=== PATIENT | female | born 1940 | race Caucasian/White ===

== ENCOUNTER 2016-02-27 15:37 | Inpatient (IN) | payer OTHER ==
[~2016-02-27] VITALS: Ht 154.9 cm; Wt 80.6 kg
[~2016-02-27 15:37] MED LIST: ADVIN25050 PO; APR50 PO; ASPEC81 PO; CARV25TA2 PO; CRSUNK PO; FERRTAB18 PO; FLNIN/ NAE; GLIP-197 PO; IPRA1AER2 INH; LEVO1TAB PO; NRV5 PO; OXGN; SERT1TAB88 PO; [UNRECOGNIZED DRUG - CODE] PO
--- NOTE | 2016-02-27 16:05 | EMERGENCY ROOM VISIT NOTE ---
History Report prepared by Lazaro: Matt Alonso Under the Supervision of: Dr. Robert Sanchez M.D. First contact with patient: 15:46 Chief Complaint: SHORTNESS OF BREATH Stated Complaint: DIFFICULTY BREATHING, PAIN IN LEFT SIDE/ABD History of Present Illness The patient is a 75 year old female who presents to the Emergency Room with complaints of worsening shortness of breath that started a week ago. The patient was just here 6 days ago for shortness of breath and was diagnosed with a pleural effusion. Her shortness of breath continued to worsen, especially with walking. She is on nasal cannula 2 liters, 24 hours per day. She is currently at 90% oxygen according to the nursing staff. The patient also complains of some left upper abdominal pain. The patient was just diagnosed with lung cancer today. She does not know what the exact game-plan is yet. She is going to see a cancer specialist at [facility] early next week. The patient denies any chest pain or swelling in her legs. Source of History: patient, nursing staff Onset: A week ago Position: other (global - shortness of breath) Timing: worsening Modifying Factors (Worsening): other (walking) Associated Symptoms: + abdominal pain, No chest pain Note: Associated symptoms: Denies any swelling in her legs. Review of Systems See HPI for pertinent positives & negatives. A total of 10 systems reviewed and were otherwise negative. Past Medical & Surgical Medical Problems: (1) Carotid stenosis (2) COPD (chronic obstructive pulmonary disease) (3) COPD exacerbation (4) DM2 (diabetes mellitus, type 2) (5) Hypertension (6) Hypertensive heart disease (7) Hypothyroid (8) Kidney disease (9) Nocturnal hypoxemia (10) Pulmonary hypertension (11) Respiratory failure, acute Surgical Problems: (1) H/O endarterectomy (2) History of total abdominal hysterectomy Family History Diabetes mellitus Heart disease Hypertension Social History Smoking Status: Former Smoker Alcohol Use: none Drug Use: none Marital Status: Housing Status: lives alone Occupation Status: unemployed Current/Historical Medications Scheduled Amlodipine Besylate (Amlodipine Besylate), 2.5 MG PO QAM Aspirin Enteric Coated (Ecotrin Or Generic), 81 MG PO DAILY Carvedilol (Coreg), 50 MG PO BID Cholecalciferol (Vitamin D3), 1 TAB PO DAILY Cyanocobalamin (Vitamin B-12), 1,000 MCG PO DAILY Fluticasone Prop/Salmeterol (Advair Diskus 250-50 Mcg/Dose), 1 PUFF PO DAILY Fluticasone Propionate (Fluticasone Propionate), 2 SPRAY LATRICE DAILY Glipizide (Glipizide Er), 5 MG PO DAILY Hydralazine HCl (Hydralazine HCl), 75 MG PO TID Ipratropium-Albuterol (Combivent Respimat), 1 PUFFS INH QID Iron-Vitamin C (Vitron-C), 1 TAB PO DAILY Levothyroxine Sodium (Levothyroxine Sodium), 137 MCG PO DAILY Loratadine (Ra Loratadine), 10 MG PO DAILY Oxygen (Oxygen), 2 LITERS NA HS Sertraline HCl (Sertraline HCl), 25 MG PO DAILY Miscellaneous Medications Rosuvastatin Calcium (Rosuvastatin Calcium), Unknown Dose Allergies Coded Allergies: No Known Allergies (Verified , 02/27/16) Physical Exam Vital Signs Date Time Temp Pulse Resp B/P Pulse Ox O2 Delivery O2 Flow Rate FiO2 02/27/16 19:15 69 20 145/80 94 Nasal Cannula 2.0 02/27/16 17:36 73 20 148/84 93 Nasal Cannula 2.0 02/27/16 16:12 68 02/27/16 15:55 Nasal Cannula 2.0 02/27/16 15:55 90 Nasal Cannula 2.0 02/27/16 15:43 36.9 72 18 100/56 86 Nasal Cannula 2.0 Physical Exam CONSTITUTIONAL: Mild distress. HEENT: No icterus, moist mucous membranes NECK: No meningismus, trachea is midline. CARDIOVASCULAR: Regular rate, normal perfusion RESPIRATORY: Unlabored breathing. Clear to auscultation. GASTROINTESTINAL: Non-tender GENITOURINARY: No flank tenderness MUSCULOSKELETAL: Full range of motion NEUROLOGIC: No acute gross focal deficits. PSYCHIATRIC: Normal affect SKIN: Normal for ethnicity. Medical Decision & Procedures ER Provider Diagnostic Interpretation: X-ray results as stated below per my interpretation and radiologist interpretation. Other radiology results as stated below per my review and radiologist interpretation. CT ANGIOGRAM OF THE CHEST CLINICAL HISTORY: Chest pain. Suspected pulmonary embolism. COMPARISON STUDY: 02/21/2016 TECHNIQUE: Following the IV administration of 95 mL of Optiray-320, CT angiogram of the thorax was performed from the thoracic inlet to the lung bases utilizing the pulmonary embolus protocol. Images are reviewed in the axial, sagittal, and coronal planes. IV contrast was administered without complication. MIP imaging was performed. CT DOSE: 488.84 mGy.cm FINDINGS: There is a mediastinal and right hilar mass which narrows the right renal artery. At the subcarinal level, the mass measures 38 mm. The right paratracheal region, the mass measures 5.5 cm. There was no evidence of thoracic aortic dilatation. There were no pulmonary artery filling defects to indicate acute pulmonary embolism. There is a moderate right pleural effusion. There is a small pericardial effusion. There is right middle and lower lobe atelectasis. There is a stable 19 mm right apical opacity. There is underlying pulmonary emphysema. Scattered tiny pulmonary nodules remain stable. IMPRESSION: 1. No CT evidence of acute pulmonary embolism 2. Moderate right pleural effusion with associated right middle lobe and lower lobe atelectasis 3. Persistent right hilar and mediastinal mass/adenopathy. There is secondary narrowing of the right upper lobe pulmonary artery. This mass/adenopathy is almost certainly neoplastic. Again pelvic consultation for biopsy is recommended. Electronically signed by: Jose Lawson M.D. 02/27/2016 6:23 PM Dictated Date/Time: 02/27/2016 6:17 PM CHEST ONE VIEW PORTABLE CLINICAL HISTORY: dyspnea COMPARISON STUDY: 02/23/2016 FINDINGS: The heart is enlarged. There is an increasing right pleural effusion with associated right basilar atelectasis/consolidation. Left lung appears clear. The right hilum remains enlarged.[ IMPRESSION: Increasing right pleural effusion with associated right basilar atelectasis/consolidation. Right hilar enlargement. Electronically signed by: Jose Lawson M.D. 02/27/2016 4:42 PM Dictated Date/Time: 02/27/2016 4:41 PM Laboratory Results 02/27/16 16:30 Red Blood Count 3.73, Mean Corpuscular Volume 99.5, Mean Corpuscular Hemoglobin 30.8, Mean Corpuscular Hemoglobin Concent 31.0, Mean Platelet Volume 9.1, Neutrophils (%) (Auto) 75.6, Lymphocytes (%) (Auto) 13.0, Monocytes (%) (Auto) 9.7, Eosinophils (%) (Auto) 1.0, Basophils (%) (Auto) 0.2, Neutrophils # (Auto) 6.33, Lymphocytes # (Auto) 1.09, Monocytes # (Auto) 0.81, Eosinophils # (Auto) 0.08, Basophils # (Auto) 0.02 02/27/16 16:30 Test 02/27/16 16:30 02/27/16 19:33 White Blood Count 8.37 K/uL (4.8-10.8) Red Blood Count 3.73 M/uL (4.2-5.4) Hemoglobin 11.5 g/dL (12.0-16.0) Hematocrit 37.1 % (37-47) Mean Corpuscular Volume 99.5 fL (80-100) Mean Corpuscular Hemoglobin 30.8 pg (25-34) Mean Corpuscular Hemoglobin Concent 31.0 g/dl (32-36) Platelet Count 167 K/uL (130-400) Mean Platelet Volume 9.1 fL (7.4-10.4) Neutrophils (%) (Auto) 75.6 % Lymphocytes (%) (Auto) 13.0 % Monocytes (%) (Auto) 9.7 % Eosinophils (%) (Auto) 1.0 % Basophils (%) (Auto) 0.2 % Neutrophils # (Auto) 6.33 K/uL (1.4-6.5) Lymphocytes # (Auto) 1.09 K/uL (1.2-3.4) Monocytes # (Auto) 0.81 K/uL (0.11-0.59) Eosinophils # (Auto) 0.08 K/uL (0-0.5) Basophils # (Auto) 0.02 K/uL (0-0.2) RDW Standard Deviation 50.0 fL (36.4-46.3) RDW Coefficient of Variation 13.8 % (11.5-14.5) Immature Granulocyte % (Auto) 0.5 % Immature Granulocyte # (Auto) 0.04 K/uL (0.00-0.02) Prothrombin Time 10.4 SECONDS (9.0-12.0) Prothromb Time International Ratio 1.0 (0.9-1.1) Activated Partial Thromboplast Time 20.2 SECONDS (21.0-31.0) Partial Thromboplastin Ratio 0.8 Anion Gap 10.0 mmol/L (3-11) Est Creatinine Clear Calc Drug Dose 42.1 ml/min Estimated GFR () 56.5 Estimated GFR (Non- 48.7 BUN/Creatinine Ratio 15.8 (10-20) Calcium Level 8.8 mg/dl (8.5-10.1) Magnesium Level 2.1 mg/dl (1.8-2.4) Troponin I < 0.015 ng/ml (0-0.045) Pro-B-Type Natriuretic Peptide 572 pg/ml (0-1800) Labs reviewed by ED physician. Medications Administered Medications (Trade) Dose Ordered Sig/Gilbert Route Start Time Stop Time Status Last Admin Dose Admin Albuterol/ Ipratropium (Duoneb) 3 ml UD STAT INH 02/27/16 19:35 02/27/16 20:04 DC 02/27/16 20:13 3 ML ECG Indication: SOB/dyspnea Rate (beats per minute): 64 Rhythm: normal sinus Findings: other (normal axis, RBBB, non-specific ST findings) Comparison ECG Date: no prior available ED Course 1551: Past medical records reviewed. The patient was evaluated in room C4. A complete history and physical examination was performed. 1858: I reevaluated the patient and she is resting comfortably. The patient verbally expressed agreement and understanding of the treatment plan. The patient will be evaluated for further treatment. 1899: I discussed the patient with Fatemeh Walsh - she will evaluate the patient for further treatment. Medical Decision Differential diagnoses include: Cancerous complications, pleural effusion, CHF, pneumonia. 75-year-old presents into the emergency department with her family for evaluation of worsening dyspnea especially with exertion. She states that she was seen by her doctor today and given a new diagnosis of presumed small cell lung cancer. She was recently discharged from hospital. X-rays remarkable for right-sided pleural effusion as well as hypoxia with exertion of roughly 86% despite using 2 L nasal cannula. Given increasing hypoxia and her diagnosis of cancer with pleural effusion decision made to admit. Consults Time Called: 1857 Consulting Physician: Fatemeh Walsh Returned Call: 1899 I discussed the patient with Fatemeh Walsh - she will evaluate the patient for further treatment. Impression Primary Impression: Pleural effusion Additional Impression: Hypoxia Scribe Attestation The scribe's documentation has been prepared under my direction and personally reviewed by me in its entirety. I confirm that the note above accurately reflects all work, treatment, procedures, and medical decision making performed by me. Departure Information Dispostion Being Evaluated By Hospitalist Referrals Callie Verdugo M.D. (PCP) Patient Instructions My [facility] Problem Qualifiers
[2016-02-27] MEDS ORDERED: OPTIRAY 320 IV PRN (16:15)
--- NOTE | 2016-02-27 16:45 | DIAGNOSTIC IMAGING REPORT ---
CHEST ONE VIEW PORTABLE CLINICAL HISTORY: dyspnea COMPARISON STUDY: 02/23/2016 FINDINGS: The heart is enlarged. There is an increasing right pleural effusion with associated right basilar atelectasis/consolidation. Left lung appears clear. The right hilum remains enlarged.[ IMPRESSION: Increasing right pleural effusion with associated right basilar atelectasis/consolidation. Right hilar enlargement. Electronically signed by: Jose Lawson M.D. 02/27/2016 4:42 PM Dictated Date/Time: 02/27/2016 4:41 PM
[2016-02-27 16:50] LABS: BASO % 0.2 %; BASO ABS # 0.02 K/uL (0-0.2); COMPLETE YES; HEMATOCRIT 37.1 % (37-47); IG% 0.5 %; LYMPH ABS # 1.09 K/uL (1.2-3.4); MEAN CELL VOLUME 99.5 fL (80-100); MEAN CORPUSCULAR HEMOGLOBIN 30.8 pg (25-34); MEAN PLATELET VOLUME 9.1 fL (7.4-10.4); MONO % 9.7 %; NEUT % 75.6 %; PLATELET COUNT 167 K/uL (130-400); RED BLOOD COUNT 3.73 M/uL (4.2-5.4); WHITE BLOOD COUNT 8.37 K/uL (4.8-10.8)
[2016-02-27 17:00] LABS: PARTIAL THROMBOPLASTIN RATIO 0.8; PROTHROMBIN TIME (PATIENT) 10.4 SECONDS (9.0-12.0)
[2016-02-27] MEDS ORDERED: SYN137 PO (17:15)
[2016-02-27] MEDS ORDERED: ROSU40TA18 (17:15)
[2016-02-27 17:20] LABS: BLOOD UREA NITROGEN 17 mg/dl (7-18); BUN/CREATININE RATIO 15.8 (10-20); CALCIUM 8.8 mg/dl (8.5-10.1); CARBON DIOXIDE 29 mmol/L (21-32); CHLORIDE 101 mmol/L (98-107); GLUCOSE 135 mg/dl (70-99); POTASSIUM 4.2 mmol/L (3.5-5.1); SODIUM 140 mmol/L (136-145)
--- NOTE | 2016-02-27 18:25 | DIAGNOSTIC IMAGING REPORT ---
ADDENDUM Addendum: There is a voice recognition error in impression #3 The last sentence in impression #3 should read as follows: Again pulmonary consultation for biopsy is recommended. Electronically signed by: Jose Lawson M.D. 02/27/2016 10:21 PM Dictated Date/Time: 02/27/2016 10:[address] ANGIOGRAM OF THE CHEST CLINICAL HISTORY: Chest pain. Suspected pulmonary embolism. COMPARISON STUDY: 02/21/2016 TECHNIQUE: Following the IV administration of 95 mL of Optiray-320, CT angiogram of the thorax was performed from the thoracic inlet to the lung bases utilizing the pulmonary embolus protocol. Images are reviewed in the axial, sagittal, and coronal planes. IV contrast was administered without complication. MIP imaging was performed. CT DOSE: 488.84 mGy.cm FINDINGS: There is a mediastinal and right hilar mass which narrows the right renal artery. At the subcarinal level, the mass measures 38 mm. The right paratracheal region, the mass measures 5.5 cm. There was no evidence of thoracic aortic dilatation. There were no pulmonary artery filling defects to indicate acute pulmonary embolism. There is a moderate right pleural effusion. There is a small pericardial effusion. There is right middle and lower lobe atelectasis. There is a stable 19 mm right apical opacity. There is underlying pulmonary emphysema. Scattered tiny pulmonary nodules remain stable. IMPRESSION: 1. No CT evidence of acute pulmonary embolism 2. Moderate right pleural effusion with associated right middle lobe and lower lobe atelectasis 3. Persistent right hilar and mediastinal mass/adenopathy. There is secondary narrowing of the right upper lobe pulmonary artery. This mass/adenopathy is almost certainly neoplastic. Again pelvic consultation for biopsy is recommended. Electronically signed by: Jose Lawson M.D. 02/27/2016 6:23 PM Dictated Date/Time: 02/27/2016 6:17 PM
[2016-02-27] MEDS ORDERED: ALBUT/IPRATROP 3MG/0.5MG NEB 3 ML VIAL INH STA (19:35)
[2016-02-27 20:56] LABS: ISTAT ARTERIAL BLOOD GAS HCO3 28 meq/L (19-24); ISTAT ARTERIAL BLOOD GAS PCO2 52 mmHg (35-46); ISTAT ARTERIAL BLOOD GAS PO2 63 mmHg (80-95); ISTAT ARTERIAL BLOOD GAS pH 7.34 (7.35-7.45); ISTAT CARBON DIOXIDE 30 mEq/l (24-31)
[2016-02-27 21:00] LABS: MAGNESIUM 2.1 mg/dl (1.8-2.4)
[2016-02-27 21:13] VITALS: BP 146/75; PULSE 66; TEMP 36.7; Ht 154.9 cm; Wt 80.6 kg
[2016-02-27 21:47] VITALS: O2SAT 94
[2016-02-27] MEDS: ENOXAPARIN 40 MG/0.4 ML SYR SC SCH (22:02)
[2016-02-27] MEDS: ACETAMINOPHEN 325 MG TAB PO PRN (22:07)
[2016-02-27 22:21] LABS: ALKALINE PHOSPHATASE 43 U/L (45-117); ALT/SGPT 29 U/L (12-78); AST/SGOT 26 U/L (15-37)
--- NOTE | 2016-02-27 22:41 | DIAGNOSTIC IMAGING REPORT ---
CT SCAN OF THE ABDOMEN AND PELVIS WITHOUT CONTRAST CLINICAL HISTORY: Left lower quadrant abdominal pain COMPARISON STUDY: No previous studies for comparison. TECHNIQUE: CT scan of the abdomen and pelvis was performed from the lung bases to the proximal femurs. Images are reviewed in the axial, sagittal, and coronal planes. IV contrast was not administered for this examination. CT DOSE: 549.59 mGy.cm FINDINGS: Lower chest: There is pathologic mediastinal adenopathy. There is a right pleural effusion. There is right middle lobe and right lower lobe atelectasis/consolidation. There is a small pericardial effusion. Liver: The unenhanced liver is normal in size, contour, and attenuation. There is no intrahepatic biliary ductal dilatation. Gallbladder: Unremarkable. Spleen: Normal in size and attenuation. Pancreas: Unremarkable. Adrenal glands: Unremarkable. Kidneys: There is contrast excretion secondary to the CT scan performed earlier in the day. There is a 9 mm right renal cyst. There is no hydronephrosis. Bowel: There are no transition zones indicate bowel obstruction. There is no evidence of acute diverticulitis. There is no evidence of acute appendicitis. Peritoneum: There is no intraperitoneal free air or abdominal ascites. Vasculature: The abdominal aorta is normal in course and caliber. Adenopathy: There is no abdominal or pelvic adenopathy Pelvic viscera: The uterus appears surgically absent Skeletal structures: No destructive osseous lesions are seen. IMPRESSION: 1. No evidence of bowel obstruction. No evidence of free air 2. No acute inflammatory changes within the abdomen or pelvis 3. Pathologic mediastinal and right hilar adenopathy 4. Moderate right pleural effusion with right middle lobe and right lower lobe atelectatic change 5. Small pericardial effusion. Coronary artery calcifications. Electronically signed by: Jose Lawson M.D. 02/27/2016 10:39 PM Dictated Date/Time: 02/27/2016 10:34 PM
[2016-02-27] MEDS ORDERED: GLUCOSE 40% GEL 15 GM TUBE PO PRN (23:45)
[2016-02-27] MEDS ORDERED: GLUCOSE 10 TABS/TUBE PO PRN (23:45)
[2016-02-27] MEDS ORDERED: ONDANSETRON INJ 2 MG/ML 2 ML VIAL IV PRN (23:45)
[2016-02-27] MEDS ORDERED: GLUCAGON FOR INJ 1 MG VIAL SQ PRN (23:45)
[2016-02-27] MEDS ORDERED: DEXTROSE 50% 50 ML SYR IV PRN (23:45)
[2016-02-28] VITALS (8 sets, daily range): BP systolic 114–150; BP diastolic 56–76; PULSE 56–64; TEMP 36.2–36.9; O2SAT 90–96
[2016-02-28] MEDS ORDERED: LORAZEPAM 0.5 MG TAB PO ONE (01:00)
[2016-02-28] MEDS: LEVOTHYROXINE 137 MCG TAB PO SCH (06:00)
[2016-02-28 07:19] LABS: BASO % 0.4 %; BASO ABS # 0.03 K/uL (0-0.2); COMPLETE YES; EOS % 1.9 %; HEMATOCRIT 35.7 % (37-47); IG% 0.3 %; LYMPH % 17.2 %; LYMPH ABS # 1.25 K/uL (1.2-3.4); MEAN CELL VOLUME 98.6 fL (80-100); MEAN CORPUSCULAR HEMOGLOBIN 30.7 pg (25-34); MEAN CORPUSCULAR HGB CONC 31.1 g/dl (32-36); MEAN PLATELET VOLUME 9.1 fL (7.4-10.4); MONO % 11.8 %; NEUT % 68.4 %; PLATELET COUNT 157 K/uL (130-400); RED BLOOD COUNT 3.62 M/uL (4.2-5.4); WHITE BLOOD COUNT 7.28 K/uL (4.8-10.8)
[2016-02-28] MEDS: INSULIN ASPART 100 UNITS/ML 3 ML PEN SC SCH ×4 (07:59→20:44)
[2016-02-28] MEDS: FLUTICASONE PROPIONATE NA SPR 16 GM BTL NAE SCH (08:03)
[2016-02-28] MEDS: FLUTICASONE/SALMETEROL 250/50 (ADVAIR) 14 PUFF/1 INHALER INH SCH ×2 (08:03→21:02)
[2016-02-28] MEDS: SERTRALINE HCL 50 MG TAB PO SCH (08:04)
[2016-02-28] MEDS: ROSUVASTATIN CALCIUM 20 MG TAB PO SCH (08:04)
[2016-02-28] MEDS: CARVEDILOL 25 MG TAB PO SCH ×2 (08:05→21:03)
[2016-02-28] MEDS: LORATADINE 10 MG TAB PO SCH (08:05)
[2016-02-28] MEDS: ASPIRIN 81 MG ECTAB PO SCH (08:05)
[2016-02-28] MEDS: AMLODIPINE BESYLATE 5 MG TAB PO SCH (08:05)
--- NOTE | 2016-02-28 08:12 | HISTORY & PHYSICAL EXAMINATION ---
DATE OF ADMISSION: 02/27/2016 PRIMARY CARE DOCTOR: Dr. Verdugo. Hx obtained from px and records. CHIEF COMPLAINT: Shortness of breath. HISTORY OF PRESENT ILLNESS: Medical history significant for chronic hypoxemic respiratory failure secondary to COPD on home O2, past tobacco abuse, hypertension, peripheral vascular disease, DM2 on oral meds, recent diagnosis of small cell lung cancer. Recent confinement last week for pleural effusion, likely malignant. Thoracenteses done. 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 Findings disclosed to the patient 2 days ago by PCP. Yesterday patient noted sudden shortness of breath, no chest pain, no cough symptoms. Patient complaining of some achy left-sided abdominal pain. Brought to the Emergency Room. O2 sats 86 on nasal cannula. Denies weight gain. MEDICAL HISTORY: As above. SURGERIES: Vascular procedures, total abdominal hysterectomy. HOME MEDICATIONS: Include Cholecalciferol, glipizide, ipratropium, oxygen, amlodipine, aspirin, carvedilol, fluticasone, hydralazine, levothyroxine, loratadine, Rosuvastatin, sertraline. FAMILY HISTORY: Heart disease. PERSONAL AND SOCIAL HISTORY: Past tobacco abuse. No chronic intake of alcoholic beverages. REVIEW OF SYSTEMS: As per HPI, all other ROS negative. PHYSICAL EXAMINATION: VITAL SIGNS: Blood pressure was noted to be 100/50, pulse rate 72, respiratory rate 18, temperature 36.9, sats 86 on 2 liters. GENERAL: Noted to be in minimal respiratory distress, looks younger for stated age. SKIN pallor HEENT: Pale palpebral conjunctivae. Dry buccal mucosa. nasal cannula in place NECK: No JVD. Supple. CHEST: Decreased breath sounds,R. HEART: Regular rate and rhythm. ABDOMEN: Minimal tenderness on the LUQ. EXTREMITIES: No edema, tenderness. NEUROLOGIC: No gross focality. LABS: Hemoglobin was noted to be 11.5, hematocrit 37.1, white cells 8.3, platelets 167. Sodium was noted to be 140, potassium 4.2, chloride 101, CO2 of 29, BUN 70, creatinine 1.1, glucose 135 Hemoglobin A1c on February 2016 was 6.3. CTA no pulmonary embolism, right pleural effusion with atelectasis, right hilar mediastinal adenopathy. CT abdomen and pelvis showed small pericardial effusion, no bowel obstruction. ABG pH 7.4, pCO2 of 52, pO2 of 63, 90% on 2L ASSESSMENT: 1. Acute on chronic hypoxemic respiratory failure secondary to malignant pleural effusion re-accumulation recent diagnosis of small cell lung cancer hx COPD, past tobacco abuse 2. pericardial effusion, incidental finding on CT. 3. HTN, stable 4. Hx PVD sp surgery 5. DM2 on oral meds, well controlled as of recent HgA1c. PLAN: PCU supplemental O2. Nebs p.r.n. Pulmonary consult. Recurrent pleural effusion. (Px known to Dr. Hay) Oncology consult RE SCLC, new dx TTE RE pericardial effusion ISS BG goal 140-180 DVT prophylaxis, Lovenox subQ. Full code. MTDD
[2016-02-28] MEDS ORDERED: NON-FORMULARY MEDICATION (Iron-Vitamin C (Vitron-C) 1 TAB) PO SCH (09:00)
[2016-02-28] MEDS ORDERED: NURSING VERBAL MED ORDER ONE (09:15)
[2016-02-28] MEDS ORDERED: LIDOCAINE HCL 1% 20 ML VIAL INFIL SCH (10:00)
--- NOTE | 2016-02-28 10:58 | PULMONARY CONSULTATION ---
DATE OF CONSULTATION: 02/28/2016 DATE OF CONSULTATION: 02/28/2016. HISTORY OF PRESENT ILLNESS: The patient is a 75-year-old female who was readmitted to the hospital with respiratory insufficiency with hypercapnia and Dr. Lujan has asked me to evaluate the patient from a pulmonary standpoint. She was seen in the Emergency Room and general is followed by Dr. Verdugo with worsening shortness of breath that started actually several days prior to admission. She denies any cough or chest pain, had significant shortness of breath when she was driving, stopped at a relative's house and then was brought to the hospital. In the Emergency Room, she was found to be stable with an oxygen saturation of 86% on 2 liters, increased to 94% on 2 liters. Hemodynamically stable with blood pressure 100/56, pulse 72 and regular. She denies any chest pain, fevers, night sweats, orthopnea or peripheral edema. She actually was fairly active at home following her recent hospitalization. CT angiogram showed no evidence of pulmonary embolism. It does reveal recurrence of the moderate sized right pleural effusion with mass-like abnormality of the right upper lobe with narrowing of the right upper lobe pulmonary artery and significant right hilar adenopathy. She was scheduled for an evaluation for consideration for bronchoscopy this week. She recently was hospitalized with a fairly large right-sided pleural effusion and had a thoracentesis done by [facility] Lion on the . He removed 830 mL of serosanguineous fluid and is consistent with small cell carcinoma with metastasis. She was discharged thereafter since she was quite stable and now has recurrent right pleural effusion with regional atelectasis at the right base. This most certainly is etiology for her admission and readmission. Dr. Butts was not here to perform any procedure such as bronchoscopy or VATS procedure which I believe the patient probably will need now. She is sitting in the chair now, states she is comfortable with oxygen and her treatment since last night but she has not been active. PAST MEDICAL HISTORY: Positive for carotid artery stenosis, moderate degree chronic obstructive lung disease, diabetes, hypertension, chronic kidney disease, hypothyroidism, mild pulmonary hypertension, right lower lobe and left lower lobe nodules. PAST SURGICAL HISTORY: Carotid endarterectomy, hysterectomy for dysfunctional uterine bleeding. FAMILY HISTORY: Significant for coronary artery disease, hypertension and diabetes. Her of lung cancer about 14 years ago. SOCIAL HISTORY: She has about a [id number] history of cigarette smoking, quit several years ago. She is not an alcohol user. From an occupational standpoint, she has not had any industrial exposures. ALLERGIES: None. MEDICATIONS: Noted. According to the records had a chest x-ray done in March 2007. CAT scan of the chest done at that time revealed small pericardial effusion with some infiltrative processes at the lung bases consistent with infection. She had a PET scan done on 10/16/2014 that was negative. There was some nodular densities in the right upper lobe in the periphery that did not show any metabolic activity, was hilar adenopathy that showed no activity either at that time. She also had a repeat CT of the chest done last August that showed progressive pulmonary nodularity in both hemithoraces. Neoplastic process was thought to be the most likely etiology. PHYSICAL EXAMINATION: GENERAL: Examination now shows the patient to be quite comfortable, pleasant and cooperative. VITAL SIGNS: Her blood pressure is 150/56, oxygen saturation 94% on 2 liters, pulse is 60 and regular, respiratory rate 20. She is afebrile. Weight 81.1 kilograms. She was 81.8 kilograms on the 22 of February at the time of discharge. HEAD, EYES, EARS, NOSE, AND THROAT: Unremarkable. I do not detect any adenopathy in the supraclavicular, axillary or submandibular area. HEART: Regular rate and rhythm. No murmurs are heard. LUNGS: Reveal decreased breath sounds over the entire right hemithorax with dullness from the scapula distally down to the base. Left lung is clear. ABDOMEN: The abdomen is soft and nontender. EXTREMITIES: She has no cyanosis, clubbing or edema. EKG shows normal sinus rhythm with a right bundle branch block with inferolateral ischemia. T-wave inversion is noted in the inferior leads when compared to the previous EKG of February 20. CAT scan of the chest is noted as above and shows significant recurrence of the right-sided pleural effusion. White count 7.28, hemoglobin 11.1, platelet count 157,000. Coagulation profile unremarkable. Chemistry profile unremarkable with normal liver function studies, lipase of 228. Blood gas revealed pH 7.43, pCO2 of 52, pO2 of 63 on what appears to be 2 liters of oxygen. IMPRESSION: 1. Respiratory insufficiency with hypercapnia. I believe this is related to recurrent right pleural effusions with atelectasis at the right base along with moderate degree of emphysema. 2. Right pleural effusion consistent with metastatic small cell carcinoma. 3. Myocardial ischemia with right bundle branch block noted on EKG. 4. Chronic obstructive pulmonary disease with exacerbation. RECOMMENDATIONS: 1. Cardiology evaluation because of the myocardial ischemia noted on EKG. This is different from the echocardiogram from the 20 of February, although at that time there was some ischemic changes noted, at least some T-wave inversion in the anterior lateral leads as well. Certainly silent angina along with a large right pleural effusion and COPD could be the etiology for her dyspnea and hypercapnia. 2. Evaluation with Dr. Butts for consideration for VATS procedure and bronchoscopy. 3. Oncology evaluation with Dr. Yanez or Dr. Ortega from the [facility] system. The patient's primary care provider is Dr. Verdugo. 4. Continue with her present medications including the Advair, Flonase, Lovenox for good DVT prophylaxis and she could use DuoNeb if needed. I believe the dyspnea most likely is secondary to recurrent right pleural effusion rather than COPD with exacerbation at this point. Thanks for asking me to evaluate Ms. Faustin and I would be glad to see her again in the future if you desire.
--- NOTE | 2016-02-28 12:34 | Medical Consult ---
Consultation Date of Consultation: Feb 28, 2016. Attending Physician: Yu Goel M.D. 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 Date of consultation: 02/28/[address] Juan Jose Parks. HPI: 75-year-old female, who has longstanding history of smoking which was discontinued sometime back, recently she was admitted at [facility] for symptomatic right pleural effusion, had thoracocentesis, pleural cytology positive for malignant cells, consistent with small cell lung cancer, now she is admitted for increasing shortness of breath, imaging study shows moderate right pleural effusion, I saw her at bedside, her son and daughter-in- law was also at bedside, I reviewed her medical records. She had several imaging studies in the last few years including PET-CT scan on 2 occasions since 2014, some mild metabolic active right lung nodules noted but no definitive diagnosis of cancer diagnosis was made, recently she had some increasing shortness of breath, she was admitted at [facility] , found to have new right pleural effusion which was not that in the PET-CT scan done in September,. Further imaging study and workup as follows Imaging studies: -PET-CT scan done on 10/16/2014 at [facility] showed no clear FDG avid lesions. Right lung nodule RT without any FDG uptake noted. Several small lymph nodes noted in the hilar mediastinal lesion which are also not metabolic active. -PET-CT scan done on 09/25/2015 showed multiple FDG avid right lung nodules, scattered patchy airspace disease which is not FDG avid, some uptake noted in the ascending colon at hepatic flexure region. -CT scan of the chest done on 02/21/2016 showed no evidence of pulmonary embolism , moderate right pleural effusion with compressive atelectatic changes noted in the right middle lobe and lower lobe. Progressive pathologically enlarged mediastinal and hilar lymphadenopathy. 4.1 x 1.1 cm right lower lobe opacity noted, scattered tiny lung nodules noted. -CT scan of the chest done on 02/27/2016 showed no evidence of pulmonary embolism , moderate right pleural effusion, persistent right hilar and mediastinal lymphadenopathy, 1.9 cm right apical opacity noted. -CT scan of the abdomen and pelvis done without intravenous contrast on 2016 showed no acute changes, no liver lesions, pathologic enlarged mediastinal right hilar lymphadenopathy noted, moderate right pleural effusion with right middle lobe and right lower lobe atelectatic changes, small pleural effusion. No ascites noted. Pathology: -Pleural fluid cytology--> positive for malignant cells consistent with small cell carcinoma. (02/23/2016). - splenic flexure polypectomy--> tubular adenoma (05/12/2007) -TNM staging--> T4 based on is little lung nodules noted in the previous imaging studies, N2, M1a based on malignant pleural effusion), stage IV disease. Presently she is receiving nasal cannula supplemental oxygen, sitting comfortably in the chair, no leg edema, no new cardiac or pulmonary symptoms, no hemoptysis, no significant weight loss, no headache. No focal neurological symptoms. No neuropathy symptoms. REVIEW OF SYSTEMS: GENERAL: No change in weight, current weight is around 181 lb, feeling slightly weak and tired but no fever or chills. SKIN: No skin rash, some bruising involving the left upper extremity when recently she was admitted Hospital, it is at the IV site . HEAD: No new headache, no dizziness. EYES: No recent change in the vision, no diplopia, EARS: No earache no tinnitus, NOSE: No epistaxis, No nasal discharge or stuffiness, MOUTH: No sores, no dysphagia, no hoarseness of voice, NECK: No lumps, No swelling in thyroid area. No stiffness. PULMONARY: Cough with scanty white expectant, no hemoptysis, shortness of breath on minimal exertion present, no chest pain, intermittent wheezing. CARDIOVASCULAR: No anginal chest pain, no PND, no orthopnea. No palpitation, no leg edema. No syncope. GASTROINTESTINAL: No abdominal pain, no nausea or vomiting. No diarrhea, No constipation. No blood in stool or black tarry stools. No abdominal distention. UROLOGIC: No burning urination. No hematuria. MUSCULOSKELETAL: She does complain of some nonspecific back pain, no other joint pain or swelling.. HEMATOLOGIC: No anemia, no bleeding disorder, No bruising. NEUROLOGIC: No seizures, no focal weakness, no speech difficulty, No memory disturbances. No tingling or numbness of the extremities. PSYCHIATRIC: No depression. No anxiety. No psychosis. Past medical and surgical history: - S/P right carotid endarterectomy in 2002, S/P left carotid enterectomy in November, -COPD, on oxygen therapy for the last 3-4 years. -hypertension, diabetes mellitus. -S/P hysterectomy in the past. Social history: She discontinue smoking habit several years back. Denies any ETOH abuse. Family history: Her diagnosis lung cancer about 16 years back and because of that. No other significant family history. Medications: please review her chart for detailed list of medications. Allergies:None On Exam: - Alert and oriented x3, well built woman, not in any distress. - HEENT: no icterus, no pallor, Throat:Normal. - Neck: No palpable cervical lymphadenopathy. - Chest: Decreased air entry in the right lung. - Abdomen: soft, nontender, no hepatomegaly, no splenomegaly. - No focal neuro deficit. - Extremities: no finger clubbing, no leg edema. Lab: -WBC 8300, H&H of 11.5/37, Platelet count of 167,000, BUN/Creat: 17/1.1, calcium 8.8, normal liver function test (02/27/2016) -BNP--> 572 which is in normal range. ASSESSMENT AND PLAN: 75-year-old female, a case of small cell carcinoma of the lung, she presented with the malignant right pleural effusion, pleural fluid cytology positive for malignant cells consistent with small cell carcinoma, imaging study showed some multiple lung nodules involving the right lung, significantly enlarged mediastinal and right hilar lymphadenopathy noted, no clear evidence of distant metastatic disease noted in the CT scan of the abdomen and pelvis, no focal neurological symptoms, discontinued smoking habit several years back, has few other comorbid conditions like hypertension, diabetes mellitus, COPD , she is on oxygen therapy for the last 3-4 years, she says that as of yesterday she was doing quite well, ambulating slowly by herself, she lives by herself. I reviewed with her and the her family members who had bedside regarding the diagnostic workup done in her case, she has stage IV disease, overall treatment goal which would be palliative and not curative, today she was seen by Dr. Butts, planning for PleurX catheter placement in early next week. For further staging workup, I would like to have following imaging studies: -MRI of the brain with and without intravenous contrast. -Bone scan. I would like to have uric acid and LDH. I also discussed with them regarding the role of systemic chemotherapy for metastatic small cell lung cancer that can be considered in her case, I would consider for combination of carboplatin and etoposide chemotherapy, reviewed with them regarding the chemotherapy treatment schedule, side effect profile. We can consider for starting chemotherapy as an outpatient. No role of radiation treatment at this time. If brain imaging study shows evidence of metastatic disease in the brain, she will need radiation treatment. If she has no evidence of brain metastatic disease and see response very well , may consider for whole-brain prophylactic radiation treatment. She has poor venous access, I would consider for port placement while she is in the hospital. Thanks for the consultation. Veto Ortega MD Hematology/Oncology (This note was completed using the dictation program Fluency Direct. As such, there may be misspellings, word substitutions, or other variations that should not change the essence of the clinical content of this encounter note. If there is need for further clarification, please direct questions to the provider listed above.) Past Medical/Surgical History Medical Problems: (1) Hypoxia Status: Acute (2) Hypoxia Status: Acute (3) Hypoxia Status: Acute (4) Pleural effusion Status: Acute (5) Pleural effusion Status: Acute (6) SOB (shortness of breath) Status: Acute Family History Diabetes mellitus Heart disease Hypertension Social History Smoking Status: Never Smoker Drug Use: none Marital Status: Housing Status: lives alone Occupation Status: unemployed Allergies Coded Allergies: No Known Allergies (Verified , 02/27/16) Current Inpatient Medications Current Inpatient Medications Medications (Trade) Dose Ordered Sig/Gilbert Route Start Time Stop Time Status Last Admin Dose Admin Ioversol (Optiray 320) 125 ml UD PRN IV 02/27/16 16:15 03/02/16 16:14 Albuterol/ Ipratropium (Duoneb) 3 ml Q2H PRN INH 02/27/16 19:45 03/28/16 19:44 Enoxaparin Sodium (Lovenox Inj) 40 mg Q24H SC 02/27/16 22:00 03/28/16 21:59 02/27/16 22:02 40 MG Acetaminophen (Tylenol Tab) 650 mg Q4H PRN PO 02/27/16 21:15 03/28/16 21:14 02/27/16 22:07 650 MG Amlodipine Besylate (Norvasc Tab) 2.5 mg QAM PO 02/28/16 09:00 2/20/17 08:59 02/28/16 08:05 2.5 MG Aspirin (Ecotrin Tab) 81 mg DAILY PO 02/28/16 09:00 03/29/16 08:59 02/28/16 08:05 81 MG Carvedilol (Coreg Tab) 50 mg BID PO 02/28/16 09:00 03/29/16 08:59 02/28/16 08:05 50 MG Salmeterol Xinafoate/ Fluticasone (Advair Diskus 250/50 Inh) 1 puff BID INH 02/28/16 09:00 03/29/16 08:59 02/28/16 08:03 1 PUFF Fluticasone Propionate (Flonase Nasal [place]) DAILY LATRICE 02/28/16 09:00 03/29/16 08:59 02/28/16 08:03 2 SPRAYS Hydralazine HCl (Apresoline Tab) 75 mg TID PO 02/28/16 09:00 03/29/16 08:59 02/28/16 08:06 75 MG Levothyroxine Sodium (Synthroid Tab) 137 mcg DAILYBB PO 02/28/16 06:30 03/29/16 06:29 02/28/16 06:00 137 MCG Loratadine (Claritin Tab) 10 mg DAILY PO 02/28/16 09:00 03/29/16 08:59 02/28/16 08:05 10 MG Sertraline HCl (Zoloft Tab) 25 mg DAILY PO 02/28/16 09:00 03/29/16 08:59 02/28/16 08:04 25 MG Rosuvastatin Calcium (Crestor Tab) 40 mg QAM PO 02/28/16 09:00 03/29/16 08:59 02/28/16 08:04 40 MG Insulin Aspart (novoLOG ASPART) SLIDING SCALE If C... ACHS SC 02/28/16 06:30 03/29/16 06:29 Glucose (Glucose 40% Gel) 15-30 GRAMS 15 GRAMS... UD PRN PO 02/27/16 23:45 03/28/16 23:44 Glucose (Glucose Chew Tab) 4-8 Tablets 4 Tabl... UD PRN PO 02/27/16 23:45 03/28/16 23:44 Dextrose (Dextrose 50% 50ML Syringe) 25-50ML OF 50% DW IV FOR... UD PRN IV 02/27/16 23:45 03/28/16 23:44 Glucagon (Glucagon Inj) 1 mg UD PRN SQ 02/27/16 23:45 03/28/16 23:44 Hydromorphone HCl (Dilaudid Inj) 0.5 mg Q3H PRN IV 02/27/16 23:45 03/12/16 23:44 Tramadol HCl (Ultram Tab) 25 mg Q6H PRN PO 02/27/16 23:45 03/28/16 23:44 Ondansetron HCl (Zofran Inj) 4 mg Q6H PRN IV 02/27/16 23:45 03/28/16 23:44 Lidocaine HCl (Xylocaine 1% Inj (Local)) 20 ml TODAY@1000 INFIL 02/28/16 10:00 02/28/16 23:59 Physical Exam Date Time Temp Pulse Resp B/P Pulse Ox O2 Delivery O2 Flow Rate FiO2 02/28/16 12:19 Nasal Cannula 2.0 02/28/16 11:47 36.4 59 20 138/69 90 02/28/16 08:00 36.6 64 20 150/56 90 02/28/16 07:48 Nasal Cannula 2.0 02/28/16 04:03 Nasal Cannula 2.0 02/28/16 03:57 36.2 62 20 137/70 94 2.0 02/28/16 00:09 36.7 57 20 123/67 91 2.0 02/28/16 00:05 Nasal Cannula 2.0 02/27/16 21:47 94 Nasal Cannula 2.0 02/27/16 21:15 Nasal Cannula 2.0 02/27/16 21:13 36.7 66 20 146/75 02/27/16 20:37 85 20 138/52 96 Room Air 02/27/16 19:15 69 20 145/80 94 Nasal Cannula 2.0 02/27/16 17:36 73 20 148/84 93 Nasal Cannula 2.0 02/27/16 16:12 68 02/27/16 15:55 Nasal Cannula 2.0 02/27/16 15:55 90 Nasal Cannula 2.0 1/20/17 15:43 36.9 72 18 100/56 86 Nasal Cannula 2.0 Laboratory Results Last 24 Hours Test 02/27/16 16:30 02/27/16 20:39 02/28/16 06:36 02/28/16 07:56 White Blood Count 8.37 K/uL 7.28 K/uL Red Blood Count 3.73 M/uL 3.62 M/uL Hemoglobin 11.5 g/dL 11.1 g/dL Hematocrit 37.1 % 35.7 % Mean Corpuscular Volume 99.5 fL 98.6 fL Mean Corpuscular Hemoglobin 30.8 pg 30.7 pg Mean Corpuscular Hemoglobin Concent 31.0 g/dl 31.1 g/dl Platelet Count 167 K/uL 157 K/uL Mean Platelet Volume 9.1 fL 9.1 fL Neutrophils (%) (Auto) 75.6 % 68.4 % Lymphocytes (%) (Auto) 13.0 % 17.2 % Monocytes (%) (Auto) 9.7 % 11.8 % Eosinophils (%) (Auto) 1.0 % 1.9 % Basophils (%) (Auto) 0.2 % 0.4 % Neutrophils # (Auto) 6.33 K/uL 4.98 K/uL Lymphocytes # (Auto) 1.09 K/uL 1.25 K/uL Monocytes # (Auto) 0.81 K/uL 0.86 K/uL Eosinophils # (Auto) 0.08 K/uL 0.14 K/uL Basophils # (Auto) 0.02 K/uL 0.03 K/uL RDW Standard Deviation 50.0 fL 50.3 fL RDW Coefficient of Variation 13.8 % 13.8 % Immature Granulocyte % (Auto) 0.5 % 0.3 % Immature Granulocyte # (Auto) 0.04 K/uL 0.02 K/uL Prothrombin Time 10.4 SECONDS Prothromb Time International Ratio 1.0 Activated Partial Thromboplast Time 20.2 SECONDS Partial Thromboplastin Ratio 0.8 Sodium Level 140 mmol/L Potassium Level 4.2 mmol/L Chloride Level 101 mmol/L Carbon Dioxide Level 29 mmol/L Anion Gap 10.0 mmol/L Blood Urea Nitrogen 17 mg/dl Creatinine 1.10 mg/dl Est Creatinine Clear Calc Drug Dose 42.1 ml/min Estimated GFR () 56.5 Estimated GFR (Non- 48.7 BUN/Creatinine Ratio 15.8 Random Glucose 135 mg/dl Calcium Level 8.8 mg/dl Magnesium Level 2.1 mg/dl Total Bilirubin 0.2 mg/dl Direct Bilirubin < 0.1 mg/dl Aspartate Amino Transf (AST/SGOT) 26 U/L Alanine Aminotransferase (ALT/SGPT) 29 U/L Alkaline Phosphatase 43 U/L Troponin I < 0.015 ng/ml Pro-B-Type Natriuretic Peptide 572 pg/ml Total Protein 6.5 gm/dl Albumin 3.3 gm/dl Lipase 228 U/L Bedside Blood Gas pH (LAB) 7.34 Bedside Blood Gas pCO2 (LAB) 52 mmHg Bedside Blood Gas pO2 (LAB) 63 mmHg Bedside Blood Gas HCO3 (LAB) 28 meq/L Bedside Blood Gas Total CO2 30 mEq/l Bedside Blood Gas Base Excess (LAB) 2.0 meq/L Bedside Blood Gas O2 Saturation 90.0 % Bedside Glucose 120 mg/dl Test 02/28/16 12:08 Bedside Glucose 114 mg/dl
--- NOTE | 2016-02-28 13:13 | SURGICAL CONSULTATION ---
DATE OF CONSULTATION: 02/28/2016 DATE OF CONSULTATION: 02/28/2016. REASON FOR CONSULTATION: Evaluate for possible thoracoscopic surgery. HISTORY OF PRESENT ILLNESS: Merlyn Faustin is a delightful 75-year-old who is originally from [place], [place]. She has a history of cigarette smoking but quit many years ago. She presented with increasing shortness of breath and was admitted through the Emergency Department 02/21/2016. On 02/23/2016 she underwent a right thoracentesis and 850 mL of fluid was drained, which was sent for cytology. This was consistent with metastatic small cell carcinoma. The patient felt better after the fluid has been drained off on the and presented back on the with increasing shortness of breath. A CT scan was performed which showed no evidence of pulmonary emboli but she did have a significant amount of fluid which appears to be fairly homogenous with total collapse of her right lower lobe along with her right middle lobe. She also has significant adenopathy in the hilum and mediastinum. She is fluid reaccumulated fairly quickly. I was asked to evaluate her to address this pleural fluid. The patient has been getting short of breath over the last several months, but this has worsened. She has not lost much in the way of weight. We discussed this in her findings in detail. PAST MEDICAL HISTORY: 1. Small cell lung carcinoma with malignant right pleural effusion. 2. History of cigarette smoking but quit 30 years ago. 3. Diabetes mellitus. 4. Hypertension. 5. Chronic renal insufficiency. 6. Chronic obstructive pulmonary disease. 7. Carotid artery disease in the past. 8. Hypothyroidism. 9. Mild pulmonary hypertension. PAST SURGICAL HISTORY: 1. 5, para 5, abortus 0. 2. Carotid endarterectomy. 3. Hysterectomy for dysfunctional uterine bleeding. MEDICATIONS (AT HOME): 1. Amlodipine. 2. Aspirin. 3. Coreg. 4. Advair Diskus. 5. Fluticasone. 6. Glipizide. 7. Hydralazine. 8. Combivent inhaler. 9. Synthroid. 10. Loratadine. 11. Oxygen 2 liters at night. 12. Rosuvastatin calcium. 13. Sertraline. ALLERGIES: No known drug allergies. SOCIAL HISTORY: The patient is originally from [place], [place]. Her is from [facility] and met her in the and she moved up to this area many years ago. She is . Her ironically enough from lung cancer 13 years ago. The patient no longer smokes, having quit many years ago but has about a [id number] history. She is independent of her activities of daily living and lives alone "although my children live nearby." She has several grandchildren and great-grandchildren, has apparently a good support system. FAMILY MEDICAL HISTORY: One of her children took their own life in their early 30s. She has another son who "drank himself to ." The other 3 children are relatively healthy. There is a history of diabetes, coronary artery disease and hypertension in her family. Her mother lived to be quite elderly actually. Her mother with coronary artery disease and her sister has diabetes. REVIEW OF SYSTEMS: The patient states she has lost "some weight". In looking back at her weight over the last 2 years ago she has indeed lost some weight. She weighed 96 kilograms in August 2014 and currently weighs 82 kilograms which is a loss of over 25 pounds. She states she does have shortness of breath and dyspnea on exertion but denies pain. She has had no GI or symptoms. She has had no skin breakdown. She has had no swelling of her legs. She denies any neurologic symptoms. No visual or auditory symptoms. PHYSICAL EXAMINATION: GENERAL: This is a very nice 5 foot 1 inch, 179 pound female who is awake, alert and oriented. HEAD, EYES, EARS, NOSE, AND THROAT: Her extraocular movements are intact. Pupils are equal, round and reactive. Her sclerae are anicteric. She has no nasolabial flattening. Tongue is midline. She has her own teeth in the mandible, but she has a denture plate in the top. She has no leukoplakia. NECK: Supple. I detect no supraclavicular or cervical lymphadenopathy, neck vein distention or thyromegaly. She has no axillary adenopathy. She has markedly decreased breath sounds on the right, but also has decreased breath sounds in the left base. She has no wheezing but some rhonchi. She has a regular rate and rhythm of her heart. ABDOMEN: Obese, soft, nontender. EXTREMITIES: She has no peripheral edema. She has good peripheral pulses. She has no joint effusions. NEUROLOGIC: She is awake, alert and oriented, has no focal deficits. ASSESSMENT AND PLAN: Malignant right pleural effusion. In closely reviewing the CT scan, I really do not see any narrowing of the airways. I believe a case could be made for either placing a PleurX catheter or doing a thoracoscopy. The patient does not wish to have a PleurX catheter. She does not want "anyone coming into my home." She is quite adamant about this. As we could perform either I will go ahead and take her to the operating room and do a thoracoscopy with a possible decortication, although it appears to me that her lung will expand. We will also do a talc pleurodesis.
--- NOTE | 2016-02-28 14:16 | ECHOCARDIOGRAM REPORT ---
*NOTICE TO RECEIVING CONSTITUTION PARTY AGENCY This information is strictly Confidential and protected under [place] law. [place] law prohibits you from making any further disclosure of this information unless further disclosure is expressly permitted by the written consent of the person to whom it pertains or is authorized by law. A general authorization for the release of medical or other information is not sufficient for this purpose. Hospital accepts no responsibility if the information is made available to any other person, INCLUDING THE PATIENT. Interpretation Summary * Name: VITA BARCLAY Study Date: 02/28/2016 10:59 AM BP: 150/56 mmHg * Patient Location: [facility]\S\[id number] HR: 64 * : 1940 (M/d/yyyy) Gender: Female Height: 61 in * Age: 75 yrs Ethnicity: CA Weight: 178 lb * Ordering Physician: Royal Lujan * Performed By: Maylin Loomis * * Reason For Study: PERICARDIAL DISEASE * BSA: 1.8 m2 * -- Conclusions -- * The left ventricle is normal in size. * There is mild concentric left ventricular hypertrophy. * The left ventricular wall motion is normal. * Left ventricular systolic function is normal. * Ejection Fraction = 55-60%. * The left atrium is moderately dilated. * Aortic valve sclerosis mild, without significant aortic valvular stenosis. * Mild aortic regurgitation. * There is mild mitral regurgitation. * There is mild to moderate tricuspid regurgitation. * Right ventricular systolic pressure is elevated at 40-50mmHg. * There is no pericardial effusion. Procedure Details * A complete two-dimensional transthoracic echocardiogram was performed (2D, M-mode, Doppler and color flow Doppler). Left Ventricle * The left ventricle is normal in size. * There is mild concentric left ventricular hypertrophy. * Ejection Fraction = 55-60%. * Left ventricular systolic function is normal. * The left ventricular wall motion is normal. Right Ventricle * The right ventricle is normal in size and function. Atria * The left atrium is moderately dilated. * Right atrial size is normal. * No ASD detected; PFO is not assessed. Mitral Valve * The mitral valve anatomy is normal. * There is no mitral valve stenosis. * There is mild mitral regurgitation. Tricuspid Valve * The tricuspid valve anatomy is normal. * There is no tricuspid stenosis. * There is mild to moderate tricuspid regurgitation. * Right ventricular systolic pressure is elevated at 40-50mmHg. Aortic Valve * The aortic valve is trileaflet. * Aortic valve sclerosis mild, without significant aortic valvular stenosis. * Mild aortic regurgitation. Pulmonic Valve * The pulmonic valve is not well visualized. Great Vessels * The aortic root is normal size. Pericardium/Pleural * There is no pericardial effusion. Great Vessels * Normal inferior vena cava diameter and respiratory variation suggests normal central venous pressure. Left Ventricular Diastolic Function * Grade I diastolic dysfunction, (abnormal relaxation pattern). MMode 2D Measurements and Calculations IVSd 1.1 cm IVSs 1.5 cm LVIDd 4.9 cm LVIDs 3.3 cm LVPWd 1.2 cm LVPWs 1.7 cm IVS/LVPW 0.92 FS 31.4 % EDV(Teich) 110.3 ml ESV(Teich) 45.1 ml EF(Teich) 59.1 % EDV(cubed) 114.3 ml ESV(cubed) 36.9 ml EF(cubed) 67.7 % % IVS thick 35.1 % % LVPW thick 46.3 % LV mass(C)d 208.4 grams LV mass(C)dI 115.9 grams/m\S\2 LV mass(C)s 204.0 grams LV mass(C)sI 113.5 grams/m\S\2 SV(Teich) 65.2 ml SI(Teich) 36.3 ml/m\S\2 SV(cubed) 77.4 ml SI(cubed) 43.1 ml/m\S\2 ACS 1.2 cm LA dimension 5.4 cm asc Aorta Diam 2.6 cm LVOT diam 1.8 cm LVOT area 2.6 cm\S\2 LVAd ap4 34.4 cm\S\2 LVLd ap4 8.4 cm EDV(MOD-sp4) 116.4 ml EDV(sp4-el) 120.4 ml LVAs ap4 18.9 cm\S\2 LVLs ap4 6.3 cm ESV(MOD-sp4) 45.8 ml ESV(sp4-el) 47.9 ml EF(MOD-sp4) 60.7 % EF(sp4-el) 60.2 % LVAd ap2 31.2 cm\S\2 LVLd ap2 7.4 cm EDV(MOD-sp2) 104.5 ml EDV(sp2-el) 112.0 ml LVAs ap2 18.1 cm\S\2 LVLs ap2 6.6 cm ESV(MOD-sp2) 41.3 ml ESV(sp2-el) 42.3 ml EF(MOD-sp2) 60.5 % EF(sp2-el) 62.3 % LVLd %diff -13.24 % EDV(MOD-bp) 115.1 ml LVLs %diff 4.3 % ESV(MOD-bp) 43.4 ml EF(MOD-bp) 62.3 % SV(MOD-sp4) 70.6 ml SI(MOD-sp4) 39.3 ml/m\S\2 SV(MOD-sp2) 63.2 ml SI(MOD-sp2) 35.1 ml/m\S\2 SV(MOD-bp) 71.6 ml SI(MOD-bp) 39.9 ml/m\S\2 SV(sp4-el) 72.5 ml SI(sp4-el) 40.3 ml/m\S\2 SV(sp2-el) 69.7 ml SI(sp2-el) 38.8 ml/m\S\2 Doppler Measurements and Calculations MV E max linda 77.4 cm/sec MV A max linda 102.7 cm/sec MV E/A 0.75 MV dec time 0.31 sec Ao V2 max 130.1 cm/sec Ao max PG 6.8 mmHg Ao max PG (full) 1.5 mmHg RINA(V,A) 2.3 cm\S\2 RINA(V,D) 2.3 cm\S\2 AI max linda 430.7 cm/sec AI max PG 74.2 mmHg AI dec slope 221.8 cm/sec\S\2 AI P1/2t 568.8 msec LV V1 max PG 5.2 mmHg LV V1 mean PG 2.3 mmHg LV V1 max 114.4 cm/sec LV V1 mean 67.1 cm/sec LV V1 VTI 28.0 cm MR max linda 496.7 cm/sec MR max PG 98.7 mmHg SV(LVOT) 72.6 ml SI(LVOT) 40.4 ml/m\S\2 PA V2 max 74.4 cm/sec PA max PG 2.2 mmHg PI end-d linda 188.3 cm/sec TR max linda 330.7 cm/sec
--- NOTE | 2016-02-28 17:51 | Progress Note ---
Medicine Progress Note Date & Time of Visit: Feb 28, 2016 at 17:17. Subjective Pt was seen and examined sitting in chair with no distress Pt said that she is still having SOB on exertion she denies any chest pain, fever, palpitation and SOB Objective Last 8 Hrs Date Time Temp Pulse Resp B/P Pulse Ox O2 Delivery O2 Flow Rate FiO2 02/28/16 15:34 Nasal Cannula 4.0 02/28/16 15:20 36.7 57 20 128/75 96 02/28/16 14:15 36.9 56 18 149/76 96 Nasal Cannula 4.0 02/28/16 12:19 Nasal Cannula 2.0 02/28/16 11:47 36.4 59 20 138/69 90 Physical Exam: General- No acute respiratory distress Head- atraumatic Eyes- PERRL, EOMI ENT- oropharynx clear Neck- supple, no JVD Lungs- Decrease BS at the right side Heart- regular rhythm, No murmur Abdomen- normal bowel sounds, soft Extremities- no calf tenderness Neuro- alert, oriented, PERRL, EOMI Skin- warm & dry Laboratory Results: Last 24 Hours Test 02/27/16 20:39 02/28/16 06:36 02/28/16 07:56 02/28/16 12:08 Bedside Blood Gas pH (LAB) 7.34 Bedside Blood Gas pCO2 (LAB) 52 mmHg Bedside Blood Gas pO2 (LAB) 63 mmHg Bedside Blood Gas HCO3 (LAB) 28 meq/L Bedside Blood Gas Total CO2 30 mEq/l Bedside Blood Gas Base Excess (LAB) 2.0 meq/L Bedside Blood Gas O2 Saturation 90.0 % White Blood Count 7.28 K/uL Red Blood Count 3.62 M/uL Hemoglobin 11.1 g/dL Hematocrit 35.7 % Mean Corpuscular Volume 98.6 fL Mean Corpuscular Hemoglobin 30.7 pg Mean Corpuscular Hemoglobin Concent 31.1 g/dl Platelet Count 157 K/uL Mean Platelet Volume 9.1 fL Neutrophils (%) (Auto) 68.4 % Lymphocytes (%) (Auto) 17.2 % Monocytes (%) (Auto) 11.8 % Eosinophils (%) (Auto) 1.9 % Basophils (%) (Auto) 0.4 % Neutrophils # (Auto) 4.98 K/uL Lymphocytes # (Auto) 1.25 K/uL Monocytes # (Auto) 0.86 K/uL Eosinophils # (Auto) 0.14 K/uL Basophils # (Auto) 0.03 K/uL RDW Standard Deviation 50.3 fL RDW Coefficient of Variation 13.8 % Immature Granulocyte % (Auto) 0.3 % Immature Granulocyte # (Auto) 0.02 K/uL Bedside Glucose 120 mg/dl 114 mg/dl Test 02/28/16 14:36 Uric Acid 5.4 mg/dl Lactate Dehydrogenase 182 U/L Assessment & Plan Acute on chronic hypoxemic respiratory failure Possible secondary to right pleural effusion CT chest showed moderate right pleural effusion with associated right middle lobe and lower lobe atelectasis Persistent right hilar and mediastinal mass/adenopathy Continue oxygen supplement Thoracic surgery consult, planning for thoracoscopy with a possible decortication Continue respiratory treatment Pulmonary Dr. Hay on board Small Cell Lung Cancer Stage IV Oncology Dr. Ortega consulted Recommended palliative treatment -MRI of the brain with and without intravenous contrast. -Bone scan. -Dr. Ortega will plan to start chemo as an outpatient -Chemo combination possible with carboplatin and etoposide -No Radiation unless MRI shows met to the brain Malignant Pleural Effusion secondary to small cell lung ca planning for thoracoscopy with a possible decortication with Dr. Butts Right Bundle Branch block on EKG with T wave abnormal Denies any chest pain Will consider cardio consult to r/o any ischemia continue statin, asa, and BB ECHO done showed: The left ventricle is normal in size. * There is mild concentric left ventricular hypertrophy. * The left ventricular wall motion is normal. * Left ventricular systolic function is normal. * Ejection Fraction = 55-60%. * The left atrium is moderately dilated. * Aortic valve sclerosis mild, without significant aortic valvular stenosis. * Mild aortic regurgitation. * There is mild mitral regurgitation. * There is mild to moderate tricuspid regurgitation. * Right ventricular systolic pressure is elevated at 40-50mmHg. * There is no pericardial effusion. COPD Continue advair, Duoneb and oxygen supplement Hypothyroidism Continue levothyroxine HTN On amlodipine, carvedilol Stable DVT px on Lovenox subq CODE STATUS FULL CODE Consultants: Thoracic surgery Oncology Pulmonary Current Inpatient Medications: Current Inpatient Medications Medications (Trade) Dose Ordered Sig/Gilbert Route Start Time Stop Time Status Last Admin Dose Admin Ioversol (Optiray 320) 125 ml UD PRN IV 02/27/16 16:15 03/02/16 16:14 Albuterol/ Ipratropium (Duoneb) 3 ml Q2H PRN INH 02/27/16 19:45 03/28/16 19:44 Enoxaparin Sodium (Lovenox Inj) 40 mg Q24H SC 02/27/16 22:00 03/28/16 21:59 02/27/16 22:02 40 MG Acetaminophen (Tylenol Tab) 650 mg Q4H PRN PO 02/27/16 21:15 03/28/16 21:14 02/27/16 22:07 650 MG Amlodipine Besylate (Norvasc Tab) 2.5 mg QAM PO 02/28/16 09:00 03/29/16 08:59 02/28/16 08:05 2.5 MG Aspirin (Ecotrin Tab) 81 mg DAILY PO 02/28/16 09:00 03/29/16 08:59 02/28/16 08:05 81 MG Carvedilol (Coreg Tab) 50 mg BID PO 02/28/16 09:00 03/29/16 08:59 02/28/16 08:05 50 MG Salmeterol Xinafoate/ Fluticasone (Advair Diskus 250/50 Inh) 1 puff BID INH 02/28/16 09:00 03/29/16 08:59 02/28/16 08:03 1 PUFF Fluticasone Propionate (Flonase Nasal [place]) DAILY LATRICE 02/28/16 09:00 03/29/16 08:59 02/28/16 08:03 2 SPRAYS Hydralazine HCl (Apresoline Tab) 75 mg TID PO 02/28/16 09:00 03/29/16 08:59 02/28/16 14:19 75 MG Levothyroxine Sodium (Synthroid Tab) 137 mcg DAILYBB PO 02/28/16 06:30 03/29/16 06:29 02/28/16 06:00 137 MCG Loratadine (Claritin Tab) 10 mg DAILY PO 02/28/16 09:00 03/29/16 08:59 02/28/16 08:05 10 MG Sertraline HCl (Zoloft Tab) 25 mg DAILY PO 02/28/16 09:00 03/29/16 08:59 02/28/16 08:04 25 MG Rosuvastatin Calcium (Crestor Tab) 40 mg QAM PO 02/28/16 09:00 03/29/16 08:59 02/28/16 08:04 40 MG Insulin Aspart (novoLOG ASPART) SLIDING SCALE If C... ACHS SC 02/28/16 06:30 03/29/16 06:29 Glucose (Glucose 40% Gel) 15-30 GRAMS 15 GRAMS... UD PRN PO 02/27/16 23:45 03/28/16 23:44 Glucose (Glucose Chew Tab) 4-8 Tablets 4 Tabl... UD PRN PO 02/27/16 23:45 03/28/16 23:44 Dextrose (Dextrose 50% 50ML Syringe) 25-50ML OF 50% DW IV FOR... UD PRN IV 02/27/16 23:45 03/28/16 23:44 Glucagon (Glucagon Inj) 1 mg UD PRN SQ 02/27/16 23:45 03/28/16 23:44 Hydromorphone HCl (Dilaudid Inj) 0.5 mg Q3H PRN IV 02/27/16 23:45 03/12/16 23:44 Tramadol HCl (Ultram Tab) 25 mg Q6H PRN PO 02/27/16 23:45 03/28/16 23:44 Ondansetron HCl (Zofran Inj) 4 mg Q6H PRN IV 02/27/16 23:45 03/28/16 23:44 Lidocaine HCl (Xylocaine 1% Inj (Local)) 20 ml TODAY@1000 INFIL 02/28/16 10:00 02/28/16 23:59
[2016-02-28] MEDS ORDERED: GADAVIST IV PRN (18:15)
--- NOTE | 2016-02-28 18:28 | DIAGNOSTIC IMAGING REPORT ---
MRI OF THE BRAIN WITHOUT AND WITH IV CONTRAST CLINICAL HISTORY: Small cell lung cancer. Evaluate for metastatic disease. COMPARISON STUDY: Head CT September 16, 2011. TECHNIQUE: Utilizing a 1.5 Elli magnet and dedicated coil, multiplanar, multiecho imaging of the brain was performed pre and postcontrast administration. IV administration of 8 mL of Gadavist contrast was uneventful. FINDINGS: This study is mildly compromised by motion artifact. No acute intracranial hemorrhage, midline shift or mass effect is present. Ventricular system is unremarkable. The basilar cisterns are patent. There are no extra-axial fluid collections. Note is made of an enhancing extra-axial left parafalcine mass medial to the left frontoparietal region shown on axial image 19 of 22. This lesion measures 1.5 x 0.4 x 1.4 cm and is suggestive of a small meningioma. No additional intracranial masses are present. There are are no calvarial lesions. Sinuses and orbits are unremarkable. There is a suspected small old infarct within the right parietal lobe. White matter T2 hypertense foci suggest small vessel disease. IMPRESSION: 1. No evidence of metastatic disease. 2. No acute intracranial findings. 3. 1.5 x 0.4 x 1.4 cm left parafalcine lesion suggestive of a small meningioma. Electronically signed by: Joon Koehler M.D. 02/28/2016 6:26 PM Dictated Date/Time: 02/28/2016 6:16 PM
[2016-02-28] MEDS: ENOXAPARIN 40 MG/0.4 ML SYR SC SCH (21:02)
[2016-02-29] VITALS (8 sets, daily range): BP systolic 92–154; BP diastolic 53–79; PULSE 58–90; TEMP 36.5–37.3; O2SAT 90–95
[2016-02-29] MEDS ORDERED: SIMETHICONE 80 MG CHEW PO ONE (00:15)
[2016-02-29] MEDS ORDERED: LORAZEPAM 0.5 MG TAB PO ONE (00:15)
[2016-02-29] MEDS: LEVOTHYROXINE 137 MCG TAB PO SCH (06:10)
[2016-02-29] MEDS: INSULIN ASPART 100 UNITS/ML 3 ML PEN SC SCH ×4 (06:30→20:51)
[2016-02-29 06:56] LABS: HEMATOCRIT 36.5 % (37-47); MEAN CELL VOLUME 98.6 fL (80-100); MEAN CORPUSCULAR HEMOGLOBIN 30.5 pg (25-34); MEAN PLATELET VOLUME 8.9 fL (7.4-10.4); PLATELET COUNT 170 K/uL (130-400); WHITE BLOOD COUNT 7.42 K/uL (4.8-10.8)
[2016-02-29 07:28] LABS: CALCIUM 8.8 mg/dl (8.5-10.1); CREATININE 1.2 mg/dl (0.60-1.20); POTASSIUM 4.2 mmol/L (3.5-5.1)
--- NOTE | 2016-02-29 07:41 | PULMONARY PROGRESS NOTE ---
DATE: 02/29/2016 HISTORY OF PRESENT ILLNESS: The patient is comfortable this morning sitting out of bed in a chair. She still has dyspnea with exertion. She states it may be a bit worse today. She states she slept fairly well last night. According to the nurses' notes at 8:00 p.m. last night, she had dyspnea with exertion and some mild shortness of breath at rest. This is related to an enlarging right pleural effusion related to small cell carcinoma. She denies cough, nausea, vomiting. PHYSICAL EXAMINATION: VITAL SIGNS: Stable. She is afebrile. Blood pressure 154/79, oxygen saturation 96% on 2 liters, 95% on 4 liters now. I\T\O 595 in and 1300 out. Weight 81.1 kilograms yesterday. Nurses' notes and medications were reviewed. HEENT: Unremarkable. No adenopathy is noted anywhere. HEART: Regular rate and rhythm, 1/6 systolic murmur heard at the apex. LUNGS: Reveal decreased breath sounds over the right hemithorax. ABDOMEN: Soft, nontender. She has no cyanosis, clubbing or edema. Chest x-ray revealed an increasing right pleural effusion. Brain MRI revealed no evidence of any metastatic disease. A small meningioma is suggested in the left frontoparietal region. A small infarct in the right parietal lobe is noted as well and changes consistent with small vessel disease are noted. CAT scan of the abdomen and pelvis revealed pathologic mediastinal adenopathy with a right pleural effusion, atelectasis or consolidation in the right middle lobe and right lower lobe with a small pericardial effusion. A 9 mm right renal cyst is noted with no significant abdominal adenopathy noted. The uterus is absent. Coronary artery calcifications are noted as well. CBC and chemistry profile are pending. Sugars in the 122-167 range. LDH was 182. Uric acid 5.4. IMPRESSION: 1. Metastatic small cell carcinoma of the right lung in the right pleural space. 2. Meningioma. 3. Small cerebral infarction, old. 4. Large right pleural effusion. PLAN: 1. Continue with her present medications. 2. Evaluation with Dr. Butts. He has seen the patient yesterday at my request and will consider a VATS procedure at the patient's request. The echocardiogram does show evidence of pulmonary hypertension, perhaps that will improve with removal of the right-sided pleural effusion. The left ventricular ejection fraction, otherwise looked good. She will be followed by Dr. Hancock starting tomorrow. MEREDITH
[2016-02-29] MEDS: FLUTICASONE/SALMETEROL 250/50 (ADVAIR) 14 PUFF/1 INHALER INH SCH ×2 (08:50→20:50)
[2016-02-29] MEDS: LORATADINE 10 MG TAB PO SCH (08:51)
[2016-02-29] MEDS: FLUTICASONE PROPIONATE NA SPR 16 GM BTL NAE SCH (08:51)
[2016-02-29] MEDS: CARVEDILOL 25 MG TAB PO SCH ×2 (08:52→20:51)
[2016-02-29] MEDS: ASPIRIN 81 MG ECTAB PO SCH (08:52)
[2016-02-29] MEDS: AMLODIPINE BESYLATE 5 MG TAB PO SCH (08:52)
[2016-02-29] MEDS: SERTRALINE HCL 50 MG TAB PO SCH (08:53)
[2016-02-29] MEDS: ROSUVASTATIN CALCIUM 20 MG TAB PO SCH (08:54)
--- NOTE | 2016-02-29 13:23 | SURGERY PROGRESS NOTE ---
DATE: 02/29/2016 HISTORY OF PRESENT ILLNESS: Ms. Faustin was seen today on 02/29/2016. I am going to keep her n.p.o. and hopefully we will be able to get her on the schedule for tomorrow, although this could be difficult. I have discussed this and told her it maybe Tuesday, Tuesday depending on the schedule. She understands. She does look better to me today. She is on 4 liters 95% saturation. We did discuss the PleurX catheter again and she does not want the PleurX catheter. She would like to have this drained and we will set this up and do this on this week.
--- NOTE | 2016-02-29 16:49 | Progress Note ---
Medicine Progress Note Date & Time of Visit: Feb 29, 2016 at 16:42. Subjective Pt was seen and examined Sitting comfortable with no distress Pt said that she feels fine she said that her breathing is much better today she denies any chest pain, palpitation, dizziness Objective Last 8 Hrs Date Time Temp Pulse Resp B/P Pulse Ox O2 Delivery O2 Flow Rate FiO2 02/29/16 15:10 36.7 59 16 124/67 91 Nasal Cannula 4.0 02/29/16 14:29 115/66 02/29/16 12:48 95 Nasal Cannula 4.0 02/29/16 12:00 Nasal Cannula 4.0 02/29/16 11:38 37.3 90 16 92/53 90 Nasal Cannula 4.0 Physical Exam: General- No acute respiratory distress Head- atraumatic Eyes- PERRL, EOMI ENT- oropharynx clear Neck- supple, no JVD Lungs- Decrease BS at the right side Heart- regular rhythm, No murmur Abdomen- normal bowel sounds, soft Extremities- no calf tenderness Neuro- alert, oriented, PERRL, EOMI Skin- warm & dry Laboratory Results: Last 24 Hours Test 02/28/16 17:39 02/28/16 20:05 02/29/16 06:36 02/29/16 07:07 Bedside Glucose 167 mg/dl 122 mg/dl 119 mg/dl White Blood Count 7.42 K/uL Red Blood Count 3.70 M/uL Hemoglobin 11.3 g/dL Hematocrit 36.5 % Mean Corpuscular Volume 98.6 fL Mean Corpuscular Hemoglobin 30.5 pg Mean Corpuscular Hemoglobin Concent 31.0 g/dl RDW Standard Deviation 49.1 fL RDW Coefficient of Variation 13.7 % Platelet Count 170 K/uL Mean Platelet Volume 8.9 fL Sodium Level 139 mmol/L Potassium Level 4.2 mmol/L Chloride Level 99 mmol/L Carbon Dioxide Level 30 mmol/L Anion Gap 10.0 mmol/L Blood Urea Nitrogen 13 mg/dl Creatinine 1.20 mg/dl Est Creatinine Clear Calc Drug Dose 38.5 ml/min Estimated GFR () 50.8 Estimated GFR (Non- 43.9 BUN/Creatinine Ratio 11.0 Random Glucose 119 mg/dl Calcium Level 8.8 mg/dl Test 02/29/16 11:21 1/22/17 16:23 Bedside Glucose 148 mg/dl 117 mg/dl Assessment & Plan Acute on chronic hypoxemic respiratory failure Possible secondary to right pleural effusion CT chest showed moderate right pleural effusion with associated right middle lobe and lower lobe atelectasis Persistent right hilar and mediastinal mass/adenopathy Continue oxygen supplement Thoracic surgery consult, planning for thoracoscopy with a possible decortication Continue respiratory treatment Pulmonary Dr. Hay on board NPO after midnight for thoracoscopy tomorrow Small Cell Lung Cancer Stage IV Oncology Dr. Ortega consulted Recommended palliative treatment t. -Bone scan. -Dr. Ortega will plan to start chemo as an outpatient -Chemo combination possible with carboplatin and etoposide -No Radiation unless MRI shows met to the brain -MRI showed No evidence of metastatic disease. 1.5 x 0.4 x 1.4 cm left parafalcine lesion suggestive of a small meningioma. Malignant Pleural Effusion secondary to small cell lung ca planning for thoracoscopy with a possible decortication with Dr. Butts tomorrow NPO after midnight Right Bundle Branch block on EKG with T wave abnormal Denies any chest pain Will consider cardio consult to r/o any ischemia continue statin, asa, and BB ECHO done showed: The left ventricle is normal in size. * There is mild concentric left ventricular hypertrophy. * The left ventricular wall motion is normal. * Left ventricular systolic function is normal. * Ejection Fraction = 55-60%. * The left atrium is moderately dilated. * Aortic valve sclerosis mild, without significant aortic valvular stenosis. * Mild aortic regurgitation. * There is mild mitral regurgitation. * There is mild to moderate tricuspid regurgitation. * Right ventricular systolic pressure is elevated at 40-50mmHg. * There is no pericardial effusion. COPD Continue advair, Duoneb and oxygen supplement Hypothyroidism Continue levothyroxine HTN On amlodipine, carvedilol Stable DVT px on Lovenox subq CODE STATUS FULL CODE Consultants: Thoracic surgery Oncology Pulmonary Current Inpatient Medications: Current Inpatient Medications Medications (Trade) Dose Ordered Sig/Gilbert Route Start Time Stop Time Status Last Admin Dose Admin Ioversol (Optiray 320) 125 ml UD PRN IV 02/27/16 16:15 03/02/16 16:14 Albuterol/ Ipratropium (Duoneb) 3 ml Q2H PRN INH 02/27/16 19:45 03/28/16 19:44 Enoxaparin Sodium (Lovenox Inj) 40 mg Q24H SC 02/27/16 22:00 03/28/16 21:59 02/28/16 21:02 40 MG Acetaminophen (Tylenol Tab) 650 mg Q4H PRN PO 02/27/16 21:15 03/28/16 21:14 02/27/16 22:07 650 MG Amlodipine Besylate (Norvasc Tab) 2.5 mg QAM PO 02/28/16 09:00 03/29/16 08:59 02/29/16 08:52 2.5 MG Aspirin (Ecotrin Tab) 81 mg DAILY PO 02/28/16 09:00 03/29/16 08:59 02/29/16 08:52 81 MG Carvedilol (Coreg Tab) 50 mg BID PO 02/28/16 09:00 03/29/16 08:59 02/29/16 08:52 50 MG Salmeterol Xinafoate/ Fluticasone (Advair Diskus 250/50 Inh) 1 puff BID INH 02/28/16 09:00 03/29/16 08:59 02/29/16 08:50 1 PUFF Fluticasone Propionate (Flonase Nasal [place]) DAILY LATRICE 02/28/16 09:00 03/29/16 08:59 02/29/16 08:51 1 SPRAYS Hydralazine HCl (Apresoline Tab) 75 mg TID PO 02/28/16 09:00 03/29/16 08:59 02/29/16 14:28 75 MG Levothyroxine Sodium (Synthroid Tab) 137 mcg DAILYBB PO 02/28/16 06:30 03/29/16 06:29 02/29/16 06:10 137 MCG Loratadine (Claritin Tab) 10 mg DAILY PO 02/28/16 09:00 03/29/16 08:59 02/29/16 08:51 10 MG Sertraline HCl (Zoloft Tab) 25 mg DAILY PO 02/28/16 09:00 03/29/16 08:59 02/29/16 08:53 25 MG Rosuvastatin Calcium (Crestor Tab) 40 mg QAM PO 02/28/16 09:00 03/29/16 08:59 02/29/16 08:54 40 MG Insulin Aspart (novoLOG ASPART) SLIDING SCALE If C... ACHS SC 02/28/16 06:30 03/29/16 06:29 Glucose (Glucose 40% Gel) 15-30 GRAMS 15 GRAMS... UD PRN PO 02/27/16 23:45 03/28/16 23:44 Glucose (Glucose Chew Tab) 4-8 Tablets 4 Tabl... UD PRN PO 02/27/16 23:45 03/28/16 23:44 Dextrose (Dextrose 50% 50ML Syringe) 25-50ML OF 50% DW IV FOR... UD PRN IV 02/27/16 23:45 03/28/16 23:44 Glucagon (Glucagon Inj) 1 mg UD PRN SQ 02/27/16 23:45 03/28/16 23:44 Hydromorphone HCl (Dilaudid Inj) 0.5 mg Q3H PRN IV 02/27/16 23:45 03/12/16 23:44 Tramadol HCl (Ultram Tab) 25 mg Q6H PRN PO 02/27/16 23:45 03/28/16 23:44 Ondansetron HCl (Zofran Inj) 4 mg Q6H PRN IV 02/27/16 23:45 03/28/16 23:44 Gadobutrol (Gadavist) 8 mmol UD PRN IV 02/28/16 18:15 03/03/16 18:14
[2016-02-29] MEDS: DOCUSATE SODIUM 100 MG CAP PO PRN (20:50)
[2016-02-29] MEDS: ENOXAPARIN 40 MG/0.4 ML SYR SC SCH (20:52)
[2016-03-01] VITALS (8 sets, daily range): BP systolic 112–134; BP diastolic 63–72; PULSE 59–68; TEMP 36.7–37; O2SAT 92–95
[2016-03-01] MEDS: LEVOTHYROXINE 137 MCG TAB PO SCH (05:56)
[2016-03-01 07:29] LABS: HEMATOCRIT 36.4 % (37-47); MEAN CELL VOLUME 98.9 fL (80-100); MEAN CORPUSCULAR HEMOGLOBIN 31.3 pg (25-34); MEAN CORPUSCULAR HGB CONC 31.6 g/dl (32-36); PLATELET COUNT 173 K/uL (130-400); RED BLOOD COUNT 3.68 M/uL (4.2-5.4); WHITE BLOOD COUNT 7.67 K/uL (4.8-10.8)
[2016-03-01 07:55] LABS: BUN/CREATININE RATIO 14.4 (10-20); CALCIUM 8.8 mg/dl (8.5-10.1); CREATININE 1.1 mg/dl (0.60-1.20); POTASSIUM 4.1 mmol/L (3.5-5.1)
[2016-03-01] MEDS: LORATADINE 10 MG TAB PO SCH (07:55)
[2016-03-01] MEDS: INSULIN ASPART 100 UNITS/ML 3 ML PEN SC SCH ×5 (07:55→21:00)
[2016-03-01] MEDS: AMLODIPINE BESYLATE 5 MG TAB PO SCH (07:56)
[2016-03-01] MEDS: ROSUVASTATIN CALCIUM 20 MG TAB PO SCH (07:56)
[2016-03-01] MEDS: ASPIRIN 81 MG ECTAB PO SCH (07:56)
[2016-03-01] MEDS: CARVEDILOL 25 MG TAB PO SCH ×2 (07:56→19:58)
[2016-03-01] MEDS: SERTRALINE HCL 50 MG TAB PO SCH (07:57)
[2016-03-01] MEDS: FLUTICASONE PROPIONATE NA SPR 16 GM BTL NAE SCH (07:59)
[2016-03-01] MEDS: FLUTICASONE/SALMETEROL 250/50 (ADVAIR) 14 PUFF/1 INHALER INH SCH ×2 (07:59→19:58)
[2016-03-01] MEDS ORDERED: POLYETHYLENE (MIRALAX) 17 GM PACK PO ONE (10:45)
--- NOTE | 2016-03-01 10:55 | Pulmonology Progress Note ---
Pulmonary Progress Note Date of Service Mar 01, 2016. Attending Cable Subjective Feeling well/improved today. Ambulates to the restroom with some dyspnea. Denies any chest pain or increased dyspnea or cough. Complains of constipation since admission with abdominal fullness but no pain. Appetite in-tact. Sleeping well. Objective 75-yo female admitted 02/27/16 with recurrent right sided malignant effusion. PMHx includes: recent admission 02/21/16-02/23/16 with right pleural effusion s/p evacuation with cytology + metastatic small cell carcinoma with progressive mediastinal and hilar adenopathy on CT, O2-dependant COPD, hypothyroid, HTN, DM , pulmonary HTN, carotic stenosis, PVC. Patient admitted to [facility] 02/27/16 through the ER with symptoms of progressive dyspnea. CTA notable for recurrence of malignant right sided pleural effusion which had been drained 1-week prior with RML and RLL atelectasis and persistent mediastinal and hilar adenopathy. Echocardiogram 02/28/16: EF 55-60%, grade I diastolic dysfunction, with mild MR/TR and RVS: 40-50mmHg. CT A/P and MRI brain not suggestive of malignancy. Pulmonary and surgery consulted in consideration of PleurX catheter placement vs VATS. Patient declined PleurX and is scheduled to proceed with VATS and talc pleurodesis 03/02/16. Today: - O2 94-55% on 3-4LPM via NC - Afebrile, HD stable - No BM - WBC: 7.67, Hgb/Hct: 11.5/36.4, Plts: 173 Physical Exam: Constitutional: Well developed elderly female sitting in chair at bedside. No acute distress Head: + facial symmetry Eyes: EOMi, PERRLA, no injection. Corrective lenses Mouth: Dentures in place. Moist mucous membranes. NO erythema or exudate Respiratory: Shallow non-labored respirations. No cough on exam. Absent BS right base and decreased right middle tup upper 2/3 lung vasquez. Left: no wheeze , rales or rhonchi CV: Regular rate and rhythm, II/ systolic murmur. Warm and perfused peripherally MSK/Extremities: Moving UE/LEs symmetrically. Non-pitting peripheral edema with varicosities. Neurologic: Alert, oriented to person and place. Cooperative and answering questions appropriately. Assessment & Plan 75-yo female with O2-dependent COPD and recurrent right sided pleural effusion: 1. COPD appears to be controlled on current Advair and Duo-nebs: continue at this time 2. Recurrent malignant [Small Cell]: VATS with talc pleurodesis scheduled for by Dr. Butts 3. Constipation: escalate regimen with laxative 1-dose today and will likely need post-op secondary to analgesia. Data Medications: Current Inpatient Medications Medications (Trade) Dose Ordered Sig/Gilbert Route Start Time Stop Time Status Last Admin Dose Admin Ioversol (Optiray 320) 125 ml UD PRN IV 02/27/16 16:15 03/02/16 16:14 Albuterol/ Ipratropium (Duoneb) 3 ml Q2H PRN INH 02/27/16 19:45 03/28/16 19:44 Enoxaparin Sodium (Lovenox Inj) 40 mg Q24H SC 02/27/16 22:00 03/28/16 21:59 02/29/16 20:52 40 MG Acetaminophen (Tylenol Tab) 650 mg Q4H PRN PO 02/27/16 21:15 03/28/16 21:14 02/27/16 22:07 650 MG Amlodipine Besylate (Norvasc Tab) 2.5 mg QAM PO 02/28/16 09:00 03/29/16 08:59 02/29/16 08:52 2.5 MG Aspirin (Ecotrin Tab) 81 mg DAILY PO 02/28/16 09:00 03/29/16 08:59 02/29/16 08:52 81 MG Carvedilol (Coreg Tab) 50 mg BID PO 02/28/16 09:00 03/29/16 08:59 02/29/16 20:51 50 MG Salmeterol Xinafoate/ Fluticasone (Advair Diskus 250/50 Inh) 1 puff BID INH 02/28/16 09:00 03/29/16 08:59 03/01/16 07:59 1 PUFF Fluticasone Propionate (Flonase Nasal [place]) DAILY LATRICE 02/28/16 09:00 03/29/16 08:59 03/01/16 07:59 1 SPRAYS Hydralazine HCl (Apresoline Tab) 75 mg TID PO 02/28/16 09:00 03/29/16 08:59 02/29/16 20:50 75 MG Levothyroxine Sodium (Synthroid Tab) 137 mcg DAILYBB PO 02/28/16 06:30 03/29/16 06:29 02/29/16 06:10 137 MCG Loratadine (Claritin Tab) 10 mg DAILY PO 02/28/16 09:00 03/29/16 08:59 02/29/16 08:51 10 MG Sertraline HCl (Zoloft Tab) 25 mg DAILY PO 02/28/16 09:00 03/29/16 08:59 02/29/16 08:53 25 MG Rosuvastatin Calcium (Crestor Tab) 40 mg QAM PO 02/28/16 09:00 03/29/16 08:59 02/29/16 08:54 40 MG Insulin Aspart (novoLOG ASPART) SLIDING SCALE If C... ACHS SC 02/28/16 06:30 03/29/16 06:29 Glucose (Glucose 40% Gel) 15-30 GRAMS 15 GRAMS... UD PRN PO 02/27/16 23:45 03/28/16 23:44 Glucose (Glucose Chew Tab) 4-8 Tablets 4 Tabl... UD PRN PO 02/27/16 23:45 03/28/16 23:44 Dextrose (Dextrose 50% 50ML Syringe) 25-50ML OF 50% DW IV FOR... UD PRN IV 02/27/16 23:45 03/28/16 23:44 Glucagon (Glucagon Inj) 1 mg UD PRN SQ 02/27/16 23:45 03/28/16 23:44 Hydromorphone HCl (Dilaudid Inj) 0.5 mg Q3H PRN IV 02/27/16 23:45 03/12/16 23:44 Tramadol HCl (Ultram Tab) 25 mg Q6H PRN PO 02/27/16 23:45 03/28/16 23:44 Ondansetron HCl (Zofran Inj) 4 mg Q6H PRN IV 02/27/16 23:45 03/28/16 23:44 Gadobutrol (Gadavist) 8 mmol UD PRN IV 02/28/16 18:15 03/03/16 18:14 Docusate Sodium (coLACE CAP) 100 mg BID PRN PO 02/29/16 19:00 03/30/16 18:59 02/29/16 20:50 100 MG Polyethylene (Miralax Powder Packet) 17 gm NOW ONCE PO 03/01/16 10:45 03/01/16 10:46 UNV I & O: 24-Hour Column 03/01/16 08:00 Intake Total 475 ml Output Total 1800 ml Balance -1325 ml Vital Signs: Date Time Temp Pulse Resp B/P Pulse Ox O2 Delivery O2 Flow Rate FiO2 03/01/16 08:30 Nasal Cannula 4.0 03/01/16 07:52 36.7 60 18 117/70 94 Nasal Cannula 3.0 03/01/16 04:16 Nasal Cannula 4.0 Humidified Oxygen 03/01/16 04:15 93 Nasal Cannula 4.0 Humidified Oxygen 03/01/16 03:17 37.0 68 18 130/63 93 Nasal Cannula 2.0 Humidified Oxygen 03/01/16 00:19 Nasal Cannula 4.0 02/29/16 23:57 36.5 61 18 127/67 95 Nasal Cannula 2.0 Humidified Oxygen 02/29/16 20:00 36.8 65 20 138/72 94 4.0 02/29/16 19:42 Nasal Cannula 4.0 02/29/16 16:00 Nasal Cannula 4.0 02/29/16 15:10 36.7 59 16 124/67 91 Nasal Cannula 4.0 02/29/16 14:29 115/66 02/29/16 12:48 95 Nasal Cannula 4.0 02/29/16 12:00 Nasal Cannula 4.0 02/29/16 11:38 37.3 90 16 92/53 90 Nasal Cannula 4.0 Laboratory Results: Last 24 Hours Test 02/29/16 11:21 02/29/16 16:23 02/29/16 20:15 03/01/16 06:48 Bedside Glucose 148 mg/dl 117 mg/dl 125 mg/dl White Blood Count 7.67 K/uL Red Blood Count 3.68 M/uL Hemoglobin 11.5 g/dL Hematocrit 36.4 % Mean Corpuscular Volume 98.9 fL Mean Corpuscular Hemoglobin 31.3 pg Mean Corpuscular Hemoglobin Concent 31.6 g/dl RDW Standard Deviation 49.3 fL RDW Coefficient of Variation 13.7 % Platelet Count 173 K/uL Mean Platelet Volume 9.0 fL Sodium Level 139 mmol/L Potassium Level 4.1 mmol/L Chloride Level 99 mmol/L Carbon Dioxide Level 30 mmol/L Anion Gap 10.0 mmol/L Blood Urea Nitrogen 16 mg/dl Creatinine 1.10 mg/dl Est Creatinine Clear Calc Drug Dose 41.9 ml/min Estimated GFR () 56.5 Estimated GFR (Non- 48.7 BUN/Creatinine Ratio 14.4 Random Glucose 123 mg/dl Calcium Level 8.8 mg/dl Test 03/01/16 07:38 Bedside Glucose 115 mg/dl
--- NOTE | 2016-03-01 12:36 | DIAGNOSTIC IMAGING REPORT ---
BONE SCAN WHOLE BODY CLINICAL HISTORY: Small cell lung cancer. Evaluate for skeletal metastases to COMPARISON STUDY: CT of the chest abdomen and pelvis February 27, 2016. TECHNIQUE: 27 mCi of technetium 99m MDP was injected IV at 8:24 AM on March 01, 2016. 3 hours following injection, whole body imaging was performed in the anterior posterior projections FINDINGS: Expected soft tissue and renal uptake is present. There is mild S-shaped curvature of the spine. No suspicious radiotracer uptake is identified. Mild uptake within the right aspect of the spine at the L5 level is likely degenerative. Mild uptake within the shoulders, sternoclavicular joints, right knee and feet is likely degenerative. IMPRESSION: No evidence of skeletal metastatic disease. Electronically signed by: Joon Koehler M.D. 03/01/2016 12:34 PM Dictated Date/Time: 03/01/2016 12:32 PM
--- NOTE | 2016-03-01 14:56 | Progress Note ---
Medicine Progress Note Date & Time of Visit: Mar 01, 2016 at 14:49. Subjective Pt was seen and examined Sitting in chair comfortable with no distress Pt said that she feels ok she denies any chest pain, palpitation, dizziness she said that she continue to have SOB on exertion Objective Last 8 Hrs Date Time Temp Pulse Resp B/P Pulse Ox O2 Delivery O2 Flow Rate FiO2 03/01/16 14:05 63 134/72 03/01/16 12:30 Nasal Cannula 4.0 03/01/16 12:12 36.9 67 16 119/64 92 Nasal Cannula 3.0 03/01/16 08:30 Nasal Cannula 4.0 03/01/16 07:52 36.7 60 18 117/70 94 Nasal Cannula 3.0 Physical Exam: General- No acute respiratory distress Head- atraumatic Eyes- PERRL, EOMI ENT- oropharynx clear Neck- supple, no JVD Lungs- Decrease BS at the right side Heart- regular rhythm, No murmur Abdomen- normal bowel sounds, soft Extremities- no calf tenderness Neuro- alert, oriented, PERRL, EOMI Skin- warm & dry Laboratory Results: Last 24 Hours Test 02/29/16 16:23 02/29/16 20:15 03/01/16 06:48 03/01/16 07:38 Bedside Glucose 117 mg/dl 125 mg/dl 115 mg/dl White Blood Count 7.67 K/uL Red Blood Count 3.68 M/uL Hemoglobin 11.5 g/dL Hematocrit 36.4 % Mean Corpuscular Volume 98.9 fL Mean Corpuscular Hemoglobin 31.3 pg Mean Corpuscular Hemoglobin Concent 31.6 g/dl RDW Standard Deviation 49.3 fL RDW Coefficient of Variation 13.7 % Platelet Count 173 K/uL Mean Platelet Volume 9.0 fL Sodium Level 139 mmol/L Potassium Level 4.1 mmol/L Chloride Level 99 mmol/L Carbon Dioxide Level 30 mmol/L Anion Gap 10.0 mmol/L Blood Urea Nitrogen 16 mg/dl Creatinine 1.10 mg/dl Est Creatinine Clear Calc Drug Dose 41.9 ml/min Estimated GFR () 56.5 Estimated GFR (Non- 48.7 BUN/Creatinine Ratio 14.4 Random Glucose 123 mg/dl Calcium Level 8.8 mg/dl Test 03/01/16 12:18 Bedside Glucose 153 mg/dl Assessment & Plan Acute on chronic hypoxemic respiratory failure Possible secondary to right pleural effusion CT chest showed moderate right pleural effusion with associated right middle lobe and lower lobe atelectasis Persistent right hilar and mediastinal mass/adenopathy Continue oxygen supplement Thoracic surgery consult, planning for thoracoscopy with a possible decortication Continue respiratory treatment Pulmonary Dr. Hay on board NPO after midnight for the VATS Small Cell Lung Cancer Stage IV Oncology Dr. Ortega consulted Recommended palliative treatment t. -Dr. Ortega will plan to start chemo as an outpatient -Chemo combination possible with carboplatin and etoposide -No Radiation unless MRI shows met to the brain -MRI showed No evidence of metastatic disease. 1.5 x 0.4 x 1.4 cm left parafalcine lesion suggestive of a small meningioma. - Bone scan done today showed No evidence of skeletal metastatic disease. 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 Butts Right Bundle Branch block on EKG with T wave abnormal Denies any chest pain Will consider cardio consult to r/o any ischemia continue statin, asa, and BB Stable ECHO done showed: The left ventricle is normal in size. * There is mild concentric left ventricular hypertrophy. * The left ventricular wall motion is normal. * Left ventricular systolic function is normal. * Ejection Fraction = 55-60%. * The left atrium is moderately dilated. * Aortic valve sclerosis mild, without significant aortic valvular stenosis. * Mild aortic regurgitation. * There is mild mitral regurgitation. * There is mild to moderate tricuspid regurgitation. * Right ventricular systolic pressure is elevated at 40-50mmHg. * There is no pericardial effusion. COPD Continue advair, Duoneb and oxygen supplement Stable Hypothyroidism Continue levothyroxine HTN On amlodipine, carvedilol Stable DVT px on Lovenox subq CODE STATUS FULL CODE Consultants: Thoracic surgery Oncology Pulmonary Current Inpatient Medications: Current Inpatient Medications Medications (Trade) Dose Ordered Sig/Gilbert Route Start Time Stop Time Status Last Admin Dose Admin Ioversol (Optiray 320) 125 ml UD PRN IV 02/27/16 16:15 03/02/16 16:14 Albuterol/ Ipratropium (Duoneb) 3 ml Q2H PRN INH 02/27/16 19:45 03/28/16 19:44 Enoxaparin Sodium (Lovenox Inj) 40 mg Q24H SC 02/27/16 22:00 03/28/16 21:59 Future Hold 02/29/16 20:52 40 MG Acetaminophen (Tylenol Tab) 650 mg Q4H PRN PO 02/27/16 21:15 03/28/16 21:14 02/27/16 22:07 650 MG Amlodipine Besylate (Norvasc Tab) 2.5 mg QAM PO 02/28/16 09:00 03/29/16 08:59 02/29/16 08:52 2.5 MG Aspirin (Ecotrin Tab) 81 mg DAILY PO 02/28/16 09:00 03/29/16 08:59 02/29/16 08:52 81 MG Carvedilol (Coreg Tab) 50 mg BID PO 02/28/16 09:00 03/29/16 08:59 02/29/16 20:51 50 MG Salmeterol Xinafoate/ Fluticasone (Advair Diskus 250/50 Inh) 1 puff BID INH 02/28/16 09:00 03/29/16 08:59 03/01/16 07:59 1 PUFF Fluticasone Propionate (Flonase Nasal [place]) DAILY LATRICE 02/28/16 09:00 03/29/16 08:59 03/01/16 07:59 1 SPRAYS Hydralazine HCl (Apresoline Tab) 75 mg TID PO 02/28/16 09:00 03/29/16 08:59 03/01/16 14:06 75 MG Levothyroxine Sodium (Synthroid Tab) 137 mcg DAILYBB PO 02/28/16 06:30 03/29/16 06:29 02/29/16 06:10 137 MCG Loratadine (Claritin Tab) 10 mg DAILY PO 02/28/16 09:00 03/29/16 08:59 02/29/16 08:51 10 MG Sertraline HCl (Zoloft Tab) 25 mg DAILY PO 02/28/16 09:00 03/29/16 08:59 02/29/16 08:53 25 MG Rosuvastatin Calcium (Crestor Tab) 40 mg QAM PO 02/28/16 09:00 03/29/16 08:59 02/29/16 08:54 40 MG Insulin Aspart (novoLOG ASPART) SLIDING SCALE If C... ACHS SC 02/28/16 06:30 03/29/16 06:29 Glucose (Glucose 40% Gel) 15-30 GRAMS 15 GRAMS... UD PRN PO 02/27/16 23:45 03/28/16 23:44 Glucose (Glucose Chew Tab) 4-8 Tablets 4 Tabl... UD PRN PO 02/27/16 23:45 03/28/16 23:44 Dextrose (Dextrose 50% 50ML Syringe) 25-50ML OF 50% DW IV FOR... UD PRN IV 02/27/16 23:45 03/28/16 23:44 Glucagon (Glucagon Inj) 1 mg UD PRN SQ 02/27/16 23:45 03/28/16 23:44 Hydromorphone HCl (Dilaudid Inj) 0.5 mg Q3H PRN IV 02/27/16 23:45 03/12/16 23:44 Tramadol HCl (Ultram Tab) 25 mg Q6H PRN PO 02/27/16 23:45 03/28/16 23:44 Ondansetron HCl (Zofran Inj) 4 mg Q6H PRN IV 02/27/16 23:45 03/28/16 23:44 Gadobutrol (Gadavist) 8 mmol UD PRN IV 02/28/16 18:15 03/03/16 18:14 Docusate Sodium (coLACE CAP) 100 mg BID PRN PO 02/29/16 19:00 03/30/16 18:59 02/29/16 20:50 100 MG
--- NOTE | 2016-03-01 15:38 | Anesthesiology Progress Note ---
Anesthesia Progress Note Date of Service Mar 01, 2016. Progress Notes The patient is a 75 y/o female with a h/o COPD on home 02, small cell lung CA , hx tob use ( quit 2007), HTN, DLD, CHF, Carotid artery disease s/p bilateral CEA, PVD, pulmonary HTN, GERD, DM, hypothyroidism and CKD scheduled for R VATS with Dr. Butts tomorrow. The patient was admitted with acute on chronic hypoxemic respiratory failure secondary to malignant pleural effusion re- accumulation. The patient is currently saturating 95% on 3L NC. She is only able to walk several feet before getting short of breath. She had a R sided thoracentesis 02/23/16 and had 830cc of fluid removed. Her Chest CT from admission shows moderate R pleural effusion with RML and RLL atelectasis as well as R hilar and mediastinal mass/adenopathy with narrowing of the RUL pulmonary artery. EKG shows RBBB with T wave inversion in inferior leads. An echo done on this admission showed EF 55-60% with normal LV function, mild LVH, mod-mod TR. On exam the patient was sitting comfortably in her chair. Her heart was RRR , lungs were clear but diminished. She does have slight bilateral carotid bruits, however she has a history of bilateral CEA. She has a Mallampati I airway with good TM distances. She has an upper plate. The patient was consented for GA with invasive monitoring. I informed her that there was a chance for prolonged intubation postoperatively. She was instructed to remain NPO except for a sip of water with medications after midnight. All questions were answered.
--- NOTE | 2016-03-01 16:13 | Hematology/Oncology Prog Note ---
Hematology/Onc Progress Note Date of Service Mar 01, 2016. Diagnoses 1. Small cell carcinoma of the lung with malignant right pleural effusion, mediastinal and right hilar adenopathy. No distant metastatic disease identified which CT of the abdomen/pelvis, a brain MRI and bone scan. She still considered stage IV disease with malignant pleural effusion. Thoracoscopy procedure with Dr. elizabeth work planned for tomorrow. Dr. Ortega as recommended carboplatin/ etoposide in the outpatient setting for systemic therapy. He has advised a port placement during his hospitalization as she has poor venous access. Patient will require a Medical Oncology outpatient follow- up upon discharge. Medications Medications Administered Medications (Trade) Dose Ordered Sig/Gilbert Route Start Time Stop Time Status Last Admin Dose Admin Albuterol/ Ipratropium (Duoneb) 3 ml UD STAT INH 02/27/16 19:35 02/27/16 20:04 DC 02/27/16 20:13 3 ML Enoxaparin Sodium (Lovenox Inj) 40 mg Q24H SC 02/27/16 22:00 03/28/16 21:59 Future Hold 02/29/16 20:52 40 MG Acetaminophen (Tylenol Tab) 650 mg Q4H PRN PO 02/27/16 21:15 03/28/16 21:14 02/27/16 22:07 650 MG Amlodipine Besylate (Norvasc Tab) 2.5 mg QAM PO 02/28/16 09:00 03/29/16 08:59 02/29/16 08:52 2.5 MG Aspirin (Ecotrin Tab) 81 mg DAILY PO 02/28/16 09:00 03/29/16 08:59 02/29/16 08:52 81 MG Carvedilol (Coreg Tab) 50 mg BID PO 02/28/16 09:00 03/29/16 08:59 02/29/16 20:51 50 MG Salmeterol Xinafoate/ Fluticasone (Advair Diskus 250/50 Inh) 1 puff BID INH 02/28/16 09:00 03/29/16 08:59 03/01/16 07:59 1 PUFF Fluticasone Propionate (Flonase Nasal [place]) DAILY LATRICE 02/28/16 09:00 03/29/16 08:59 03/01/16 07:59 1 SPRAYS Hydralazine HCl (Apresoline Tab) 75 mg TID PO 02/28/16 09:00 03/29/16 08:59 03/01/16 14:06 75 MG Levothyroxine Sodium (Synthroid Tab) 137 mcg DAILYBB PO 02/28/16 06:30 03/29/16 06:29 02/29/16 06:10 137 MCG Loratadine (Claritin Tab) 10 mg DAILY PO 02/28/16 09:00 03/29/16 08:59 02/29/16 08:51 10 MG Sertraline HCl (Zoloft Tab) 25 mg DAILY PO 02/28/16 09:00 03/29/16 08:59 02/29/16 08:53 25 MG Rosuvastatin Calcium (Crestor Tab) 40 mg QAM PO 02/28/16 09:00 03/29/16 08:59 02/29/16 08:54 40 MG Lorazepam (Ativan Tab) 0.25 mg ONE ONCE PO 02/28/16 01:00 02/28/16 01:05 DC 02/28/16 01:10 0.25 MG Lorazepam (Ativan Tab) 0.25 mg ONE ONCE PO 02/29/16 00:15 02/29/16 00:17 DC 02/29/16 00:35 0.25 MG Simethicone (Mylicon Chew Tab) 80 mg ONE ONCE PO 02/29/16 00:15 02/29/16 00:17 DC 02/29/16 00:35 80 MG Docusate Sodium (coLACE CAP) 100 mg BID PRN PO 02/29/16 19:00 03/30/16 18:59 02/29/16 20:50 100 MG Polyethylene (Miralax Powder Packet) 17 gm NOW ONCE PO 03/01/16 10:45 03/01/16 10:50 DC 03/01/16 11:22 17 GM Subjective Patient reports no major change in her baseline health status. She continues to require supplemental oxygen via nasal cannula. She has 2 neighbors visiting and appears in good spirits. She has not had dyspnea, cough, chest pain, headache, dizziness, abdominal issues,focal bone pain. Vital Signs Vital Signs Past 12 Hours Date Time Temp Pulse Resp B/P Pulse Ox O2 Delivery O2 Flow Rate FiO2 03/01/16 15:01 36.8 64 18 117/68 93 Nasal Cannula 3.0 03/01/16 14:05 63 134/72 03/01/16 12:30 Nasal Cannula 4.0 03/01/16 12:12 36.9 67 16 119/64 92 Nasal Cannula 3.0 03/01/16 08:30 Nasal Cannula 4.0 03/01/16 07:52 36.7 60 18 117/70 94 Nasal Cannula 3.0 03/01/16 04:16 Nasal Cannula 4.0 Humidified Oxygen 03/01/16 04:15 93 Nasal Cannula 4.0 Humidified Oxygen Physical Exam Constitutional: General Apperance: heathly-appearing, well-nourished, well-developed Level of Distress: NAD Lungs: Respiratory Effort: no dyspnea Auscuitation: no wheezing, no rales/crackles, no rhonchi, deminished air movement Cardiovascular: Heart Auscultation: RRR Abdomen: Inspection & Palpation: soft, non-distended, no masses Extremities: edema (ankles to micalf, no tenderness to palpation) Neurologic: Cranial Nerves: grossly intact Sensation: grossly intact Laboratory 02/27/16 16:30 Red Blood Count 3.73, Mean Corpuscular Volume 99.5, Mean Corpuscular Hemoglobin 30.8, Mean Corpuscular Hemoglobin Concent 31.0, Mean Platelet Volume 9.1, Neutrophils (%) (Auto) 75.6, Lymphocytes (%) (Auto) 13.0, Monocytes (%) (Auto) 9.7, Eosinophils (%) (Auto) 1.0, Basophils (%) (Auto) 0.2, Neutrophils # (Auto) 6.33, Lymphocytes # (Auto) 1.09, Monocytes # (Auto) 0.81, Eosinophils # (Auto) 0.08, Basophils # (Auto) 0.02 02/28/16 06:36 Red Blood Count 3.62, Mean Corpuscular Volume 98.6, Mean Corpuscular Hemoglobin 30.7, Mean Corpuscular Hemoglobin Concent 31.1, Mean Platelet Volume 9.1, Neutrophils (%) (Auto) 68.4, Lymphocytes (%) (Auto) 17.2, Monocytes (%) (Auto) 11.8, Eosinophils (%) (Auto) 1.9, Basophils (%) (Auto) 0.4, Neutrophils # (Auto ) 4.98, Lymphocytes # (Auto) 1.25, Monocytes # (Auto) 0.86, Eosinophils # (Auto ) 0.14, Basophils # (Auto) 0.03 02/29/16 06:36 03/01/16 06:48 02/27/16 16:30 02/29/16 06:36 03/01/16 06:48 Test 02/27/16 16:30 02/27/16 20:39 02/28/16 06:36 02/28/16 07:56 White Blood Count 8.37 K/uL (4.8-10.8) 7.28 K/uL (4.8-10.8) Red Blood Count 3.73 M/uL (4.2-5.4) 3.62 M/uL (4.2-5.4) Hemoglobin 11.5 g/dL (12.0-16.0) 11.1 g/dL (12.0-16.0) Hematocrit 37.1 % (37-47) 35.7 % (37-47) Mean Corpuscular Volume 99.5 fL (80-100) 98.6 fL (80-100) Mean Corpuscular Hemoglobin 30.8 pg (25-34) 30.7 pg (25-34) Mean Corpuscular Hemoglobin Concent 31.0 g/dl (32-36) 31.1 g/dl (32-36) Platelet Count 167 K/uL (130-400) 157 K/uL (130-400) Mean Platelet Volume 9.1 fL (7.4-10.4) 9.1 fL (7.4-10.4) Neutrophils (%) (Auto) 75.6 % 68.4 % Lymphocytes (%) (Auto) 13.0 % 17.2 % Monocytes (%) (Auto) 9.7 % 11.8 % Eosinophils (%) (Auto) 1.0 % 1.9 % Basophils (%) (Auto) 0.2 % 0.4 % Neutrophils # (Auto) 6.33 K/uL (1.4-6.5) 4.98 K/uL (1.4-6.5) Lymphocytes # (Auto) 1.09 K/uL (1.2-3.4) 1.25 K/uL (1.2-3.4) Monocytes # (Auto) 0.81 K/uL (0.11-0.59) 0.86 K/uL (0.11-0.59) Eosinophils # (Auto) 0.08 K/uL (0-0.5) 0.14 K/uL (0-0.5) Basophils # (Auto) 0.02 K/uL (0-0.2) 0.03 K/uL (0-0.2) RDW Standard Deviation 50.0 fL (36.4-46.3) 50.3 fL (36.4-46.3) RDW Coefficient of Variation 13.8 % (11.5-14.5) 13.8 % (11.5-14.5) Immature Granulocyte % (Auto) 0.5 % 0.3 % Immature Granulocyte # (Auto) 0.04 K/uL (0.00-0.02) 0.02 K/uL (0.00-0.02) Prothrombin Time 10.4 SECONDS (9.0-12.0) Prothromb Time International Ratio 1.0 (0.9-1.1) Activated Partial Thromboplast Time 20.2 SECONDS (21.0-31.0) Partial Thromboplastin Ratio 0.8 Anion Gap 10.0 mmol/L (3-11) Est Creatinine Clear Calc Drug Dose 42.1 ml/min Estimated GFR () 56.5 Estimated GFR (Non- 48.7 BUN/Creatinine Ratio 15.8 (10-20) Calcium Level 8.8 mg/dl (8.5-10.1) Magnesium Level 2.1 mg/dl (1.8-2.4) Total Bilirubin 0.2 mg/dl (0.2-1) Direct Bilirubin < 0.1 mg/dl (0-0.2) Aspartate Amino Transf (AST/SGOT) 26 U/L (15-37) Alanine Aminotransferase (ALT/SGPT) 29 U/L (12-78) Alkaline Phosphatase 43 U/L (45-117) Troponin I < 0.015 ng/ml (0-0.045) Pro-B-Type Natriuretic Peptide 572 pg/ml (0-1800) Total Protein 6.5 gm/dl (6.4-8.2) Albumin 3.3 gm/dl (3.4-5.0) Lipase 228 U/L (73-393) Bedside Blood Gas pH (LAB) 7.34 (7.35-7.45) Bedside Blood Gas pCO2 (LAB) 52 mmHg (35-46) Bedside Blood Gas pO2 (LAB) 63 mmHg (80-95) Bedside Blood Gas HCO3 (LAB) 28 meq/L (19-24) Bedside Blood Gas Total CO2 30 mEq/l (24-31) Bedside Blood Gas Base Excess (LAB) 2.0 meq/L (-9-1.8) Bedside Blood Gas O2 Saturation 90.0 % (90-95) Bedside Glucose 120 mg/dl (70-90) Test 02/28/16 12:08 02/28/16 14:36 02/28/16 17:39 02/28/16 20:05 Bedside Glucose 114 mg/dl (70-90) 167 mg/dl (70-90) 122 mg/dl (70-90) Uric Acid 5.4 mg/dl (2.6-7.2) Lactate Dehydrogenase 182 U/L (84-246) Test 02/29/16 06:36 02/29/16 07:07 02/29/16 11:21 02/29/16 16:23 Red Blood Count 3.70 M/uL (4.2-5.4) Mean Corpuscular Volume 98.6 fL (80-100) Mean Corpuscular Hemoglobin 30.5 pg (25-34) Mean Corpuscular Hemoglobin Concent 31.0 g/dl (32-36) RDW Standard Deviation 49.1 fL (36.4-46.3) RDW Coefficient of Variation 13.7 % (11.5-14.5) Mean Platelet Volume 8.9 fL (7.4-10.4) Anion Gap 10.0 mmol/L (3-11) Est Creatinine Clear Calc Drug Dose 38.5 ml/min Estimated GFR () 50.8 Estimated GFR (Non- 43.9 BUN/Creatinine Ratio 11.0 (10-20) Calcium Level 8.8 mg/dl (8.5-10.1) Bedside Glucose 119 mg/dl (70-90) 148 mg/dl (70-90) 117 mg/dl (70-90) Test 02/29/16 20:15 03/01/16 06:48 03/01/16 07:38 03/01/16 12:18 Bedside Glucose 125 mg/dl (70-90) 115 mg/dl (70-90) 153 mg/dl (70-90) Red Blood Count 3.68 M/uL (4.2-5.4) Mean Corpuscular Volume 98.9 fL (80-100) Mean Corpuscular Hemoglobin 31.3 pg (25-34) Mean Corpuscular Hemoglobin Concent 31.6 g/dl (32-36) RDW Standard Deviation 49.3 fL (36.4-46.3) RDW Coefficient of Variation 13.7 % (11.5-14.5) Mean Platelet Volume 9.0 fL (7.4-10.4) Anion Gap 10.0 mmol/L (3-11) Est Creatinine Clear Calc Drug Dose 41.9 ml/min Estimated GFR () 56.5 Estimated GFR (Non- 48.7 BUN/Creatinine Ratio 14.4 (10-20) Calcium Level 8.8 mg/dl (8.5-10.1) Radiology Brain MRI from 02/28/2016: No acute intracranial hemorrhage, midline shift or mass effect present. No extra-axial fluid collections. Enhancing extra-axial left parafalcine mass medial to the left frontoparietal region measuring 1.5 x 0.4 x 1.4 cm, suggestive of small meningioma. No additional intracranial masses present. No calvarial lesions. 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 Bone scan from 03/01/2016: No suspicious radiotracer uptake identified. Mild uptake within the right aspect of the spine at the L5 level likely degenerative. Mild uptake within the shoulders, sternoclavicular joints, right knee and feet likely degenerative. Assessment & Plan (1) Small cell carcinoma of right lung Assessment & Plan: See diagnosis section at top for A/P. (2) Pleural effusion Status: Acute Assessment & Plan: See diagnosis section at top for A/P.
[2016-03-01] MEDS: DOCUSATE SODIUM 100 MG CAP PO PRN ×2 (16:57→21:11)
--- NOTE | 2016-03-01 20:03 | SURGERY PROGRESS NOTE ---
DATE: 03/01/2016 Ms. Faustin was seen today on 03/01/2016. I could not get her on the OR schedule today. We again discussed surgery. I am going to do a thoracoscopy tomorrow with drainage of this pleural effusion and talc pleurodesis. She and I had a long discussion about this. She is quite ready to have this done.
[2016-03-02] VITALS (9 sets, daily range): BP systolic 102–143; BP diastolic 61–79; PULSE 61–88; TEMP 36.4–37; O2SAT 90–95
[2016-03-02] MEDS: LEVOTHYROXINE 137 MCG TAB PO SCH (06:20)
[2016-03-02 06:44] LABS: BASO % 0.2 %; BASO ABS # 0.02 K/uL (0-0.2); COMPLETE YES; EOS % 1.4 %; HEMATOCRIT 38.4 % (37-47); IG% 0.4 %; LYMPH % 16.5 %; LYMPH ABS # 1.32 K/uL (1.2-3.4); MEAN CORPUSCULAR HEMOGLOBIN 30.7 pg (25-34); MONO % 10.4 %; NEUT % 71.1 %; PLATELET COUNT 177 K/uL (130-400); RED BLOOD COUNT 3.88 M/uL (4.2-5.4); WHITE BLOOD COUNT 8.01 K/uL (4.8-10.8)
[2016-03-02] MEDS: INSULIN ASPART 100 UNITS/ML 3 ML PEN SC SCH ×4 (07:38→21:00)
[2016-03-02] MEDS: FLUTICASONE/SALMETEROL 250/50 (ADVAIR) 14 PUFF/1 INHALER INH SCH ×2 (07:50→20:26)
[2016-03-02] MEDS: FLUTICASONE PROPIONATE NA SPR 16 GM BTL NAE SCH (07:50)
[2016-03-02] MEDS: ROSUVASTATIN CALCIUM 20 MG TAB PO SCH (07:51)
[2016-03-02] MEDS: AMLODIPINE BESYLATE 5 MG TAB PO SCH (07:51)
[2016-03-02] MEDS: LORATADINE 10 MG TAB PO SCH (07:51)
[2016-03-02] MEDS: SERTRALINE HCL 50 MG TAB PO SCH (07:51)
[2016-03-02] MEDS: CARVEDILOL 25 MG TAB PO SCH ×2 (07:52→20:27)
[2016-03-02] MEDS: ASPIRIN 81 MG ECTAB PO SCH (07:52)
[2016-03-02] MEDS: ALBUT/IPRATROP 3MG/0.5MG NEB 3 ML VIAL INH PRN (08:30)
--- NOTE | 2016-03-02 11:39 | Pulmonology Progress Note ---
Pulmonary Progress Note Date of Service Mar 02, 2016. Attending Dr. Hancock Subjective Reports constipation with increased abdominal pressure - no BM x 1 week despite Colase and Mirilax yesterday. Woke with dyspnea overnight last night, resolved with nebulized bronchodilators. No chest pain or cough. NPO this AM. Objective 75-yo female admitted 02/27/16 with recurrent right sided malignant effusion. PMHx includes: recent admission - with right pleural effusion s/p evacuation with cytology + metastatic small cell carcinoma with progressive mediastinal and hilar adenopathy on CT, O2-dependant COPD, hypothyroid, HTN, DM , pulmonary HTN, carotic stenosis, PVC. Patient admitted to [facility] 02/27/16 through the ER with symptoms of progressive dyspnea. CTA: recurrence of right sided pleural effusion (drained 1-week prior) with associated atelectasis and persistent mediastinal and hilar adenopathy. Echocardiogram 02/28/16: EF 55-60%, grade I diastolic dysfunction, with mild MR/ TR and RVS: 40-50mmHg. CT A/P and MRI brain: no mets. Pulmonary and surgery consulted in consideration of PleurX catheter placement vs VATS. Patient declined PleurX and is scheduled to proceed with VATS and talc pleurodesis early this afternoon. Today: - 90-95%: 3-4LPM - Afebrile, HD stable - WBC: 8.08, Hgb/Hct: 11.9/38.4, Plts: 177 Physical Exam: Constitutional: Well developed elderly female sitting in chair at bedside. No acute distress Head: + facial symmetry Eyes: EOMi, PERRLA, no injection. Corrective lenses Mouth: Dentures in place. Moist mucous membranes. No erythema or exudate Respiratory: Shallow non-labored respirations. No cough on exam. Absent BS right base and decreased right middle tup upper 2/3 lung vasquez. Left: diminished at bases. no wheeze, rales or rhonchi CV: Regular rate and rhythm, II/ systolic murmur. Warm and perfused peripherally MSK/Extremities: Moving UE/LEs symmetrically. Trace, non-pitting peripheral edema with varicosities. Neurologic: Alert, oriented to person and place. Cooperative and answering questions appropriately. Assessment & Plan 75-yo female with O2-dependent COPD and recurrent right sided pleural effusion: 1. COPD controlled on Advair and Duo-nebs: continue at this time 2. Recurrent malignant [Small Cell]: VATS with talc pleurodesis this afternoon. 3. Constipation: escalate regimen with enema to relieve abdominal pressure Data Medications: Current Inpatient Medications Medications (Trade) Dose Ordered Sig/Gilbert Route Start Time Stop Time Status Last Admin Dose Admin Ioversol (Optiray 320) 125 ml UD PRN IV 02/27/16 16:15 03/02/16 16:14 Albuterol/ Ipratropium (Duoneb) 3 ml Q2H PRN INH 02/27/16 19:45 03/28/16 19:44 03/02/16 08:30 3 ML Enoxaparin Sodium (Lovenox Inj) 40 mg Q24H SC 02/27/16 22:00 03/28/16 21:59 Future Hold 02/29/16 20:52 40 MG Acetaminophen (Tylenol Tab) 650 mg Q4H PRN PO 02/27/16 21:15 03/28/16 21:14 02/27/16 22:07 650 MG Amlodipine Besylate (Norvasc Tab) 2.5 mg QAM PO 02/28/16 09:00 03/29/16 08:59 03/02/16 07:51 2.5 MG Aspirin (Ecotrin Tab) 81 mg DAILY PO 02/28/16 09:00 03/29/16 08:59 03/02/16 07:52 81 MG Carvedilol (Coreg Tab) 50 mg BID PO 02/28/16 09:00 03/29/16 08:59 03/02/16 07:52 50 MG Salmeterol Xinafoate/ Fluticasone (Advair Diskus 250/50 Inh) 1 puff BID INH 02/28/16 09:00 03/29/16 08:59 03/02/16 07:50 1 PUFF Fluticasone Propionate (Flonase Nasal [place]) DAILY LATRICE 02/28/16 09:00 03/29/16 08:59 03/02/16 07:50 1 SPRAYS Hydralazine HCl (Apresoline Tab) 75 mg TID PO 02/28/16 09:00 03/29/16 08:59 03/02/16 07:50 75 MG Levothyroxine Sodium (Synthroid Tab) 137 mcg DAILYBB PO 02/28/16 06:30 03/29/16 06:29 03/02/16 06:20 137 MCG Loratadine (Claritin Tab) 10 mg DAILY PO 02/28/16 09:00 03/29/16 08:59 03/02/16 07:51 10 MG Sertraline HCl (Zoloft Tab) 25 mg DAILY PO 02/28/16 09:00 03/29/16 08:59 03/02/16 07:51 25 MG Rosuvastatin Calcium (Crestor Tab) 40 mg QAM PO 02/28/16 09:00 03/29/16 08:59 03/02/16 07:51 40 MG Insulin Aspart (novoLOG ASPART) SLIDING SCALE If C... ACHS SC 02/28/16 06:30 03/29/16 06:29 Glucose (Glucose 40% Gel) 15-30 GRAMS 15 GRAMS... UD PRN PO 02/27/16 23:45 03/28/16 23:44 Glucose (Glucose Chew Tab) 4-8 Tablets 4 Tabl... UD PRN PO 02/27/16 23:45 03/28/16 23:44 Dextrose (Dextrose 50% 50ML Syringe) 25-50ML OF 50% DW IV FOR... UD PRN IV 02/27/16 23:45 03/28/16 23:44 Glucagon (Glucagon Inj) 1 mg UD PRN SQ 02/27/16 23:45 03/28/16 23:44 Hydromorphone HCl (Dilaudid Inj) 0.5 mg Q3H PRN IV 02/27/16 23:45 03/12/16 23:44 Tramadol HCl (Ultram Tab) 25 mg Q6H PRN PO 02/27/16 23:45 03/28/16 23:44 Ondansetron HCl (Zofran Inj) 4 mg Q6H PRN IV 02/27/16 23:45 03/28/16 23:44 Gadobutrol (Gadavist) 8 mmol UD PRN IV 02/28/16 18:15 03/03/16 18:14 Docusate Sodium (coLACE CAP) 100 mg BID PRN PO 02/29/16 19:00 03/30/16 18:59 03/01/16 21:11 100 MG I & O: 24-Hour Column 03/02/16 08:00 Intake Total 700 ml Output Total 1700 ml Balance -1000 ml Vital Signs: Date Time Temp Pulse Resp B/P Pulse Ox O2 Delivery O2 Flow Rate FiO2 03/02/16 08:30 88 18 95 Nasal Cannula 3.0 03/02/16 08:00 94 Nasal Cannula 4.0 03/02/16 08:00 Nasal Cannula 4.0 03/02/16 07:39 36.4 70 18 143/79 94 4.0 03/02/16 04:25 37.0 71 20 136/69 90 Nasal Cannula 3.0 03/02/16 04:00 Nasal Cannula 3.0 03/02/16 00:00 Nasal Cannula 3.0 03/01/16 23:14 36.7 59 18 112/69 95 Nasal Cannula 3.0 03/01/16 20:00 Nasal Cannula 3.0 03/01/16 19:58 36.9 62 20 124/69 93 Nasal Cannula 3.0 03/01/16 16:00 Nasal Cannula 4.0 03/01/16 15:01 36.8 64 18 117/68 93 Nasal Cannula 3.0 03/01/16 14:05 63 134/72 03/01/16 12:30 Nasal Cannula 4.0 03/01/16 12:12 36.9 67 16 119/64 92 Nasal Cannula 3.0 Laboratory Results: Last 24 Hours Test 03/01/16 12:18 03/01/16 16:21 03/01/16 20:44 03/02/16 06:15 Bedside Glucose 153 mg/dl 165 mg/dl 156 mg/dl White Blood Count 8.01 K/uL Red Blood Count 3.88 M/uL Hemoglobin 11.9 g/dL Hematocrit 38.4 % Mean Corpuscular Volume 99.0 fL Mean Corpuscular Hemoglobin 30.7 pg Mean Corpuscular Hemoglobin Concent 31.0 g/dl Platelet Count 177 K/uL Mean Platelet Volume 9.0 fL Neutrophils (%) (Auto) 71.1 % Lymphocytes (%) (Auto) 16.5 % Monocytes (%) (Auto) 10.4 % Eosinophils (%) (Auto) 1.4 % Basophils (%) (Auto) 0.2 % Neutrophils # (Auto) 5.70 K/uL Lymphocytes # (Auto) 1.32 K/uL Monocytes # (Auto) 0.83 K/uL Eosinophils # (Auto) 0.11 K/uL Basophils # (Auto) 0.02 K/uL RDW Standard Deviation 49.4 fL RDW Coefficient of Variation 13.8 % Immature Granulocyte % (Auto) 0.4 % Immature Granulocyte # (Auto) 0.03 K/uL Test 03/02/16 07:24 Bedside Glucose 134 mg/dl
[2016-03-02] MEDS ORDERED: PROPOFOL IV EMULSION 10 MG/ML 20 ML VIAL IV ONE (12:13)
[2016-03-02] MEDS ORDERED: DEXAMETHASONE SOD INJ 4 MG/ML VIAL ONE (12:13)
[2016-03-02] MEDS ORDERED: LIDOCAINE HCL 2% 2 ML VIAL (20MG/ML) ONE (12:13)
[2016-03-02] MEDS ORDERED: NEOSTIGMINE METHYLSULFATE 5 MG/5 ML SYR ONE (12:13)
[2016-03-02] MEDS ORDERED: GLYCOPYRROLATE INJ 0.2 MG/ML VIAL ONE (12:13)
[2016-03-02] MEDS ORDERED: FENTANYL CITRATE INJ 50 MCG/1 ML 2 ML VIAL ONE (12:13)
[2016-03-02] MEDS ORDERED: ROCURONIUM BROMIDE 10 MG/ML 5 ML VIAL ONE (12:13)
[2016-03-02] MEDS ORDERED: ONDANSETRON INJ 2 MG/ML 2 ML VIAL ONE (12:13)
[2016-03-02] MEDS ORDERED: BUPIVACAINE LIPOSOME 1/3% 266 MG/20 ML VIAL INFIL ONE (12:45)
--- NOTE | 2016-03-02 13:07 | History & Physical Bridge Note ---
H&P Re-Evaluation Bridge Note: I have examined the patient, reviewed the History & Physical and in the interval since the performance of the History & Physical I have noted the following changes of clinical significance: No changes noted
[2016-03-02] MEDS ORDERED: TALC TOP ONE (15:18)
[2016-03-02] MEDS ORDERED: MIX: 266 MG EXPAREL + 40 ML INJ SALINE INJ ONE (15:27)
[2016-03-02] MEDS ORDERED: FENTANYL CITRATE INJ 50 MCG/1 ML 2 ML VIAL IV PRN (15:30)
[2016-03-02] MEDS ORDERED: EpHEDrine SULFATE INJ 50 MG/ML AMP IV PRN (15:30)
[2016-03-02] MEDS ORDERED: ONDANSETRON INJ 2 MG/ML 2 ML VIAL IV PRN ×2 (15:30→15:45)
[2016-03-02] MEDS ORDERED: ATROPINE SULFATE 0.1 MG/ML 5ML SYR IV PRN (15:30)
--- NOTE | 2016-03-02 16:05 | DIAGNOSTIC IMAGING REPORT ---
CHEST ONE VIEW PORTABLE CLINICAL HISTORY: s/p talc pleurodesis COMPARISON STUDY: Chest radiograph and chest CT February 27, 2016. FINDINGS: Gas within the right chest wall is noted. There has been placement of 2 right sided chest tubes. The right pleural effusion has markedly decreased in size since prior exam. There is a suspected small right apical pneumothorax. A few nodular opacities within the right lung are present. Cardiomegaly is unchanged. There is no evidence of pulmonary edema. IMPRESSION: 1. Marked decrease in size of the right pleural effusion status post placement of 2 right-sided chest tubes. Improved right lung aeration. 2. Possible small right apical pneumothorax. 3. A few nodular opacities within the right lung. Electronically signed by: Joon Koehler M.D. 03/02/2016 4:04 PM Dictated Date/Time: 03/02/2016 4:01 PM
--- NOTE | 2016-03-02 16:32 | Anesthesiology Progress Note ---
Anesthesia Post Op Note Date & Time Mar 02, 2016 at 16:32 Vital Signs Pain Intensity: 0.0 Vital Signs Past 12 Hours Date Time Temp Pulse Resp B/P Pulse Ox O2 Delivery O2 Flow Rate FiO2 03/02/16 16:20 62 16 127/60 94 Nasal Cannula 4 03/02/16 16:10 62 16 145/61 94 Mask 10 03/02/16 16:00 66 16 144/74 98 Mask 10 03/02/16 15:51 36.2 67 16 137/60 96 Mask 10 03/02/16 12:10 Nasal Cannula 4.0 03/02/16 08:30 88 18 95 Nasal Cannula 3.0 03/02/16 08:00 94 Nasal Cannula 4.0 03/02/16 08:00 Nasal Cannula 4.0 03/02/16 07:39 36.4 70 18 143/79 94 4.0 Notes Mental Status: alert / awake / arousable, participated in evaluation Pt Amnestic to Procedure: Yes Nausea / Vomiting: adequately controlled Pain: adequately controlled Airway Patency, RR, SpO2: stable & adequate BP & HR: stable & adequate Hydration State: stable & adequate Anesthetic Complications: no major complications apparent
[2016-03-02] MEDS: CEFAZOLIN IV 2,000 MG in DEXTROSE 5% 50ML 50 ML IV SCH (17:53)
[2016-03-02] MEDS: ACETAMINOPHEN IV 1,000 MG in EMPTY BAG 0 ML IV SCH (17:53)
--- NOTE | 2016-03-02 18:13 | Progress Note ---
Medicine Progress Note Date & Time of Visit: Mar 02, 2016 at 18:03. Subjective Patient seen and examined. Seen after VATS and pleurodesis. Tolerated surgery well without complication. Currently denies pain. Objective Last 8 Hrs Date Time Temp Pulse Resp B/P Pulse Ox O2 Delivery O2 Flow Rate FiO2 03/02/16 16:59 36.4 64 18 102/65 94 Nasal Cannula 03/02/16 16:30 36.4 58 16 115/50 94 Nasal Cannula 4 03/02/16 16:20 62 16 127/60 94 Nasal Cannula 4 03/02/16 16:10 62 16 145/61 94 Mask 10 03/02/16 16:00 66 16 144/74 98 Mask 10 03/02/16 15:51 36.2 67 16 137/60 96 Mask 10 03/02/16 12:10 Nasal Cannula 4.0 Physical Exam: General-awake; alert; NAD Eyes-EOMI; no scleral icterus Neck-no stridor; trachea midline Lungs-CTA bilaterally anteriorly on the left; diminished breath sounds on right Heart-RRR; no m/r/g Abdomen-soft; NTND; nBS Chest-chest tubes in place; surgical bandage c/d/i Neuro-no gross focal deficits Laboratory Results: Last 24 Hours Test 03/01/16 20:44 03/02/16 06:15 03/02/16 07:24 03/02/16 11:40 Bedside Glucose 156 mg/dl 134 mg/dl 140 mg/dl White Blood Count 8.01 K/uL Red Blood Count 3.88 M/uL Hemoglobin 11.9 g/dL Hematocrit 38.4 % Mean Corpuscular Volume 99.0 fL Mean Corpuscular Hemoglobin 30.7 pg Mean Corpuscular Hemoglobin Concent 31.0 g/dl Platelet Count 177 K/uL Mean Platelet Volume 9.0 fL Neutrophils (%) (Auto) 71.1 % Lymphocytes (%) (Auto) 16.5 % Monocytes (%) (Auto) 10.4 % Eosinophils (%) (Auto) 1.4 % Basophils (%) (Auto) 0.2 % Neutrophils # (Auto) 5.70 K/uL Lymphocytes # (Auto) 1.32 K/uL Monocytes # (Auto) 0.83 K/uL Eosinophils # (Auto) 0.11 K/uL Basophils # (Auto) 0.02 K/uL RDW Standard Deviation 49.4 fL RDW Coefficient of Variation 13.8 % Immature Granulocyte % (Auto) 0.4 % Immature Granulocyte # (Auto) 0.03 K/uL Test 03/02/16 16:00 Bedside Glucose 142 mg/dl Assessment & Plan Acute on chronic hypoxemic respiratory failure Likely secondary to right pleural effusion Continue oxygen supplement Thoracic surgery consulted VATS and pleurodesis 03/02/16 Pulmonary consulted Small Cell Lung Cancer Stage IV Oncology consulted Recommended palliative treatment, to start as outpatient Right Bundle Branch block Asymptomatic Continue rosuvastatin, aspirin, and carvedilol TTE unremarkable COPD Continue Advair, duoneb and oxygen supplement Hypothyroidism Continue levothyroxine HTN Continue amlodipine, carvedilol, hydralazine DVT prophylaxis with SCD's. Consultants: Thoracic surgery Oncology Pulmonary Procedures: ECHO: The left ventricle is normal in size. * There is mild concentric left ventricular hypertrophy. * The left ventricular wall motion is normal. * Left ventricular systolic function is normal. * Ejection Fraction = 55-60%. * The left atrium is moderately dilated. * Aortic valve sclerosis mild, without significant aortic valvular stenosis. * Mild aortic regurgitation. * There is mild mitral regurgitation. * There is mild to moderate tricuspid regurgitation. * Right ventricular systolic pressure is elevated at 40-50mmHg. * There is no pericardial effusion. CT chest 1. No CT evidence of acute pulmonary embolism 2. Moderate right pleural effusion with associated right middle lobe and lower lobe atelectasis 3. Persistent right hilar and mediastinal mass/adenopathy. There is secondary narrowing of the right upper lobe pulmonary artery. This mass/adenopathy is almost certainly neoplastic. Again pulmonary consultation for biopsy is recommended. CT a/p 1. No evidence of bowel obstruction. No evidence of free air 2. No acute inflammatory changes within the abdomen or pelvis 3. Pathologic mediastinal and right hilar adenopathy 4. Moderate right pleural effusion with right middle lobe and right lower lobe atelectatic change 5. Small pericardial effusion. Coronary artery calcifications. MRI brain 1. No evidence of metastatic disease. 2. No acute intracranial findings. 3. 1.5 x 0.4 x 1.4 cm left parafalcine lesion suggestive of a small meningioma. Bone scan No evidence of skeletal metastatic disease. Current Inpatient Medications: Current Inpatient Medications Medications (Trade) Dose Ordered Sig/Gilbert Route Start Time Stop Time Status Last Admin Dose Admin Albuterol/ Ipratropium (Duoneb) 3 ml Q2H PRN INH 02/27/16 19:45 03/28/16 19:44 03/02/16 08:30 3 ML Enoxaparin Sodium (Lovenox Inj) 40 mg Q24H SC 02/27/16 22:00 03/28/16 21:59 Future Hold 02/29/16 20:52 40 MG Acetaminophen (Tylenol Tab) 650 mg Q4H PRN PO 02/27/16 21:15 03/28/16 21:14 02/27/16 22:07 650 MG Amlodipine Besylate (Norvasc Tab) 2.5 mg QAM PO 02/28/16 09:00 03/29/16 08:59 03/02/16 07:51 2.5 MG Aspirin (Ecotrin Tab) 81 mg DAILY PO 02/28/16 09:00 03/29/16 08:59 03/02/16 07:52 81 MG Carvedilol (Coreg Tab) 50 mg BID PO 02/28/16 09:00 03/29/16 08:59 03/02/16 07:52 50 MG Salmeterol Xinafoate/ Fluticasone (Advair Diskus 250/50 Inh) 1 puff BID INH 02/28/16 09:00 03/29/16 08:59 03/02/16 07:50 1 PUFF Fluticasone Propionate (Flonase Nasal [place]) DAILY LATRICE 02/28/16 09:00 03/29/16 08:59 03/02/16 07:50 1 SPRAYS Hydralazine HCl (Apresoline Tab) 75 mg TID PO 02/28/16 09:00 03/29/16 08:59 03/02/16 07:50 75 MG Levothyroxine Sodium (Synthroid Tab) 137 mcg DAILYBB PO 02/28/16 06:30 03/29/16 06:29 03/02/16 06:20 137 MCG Loratadine (Claritin Tab) 10 mg DAILY PO 02/28/16 09:00 03/29/16 08:59 03/02/16 07:51 10 MG Sertraline HCl (Zoloft Tab) 25 mg DAILY PO 02/28/16 09:00 03/29/16 08:59 03/02/16 07:51 25 MG Rosuvastatin Calcium (Crestor Tab) 40 mg QAM PO 02/28/16 09:00 03/29/16 08:59 03/02/16 07:51 40 MG Insulin Aspart (novoLOG ASPART) SLIDING SCALE If C... ACHS SC 02/28/16 06:30 03/29/16 06:29 Glucose (Glucose 40% Gel) 15-30 GRAMS 15 GRAMS... UD PRN PO 02/27/16 23:45 03/28/16 23:44 Glucose (Glucose Chew Tab) 4-8 Tablets 4 Tabl... UD PRN PO 02/27/16 23:45 03/28/16 23:44 Dextrose (Dextrose 50% 50ML Syringe) 25-50ML OF 50% DW IV FOR... UD PRN IV 02/27/16 23:45 03/28/16 23:44 Glucagon (Glucagon Inj) 1 mg UD PRN SQ 02/27/16 23:45 03/28/16 23:44 Hydromorphone HCl (Dilaudid Inj) 0.5 mg Q3H PRN IV 02/27/16 23:45 03/12/16 23:44 Tramadol HCl (Ultram Tab) 25 mg Q6H PRN PO 02/27/16 23:45 03/28/16 23:44 Gadobutrol (Gadavist) 8 mmol UD PRN IV 02/28/16 18:15 03/03/16 18:14 Docusate Sodium (coLACE CAP) 100 mg BID PRN PO 02/29/16 19:00 03/30/16 18:59 03/01/16 21:11 100 MG Senna (Senokot Tab) 17.2 mg QAM PO 03/03/16 09:00 04/02/16 08:59 Polyethylene (Miralax Powder Packet) 17 gm DAILY PRN PO 03/02/16 14:15 04/01/16 14:14 Fentanyl Citrate (Fentanyl Inj) 25 mcg Q5M PRN IV 03/02/16 15:30 03/02/16 21:00 Ondansetron HCl (Zofran Inj) 4 mg ONE PRN IV 03/02/16 15:30 03/02/16 21:00 Ephedrine Sulfate (EpHEDrine SULFATE INJ) 5 mg Q5M PRN IV 03/02/16 15:30 03/02/16 21:00 Atropine Sulfate (Atropine Sulfate 0.1MG/Ml Inj) 0.5 mg Q1M PRN IV 03/02/16 15:30 03/02/16 21:00 Ondansetron HCl (Zofran Inj) 4 mg Q4H PRN IV 03/02/16 15:45 04/01/16 15:44 Docusate Sodium 100 mg 100 mg BID PO 03/02/16 21:00 04/01/16 20:59 Cefazolin Sodium/ Dextrose (Ancef Iv/D5 50ml) 60 ml @ 100 mls/hr Q8H IV 03/02/16 16:30 03/03/16 01:05 03/02/16 17:53 100 MLS/HR Metoclopramide HCl 10 mg 10 mg Q8 IV. 03/02/16 22:00 03/03/16 21:59 Acetaminophen/ Empty Bag (Ofirmev Iv/ Empty Iv Bag 100ml) 100 ml @ 400 mls/hr Q8H IV 03/02/16 17:00 04/01/16 16:59 03/02/16 17:53 400 MLS/HR
[2016-03-02] MEDS: DOCUSATE SODIUM 100 MG CAP PO SCH (20:34)
--- NOTE | 2016-03-02 20:39 | OPERATIVE REPORT ---
DATE OF OPERATION: 03/02/2016 PREOPERATIVE DIAGNOSIS: Small cell lung carcinoma with loculated right pleural effusion. POSTOPERATIVE DIAGNOSIS: Same. PROCEDURE: 1. Right thoracoscopy with limited pleurectomy and drainage of pleural effusion. 2. Talc pleurodesis. SURGEON: Dr. Butts. ELECTRIC REFRIGERATOR PREPARER: Guicho Craft PA-C. ANESTHESIA: General anesthesia endotracheal intubation with a single lumen endotracheal tube. SPECIFICS OF PROCEDURE: Merlyn Faustin is a 75-year-old female who has been found to have a small cell lung carcinoma with a loculated right pleural effusion. She was tapped and felt better, but the fluid quickly recurred. I discussed this case with Dr. Hay and we felt that given the loculations it will be best to perform a thoracoscopy and breakup the loculations to drain this. I also felt that a decortication might be necessary. On 03/02/2016, I took the patient to the operating room and did a right thoracoscopy. There were thick loculations and I drained well over a liter of fluid and broke these loculations up. I also do a limited pleurectomy by removing parietal pleura over about 50% of the chest wall. I also sent off some pleural biopsies. She tolerated this very well. I left 2 chest tubes, a 24-Gu[place]ian straight chest tube and 28-Guamanian right angle chest tube to drain both superiorly and inferiorly. She tolerated it well. PROCEDURE: The patient brought to the operating room and laid in supine position. General anesthesia induced and endotracheal intubation with a single lumen tube. The patient was placed in left lateral decubitus position. No Syed catheter was placed. An arterial line was placed. We prepped and draped the right chest wall and I made a 5 mm incision at the tip of the scapula and put a 5 mm scope and upon entering, there was a large amount of fluid. I drained this out with a long sucker tip and drained about a liter of fluid and then insufflated and carbon dioxide was placed. Upon placing my 0 degree 5 mm scope, it could be seen that there were adhesions to the chest wall, which were rather marked. I placed a 10 mm port at about the seventh interspace anteriorly and then at about the eighth interspace. In the anterior axillary line, I made another 5 mm incision. Since I was able to break down adhesions and take that down sharply. After took down these adhesions between the middle lobe and the chest wall of the upper lobe and chest wall, we were able to move the lung around it appeared to be distensile to me. As I stated, we drained well over a liter of fluid. There were obvious implants and I biopsied several of these. I performed a pleurectomy by grabbing part of the parietal pleura, removing about 50% of it in the area of the chest wall and suctioned out the all remaining blood and fluid. I then placed a 24-Guamanian chest tube through the anterior thoracoscopy port. This was sutured in place with heavy silk suture. I then placed a small incision near that area and placed a second chest tube a 28-Guamanian right angle chest tube which we directed towards the diaphragmatic gutter. This was held in place with heavy silk suture. The camera was removed as was the 5 mm port and we then ended up using 3-0 Vicryl and closed the skin of both incisions in running subcuticular fashion. She tolerated it quite well and was extubated in the room. I attest to the content of the Intraoperative Record and any orders documented therein. Any exceptio ns are noted below.
[2016-03-02] MEDS: METOCLOPRAMIDE HCL INJ 5 MG/ML 2 ML VIAL IV. SCH (21:18)
[2016-03-03] VITALS (11 sets, daily range): BP systolic 92–117; BP diastolic 54–66; PULSE 67–77; TEMP 36.6–37; O2SAT 89–94
[2016-03-03] MEDS: CEFAZOLIN IV 2,000 MG in DEXTROSE 5% 50ML 50 ML IV SCH (01:18)
[2016-03-03] MEDS: TRAMADOL HCL 50 MG TAB PO PRN ×3 (02:15→17:20)
[2016-03-03] MEDS: ACETAMINOPHEN IV 1,000 MG in EMPTY BAG 0 ML IV SCH ×3 (02:15→17:14)
[2016-03-03] MEDS: METOCLOPRAMIDE HCL INJ 5 MG/ML 2 ML VIAL IV. SCH ×2 (06:38→14:19)
[2016-03-03] MEDS: LEVOTHYROXINE 137 MCG TAB PO SCH (06:38)
--- NOTE | 2016-03-03 07:32 | DIAGNOSTIC IMAGING REPORT ---
CHEST ONE VIEW PORTABLE HISTORY: s/p talc pleurodesis COMPARISON: Chest 03/02/2016. FINDINGS: Linear density at the left lung base persist and favor subsegmental atelectasis. Otherwise, the left lung is clear. The heart is mildly enlarged. This remains unchanged. Progressive interstitial thickening within the right lung. Patchy right lung airspace opacities persist. One of the right-sided chest tubes has been pulled back. The tip no longer resides within the right pleural cavity and appears to terminate in the right lateral chest wall soft tissues. Right chest wall subcutaneous emphysema is again noted. The second chest tube resides within the right lung base. Lucency at the base of the right hemithorax may be due to a small hydropneumothorax. IMPRESSION: 1. One of the right-sided chest tubes has been pulled back and now appears to reside within the right chest wall soft tissues and not the pleural space. 2. The second right-sided chest tube is located at the right lung base. 3. Small amount of lucency and a small amount of fluid within the right lung base favors a small hydropneumothorax. 3. Slight progression of the right lung interstitial thickening. Right lung patchy airspace opacities remain unchanged. Electronically signed by: Devang Herring M.D. 03/03/2016 7:30 AM Dictated Date/Time: 03/03/2016 7:27 AM
[2016-03-03 07:39] LABS: HEMATOCRIT 36.2 % (37-47); MEAN CELL VOLUME 98.6 fL (80-100); MEAN CORPUSCULAR HEMOGLOBIN 30.8 pg (25-34); MEAN CORPUSCULAR HGB CONC 31.2 g/dl (32-36); MEAN PLATELET VOLUME 9.2 fL (7.4-10.4); PLATELET COUNT 165 K/uL (130-400); RED BLOOD COUNT 3.67 M/uL (4.2-5.4); WHITE BLOOD COUNT 14.76 K/uL (4.8-10.8)
[2016-03-03 08:12] LABS: BUN/CREATININE RATIO 15.2 (10-20); CALCIUM 8.6 mg/dl (8.5-10.1); CREATININE 1.3 mg/dl (0.60-1.20); POTASSIUM 4.6 mmol/L (3.5-5.1)
[2016-03-03] MEDS: INSULIN ASPART 100 UNITS/ML 3 ML PEN SC SCH ×4 (08:44→21:35)
[2016-03-03] MEDS: SENNA 8.6 MG TAB PO SCH (08:45)
[2016-03-03] MEDS: LORATADINE 10 MG TAB PO SCH (08:46)
[2016-03-03] MEDS: ASPIRIN 81 MG ECTAB PO SCH (08:46)
[2016-03-03] MEDS: AMLODIPINE BESYLATE 5 MG TAB PO SCH (08:46)
[2016-03-03] MEDS: DOCUSATE SODIUM 100 MG CAP PO SCH ×2 (08:47→21:34)
[2016-03-03] MEDS: FLUTICASONE/SALMETEROL 250/50 (ADVAIR) 14 PUFF/1 INHALER INH SCH ×2 (08:47→21:33)
[2016-03-03] MEDS: ROSUVASTATIN CALCIUM 20 MG TAB PO SCH (08:47)
[2016-03-03] MEDS: SERTRALINE HCL 50 MG TAB PO SCH (08:47)
[2016-03-03] MEDS: CARVEDILOL 25 MG TAB PO SCH (08:47)
[2016-03-03] MEDS: FLUTICASONE PROPIONATE NA SPR 16 GM BTL NAE SCH (08:54)
--- NOTE | 2016-03-03 10:09 | Anesthesiology Progress Note ---
Anesthesia Post Op Note Date & Time Mar 03, 2016 at 10:09 Vital Signs Pain Intensity: 8.0 Vital Signs Past 12 Hours Date Time Temp Pulse Resp B/P Pulse Ox O2 Delivery O2 Flow Rate FiO2 03/03/16 08:00 92 Nasal Cannula 4.0 03/03/16 07:23 37.0 72 18 117/66 92 Nasal Cannula 5.0 03/03/16 04:56 37.0 69 20 104/56 94 Nasal Cannula 4.0 03/03/16 04:00 Nasal Cannula 5.0 03/03/16 02:00 36.7 77 16 110/65 94 Nasal Cannula 5.0 03/03/16 00:36 36.7 73 18 102/57 89 Nasal Cannula 2.0 03/03/16 00:00 Nasal Cannula 5.0 Notes Mental Status: alert / awake / arousable, participated in evaluation Pt Amnestic to Procedure: Yes Nausea / Vomiting: adequately controlled Pain: adequately controlled Airway Patency, RR, SpO2: stable & adequate BP & HR: stable & adequate Hydration State: stable & adequate Anesthetic Complications: no major complications apparent
[2016-03-03] MEDS: HYDROmorphone INJ 0.5 MG/0.5 ML SYR IV PRN (10:35)
[2016-03-03] MEDS: POLYETHYLENE (MIRALAX) 17 GM PACK PO PRN (16:42)
--- NOTE | 2016-03-03 17:50 | SURGERY PROGRESS NOTE ---
DATE: 03/03/2016 Ms. Faustin was seen today on 03/03/2016, one day after thoracoscopic drainage of her malignant right pleural effusion with a partial pleurectomy and breaking up of the loculations with a talc pleurodesis. I think her x-ray looks very good. She has 2 chest tubes in. A right angle chest tube and a straight tube. I removed the right angle chest tube as it had pulled back some and she really did not drain much in the way of fluid. I left the more superior chest tube in place. Her sites were clean. We placed an occlusive antibiotic dressing over this chest tube site. We will check a chest x-ray in the morning. I have encouraged the patient to get up and ambulate. I also do not see the need for further monitoring.
--- NOTE | 2016-03-03 18:38 | Progress Note ---
Medicine Progress Note Date & Time of Visit: Mar 03, 2016 at 18:32. Subjective Patient seen and examined. Denies pain. Breathing stable. Objective Last 8 Hrs Date Time Temp Pulse Resp B/P Pulse Ox O2 Delivery O2 Flow Rate FiO2 03/03/16 16:00 92 Nasal Cannula 3.0 03/03/16 14:52 36.8 67 16 115/64 92 Nasal Cannula 5.0 03/03/16 12:00 94 Nasal Cannula 3.0 03/03/16 11:23 37.0 68 18 92/54 92 Nasal Cannula 5.0 Physical Exam: General-awake; alert; NAD Eyes-EOMI; no scleral icterus Neck-no stridor; trachea midline Lungs-CTA on the left; diminished breath sounds on right Heart-RRR; no m/r/g Abdomen-soft; NTND; nBS Chest-chest tubes in place; surgical bandage c/d/i Neuro-no gross focal deficits Laboratory Results: Last 24 Hours Test 03/02/16 21:12 03/03/16 07:00 03/03/16 08:01 03/03/16 11:27 Bedside Glucose 122 mg/dl 134 mg/dl 183 mg/dl White Blood Count 14.76 K/uL Red Blood Count 3.67 M/uL Hemoglobin 11.3 g/dL Hematocrit 36.2 % Mean Corpuscular Volume 98.6 fL Mean Corpuscular Hemoglobin 30.8 pg Mean Corpuscular Hemoglobin Concent 31.2 g/dl RDW Standard Deviation 49.4 fL RDW Coefficient of Variation 13.8 % Platelet Count 165 K/uL Mean Platelet Volume 9.2 fL Sodium Level 138 mmol/L Potassium Level 4.6 mmol/L Chloride Level 99 mmol/L Carbon Dioxide Level 28 mmol/L Anion Gap 11.0 mmol/L Blood Urea Nitrogen 20 mg/dl Creatinine 1.30 mg/dl Est Creatinine Clear Calc Drug Dose 35.5 ml/min Estimated GFR () 46.2 Estimated GFR (Non- 39.8 BUN/Creatinine Ratio 15.2 Random Glucose 128 mg/dl Calcium Level 8.6 mg/dl Test 03/03/16 16:43 Bedside Glucose 143 mg/dl Assessment & Plan Acute on chronic hypoxemic respiratory failure Likely secondary to right pleural effusion Continue oxygen supplement Thoracic surgery consulted VATS and pleurodesis 1/24/17 Pulmonary consulted Small Cell Lung Cancer Stage IV Oncology consulted Recommended palliative treatment, to start as outpatient Right Bundle Branch block Asymptomatic Continue rosuvastatin, aspirin; hold carvedilol given low-normal blood pressures TTE unremarkable COPD Continue Advair, duoneb and oxygen supplement Hypothyroidism Continue levothyroxine HTN Hold amlodipine, carvedilol, hydralazine given low-normal blood pressures DVT prophylaxis with SCD's. Consultants: Thoracic surgery Oncology Pulmonary Procedures: ECHO: The left ventricle is normal in size. * There is mild concentric left ventricular hypertrophy. * The left ventricular wall motion is normal. * Left ventricular systolic function is normal. * Ejection Fraction = 55-60%. * The left atrium is moderately dilated. * Aortic valve sclerosis mild, without significant aortic valvular stenosis. * Mild aortic regurgitation. * There is mild mitral regurgitation. * There is mild to moderate tricuspid regurgitation. * Right ventricular systolic pressure is elevated at 40-50mmHg. * There is no pericardial effusion. CT chest 1. No CT evidence of acute pulmonary embolism 2. Moderate right pleural effusion with associated right middle lobe and lower lobe atelectasis 3. Persistent right hilar and mediastinal mass/adenopathy. There is secondary narrowing of the right upper lobe pulmonary artery. This mass/adenopathy is almost certainly neoplastic. Again pulmonary consultation for biopsy is recommended. CT a/p 1. No evidence of bowel obstruction. No evidence of free air 2. No acute inflammatory changes within the abdomen or pelvis 3. Pathologic mediastinal and right hilar adenopathy 4. Moderate right pleural effusion with right middle lobe and right lower lobe atelectatic change 5. Small pericardial effusion. Coronary artery calcifications. MRI brain 1. No evidence of metastatic disease. 2. No acute intracranial findings. 3. 1.5 x 0.4 x 1.4 cm left parafalcine lesion suggestive of a small meningioma. Bone scan No evidence of skeletal metastatic disease. Current Inpatient Medications: Current Inpatient Medications Medications (Trade) Dose Ordered Sig/Gilbert Route Start Time Stop Time Status Last Admin Dose Admin Albuterol/ Ipratropium (Duoneb) 3 ml Q2H PRN INH 02/27/16 19:45 03/28/16 19:44 03/02/16 08:30 3 ML Enoxaparin Sodium (Lovenox Inj) 40 mg Q24H SC 02/27/16 22:00 03/28/16 21:59 Future Hold 02/29/16 20:52 40 MG Acetaminophen (Tylenol Tab) 650 mg Q4H PRN PO 02/27/16 21:15 03/28/16 21:14 02/27/16 22:07 650 MG Amlodipine Besylate (Norvasc Tab) 2.5 mg QAM PO 02/28/16 09:00 03/29/16 08:59 Future Hold 03/03/16 08:46 2.5 MG Aspirin (Ecotrin Tab) 81 mg DAILY PO 02/28/16 09:00 03/29/16 08:59 03/03/16 08:46 81 MG Carvedilol (Coreg Tab) 50 mg BID PO 02/28/16 09:00 03/29/16 08:59 Future Hold 03/03/16 08:47 50 MG Salmeterol Xinafoate/ Fluticasone (Advair Diskus 250/50 Inh) 1 puff BID INH 02/28/16 09:00 03/29/16 08:59 03/03/16 08:47 1 PUFF Fluticasone Propionate (Flonase Nasal [place]) DAILY LATRICE 02/28/16 09:00 03/29/16 08:59 03/03/16 08:54 2 SPRAYS Hydralazine HCl (Apresoline Tab) 75 mg TID PO 02/28/16 09:00 03/29/16 08:59 Future Hold 03/03/16 08:46 75 MG Levothyroxine Sodium (Synthroid Tab) 137 mcg DAILYBB PO 02/28/16 06:30 03/29/16 06:29 03/03/16 06:38 137 MCG Loratadine (Claritin Tab) 10 mg DAILY PO 02/28/16 09:00 03/29/16 08:59 03/03/16 08:46 10 MG Sertraline HCl (Zoloft Tab) 25 mg DAILY PO 02/28/16 09:00 03/29/16 08:59 03/03/16 08:47 25 MG Rosuvastatin Calcium (Crestor Tab) 40 mg QAM PO 02/28/16 09:00 03/29/16 08:59 03/03/16 08:47 40 MG Insulin Aspart (novoLOG ASPART) SLIDING SCALE If C... ACHS SC 02/28/16 06:30 2/20/17 06:29 03/03/16 13:11 1 UNITS Glucose (Glucose 40% Gel) 15-30 GRAMS 15 GRAMS... UD PRN PO 02/27/16 23:45 03/28/16 23:44 Glucose (Glucose Chew Tab) 4-8 Tablets 4 Tabl... UD PRN PO 02/27/16 23:45 03/28/16 23:44 Dextrose (Dextrose 50% 50ML Syringe) 25-50ML OF 50% DW IV FOR... UD PRN IV 02/27/16 23:45 03/28/16 23:44 Glucagon (Glucagon Inj) 1 mg UD PRN SQ 02/27/16 23:45 03/28/16 23:44 Hydromorphone HCl (Dilaudid Inj) 0.5 mg Q3H PRN IV 02/27/16 23:45 03/12/16 23:44 03/03/16 10:35 0.5 MG Tramadol HCl (Ultram Tab) 25 mg Q6H PRN PO 02/27/16 23:45 03/28/16 23:44 03/03/16 17:20 25 MG Senna (Senokot Tab) 17.2 mg QAM PO 03/03/16 09:00 04/02/16 08:59 03/03/16 08:45 17.2 MG Polyethylene (Miralax Powder Packet) 17 gm DAILY PRN PO 03/02/16 14:15 04/01/16 14:14 03/03/16 16:42 17 GM Ondansetron HCl (Zofran Inj) 4 mg Q4H PRN IV 03/02/16 15:45 04/01/16 15:44 Docusate Sodium (coLACE CAP) 100 mg BID PO 03/02/16 21:00 04/01/16 20:59 03/03/16 08:47 100 MG Metoclopramide HCl 10 mg 10 mg Q8 IV. 03/02/16 22:00 03/03/16 21:59 03/03/16 14:19 10 MG Acetaminophen/ Empty Bag (Ofirmev Iv/ Empty Iv Bag 100ml) 100 ml @ 400 mls/hr Q8H IV 03/02/16 17:00 04/01/16 16:59 03/03/16 17:14 400 MLS/HR
[2016-03-04] VITALS (8 sets, daily range): BP systolic 103–120; BP diastolic 62–77; PULSE 61–79; TEMP 36.5–37.1; O2SAT 90–95
[2016-03-04] MEDS: ACETAMINOPHEN IV 1,000 MG in EMPTY BAG 0 ML IV SCH ×3 (01:01→17:18)
[2016-03-04] MEDS: INSULIN ASPART 100 UNITS/ML 3 ML PEN SC SCH ×4 (06:30→20:58)
[2016-03-04] MEDS: LEVOTHYROXINE 137 MCG TAB PO SCH (06:44)
--- NOTE | 2016-03-04 07:46 | DIAGNOSTIC IMAGING REPORT ---
CHEST ONE VIEW PORTABLE HISTORY: Follow-up pleural effusion COMPARISON: Chest 03/03/2016. FINDINGS: There is now a single right basilar chest tube which is unchanged in position. Small to moderate right pleural effusion and right lower lobe airspace opacities have progressed. The left lung remains essentially clear. The heart is stable in size. Right chest wall subcutaneous emphysema is again noted. No definite pneumothorax identified. IMPRESSION: Progression of the small to moderate right pleural effusion and right lower lobe airspace opacities. Electronically signed by: Devang Herring M.D. 03/04/2016 7:45 AM Dictated Date/Time: 03/04/2016 7:44 AM
[2016-03-04 08:17] LABS: HEMATOCRIT 32.3 % (37-47); MEAN CELL VOLUME 99.1 fL (80-100); MEAN CORPUSCULAR HGB CONC 31.3 g/dl (32-36); MEAN PLATELET VOLUME 9.2 fL (7.4-10.4); PLATELET COUNT 159 K/uL (130-400); RED BLOOD COUNT 3.26 M/uL (4.2-5.4); WHITE BLOOD COUNT 17.78 K/uL (4.8-10.8)
[2016-03-04] MEDS: POLYETHYLENE (MIRALAX) 17 GM PACK PO PRN (08:38)
[2016-03-04] MEDS: HYDROmorphone INJ 0.5 MG/0.5 ML SYR IV PRN (08:40)
[2016-03-04] MEDS: FLUTICASONE/SALMETEROL 250/50 (ADVAIR) 14 PUFF/1 INHALER INH SCH ×2 (08:40→20:50)
[2016-03-04 08:43] LABS: BUN/CREATININE RATIO 20.9 (10-20); CALCIUM 8.7 mg/dl (8.5-10.1); CREATININE 1.6 mg/dl (0.60-1.20); POTASSIUM 4.8 mmol/L (3.5-5.1)
[2016-03-04] MEDS: FLUTICASONE PROPIONATE NA SPR 16 GM BTL NAE SCH (08:43)
[2016-03-04] MEDS: DOCUSATE SODIUM 100 MG CAP PO SCH ×2 (08:44→20:50)
[2016-03-04] MEDS: SENNA 8.6 MG TAB PO SCH ×2 (08:44→21:00)
[2016-03-04] MEDS: LORATADINE 10 MG TAB PO SCH (08:44)
[2016-03-04] MEDS: ASPIRIN 81 MG ECTAB PO SCH (08:45)
[2016-03-04] MEDS: SERTRALINE HCL 50 MG TAB PO SCH (08:45)
[2016-03-04] MEDS: ROSUVASTATIN CALCIUM 20 MG TAB PO SCH (08:45)
--- NOTE | 2016-03-04 10:08 | SURGERY PROGRESS NOTE ---
DATE: 03/04/2016 HISTORY OF PRESENT ILLNESS: Ms. Faustin is now 2 days status post a thoracoscopic pleurectomy and drainage of her malignant pleural effusion. All of our implants that we had samples we sent off from her biopsies from 2 days ago showed metastatic nonsmall cell lung carcinoma. She actually looks pretty good today. I am a bit disappointed in her x-ray. We pulled her basilar chest tube out yesterday has drained very little and it shows that there is some increasing opacification of bed in the right base. I do not think she is making much fluid and was not draining very much from her upper chest tube. I would like for PT and OT to ambulate her and to work on her pulmonary toilet and we will repeat a film in the morning. We are draining very little from his chest tube. However, I am concerned that she may be collecting a small effusion in that base or is developing consolidation. NEEMAD
--- NOTE | 2016-03-04 10:57 | Pulmonology Progress Note ---
Pulmonary Progress Note Date of Service Mar 04, 2016. Attending Dr. Hancock Subjective Feeling improved today. No further episodes of acute dyspnea post thoracotomy. Has been ambulating about room tentatively without respiratory discomfort. Denies increased cough, dyspnea, or wheeze. Pain is controlled. Still no bowl movement since admission. Objective 75-yo female admitted 02/27/16 with recurrent right sided malignant effusion. PMHx: recent admission with right pleural effusion s/p evacuation with cytology + metastatic small cell carcinoma with progressive mediastinal and hilar adenopathy on CT, O2-dependant COPD, hypothyroid, HTN, DM, pulmonary HTN, carotic stenosis, PVC. Patient admitted to [facility] 02/27/16 via ER with progressive dyspnea. CTA: recurrence of right sided pleural effusion (drained 1-week prior) with associated atelectasis and persistent mediastinal and hilar adenopathy. Echocardiogram 02/28/16: EF 55-60%, grade I diastolic dysfunction, with mild MR/ TR and RVS: 40-50mmHg. CT A/P and MRI brain: no mets. Bone scan 03/01: negative. Pulmonary and surgery consulted and patient elected thoracotomy with talk pleurodesis 03/02/[address] Butts. She tolerated this procedure well. Pathology again consistent with metastatic small cell carcinoma. with upper chest tube removed 03/03/16 but noted bump in Cr - post procedure. Today: -91-95% - 3.5LPM - Afebrile, HD stable - PT/OT consulted - WBC: 17.78, Hgb/Hct: 10.1/32.3, plts: 159, Cr: 1.6 - CXR continues to report patchy airspace opacities on the right. Physical Exam: Constitutional: Well developed elderly female sitting in chair at bedside. No acute distress Head: + facial symmetry Eyes: EOMi, PERRLA, no injection. Corrective lenses Mouth: Dentures in place. Moist mucous membranes. No erythema or exudate Respiratory: Non-labored respirations. No cough on exam. Chest tube x [address] Decreased BS on the right with scant crackles. Left improved aeration without wheeze, rales or rhonchi. CV: Regular rate and rhythm, II/ systolic murmur. Warm and perfused peripherally MSK/Extremities: Moving UE/LEs symmetrically. Trace, non-pitting peripheral edema with varicosities. Neurologic: Alert, oriented to person and place. Cooperative and answering questions appropriately. Assessment & Plan 75-yo female with O2-dependent COPD and recurrent right sided pleural effusion: 1. COPD controlled on Advair and Duo-nebs: continue at this time 2. Recurrent malignant [Small Cell]: with clinical improvement post pleurodesis 03/02 - CT remaining 3. Constipation: escalate regimen with enema to relieve abdominal pressure 4. ALAINA: hannah oral hydration, consider small 250mL bolus. Avoid - nephrotoxins. Follow creatinine until normalized. 5. Elevated WBCs and radiographic opacities - likely reactive as patient is clinically stable at this time but observe closely for signs of decompensation Data Medications: Current Inpatient Medications Medications (Trade) Dose Ordered Sig/Gilbert Route Start Time Stop Time Status Last Admin Dose Admin Albuterol/ Ipratropium (Duoneb) 3 ml Q2H PRN INH 02/27/16 19:45 03/28/16 19:44 03/02/16 08:30 3 ML Enoxaparin Sodium (Lovenox Inj) 40 mg Q24H SC 02/27/16 22:00 03/28/16 21:59 Future Hold 02/29/16 20:52 40 MG Acetaminophen (Tylenol Tab) 650 mg Q4H PRN PO 02/27/16 21:15 03/28/16 21:14 02/27/16 22:07 650 MG Amlodipine Besylate (Norvasc Tab) 2.5 mg QAM PO 02/28/16 09:00 03/29/16 08:59 Future Hold 03/03/16 08:46 2.5 MG Aspirin (Ecotrin Tab) 81 mg DAILY PO 02/28/16 09:00 03/29/16 08:59 03/04/16 08:45 81 MG Carvedilol (Coreg Tab) 50 mg BID PO 02/28/16 09:00 03/29/16 08:59 Future Hold 03/03/16 08:47 50 MG Salmeterol Xinafoate/ Fluticasone (Advair Diskus 250/50 Inh) 1 puff BID INH 02/28/16 09:00 03/29/16 08:59 03/04/16 08:40 1 PUFF Fluticasone Propionate (Flonase Nasal [place]) DAILY LATRICE 02/28/16 09:00 03/29/16 08:59 03/04/16 08:43 1 SPRAYS Hydralazine HCl (Apresoline Tab) 75 mg TID PO 02/28/16 09:00 03/29/16 08:59 Future Hold 03/03/16 08:46 75 MG Levothyroxine Sodium (Synthroid Tab) 137 mcg DAILYBB PO 02/28/16 06:30 03/29/16 06:29 03/04/16 06:44 137 MCG Loratadine (Claritin Tab) 10 mg DAILY PO 02/28/16 09:00 03/29/16 08:59 03/04/16 08:44 10 MG Sertraline HCl (Zoloft Tab) 25 mg DAILY PO 02/28/16 09:00 03/29/16 08:59 03/04/16 08:45 25 MG Rosuvastatin Calcium (Crestor Tab) 40 mg QAM PO 02/28/16 09:00 03/29/16 08:59 03/04/16 08:45 40 MG Insulin Aspart (novoLOG ASPART) SLIDING SCALE If C... ACHS SC 02/28/16 06:30 03/29/16 06:29 03/03/16 13:11 1 UNITS Glucose (Glucose 40% Gel) 15-30 GRAMS 15 GRAMS... UD PRN PO 02/27/16 23:45 03/28/16 23:44 Glucose (Glucose Chew Tab) 4-8 Tablets 4 Tabl... UD PRN PO 02/27/16 23:45 03/28/16 23:44 Dextrose (Dextrose 50% 50ML Syringe) 25-50ML OF 50% DW IV FOR... UD PRN IV 02/27/16 23:45 03/28/16 23:44 Glucagon (Glucagon Inj) 1 mg UD PRN SQ 02/27/16 23:45 03/28/16 23:44 Hydromorphone HCl (Dilaudid Inj) 0.5 mg Q3H PRN IV 02/27/16 23:45 03/12/16 23:44 03/04/16 08:40 0.5 MG Tramadol HCl (Ultram Tab) 25 mg Q6H PRN PO 02/27/16 23:45 03/28/16 23:44 03/03/16 17:20 25 MG Senna (Senokot Tab) 17.2 mg QAM PO 03/03/16 09:00 04/02/16 08:59 03/04/16 08:44 17.2 MG Polyethylene (Miralax Powder Packet) 17 gm DAILY PRN PO 03/02/16 14:15 04/01/16 14:14 03/04/16 08:38 17 GM Ondansetron HCl (Zofran Inj) 4 mg Q4H PRN IV 03/02/16 15:45 04/01/16 15:44 Docusate Sodium 100 mg 100 mg BID PO 03/02/16 21:00 04/01/16 20:59 03/04/16 08:44 100 MG Acetaminophen/ Empty Bag (Ofirmev Iv/ Empty Iv Bag 100ml) 100 ml @ 400 mls/hr Q8H IV 03/02/16 17:00 04/01/16 16:59 03/04/16 08:42 400 MLS/HR I & O: 24-Hour Column 03/04/16 08:00 Intake Total 1030 ml Output Total 223 ml Balance 807 ml Vital Signs: Date Time Temp Pulse Resp B/P Pulse Ox O2 Delivery O2 Flow Rate FiO2 03/04/16 07:08 36.7 78 20 110/66 91 Nasal Cannula 3.5 03/04/16 03:59 36.5 68 20 103/65 95 Nasal Cannula 3.5 03/04/16 00:00 93 Nasal Cannula 3.5 03/03/16 23:18 36.6 69 20 102/64 93 Nasal Cannula 3.5 03/03/16 20:05 36.8 76 20 106/65 91 Nasal Cannula 3.5 03/03/16 16:00 92 Nasal Cannula 3.0 03/03/16 14:52 36.8 67 16 115/64 92 Nasal Cannula 5.0 03/03/16 12:00 94 Nasal Cannula 3.0 03/03/16 11:23 37.0 68 18 92/54 92 Nasal Cannula 5.0 Laboratory Results: Last 24 Hours Test 03/03/16 11:27 03/03/16 16:43 03/03/16 20:18 03/04/16 07:24 Bedside Glucose 183 mg/dl 143 mg/dl 148 mg/dl 137 mg/dl Test 03/04/16 07:48 White Blood Count 17.78 K/uL Red Blood Count 3.26 M/uL Hemoglobin 10.1 g/dL Hematocrit 32.3 % Mean Corpuscular Volume 99.1 fL Mean Corpuscular Hemoglobin 31.0 pg Mean Corpuscular Hemoglobin Concent 31.3 g/dl RDW Standard Deviation 49.3 fL RDW Coefficient of Variation 13.7 % Platelet Count 159 K/uL Mean Platelet Volume 9.2 fL Sodium Level 135 mmol/L Potassium Level 4.8 mmol/L Chloride Level 95 mmol/L Carbon Dioxide Level 31 mmol/L Anion Gap 9.0 mmol/L Blood Urea Nitrogen 34 mg/dl Creatinine 1.60 mg/dl Est Creatinine Clear Calc Drug Dose 29.0 ml/min Estimated GFR () 35.9 Estimated GFR (Non- 31.0 BUN/Creatinine Ratio 20.9 Random Glucose 129 mg/dl Calcium Level 8.7 mg/dl
--- NOTE | 2016-03-04 14:36 | DIAGNOSTIC IMAGING REPORT ---
CHEST ONE VIEW PORTABLE CLINICAL HISTORY: Hypoxia. COMPARISON STUDY: Chest radiograph March 04, 2016 at 5:17 AM. FINDINGS: A right basilar pleural catheter remains in place. Right basilar opacity has progressed. There are nodular opacities within the right midlung. These could reflect fissural fluid. Gas within the right chest wall is again noted. The small right pleural effusion is likely present. IMPRESSION: Persistent right mid and lower lung airspace opacity which could reflect atelectasis, consolidation or loculated pleural fluid. Right basilar pleural catheter in place. No significant change in the suspected small right hydropneumothorax. Electronically signed by: Joon Koehler M.D. 03/04/2016 2:35 PM Dictated Date/Time: 03/04/2016 2:30 PM
[2016-03-04] MEDS ORDERED: NURSING VERBAL MED ORDER ONE ×2 (17:15→18:30)
[2016-03-04] MEDS ORDERED: SOD PHOSPHATE/SOD BIPHOSPHATE ENEMA 132 ML BTL ONE (17:22)
[2016-03-04] MEDS ORDERED: SOD PHOSPHATE/SOD BIPHOSPHATE ENEMA 132 ML BTL PR PRN (17:45)
[2016-03-04] MEDS: SODIUM CHLORIDE 0.9% 1000ML 1,000 ML IV SCH (17:45)
[2016-03-04] MEDS ORDERED: SOAP SUDS ENEMA PR PRN (18:30)
[2016-03-04] MEDS ORDERED: LACTULOSE SYRUP 30 GM/45 ML UDP PO PRN (20:45)
[2016-03-04] MEDS: TRAMADOL HCL 50 MG TAB PO PRN (20:51)
--- NOTE | 2016-03-04 20:54 | Progress Note ---
Medicine Progress Note Date & Time of Visit: Mar 04, 2016 at 20:38. Subjective Patient seen and examined. Family present at bedside and updated. Still constipated. Objective Last 8 Hrs Date Time Temp Pulse Resp B/P Pulse Ox O2 Delivery O2 Flow Rate FiO2 03/04/16 16:00 93 Nasal Cannula 4.0 03/04/16 15:10 36.8 79 18 112/62 92 Nasal Cannula 4.0 Physical Exam: General-awake; alert; NAD Eyes-EOMI; no scleral icterus Neck-no stridor; trachea midline Lungs-CTA on the left; diminished breath sounds on right Heart-RRR; no m/r/g Abdomen-soft; NTND; nBS Chest-chest tubes in place; surgical bandage c/d/i Neuro-no gross focal deficits Laboratory Results: Last 24 Hours Test 03/04/16 07:24 03/04/16 07:48 03/04/16 11:39 03/04/16 16:17 Bedside Glucose 137 mg/dl 194 mg/dl 130 mg/dl White Blood Count 17.78 K/uL Red Blood Count 3.26 M/uL Hemoglobin 10.1 g/dL Hematocrit 32.3 % Mean Corpuscular Volume 99.1 fL Mean Corpuscular Hemoglobin 31.0 pg Mean Corpuscular Hemoglobin Concent 31.3 g/dl RDW Standard Deviation 49.3 fL RDW Coefficient of Variation 13.7 % Platelet Count 159 K/uL Mean Platelet Volume 9.2 fL Sodium Level 135 mmol/L Potassium Level 4.8 mmol/L Chloride Level 95 mmol/L Carbon Dioxide Level 31 mmol/L Anion Gap 9.0 mmol/L Blood Urea Nitrogen 34 mg/dl Creatinine 1.60 mg/dl Est Creatinine Clear Calc Drug Dose 29.0 ml/min Estimated GFR () 35.9 Estimated GFR (Non- 31.0 BUN/Creatinine Ratio 20.9 Random Glucose 129 mg/dl Calcium Level 8.7 mg/dl Date/Time Source Procedure Growth Status 03/04/16 18:10 Blood Blood Culture Pending Received 03/04/16 18:05 Blood Blood Culture Pending Received Assessment & Plan Acute on chronic hypoxemic respiratory failure Likely secondary to right pleural effusion Continue oxygen supplement Thoracic surgery consulted VATS and pleurodesis 03/02/16 Pulmonary consulted Leukocytosis Afebrile Nursing notes foul odor to urine Urinalysis and urine culture pending Blood cultures pending Constipation Continue docusate, senna, Miralax Enema PRN ALAINA Possibly due to previous low blood pressures, decreased PO intake Gentle IVF's Avoid nephrotoxins HTN Hold amlodipine, carvedilol, hydralazine given low-normal blood pressures Small Cell Lung Cancer Stage IV Oncology consulted Recommended palliative treatment, to start as outpatient Right Bundle Branch block Asymptomatic Continue rosuvastatin, aspirin; hold carvedilol given low-normal blood pressures TTE unremarkable COPD Continue Advair, duoneb and oxygen supplement Hypothyroidism Continue levothyroxine DVT prophylaxis with SCD's. Consultants: Thoracic surgery Oncology Pulmonary Procedures: ECHO: The left ventricle is normal in size. * There is mild concentric left ventricular hypertrophy. * The left ventricular wall motion is normal. * Left ventricular systolic function is normal. * Ejection Fraction = 55-60%. * The left atrium is moderately dilated. * Aortic valve sclerosis mild, without significant aortic valvular stenosis. * Mild aortic regurgitation. * There is mild mitral regurgitation. * There is mild to moderate tricuspid regurgitation. * Right ventricular systolic pressure is elevated at 40-50mmHg. * There is no pericardial effusion. CT chest 1. No CT evidence of acute pulmonary embolism 2. Moderate right pleural effusion with associated right middle lobe and lower lobe atelectasis 3. Persistent right hilar and mediastinal mass/adenopathy. There is secondary narrowing of the right upper lobe pulmonary artery. This mass/adenopathy is almost certainly neoplastic. Again pulmonary consultation for biopsy is recommended. CT a/p 1. No evidence of bowel obstruction. No evidence of free air 2. No acute inflammatory changes within the abdomen or pelvis 3. Pathologic mediastinal and right hilar adenopathy 4. Moderate right pleural effusion with right middle lobe and right lower lobe atelectatic change 5. Small pericardial effusion. Coronary artery calcifications. MRI brain 1. No evidence of metastatic disease. 2. No acute intracranial findings. 3. 1.5 x 0.4 x 1.4 cm left parafalcine lesion suggestive of a small meningioma. Bone scan No evidence of skeletal metastatic disease. Current Inpatient Medications: Current Inpatient Medications Medications (Trade) Dose Ordered Sig/Gilbert Route Start Time Stop Time Status Last Admin Dose Admin Albuterol/ Ipratropium (Duoneb) 3 ml Q2H PRN INH 02/27/16 19:45 03/28/16 19:44 03/02/16 08:30 3 ML Enoxaparin Sodium (Lovenox Inj) 40 mg Q24H SC 02/27/16 22:00 03/28/16 21:59 Future Hold 02/29/16 20:52 40 MG Acetaminophen (Tylenol Tab) 650 mg Q4H PRN PO 02/27/16 21:15 03/28/16 21:14 02/27/16 22:07 650 MG Amlodipine Besylate (Norvasc Tab) 2.5 mg QAM PO 02/28/16 09:00 03/29/16 08:59 Future Hold 03/03/16 08:46 2.5 MG Aspirin (Ecotrin Tab) 81 mg DAILY PO 02/28/16 09:00 03/29/16 08:59 03/04/16 08:45 81 MG Carvedilol (Coreg Tab) 50 mg BID PO 02/28/16 09:00 03/29/16 08:59 Future Hold 03/03/16 08:47 50 MG Salmeterol Xinafoate/ Fluticasone (Advair Diskus 250/50 Inh) 1 puff BID INH 02/28/16 09:00 03/29/16 08:59 03/04/16 08:40 1 PUFF Fluticasone Propionate (Flonase Nasal [place]) DAILY LATRICE 02/28/16 09:00 03/29/16 08:59 03/04/16 08:43 1 SPRAYS Hydralazine HCl (Apresoline Tab) 75 mg TID PO 02/28/16 09:00 03/29/16 08:59 Future Hold 03/03/16 08:46 75 MG Levothyroxine Sodium (Synthroid Tab) 137 mcg DAILYBB PO 02/28/16 06:30 03/29/16 06:29 03/04/16 06:44 137 MCG Loratadine (Claritin Tab) 10 mg DAILY PO 02/28/16 09:00 03/29/16 08:59 03/04/16 08:44 10 MG Sertraline HCl (Zoloft Tab) 25 mg DAILY PO 02/28/16 09:00 03/29/16 08:59 03/04/16 08:45 25 MG Rosuvastatin Calcium (Crestor Tab) 40 mg QAM PO 02/28/16 09:00 03/29/16 08:59 03/04/16 08:45 40 MG Insulin Aspart (novoLOG ASPART) SLIDING SCALE If C... ACHS SC 02/28/16 06:30 03/29/16 06:29 03/04/16 11:00 1 UNITS Glucose (Glucose 40% Gel) 15-30 GRAMS 15 GRAMS... UD PRN PO 02/27/16 23:45 03/28/16 23:44 Glucose (Glucose Chew Tab) 4-8 Tablets 4 Tabl... UD PRN PO 02/27/16 23:45 03/28/16 23:44 Dextrose (Dextrose 50% 50ML Syringe) 25-50ML OF 50% DW IV FOR... UD PRN IV 02/27/16 23:45 03/28/16 23:44 Glucagon (Glucagon Inj) 1 mg UD PRN SQ 02/27/16 23:45 03/28/16 23:44 Hydromorphone HCl (Dilaudid Inj) 0.5 mg Q3H PRN IV 02/27/16 23:45 03/12/16 23:44 03/04/16 08:40 0.5 MG Tramadol HCl (Ultram Tab) 25 mg Q6H PRN PO 02/27/16 23:45 03/28/16 23:44 03/03/16 17:20 25 MG Senna (Senokot Tab) 17.2 mg QAM PO 03/03/16 09:00 04/02/16 08:59 03/04/16 08:44 17.2 MG Polyethylene (Miralax Powder Packet) 17 gm DAILY PRN PO 03/02/16 14:15 04/01/16 14:14 03/04/16 08:38 17 GM Ondansetron HCl (Zofran Inj) 4 mg Q4H PRN IV 03/02/16 15:45 04/01/16 15:44 Docusate Sodium 100 mg 100 mg BID PO 03/02/16 21:00 04/01/16 20:59 03/04/16 08:44 100 MG Acetaminophen 1000 mg/Empty Bag 100 ml @ 400 mls/hr Q8H IV 03/02/16 17:00 04/01/16 16:59 03/04/16 17:18 400 MLS/HR Sodium Chloride (Nss 1000ml) 1,000 ml @ 75 mls/hr [id number] IV 03/04/16 17:45 04/03/16 17:44 03/04/16 17:45 75 MLS/HR Sodium Biphosphate/ Sodium Phosphate (Fleet Enema) 132 ml BID PRN AL 03/04/16 17:45 04/03/16 17:44 Miscellaneous (Soap Suds Enema) 1 ea 1830 PRN AL 03/04/16 18:30 03/06/16 18:29
[2016-03-04] MEDS ORDERED: MILK AND MOLASSES ENEMA PR PRN (21:00)
[2016-03-05] VITALS: O2SAT 95
[2016-03-05] MEDS: ACETAMINOPHEN IV 1,000 MG in EMPTY BAG 0 ML IV SCH ×3 (01:38→17:32)
[2016-03-05] MEDS: TRAMADOL HCL 50 MG TAB PO PRN (06:12)
[2016-03-05] MEDS: LEVOTHYROXINE 137 MCG TAB PO SCH (06:12)
[2016-03-05] MEDS: SODIUM CHLORIDE 0.9% 1000ML 1,000 ML IV SCH (06:52)
[2016-03-05 06:58] VITALS: BP 111/64; PULSE 72; TEMP 36.5; O2SAT 94
[2016-03-05 07:26] LABS: HEMATOCRIT 29.5 % (37-47); MEAN CELL VOLUME 98.7 fL (80-100); MEAN CORPUSCULAR HEMOGLOBIN 30.8 pg (25-34); MEAN CORPUSCULAR HGB CONC 31.2 g/dl (32-36); MEAN PLATELET VOLUME 9.2 fL (7.4-10.4); PLATELET COUNT 162 K/uL (130-400); RED BLOOD COUNT 2.99 M/uL (4.2-5.4); WHITE BLOOD COUNT 13.77 K/uL (4.8-10.8)
[2016-03-05] MEDS: INSULIN ASPART 100 UNITS/ML 3 ML PEN SC SCH ×4 (07:53→20:46)
[2016-03-05 07:57] LABS: BUN/CREATININE RATIO 28.8 (10-20); CALCIUM 8.7 mg/dl (8.5-10.1); CREATININE 1.3 mg/dl (0.60-1.20); POTASSIUM 4.3 mmol/L (3.5-5.1)
--- NOTE | 2016-03-05 08:07 | DIAGNOSTIC IMAGING REPORT ---
SINGLE VIEW CHEST CLINICAL HISTORY: Pleural effusion. FINDINGS: An AP, portable, upright chest radiograph is compared to study dated 03/04/2016 and correlated with chest CT dated 02/27/2016. The heart is enlarged and there is atherosclerotic calcification of the thoracic aorta. Pulmonary the pulmonary vasculature is noncongested. Right hilar fullness is unchanged and consistent with lymphadenopathy when correlated with recent chest CT scans chronic interstitial thickening is unchanged. A pleural catheter is again noted at the right lung base. There is unchanged right-sided hydropneumothorax with patchy airspace consolidation throughout the right lung as compared to yesterday. The left lung is grossly clear. There is no left-sided pneumothorax. The skeletal structures are osteopenic. Mild degenerative change is seen throughout the thoracic spine. IMPRESSION: 1. A pleural drain at the right lung base is again noted, and there is unchanged right hydropneumothorax as compared to yesterday. 2. Patchy consolidation throughout the right lung is also similar to previous. 3. Cardiomegaly without radiographic evidence of congestive failure. 4. The left lung appears clear. Electronically signed by: Dawson Lunsford M.D. 03/05/2016 8:06 AM Dictated Date/Time: 03/05/2016 8:03 AM
[2016-03-05] MEDS: FLUTICASONE/SALMETEROL 250/50 (ADVAIR) 14 PUFF/1 INHALER INH SCH ×2 (08:36→20:41)
[2016-03-05] MEDS: DOCUSATE SODIUM 100 MG CAP PO SCH ×2 (08:37→20:41)
[2016-03-05] MEDS: ROSUVASTATIN CALCIUM 20 MG TAB PO SCH (08:37)
[2016-03-05] MEDS: LORATADINE 10 MG TAB PO SCH (08:37)
[2016-03-05] MEDS: SERTRALINE HCL 50 MG TAB PO SCH (08:37)
[2016-03-05] MEDS: ASPIRIN 81 MG ECTAB PO SCH (08:37)
[2016-03-05] MEDS: FLUTICASONE PROPIONATE NA SPR 16 GM BTL NAE SCH (08:38)
--- NOTE | 2016-03-05 09:12 | DIAGNOSTIC IMAGING REPORT ---
CHEST ONE VIEW PORTABLE CLINICAL HISTORY: chest tube removal COMPARISON STUDY: 03/05/2016 FINDINGS: The right-sided chest tube has been removed. There is minimal subcutaneous gas in the right. The heart remains enlarged. There are diffuse right lung airspace opacities with more focal right basilar consolidative change. There is a rounded opacity in the right midlung zone which may represent loculated fluid within the fissure. There is right para mediastinal/hilar soft tissue prominence. A right pleural effusion is again suspected.[ IMPRESSION: 1. Interval removal of the right-sided pleural drain 2. Right lung airspace opacities and areas of pleural thickening/fluid which the preceding study. 3. Small 10 mm right apical pneumothorax 4. Soft tissue fullness of the right hilum/mediastinal region, unchanged. Electronically signed by: Jose Lawson M.D. 03/05/2016 9:11 AM Dictated Date/Time: 03/05/2016 9:09 AM
--- NOTE | 2016-03-05 09:17 | Surgery Progress Note ---
Subjective Date of Service: Mar 05, 2016. Pt. gets SOB with activity but is comfortable at rest. She notes an uneventful night. Objective Vitals Date Time Temp Pulse Resp B/P Pulse Ox O2 Delivery O2 Flow Rate FiO2 03/05/16 06:58 36.5 72 18 111/64 94 Nasal Cannula 4.0 03/05/16 00:00 95 Nasal Cannula 4.0 03/04/16 23:08 36.5 61 16 120/77 95 Nasal Cannula 4.0 03/04/16 16:00 93 Nasal Cannula 4.0 03/04/16 15:10 36.8 79 18 112/62 92 Nasal Cannula 4.0 03/04/16 11:34 37.1 78 18 109/65 90 Nasal Cannula 4.0 Physical Exam General: + well developed, + well nourished CV: + RRR Pulmonary: + pertinent finding (decreased at right base) Radiology CXR today--consolidative change noted in right lung field Drains / Tubes chest tube (right side--no air leak, minimal drainage ) Assessment & Plan 75 year old female with malignant pleural effusion -pt. underwent drainage of effusion, talc pleurodesis (03/02/16_ -final chest tube removed this am -encourage ambulation and use of IS -after d/c will see in office in 2 weeks with repeat CXR
[2016-03-05] MEDS: SENNA 8.6 MG TAB PO SCH ×2 (11:45→20:41)
[2016-03-05 11:56] LABS: URINE APPEARANCE CLEAR (CLEAR); URINE BILIRUBIN NEG (NEG); URINE COLOR YELLOW; URINE EPITHELIAL CELL AUTO >30 /lpf (0-5); URINE NITRITE NEG (NEG); URINE SPECIFIC GRAVITY 1.021 (1.000-1.030); UROBILINOGEN NEG (NEG)
[2016-03-05 12:07] LABS: MANUAL MICROSCOPIC REQUIRED? NO; REVIEW REQ? NO
--- NOTE | 2016-03-05 12:38 | Pre-Operative Consultation ---
History General Date of Service: Mar 05, 2016. HPI HPI: The patient is a 75 year old female being seen for pre-operative evaluation fo an Aport placement for metastatic small cell carcinoma of the lung. Work-up and imaging as below: Imaging studies: -PET-CT scan done on 10/16/2014 at [facility] showed no clear FDG avid lesions. Right lung nodule RT without any FDG uptake noted. Several small lymph nodes noted in the hilar mediastinal lesion which are also not metabolic active. -PET-CT scan done on 09/25/2015 showed multiple FDG avid right lung nodules, scattered patchy airspace disease which is not FDG avid, some uptake noted in the ascending colon at hepatic flexure region. -CT scan of the chest done on 02/21/2016 showed no evidence of pulmonary embolism , moderate right pleural effusion with compressive atelectatic changes noted in the right middle lobe and lower lobe. Progressive pathologically enlarged mediastinal and hilar lymphadenopathy. 4.1 x 1.1 cm right lower lobe opacity noted, scattered tiny lung nodules noted. -CT scan of the chest done on 02/27/2016 showed no evidence of pulmonary embolism , moderate right pleural effusion, persistent right hilar and mediastinal lymphadenopathy, 1.9 cm right apical opacity noted. -CT scan of the abdomen and pelvis done without intravenous contrast on 2016 showed no acute changes, no liver lesions, pathologic enlarged mediastinal right hilar lymphadenopathy noted, moderate right pleural effusion with right middle lobe and right lower lobe atelectatic changes, small pleural effusion. No ascites noted. Pathology: -Pleural fluid cytology--> positive for malignant cells consistent with small cell carcinoma. (02/23/2016). - splenic flexure polypectomy--> tubular adenoma (05/12/2007) -TNM staging--> T4 based on is little lung nodules noted in the previous imaging studies, N2, M1a based on malignant pleural effusion), stage IV disease. Historian: patient Procedure Urgency: Acute Risk Assessment Daily beta atif use?: Yes Problem List Medical Problems: (1) Hypoxia Status: Acute (2) Hypoxia Status: Acute (3) Hypoxia Status: Acute (4) Pleural effusion Status: Acute (5) Pleural effusion Status: Acute (6) SOB (shortness of breath) Status: Acute Medical & Surgical History Past Medical History: COPD, diabetes, high cholesterol, hypertension Past Surgical History: , hysterectomy Family History Family History: no pertinent family hx Social History Hx Tobacco Use In Past Year?: No Smoking Status: Never Smoker Alcohol: none Drug Use: none Marital status: Housing status: lives alone Occupation status: unemployed Immunizations Have You Had Influenza Vaccine: Yes Date Of Influenza Vaccine: Oct 01, 2011 Have You Had Tetanus Vaccine: Yes Date Of Tetanus Immunization: Sep 27, 2008 History of Pneumococcal: Yes Date of Pneumococcal Vaccine: Sep 30, 2011 History Hepatitis B Vaccine: No Allergies Allergies: Coded Allergies: No Known Allergies (Verified , 02/27/16) Medications Current Inpatient Medications Current Inpatient Medications Medications (Trade) Dose Ordered Sig/Gilbert Route Start Time Stop Time Status Last Admin Dose Admin Albuterol/ Ipratropium (Duoneb) 3 ml Q2H PRN INH 02/27/16 19:45 03/28/16 19:44 03/02/16 08:30 3 ML Enoxaparin Sodium (Lovenox Inj) 40 mg Q24H SC 02/27/16 22:00 03/28/16 21:59 Future Hold 02/29/16 20:52 40 MG Acetaminophen (Tylenol Tab) 650 mg Q4H PRN PO 02/27/16 21:15 03/28/16 21:14 02/27/16 22:07 650 MG Amlodipine Besylate (Norvasc Tab) 2.5 mg QAM PO 02/28/16 09:00 03/29/16 08:59 Future Hold 03/03/16 08:46 2.5 MG Aspirin (Ecotrin Tab) 81 mg DAILY PO 02/28/16 09:00 03/29/16 08:59 03/05/16 08:37 81 MG Carvedilol (Coreg Tab) 50 mg BID PO 02/28/16 09:00 03/29/16 08:59 Future Hold 03/03/16 08:47 50 MG Salmeterol Xinafoate/ Fluticasone (Advair Diskus 250/50 Inh) 1 puff BID INH 02/28/16 09:00 03/29/16 08:59 03/05/16 08:36 1 PUFF Fluticasone Propionate (Flonase Nasal Virgin) DAILY LATRICE 02/28/16 09:00 03/29/16 08:59 03/05/16 08:38 2 SPRAYS Hydralazine HCl (Apresoline Tab) 75 mg TID PO 02/28/16 09:00 03/29/16 08:59 Future Hold 03/03/16 08:46 75 MG Levothyroxine Sodium (Synthroid Tab) 137 mcg DAILYBB PO 02/28/16 06:30 03/29/16 06:29 03/05/16 06:12 137 MCG Loratadine (Claritin Tab) 10 mg DAILY PO 02/28/16 09:00 03/29/16 08:59 03/05/16 08:37 10 MG Sertraline HCl (Zoloft Tab) 25 mg DAILY PO 02/28/16 09:00 03/29/16 08:59 03/05/16 08:37 25 MG Rosuvastatin Calcium (Crestor Tab) 40 mg QAM PO 02/28/16 09:00 03/29/16 08:59 03/05/16 08:37 40 MG Insulin Aspart (novoLOG ASPART) SLIDING SCALE If C... ACHS SC 02/28/16 06:30 03/29/16 06:29 03/05/16 11:47 2 UNITS Glucose (Glucose 40% Gel) 15-30 GRAMS 15 GRAMS... UD PRN PO 02/27/16 23:45 03/28/16 23:44 Glucose (Glucose Chew Tab) 4-8 Tablets 4 Tabl... UD PRN PO 02/27/16 23:45 03/28/16 23:44 Dextrose (Dextrose 50% 50ML Syringe) 25-50ML OF 50% DW IV FOR... UD PRN IV 02/27/16 23:45 03/28/16 23:44 Glucagon (Glucagon Inj) 1 mg UD PRN SQ 02/27/16 23:45 03/28/16 23:44 Hydromorphone HCl (Dilaudid Inj) 0.5 mg Q3H PRN IV 02/27/16 23:45 03/12/16 23:44 03/04/16 08:40 0.5 MG Tramadol HCl (Ultram Tab) 25 mg Q6H PRN PO 02/27/16 23:45 03/28/16 23:44 03/05/16 06:12 25 MG Ondansetron HCl (Zofran Inj) 4 mg Q4H PRN IV 03/02/16 15:45 04/01/16 15:44 Docusate Sodium 100 mg 100 mg BID PO 03/02/16 21:00 04/01/16 20:59 03/05/16 08:37 100 MG Acetaminophen/ Empty Bag (Ofirmev Iv/ Empty Iv Bag 100ml) 100 ml @ 400 mls/hr Q8H IV 03/02/16 17:00 04/01/16 16:59 03/05/16 01:38 400 MLS/HR Miscellaneous (Soap Suds Enema) 1 ea 1830 PRN [place] 03/04/16 18:30 03/06/16 18:29 Lactulose (Chronulac Syrup) 30 gm Q8 PRN PO 03/04/16 20:45 04/03/16 20:44 Senna (Senokot Tab) 17.2 mg BID PO 03/04/16 21:00 04/03/16 20:59 03/05/16 11:45 17.2 MG Miscellaneous Medication (Milk And Molasses Enema) 1 ea DAILY PRN [place] 03/04/16 21:00 04/03/16 20:59 Polyethylene (Miralax Powder Packet) 17 gm TID PO 03/05/16 14:00 04/04/16 13:59 Review of Systems Review of Systems Constitutional: denies chills, denies diaphoresis, denies fever Eyes: reports: no symptoms ENT: reports: no symptoms reported Cardiovascular: reports: chest pain, denies: chest pressure, chest tightness, diaphoresis Respiratory: reports: cough, short of breath, denies: stridor, wheezing Gastrointestinal: denies abdominal pain, denies constipation, denies diarrhea, denies nausea, denies vomiting Genitourinary - Female: reports: no symptoms Musculoskeletal: denies back pain, denies joint pain, denies joint swelling, denies muscle stiffness, denies neck pain Integumentary: no symptoms reported Neurologic: reports: no symptoms Psychiatric: reports: no symptoms Endocrine: no symptoms Hematologic / Lymphatic: no symptoms Physical Exam Physical Exam General Appearance: + WD/WN, No distress Ears, Nose, Throat: + normal ENT inspection Neck: No abnormal inspection, No stiffness, No tenderness, No tracheal deviation Respiratory: + decreased breath sounds, + other (recent incisions), No rhonchi , No stridor, No wheezing Cardiovascular: No bradycardia, No diastolic murmur, No gallop/S3, No gallop/S4 , No systolic murmur, No tachycardia Abdomen: No abnormal bowel sounds, No distension, No guarding, No hernia, No organomegaly, No tenderness Extremities: No calf tenderness, No deformity, No inflammation, No swelling Neurologic/Psychiatric: No disorientation, No motor deficit/weakness, No sensory deficit Skin Characteristics: No abnormal color, No cyanosis, No diaphoresis, No pallor Diagnostics Labs Labs Results Past 24 Hours Test 03/04/16 16:17 03/04/16 20:43 03/05/16 06:52 03/05/16 07:26 Range/Units Bedside Glucose 130 213 143 70-90 mg/dl White Blood Count 13.77 4.8-10.8 K/uL Red Blood Count 2.99 4.2-5.4 M/uL Hemoglobin 9.2 12.0-16.0 g/dL Hematocrit 29.5 37-47 % Mean Corpuscular Volume 98.7 80-100 fL Mean Corpuscular Hemoglobin 30.8 25-34 pg Mean Corpuscular Hemoglobin Concent 31.2 32-36 g/dl RDW Standard Deviation 48.9 36.4-46.3 fL RDW Coefficient of Variation 13.6 11.5-14.5 % Platelet Count 162 130-400 K/uL Mean Platelet Volume 9.2 7.4-10.4 fL Sodium Level 136 136-145 mmol/L Potassium Level 4.3 3.5-5.1 mmol/L Chloride Level 98 98-107 mmol/L Carbon Dioxide Level 30 21-32 mmol/L Anion Gap 8.0 3-11 mmol/L Blood Urea Nitrogen 37 7-18 mg/dl Creatinine 1.30 0.60-1.20 mg/dl Est Creatinine Clear Calc Drug Dose 35.4 ml/min Estimated GFR () 46.2 Estimated GFR (Non- 39.8 BUN/Creatinine Ratio 28.8 10-20 Random Glucose 131 70-99 mg/dl Calcium Level 8.7 8.5-10.1 mg/dl Test 03/05/16 11:12 03/05/16 11:30 Range/Units Bedside Glucose 231 70-90 mg/dl Urine Color YELLOW Urine Appearance CLEAR CLEAR Urine pH 5.0 4.5-7.5 Urine Specific [place] 1.021 1.000-1.030 Urine Protein TRACE NEG Urine Glucose (UA) TRACE NEG Urine Ketones NEG NEG Urine Occult Blood NEG NEG Urine Nitrite NEG NEG Urine Bilirubin NEG NEG Urine Urobilinogen NEG NEG Urine Leukocyte Esterase NEG NEG Urine WBC (Auto) 1-5 0-5 /hpf Urine RBC (Auto) 0-4 0-4 /hpf Urine Hyaline Casts (Auto) 1-5 0-5 /lpf Urine Epithelial Cells (Auto) >30 0-5 /lpf Urine Bacteria (Auto) NEG NEG Microbiology Results 03/04/16 Blood Culture, Received Pending 03/04/16 Blood Culture, Received Pending 03/05/16 Urine Culture, Received Pending Diagnostic Radiology Diagnostic Radiology CT ANGIOGRAM OF THE CHEST CLINICAL HISTORY: Chest pain. Suspected pulmonary embolism. COMPARISON STUDY: 02/21/2016 TECHNIQUE: Following the IV administration of 95 mL of [id number], CT angiogram of the thorax was performed from the thoracic inlet to the lung bases utilizing the pulmonary embolus protocol. Images are reviewed in the axial, sagittal, and coronal planes. IV contrast was administered without complication. MIP imaging was performed. CT DOSE: 488.84 mGy.cm FINDINGS: There is a mediastinal and right hilar mass which narrows the right renal artery. At the subcarinal level, the mass measures 38 mm. The right paratracheal region, the mass measures 5.5 cm. There was no evidence of thoracic aortic dilatation. There were no pulmonary artery filling defects to indicate acute pulmonary embolism. There is a moderate right pleural effusion. There is a small pericardial effusion. There is right middle and lower lobe atelectasis. There is a stable 19 mm right apical opacity. There is underlying pulmonary emphysema. Scattered tiny pulmonary nodules remain stable. IMPRESSION: 1. No CT evidence of acute pulmonary embolism 2. Moderate right pleural effusion with associated right middle lobe and lower lobe atelectasis 3. Persistent right hilar and mediastinal mass/adenopathy. There is secondary narrowing of the right upper lobe pulmonary artery. This mass/adenopathy is almost certainly neoplastic. Again pelvic consultation for biopsy is recommended. Impression Assessment and Plan Assessment and Plan Small cell CA of the lung, metaststatic -recovering from recent VATs -will see as outpatient and place port once definitive plan for chemo in place
[2016-03-05] MEDS: POLYETHYLENE (MIRALAX) 17 GM PACK PO SCH ×2 (14:00→20:42)
[2016-03-05] MEDS ORDERED: POLYETHYLENE (MIRALAX) 17 GM PACK PO SCH (14:00)
--- NOTE | 2016-03-05 14:21 | Hematology/Oncology Prog Note ---
Hematology/Onc Progress Note Date of Service Mar 05, 2016. Diagnoses 1. 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 Butts performed 03/02/16. Over 1 L of fluid was removed, pleurectomy performed on 50% of right chest wall, along with pleurodesis. * Biopsy from pleura and diaphragm (6 specimens) all positive for metastatic small cell carcinoma * Dr. Ortega has recommended carboplatin/ etoposide in the outpatient setting for systemic therapy. * Advised a port placement during this hospitalization as she has poor venous access- Dr. Vazquez saw patient today and plans to place VAD in outpatient setting as patient currently healing from thoracoscopy * Patient will require a Medical Oncology outpatient follow-up upon discharge Medications Medications Administered Medications (Trade) Dose Ordered Sig/Gilbert Route Start Time Stop Time Status Last Admin Dose Admin Albuterol/ Ipratropium (Duoneb) 3 ml UD STAT INH 02/27/16 19:35 02/27/16 20:04 DC 02/27/16 20:13 3 ML Albuterol/ Ipratropium (Duoneb) 3 ml Q2H PRN INH 02/27/16 19:45 03/28/16 19:44 03/02/16 08:30 3 ML Enoxaparin Sodium (Lovenox Inj) 40 mg Q24H SC 02/27/16 22:00 03/28/16 21:59 Future Hold 02/29/16 20:52 40 MG Acetaminophen (Tylenol Tab) 650 mg Q4H PRN PO 02/27/16 21:15 03/28/16 21:14 02/27/16 22:07 650 MG Amlodipine Besylate (Norvasc Tab) 2.5 mg QAM PO 02/28/16 09:00 03/29/16 08:59 Future Hold 03/03/16 08:46 2.5 MG Aspirin (Ecotrin Tab) 81 mg DAILY PO 02/28/16 09:00 03/29/16 08:59 03/05/16 08:37 81 MG Carvedilol (Coreg Tab) 50 mg BID PO 02/28/16 09:00 03/29/16 08:59 Future Hold 03/03/16 08:47 50 MG Salmeterol Xinafoate/ Fluticasone (Advair Diskus 250/50 Inh) 1 puff BID INH 02/28/16 09:00 03/29/16 08:59 03/05/16 08:36 1 PUFF Fluticasone Propionate (Flonase Nasal [place]) DAILY LATRICE 02/28/16 09:00 03/29/16 08:59 03/05/16 08:38 2 SPRAYS Hydralazine HCl (Apresoline Tab) 75 mg TID PO 02/28/16 09:00 03/29/16 08:59 Future Hold 03/03/16 08:46 75 MG Levothyroxine Sodium (Synthroid Tab) 137 mcg DAILYBB PO 02/28/16 06:30 03/29/16 06:29 03/05/16 06:12 137 MCG Loratadine (Claritin Tab) 10 mg DAILY PO 02/28/16 09:00 03/29/16 08:59 03/05/16 08:37 10 MG Sertraline HCl (Zoloft Tab) 25 mg DAILY PO 02/28/16 09:00 03/29/16 08:59 03/05/16 08:37 25 MG Rosuvastatin Calcium (Crestor Tab) 40 mg QAM PO 02/28/16 09:00 03/29/16 08:59 03/05/16 08:37 40 MG Insulin Aspart (novoLOG ASPART) SLIDING SCALE If C... ACHS SC 02/28/16 06:30 03/29/16 06:29 03/05/16 11:47 2 UNITS Hydromorphone HCl (Dilaudid Inj) 0.5 mg Q3H PRN IV 02/27/16 23:45 03/12/16 23:44 03/04/16 08:40 0.5 MG Tramadol HCl (Ultram Tab) 25 mg Q6H PRN PO 02/27/16 23:45 03/28/16 23:44 03/05/16 06:12 25 MG Lorazepam (Ativan Tab) 0.25 mg ONE ONCE PO 02/28/16 01:00 02/28/16 01:05 DC 02/28/16 01:10 0.25 MG Lorazepam (Ativan Tab) 0.25 mg ONE ONCE PO 02/29/16 00:15 02/29/16 00:17 DC 02/29/16 00:35 0.25 MG Simethicone (Mylicon Chew Tab) 80 mg ONE ONCE PO 02/29/16 00:15 02/29/16 00:17 DC 02/29/16 00:35 80 MG Docusate Sodium (coLACE CAP) 100 mg BID PRN PO 02/29/16 19:00 03/03/16 14:13 DC 03/01/16 21:11 100 MG Polyethylene (Miralax Powder Packet) 17 gm NOW ONCE PO 03/01/16 10:45 03/01/16 10:50 DC 03/01/16 11:22 17 GM Senna (Senokot Tab) 17.2 mg QAM PO 03/03/16 09:00 03/04/16 20:47 DC 03/04/16 08:44 17.2 MG Polyethylene (Miralax Powder Packet) 17 gm DAILY PRN PO 03/02/16 14:15 03/05/16 09:00 DC 03/04/16 08:38 17 GM Miscellaneous (Sclerosol Intrapleural Aerosol 4gm) 2 ea ONE ONCE TOP 03/02/16 15:18 03/02/16 15:20 DC 03/02/16 15:18 2 EA Miscellaneous (266 Mg Exparel + 40 ml Inj Saline) 1 ea ONE ONCE INJ 03/02/16 15:27 03/02/16 15:28 DC 03/02/16 15:27 1 EA Docusate Sodium 100 mg 100 mg BID PO 03/02/16 21:00 04/01/16 20:59 03/05/16 08:37 100 MG Cefazolin Sodium/ Dextrose (Ancef Iv/D5 50ml) 60 ml @ 100 mls/hr Q8H IV 03/02/16 16:30 03/03/16 01:05 DC 03/03/16 01:18 100 MLS/HR Metoclopramide HCl 10 mg 10 mg Q8 IV. 03/02/16 22:00 03/03/16 21:59 DC 03/03/16 14:19 10 MG Acetaminophen/ Empty Bag (Ofirmev Iv/ Empty Iv Bag 100ml) 100 ml @ 400 mls/hr Q8H IV 03/02/16 17:00 04/01/16 16:59 03/05/16 01:38 400 MLS/HR Sodium Biphosphate/ Sodium Phosphate 132 ml 132 ml STK-MED ONCE .ROUTE 03/04/16 17:22 03/04/16 17:24 DC 03/04/16 17:28 132 ML Sodium Chloride (Nss 1000ml) 1,000 ml @ 75 mls/hr [id number] IV 03/04/16 17:45 03/05/16 08:04 DC 03/05/16 06:52 75 MLS/HR Senna (Senokot Tab) 17.2 mg BID PO 03/04/16 21:00 04/03/16 20:59 03/05/16 11:45 17.2 MG Subjective Patient reports no major change in her baseline health status. She reports no major complication from her VATS procedure on 03/02/2016. She notes that her dyspnea on exertion has lessened since the procedure. She does not have cough or fever. She has not had chest pain. She reports a good appetite and has eaten half of her lunch today. She does not have nausea, though she does have constipation. She has not had a bowel movement since she was admitted last weekend. She was started on MiraLax 3 times daily, senna twice daily. She has lactulose every 8 hours as needed. She also has a milk + molasses enema and a soapsuds enema p.r.n. 1 time daily for constipation. She states she was started on constipation medication yesterday and has yet to have a bowel movement. Review of Systems: Constitutional: No fever Respiratory: + dyspnea on exertion (improved), No cough, No sputum, No wheezing Cardiovascular: No chest pain Abdomen: + constipation, No nausea, No pain, No vomiting Vital Signs Vital Signs Past 12 Hours Date Time Temp Pulse Resp B/P Pulse Ox O2 Delivery O2 Flow Rate FiO2 03/05/16 08:40 Nasal Cannula 4.0 03/05/16 06:58 36.5 72 18 111/64 94 Nasal Cannula 4.0 Physical Exam Constitutional: General Apperance: heathly-appearing, well-nourished, well-developed Level of Distress: NAD Lungs: Respiratory Effort: no dyspnea Auscuitation: no wheezing, no rales/crackles, no rhonchi, deminished air movement (right posterior base) Cardiovascular: Heart Auscultation: RRR Abdomen: Bowel Sounds: normal Inspection & Palpation: soft, non-distended, no masses Extremities: edema (ankles to lower calf, no tenderness to palpation) Neurologic: Cranial Nerves: grossly intact Sensation: grossly intact Laboratory 03/03/16 07:00 03/04/16 07:48 03/05/16 06:52 03/03/16 07:00 03/04/16 07:48 03/05/16 06:52 Test 03/02/16 16:00 03/02/16 21:12 03/03/16 07:00 03/03/16 08:01 Bedside Glucose 142 mg/dl (70-90) 122 mg/dl (70-90) 134 mg/dl (70-90) Red Blood Count 3.67 M/uL (4.2-5.4) Mean Corpuscular Volume 98.6 fL (80-100) Mean Corpuscular Hemoglobin 30.8 pg (25-34) Mean Corpuscular Hemoglobin Concent 31.2 g/dl (32-36) RDW Standard Deviation 49.4 fL (36.4-46.3) RDW Coefficient of Variation 13.8 % (11.5-14.5) Mean Platelet Volume 9.2 fL (7.4-10.4) Anion Gap 11.0 mmol/L (3-11) Est Creatinine Clear Calc Drug Dose 35.5 ml/min Estimated GFR () 46.2 Estimated GFR (Non- 39.8 BUN/Creatinine Ratio 15.2 (10-20) Calcium Level 8.6 mg/dl (8.5-10.1) Test 03/03/16 11:27 03/03/16 16:43 03/03/16 20:18 03/04/16 07:24 Bedside Glucose 183 mg/dl (70-90) 143 mg/dl (70-90) 148 mg/dl (70-90) 137 mg/dl (70-90) Test 03/04/16 07:48 03/04/16 11:39 03/04/16 16:17 03/04/16 20:43 Red Blood Count 3.26 M/uL (4.2-5.4) Mean Corpuscular Volume 99.1 fL (80-100) Mean Corpuscular Hemoglobin 31.0 pg (25-34) Mean Corpuscular Hemoglobin Concent 31.3 g/dl (32-36) RDW Standard Deviation 49.3 fL (36.4-46.3) RDW Coefficient of Variation 13.7 % (11.5-14.5) Mean Platelet Volume 9.2 fL (7.4-10.4) Anion Gap 9.0 mmol/L (3-11) Est Creatinine Clear Calc Drug Dose 29.0 ml/min Estimated GFR () 35.9 Estimated GFR (Non- 31.0 BUN/Creatinine Ratio 20.9 (10-20) Calcium Level 8.7 mg/dl (8.5-10.1) Bedside Glucose 194 mg/dl (70-90) 130 mg/dl (70-90) 213 mg/dl (70-90) Test 03/05/16 06:52 03/05/16 07:26 03/05/16 11:12 03/05/16 11:30 Red Blood Count 2.99 M/uL (4.2-5.4) Mean Corpuscular Volume 98.7 fL (80-100) Mean Corpuscular Hemoglobin 30.8 pg (25-34) Mean Corpuscular Hemoglobin Concent 31.2 g/dl (32-36) RDW Standard Deviation 48.9 fL (36.4-46.3) RDW Coefficient of Variation 13.6 % (11.5-14.5) Mean Platelet Volume 9.2 fL (7.4-10.4) Anion Gap 8.0 mmol/L (3-11) Est Creatinine Clear Calc Drug Dose 35.4 ml/min Estimated GFR () 46.2 Estimated GFR (Non- 39.8 BUN/Creatinine Ratio 28.8 (10-20) Calcium Level 8.7 mg/dl (8.5-10.1) Bedside Glucose 143 mg/dl (70-90) 231 mg/dl (70-90) Urine Color YELLOW Urine Appearance CLEAR (CLEAR) Urine pH 5.0 (4.5-7.5) Urine Specific [place] 1.021 (1.000-1.030) Urine Protein TRACE (NEG) Urine Glucose (UA) TRACE (NEG) Urine Ketones NEG (NEG) Urine Occult Blood NEG (NEG) Urine Nitrite NEG (NEG) Urine Bilirubin NEG (NEG) Urine Urobilinogen NEG (NEG) Urine Leukocyte Esterase NEG (NEG) Urine WBC (Auto) 1-5 /hpf (0-5) Urine RBC (Auto) 0-4 /hpf (0-4) Urine Hyaline Casts (Auto) 1-5 /lpf (0-5) Urine Epithelial Cells (Auto) >30 /lpf (0-5) Urine Bacteria (Auto) NEG (NEG) Pathology Pleurectomy with multiple pleural implant removal and diaphragmatic implant biopsy from 03/02/2016: 5 pleural special means and 1 diaphragmatic special man all positive for metastatic small cell carcinoma Radiology Chest x-ray from 03/05/2016: Right-sided chest tube has been removed. Minimal subcutaneous gas on the right. Heart remains enlarged. Diffuse right lung airspace opacities with more focal right basilar consolidative change. Rounded opacity in the right mid lung zone which may represent loculated fluid within the fissure. Right paramediastinal/hilar soft tissue prominence. Right pleural effusion is again suspected. Small 10 mm right apical pneumothorax. Assessment & Plan (1) Small cell carcinoma of right lung Assessment & Plan: See diagnosis section at top for A/P. (2) Pleural effusion Status: Acute Assessment & Plan: See diagnosis section at top for A/P.
[2016-03-05 15:10] VITALS: BP 120/67; PULSE 77; TEMP 37; O2SAT 93
--- NOTE | 2016-03-05 18:24 | Progress Note ---
Medicine Progress Note Date & Time of Visit: Mar 05, 2016 at 18:20. Subjective Patient seen and examined. Remaining chest tube removed today. Denies pain. Breathing stable. Objective Last 8 Hrs Date Time Temp Pulse Resp B/P Pulse Ox O2 Delivery O2 Flow Rate FiO2 03/05/16 16:11 Nasal Cannula 4.0 03/05/16 15:10 37.0 77 18 120/67 93 2.0 Physical Exam: General-awake; alert; NAD Eyes-EOMI; no scleral icterus Neck-no stridor; trachea midline Lungs-CTA on the left; diminished breath sounds on right Heart-RRR; no m/r/g Abdomen-soft; NTND; nBS Neuro-no gross focal deficits Laboratory Results: Last 24 Hours Test 03/04/16 20:43 03/05/16 06:52 03/05/16 07:26 03/05/16 11:12 Bedside Glucose 213 mg/dl 143 mg/dl 231 mg/dl White Blood Count 13.77 K/uL Red Blood Count 2.99 M/uL Hemoglobin 9.2 g/dL Hematocrit 29.5 % Mean Corpuscular Volume 98.7 fL Mean Corpuscular Hemoglobin 30.8 pg Mean Corpuscular Hemoglobin Concent 31.2 g/dl RDW Standard Deviation 48.9 fL RDW Coefficient of Variation 13.6 % Platelet Count 162 K/uL Mean Platelet Volume 9.2 fL Sodium Level 136 mmol/L Potassium Level 4.3 mmol/L Chloride Level 98 mmol/L Carbon Dioxide Level 30 mmol/L Anion Gap 8.0 mmol/L Blood Urea Nitrogen 37 mg/dl Creatinine 1.30 mg/dl Est Creatinine Clear Calc Drug Dose 35.4 ml/min Estimated GFR () 46.2 Estimated GFR (Non- 39.8 BUN/Creatinine Ratio 28.8 Random Glucose 131 mg/dl Calcium Level 8.7 mg/dl Test 03/05/16 11:30 03/05/16 16:22 Urine Color YELLOW Urine Appearance CLEAR Urine pH 5.0 Urine Specific [place] 1.021 Urine Protein TRACE Urine Glucose (UA) TRACE Urine Ketones NEG Urine Occult Blood NEG Urine Nitrite NEG Urine Bilirubin NEG Urine Urobilinogen NEG Urine Leukocyte Esterase NEG Urine WBC (Auto) 1-5 /hpf Urine RBC (Auto) 0-4 /hpf Urine Hyaline Casts (Auto) 1-5 /lpf Urine Epithelial Cells (Auto) >30 /lpf Urine Bacteria (Auto) NEG Bedside Glucose 137 mg/dl Date/Time Source Procedure Growth Status 03/05/16 11:30 Urine , Clean Catch Urine Culture Pending Received Assessment & Plan Acute on chronic hypoxemic respiratory failure Likely secondary to right pleural effusion Continue oxygen supplement Thoracic surgery consulted VATS and pleurodesis 03/02/16 Pulmonary consulted Leukocytosis Urinalysis unremarkable and urine culture pending Blood cultures pending Downtrending Constipation Continue docusate, senna, Miralax Enema PRN ALAINA Possibly due to previous low blood pressures, decreased PO intake Received gentle IVF's with improvement Avoid nephrotoxins HTN Hold amlodipine, carvedilol, hydralazine given low-normal blood pressures Small Cell Lung Cancer Stage IV Oncology consulted Recommended palliative treatment, to start as outpatient General surgery consulted for port placement - will proceed as outpatient Right Bundle Branch block Asymptomatic Continue rosuvastatin, aspirin; hold carvedilol given low-normal blood pressures TTE unremarkable COPD Continue Advair, duoneb and oxygen supplement Hypothyroidism Continue levothyroxine DVT prophylaxis with SCD's. Consultants: Thoracic surgery Oncology Pulmonary Procedures: ECHO: The left ventricle is normal in size. * There is mild concentric left ventricular hypertrophy. * The left ventricular wall motion is normal. * Left ventricular systolic function is normal. * Ejection Fraction = 55-60%. * The left atrium is moderately dilated. * Aortic valve sclerosis mild, without significant aortic valvular stenosis. * Mild aortic regurgitation. * There is mild mitral regurgitation. * There is mild to moderate tricuspid regurgitation. * Right ventricular systolic pressure is elevated at 40-50mmHg. * There is no pericardial effusion. CT chest 1. No CT evidence of acute pulmonary embolism 2. Moderate right pleural effusion with associated right middle lobe and lower lobe atelectasis 3. Persistent right hilar and mediastinal mass/adenopathy. There is secondary narrowing of the right upper lobe pulmonary artery. This mass/adenopathy is almost certainly neoplastic. Again pulmonary consultation for biopsy is recommended. CT a/p 1. No evidence of bowel obstruction. No evidence of free air 2. No acute inflammatory changes within the abdomen or pelvis 3. Pathologic mediastinal and right hilar adenopathy 4. Moderate right pleural effusion with right middle lobe and right lower lobe atelectatic change 5. Small pericardial effusion. Coronary artery calcifications. MRI brain 1. No evidence of metastatic disease. 2. No acute intracranial findings. 3. 1.5 x 0.4 x 1.4 cm left parafalcine lesion suggestive of a small meningioma. Bone scan No evidence of skeletal metastatic disease. Current Inpatient Medications: Current Inpatient Medications Medications (Trade) Dose Ordered Sig/Gilbert Route Start Time Stop Time Status Last Admin Dose Admin Albuterol/ Ipratropium (Duoneb) 3 ml Q2H PRN INH 02/27/16 19:45 03/28/16 19:44 03/02/16 08:30 3 ML Enoxaparin Sodium (Lovenox Inj) 40 mg Q24H SC 02/27/16 22:00 03/28/16 21:59 Future Hold 02/29/16 20:52 40 MG Acetaminophen (Tylenol Tab) 650 mg Q4H PRN PO 02/27/16 21:15 03/28/16 21:14 02/27/16 22:07 650 MG Amlodipine Besylate (Norvasc Tab) 2.5 mg QAM PO 02/28/16 09:00 03/29/16 08:59 Future Hold 03/03/16 08:46 2.5 MG Aspirin (Ecotrin Tab) 81 mg DAILY PO 02/28/16 09:00 03/29/16 08:59 03/05/16 08:37 81 MG Carvedilol (Coreg Tab) 50 mg BID PO 02/28/16 09:00 03/29/16 08:59 Future Hold 03/03/16 08:47 50 MG Salmeterol Xinafoate/ Fluticasone (Advair Diskus 250/50 Inh) 1 puff BID INH 02/28/16 09:00 03/29/16 08:59 03/05/16 08:36 1 PUFF Fluticasone Propionate (Flonase Nasal [place]) DAILY LATRICE 02/28/16 09:00 03/29/16 08:59 03/05/16 08:38 2 SPRAYS Hydralazine HCl (Apresoline Tab) 75 mg TID PO 02/28/16 09:00 03/29/16 08:59 Future Hold 03/03/16 08:46 75 MG Levothyroxine Sodium (Synthroid Tab) 137 mcg DAILYBB PO 02/28/16 06:30 03/29/16 06:29 03/05/16 06:12 137 MCG Loratadine (Claritin Tab) 10 mg DAILY PO 02/28/16 09:00 03/29/16 08:59 03/05/16 08:37 10 MG Sertraline HCl (Zoloft Tab) 25 mg DAILY PO 02/28/16 09:00 03/29/16 08:59 03/05/16 08:37 25 MG Rosuvastatin Calcium (Crestor Tab) 40 mg QAM PO 02/28/16 09:00 03/29/16 08:59 03/05/16 08:37 40 MG Insulin Aspart (novoLOG ASPART) SLIDING SCALE If C... ACHS SC 02/28/16 06:30 03/29/16 06:29 03/05/16 11:47 2 UNITS Glucose (Glucose 40% Gel) 15-30 GRAMS 15 GRAMS... UD PRN PO 02/27/16 23:45 03/28/16 23:44 Glucose (Glucose Chew Tab) 4-8 Tablets 4 Tabl... UD PRN PO 02/27/16 23:45 03/28/16 23:44 Dextrose (Dextrose 50% 50ML Syringe) 25-50ML OF 50% DW IV FOR... UD PRN IV 02/27/16 23:45 03/28/16 23:44 Glucagon (Glucagon Inj) 1 mg UD PRN SQ 02/27/16 23:45 03/28/16 23:44 Hydromorphone HCl (Dilaudid Inj) 0.5 mg Q3H PRN IV 02/27/16 23:45 03/12/16 23:44 03/04/16 08:40 0.5 MG Tramadol HCl (Ultram Tab) 25 mg Q6H PRN PO 02/27/16 23:45 03/28/16 23:44 03/05/16 06:12 25 MG Ondansetron HCl (Zofran Inj) 4 mg Q4H PRN IV 03/02/16 15:45 04/01/16 15:44 Docusate Sodium 100 mg 100 mg BID PO 03/02/16 21:00 04/01/16 20:59 03/05/16 08:37 100 MG Acetaminophen/ Empty Bag (Ofirmev Iv/ Empty Iv Bag 100ml) 100 ml @ 400 mls/hr Q8H IV 03/02/16 17:00 04/01/16 16:59 03/05/16 01:38 400 MLS/HR Miscellaneous (Soap Suds Enema) 1 ea 1830 PRN [place] 03/04/16 18:30 03/06/16 18:29 Lactulose (Chronulac Syrup) 30 gm Q8 PRN PO 03/04/16 20:45 04/03/16 20:44 Senna (Senokot Tab) 17.2 mg BID PO 03/04/16 21:00 04/03/16 20:59 03/05/16 11:45 17.2 MG Miscellaneous Medication (Milk And Molasses Enema) 1 ea DAILY PRN [place] 03/04/16 21:00 04/03/16 20:59 Polyethylene (Miralax Powder Packet) 17 gm TID PO 03/05/16 14:00 04/04/16 13:59
[2016-03-05 19:43] VITALS: O2SAT 93
[2016-03-05 23:51] VITALS: BP 146/72; PULSE 82; TEMP 36.8; O2SAT 95
[2016-03-06] VITALS (9 sets, daily range): BP systolic 112–142; BP diastolic 62–76; PULSE 68–89; TEMP 36.7–37.1; O2SAT 90–97
[2016-03-06] MEDS: LEVOTHYROXINE 137 MCG TAB PO SCH (06:04)
--- NOTE | 2016-03-06 07:02 | Surgery Progress Note ---
Subjective Date of Service: Mar 06, 2016. Pt. denies CP. She is not SOB at rest but notes some slight SOB with ambulation. Objective Vitals Date Time Temp Pulse Resp B/P Pulse Ox O2 Delivery O2 Flow Rate FiO2 03/06/16 00:45 Nasal Cannula 4.0 03/05/16 23:51 36.8 82 16 146/72 95 Nasal Cannula 4.0 03/05/16 19:43 93 Nasal Cannula 4.0 03/05/16 16:11 Nasal Cannula 4.0 03/05/16 15:10 37.0 77 18 120/67 93 2.0 03/05/16 08:40 Nasal Cannula 4.0 Physical Exam General: + well developed, + well nourished CV: + RRR Pulmonary: + pertinent finding (decreased BS at right base), No accessory muscle use, No respiratory distress Extremities: No calf tenderness Neurologic: + alert & oriented x 3 Radiology CXR today agian shos some consolidative change in right lung field, similar to yesterday's CXR Assessment & Plan 75 year old female with malignant pleural effusion -pt. underwent drainage of effusion, talc pleurodesis (03/02/16) -final chest tube removed (03/05/16) -continue to encourage ambulation and use of IS -after d/c will see in office in 2 weeks with repeat CXR
--- NOTE | 2016-03-06 07:06 | DIAGNOSTIC IMAGING REPORT ---
CHEST ONE VIEW PORTABLE CLINICAL HISTORY: pneumothorax COMPARISON STUDY: 03/05/2016 FINDINGS: The heart remains enlarged. There is a persistent tiny right apical pneumothorax. There is a right pleural effusion. Interstitial right lung opacities remain stable. There is soft tissue prominence the right para mediastinal and hilar region.[ IMPRESSION: Stable findings. Electronically signed by: Jose Lawson M.D. 03/06/2016 7:05 AM Dictated Date/Time: 03/06/2016 7:03 AM
[2016-03-06 08:14] LABS: HEMATOCRIT 30.5 % (37-47); MEAN CELL VOLUME 100.3 fL (80-100); MEAN CORPUSCULAR HEMOGLOBIN 30.6 pg (25-34); MEAN CORPUSCULAR HGB CONC 30.5 g/dl (32-36); MEAN PLATELET VOLUME 9.3 fL (7.4-10.4); PLATELET COUNT 222 K/uL (130-400); RED BLOOD COUNT 3.04 M/uL (4.2-5.4)
[2016-03-06] MEDS: INSULIN ASPART 100 UNITS/ML 3 ML PEN SC SCH ×4 (08:29→20:24)
[2016-03-06] MEDS: DOCUSATE SODIUM 100 MG CAP PO SCH ×2 (08:35→20:20)
[2016-03-06] MEDS: ROSUVASTATIN CALCIUM 20 MG TAB PO SCH (08:35)
[2016-03-06] MEDS: ASPIRIN 81 MG ECTAB PO SCH (08:35)
[2016-03-06] MEDS: LORATADINE 10 MG TAB PO SCH (08:35)
[2016-03-06] MEDS: SERTRALINE HCL 50 MG TAB PO SCH (08:35)
[2016-03-06] MEDS: POLYETHYLENE (MIRALAX) 17 GM PACK PO SCH ×3 (08:36→20:20)
[2016-03-06] MEDS: FLUTICASONE PROPIONATE NA SPR 16 GM BTL NAE SCH (08:36)
[2016-03-06] MEDS: FLUTICASONE/SALMETEROL 250/50 (ADVAIR) 14 PUFF/1 INHALER INH SCH ×2 (08:36→20:20)
[2016-03-06] MEDS: SENNA 8.6 MG TAB PO SCH ×2 (08:36→20:21)
[2016-03-06 08:44] LABS: BUN/CREATININE RATIO 29.1 (10-20); CREATININE 1.1 mg/dl (0.60-1.20); POTASSIUM 4.5 mmol/L (3.5-5.1)
[2016-03-06] MEDS ORDERED: NURSING VERBAL MED ORDER ONE (09:00)
[2016-03-06] MEDS ORDERED: BISACODYL 5 MG TABEC PO ONE (09:15)
[2016-03-06] MEDS: TRAMADOL HCL 50 MG TAB PO PRN ×2 (09:32→21:41)
--- NOTE | 2016-03-06 16:10 | Progress Note ---
Medicine Progress Note Date & Time of Visit: Mar 06, 2016 at 16:08. Subjective Patient seen and examined. Still no BM. Some abdominal discomfort. Passing flatus. No nausea/vomiting. Tolerating diet. Objective Last 8 Hrs Date Time Temp Pulse Resp B/P Pulse Ox O2 Delivery O2 Flow Rate FiO2 03/06/16 15:45 36.9 68 21 112/62 97 Nasal Cannula 4.0 Humidified Oxygen 03/06/16 10:09 95 Nasal Cannula 4.0 03/06/16 08:45 Nasal Cannula 4.0 03/06/16 08:17 37.0 70 21 128/72 95 Nasal Cannula 4.0 Physical Exam: General-awake; alert; NAD Eyes-EOMI; no scleral icterus Neck-no stridor; trachea midline Lungs-CTA on the left; diminished breath sounds on right Heart-RRR; no m/r/g Abdomen-soft; NTND; nBS Neuro-no gross focal deficits Laboratory Results: Last 24 Hours Test 03/05/16 16:22 03/05/16 20:00 03/06/16 07:00 03/06/16 07:21 Bedside Glucose 137 mg/dl 220 mg/dl 164 mg/dl White Blood Count 11.70 K/uL Red Blood Count 3.04 M/uL Hemoglobin 9.3 g/dL Hematocrit 30.5 % Mean Corpuscular Volume 100.3 fL Mean Corpuscular Hemoglobin 30.6 pg Mean Corpuscular Hemoglobin Concent 30.5 g/dl RDW Standard Deviation 50.7 fL RDW Coefficient of Variation 13.8 % Platelet Count 222 K/uL Mean Platelet Volume 9.3 fL Sodium Level 139 mmol/L Potassium Level 4.5 mmol/L Chloride Level 99 mmol/L Carbon Dioxide Level 30 mmol/L Anion Gap 10.0 mmol/L Blood Urea Nitrogen 32 mg/dl Creatinine 1.10 mg/dl Est Creatinine Clear Calc Drug Dose 41.8 ml/min Estimated GFR () 56.5 Estimated GFR (Non- 48.7 BUN/Creatinine Ratio 29.1 Random Glucose 157 mg/dl Calcium Level 9.0 mg/dl Test 03/06/16 11:54 Bedside Glucose 163 mg/dl Assessment & Plan Acute on chronic hypoxemic respiratory failure Likely secondary to right pleural effusion Continue oxygen supplement Thoracic surgery consulted VATS and pleurodesis 1/24/17 Pulmonary consulted Leukocytosis Urinalysis unremarkable and urine culture no growth Blood cultures ngtd Downtrending Constipation Continue docusate, senna, Miralax Enema PRN Lactulose PRN ALAINA Possibly due to previous low blood pressures, decreased PO intake Received gentle IVF's with improvement Avoid nephrotoxins Resolved HTN Hold amlodipine, carvedilol, hydralazine given low-normal blood pressures Small Cell Lung Cancer Stage IV Oncology consulted Recommended palliative treatment, to start as outpatient General surgery consulted for port placement - will proceed as outpatient Right Bundle Branch block Asymptomatic Continue rosuvastatin, aspirin; hold carvedilol given low-normal blood pressures TTE unremarkable COPD Continue Advair, duoneb and oxygen supplement Hypothyroidism Continue levothyroxine DVT prophylaxis with SCD's. Dispo: rehab Consultants: Thoracic surgery Oncology Pulmonary General surgery Procedures: ECHO: The left ventricle is normal in size. * There is mild concentric left ventricular hypertrophy. * The left ventricular wall motion is normal. * Left ventricular systolic function is normal. * Ejection Fraction = 55-60%. * The left atrium is moderately dilated. * Aortic valve sclerosis mild, without significant aortic valvular stenosis. * Mild aortic regurgitation. * There is mild mitral regurgitation. * There is mild to moderate tricuspid regurgitation. * Right ventricular systolic pressure is elevated at 40-50mmHg. * There is no pericardial effusion. CT chest 1. No CT evidence of acute pulmonary embolism 2. Moderate right pleural effusion with associated right middle lobe and lower lobe atelectasis 3. Persistent right hilar and mediastinal mass/adenopathy. There is secondary narrowing of the right upper lobe pulmonary artery. This mass/adenopathy is almost certainly neoplastic. Again pulmonary consultation for biopsy is recommended. CT a/p 1. No evidence of bowel obstruction. No evidence of free air 2. No acute inflammatory changes within the abdomen or pelvis 3. Pathologic mediastinal and right hilar adenopathy 4. Moderate right pleural effusion with right middle lobe and right lower lobe atelectatic change 5. Small pericardial effusion. Coronary artery calcifications. MRI brain 1. No evidence of metastatic disease. 2. No acute intracranial findings. 3. 1.5 x 0.4 x 1.4 cm left parafalcine lesion suggestive of a small meningioma. Bone scan No evidence of skeletal metastatic disease. Current Inpatient Medications: Current Inpatient Medications Medications (Trade) Dose Ordered Sig/Gilbert Route Start Time Stop Time Status Last Admin Dose Admin Albuterol/ Ipratropium (Duoneb) 3 ml Q2H PRN INH 02/27/16 19:45 03/28/16 19:44 03/02/16 08:30 3 ML Enoxaparin Sodium (Lovenox Inj) 40 mg Q24H SC 02/27/16 22:00 03/28/16 21:59 Future Hold 02/29/16 20:52 40 MG Acetaminophen (Tylenol Tab) 650 mg Q4H PRN PO 02/27/16 21:15 03/28/16 21:14 02/27/16 22:07 650 MG Amlodipine Besylate (Norvasc Tab) 2.5 mg QAM PO 02/28/16 09:00 03/29/16 08:59 Future Hold 03/03/16 08:46 2.5 MG Aspirin (Ecotrin Tab) 81 mg DAILY PO 02/28/16 09:00 03/29/16 08:59 03/06/16 08:35 81 MG Carvedilol (Coreg Tab) 50 mg BID PO 02/28/16 09:00 03/29/16 08:59 Future Hold 03/03/16 08:47 50 MG Salmeterol Xinafoate/ Fluticasone (Advair Diskus 250/50 Inh) 1 puff BID INH 02/28/16 09:00 03/29/16 08:59 03/06/16 08:36 1 PUFF Fluticasone Propionate (Flonase Nasal [place]) DAILY LATRICE 02/28/16 09:00 03/29/16 08:59 03/06/16 08:36 2 SPRAYS Hydralazine HCl (Apresoline Tab) 75 mg TID PO 02/28/16 09:00 03/29/16 08:59 Future Hold 03/03/16 08:46 75 MG Levothyroxine Sodium (Synthroid Tab) 137 mcg DAILYBB PO 02/28/16 06:30 03/29/16 06:29 03/06/16 06:04 137 MCG Loratadine (Claritin Tab) 10 mg DAILY PO 02/28/16 09:00 03/29/16 08:59 03/06/16 08:35 10 MG Sertraline HCl (Zoloft Tab) 25 mg DAILY PO 02/28/16 09:00 03/29/16 08:59 1/28/17 08:35 25 MG Rosuvastatin Calcium (Crestor Tab) 40 mg QAM PO 02/28/16 09:00 03/29/16 08:59 03/06/16 08:35 40 MG Insulin Aspart (novoLOG ASPART) SLIDING SCALE If C... ACHS SC 02/28/16 06:30 03/29/16 06:29 03/05/16 20:46 1 UNITS Glucose (Glucose 40% Gel) 15-30 GRAMS 15 GRAMS... UD PRN PO 02/27/16 23:45 03/28/16 23:44 Glucose (Glucose Chew Tab) 4-8 Tablets 4 Tabl... UD PRN PO 02/27/16 23:45 03/28/16 23:44 Dextrose (Dextrose 50% 50ML Syringe) 25-50ML OF 50% DW IV FOR... UD PRN IV 02/27/16 23:45 03/28/16 23:44 Glucagon (Glucagon Inj) 1 mg UD PRN SQ 02/27/16 23:45 03/28/16 23:44 Hydromorphone HCl (Dilaudid Inj) 0.5 mg Q3H PRN IV 02/27/16 23:45 03/12/16 23:44 03/04/16 08:40 0.5 MG Tramadol HCl (Ultram Tab) 25 mg Q6H PRN PO 02/27/16 23:45 03/28/16 23:44 03/06/16 09:32 25 MG Ondansetron HCl (Zofran Inj) 4 mg Q4H PRN IV 03/02/16 15:45 04/01/16 15:44 Docusate Sodium (coLACE CAP) 100 mg BID PO 03/02/16 21:00 04/01/16 20:59 03/06/16 08:35 100 MG Miscellaneous (Soap Suds Enema) 1 ea 1830 PRN [place] 03/04/16 18:30 03/06/16 18:29 Lactulose (Chronulac Syrup) 30 gm Q8 PRN PO 03/04/16 20:45 04/03/16 20:44 Senna (Senokot Tab) 17.2 mg BID PO 03/04/16 21:00 04/03/16 20:59 03/06/16 08:36 17.2 MG Miscellaneous Medication (Milk And Molasses Enema) 1 ea DAILY PRN [place] 03/04/16 21:00 04/03/16 20:59 Polyethylene (Miralax Powder Packet) 17 gm TID PO 03/05/16 14:00 04/04/16 13:59
[2016-03-06] MEDS: ALBUT/IPRATROP 3MG/0.5MG NEB 3 ML VIAL INH PRN (22:25)
[2016-03-07] MEDS: LEVOTHYROXINE 137 MCG TAB PO SCH (06:11)
--- NOTE | 2016-03-07 06:45 | Surgery Progress Note ---
Subjective Date of Service: Mar 07, 2016. Pt. notes she has been able to ambulate with some SOB, but is comfortable at rest. Objective Vitals Date Time Temp Pulse Resp B/P Pulse Ox O2 Delivery O2 Flow Rate FiO2 03/07/16 00:02 Nasal Cannula 4.0 03/06/16 23:54 94 Nasal Cannula 4.0 03/06/16 23:53 36.7 81 18 130/76 90 Nasal Cannula 2.0 03/06/16 22:25 89 18 93 Nasal Cannula 4.0 03/06/16 19:49 97 Nasal Cannula 4.0 Humidified Oxygen 03/06/16 16:00 97 Nasal Cannula 4.0 Humidified Oxygen 03/06/16 15:45 36.9 68 21 112/62 97 Nasal Cannula 4.0 Humidified Oxygen 03/06/16 10:09 95 Nasal Cannula 4.0 03/06/16 08:45 Nasal Cannula 4.0 03/06/16 08:17 37.0 70 21 128/72 95 Nasal Cannula 4.0 03/06/16 07:25 37.1 71 20 142/73 93 Nasal Cannula 2.0 Physical Exam General: + well developed, + well nourished CV: + RRR Pulmonary: + pertinent finding (decreased at right base), No accessory muscle use, No respiratory distress Extremities: No calf tenderness Neurologic: + alert & oriented x 3 Assessment & Plan 75 year old female with malignant pleural effusion -pt. underwent drainage of effusion, talc pleurodesis (03/02/16) -final chest tube removed (03/05/16) -ambulation and use of IS encouraged -after d/c will arrange for pt. to be seen in office in 2 weeks with repeat CXR
[2016-03-07 07:20] LABS: HEMATOCRIT 29.3 % (37-47); MEAN CORPUSCULAR HEMOGLOBIN 30.4 pg (25-34); MEAN CORPUSCULAR HGB CONC 30.7 g/dl (32-36); MEAN PLATELET VOLUME 8.9 fL (7.4-10.4); PLATELET COUNT 202 K/uL (130-400); RED BLOOD COUNT 2.96 M/uL (4.2-5.4); WHITE BLOOD COUNT 8.56 K/uL (4.8-10.8)
[2016-03-07 07:23] VITALS: BP 138/71; PULSE 69; TEMP 37; O2SAT 95
[2016-03-07 07:43] LABS: BUN/CREATININE RATIO 34.2 (10-20); CALCIUM 9.1 mg/dl (8.5-10.1); CREATININE 0.9 mg/dl (0.60-1.20); POTASSIUM 4.6 mmol/L (3.5-5.1)
[2016-03-07] MEDS: LORATADINE 10 MG TAB PO SCH (08:18)
[2016-03-07] MEDS: DOCUSATE SODIUM 100 MG CAP PO SCH ×2 (08:18→20:32)
[2016-03-07] MEDS: INSULIN ASPART 100 UNITS/ML 3 ML PEN SC SCH ×4 (08:18→20:33)
[2016-03-07] MEDS: SENNA 8.6 MG TAB PO SCH (08:19)
[2016-03-07] MEDS: SERTRALINE HCL 50 MG TAB PO SCH (08:19)
[2016-03-07] MEDS: FLUTICASONE/SALMETEROL 250/50 (ADVAIR) 14 PUFF/1 INHALER INH SCH ×2 (08:19→20:31)
[2016-03-07] MEDS: ASPIRIN 81 MG ECTAB PO SCH (08:19)
[2016-03-07] MEDS: FLUTICASONE PROPIONATE NA SPR 16 GM BTL NAE SCH (08:19)
[2016-03-07] MEDS: ROSUVASTATIN CALCIUM 20 MG TAB PO SCH (08:19)
[2016-03-07] MEDS: TRAMADOL HCL 50 MG TAB PO PRN (08:26)
[2016-03-07] MEDS: POLYETHYLENE (MIRALAX) 17 GM PACK PO SCH (09:00)
[2016-03-07 15:29] VITALS: BP 127/74; PULSE 68; TEMP 37; O2SAT 97
--- NOTE | 2016-03-07 17:55 | Progress Note ---
Medicine Progress Note Date & Time of Visit: Mar 07, 2016 at 17:53. Subjective Patient seen and examined. Walked a lap around the hallway and felt tired. Had a BM yesterday!!! Objective Last 8 Hrs Date Time Temp Pulse Resp B/P Pulse Ox O2 Delivery O2 Flow Rate FiO2 03/07/16 16:15 Nasal Cannula 4.0 03/07/16 15:29 37.0 68 20 127/74 97 Nasal Cannula 2.0 Physical Exam: General-awake; alert; NAD Eyes-EOMI; no scleral icterus Neck-no stridor; trachea midline Lungs-CTA on the left; diminished breath sounds on right Heart-RRR; no m/r/g Abdomen-soft; NTND; nBS Neuro-no gross focal deficits Laboratory Results: Last 24 Hours Test 03/06/16 20:18 03/07/16 06:33 03/07/16 07:38 03/07/16 11:40 Bedside Glucose 200 mg/dl 152 mg/dl 144 mg/dl White Blood Count 8.56 K/uL Red Blood Count 2.96 M/uL Hemoglobin 9.0 g/dL Hematocrit 29.3 % Mean Corpuscular Volume 99.0 fL Mean Corpuscular Hemoglobin 30.4 pg Mean Corpuscular Hemoglobin Concent 30.7 g/dl RDW Standard Deviation 49.2 fL RDW Coefficient of Variation 13.6 % Platelet Count 202 K/uL Mean Platelet Volume 8.9 fL Sodium Level 140 mmol/L Potassium Level 4.6 mmol/L Chloride Level 100 mmol/L Carbon Dioxide Level 31 mmol/L Anion Gap 9.0 mmol/L Blood Urea Nitrogen 31 mg/dl Creatinine 0.90 mg/dl Est Creatinine Clear Calc Drug Dose 51.1 ml/min Estimated GFR () 72.0 Estimated GFR (Non- 62.1 BUN/Creatinine Ratio 34.2 Random Glucose 132 mg/dl Calcium Level 9.1 mg/dl Test 03/07/16 16:44 Bedside Glucose 137 mg/dl Assessment & Plan Acute on chronic hypoxemic respiratory failure Likely secondary to right pleural effusion Continue oxygen supplement Thoracic surgery consulted VATS and pleurodesis 03/02/16 Pulmonary consulted Leukocytosis Urinalysis unremarkable and urine culture no growth Blood cultures ngtd Resolved Constipation Continue docusate, senna, Miralax Enema PRN Lactulose PRN ALAINA Possibly due to previous low blood pressures, decreased PO intake Received gentle IVF's with improvement Avoid nephrotoxins Resolved HTN Hold amlodipine, carvedilol, hydralazine given low-normal blood pressures Small Cell Lung Cancer Stage IV Oncology consulted Recommended palliative treatment, to start as outpatient General surgery consulted for port placement - will proceed as outpatient Right Bundle Branch block Asymptomatic Continue rosuvastatin, aspirin; hold carvedilol given low-normal blood pressures TTE unremarkable COPD Continue Advair, duoneb and oxygen supplement Hypothyroidism Continue levothyroxine DVT prophylaxis with SCD's. Dispo: rehab Consultants: Thoracic surgery Oncology Pulmonary General surgery Procedures: ECHO: The left ventricle is normal in size. * There is mild concentric left ventricular hypertrophy. * The left ventricular wall motion is normal. * Left ventricular systolic function is normal. * Ejection Fraction = 55-60%. * The left atrium is moderately dilated. * Aortic valve sclerosis mild, without significant aortic valvular stenosis. * Mild aortic regurgitation. * There is mild mitral regurgitation. * There is mild to moderate tricuspid regurgitation. * Right ventricular systolic pressure is elevated at 40-50mmHg. * There is no pericardial effusion. CT chest 1. No CT evidence of acute pulmonary embolism 2. Moderate right pleural effusion with associated right middle lobe and lower lobe atelectasis 3. Persistent right hilar and mediastinal mass/adenopathy. There is secondary narrowing of the right upper lobe pulmonary artery. This mass/adenopathy is almost certainly neoplastic. Again pulmonary consultation for biopsy is recommended. CT a/p 1. No evidence of bowel obstruction. No evidence of free air 2. No acute inflammatory changes within the abdomen or pelvis 3. Pathologic mediastinal and right hilar adenopathy 4. Moderate right pleural effusion with right middle lobe and right lower lobe atelectatic change 5. Small pericardial effusion. Coronary artery calcifications. MRI brain 1. No evidence of metastatic disease. 2. No acute intracranial findings. 3. 1.5 x 0.4 x 1.4 cm left parafalcine lesion suggestive of a small meningioma. Bone scan No evidence of skeletal metastatic disease. Current Inpatient Medications: Current Inpatient Medications Medications (Trade) Dose Ordered Sig/Gilbert Route Start Time Stop Time Status Last Admin Dose Admin Albuterol/ Ipratropium (Duoneb) 3 ml Q2H PRN INH 02/27/16 19:45 03/28/16 19:44 03/06/16 22:25 3 ML Enoxaparin Sodium (Lovenox Inj) 40 mg Q24H SC 02/27/16 22:00 03/28/16 21:59 Future Hold 02/29/16 20:52 40 MG Acetaminophen (Tylenol Tab) 650 mg Q4H PRN PO 02/27/16 21:15 03/28/16 21:14 02/27/16 22:07 650 MG Amlodipine Besylate (Norvasc Tab) 2.5 mg QAM PO 02/28/16 09:00 03/29/16 08:59 Future Hold 03/03/16 08:46 2.5 MG Aspirin (Ecotrin Tab) 81 mg DAILY PO 02/28/16 09:00 03/29/16 08:59 03/07/16 08:19 81 MG Carvedilol (Coreg Tab) 50 mg BID PO 02/28/16 09:00 03/29/16 08:59 Future Hold 03/03/16 08:47 50 MG Salmeterol Xinafoate/ Fluticasone (Advair Diskus 250/50 Inh) 1 puff BID INH 02/28/16 09:00 03/29/16 08:59 03/07/16 08:19 1 PUFF Fluticasone Propionate (Flonase Nasal [place]) DAILY LATRICE 02/28/16 09:00 03/29/16 08:59 03/07/16 08:19 2 SPRAYS Hydralazine HCl (Apresoline Tab) 75 mg TID PO 02/28/16 09:00 03/29/16 08:59 Future Hold 03/03/16 08:46 75 MG Levothyroxine Sodium (Synthroid Tab) 137 mcg DAILYBB PO 02/28/16 06:30 03/29/16 06:29 03/07/16 06:11 137 MCG Loratadine (Claritin Tab) 10 mg DAILY PO 02/28/16 09:00 03/29/16 08:59 03/07/16 08:18 10 MG Sertraline HCl (Zoloft Tab) 25 mg DAILY PO 02/28/16 09:00 03/29/16 08:59 03/07/16 08:19 25 MG Rosuvastatin Calcium (Crestor Tab) 40 mg QAM PO 02/28/16 09:00 03/29/16 08:59 03/07/16 08:19 40 MG Insulin Aspart (novoLOG ASPART) SLIDING SCALE If C... ACHS SC 02/28/16 06:30 03/29/16 06:29 03/06/16 20:24 1 UNITS Glucose (Glucose 40% Gel) 15-30 GRAMS 15 GRAMS... UD PRN PO 02/27/16 23:45 03/28/16 23:44 Glucose (Glucose Chew Tab) 4-8 Tablets 4 Tabl... UD PRN PO 02/27/16 23:45 03/28/16 23:44 Dextrose (Dextrose 50% 50ML Syringe) 25-50ML OF 50% DW IV FOR... UD PRN IV 02/27/16 23:45 03/28/16 23:44 Glucagon (Glucagon Inj) 1 mg UD PRN SQ 02/27/16 23:45 03/28/16 23:44 Tramadol HCl (Ultram Tab) 25 mg Q6H PRN PO 02/27/16 23:45 03/28/16 23:44 03/07/16 08:26 25 MG Ondansetron HCl (Zofran Inj) 4 mg Q4H PRN IV 03/02/16 15:45 04/01/16 15:44 Docusate Sodium (coLACE CAP) 100 mg BID PO 03/02/16 21:00 04/01/16 20:59 03/07/16 08:18 100 MG Lactulose (Chronulac Syrup) 30 gm Q8 PRN PO 03/04/16 20:45 04/03/16 20:44 Miscellaneous Medication (Milk And Molasses Enema) 1 ea DAILY PRN [place] 03/04/16 21:00 04/03/16 20:59 Polyethylene (Miralax Powder Packet) 17 gm DAILY PO 03/08/16 09:00 04/07/16 08:59 Senna (Senokot Tab) 17.2 mg DAILY PO 03/08/16 09:00 04/07/16 08:59
[2016-03-07] MEDS ORDERED: LORAZEPAM 0.5 MG TAB PO ONE (22:11)
[2016-03-07] MEDS ORDERED: LORAZEPAM 0.5 MG TAB PO PRN (22:15)
[2016-03-07 23:42] VITALS: BP 121/64; PULSE 68; TEMP 36.7; O2SAT 97
[2016-03-08] VITALS: O2SAT 92
[2016-03-08] MEDS: TRAMADOL HCL 50 MG TAB PO PRN (00:02)
[2016-03-08] MEDS: LEVOTHYROXINE 137 MCG TAB PO SCH (06:32)
[2016-03-08 08:10] VITALS: BP 105/62; PULSE 66; TEMP 36.8; O2SAT 92
[2016-03-08] MEDS: ROSUVASTATIN CALCIUM 20 MG TAB PO SCH (09:24)
[2016-03-08] MEDS: LORATADINE 10 MG TAB PO SCH (09:25)
[2016-03-08] MEDS: SERTRALINE HCL 50 MG TAB PO SCH (09:25)
[2016-03-08] MEDS: FLUTICASONE/SALMETEROL 250/50 (ADVAIR) 14 PUFF/1 INHALER INH SCH ×2 (09:26→20:57)
[2016-03-08] MEDS: INSULIN ASPART 100 UNITS/ML 3 ML PEN SC SCH ×4 (09:26→20:58)
[2016-03-08] MEDS: DOCUSATE SODIUM 100 MG CAP PO SCH ×2 (09:26→20:58)
[2016-03-08] MEDS: FLUTICASONE PROPIONATE NA SPR 16 GM BTL NAE SCH (09:27)
[2016-03-08] MEDS: SENNA 8.6 MG TAB PO SCH (09:28)
[2016-03-08] MEDS: ASPIRIN 81 MG ECTAB PO SCH (09:29)
[2016-03-08] MEDS: POLYETHYLENE (MIRALAX) 17 GM PACK PO SCH (09:30)
--- NOTE | 2016-03-08 13:00 | Surgery Progress Note ---
Subjective Date of Service: Mar 08, 2016. Pt. notes some SOB with activity but is comfortable at rest. Objective Vitals Date Time Temp Pulse Resp B/P Pulse Ox O2 Delivery O2 Flow Rate FiO2 03/08/16 08:10 36.8 66 20 105/62 92 Nasal Cannula 4.0 03/08/16 07:37 Nasal Cannula 4.0 03/08/16 00:00 92 Humidified Oxygen 4.0 03/07/16 23:42 36.7 68 16 121/64 97 Humidified Oxygen 4.0 03/07/16 16:15 Nasal Cannula 4.0 03/07/16 15:29 37.0 68 20 127/74 97 Nasal Cannula 2.0 Physical Exam General: + well developed, + well nourished, No distress CV: + RRR Pulmonary: No accessory muscle use, No pertinent finding (decreased at right base), No respiratory distress Extremities: No calf tenderness Neurologic: + alert & oriented x 3 Assessment & Plan 75 year old female with malignant pleural effusion -pt. underwent drainage of effusion, talc pleurodesis (03/02/16) -final chest tube removed (03/05/16) -after d/c will arrange for pt. to be seen in office in 2 weeks with repeat CXR
[2016-03-08] MEDS: ACETAMINOPHEN 325 MG TAB PO PRN (15:02)
[2016-03-08 15:21] VITALS: BP 144/78; PULSE 75; TEMP 36.9; O2SAT 94
[2016-03-08] MEDS ORDERED: BOOST VANILLA PO SCH ×2 (19:00)
[2016-03-08 19:52] VITALS: BP 132/74; PULSE 65; TEMP 36.6; O2SAT 96
--- NOTE | 2016-03-08 20:50 | Progress Note ---
Medicine Progress Note Date & Time of Visit: Mar 08, 2016 at 20:48. Subjective Patient seen and examined. Slowly ambulating hallways. Objective Last 8 Hrs Date Time Temp Pulse Resp B/P Pulse Ox O2 Delivery O2 Flow Rate FiO2 03/08/16 19:52 36.6 65 22 132/74 96 Nasal Cannula 4.0 03/08/16 15:54 Nasal Cannula 4.0 03/08/16 15:21 36.9 75 18 144/78 94 Nasal Cannula 4.0 Physical Exam: General-awake; alert; NAD Eyes-EOMI; no scleral icterus Neck-no stridor; trachea midline Lungs-CTA on the left; diminished breath sounds on right Heart-RRR; no m/r/g Abdomen-soft; NTND; nBS Neuro-no gross focal deficits Laboratory Results: Last 24 Hours Test 03/08/16 07:36 03/08/16 11:34 03/08/16 16:14 Bedside Glucose 127 mg/dl 195 mg/dl 147 mg/dl Assessment & Plan Acute on chronic hypoxemic respiratory failure Likely secondary to right pleural effusion Continue oxygen supplement Thoracic surgery consulted; plan for follow up in 2 weeks post discharge VATS and pleurodesis 03/02/16 Pulmonary consulted Leukocytosis Urinalysis unremarkable and urine culture no growth Blood cultures ngtd Resolved Constipation Improved Continue docusate, senna, Miralax Enema PRN Lactulose PRN ALAINA Possibly due to previous low blood pressures, decreased PO intake Received gentle IVF's with improvement Avoid nephrotoxins Resolved HTN Hold amlodipine, carvedilol, hydralazine given low-normal blood pressures Small Cell Lung Cancer Stage IV Oncology consulted Recommended palliative treatment, to start as outpatient General surgery consulted for port placement - will proceed as outpatient Right Bundle Branch block Asymptomatic Continue rosuvastatin, aspirin; hold carvedilol given low-normal blood pressures TTE unremarkable COPD Continue Advair, duoneb and oxygen supplement Hypothyroidism Continue levothyroxine DVT prophylaxis with SCD's. Dispo: rehab Anticipate discharge tomorrow Consultants: Thoracic surgery Oncology Pulmonary General surgery Procedures: ECHO: The left ventricle is normal in size. * There is mild concentric left ventricular hypertrophy. * The left ventricular wall motion is normal. * Left ventricular systolic function is normal. * Ejection Fraction = 55-60%. * The left atrium is moderately dilated. * Aortic valve sclerosis mild, without significant aortic valvular stenosis. * Mild aortic regurgitation. * There is mild mitral regurgitation. * There is mild to moderate tricuspid regurgitation. * Right ventricular systolic pressure is elevated at 40-50mmHg. * There is no pericardial effusion. CT chest 1. No CT evidence of acute pulmonary embolism 2. Moderate right pleural effusion with associated right middle lobe and lower lobe atelectasis 3. Persistent right hilar and mediastinal mass/adenopathy. There is secondary narrowing of the right upper lobe pulmonary artery. This mass/adenopathy is almost certainly neoplastic. Again pulmonary consultation for biopsy is recommended. CT a/p 1. No evidence of bowel obstruction. No evidence of free air 2. No acute inflammatory changes within the abdomen or pelvis 3. Pathologic mediastinal and right hilar adenopathy 4. Moderate right pleural effusion with right middle lobe and right lower lobe atelectatic change 5. Small pericardial effusion. Coronary artery calcifications. MRI brain 1. No evidence of metastatic disease. 2. No acute intracranial findings. 3. 1.5 x 0.4 x 1.4 cm left parafalcine lesion suggestive of a small meningioma. Bone scan No evidence of skeletal metastatic disease. Current Inpatient Medications: Current Inpatient Medications Medications (Trade) Dose Ordered Sig/Gilbert Route Start Time Stop Time Status Last Admin Dose Admin Albuterol/ Ipratropium (Duoneb) 3 ml Q2H PRN INH 02/27/16 19:45 03/28/16 19:44 03/06/16 22:25 3 ML Enoxaparin Sodium (Lovenox Inj) 40 mg Q24H SC 02/27/16 22:00 03/28/16 21:59 Future Hold 02/29/16 20:52 40 MG Acetaminophen (Tylenol Tab) 650 mg Q4H PRN PO 02/27/16 21:15 03/28/16 21:14 03/08/16 15:02 650 MG Amlodipine Besylate (Norvasc Tab) 2.5 mg QAM PO 02/28/16 09:00 03/29/16 08:59 Future Hold 03/03/16 08:46 2.5 MG Aspirin (Ecotrin Tab) 81 mg DAILY PO 02/28/16 09:00 03/29/16 08:59 03/08/16 09:29 81 MG Carvedilol (Coreg Tab) 50 mg BID PO 02/28/16 09:00 03/29/16 08:59 Future Hold 03/03/16 08:47 50 MG Salmeterol Xinafoate/ Fluticasone (Advair Diskus 250/50 Inh) 1 puff BID INH 02/28/16 09:00 03/29/16 08:59 03/08/16 09:26 1 PUFF Fluticasone Propionate (Flonase Nasal [place]) DAILY LATRICE 02/28/16 09:00 03/29/16 08:59 03/08/16 09:27 2 SPRAYS Hydralazine HCl (Apresoline Tab) 75 mg TID PO 02/28/16 09:00 03/29/16 08:59 Future Hold 03/03/16 08:46 75 MG Levothyroxine Sodium (Synthroid Tab) 137 mcg DAILYBB PO 02/28/16 06:30 03/29/16 06:29 03/08/16 06:32 137 MCG Loratadine (Claritin Tab) 10 mg DAILY PO 02/28/16 09:00 03/29/16 08:59 03/08/16 09:25 10 MG Sertraline HCl (Zoloft Tab) 25 mg DAILY PO 02/28/16 09:00 03/29/16 08:59 03/08/16 09:25 25 MG Rosuvastatin Calcium (Crestor Tab) 40 mg QAM PO 02/28/16 09:00 03/29/16 08:59 03/08/16 09:24 40 MG Insulin Aspart (novoLOG ASPART) SLIDING SCALE If C... ACHS SC 02/28/16 06:30 03/29/16 06:29 03/08/16 12:55 1 UNITS Glucose (Glucose 40% Gel) 15-30 GRAMS 15 GRAMS... UD PRN PO 02/27/16 23:45 03/28/16 23:44 Glucose (Glucose Chew Tab) 4-8 Tablets 4 Tabl... UD PRN PO 02/27/16 23:45 03/28/16 23:44 Dextrose (Dextrose 50% 50ML Syringe) 25-50ML OF 50% DW IV FOR... UD PRN IV 02/27/16 23:45 03/28/16 23:44 Glucagon (Glucagon Inj) 1 mg UD PRN SQ 02/27/16 23:45 03/28/16 23:44 Tramadol HCl (Ultram Tab) 25 mg Q6H PRN PO 02/27/16 23:45 03/28/16 23:44 03/08/16 00:02 25 MG Ondansetron HCl (Zofran Inj) 4 mg Q4H PRN IV 03/02/16 15:45 04/01/16 15:44 Docusate Sodium (coLACE CAP) 100 mg BID PO 03/02/16 21:00 04/01/16 20:59 03/08/16 09:26 100 MG Lactulose (Chronulac Syrup) 30 gm Q8 PRN PO 03/04/16 20:45 04/03/16 20:44 Miscellaneous Medication (Milk And Molasses Enema) 1 ea DAILY PRN [place] 03/04/16 21:00 04/03/16 20:59 Polyethylene (Miralax Powder Packet) 17 gm DAILY PO 03/08/16 09:00 04/07/16 08:59 03/08/16 09:30 17 GM Senna (Senokot Tab) 17.2 mg DAILY PO 03/08/16 09:00 04/07/16 08:59 03/08/16 09:28 17.2 MG Lorazepam (Ativan Tab) 0.5 mg Q6H PRN PO 03/07/16 22:15 04/06/16 22:14 Enteral Nutritional Formula (Boost) 1 can DAILY@1900 PO 03/08/16 19:00 04/07/16 18:59
[2016-03-08 23:35] VITALS: BP 97/53; PULSE 79; TEMP 36.7; O2SAT 90
[2016-03-09] MEDS: ACETAMINOPHEN 325 MG TAB PO PRN (00:34)
[2016-03-09] MEDS: ALBUT/IPRATROP 3MG/0.5MG NEB 3 ML VIAL INH PRN (03:23)
[2016-03-09 03:24] VITALS: PULSE 72; O2SAT 93
[2016-03-09] MEDS: LEVOTHYROXINE 137 MCG TAB PO SCH (06:02)
[2016-03-09 07:49] VITALS: BP 102/69; PULSE 67; TEMP 37.2; O2SAT 91
[2016-03-09] MEDS: POLYETHYLENE (MIRALAX) 17 GM PACK PO SCH ×2 (08:00→08:42)
[2016-03-09] MEDS: TRAMADOL HCL 50 MG TAB PO PRN (08:16)
[2016-03-09] MEDS: INSULIN ASPART 100 UNITS/ML 3 ML PEN SC SCH (08:30)
[2016-03-09] MEDS: FLUTICASONE PROPIONATE NA SPR 16 GM BTL NAE SCH (08:40)
[2016-03-09] MEDS: LORATADINE 10 MG TAB PO SCH (08:41)
[2016-03-09] MEDS: DOCUSATE SODIUM 100 MG CAP PO SCH (08:41)
[2016-03-09] MEDS: ASPIRIN 81 MG ECTAB PO SCH (08:42)
[2016-03-09] MEDS: ROSUVASTATIN CALCIUM 20 MG TAB PO SCH (08:42)
[2016-03-09] MEDS: SERTRALINE HCL 50 MG TAB PO SCH (08:43)
[2016-03-09] MEDS: SENNA 8.6 MG TAB PO SCH (08:43)
[2016-03-09] MEDS ORDERED: Enteral Nutrition Formula PO (09:50)
[2016-03-09] MEDS ORDERED: IPRASOL4 INH (09:50)
[2016-03-09] MEDS ORDERED: ADVIN25050 PO (09:50)
[2016-03-09] MEDS ORDERED: MRLP17 PO (09:50)
[2016-03-09] MEDS ORDERED: CRS20 PO (09:50)
[2016-03-09] MEDS ORDERED: OXGN (09:50)
[2016-03-09] MEDS ORDERED: CLC100 PO (09:50)
[2016-03-09] MEDS ORDERED: NVLGIPEN SC (09:50)
[2016-03-09] MEDS ORDERED: ATV5 PO (09:50)
[2016-03-09] MEDS ORDERED: ULT50X PO (09:50)
[2016-03-09] MEDS ORDERED: TYL325X PO (09:50)
[2016-03-09] MEDS ORDERED: SNK PO (09:50)
--- NOTE | 2016-03-09 09:58 | Discharge Instructions ---
Discharge Instructions Admission Reason for Admission: Respiratory Failure,Acute Discharge Discharge Diagnosis / Problem: Metastatic Lung Cancer Discharge Goals Goal(s): Increase independence, Therapeutic intervention Activity Recommendations Activity Limitations: resume your previous activity . Instructions / Follow-Up Instructions / Follow-Up General Surgery Appointment Information with Dr. Urban Address: [address] [facility] , [place] [address] Date: 03/10/2016 Time: 11:45 Oncology Appointment Information with Dr. Veto Ortega Address: [address] [facility] , [place] [address] Date: 03/16/16 Time: 09:15 labs 09:45 Dr. Veto Ortega 10:15 C1 D1 Carbo/Etoposide (4hours) [address] Surgery Appointment Information with Dr. Butts Address: [address] [place] [address] Date: 03/23/2016 Time: 10:15 Current Hospital Diet Patient's current hospital diet: Regular Diet Discharge Diet Recommended Diet: Regular Diet Procedures Procedures Performed: Right Thoracoscopy, lysis of adhesions, limited pleurectomy, with TALC Pleurodesis Pending Studies Studies pending at discharge: no Laboratory Results Hemoglobin A1c Test 02/22/16 07:20 Range/Units Estimated Average Glucose 134 mg/dl Hemoglobin A1c 6.3 H 4.5-5.6 % Medical Emergencies . Who to Call and When: Medical Emergencies: If at any time you feel your situation is an emergency, please call 911 immediately. . Non-Emergent Contact Non-Emergency issues call your: Primary Care Provider, Oncologist . . "Provider Documentation" section prepared by Lexy Stewart. VTE Core Measure Inpt VTE Proph given/why not?: SCD's
--- NOTE | 2016-03-09 09:59 | Discharge Summary ---
Discharge Summary Admission Date: Feb 27, 2016 at 19:58 Discharge Date: Mar 09, 2016 Discharge Disposition: [facility] facility Principal Diagnosis: Metastatic Lunch Cancer Procedures: ECHO: The left ventricle is normal in size. * There is mild concentric left ventricular hypertrophy. * The left ventricular wall motion is normal. * Left ventricular systolic function is normal. * Ejection Fraction = 55-60%. * The left atrium is moderately dilated. * Aortic valve sclerosis mild, without significant aortic valvular stenosis. * Mild aortic regurgitation. * There is mild mitral regurgitation. * There is mild to moderate tricuspid regurgitation. * Right ventricular systolic pressure is elevated at 40-50mmHg. * There is no pericardial effusion. CT chest 1. No CT evidence of acute pulmonary embolism 2. Moderate right pleural effusion with associated right middle lobe and lower lobe atelectasis 3. Persistent right hilar and mediastinal mass/adenopathy. There is secondary narrowing of the right upper lobe pulmonary artery. This mass/adenopathy is almost certainly neoplastic. Again pulmonary consultation for biopsy is recommended. CT a/p 1. No evidence of bowel obstruction. No evidence of free air 2. No acute inflammatory changes within the abdomen or pelvis 3. Pathologic mediastinal and right hilar adenopathy 4. Moderate right pleural effusion with right middle lobe and right lower lobe atelectatic change 5. Small pericardial effusion. Coronary artery calcifications. MRI brain 1. No evidence of metastatic disease. 2. No acute intracranial findings. 3. 1.5 x 0.4 x 1.4 cm left parafalcine lesion suggestive of a small meningioma. Bone scan No evidence of skeletal metastatic disease. Right Thoracoscopy, lysis of adhesions, limited pleurectomy, with TALC Pleurodesis Consultations: Thoracic surgery Oncology Pulmonary General surgery Medication Reconciliation New Medications: Acetaminophen (Tylenol) 325 Mg Tab 650 MG PO Q4H PRN for Pain or Fever for 30 Days, TAB Docusate Sodium (Docusate Sodium) 100 Mg Cap 100 MG PO BID for 30 Days, CAP Insulin Aspart (Novolog Flexpen) 100 Units/Ml Inj 0 UNITS SC ACHS for 30 Days Goal range 140-180 Correction factor of 50 No CHO ratio Ipratropium-Albuterol (Duoneb) 3 Ml Nebu 3 ML INH Q4H PRN for sob for 30 Days Lorazepam (Lorazepam) 0.5 Mg Tab 0.5 MG PO Q6H PRN for Anxiety for 30 Days, #120 TAB Polyethylene (Miralax) 17 Gm Pow 17 GM PO DAILY for 30 Days Rosuvastatin Calcium (Crestor) 20 Mg Tab 40 MG PO QAM for 30 Days, TAB Senna (Senna Lax) 8.6 Mg Tab 17.2 MG PO DAILY for 30 Days, TAB Tramadol HCl (Tramadol HCl) 50 Mg Tab 25 MG PO Q6H PRN for Pain for 30 Days, #60 TAB [Enteral Nutrition Formula] () 1 CAN LIQD 1 CAN PO DAILY@1900 for 30 Days Changed Medications: Fluticasone Prop/Salmeterol (Advair Diskus 250-50 Mcg/Dose) 14 Puff/1 Inhaler Aerp 1 PUFF PO BID for 30 Days (Changed from: DAILY) Oxygen (Oxygen) Gas 4 LITERS NA CONTINOUS for 30 Days (Changed from: 2 LITERS; HS) Continued Medications: Aspirin Enteric Coated (Ecotrin Or Generic) 81 Mg Tab 81 MG PO DAILY, TAB Cholecalciferol (Vitamin D3) 1,000 Unit Tab 1 TAB PO DAILY Cyanocobalamin (Vitamin B-12) 1,000 Mcg Tab 1000 MCG PO DAILY, 0 Refills Fluticasone Propionate (Fluticasone Propionate) 120 Sprays/6000 Mcg Inha 2 SPRAY LATRICE DAILY, #16 Iron-Vitamin C (Vitron-C) 1 Tab Tab 1 TAB PO DAILY Levothyroxine Sodium (Levothyroxine Sodium) 137 Mcg Tab 137 MCG PO DAILY Loratadine (Ra Loratadine) 10 Mg Tab 10 MG PO DAILY, #30 Sertraline HCl (Sertraline HCl) 25 Mg Tab 25 MG PO DAILY, #15 Discontinued Medications: Amlodipine Besylate (Amlodipine Besylate) 5 Mg Tab 2.5 MG PO QAM for 30 Days, #15 TAB Carvedilol (Coreg) 25 Mg Tab 50 MG PO BID, TAB Glipizide (Glipizide Er) 5 Mg Tab 5 MG PO DAILY, #90 Hydralazine HCl (Hydralazine HCl) 50 Mg Tab 75 MG PO TID for 30 Days, TAB 2 Refills Ipratropium-Albuterol (Combivent Respimat) 1 Aer Aer 1 PUFFS INH QID for 30 Days, #1 INH Rosuvastatin Calcium (Rosuvastatin Calcium) Unknown Strength Tab Unknown Dose Admission Information HPI (per Admitting provider): Medical history significant for chronic hypoxemic respiratory failure secondary to COPD on home O2, past tobacco abuse, hypertension, peripheral vascular disease, DM2 on oral meds, recent diagnosis of small cell lung cancer. Recent confinement last week for pleural effusion, likely malignant. Thoracenteses done. 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 Findings disclosed to the patient 2 days ago by PCP. Yesterday patient noted sudden shortness of breath, no chest pain, no cough symptoms. Patient complaining of some achy left-sided abdominal pain. Brought to the Emergency Room. O2 sats 86 on nasal cannula. Denies weight gain. Physical Exam (per Admitting): VITAL SIGNS: Blood pressure was noted to be 100/50, pulse rate 72, respiratory rate 18, temperature 36.9, sats 86 on 2 liters. GENERAL: Noted to be in minimal respiratory distress, looks younger for stated age. SKIN pallor HEENT: Pale palpebral conjunctivae. Dry buccal mucosa. nasal cannula in place NECK: No JVD. Supple. CHEST: Decreased breath sounds,R. HEART: Regular rate and rhythm. ABDOMEN: Minimal tenderness on the LUQ. EXTREMITIES: No edema, tenderness. NEUROLOGIC: No gross focality. Hospital Course Patient has known metastatic lung cancer with recurrent malignant pleural effusion. Thoracic surgery was consulted and performed VATS and pleurodesis on . Pulmonary and Oncology were also consulted and patient had workup of metastatic lung cancer. General surgery was consulted. Patient will follow up with General surgery on 03/10 to plan for port placement on 03/12. Patient will then follow up with Oncology on 03/16 to start chemotherapy. Patient requires 4L NC continuously. Patient did have a leukocytosis during hospitalization. Blood cultures and urine culture were negative. Patient remained afebrile. Leukocytosis resolved. Patient also had constipation. Bowel regimen was titrated to Docusate, Senna and Miralax. Hospital course notable for ALAINA. This was likely due to episode of hypotension. All of patient's antihypertensives were held (amlodipine, carvedilol and hydralazine). Patient received gentle IVF's with resolution of ALAINA and improvement of blood pressure. Patient remained normotensive off antihypertensives and so they were discontinued upon discharge. Patient was continued on the remainder of her home medications with the exceptions noted above. Patient deemed stable for discharge to [facility] with follow up with General surgery, Oncology and CT surgery. PE on discharge: General- awake; alert; NAD Eyes- EOMI; no scleral icterus Neck- no stridor; trachea midline Lungs- diminished breath sounds right side; left CTA Heart- RRR Abdomen- soft; NTND; nBS Back- no gross abnormalities Extremities- no c/c/e; no deformity Neuro- no gross focal deficits Skin- +bruising to right lateral chest wall; chest tube incision sites c/d/i . Total time spent on discharge = This includes examination of the patient, discharge planning, medication reconciliation, and communication with other providers. Discharge Instructions Discharge Instructions Admission Reason for Admission: Respiratory Failure,Acute Discharge Discharge Diagnosis / Problem: Metastatic Lung Cancer Discharge Goals Goal(s): Increase independence, Therapeutic intervention Activity Recommendations Activity Limitations: resume your previous activity . Instructions / Follow-Up Instructions / Follow-Up General Surgery Appointment Information with Dr. Urban Address: [address] [place], [place] [address], [place] [address] Date: 03/10/2016 Time: 11:45 Oncology Appointment Information with Dr. Veto Ortega Address: [address] [facility], [place] [address] Date: 03/16/16 Time: 09:15 labs 09:45 Dr. Veto Ortega 10:15 C1 D1 Carbo/Etoposide (4hours) [address] Surgery Appointment Information with Dr. Butts Address: [address] [place] [address] Date: 03/23/2016 Time: 10:15 Current Hospital Diet Patient's current hospital diet: Regular Diet Discharge Diet Recommended Diet: Regular Diet Procedures Procedures Performed: Right Thoracoscopy, lysis of adhesions, limited pleurectomy, with TALC Pleurodesis Pending Studies Studies pending at discharge: no Laboratory Results Hemoglobin A1c Test 02/22/16 07:20 Range/Units Estimated Average Glucose 134 mg/dl Hemoglobin A1c 6.3 H 4.5-5.6 % Medical Emergencies . Who to Call and When: Medical Emergencies: If at any time you feel your situation is an emergency, please call 911 immediately. . Non-Emergent Contact Non-Emergency issues call your: Primary Care Provider, Oncologist . . "Provider Documentation" section prepared by Lexy Stewart. VTE Core Measure Inpt VTE Proph given/why not?: SCD's Additional Copies To Callie Verdugo M.D.
[2016-03-09 10:21] VITALS: BP 102/69; PULSE 67; TEMP 37.2; O2SAT 91
--- NOTE | 2016-03-09 18:46 | SURGERY PROGRESS NOTE ---
DATE: 03/09/2016 SUBJECTIVE: She is status post a right thoracoscopy with a pleurectomy and a drainage of her loculated pleural effusion. Initially I was quite happy with the patient. Her x-ray looked better and I thought she looked better; however, after removing her chest tube she has had reaccumulation of some of the fluid in her chest. She has small cell lung carcinoma and is going to require treatment. We had a long talk about this and she is being discharged today and will receive treatment. I suspect she is going to improve with this. She states subjectively she is better from her dyspnea standpoint. I will see her back in the office in about 2 weeks and we will of course be glad to address her should this fluid cause a problem. MEREDITH
[2016-03-11] MEDS ORDERED: SODIENE PR (09:46)
[2016-03-11] MEDS ORDERED: TRAM-10 PO (09:46)
[2016-03-11] MEDS ORDERED: ACET-1311 PO (09:46)
[2016-03-11] MEDS ORDERED: BISA10SU38 PR (09:46)
[2016-03-11] MEDS ORDERED: NVLG SQ (09:46)
[2016-03-11] MEDS ORDERED: POLY335019 PO (09:46)
[2016-03-11] MEDS ORDERED: SENN-61 PO (09:46)
[2016-03-11] MEDS ORDERED: LORA-741 PO (09:46)
[2016-03-11] MEDS ORDERED: MOMLX PO (09:46)
[2016-03-11] MEDS ORDERED: VNTHFA/IN INH (09:46)
[2016-03-11] MEDS ORDERED: IPRASOL4 INH (09:46)
[2016-03-11] MEDS ORDERED: ROSU20TA PO (09:46)
[2016-03-11] MEDS ORDERED: DOCU100C31 PO (09:46)
[2016-03-15] MEDS ORDERED: OXYC-57 PO (08:01)
[2016-04-28] MEDS ORDERED: POTA20TA16 PO (09:42)
[2016-04-28] MEDS ORDERED: PROC1TAB5 PO (09:42)
[2016-04-28] MEDS ORDERED: GUAI1TAB75 PO (09:42)
[2016-05-12] MEDS ORDERED: DXY100 PO (15:17)
[2016-05-12] MEDS ORDERED: TMFUDL30 PO (15:17)
[2016-05-12] MEDS ORDERED: CEFD300C2 PO (15:19)
[2016-08-10] MEDS ORDERED: CHOL1000 PO (09:36)
[2016-08-10] MEDS ORDERED: SPIR25TA PO (09:42)
[2016-08-10] MEDS ORDERED: FRS/40 PO ×2 (09:42→17:54)
[2016-08-10] MEDS ORDERED: ADVIN25/60 INH (09:46)
[2016-08-10] MEDS ORDERED: CYAN10005 PO (10:36)
[2016-08-10] MEDS ORDERED: ASPI81TA21 PO (17:15)
[2016-08-10] MEDS ORDERED: ROSU40TA PO (17:54)
[2016-08-10] MEDS ORDERED: GLIP10TA9 PO (17:57)
[2016-08-10] MEDS ORDERED: OMEP40CA41 PO (17:57)
[2016-08-10] MEDS ORDERED: CARV25TA PO (17:57)
[2016-08-10] MEDS ORDERED: SILD1TAB39 PO (17:57)
[2016-08-10] MEDS ORDERED: HYDR-4717 PO (17:57)
== END 2016-03-09 11:00 | DRG 163 ==
LOC: ENRESERVDT → ENRESERVTM → C.EDB 15:39 → C.MED 19:58 → C.MS4W 03-09 00:07
PROVIDERS: ADMIT Internal Medicine; ATTEND Internal Medicine
PROC: 3E0L3TZ Introduction of Destructive Agent into Pleural Cavity, Percutaneous Approach (ICD-10-PCS; 2016-03-02)
PROC: 0BBN4ZZ Excision of Right Pleura, Percutaneous Endoscopic Approach (ICD-10-PCS; principal; 2016-03-02 13:30)
DX: C34.90 Malignant neoplasm of unspecified part of unspecified bronchus or lung (principal); J96.21 Acute and chronic respiratory failure with hypoxia; J91.0 Malignant pleural effusion; J44.1 Chronic obstructive pulmonary disease with (acute) exacerbation; J98.11 Atelectasis; N17.9 Acute kidney failure, unspecified; I45.10 Unspecified right bundle-branch block; K59.00 Constipation, unspecified; Z99.81 Dependence on supplemental oxygen; E11.9 Type 2 diabetes mellitus without complications; I27.2 Other secondary pulmonary hypertension; I49.3 Ventricular premature depolarization; I12.9 Hypertensive chronic kidney disease with stage 1 through stage 4 chronic kidney disease, or unspecified chronic kidney disease; N18.9 Chronic kidney disease, unspecified; Z82.49 Family history of ischemic heart disease and other diseases of the circulatory system; Z83.3 Family history of diabetes mellitus; Z80.1 Family history of malignant neoplasm of trachea, bronchus and lung; Z87.891 Personal history of nicotine dependence; E03.9 Hypothyroidism, unspecified; J43.9 Emphysema, unspecified; I50.9 Heart failure, unspecified; K21.9 Gastro-esophageal reflux disease without esophagitis; Z86.73 Personal history of transient ischemic attack (TIA), and cerebral infarction without residual deficits; I08.3 Combined rheumatic disorders of mitral, aortic and tricuspid valves; E78.00 Pure hypercholesterolemia, unspecified; Z79.4 Long term (current) use of insulin; Z79.82 Long term (current) use of aspirin

== ENCOUNTER 2016-03-15 04:47 | Day surgery (SDC) | payer OTHER ==
[2016-03-11 09:46] VITALS: BMI 32.0
--- NOTE | 2016-03-11 10:15 | PAT Medication Instructions ---
Service Date Mar 11, 2016. Current Home Medication List Acetaminophen (Tylenol), 650 MG PO Q6H PRN for Pain or Fever Albuterol Hfa (Ventolin Hfa), 2-4 PUFFS INH Q6H PRN for Shortness of Breath Aspirin Enteric Coated (Ecotrin Or Generic), 81 MG PO QAM Bisacodyl (Dulcolax), 1 SUPP FL UD Cholecalciferol (Vitamin D3), 1 TAB PO QAM Cyanocobalamin (Vitamin B-12), 1,000 MCG PO QAM Docusate Sodium (Docusate Sodium), 1 CAP PO BID Fluticasone Prop/Salmeterol (Advair Diskus 250/50 60 Dose), 1 PUFF INH BID Fluticasone Propionate (Fluticasone Propionate), 2 SPRAY LATRICE QPM Insulin Aspart (Novolog), 1 DOSE SQ ACHS Ipratropium-Albuterol (Duoneb), 1 TREATMENT INH Q6H Iron-Vitamin C (Vitron-C), 1 TAB PO QAM Levothyroxine Sodium (Levothyroxine Sodium), 137 MCG PO QAM Loratadine (Ra Loratadine), 10 MG PO QAM Lorazepam (Ativan), 0.5 MG PO Q6H Magnesium Hydroxide (Milk of Magnesia), 1 DOSE PO DAILY PRN for CONSTIPATION Polyethylene Glycol 3350 (Miralax), 17 GM PO QAM Rosuvastatin Calcium (Crestor), 20 MG PO QAM Senna (Senokot), 1 TAB PO QAM Sertraline HCl (Sertraline HCl), 25 MG PO QAM Sodium Phosphate/Biphosphate (Fleet Enema), 1 EA FL DAILY PRN for CONSTIPATION Tramadol (Ultram), 50 MG PO Q8H PRN for Pain Medication Instructions For Your Scheduled Surgery - Check with surgeon for instructions (okay from anesthesia perspective to continue as directed) Aspirin Enteric Coated (Ecotrin Or Generic), 81 MG PO QAM - Hold the following medications the morning of surgery: Sodium Phosphate/Biphosphate (Fleet Enema), 1 EA FL DAILY PRN for CONSTIPATION Senna (Senokot), 1 TAB PO QAM Polyethylene Glycol 3350 (Miralax), 17 GM PO QAM Loratadine (Ra Loratadine), 10 MG PO QAM Iron-Vitamin C (Vitron-C), 1 TAB PO QAM Insulin Aspart (Novolog), 1 DOSE SQ ACHS Docusate Sodium (Docusate Sodium), 1 CAP PO BID Cholecalciferol (Vitamin D3), 1 TAB PO QAM Cyanocobalamin (Vitamin B-12), 1,000 MCG PO QAM Bisacodyl (Dulcolax), 1 SUPP FL UD - Take the following medications the morning of surgery with a sip of water: Tramadol (Ultram), 50 MG PO Q8H PRN for Pain (okay to take up to 4 hours prior to surgery if needed) Sertraline HCl (Sertraline HCl), 25 MG PO QAM Rosuvastatin Calcium (Crestor), 20 MG PO QAM Lorazepam (Ativan), 0.5 MG PO Q6H Levothyroxine Sodium (Levothyroxine Sodium), 137 MCG PO QAM Ipratropium-Albuterol (Duoneb), 1 TREATMENT INH Q6H Fluticasone Prop/Salmeterol (Advair Diskus 250/50 60 Dose), 1 PUFF INH BID Albuterol Hfa (Ventolin Hfa), 2-4 PUFFS INH Q6H PRN for Shortness of Breath Acetaminophen (Tylenol), 650 MG PO Q6H PRN for Pain or Fever - Take the following medications as scheduled the night before surgery: Sodium Phosphate/Biphosphate (Fleet Enema), 1 EA FL DAILY PRN for CONSTIPATION Tramadol (Ultram), 50 MG PO Q8H PRN for Pain Lorazepam (Ativan), 0.5 MG PO Q6H Ipratropium-Albuterol (Duoneb), 1 TREATMENT INH Q6H Insulin Aspart (Novolog), 1 DOSE SQ ACHS Fluticasone Propionate (Fluticasone Propionate), 2 SPRAY LATRICE QPM Fluticasone Prop/Salmeterol (Advair Diskus 250/50 60 Dose), 1 PUFF INH BID Docusate Sodium (Docusate Sodium), 1 CAP PO BID Albuterol Hfa (Ventolin Hfa), 2-4 PUFFS INH Q6H PRN for Shortness of Breath Acetaminophen (Tylenol), 650 MG PO Q6H PRN for Pain or Fever If you have any questions please call us at [phone] (Viv Escobar PA-C) or [phone] or [phone]
[~2016-03-15] VITALS: Ht 154.9 cm; Wt 78.2 kg
[~2016-03-15 04:47] MED LIST changes: +ACET-1311 PO; -ADVIN25050 PO; -APR50 PO; -ASPEC81 PO; +BISA10SU38 PR; -CARV25TA2 PO; -CRSUNK PO; +DOCU100C31 PO; -GLIP-197 PO; -IPRA1AER2 INH; +IPRASOL4 INH; -LEVO1TAB PO; +LORA-741 PO; +MOMLX PO; -NRV5 PO; +NVLG SQ; -OXGN; +POLY335019 PO; +ROSU20TA PO; +SENN-61 PO; +SODIENE PR; +SYN137 PO; +TRAM-10 PO; +VNTHFA/IN INH
[2016-03-15 05:44] VITALS: BP 165/80; PULSE 92; TEMP 37.3; O2SAT 92; Ht 154.9 cm; Wt 78.2 kg
[2016-03-15] MEDS ORDERED: LACTATED RINGER'S 1000ML 1,000 ML IV SCH ×2 (06:00)
[2016-03-15] MEDS ORDERED: CEFAZOLIN 2000 MG/60 ML D5W IV SCH (06:00)
[2016-03-15] MEDS ORDERED: FERRTAB18 PO (06:30)
[2016-03-15] MEDS ORDERED: OXGN (06:30)
[2016-03-15] MEDS ORDERED: humalog SQ (06:30)
[2016-03-15] MEDS ORDERED: LIDOCAINE/EPINEPHRINE 1% 20 ML VIAL ONE (06:43)
[2016-03-15] MEDS ORDERED: FENTANYL CITRATE INJ 50 MCG/1 ML 2 ML VIAL ONE (06:44)
[2016-03-15] MEDS ORDERED: MIDAZOLAM HCL 1 MG/ML 2ML VIAL ONE ×2 (06:44)
[2016-03-15] MEDS ORDERED: ONDANSETRON INJ 2 MG/ML 2 ML VIAL IV PRN (06:45)
[2016-03-15] MEDS ORDERED: MoRPHine SULFATE 2 MG/ML CARP IV PRN ×2 (06:45→07:15)
[2016-03-15] MEDS ORDERED: OXYCODONE/ACETAMINOPHEN 5-325 TAB PO PRN (06:45)
[2016-03-15] MEDS ORDERED: PROPOFOL IV EMULSION 10 MG/ML 20 ML VIAL IV ONE (07:17)
[2016-03-15] MEDS ORDERED: LIDOCAINE/EPINEPHRINE 1% 20 ML VIAL INJ ONE (07:47)
[2016-03-15] MEDS ORDERED: [UNRECOGNIZED DRUG - OTHER] INSTIL ONE (07:48)
--- NOTE | 2016-03-15 07:59 | [facility] Post Operative Brief Note ---
Immediate Operative Summary Operative Date Mar 15, 2016. Pre-Operative Diagnosis small cell lung cancer Post-Operative Diagnosis small cell lung cancer Procedure(s) Performed A-Port Insertion Internal Jugular Vein Surgeon Dr. 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
[2016-03-15] MEDS ORDERED: OXYC-57 PO (08:01)
--- NOTE | 2016-03-15 08:04 | Discharge Instructions ---
Discharge Instructions Admission Reason for Admission: Small Cell Lung Cancer Discharge Discharge Diagnosis / Problem: small cell lung CA Discharge Goals Goal(s): Therapeutic intervention Activity Recommendations Activity Limitations: per Instructions/Follow-up section Lifting Limitations: no more than 25 pounds (1 week), gradually increase as tolerated Exercise/Sports Limitations: gradually increase as tolerated May Resume Sexual Activity: when tolerated Shower/Bathe: tomorrow (afternoon) Driving or Machine Use: resume 1 day after discharge . Instructions / Follow-Up Instructions / Follow-Up Oncology per instructions Current Hospital Diet Patient's current hospital diet: Discharge Diet Recommended Diet: Regular Diet, Diabetes Type 2 Diet Procedures Procedures Performed: A-Port Insertion Internal Jugular Vein Pending Studies Studies pending at discharge: no Laboratory Results Hemoglobin A1c Test 02/22/16 07:20 Range/Units Estimated Average Glucose 134 mg/dl Hemoglobin A1c 6.3 H 4.5-5.6 % Work Instructions Return To Work: 1 week Medical Emergencies . Who to Call and When: Medical Emergencies: If at any time you feel your situation is an emergency, please call 911 immediately. . Non-Emergent Contact Non-Emergency issues call your: Primary Care Provider, Oncologist Call Non-Emergent contact if: temperature is above 101.5, your pain is worsening, your pain is concerning you, wound has increased pain, you have any medication questions . "Provider Documentation" section prepared by Gerber Vazquez. VTE Core Measure Inpt VTE Proph given/why not?: SCD's [place] Drug Monitoring Program Search Results: patient reviewed within database
[2016-03-15] MEDS ORDERED: EpHEDrine SULFATE INJ 50 MG/ML AMP IV PRN (08:15)
[2016-03-15] MEDS ORDERED: ATROPINE SULFATE 0.1 MG/ML 5ML SYR IV PRN (08:15)
--- NOTE | 2016-03-15 08:17 | Anesthesiology Progress Note ---
Anesthesia Post Op Note Date & Time Mar 15, 2016 at 08:17 Vital Signs Pain Intensity: 0 Vital Signs Past 12 Hours Date Time Temp Pulse Resp B/P Pulse Ox O2 Delivery O2 Flow Rate FiO2 03/15/16 08:10 86 19 154/60 95 Nasal Cannula 4 03/15/16 08:00 36.4 97 14 131/76 94 Nasal Cannula 4 03/15/16 05:44 37.3 92 20 165/80 92 Nasal Cannula 4 Notes Mental Status: alert / awake / arousable, participated in evaluation Pt Amnestic to Procedure: Yes Nausea / Vomiting: adequately controlled Pain: adequately controlled Airway Patency, RR, SpO2: stable & adequate BP & HR: stable & adequate Hydration State: stable & adequate Anesthetic Complications: no major complications apparent
--- NOTE | 2016-03-15 08:22 | DIAGNOSTIC IMAGING REPORT ---
SINGLE VIEW CHEST CLINICAL HISTORY: Infusion port placement. FINDINGS: An AP, portable, upright chest radiograph is compared to study dated 03/06/2016 and correlated with chest CT dated 02/27/2016. The examination is degraded by portable technique and patient rotation. A right internal jugular central venous infusion port has been placed. The tip of the catheter projects over the SVC. The heart is enlarged and there is atherosclerotic calcification of the thoracic aorta. The pulmonary vasculature is noncongested. Right hilar fullness is unchanged and consistent with lymphadenopathy when correlated with recent chest CT scans. Chronic interstitial thickening is unchanged. There is patchy airspace consolidation identified throughout the right lung. A round density projecting over the right midlung likely represents loculated pleural fluid within the major fissure. Pleural fluid is also seen at the right apex, as well as at both lung bases right greater than left. The left lung is otherwise grossly clear. There is no pneumothorax. The skeletal structures are osteopenic. Mild degenerative change is seen throughout the thoracic spine. IMPRESSION: 1. A right internal jugular central venous infusion port has been placed as above. No pneumothorax is seen post procedure. 2. Patchy consolidation throughout the right lung is identified and similar in appearance to previous. 3. Cardiomegaly without radiographic evidence of congestive failure. 4. There are bilateral pleural effusions, right larger than left. Loculated fluid is also seen at the right apex. A round density projecting over the right midlung likely represents loculated fluid within the major fissure. Electronically signed by: Dawson Lunsford M.D. 03/15/2016 8:21 AM Dictated Date/Time: 03/15/2016 8:17 AM
[2016-03-15 08:25] VITALS: BP 157/62; PULSE 88; TEMP 37; O2SAT 91
[2016-03-15 08:55] VITALS: BP 167/77; PULSE 91; TEMP 36.9; O2SAT 92
--- NOTE | 2016-03-15 09:18 | OPERATIVE REPORT ---
DATE OF OPERATION: 03/15/2016 PREOPERATIVE DIAGNOSIS: Small cell lung cancer. POSTOPERATIVE DIAGNOSIS: Same. PROCEDURE PERFORMED: 1. A-port insertion. 2. Intraoperative fluoroscopic guidance. 3. Venogram. SURGEON: Dr. Gerber Vazquez. MARINE PROPULSION TECHNICIAN: None. ANESTHESIA: Monitored anesthetic care with 1% Xylocaine with epinephrine local. ESTIMATED BLOOD LOSS: 15 mL DRAINS: None. COMPLICATIONS: None. 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 I placed some IV contrast and saw an opening laterally which helped me get the wire to the correct position. INDICATION FOR PROCEDURE: This is a 75-year-old female with small cell lung cancer, who underwent a biopsy last week, was discharged, and now will need a port for her care. She understands the risk of pneumothorax, arterial cardiac injury, inability to place the port, bleeding, and possible malfunction or infection of her port. DESCRIPTION OF PROCEDURE: The patient was placed in the supine position and placed Trendelenburg. Intraoperative ultrasound was used to identify her internal jugular vein. 1% Xylocaine was used to create a field block. Incision was made, and using ultrasound guidance, a seeker needle was inserted into her vein. There was good venous backflow bleeding. A wire was then advanced. There was inability to advance the wire. Fluoroscopy was then used to try and manipulate the wire into the superior vena cava. This was not successful initially. Some contrast was then placed, approximately 5 mL, and you could see an opening laterally in the vein. Once this was identified, the wire was directed toward the lateral part of the vein and the wire was able to be advanced into the superior vena cava and right atrial junction. The wire was then secured. Using 1% Xylocaine, a port site was created. A tunneler was then used to tunnel the catheter from the port site to the wire site. The catheter was then assembled to the port using the locking mechanism and then the catheter was then cut to size using fluoroscopic guidance. Once this was done, fluoroscopy was used to dilate her vein using the dilator and sheath. The dilator and wire were removed, leaving the sheath in place. The catheter was then inserted after it had been cut to size. This was then advanced to proper position and the sheath was removed. The catheter yash back blood and flushed easily. This was then secured with Prolene sutures. Deep tissues were closed with Vicryls and a running Vicryl was used to close the skin. Steri-Strips and benzoin were used to reinforce the incision. Sterile dressing was applied. The patient tolerated the procedure well without any complications, sent to postop recovery area for a period of observation. A chest x-ray will be ordered to check placement. I attest to the content of the Intraoperative Record and any orders documented therein. Any exceptio ns are noted below.
[2016-03-15 09:45] VITALS: BP 123/54; PULSE 91; TEMP 36.9; O2SAT 93
[2016-03-15 10:00] VITALS: BP 118/53; TEMP 36.9
[2016-04-28] MEDS ORDERED: PROC1TAB5 PO (09:42)
[2016-04-28] MEDS ORDERED: GUAI1TAB75 PO (09:42)
[2016-04-28] MEDS ORDERED: POTA20TA16 PO (09:42)
[2016-05-12] MEDS ORDERED: TMFUDL30 PO (15:17)
[2016-05-12] MEDS ORDERED: DXY100 PO (15:17)
[2016-05-12] MEDS ORDERED: CEFD300C2 PO (15:19)
[2016-08-10] MEDS ORDERED: CHOL1000 PO (09:36)
[2016-08-10] MEDS ORDERED: SPIR25TA PO (09:42)
[2016-08-10] MEDS ORDERED: FRS/40 PO ×2 (09:42→17:54)
[2016-08-10] MEDS ORDERED: ADVIN25/60 INH (09:46)
[2016-08-10] MEDS ORDERED: CYAN10005 PO (10:36)
[2016-08-10] MEDS ORDERED: ASPI81TA21 PO (17:15)
[2016-08-10] MEDS ORDERED: ROSU40TA PO (17:54)
[2016-08-10] MEDS ORDERED: OMEP40CA41 PO (17:57)
[2016-08-10] MEDS ORDERED: SILD1TAB39 PO (17:57)
[2016-08-10] MEDS ORDERED: GLIP10TA9 PO (17:57)
[2016-08-10] MEDS ORDERED: CARV25TA PO (17:57)
[2016-08-10] MEDS ORDERED: HYDR-4717 PO (17:57)
== END 2016-03-15 10:14 | disposition home or self-care (01) ==
LOC: C.ACU 04:47
PROVIDERS: ATTEND Surgery
DX: C34.90 Malignant neoplasm of unspecified part of unspecified bronchus or lung (principal); I87.1 Compression of vein; E03.9 Hypothyroidism, unspecified; E11.9 Type 2 diabetes mellitus without complications; E78.5 Hyperlipidemia, unspecified; J44.9 Chronic obstructive pulmonary disease, unspecified; Z90.710 Acquired absence of both cervix and uterus; Z98.890 Other specified postprocedural states

== ENCOUNTER → 2016-03-18 | Outpatient (CLI) | payer OTHER ==
[~2016-03-18] MED LIST changes: +ADVIN25/60 INH; +ASPI81TA21 PO; +CARV25TA PO; +CEFD300C2 PO; +CHOL1000 PO; +CLC100 PO; +CLR10 PO; +CYAN10005 PO; +DXY100 PO; +FLUT0.15 NAE; +FRS/40 PO; +GLIP10TA9 PO; +GUAI1TAB75 PO; +HYDR-4717 PO; +MAGNSUS73 PO; +MRLP17X PO; +OMEP40CA41 PO; +ONDA8TAB12 PO; +ONDA8TAB6 PO; +OXGN; +OXYC-57 PO; +POTA20TA16 PO; +POTA99TA PO; +PRED20TA PO; +PROC1TAB5 PO; +ROSU40TA PO; +SILD1TAB39 PO; +SPIR25TA PO; +TMFUDL30 PO; +humalog SQ
--- NOTE | 2016-03-18 11:19 | DIAGNOSTIC IMAGING REPORT ---
CHEST 2 VIEWS ROUTINE CLINICAL HISTORY: R91.8 Multiple pulmonary nodules COMPARISON STUDY: 03/15/2016 FINDINGS: Unchanging nodularity and infiltrative change right base. Left lung remains grossly clear. Heart shows moderate stable cardiomegaly. IMPRESSION: Stable evaluation compared to the prior study. No new or interval findings. Electronically signed by: Lenny Bowser M.D. 03/18/2016 11:18 AM Dictated Date/Time: 03/18/2016 11:15 AM
== END | disposition home or self-care (01) ==
LOC: C.RAD 10:48
PROVIDERS: ATTEND Surgery
DX: R91.8 Other nonspecific abnormal finding of lung field (principal)

== ENCOUNTER 2016-05-10 16:49 | Inpatient (IN) | payer OTHER ==
[~2016-05-10] VITALS: Ht 147.3 cm; Wt 78.8 kg
[~2016-05-10 16:49] MED LIST changes: -ADVIN25/60 INH; -ASPI81TA21 PO; -CARV25TA PO; -CEFD300C2 PO; -CHOL1000 PO; -CLC100 PO; -CLR10 PO; -CYAN10005 PO; -DXY100 PO; -FLUT0.15 NAE; -FRS/40 PO; -GLIP10TA9 PO; -HYDR-4717 PO; -MAGNSUS73 PO; -MRLP17X PO; -OMEP40CA41 PO; -ONDA8TAB12 PO; -ONDA8TAB6 PO; -OXYC-57 PO; -POTA99TA PO; -PRED20TA PO; -ROSU40TA PO; -SILD1TAB39 PO; -SPIR25TA PO; -TMFUDL30 PO; -humalog SQ
[2016-05-10] MEDS ORDERED: SODIUM CHLORIDE 0.9% 1000ML 1,000 ML IV STA ×2 (17:44→18:53)
[2016-05-10] MEDS ORDERED: POTA99TA PO (17:54)
--- NOTE | 2016-05-10 18:11 | DIAGNOSTIC IMAGING REPORT ---
CHEST ONE VIEW PORTABLE CLINICAL HISTORY: Sepsis. COMPARISON STUDY: Chest radiograph April 29, 2016. FINDINGS: A right internal jugular [id number] is in place. Cardiomegaly is unchanged. There is a small right pleural effusion. Right hilar fullness is again noted. There is pulmonary vascular congestion. Hazy right lung airspace opacities are present. IMPRESSION: 1. Small right pleural effusion. 2. Hazy nonspecific right lung airspace opacities. 3. Redemonstration of right hilar fullness which may be due to lymphadenopathy. Electronically signed by: Joon Koehler M.D. 05/10/2016 6:10 PM Dictated Date/Time: 05/10/2016 6:08 PM
[2016-05-10 18:12] LABS: PARTIAL THROMBOPLASTIN RATIO 1.2; PROTHROMBIN TIME (PATIENT) 10.8 SECONDS (9.0-12.0)
[2016-05-10] MEDS ORDERED: PIPERACILLIN/TAZOBACTAM 4.5 GM/100ML D5W IV STA (18:14)
[2016-05-10 18:19] LABS: BUN/CREATININE RATIO 21.8 (10-20); CALCIUM 8.9 mg/dl (8.5-10.1); CREATININE 1.5 mg/dl (0.60-1.20); POTASSIUM 4.6 mmol/L (3.5-5.1)
[2016-05-10 18:21] LABS: ALB/GLOB RATIO 0.7 (0.9-2)
[2016-05-10 18:22] LABS: HEMATOCRIT 25.8 % (37-47); MEAN CELL VOLUME 98.9 fL (80-100); MEAN CORPUSCULAR HEMOGLOBIN 31.4 pg (25-34); MEAN CORPUSCULAR HGB CONC 31.8 g/dl (32-36); MEAN PLATELET VOLUME 10.2 fL (7.4-10.4); PLATELET COUNT 22 K/uL (130-400); RED BLOOD COUNT 2.61 M/uL (4.2-5.4); WHITE BLOOD COUNT 1.89 K/uL (4.8-10.8)
[2016-05-10 18:44] LABS: ANISOCYTOSIS PRESENT; BASO % 0.5 %; BASO ABS # 0.01 K/uL (0-0.2); COMPLETE YES; DOHLE BODIES 1+; EOS % 0.5 %; IG% 0.5 %; LYMPH % 23.8 %; LYMPH ABS # 0.45 K/uL (1.2-3.4); NEUT % 55.7 %; PLT ESTIMATE SIGNIFIC DECREASED; POIKILOCYTOSIS PRESENT; TOXIC GRANULATION 2+; VACUOLIZATION 1+
[2016-05-10] MEDS ORDERED: ONDANSETRON INJ 2 MG/ML 2 ML VIAL IV PRN (19:45)
[2016-05-10] MEDS ORDERED: ACETAMINOPHEN 325 MG TAB PO PRN (19:45)
[2016-05-10] MEDS ORDERED: VANCOMYCIN CONSULT ACTIVE PRN (20:04)
[2016-05-10] MEDS ORDERED: PIPERACILL/TAZOBAC CONSULT ACTIVE PRN (20:05)
[2016-05-10] MEDS ORDERED: [UNRECOGNIZED DRUG - OTHER] PRN (20:06)
[2016-05-10] MEDS ORDERED: ONDA8TAB12 PO (20:20)
[2016-05-10] MEDS ORDERED: CLC100 PO (20:20)
[2016-05-10] MEDS ORDERED: MAGNSUS73 PO (20:20)
[2016-05-10] MEDS ORDERED: LORA-741 PO (20:20)
[2016-05-10] MEDS ORDERED: PROC1TAB5 PO (20:20)
--- NOTE | 2016-05-10 20:26 | EMERGENCY ROOM VISIT NOTE ---
History Report prepared by Lazaro: Arcelia Hoover Under the Supervision of: Dr. Seth Gibson M.D. First contact with patient: 17:38 Chief Complaint: FLU LIKE SX Stated Complaint: FLU-LIKE SYMPTOMS History of Present Illness The patient is a 75 year old female who presents to the Emergency Room with complaints of constant flu like symptoms beginning 3 days prior to arrival. The patient states that she has been experiencing a mild nonproductive cough along with chills, fatigue and weakness. She also notes that she notices blood whenever she blows her nose. The patient is on oxygen at home. Patient is unsure if she has a fever. She denies vomiting, diarrhea, melena, headaches, abdominal pain, chest pain or a sore throat. She also denies a history of heart failure. The patient is currently being treated for right sided lung cancer. She states that it has not spread. Her last chemotherapy treatment was about 2 weeks ago. 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 Review of Systems See HPI for pertinent positives & negatives. A total of 10 systems reviewed and were otherwise negative. Past Medical & Surgical Medical Problems: (1) Carotid stenosis (2) COPD (chronic obstructive pulmonary disease) (3) COPD exacerbation (4) DM2 (diabetes mellitus, type 2) (5) Hypertension (6) Hypertensive heart disease (7) Hypotension (8) Hypothyroid (9) Kidney disease (10) Lung cancer (11) Nocturnal hypoxemia (12) Pancytopenia (13) Pulmonary hypertension (14) Respiratory failure, acute (15) Small cell carcinoma of right lung Surgical Problems: (1) H/O endarterectomy (2) History of total abdominal hysterectomy (3) S/P thoracentesis Family History Diabetes mellitus Heart disease Hypertension Social History Smoking Status: Former Smoker Alcohol Use: none Drug Use: none Marital Status: Housing Status: lives alone Occupation Status: unemployed Current/Historical Medications Scheduled Aspirin Enteric Coated (Ecotrin Or Generic), 81 MG PO QAM Carvedilol (Coreg), 50 MG PO BID Cholecalciferol (Vitamin D3), 1 TAB PO QAM Cyanocobalamin (Vitamin B-12), 1,000 MCG PO QAM Docusate Sodium (Docusate Sodium), 100 MG PO BID Fluticasone Prop/Salmeterol (Advair Diskus 250/50 60 Dose), 1 PUFF INH BID Fluticasone Propionate (Nasal) (Flonase Allergy Relief), 2 SPRAY LATRICE DAILY Furosemide (Lasix), 40 MG PO QAM Furosemide (Lasix), 20 MG PO QPM Glipizide (Glucotrol), 10 MG PO QAM Hydralazine Hcl (Apresoline), 75 MG PO TID Iron-Vitamin C (Vitron-C), 65-125 MG PO QAM Levothyroxine Sodium (Levothyroxine Sodium), 137 MCG PO QAM Omeprazole (Prilosec), 40 MG PO QAM Oxygen (Oxygen), 2-3 LITERS NA CONTINOUS Potassium (Potassium), 99 MG PO BID @ NOON AND QPM Rosuvastatin Calcium (Crestor), 40 MG PO QAM Sildenafil Citrate (Pulmonary (Sildenafil), 20 MG PO TID Spironolactone (Aldactone), 25 MG PO QAM Scheduled PRN Albuterol Hfa (Ventolin Hfa), 1 PUFFS INH Q4 PRN for Shortness of Breath Lorazepam (Ativan), 0.5 MG PO Q6H PRN for Anxiety Magnesium Hydroxide (Milk of Magnesia 400 mg/5Ml), 5 ML PO DAILY PRN for Constipation Ondansetron Hcl (Zofran), 8 MG PO TID PRN for Nausea Polyethylene (Miralax), 17 GM PO DAILY PRN for Constipation Prochlorperazine Maleate (Compazine), 10 MG PO Q6H PRN for Nausea Allergies Coded Allergies: No Known Allergies (Verified , 05/10/16) Physical Exam Vital Signs Date Time Temp Pulse Resp B/P Pulse Ox O2 Delivery O2 Flow Rate FiO2 05/10/16 20:14 78 16 81/48 97 05/10/16 18:37 37.4 78 18 89/49 96 3.0 05/10/16 17:50 76 05/10/16 17:30 77 99/55 05/10/16 17:26 95 Nasal Cannula 2.0 05/10/16 17:26 78 22 84/47 93 Nasal Cannula 2.0 05/10/16 17:25 93 Nasal Cannula 2.0 05/10/16 17:11 37.9 80 20 80/40 92 Nasal Cannula 2.0 74/35 Physical Exam Constitutional: Vital signs reviewed. Hypotensive. Eyes: Pupils are equal round reactive to light. Conjunctiva are noninjected. ENT: Pharynx is clear without erythema or exudate. Mucous membranes are moist. Neck supple without meningeal signs. Respiratory: Clear to auscultation bilaterally. Breath sounds are equal bilaterally. Cardiovascular: Regular rate and rhythm. No rubs or gallops. GI: Soft, nondistended and nontender. Bowel sounds are present. Musculoskeletal: Right port accessed, no signs of infection. No peripheral edema. No lower extremity tenderness. Integumentary: No cyanosis. Neurological: The patient is awake and alert. No focal deficits. Psychiatric: Normal affect. Medical Decision & Procedures ER Provider Diagnostic Interpretation: X-ray results as stated below per interpretation by me and the radiologist: CHEST ONE VIEW PORTABLE CLINICAL HISTORY: Sepsis. COMPARISON STUDY: Chest radiograph April 29, 2016. FINDINGS: A right internal jugular [id number]-Agkj is in place. Cardiomegaly is unchanged. There is a small right pleural effusion. Right hilar fullness is again noted. There is pulmonary vascular congestion. Hazy right lung airspace opacities are present. IMPRESSION: 1. Small right pleural effusion. 2. Hazy nonspecific right lung airspace opacities. 3. Redemonstration of right hilar fullness which may be due to lymphadenopathy. Electronically signed by: Joon Koehler M.D. 05/10/2016 6:10 PM Dictated Date/Time: 05/10/2016 6:08 PM Laboratory Results 05/10/16 17:32 Red Blood Count 2.61, Mean Corpuscular Volume 98.9, Mean Corpuscular Hemoglobin 31.4, Mean Corpuscular Hemoglobin Concent 31.8, Mean Platelet Volume 10.2, Neutrophils (%) (Auto) 55.7, Lymphocytes (%) (Auto) 23.8, Monocytes (%) (Auto) 19.0, Eosinophils (%) (Auto) 0.5, Basophils (%) (Auto) 0.5, Neutrophils # (Auto ) 1.05, Lymphocytes # (Auto) 0.45, Monocytes # (Auto) 0.36, Eosinophils # (Auto ) 0.01, Basophils # (Auto) 0.01 05/10/16 17:32 Test 05/10/16 17:32 05/10/16 18:00 05/10/16 18:06 White Blood Count 1.89 K/uL (4.8-10.8) Red Blood Count 2.61 M/uL (4.2-5.4) Hemoglobin 8.2 g/dL (12.0-16.0) Hematocrit 25.8 % (37-47) Mean Corpuscular Volume 98.9 fL (80-100) Mean Corpuscular Hemoglobin 31.4 pg (25-34) Mean Corpuscular Hemoglobin Concent 31.8 g/dl (32-36) Platelet Count 22 K/uL (130-400) Mean Platelet Volume 10.2 fL (7.4-10.4) Neutrophils (%) (Auto) 55.7 % Lymphocytes (%) (Auto) 23.8 % Monocytes (%) (Auto) 19.0 % Eosinophils (%) (Auto) 0.5 % Basophils (%) (Auto) 0.5 % Neutrophils # (Auto) 1.05 K/uL (1.4-6.5) Lymphocytes # (Auto) 0.45 K/uL (1.2-3.4) Monocytes # (Auto) 0.36 K/uL (0.11-0.59) Eosinophils # (Auto) 0.01 K/uL (0-0.5) Basophils # (Auto) 0.01 K/uL (0-0.2) RDW Standard Deviation 64.3 fL (36.4-46.3) RDW Coefficient of Variation 18.1 % (11.5-14.5) Immature Granulocyte % (Auto) 0.5 % Immature Granulocyte # (Auto) 0.01 K/uL (0.00-0.02) Toxic Granulation 2+ Toxic Vacuolation 1+ Dohle Bodies 1+ Platelet Estimate SIGNIFIC DECREASED Poikilocytosis PRESENT Anisocytosis PRESENT Prothrombin Time 10.8 SECONDS (9.0-12.0) Prothromb Time International Ratio 1.0 (0.9-1.1) Activated Partial Thromboplast Time 31.9 SECONDS (21.0-31.0) Partial Thromboplastin Ratio 1.2 Anion Gap 8.0 mmol/L (3-11) Est Creatinine Clear Calc Drug Dose 26.8 ml/min Estimated GFR () 38.8 Estimated GFR (Non- 33.5 BUN/Creatinine Ratio 21.8 (10-20) Calcium Level 8.9 mg/dl (8.5-10.1) Total Bilirubin 0.3 mg/dl (0.2-1) Aspartate Amino Transf (AST/SGOT) 16 U/L (15-37) Alanine Aminotransferase (ALT/SGPT) 19 U/L (12-78) Alkaline Phosphatase 59 U/L (45-117) Total Protein 6.7 gm/dl (6.4-8.2) Albumin 2.8 gm/dl (3.4-5.0) Globulin 3.9 gm/dl (2.5-4.0) Albumin/Globulin Ratio 0.7 (0.9-2) Influenza Type A Antigen Neg for Influ A (NEG) Influenza Type B Antigen POS for Influ B (NEG) Bedside Lactic Acid Venous 0.99 mmol/L (0.90-1.70) Laboratory results as reviewed by me. Medications Administered Medications (Trade) Dose Ordered Sig/Gilbert Route Start Time Stop Time Status Last Admin Dose Admin Sodium Chloride (Nss 1000ml) 1,000 ml @ 999 mls/hr Q1H1M STAT IV 05/10/16 17:44 05/10/16 18:44 DC 05/10/16 17:40 999 MLS/HR Piperacillin Sod/ Tazobactam Sod 4.5 gm 4.5 gm NOW STAT IV 05/10/16 18:14 05/10/16 18:15 DC 05/10/16 18:43 4.5 GM Sodium Chloride (Nss 1000ml) 1,000 ml @ 999 mls/hr Q1H1M STAT IV 05/10/16 18:53 05/10/16 19:53 DC 05/10/16 19:03 999 MLS/HR ECG Indication: other (hypotensive) Rate (beats per minute): 80 Rhythm: normal sinus Findings: RBBB, no ectopy, other (baseline artifact limiting interpretation) Change: no significant change (from 2016. RBBB was still present) ED Course 1740: The patient was evaluated in room C12. A complete history and physical exam was performed. 1743: Sodium Chloride 1,000 ml @ 999 mls/hr IV. 1813: Zosyn IV 4.5 gm IV. 1853: I spoke with ELIJAH Hernandez of [facility]. We discussed the patient and her results. The patient will be further evaluated by Jillian Hernandez. 1852: Sodium Chloride 1,000 ml @ 999 mls/hr IV. 1854: The patient is still hypotensive. She will get more fluids. I spoke with the patient about her test results. Medical Decision This is a 75-year-old female who presents with flulike symptoms. Differential diagnosis includes sepsis, pneumonia, UTI, neutropenia, influenza. I did perform a limited focused review of portions of the patient's old chart on the electronic medical record. The patient was hospitalized in February for metastatic lung cancer. Her hemoglobin March 15 was 8.6. I did evaluate the patient as noted above. She is presenting with flulike symptoms for the past 3 days. She is well appearing on examination although she is hypotensive. She denies feeling lightheaded or near syncopal. IV access was established. The patient was placed on a continuous ceramic sprayer. I did treat her with normal saline 1 L bolus IV. I did order and personally review the patient's 12-lead EKG and chest x-ray as described above. She does appear to have scattered infiltrates on the right side. Blood cultures were ordered. I did treat her with Zosyn IV. I did order and review the patient's blood work as noted in the electronic medical record. She is pancytopenic although not neutropenic. Her platelet count is low as well. I did order a rapid flu test which was positive. I did reassess the patient. She was informed of her test results. She also has continued hypotension so I did treat her with another liter bolus of normal saline. I did discuss the case with the continuous pillowcase cutter and hospitalist. Consults Time Called: 1851 Consulting Physician: Emmy NAVA Returned Call: 1853 I spoke with ELIJAH Hernandez of [facility]. We discussed the patient and her results. The patient will be further evaluated by Jillian Hernandez. Impression Primary Impression: Influenza B Additional Impressions: Pneumonia Hypotension Pancytopenia Scribe Attestation The scribe's documentation has been prepared under my direct and personally reviewed by me in its entirety. I confirm that the note above accurately reflects all work, treatment, procedures, and medical decision making performed by me. Departure Information Dispostion Being Evaluated By Hospitalist Callie Esparza M.D. (PCP) Problem Qualifiers Additional Impressions: Pneumonia Pneumonia type: due to unspecified organism Laterality: right Lung location : unspecified part of lung Qualified Codes: J18.9 - Pneumonia, unspecified organism Hypotension Hypotension type: unspecified hypotension type Qualified Codes: I95.9 - Hypotension, unspecified
[2016-05-10] MEDS ORDERED: GLUCOSE 40% GEL 15 GM TUBE PO PRN (20:30)
[2016-05-10] MEDS ORDERED: GLUCOSE 10 TABS/TUBE PO PRN (20:30)
[2016-05-10] MEDS ORDERED: DEXTROSE 50% 50 ML SYR IV PRN (20:30)
[2016-05-10] MEDS ORDERED: ALBUTEROL HFA 8 GM INHALER INH PRN (20:30)
[2016-05-10] MEDS ORDERED: GLUCAGON FOR INJ 1 MG VIAL SQ PRN (20:30)
--- NOTE | 2016-05-10 20:39 | Pharmacy Progress Note ---
Pharmacy Antibiotic Consult Date of Service: May 10, 2016. Pharmacy Dosing Scope Pharmacy is consulted to initiate vanc/zosyn/tamiflu IV dosing therapy, order appropriate labs and adjust drug dose/frequency. Subjective The patient is a 75 year old female to be admitted on broad sprectrum antibiotic /antiviral coverage for: * PNX * febrile neutropenia * Influenza-B Pertinent PMH: DM2, COPD, lung CA-chemo ~2 weeks ago, renal impairment Objective Height (Feet): 4 Height (Inches): 10.00 Weight (Kilograms): 71.600 Lab Results (24hrs): Laboratory Tests Test 05/10/16 17:32 BUN/Creatinine Ratio 21.8 Blood Urea Nitrogen 33 mg/dl Creatinine 1.50 mg/dl White Blood Count 1.89 K/uL Red Blood Count 2.61 M/uL Hemoglobin 8.2 g/dL Hematocrit 25.8 % Mean Corpuscular Volume 98.9 fL Mean Corpuscular Hemoglobin 31.4 pg Mean Corpuscular Hemoglobin Concent 31.8 g/dl Platelet Count 22 K/uL Mean Platelet Volume 10.2 fL Neutrophils (%) (Auto) 55.7 % Lymphocytes (%) (Auto) 23.8 % Monocytes (%) (Auto) 19.0 % Eosinophils (%) (Auto) 0.5 % Basophils (%) (Auto) 0.5 % Neutrophils # (Auto) 1.05 K/uL Lymphocytes # (Auto) 0.45 K/uL Monocytes # (Auto) 0.36 K/uL Eosinophils # (Auto) 0.01 K/uL Basophils # (Auto) 0.01 K/uL Micro Results: Item Value Date Time Blood Culture Frederick Batch 05/10/16 1744 Blood Pending Blood Culture Received 05/10/16 1732 Blood Pending Recent Pertinent Medications * Zosyn 4.5 grams IV x 1 in ED * On admission, ordered Doxy 100mg po BID Assessment & Plan 1. VANC-IV: * Estimated p'kinetics: Vd~0.7L/kg, Ke~0.64222tt-0, T1/2~26 hours * Loading dose: VANC 1800 mg (~25mg/kg) IV X 1 dose then: * Reassess renal function 05/11 in am to see if improved after IV hydration to guide subsequent dosing. 2. ZOSYN-IV: 4.5 grams IV x 1 then CI every 8 hours for est CrCL > 20mL/min. 3. TAMIFLU: 30mg po daily x 5 daily for influenza-B treatment. Pharmacy will continue to follow and will adjust dose/frequency as necessary. Thank you
--- NOTE | 2016-05-10 20:44 | Progress Note ---
Progress Note Date of Service May 10, 2016. Progress Note ATTENDING ADDENDUM care coordinated with ELIJAH Burroughs please refer to her notes for full details, I agree with her notes patient seen and examined, records reviewed by myself as well on exam, patient seen sitting up in bed, alert, pleasant states she feels somewhat weak but otherwise fine overall denies dyspnea, has occasional cough no chest pain, abdominal pain,nausea, changes with urination or bowel movement no other symptoms VS noted and reviewed oriented x 3 , not in distress, speaks in sentences with no effort nor accessory muscle use normal rate, regular rhythm, no murmurs clear breath sounds bilaterally non distended, soft, nontender no bipedal edema, erythema, warmth no neuro deficits WBC 1.8 Plt 22 Crea 1.5 CXR: 1. Small right pleural effusion. 2. Hazy nonspecific right lung airspace opacities. 3. Re-demonstration of right hilar fullness which may be due to lymphadenopathy. ASSESSMENT/PLAN> 75 year old female with Small Cell Lung Ca, currently on Chemo, DM, Hypertension , presenting with flu like symptoms x 2-3 days. INFLUENZA B INFECTION, POSSIBLE RIGHT SIDED PNEUMONIA FEBRILE NEUTROPENIA SMALL CELL LUNG CA ON CHEMO - BP on the low side received 2 liters at the ER continue IVFs - lactic acid normal - ff up cultures - empiric Vanco, Zosyn, Doxy ID and Hem Onc consulted HYPERTENSION hold BP meds except Carvedilol (decrease dose for now) other diagnoses and plan of care as per ELIJAH Burroughs's notes Juanito Kinney MD
[2016-05-10 21:00] VITALS: BP 94/55; PULSE 87; TEMP 37.9; O2SAT 95; Ht 147.3 cm; Wt 78.8 kg
[2016-05-10] MEDS: INSULIN ASPART 100 UNITS/ML 3 ML PEN SC SCH (21:00)
[2016-05-10] MEDS ORDERED: ALBUT/IPRATROP 3MG/0.5MG NEB 3 ML VIAL INH PRN (21:00)
[2016-05-10] MEDS ORDERED: VANCOMYCIN INJ 1,800 MG in SODIUM CHLORIDE 0.9% 500ML 500 ML IV ONE (21:00)
[2016-05-10] MEDS ORDERED: CARVEDILOL 25 MG TAB PO SCH (21:00)
--- NOTE | 2016-05-10 21:04 | History and Physical ---
History & Physical Date & Time of Service: May 10, 2016 at 19:55 Chief Complaint: Flu-Like Symptoms Primary Care Physician: Callie Verdugo M.D. 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 Patient was recently hospitalized at [facility] from Feb 26-Mar 09 for malignant right pleural effusion and underwent pleurectomy and pleurodesis by Dr. Butts. She is followed by Dr. Veto Ortega for oncology. Last chemo treatment 04/30/16. CBC was unremarkable except for anemia (Hg 7.1) on 04/27/16 and was transfused 2 units as outpatient. Patient states yesterday she developed "a severe cold" with rhinorrhea, sore throat, cough productive of clear sputum, chills. Did not notice fever at home. Has poor PO intake for past 3 days. Patient reports a small amount of blood on tissue when she blows her nose but no continued bleeding. Has chronic pain in back and neck. She denies dizziness, REYNAGA, ear ache, aspiration, SOB, chest pain, abdominal pain, N/V/D, dysuria, frequency. Was in [facility] after recent admission but now living at home alone. In the ER patient is hypotensive which is improving with IVF's, febrile to 37.9, pancytopenic, lactate WNL, with possible pneumonia on CXR. Past Medical/Surgical History Medical Problems: (1) Carotid stenosis Status: Chronic (2) COPD (chronic obstructive pulmonary disease) Status: Chronic (3) DM2 (diabetes mellitus, type 2) Status: Chronic (4) Hypertension Status: Chronic (5) Hypertensive heart disease Status: Chronic (6) Hypothyroid Status: Chronic (7) Kidney disease Status: Chronic (8) Lung cancer Status: Chronic (9) Nocturnal hypoxemia Status: Chronic (10) Pulmonary hypertension Status: Chronic Surgical Problems: (1) H/O endarterectomy Permanent Comment: 05/09/02 right carotid endarterectomy with Bovine patch angioplasty () 12/05/07 Left carotid endarterectomy with bovine patch angioplasty 12/05/[address] Burnette at [facility] Status: Chronic (2) History of total abdominal hysterectomy Status: Chronic (3) S/p pleurectomy and pleurodesis Status: Chronic (4) S/P thoracentesis Status: Chronic Family History Diabetes mellitus Heart disease Hypertension Social History Smoking Status: Former Smoker Alcohol Use: none Drug Use: none Marital Status: Housing status: lives alone Occupational Status: unemployed Immunizations History of Influenza Vaccine: Yes Influenza Vaccine Date: Oct 01, 2011 History of Tetanus Vaccine?: Yes Tetanus Immunization Date: Sep 27, 2008 History of Pneumococcal: Yes Pneumococcal Date: Sep 30, 2011 History of Hepatitis B Vaccine: No Multi-Drug Resistant Organisms History of MDRO: No Allergies Coded Allergies: No Known Allergies (Verified , 05/10/16) Home Medications Scheduled Aspirin Enteric Coated (Ecotrin Or Generic), 81 MG PO QAM Carvedilol (Coreg), 50 MG PO BID Cholecalciferol (Vitamin D3), 1 TAB PO QAM Cyanocobalamin (Vitamin B-12), 1,000 MCG PO QAM Docusate Sodium (Docusate Sodium), 100 MG PO BID Fluticasone Prop/Salmeterol (Advair Diskus 250/50 60 Dose), 1 PUFF INH BID Fluticasone Propionate (Nasal) (Flonase Allergy Relief), 2 SPRAY LATRICE DAILY Furosemide (Lasix), 40 MG PO QAM Furosemide (Lasix), 20 MG PO QPM Glipizide (Glucotrol), 10 MG PO QAM Hydralazine Hcl (Apresoline), 75 MG PO TID Iron-Vitamin C (Vitron-C), 65-125 MG PO QAM Levothyroxine Sodium (Levothyroxine Sodium), 137 MCG PO QAM Omeprazole (Prilosec), 40 MG PO QAM Oxygen (Oxygen), 2-3 LITERS NA CONTINOUS Potassium (Potassium), 99 MG PO BID @ NOON AND QPM Rosuvastatin Calcium (Crestor), 40 MG PO QAM Sildenafil Citrate (Pulmonary (Sildenafil), 20 MG PO TID Spironolactone (Aldactone), 25 MG PO QAM Scheduled PRN Albuterol Hfa (Ventolin Hfa), 1 PUFFS INH Q4 PRN for Shortness of Breath Lorazepam (Ativan), 0.5 MG PO Q6H PRN for Anxiety Magnesium Hydroxide (Milk of Magnesia 400 mg/5Ml), 5 ML PO DAILY PRN for Constipation Ondansetron Hcl (Zofran), 8 MG PO TID PRN for Nausea Polyethylene (Miralax), 17 GM PO DAILY PRN for Constipation Prochlorperazine Maleate (Compazine), 10 MG PO Q6H PRN for Nausea Review of Systems Ten point ROS performed with pertinent positives and negatives noted in HPI. Physical Exam Vital Signs Date Time Temp Pulse Resp B/P Pulse Ox O2 Delivery O2 Flow Rate FiO2 05/10/16 18:37 37.4 78 18 89/49 96 3.0 05/10/16 17:50 76 05/10/16 17:30 77 99/55 05/10/16 17:26 95 Nasal Cannula 2.0 05/10/16 17:26 78 22 84/47 93 Nasal Cannula 2.0 05/10/16 17:25 93 Nasal Cannula 2.0 05/10/16 17:11 37.9 80 20 80/40 92 Nasal Cannula 2.0 74/35 General Appearance: WD/WN, + pertinent finding (acutely ill appearing 75 year old female) Head: normocephalic, atraumatic Eyes: normal inspection, PERRL, EOMI ENT: hearing grossly normal, pharynx normal, + pertinent finding (dry oral mucosa) Neck: supple Respiratory/Chest: lungs clear, normal breath sounds, no respiratory distress Cardiovascular: regular rate, rhythm, normal peripheral pulses Abdomen/GI: normal bowel sounds, non tender, soft Extremities/Musculoskelatal: no calf tenderness, normal capillary refill, no pedal edema Neurologic/Psych: alert, normal mood/affect, oriented x 3, + pertinent finding (grossly nonfocal ) Skin: normal color, warm/dry Diagnostics Laboratory Results Results Past 24 Hours Test 05/10/16 17:32 05/10/16 18:00 05/10/16 18:01 05/10/16 18:06 Range/Units White Blood Count 1.89 4.8-10.8 K/uL Red Blood Count 2.61 4.2-5.4 M/uL Hemoglobin 8.2 12.0-16.0 g/dL Hematocrit 25.8 37-47 % Mean Corpuscular Volume 98.9 80-100 fL Mean Corpuscular Hemoglobin 31.4 25-34 pg Mean Corpuscular Hemoglobin Concent 31.8 32-36 g/dl Platelet Count 22 130-400 K/uL Mean Platelet Volume 10.2 7.4-10.4 fL Neutrophils (%) (Auto) 55.7 % Lymphocytes (%) (Auto) 23.8 % Monocytes (%) (Auto) 19.0 % Eosinophils (%) (Auto) 0.5 % Basophils (%) (Auto) 0.5 % Neutrophils # (Auto) 1.05 1.4-6.5 K/uL Lymphocytes # (Auto) 0.45 1.2-3.4 K/uL Monocytes # (Auto) 0.36 0.11-0.59 K/uL Eosinophils # (Auto) 0.01 0-0.5 K/uL Basophils # (Auto) 0.01 0-0.2 K/uL RDW Standard Deviation 64.3 36.4-46.3 fL RDW Coefficient of Variation 18.1 11.5-14.5 % Immature Granulocyte % (Auto) 0.5 % Immature Granulocyte # (Auto) 0.01 0.00-0.02 K/uL Toxic Granulation 2+ Toxic Vacuolation 1+ Dohle Bodies 1+ Platelet Estimate SIGNIFIC DECREASED Poikilocytosis PRESENT Anisocytosis PRESENT Prothrombin Time 10.8 9.0-12.0 SECONDS Prothromb Time International Ratio 1.0 0.9-1.1 Activated Partial Thromboplast Time 31.9 21.0-31.0 SECONDS Partial Thromboplastin Ratio 1.2 Sodium Level 140 136-145 mmol/L Potassium Level 4.6 3.5-5.1 mmol/L Chloride Level 106 98-107 mmol/L Carbon Dioxide Level 26 21-32 mmol/L Anion Gap 8.0 3-11 mmol/L Blood Urea Nitrogen 33 7-18 mg/dl Creatinine 1.50 0.60-1.20 mg/dl Est Creatinine Clear Calc Drug Dose 26.8 ml/min Estimated GFR () 38.8 Estimated GFR (Non- 33.5 BUN/Creatinine Ratio 21.8 10-20 Random Glucose 101 70-99 mg/dl Calcium Level 8.9 8.5-10.1 mg/dl Total Bilirubin 0.3 0.2-1 mg/dl Aspartate Amino Transf (AST/SGOT) 16 15-37 U/L Alanine Aminotransferase (ALT/SGPT) 19 12-78 U/L Alkaline Phosphatase 59 45-117 U/L Total Protein 6.7 6.4-8.2 gm/dl Albumin 2.8 3.4-5.0 gm/dl Globulin 3.9 2.5-4.0 gm/dl Albumin/Globulin Ratio 0.7 0.9-2 Influenza Type A Antigen Neg for Influ A NEG Influenza Type B Antigen POS for Influ B NEG Bedside Lactic Acid Venous 0.95 0.99 0.90-1.70 mmol/L Microbiology Results 05/10/16 Blood Culture, Frederick Batch Pending 05/10/16 Blood Culture, Received Pending Diagnostic Radiology CHEST ONE VIEW PORTABLE CLINICAL HISTORY: Sepsis. COMPARISON STUDY: Chest radiograph April 29, 2016. FINDINGS: A right internal jugular [id number] is in place. Cardiomegaly is unchanged. There is a small right pleural effusion. Right hilar fullness is again noted. There is pulmonary vascular congestion. Hazy right lung airspace opacities are present. IMPRESSION: 1. Small right pleural effusion. 2. Hazy nonspecific right lung airspace opacities. 3. Redemonstration of right hilar fullness which may be due to lymphadenopathy. EKG NSR with sinus arrhythmia, RBBB- also present on prior EKG Impression Assessment and Plan FEBRILE NEUTROPENIA POSSIBLE PNEUMONIA Fever 37.9; WBC 1.89, Neutrophils 1.05, Hypotension- improving with IVF's; No tachycardia, Lactate WNL CXR- right side opacity, small right pleural effusion Check blood cultures, sputum culture, UA and urine culture Zosyn and IVF's given in ER Continue Zosyn, add Vancomycin and Doxycycline Continue IVF's at 125 mL/hour Speech therapy eval to r/o aspiration Consult ID Neutropenic precautions INFLUENZA B Start Tamiflu- pharmacy consulted for renal dosing Contact precautions HYPOTENSION Improving with IVF's Reduce carvedilol to 12.5 mg BID Hold other anti-hypertensives Continue IVF's at 125 mL/hour THROMBOCYTOPENIA Platelets normal on 04/27/16; plt count now 22 No active bleeding Consult hem/onc; discussed case with Dr. Sandoval, appreciate input No need for platelet transfusion at this time Patient will be seen by Dr. Ortega tomorrow am ANEMIA Hg 7.1 on 04/27/16 -> received 2 units as outpatient -> now 8.2 Monitor CBC SMALL CELL LUNG CANCER With malignant right pleural effusion s/p pleurectomy and pleurodesis No evidence of distant metastasis- recent bone scan and MRI brain negative On etoposide/ carboplatin chemo- last tx 04/30/[address] Ortega Hem/onc consulted WORSENING RENAL FUNCTION Creat was 0.9 in early Mar 2016 -> running 1.4-1.5 after that Diuretics on hold Monitor renal function CHRONIC RESPIRATORY FAILURE/ COPD Not in exacerbation Continue home inhalers PRN nebs Continue home supplemental O2 PULMONARY HYPERTENSION Hold sildenafil due to hypotension HYPOTHYROIDISM Continue levothyroxine Check TSH with am lab DM TYPE 2 Hold glipizide Insulin sliding scale coverage A1c was 6.3 on 02/22/16 DVT PROPHYLAXIS SCD's due to thrombocytopenia CODE STATUS FULL CODE per my discussion with the patient. Patient seen in collaboration with Dr. Kinney. Please see his addendum. VTE Prophylaxis VTE Risk Assessment Done? Y/N: Yes Risk Level: Moderate
[2016-05-10] MEDS: FLUTICASONE/SALMETEROL 250/50 (ADVAIR) 14 PUFF/1 INHALER INH SCH (21:45)
[2016-05-10] MEDS: DOXYCYCLINE HYCLATE 100 MG CAP PO SCH (21:48)
[2016-05-10] MEDS: OSELTAMIVIR PHOSPHATE SUSP 30 MG/5 ML UDP PO SCH (21:48)
[2016-05-10] MEDS: SODIUM CHLORIDE 0.9% 1000ML 1,000 ML IV SCH (21:55)
[2016-05-10 22:10] LABS: URINE APPEARANCE CLEAR (CLEAR); URINE BILIRUBIN NEG (NEG); URINE COLOR YELLOW; URINE EPITHELIAL CELL AUTO >30 /lpf (0-5); URINE NITRITE NEG (NEG); URINE SPECIFIC GRAVITY 1.019 (1.000-1.030); UROBILINOGEN NEG (NEG); ZZUR CULT IF INDIC CLEAN CATCH NO
[2016-05-10 22:11] LABS: MANUAL MICROSCOPIC REQUIRED? NO; REVIEW REQ? YES
[2016-05-10 23:35] VITALS: BP_SYST 106; BP_SYST 70; BP_DIAS 35; BP_DIAS 38; PULSE 72; TEMP 38.6; O2SAT 97
[2016-05-10] MEDS: PIPERACILL/TAZOBAC IV 4.5 GM in DEXTROSE 5% 100ML 100 ML IV SCH (23:46)
[2016-05-11] VITALS (15 sets, daily range): BP systolic 81–134; BP diastolic 30–74; PULSE 63–67; TEMP 36.4–37.4; O2SAT 96–100
[2016-05-11] MEDS ORDERED: NURSING VERBAL MED ORDER ONE (04:15)
[2016-05-11] MEDS ORDERED: SODIUM CHLORIDE 0.9% 500ML 500 ML IV STA (04:15)
[2016-05-11] MEDS: SODIUM CHLORIDE 0.9% 1000ML 1,000 ML IV SCH ×3 (04:16→20:42)
[2016-05-11] MEDS: LEVOTHYROXINE 137 MCG TAB PO SCH (05:41)
[2016-05-11] MEDS ORDERED: SODIUM CHLORIDE 0.9% 1000ML 1,000 ML IV STA (05:46)
[2016-05-11 06:10] LABS: BUN/CREATININE RATIO 20.1 (10-20); CREATININE 1.4 mg/dl (0.60-1.20); MAGNESIUM 1.6 mg/dl (1.8-2.4); POTASSIUM 4.1 mmol/L (3.5-5.1)
[2016-05-11 06:11] LABS: HEMATOCRIT 20.3 % (37-47); MEAN CORPUSCULAR HEMOGLOBIN 30.2 pg (25-34); MEAN CORPUSCULAR HGB CONC 30.5 g/dl (32-36); PLATELET COUNT 20 K/uL (130-400); RED BLOOD COUNT 2.05 M/uL (4.2-5.4); WHITE BLOOD COUNT 1.75 K/uL (4.8-10.8)
[2016-05-11 06:12] LABS: COMPLETE YES; LYMPH ABS # 0.46 K/uL (1.2-3.4); LYMPHOCYTE % 26.1 %; NEUTROPHILS % 66.1 %; TOXIC GRANULATION 1+
[2016-05-11 06:20] LABS: THYROID STIMULATING HORMONE 1.01 uIu/ml (0.300-4.500)
[2016-05-11 06:21] LABS: CALCIUM 7.5 mg/dl (8.5-10.1)
[2016-05-11] MEDS ORDERED: MAGNESIUM SULFATE 1GM / D5W 1 GM in PREMIXED IN D5W 100 ML IV ONE (06:30)
[2016-05-11] MEDS: INSULIN ASPART 100 UNITS/ML 3 ML PEN SC SCH ×4 (07:49→20:40)
[2016-05-11] MEDS: PIPERACILL/TAZOBAC IV 4.5 GM in DEXTROSE 5% 100ML 100 ML IV SCH ×2 (07:49→16:19)
[2016-05-11] MEDS: FLUTICASONE PROPIONATE NA SPR 16 GM BTL NAE SCH (07:50)
[2016-05-11] MEDS: DOXYCYCLINE HYCLATE 100 MG CAP PO SCH ×2 (07:50→20:41)
[2016-05-11] MEDS: FLUTICASONE/SALMETEROL 250/50 (ADVAIR) 14 PUFF/1 INHALER INH SCH ×2 (07:50→20:41)
--- NOTE | 2016-05-11 08:24 | Clinical Documentation Query ---
CHERY Hoskins : CLINICAL DOCUMENTATION QUERY H&P notes neutropenia, thrombocytopenia, and anemia in the setting of small cell lung cancer with chemotherapy as recent as 04/30/16. She has been placed on neutropenic precautions, sanchez cultured, placed on IV Zosyn, Vancomycin, and Doxycycline, IVF, ID and hematology/oncology consulted, and is being monitored with serial hematology. Ordered to be transfused 2 units of PRBC's this a.m. As appropriate, consider clarification as suggested below as this significantly impacts measures of severity of illness and associated risk of mortality. In your clinical opinion is this patient being managed for: ( ) Antineoplastic chemotherapy induced pancytopenia ( ) Other explanation of clinical findings (Please Explain) ( ) Unable to determine (Please Define) ( ) Need to Discuss ( ) Not Agree The medical record reflects the following clinical findings, treatment, and risk factors. Clinical Indicators: As above Treatment: She has been placed on neutropenic precautions, sanchez cultured, placed on IV Zosyn, Vancomycin, and Doxycycline, IVF, ID and hematology/oncology consulted, and is being monitored with serial hematology. Ordered to be transfused 2 units of PRBC's this a.m. Risk Factors: Chemotherapy administration as recently as 04/30/16. Please clarify and document your clinical opinion in the progress notes and discharge summary. Terms such as "probable", "suspected", "likely", "questionable", "possible", or "still to be ruled out" are acceptable. IF IN AGREEMENT, YOU MUST DOCUMENT ABOVE DIAGNOSTIC STATEMENT IN DAILY PROGRESS NOTES AND DISCHARGE SUMMARY. This document is not part of the patient's record. Thank You, Blake Henao, LUCRECIA [id number]
--- NOTE | 2016-05-11 09:23 | Medical Consult ---
Consultation Date of Consultation: May 11, 2016. Attending Physician: Yu Goel M.D. Reason for Consultation: Febrile neutropenia in the setting of palliative chemotherapy for Stage IV SCLC , last chemotherapy with carboplatin/etoposide 04/30/16, received supportive Neulasta History of Present Illness Ms. 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 In February 2016, she was admitted at [facility] for increasing shortness of breath, underwent pleurectomy and pleurodesis by Dr. Butts. She started on etoposide and carboplatin 03/16/2016, s/p 3 cycles as of 04/30/16. Her Hgb was noted to be 7.1 g/dL that day and so she was arranged to receive 2 units PRBC with 20 mg Lasix between each unit at [facility]. On 05/09/2016, she developed severe cold-like symptoms including rhinorrhea, sore throat and cough. She presented to the emergency room yesterday due to the severity of her illness. She was noted to be neutropenic with an ANC in the 1000 range and febrile upon presentation. She also has severe thrombocytopenia without active bleeding. She tested positive for influenza B. she has been started on Tamiflu. There is a question of a right sided pneumonia by chest x-ray. She is currently covered with broad-spectrum antibiotics with Zosyn, vancomycin and doxycycline. This morning her hemoglobin dropped from 8 range to 6.2 g/ dL. 2 units of PRBC have been ordered. She has urine culture and blood culture x2 pending. Additional history obtained from the patient at bedside. Patient is feeling improved since her admission. She is having and improvement in her cough and dyspnea; she has no sputum production. She states her appetite is decreased, but she did eat some of her fist. She has not had nausea, bowel irregularity, hematochezia or melena. She denies dysuria or hematuria. She denies any bleeding from any sites. Past Medical/Surgical History Medical Problems: (1) Hypoxia Status: Acute (2) Hypoxia Status: Acute (3) Hypoxia Status: Acute (4) Influenza B Status: Acute (5) Pleural effusion Status: Acute (6) Pleural effusion Status: Acute (7) Pneumonia Status: Acute (8) SOB (shortness of breath) Status: Acute Family History Diabetes mellitus Heart disease Hypertension Social History Smoking Status: Former Smoker Alcohol Use: none Drug Use: none Marital Status: Housing Status: lives alone Occupation Status: unemployed Allergies Coded Allergies: No Known Allergies (Verified , 05/13/16) Current Inpatient Medications Current Inpatient Medications Medications (Trade) Dose Ordered Sig/Gilbert Route Start Time Stop Time Status Last Admin Dose Admin Acetaminophen (Tylenol Tab) 650 mg Q4H PRN PO 05/10/16 19:45 06/09/16 19:44 05/10/16 22:31 650 MG Ondansetron HCl (Zofran Inj) 4 mg Q6H PRN IV 05/10/16 19:45 06/09/16 19:44 Vancomycin HCl (Consult) 1 ea UD PRN N/A 05/10/16 20:04 06/09/16 20:03 Piperacillin Sod/ Tazobactam Sod (Consult) 1 ea UD PRN N/A 05/10/16 20:05 06/09/16 20:04 Doxycycline Hyclate 100 mg 100 mg BID PO 05/10/16 21:00 05/17/16 20:59 05/11/16 07:50 100 MG Sodium Chloride (Nss 1000ml) 1,000 ml @ 125 mls/hr Q8H IV 05/10/16 19:45 06/09/16 19:44 05/11/16 04:16 125 MLS/HR Miscellaneous Information (Pharmacy Consult) 1 ea UD PRN N/A 05/10/16 20:06 06/09/16 20:05 Oseltamivir Phosphate 30 mg 30 mg DAILY@2100 PO 05/10/16 21:00 05/15/16 20:59 05/10/16 21:48 30 MG Piperacillin Sod/ Tazobactam Sod/ Dextrose (Zosyn Iv/D5 100ml) 120 ml @ 30 mls/hr Q8@0000,0800,1600 IV 05/11/16 00:00 05/18/16 00:00 05/11/16 07:49 30 MLS/HR Albuterol (Ventolin Hfa Inhaler) 1 puffs Q4 PRN INH 05/10/16 20:30 06/09/16 20:29 Salmeterol Xinafoate/ Fluticasone (Advair Diskus 250/50 Inh) 1 puff BID INH 05/10/16 21:00 06/09/16 20:59 05/11/16 07:50 1 PUFF Fluticasone Propionate (Flonase Nasal [place]) 2 sprays DAILY LATRICE 05/11/16 09:00 06/10/16 08:59 05/11/16 07:50 2 SPRAYS Insulin Aspart (novoLOG ASPART) SLIDING SCALE If C... ACHS SC 05/10/16 21:00 06/09/16 20:59 Glucose (Glucose 40% Gel) 15-30 GRAMS 15 GRAMS... UD PRN PO 05/10/16 20:30 06/09/16 20:29 Glucose (Glucose Chew Tab) 4-8 Tablets 4 Tabl... UD PRN PO 05/10/16 20:30 06/09/16 20:29 Dextrose (Dextrose 50% 50ML Syringe) 25-50ML OF 50% DW IV FOR... UD PRN IV 05/10/16 20:30 06/09/16 20:29 Glucagon (Glucagon Inj) 1 mg UD PRN SQ 05/10/16 20:30 06/09/16 20:29 Albuterol/ Ipratropium (Duoneb) 3 ml Q4H PRN INH 05/10/16 21:00 06/09/16 20:59 Levothyroxine Sodium (Synthroid Tab) 137 mcg DAILYBB PO 05/11/16 06:00 06/10/16 05:59 05/11/16 05:41 137 MCG Heparin Sodium (Porcine) (Heparin 100 Unit/ml 5ml Flush) 5 ml PRN PRN IV 05/11/16 00:45 06/10/16 00:44 Review of Systems Constitutional: + fatigue, + fever (on admission), No chills ENT: + sore throat Respiratory: + cough, + shortness of breath (improved since admission, on 3L of oxygen which is standard for patient), No sputum Abdomen: No GI bleeding, No constipation, No diarrhea, No nausea Genitourinary - Female: No dysuria, No hematuria Integumentary: No rash Physical Exam Date Time Temp Pulse Resp B/P Pulse Ox O2 Delivery O2 Flow Rate FiO2 05/11/16 07:51 36.7 63 22 97/36 99 Nasal Cannula 3.0 05/11/16 04:00 37.0 64 18 81/52 96 Nasal Cannula 3.0 05/11/16 04:00 Nasal Cannula 3.0 05/11/16 03:45 65 86/30 05/11/16 00:00 37.4 05/11/16 00:00 Nasal Cannula 2.0 05/10/16 23:35 38.6 72 24 106/35 97 Nasal Cannula 3.0 05/10/16 21:00 37.9 87 22 94/55 95 Nasal Cannula 2.0 05/10/16 20:14 78 16 81/48 97 05/10/16 18:37 37.4 78 18 89/49 96 3.0 05/10/16 17:50 76 05/10/16 17:30 77 99/55 05/10/16 17:26 95 Nasal Cannula 2.0 05/10/16 17:26 78 22 84/47 93 Nasal Cannula 2.0 05/10/16 17:25 93 Nasal Cannula 2.0 05/10/16 17:11 37.9 80 20 80/40 92 Nasal Cannula 2.0 74/35 General Appearance: WD/WN, no apparent distress, + obese ENT: hearing grossly normal Respiratory/Chest: lungs clear, no respiratory distress, no accessory muscle use Abdomen/GI: normal bowel sounds, non tender, soft Extremities/Musculoskelatal: no calf tenderness, + swelling (of calves, trace to 1+) Neurologic/Psych: alert, normal mood/affect, oriented x 3 Skin: warm/dry, no rash Laboratory Results 05/10/16 17:32 Red Blood Count 2.61, Mean Corpuscular Volume 98.9, Mean Corpuscular Hemoglobin 31.4, Mean Corpuscular Hemoglobin Concent 31.8, Mean Platelet Volume 10.2, Neutrophils (%) (Auto) 55.7, Lymphocytes (%) (Auto) 23.8, Monocytes (%) (Auto) 19.0, Eosinophils (%) (Auto) 0.5, Basophils (%) (Auto) 0.5, Neutrophils # (Auto ) 1.05, Lymphocytes # (Auto) 0.45, Monocytes # (Auto) 0.36, Eosinophils # (Auto ) 0.01, Basophils # (Auto) 0.01 05/11/16 05:18 Red Blood Count 2.05, Mean Corpuscular Volume 99.0, Mean Corpuscular Hemoglobin 30.2, Mean Corpuscular Hemoglobin Concent 30.5, Mean Platelet Volume 12.0 05/10/16 17:32 05/11/16 05:18 Test 05/10/16 17:32 05/10/16 18:00 05/10/16 18:01 05/10/16 18:06 White Blood Count 1.89 K/uL (4.8-10.8) Red Blood Count 2.61 M/uL (4.2-5.4) Hemoglobin 8.2 g/dL (12.0-16.0) Hematocrit 25.8 % (37-47) Mean Corpuscular Volume 98.9 fL (80-100) Mean Corpuscular Hemoglobin 31.4 pg (25-34) Mean Corpuscular Hemoglobin Concent 31.8 g/dl (32-36) Platelet Count 22 K/uL (130-400) Mean Platelet Volume 10.2 fL (7.4-10.4) Neutrophils (%) (Auto) 55.7 % Lymphocytes (%) (Auto) 23.8 % Monocytes (%) (Auto) 19.0 % Eosinophils (%) (Auto) 0.5 % Basophils (%) (Auto) 0.5 % Neutrophils # (Auto) 1.05 K/uL (1.4-6.5) Lymphocytes # (Auto) 0.45 K/uL (1.2-3.4) Monocytes # (Auto) 0.36 K/uL (0.11-0.59) Eosinophils # (Auto) 0.01 K/uL (0-0.5) Basophils # (Auto) 0.01 K/uL (0-0.2) RDW Standard Deviation 64.3 fL (36.4-46.3) RDW Coefficient of Variation 18.1 % (11.5-14.5) Immature Granulocyte % (Auto) 0.5 % Immature Granulocyte # (Auto) 0.01 K/uL (0.00-0.02) Toxic Granulation 2+ Toxic Vacuolation 1+ Dohle Bodies 1+ Platelet Estimate SIGNIFIC DECREASED Poikilocytosis PRESENT Anisocytosis PRESENT Prothrombin Time 10.8 SECONDS (9.0-12.0) Prothromb Time International Ratio 1.0 (0.9-1.1) Activated Partial Thromboplast Time 31.9 SECONDS (21.0-31.0) Partial Thromboplastin Ratio 1.2 Anion Gap 8.0 mmol/L (3-11) Est Creatinine Clear Calc Drug Dose 26.8 ml/min Estimated GFR () 38.8 Estimated GFR (Non- 33.5 BUN/Creatinine Ratio 21.8 (10-20) Calcium Level 8.9 mg/dl (8.5-10.1) Total Bilirubin 0.3 mg/dl (0.2-1) Aspartate Amino Transf (AST/SGOT) 16 U/L (15-37) Alanine Aminotransferase (ALT/SGPT) 19 U/L (12-78) Alkaline Phosphatase 59 U/L (45-117) Total Protein 6.7 gm/dl (6.4-8.2) Albumin 2.8 gm/dl (3.4-5.0) Globulin 3.9 gm/dl (2.5-4.0) Albumin/Globulin Ratio 0.7 (0.9-2) Influenza Type A Antigen Neg for Influ A (NEG) Influenza Type B Antigen POS for Influ B (NEG) Bedside Lactic Acid Venous 0.95 mmol/L (0.90-1.70) 0.99 mmol/L (0.90-1.70) Test 05/10/16 21:04 05/10/16 21:05 05/11/16 05:18 05/11/16 06:18 Bedside Glucose 115 mg/dl (70-90) Urine Color YELLOW Urine Appearance CLEAR (CLEAR) Urine pH 5.0 (4.5-7.5) Urine Specific [place] 1.019 (1.000-1.030) Urine Protein 1+ (NEG) Urine Glucose (UA) NEG (NEG) Urine Ketones TRACE (NEG) Urine Occult Blood NEG (NEG) Urine Nitrite NEG (NEG) Urine Bilirubin NEG (NEG) Urine Urobilinogen NEG (NEG) Urine Leukocyte Esterase TRACE (NEG) Urine WBC (Auto) 1-5 /hpf (0-5) Urine RBC (Auto) 0-4 /hpf (0-4) Urine Hyaline Casts (Auto) 1-5 /lpf (0-5) Urine Epithelial Cells (Auto) >30 /lpf (0-5) Urine Bacteria (Auto) NEG (NEG) White Blood Count 1.75 K/uL (4.8-10.8) Red Blood Count 2.05 M/uL (4.2-5.4) Hemoglobin 6.2 g/dL (12.0-16.0) Hematocrit 20.3 % (37-47) Mean Corpuscular Volume 99.0 fL (80-100) Mean Corpuscular Hemoglobin 30.2 pg (25-34) Mean Corpuscular Hemoglobin Concent 30.5 g/dl (32-36) Platelet Count 20 K/uL (130-400) Mean Platelet Volume 12.0 fL (7.4-10.4) RDW Standard Deviation 65.5 fL (36.4-46.3) RDW Coefficient of Variation 18.3 % (11.5-14.5) Neutrophils % (Manual) 66.1 % Lymphocytes % (Manual) 26.1 % Monocytes % (Manual) 7.8 % Neutrophils # (Manual) 1.16 K/uL (1.4-6.5) Total Absolute Neutrophils 1.16 K/uL (1.4-6.5) Lymphocytes # (Manual) 0.46 K/uL (1.2-3.4) Total Absolute Lymphocytes 0.46 K/uL (1.2-3.4) Monocytes # (Manual) 0.14 K/uL (0.11-0.59) Toxic Granulation 1+ Anion Gap 6.0 mmol/L (3-11) Est Creatinine Clear Calc Drug Dose 29.0 ml/min Estimated GFR () 42.2 Estimated GFR (Non- 36.4 BUN/Creatinine Ratio 20.1 (10-20) Calcium Level 7.5 mg/dl (8.5-10.1) Magnesium Level 1.6 mg/dl (1.8-2.4) Thyroid Stimulating Hormone (TSH) 1.010 uIu/ml (0.300-4.500) Lactic Acid Level 0.6 mmol/L (0.4-2.0) Test 05/11/16 06:32 Bedside Glucose 86 mg/dl (70-90) Chest x-ray from 05/10/2016: Cardiomegaly unchanged. Small right pleural effusion. Right hilar fullness again noted, may be due to lymphadenopathy. Pulmonary vascular congestion. Hazy right lung airspace opacities are present. Assessment & Plan 1. Febrile neutropenia in the setting of palliative chemotherapy for Stage IV SCLC * Influenza B positive on admission- on Tamiflu; ID consulted * Question of right lung PNA- patient on broad spectrum antibiotics with vancomycin, doxycycline, Zosyn- ID agreeable until cultures resulted * Blood culture x 2 and urine culture pending (UA not suspicious for infectious source) * ANC around 1000 yesterday and today- likely multifactorial from last chemotherapy administration on 04/30/16 and acute infection with influenza * No G-CSF advised at this time as patient received supportive Neulasta after her last chemotherapy treatment * Neutropenia precautions advised 2. Acute on chronic anemia of multiple mechanisms- likely from anemia of malignancy, chemotherapy related; acute decline from yesterday to today of 2 g/ dL * Appears patient received 3.5 L of NSS since admission and also 125 mL NSS/hr for fluid resuscitation, so component of hemodilution may be present * 2 units PRBC ordered for today * Check CBCD daily and transfuse PRBC if Hgb < 7 3. Thrombocytopenia- likely multiple mechanisms including bone marrow suppression from recent chemotherapy and acute infection with influenza * Check CBCD daily; advise PLT tranfusions of PLT < 10K and/or actively bleeding. * I performed a history and physical examination of the patient and discussed the management with Aster Johnson PA-C (05/12/2016). . I reviewed her note and agree with the documented findings and plan of care. In summary, she is a 75-year-old female, a case of small-cell carcinoma of the right lung with malignant right pleural effusion, no evidence of distant metastases noted in the imaging studies, presently she is receiving systemic chemotherapy with etoposide and carboplatin,, so far she received 3 cycles of chemotherapy, last cycle of chemotherapy was received on 04/30/2016, she did receive blood transfusion earlier, now she's admitted in the hospital for influenza B infection, pancytopenia noted, she did receive prophylactic Neulasta , I'm expecting her white blood cell count is likely to improve, no need for neupogen, platelet count is on the lower side but no bleeding competitions, no need for prophylactic platelet transfusion, we should consider for platelet transfusion if her platelet count is less than 10,000 or if she has bleeding complications. I'm expecting her to recover the next few days and will see back in the office. Dr. Veto Ortega Hem/Onc
--- NOTE | 2016-05-11 09:30 | Medical Consult ---
Consultation Date of Consultation: May 11, 2016. Attending Physician: Yu Goel M.D. Reason for Consultation: febrile neutropenia History of Present Illness 75-year-old female with longstanding COPD now diagnosed non-small cell carcinoma of the right lung was hospitalized in February with malignant pleural effusion requiring pleurectomy and pleurodesis. She has now been undergoing chemotherapy. She has been found to be significantly pancytopenic. She was now admitted with 2-3 day history of fever, chills, severe myalgias and arthralgias, nasal congestion, and cough. She continues to have significant pancytopenia with neutropenia. PCR for influenza B is positive. Chest x-ray, read by me, shows possible infiltrate in the right lung. She has been started empirically on IV vancomycin and Zosyn. Cultures are pending. She is feeling slightly better this morning. Anemia has worsened. Past Medical/Surgical History Medical Problems: (1) Hypoxia Status: Acute (2) Hypoxia Status: Acute (3) Hypoxia Status: Acute (4) Influenza B Status: Acute (5) Pleural effusion Status: Acute (6) Pleural effusion Status: Acute (7) Pneumonia Status: Acute (8) SOB (shortness of breath) Status: Acute Medical Problems: (1) Carotid stenosis (2) COPD (chronic obstructive pulmonary disease) (3) COPD exacerbation (4) DM2 (diabetes mellitus, type 2) (5) Hypertension (6) Hypertensive heart disease (7) Hypotension (8) Hypothyroid (9) Kidney disease (10) Lung cancer (11) Nocturnal hypoxemia (12) Pancytopenia (13) Pulmonary hypertension (14) Respiratory failure, acute (15) Small cell carcinoma of right lung Surgical Problems: (1) H/O endarterectomy (2) History of total abdominal hysterectomy (3) S/p pleurectomy and pleurodesis (4) S/P thoracentesis Family History Diabetes mellitus Heart disease Hypertension Social History Smoking Status: Former Smoker Alcohol Use: none Drug Use: none Marital Status: Housing Status: lives alone Occupation Status: unemployed Allergies Coded Allergies: No Known Allergies (Verified , 05/10/16) Current Inpatient Medications Current Inpatient Medications Medications (Trade) Dose Ordered Sig/Gilbert Route Start Time Stop Time Status Last Admin Dose Admin Acetaminophen (Tylenol Tab) 650 mg Q4H PRN PO 05/10/16 19:45 06/09/16 19:44 05/10/16 22:31 650 MG Ondansetron HCl (Zofran Inj) 4 mg Q6H PRN IV 05/10/16 19:45 06/09/16 19:44 Vancomycin HCl (Consult) 1 ea UD PRN N/A 05/10/16 20:04 06/09/16 20:03 Piperacillin Sod/ Tazobactam Sod (Consult) 1 ea UD PRN N/A 05/10/16 20:05 06/09/16 20:04 Doxycycline Hyclate 100 mg 100 mg BID PO 05/10/16 21:00 05/17/16 20:59 05/11/16 07:50 100 MG Sodium Chloride (Nss 1000ml) 1,000 ml @ 125 mls/hr Q8H IV 05/10/16 19:45 06/09/16 19:44 05/11/16 04:16 125 MLS/HR Miscellaneous Information (Pharmacy Consult) 1 ea UD PRN N/A 05/10/16 20:06 06/09/16 20:05 Oseltamivir Phosphate 30 mg 30 mg DAILY@2100 PO 05/10/16 21:00 05/15/16 20:59 05/10/16 21:48 30 MG Piperacillin Sod/ Tazobactam Sod/ Dextrose (Zosyn Iv/D5 100ml) 120 ml @ 30 mls/hr Q8@0000,0800,1600 IV 05/11/16 00:00 05/18/16 00:00 05/11/16 07:49 30 MLS/HR Albuterol (Ventolin Hfa Inhaler) 1 puffs Q4 PRN INH 05/10/16 20:30 06/09/16 20:29 Salmeterol Xinafoate/ Fluticasone (Advair Diskus 250/50 Inh) 1 puff BID INH 05/10/16 21:00 06/09/16 20:59 05/11/16 07:50 1 PUFF Fluticasone Propionate (Flonase Nasal [place]) 2 sprays DAILY LATRICE 05/11/16 09:00 06/10/16 08:59 05/11/16 07:50 2 SPRAYS Insulin Aspart (novoLOG ASPART) SLIDING SCALE If C... ACHS SC 05/10/16 21:00 06/09/16 20:59 Glucose (Glucose 40% Gel) 15-30 GRAMS 15 GRAMS... UD PRN PO 05/10/16 20:30 06/09/16 20:29 Glucose (Glucose Chew Tab) 4-8 Tablets 4 Tabl... UD PRN PO 05/10/16 20:30 06/09/16 20:29 Dextrose (Dextrose 50% 50ML Syringe) 25-50ML OF 50% DW IV FOR... UD PRN IV 05/10/16 20:30 06/09/16 20:29 Glucagon (Glucagon Inj) 1 mg UD PRN SQ 05/10/16 20:30 06/09/16 20:29 Albuterol/ Ipratropium (Duoneb) 3 ml Q4H PRN INH 05/10/16 21:00 06/09/16 20:59 Levothyroxine Sodium (Synthroid Tab) 137 mcg DAILYBB PO 05/11/16 06:00 06/10/16 05:59 05/11/16 05:41 137 MCG Heparin Sodium (Porcine) (Heparin 100 Unit/ml 5ml Flush) 5 ml PRN PRN IV 05/11/16 00:45 06/10/16 00:44 Review of Systems Constitutional: + chills, + fatigue, + fever, + weakness Eyes: No problem reported ENT: + nasal symptoms, + sore throat Respiratory: + cough, No hemoptysis Cardiovascular: No problem reported Abdomen: + nausea Musculoskeletal: + joint pain, + muscle pain Genitourinary - Female: No problem reported Neurologic: No problem reported Psychiatric: No problem reported Endocrine: No problem reported Hematologic / Lymphatic: No problem reported Integumentary: No problem reported Allergic / Immunologic: No problem reported Physical Exam Date Time Temp Pulse Resp B/P Pulse Ox O2 Delivery O2 Flow Rate FiO2 05/11/16 07:51 36.7 63 22 97/36 99 Nasal Cannula 3.0 05/11/16 04:00 37.0 64 18 81/52 96 Nasal Cannula 3.0 05/11/16 04:00 Nasal Cannula 3.0 05/11/16 03:45 65 86/30 05/11/16 00:00 37.4 05/11/16 00:00 Nasal Cannula 2.0 05/10/16 23:35 38.6 72 24 106/35 97 Nasal Cannula 3.0 05/10/16 21:00 37.9 87 22 94/55 95 Nasal Cannula 2.0 05/10/16 20:14 78 16 81/48 97 05/10/16 18:37 37.4 78 18 89/49 96 3.0 05/10/16 17:50 76 05/10/16 17:30 77 99/55 05/10/16 17:26 95 Nasal Cannula 2.0 05/10/16 17:26 78 22 84/47 93 Nasal Cannula 2.0 05/10/16 17:25 93 Nasal Cannula 2.0 05/10/16 17:11 37.9 80 20 80/40 92 Nasal Cannula 2.0 74/35 General Appearance: no apparent distress, + pertinent finding (chronically ill- appearing) Head: normocephalic, atraumatic Eyes: normal inspection, EOMI, sclerae normal ENT: normal ENT inspection, hearing grossly normal, pharynx normal Neck: supple, no adenopathy, thyroid normal, trachea midline Respiratory/Chest: chest non-tender, lungs clear, normal breath sounds, no respiratory distress Cardiovascular: regular rate, rhythm, no gallop, no murmur Abdomen/GI: normal bowel sounds, non tender, soft, no organomegaly Back: normal inspection, no CVA tenderness Extremities/Musculoskelatal: normal inspection, no calf tenderness, non-tender Neurologic/Psych: alert, oriented x 3 Skin: normal color, warm/dry, no rash Lymphatic: no adenopathy Laboratory Results Date/Time Source Procedure Growth Status 05/10/16 18:00 Blood Blood Culture Pending Received 05/10/16 17:32 Blood Blood Culture Pending Received 05/10/16 21:05 Urine , Clean Catch Urine Culture Pending Received Last 24 Hours Test 05/10/16 17:32 05/10/16 18:00 05/10/16 18:01 05/10/16 18:06 White Blood Count 1.89 K/uL Red Blood Count 2.61 M/uL Hemoglobin 8.2 g/dL Hematocrit 25.8 % Mean Corpuscular Volume 98.9 fL Mean Corpuscular Hemoglobin 31.4 pg Mean Corpuscular Hemoglobin Concent 31.8 g/dl Platelet Count 22 K/uL Mean Platelet Volume 10.2 fL Neutrophils (%) (Auto) 55.7 % Lymphocytes (%) (Auto) 23.8 % Monocytes (%) (Auto) 19.0 % Eosinophils (%) (Auto) 0.5 % Basophils (%) (Auto) 0.5 % Neutrophils # (Auto) 1.05 K/uL Lymphocytes # (Auto) 0.45 K/uL Monocytes # (Auto) 0.36 K/uL Eosinophils # (Auto) 0.01 K/uL Basophils # (Auto) 0.01 K/uL RDW Standard Deviation 64.3 fL RDW Coefficient of Variation 18.1 % Immature Granulocyte % (Auto) 0.5 % Immature Granulocyte # (Auto) 0.01 K/uL Toxic Granulation 2+ Toxic Vacuolation 1+ Dohle Bodies 1+ Platelet Estimate SIGNIFIC DECREASED Poikilocytosis PRESENT Anisocytosis PRESENT Prothrombin Time 10.8 SECONDS Prothromb Time International Ratio 1.0 Activated Partial Thromboplast Time 31.9 SECONDS Partial Thromboplastin Ratio 1.2 Sodium Level 140 mmol/L Potassium Level 4.6 mmol/L Chloride Level 106 mmol/L Carbon Dioxide Level 26 mmol/L Anion Gap 8.0 mmol/L Blood Urea Nitrogen 33 mg/dl Creatinine 1.50 mg/dl Est Creatinine Clear Calc Drug Dose 26.8 ml/min Estimated GFR () 38.8 Estimated GFR (Non- 33.5 BUN/Creatinine Ratio 21.8 Random Glucose 101 mg/dl Calcium Level 8.9 mg/dl Total Bilirubin 0.3 mg/dl Aspartate Amino Transf (AST/SGOT) 16 U/L Alanine Aminotransferase (ALT/SGPT) 19 U/L Alkaline Phosphatase 59 U/L Total Protein 6.7 gm/dl Albumin 2.8 gm/dl Globulin 3.9 gm/dl Albumin/Globulin Ratio 0.7 Influenza Type A Antigen Neg for Influ A Influenza Type B Antigen POS for Influ B Bedside Lactic Acid Venous 0.95 mmol/L 0.99 mmol/L Test 05/10/16 21:04 05/10/16 21:05 05/11/16 05:18 05/11/16 06:18 Bedside Glucose 115 mg/dl Urine Color YELLOW Urine Appearance CLEAR Urine pH 5.0 Urine Specific [place] 1.019 Urine Protein 1+ Urine Glucose (UA) NEG Urine Ketones TRACE Urine Occult Blood NEG Urine Nitrite NEG Urine Bilirubin NEG Urine Urobilinogen NEG Urine Leukocyte Esterase TRACE Urine WBC (Auto) 1-5 /hpf Urine RBC (Auto) 0-4 /hpf Urine Hyaline Casts (Auto) 1-5 /lpf Urine Epithelial Cells (Auto) >30 /lpf Urine Bacteria (Auto) NEG White Blood Count 1.75 K/uL Red Blood Count 2.05 M/uL Hemoglobin 6.2 g/dL Hematocrit 20.3 % Mean Corpuscular Volume 99.0 fL Mean Corpuscular Hemoglobin 30.2 pg Mean Corpuscular Hemoglobin Concent 30.5 g/dl Platelet Count 20 K/uL Mean Platelet Volume 12.0 fL RDW Standard Deviation 65.5 fL RDW Coefficient of Variation 18.3 % Neutrophils % (Manual) 66.1 % Lymphocytes % (Manual) 26.1 % Monocytes % (Manual) 7.8 % Neutrophils # (Manual) 1.16 K/uL Total Absolute Neutrophils 1.16 K/uL Lymphocytes # (Manual) 0.46 K/uL Total Absolute Lymphocytes 0.46 K/uL Monocytes # (Manual) 0.14 K/uL Toxic Granulation 1+ Sodium Level 141 mmol/L Potassium Level 4.1 mmol/L Chloride Level 110 mmol/L Carbon Dioxide Level 25 mmol/L Anion Gap 6.0 mmol/L Blood Urea Nitrogen 28 mg/dl Creatinine 1.40 mg/dl Est Creatinine Clear Calc Drug Dose 29.0 ml/min Estimated GFR () 42.2 Estimated GFR (Non- 36.4 BUN/Creatinine Ratio 20.1 Random Glucose 90 mg/dl Calcium Level 7.5 mg/dl Magnesium Level 1.6 mg/dl Thyroid Stimulating Hormone (TSH) 1.010 uIu/ml Lactic Acid Level 0.6 mmol/L Test 05/11/16 06:32 Bedside Glucose 86 mg/dl CHEST ONE VIEW PORTABLE CLINICAL HISTORY: Sepsis. COMPARISON STUDY: Chest radiograph April 29, 2016. FINDINGS: A right internal jugular [id number] is in place. Cardiomegaly is unchanged. There is a small right pleural effusion. Right hilar fullness is again noted. There is pulmonary vascular congestion. Hazy right lung airspace opacities are present. IMPRESSION: 1. Small right pleural effusion. 2. Hazy nonspecific right lung airspace opacities. 3. Redemonstration of right hilar fullness which may be due to lymphadenopathy. Electronically signed by: Joon Koehler M.D. 05/10/2016 6:10 PM Dictated Date/Time: 05/10/2016 6:08 PM Assessment & Plan 75 yo female with NSCC of lung on chemotherapy with pancytopenia now with acute influenza B with possible complicating pneumonia. Patient should receive 5 days of oseltamivir and would continue IV antibiotics pending further culture results and F/U CXR. Will follow.
--- NOTE | 2016-05-11 09:59 | Clinical Documentation Query ---
JAY Francis : CLINICAL DOCUMENTATION QUERIES QUERY 1 OF 2 Patient is a 75 year old female admitted for evaluation and treatment of influenza B and possible pneumonia. Noted to be febrile in the setting of neutropenia having undergone chemotherapy last on 04/30/16. She has been placed on Zosyn, Vancomycin, and Doxycycline. ID has been consulted. Neutropenic precautions ordered. As appropriate, please consider documentation as suggested below as this directly impacts DRG assignment. Thank you. In your clinical opinion is this patient being managed for: ( ) Pneumonia due to possible MRSA and/or gram-negative bacteria ( + ) Other explanation of clinical findings (Please Explain) ( ) Unable to determine (Please Define) ( ) Need to Discuss ( ) Not Agree No clear pneumonia, possible pneumonia The medical record reflects the following clinical findings, treatment, and risk factors. Clinical Indicators: As above Treatment:She has been placed on Zosyn, Vancomycin, and Doxycycline. ID has been consulted. Neutropenic precautions ordered Risk Factors: Small cell lung cancer with recent chemotherapy, neutropenia, frequent healthcare interaction, recent antibiotics QUERY 2 OF 2 H&P notes neutropenia, thrombocytopenia, and anemia in the setting of small cell lung cancer with chemotherapy as recent as 04/30/16. She has been placed on neutropenic precautions, sanchez cultured, placed on IV Zosyn, Vancomycin, and Doxycycline, IVF, ID and hematology/oncology consulted, and is being monitored with serial hematology. Ordered to be transfused 2 units of PRBC's this a.m. As appropriate, consider clarification as suggested below as this significantly impacts measures of severity of illness and associated risk of mortality. In your clinical opinion is this patient being managed for: ( ) Antineoplastic chemotherapy induced pancytopenia ( ) Other explanation of clinical findings (Please Explain) ( ) Unable to determine (Please Define) ( ) Need to Discuss ( ) Not Agree The medical record reflects the following clinical findings, treatment, and risk factors. Clinical Indicators: As above Treatment: She has been placed on neutropenic precautions, sanchez cultured, placed on IV Zosyn, Vancomycin, and Doxycycline, IVF, ID and hematology/oncology consulted, and is being monitored with serial hematology. Ordered to be transfused 2 units of PRBC's this a.m. Risk Factors: Chemotherapy administration as recently as 04/30/16. Please clarify and document your clinical opinion in the progress notes and discharge summary. Terms such as "probable", "suspected", "likely", "questionable", "possible", or "still to be ruled out" are acceptable. IF IN AGREEMENT, YOU MUST DOCUMENT ABOVE DIAGNOSTIC STATEMENT IN DAILY PROGRESS NOTES AND DISCHARGE SUMMARY. This document is not part of the patient's record. Thank You, Blake Henao, RN [phone]
--- NOTE | 2016-05-11 10:00 | Clinical Documentation Query ---
RUSLAN HERNANDEZ : CLINICAL DOCUMENTATION QUERY H&P notes neutropenia, thrombocytopenia, and anemia in the setting of small cell lung cancer with chemotherapy as recent as 04/30/16. She has been placed on neutropenic precautions, sanchez cultured, placed on IV Zosyn, Vancomycin, and Doxycycline, IVF, ID and hematology/oncology consulted, and is being monitored with serial hematology. Ordered to be transfused 2 units of PRBC's this a.m. As appropriate, consider clarification as suggested below as this significantly impacts measures of severity of illness and associated risk of mortality. In your clinical opinion is this patient being managed for: ( x ) Antineoplastic chemotherapy induced pancytopenia ( ) Other explanation of clinical findings (Please Explain) ( ) Unable to determine (Please Define) ( ) Need to Discuss ( ) Not Agree The medical record reflects the following clinical findings, treatment, and risk factors. Clinical Indicators: As above Treatment: She has been placed on neutropenic precautions, sanchez cultured, placed on IV Zosyn, Vancomycin, and Doxycycline, IVF, ID and hematology/oncology consulted, and is being monitored with serial hematology. Ordered to be transfused 2 units of PRBC's this a.m. Risk Factors: Chemotherapy administration as recently as 04/30/16. Please clarify and document your clinical opinion in the progress notes and discharge summary. Terms such as "probable", "suspected", "likely", "questionable", "possible", or "still to be ruled out" are acceptable. IF IN AGREEMENT, YOU MUST DOCUMENT ABOVE DIAGNOSTIC STATEMENT IN DAILY PROGRESS NOTES AND DISCHARGE SUMMARY. This document is not part of the patient's record. Thank You, Blake Henao, LUCRECIA [phone]
--- NOTE | 2016-05-11 11:25 | Progress Note ---
Internal Med Progress Note Date of Service: May 11, 2016. Provider Documentation: SUBJECTIVE: Patient is feeling better. c/o feeling tired, no abdominal pain, nausea, vomiting. cough +, no SOB, fever, chills On 2 L oxygen as at home OBJECTIVE: Vital Signs-as noted below Exam: General Appearance: WD/WN, + pertinent finding (acutely ill appearing 75 year old female) ENT: hearing grossly normal, pharynx normal, + pertinent finding (dry oral mucosa) Neck: supple Respiratory/Chest: Air entry bilaterally decreased, no wheezing, rhonchi, rales ; Port present- left side Cardiovascular: regular rate, rhythm, normal peripheral pulses Abdomen/GI: normal bowel sounds, non tender, soft Extremities/Musculoskelatal: No edema Neurologic/Psych: alert, normal mood/affect, oriented x 3, No focal deficits grossly Lab data as noted below. ASSESSMENT & PLAN: FEBRILE NEUTROPENIA LIKELY SECONDARY TO INFLUENZA B, POSSIBLE PNEUMONIA Fever 37.9; WBC 1.89, Neutrophils 1.05, Hypotension,No tachycardia, Lactate WNL on presentation -Afebrile now -IV Vancomycin, Doxycycline, IV Zosyn (Day 2) -IV fluids - decrease rate -Work up- Follow up cultures, Speech therapy evaluation requested -ID on board -Neutropenic precautions INFLUENZA B -Continue with Tamiflu (Day 2)- pharmacy consulted for renal dosing -Droplet precautions HYPOTENSION- Improving -Improving with IVF's -Reduced carvedilol to 12.5 mg BID with holding parameters -Hold other anti-hypertensives -Continue IVF's PANCYTOPENIA- Worsening -Multifactorial: S/P Chemotherapy, Influenza B -No active bleeding -Case was discussed with Dr Sandoval- No indication for platelet transfusion currently -Monitor counts ANEMIA -Hg 7.1 on 04/27/16 -> received 2 units as outpatient -> 8.2 on presentation--> 6.2 today -Likely secondary to chemotherapy, carcinoma -No signs of active bleeding, no melena/fresh red blood with stools -Will do FOBT -Transfuse 2 units PRBCs today -Monitor H & H WORSENING RENAL FUNCTION Creat was 0.9 in early Mar 2016 -> running 1.4-1.5 after that -Diuretics on hold; On IVF -Monitor renal function SMALL CELL LUNG CANCER -With malignant right pleural effusion s/p pleurectomy and pleurodesis recently -No evidence of distant metastasis- recent bone scan and MRI brain negative -On etoposide/ carboplatin chemo- last tx 04/30/16 -Follows with Dr. Ortega-Hem/onc consulted CHRONIC RESPIRATORY FAILURE/ COPD Not in exacerbation -Continue home inhalers -PRN nebs -Continue home supplemental O2 (2 L) PULMONARY HYPERTENSION -Hold sildenafil due to hypotension HYPOTHYROIDISM -Continue levothyroxine -TSH-normal DM TYPE 2 Hold glipizide -Insulin sliding scale coverage -A1c was 6.3 on 02/22/16 DVT PROPHYLAXIS -SCD's due to thrombocytopenia CODE STATUS FULL CODE per my discussion with the patient. DISPOSITION Continue to monitor on tele floor Vital Signs: Date Time Temp Pulse Resp B/P Pulse Ox O2 Delivery O2 Flow Rate FiO2 05/11/16 08:00 Nasal Cannula 3.0 05/11/16 07:51 36.7 63 22 97/36 99 Nasal Cannula 3.0 05/11/16 04:00 37.0 64 18 81/52 96 Nasal Cannula 3.0 05/11/16 04:00 Nasal Cannula 3.0 05/11/16 03:45 65 86/30 05/11/16 00:00 37.4 05/11/16 00:00 Nasal Cannula 2.0 05/10/16 23:35 38.6 72 24 106/35 97 Nasal Cannula 3.0 05/10/16 21:00 37.9 87 22 94/55 95 Nasal Cannula 2.0 05/10/16 20:14 78 16 81/48 97 05/10/16 18:37 37.4 78 18 89/49 96 3.0 05/10/16 17:50 76 05/10/16 17:30 77 99/55 05/10/16 17:26 95 Nasal Cannula 2.0 05/10/16 17:26 78 22 84/47 93 Nasal Cannula 2.0 05/10/16 17:25 93 Nasal Cannula 2.0 05/10/16 17:11 37.9 80 20 80/40 92 Nasal Cannula 2.0 74/35 Lab Results: Results Past 24 Hours Test 05/10/16 17:32 05/10/16 18:00 05/10/16 18:01 05/10/16 18:06 Range/Units White Blood Count 1.89 4.8-10.8 K/uL Red Blood Count 2.61 4.2-5.4 M/uL Hemoglobin 8.2 12.0-16.0 g/dL Hematocrit 25.8 37-47 % Mean Corpuscular Volume 98.9 80-100 fL Mean Corpuscular Hemoglobin 31.4 25-34 pg Mean Corpuscular Hemoglobin Concent 31.8 32-36 g/dl Platelet Count 22 130-400 K/uL Mean Platelet Volume 10.2 7.4-10.4 fL Neutrophils (%) (Auto) 55.7 % Lymphocytes (%) (Auto) 23.8 % Monocytes (%) (Auto) 19.0 % Eosinophils (%) (Auto) 0.5 % Basophils (%) (Auto) 0.5 % Neutrophils # (Auto) 1.05 1.4-6.5 K/uL Lymphocytes # (Auto) 0.45 1.2-3.4 K/uL Monocytes # (Auto) 0.36 0.11-0.59 K/uL Eosinophils # (Auto) 0.01 0-0.5 K/uL Basophils # (Auto) 0.01 0-0.2 K/uL RDW Standard Deviation 64.3 36.4-46.3 fL RDW Coefficient of Variation 18.1 11.5-14.5 % Immature Granulocyte % (Auto) 0.5 % Immature Granulocyte # (Auto) 0.01 0.00-0.02 K/uL Toxic Granulation 2+ Toxic Vacuolation 1+ Dohle Bodies 1+ Platelet Estimate SIGNIFIC DECREASED Poikilocytosis PRESENT Anisocytosis PRESENT Prothrombin Time 10.8 9.0-12.0 SECONDS Prothromb Time International Ratio 1.0 0.9-1.1 Activated Partial Thromboplast Time 31.9 21.0-31.0 SECONDS Partial Thromboplastin Ratio 1.2 Sodium Level 140 136-145 mmol/L Potassium Level 4.6 3.5-5.1 mmol/L Chloride Level 106 98-107 mmol/L Carbon Dioxide Level 26 21-32 mmol/L Anion Gap 8.0 3-11 mmol/L Blood Urea Nitrogen 33 7-18 mg/dl Creatinine 1.50 0.60-1.20 mg/dl Est Creatinine Clear Calc Drug Dose 26.8 ml/min Estimated GFR () 38.8 Estimated GFR (Non- 33.5 BUN/Creatinine Ratio 21.8 10-20 Random Glucose 101 70-99 mg/dl Calcium Level 8.9 8.5-10.1 mg/dl Total Bilirubin 0.3 0.2-1 mg/dl Aspartate Amino Transf (AST/SGOT) 16 15-37 U/L Alanine Aminotransferase (ALT/SGPT) 19 12-78 U/L Alkaline Phosphatase 59 45-117 U/L Total Protein 6.7 6.4-8.2 gm/dl Albumin 2.8 3.4-5.0 gm/dl Globulin 3.9 2.5-4.0 gm/dl Albumin/Globulin Ratio 0.7 0.9-2 Influenza Type A Antigen Neg for Influ A NEG Influenza Type B Antigen POS for Influ B NEG Bedside Lactic Acid Venous 0.95 0.99 0.90-1.70 mmol/L Test 05/10/16 21:04 05/10/16 21:05 05/11/16 05:18 05/11/16 06:18 Range/Units Bedside Glucose 115 70-90 mg/dl Urine Color YELLOW Urine Appearance CLEAR CLEAR Urine pH 5.0 4.5-7.5 Urine Specific [place] 1.019 1.000-1.030 Urine Protein 1+ NEG Urine Glucose (UA) NEG NEG Urine Ketones TRACE NEG Urine Occult Blood NEG NEG Urine Nitrite NEG NEG Urine Bilirubin NEG NEG Urine Urobilinogen NEG NEG Urine Leukocyte Esterase TRACE NEG Urine WBC (Auto) 1-5 0-5 /hpf Urine RBC (Auto) 0-4 0-4 /hpf Urine Hyaline Casts (Auto) 1-5 0-5 /lpf Urine Epithelial Cells (Auto) >30 0-5 /lpf Urine Bacteria (Auto) NEG NEG White Blood Count 1.75 4.8-10.8 K/uL Red Blood Count 2.05 4.2-5.4 M/uL Hemoglobin 6.2 12.0-16.0 g/dL Hematocrit 20.3 37-47 % Mean Corpuscular Volume 99.0 80-100 fL Mean Corpuscular Hemoglobin 30.2 25-34 pg Mean Corpuscular Hemoglobin Concent 30.5 32-36 g/dl Platelet Count 20 130-400 K/uL Mean Platelet Volume 12.0 7.4-10.4 fL RDW Standard Deviation 65.5 36.4-46.3 fL RDW Coefficient of Variation 18.3 11.5-14.5 % Neutrophils % (Manual) 66.1 % Lymphocytes % (Manual) 26.1 % Monocytes % (Manual) 7.8 % Neutrophils # (Manual) 1.16 1.4-6.5 K/uL Total Absolute Neutrophils 1.16 1.4-6.5 K/uL Lymphocytes # (Manual) 0.46 1.2-3.4 K/uL Total Absolute Lymphocytes 0.46 1.2-3.4 K/uL Monocytes # (Manual) 0.14 0.11-0.59 K/uL Toxic Granulation 1+ Sodium Level 141 136-145 mmol/L Potassium Level 4.1 3.5-5.1 mmol/L Chloride Level 110 98-107 mmol/L Carbon Dioxide Level 25 21-32 mmol/L Anion Gap 6.0 3-11 mmol/L Blood Urea Nitrogen 28 7-18 mg/dl Creatinine 1.40 0.60-1.20 mg/dl Est Creatinine Clear Calc Drug Dose 29.0 ml/min Estimated GFR () 42.2 Estimated GFR (Non- 36.4 BUN/Creatinine Ratio 20.1 10-20 Random Glucose 90 70-99 mg/dl Calcium Level 7.5 8.5-10.1 mg/dl Magnesium Level 1.6 1.8-2.4 mg/dl Thyroid Stimulating Hormone (TSH) 1.010 0.300-4.500 uIu/ml Lactic Acid Level 0.6 0.4-2.0 mmol/L Test 05/11/16 06:32 Range/Units Bedside Glucose 86 70-90 mg/dl Microbiology Results 05/10/16 Blood Culture, Received Pending 05/10/16 Blood Culture, Received Pending 05/10/16 Urine Culture, Received Pending
--- NOTE | 2016-05-11 14:59 | Pharmacy Progress Note ---
Pharmacy Antibiotic Prog Note Date of Service: May 11, 2016. Subjective: The patient has currently received a loading dose of Vancomycin 1800 mg (~25 mg/ kg) IV at approximately 2200 hours on 05/10/16 The patient is currently on day # 2 of Tamiflu PO and Vancomycin/Zosyn IV therapy. Objective: Height (Feet): 4 Height (Inches): 10.00 Weight (Kilograms): 76.600 Levels: Item Value Date Time Random Vancomycin Level 13.9 mcg/ml 05/11/16 1240 Lab Results (24hrs): Laboratory Tests Test 05/10/16 17:32 05/11/16 05:18 BUN/Creatinine Ratio 21.8 20.1 Blood Urea Nitrogen 33 mg/dl 28 mg/dl Creatinine 1.50 mg/dl 1.40 mg/dl White Blood Count 1.89 K/uL 1.75 K/uL Red Blood Count 2.61 M/uL 2.05 M/uL Hemoglobin 8.2 g/dL 6.2 g/dL Hematocrit 25.8 % 20.3 % Mean Corpuscular Volume 98.9 fL 99.0 fL Mean Corpuscular Hemoglobin 31.4 pg 30.2 pg Mean Corpuscular Hemoglobin Concent 31.8 g/dl 30.5 g/dl Platelet Count 22 K/uL 20 K/uL Mean Platelet Volume 10.2 fL 12.0 fL Neutrophils (%) (Auto) 55.7 % Lymphocytes (%) (Auto) 23.8 % Monocytes (%) (Auto) 19.0 % Eosinophils (%) (Auto) 0.5 % Basophils (%) (Auto) 0.5 % Neutrophils # (Auto) 1.05 K/uL Lymphocytes # (Auto) 0.45 K/uL Monocytes # (Auto) 0.36 K/uL Eosinophils # (Auto) 0.01 K/uL Basophils # (Auto) 0.01 K/uL Micro Results: The following cultures are pending: Item Value Date Time Urine Culture Received 05/10/16 2105 Urine , Clean Catch Pending Blood Culture Received 05/10/16 1800 Blood Pending Blood Culture Received 05/10/16 1732 Blood Pending Recent Pertinent Medications: Item Value Date Time Piperacillin Sod/ 120 ml @ 30 mls/hr 05/11/16 0000 Tazobactam Sod Q8@0000,0800,1600/IV 05/11/16 0749 4.5 gm/Dextrose Oseltamivir 30 mg 05/10/16 2100 Phosphate DAILY@2100/PO 05/10/16 2148 (Tamiflu Susp) Doxycycline 100 mg 05/10/16 2100 Hyclate BID/PO 05/11/16 0750 (Vibramycin Cap) Vancomycin HCl 536 ml @ 200 mls/hr 05/10/16 2100 1800 mg/Sodium NOW ONCE/IV 05/10/16 214 Chloride Piperacillin Sod/ 4.5 gm 05/10/16 1814 Tazobactam Sod NOW STAT/IV 05/10/16 1843 (Zosyn Iv) Assessment & Plan: The patient is a 75 year old female admitted on broad sprectrum antibiotic/ antiviral coverage for: * PNX * febrile neutropenia * Influenza-B Pertinent PMH: DM2, COPD, lung CA-chemo ~2 weeks ago, renal impairment A random Vancomycin level from 1240 hours today verified renal clearance of Vancomycin. Scr 1.4 today, thus projected Vancomycin half-life ~23 hours therefore will widen dosing interval to q 28 hours. Continue Vancomycin at 1000 mg IV every 28 hours. Goal peak level estimate: between 30 - 40 mcg/mL. Goal trough level estimate: between 15 - 20 mcg/mL. Vancomycin trough level (pre steady-state) has been ordered for: prior to the 2300 hours dose. Continue Zosyn at 4.5 grams q8 hrs (extended infusion) and Tamiflu at 30mg po daily per creatinine clearance less than 30 ml/minute Pharmacy will continue to follow and will adjust dose/frequency as necessary. Thank you
[2016-05-11] MEDS ORDERED: VANCOMYCIN INJ 1,000 MG in SODIUM CHLORIDE 0.9% 250ML 250 ML IV SCH (15:00)
[2016-05-11 18:25] LABS: HEMATOCRIT 27.9 % (37-47)
[2016-05-11] MEDS: OSELTAMIVIR PHOSPHATE SUSP 30 MG/5 ML UDP PO SCH (20:41)
[2016-05-11] MEDS ORDERED: COUGH DROP (SUGAR FREE) LOZ 24 LOZ/1 BOX ONE (21:19)
[2016-05-11] MEDS ORDERED: COUGH DROP (SUGAR FREE) LOZ 24 LOZ/1 BOX PO PRN (21:30)
[2016-05-11] MEDS ORDERED: NURSING DECISION MEDICATION ORDER SCH (21:30)
[2016-05-12] MEDS: PIPERACILL/TAZOBAC IV 4.5 GM in DEXTROSE 5% 100ML 100 ML IV SCH ×3 (00:19→16:00)
[2016-05-12 03:23] VITALS: BP 110/48; PULSE 65; TEMP 37; O2SAT 99
[2016-05-12] MEDS: LEVOTHYROXINE 137 MCG TAB PO SCH (06:08)
[2016-05-12] MEDS: SODIUM CHLORIDE 0.9% 1000ML 1,000 ML IV SCH (06:10)
[2016-05-12 06:25] LABS: MEAN CELL VOLUME 94.6 fL (80-100); MEAN CORPUSCULAR HEMOGLOBIN 30.7 pg (25-34); MEAN CORPUSCULAR HGB CONC 32.5 g/dl (32-36); PLATELET COUNT 27 K/uL (130-400); RED BLOOD COUNT 2.96 M/uL (4.2-5.4); WHITE BLOOD COUNT 3.25 K/uL (4.8-10.8)
[2016-05-12 06:36] LABS: BUN/CREATININE RATIO 16.6 (10-20); CALCIUM 8.4 mg/dl (8.5-10.1); CREATININE 1.2 mg/dl (0.60-1.20); POTASSIUM 3.9 mmol/L (3.5-5.1)
[2016-05-12] MEDS: INSULIN ASPART 100 UNITS/ML 3 ML PEN SC SCH ×3 (07:00→16:15)
[2016-05-12 08:10] VITALS: BP 140/59; PULSE 67; TEMP 36.4; O2SAT 99
[2016-05-12] MEDS ORDERED: PANTOprazole SOD 40 MG TAB PO SCH (09:00)
[2016-05-12] MEDS: DOXYCYCLINE HYCLATE 100 MG CAP PO SCH ×2 (09:16→19:39)
[2016-05-12] MEDS: FLUTICASONE PROPIONATE NA SPR 16 GM BTL NAE SCH (09:16)
[2016-05-12] MEDS: FLUTICASONE/SALMETEROL 250/50 (ADVAIR) 14 PUFF/1 INHALER INH SCH (09:17)
[2016-05-12 10:51] VITALS: BP 145/62; PULSE 71; TEMP 36.7; O2SAT 98
--- NOTE | 2016-05-12 12:17 | Progress Note ---
Internal Med Progress Note Date of Service: May 12, 2016. Provider Documentation: SUBJECTIVE: Patient is feeling better and adamant about going home today. Says she is ready and her son will come to pick her up and wants to leave no matter what. Refused CXR No abdominal pain, nausea, vomiting. Cough +- improved, no SOB, fever, chills. On 2 L oxygen as at home. Tolerating PO and ambulation well OBJECTIVE: Vital Signs-as noted below Exam: General Appearance: WD/WN, + pertinent finding (acutely ill appearing 75 year old female) ENT: hearing grossly normal, pharynx normal, + pertinent finding (dry oral mucosa) Neck: supple Respiratory/Chest: Air entry bilaterally decreased, no wheezing, rhonchi, rales ; Port present- left side Cardiovascular: regular rate, rhythm, normal peripheral pulses Abdomen/GI: normal bowel sounds, non tender, soft Extremities/Musculoskelatal: No edema Neurologic/Psych: alert, normal mood/affect, oriented x 3, No focal deficits grossly Lab data as noted below. ASSESSMENT & PLAN: FEBRILE NEUTROPENIA LIKELY SECONDARY TO INFLUENZA B, POSSIBLE PNEUMONIA Fever 37.9; WBC 1.89, Neutrophils 1.05, Hypotension,No tachycardia, Lactate WNL on presentation -Afebrile since low grade fever spike on admission -IV Vancomycin, Doxycycline, IV Zosyn (Day 3) -IVF - discontinue -Work up - Blood cx x 2 negative, Urine culture- No significant growth , Speech therapy evaluation requested -ID on board -Neutropenic precautions INFLUENZA B -Continue with Tamiflu (Day 3/5)- pharmacy consulted for renal dosing -Droplet precautions HYPOTENSION- Resolved -Improving with IVF's -Restart home medications- Carvedilol and antihypertensives PANCYTOPENIA- Improving -Multifactorial: S/P Chemotherapy, Influenza B -No active bleeding -Case was discussed with Dr Sandoval- No indication for platelet transfusion currently -Monitor counts ANEMIA -Hg 7.1 on 04/27/16 -> received 2 units as outpatient -> 8.2 on presentation--> 6.2 yesterday--> 9.5 today -Likely secondary to chemotherapy, carcinoma -No signs of active bleeding, no melena/fresh red blood with stools -Transfused 2 units PRBCs on 05/11/16 -Monitor H & H WORSENING RENAL FUNCTION Creat was 0.9 in early Mar 2016 -> running 1.4-1.5 after that-->1.20 today -Diuretics on hold; Discontinue IVF -Monitor renal function SMALL CELL LUNG CANCER -With malignant right pleural effusion s/p pleurectomy and pleurodesis recently -No evidence of distant metastasis- recent bone scan and MRI brain negative -On etoposide/ carboplatin chemo- last tx 04/30/16 -Follows with Dr. Ortega-Hem/onc consulted CHRONIC RESPIRATORY FAILURE/ COPD Not in exacerbation -Continue home inhalers -PRN nebs -Continue home supplemental O2 (2 L) PULMONARY HYPERTENSION -Hold sildenafil due to hypotension HYPOTHYROIDISM -Continue levothyroxine -TSH-normal DM TYPE 2 Hold glipizide -Insulin sliding scale coverage -A1c was 6.3 on 02/22/16 DVT PROPHYLAXIS -SCD's due to thrombocytopenia CODE STATUS FULL CODE per my discussion with the patient. DISPOSITION Adamant about being discharged today or will leave AMA Overall improving, clinically stable. Will try to discharge her in evening. Will talk to son prior to discharging her to update Ambulating well per RN. Vital Signs: Date Time Temp Pulse Resp B/P Pulse Ox O2 Delivery O2 Flow Rate FiO2 05/12/16 10:51 36.7 71 18 145/62 98 Nasal Cannula 3.0 05/12/16 09:36 Nasal Cannula 05/12/16 08:10 36.4 67 18 140/59 99 Nasal Cannula 3.0 05/12/16 04:00 Nasal Cannula 05/12/16 03:23 37.0 65 20 110/48 99 Nasal Cannula 3.0 05/11/16 23:59 Nasal Cannula 05/11/16 23:28 37.0 67 18 133/59 99 Nasal Cannula 3.0 05/11/16 19:39 Nasal Cannula 05/11/16 19:25 37.1 67 20 100/47 98 Nasal Cannula 3.0 05/11/16 16:10 37.1 66 22 109/46 100 Nasal Cannula 3.0 05/11/16 16:00 Nasal Cannula 3.0 05/11/16 15:30 37.2 66 22 115/46 100 3.0 05/11/16 14:30 65 24 112/46 100 3.0 05/11/16 14:30 65 24 112/46 100 3.0 05/11/16 14:15 37.1 66 22 117/52 100 3.0 05/11/16 14:00 36.9 66 23 111/44 100 3.0 05/11/16 13:30 36.7 65 19 112/47 100 3.0 05/11/16 12:30 36.4 66 21 99/37 100 05/11/16 12:08 36.8 65 18 96/74 96 Lab Results: Results Past 24 Hours Test 05/11/16 12:40 05/11/16 16:11 05/11/16 18:17 05/11/16 20:28 Range/Units Random Vancomycin Level 13.9 mcg/ml Bedside Glucose 93 96 70-90 mg/dl Hemoglobin 9.0 12.0-16.0 g/dL Hematocrit 27.9 37-47 % Test 05/12/16 05:35 05/12/16 06:06 05/12/16 11:45 Range/Units White Blood Count 3.25 4.8-10.8 K/uL Red Blood Count 2.96 4.2-5.4 M/uL Hemoglobin 9.1 12.0-16.0 g/dL Hematocrit 28.0 37-47 % Mean Corpuscular Volume 94.6 80-100 fL Mean Corpuscular Hemoglobin 30.7 25-34 pg Mean Corpuscular Hemoglobin Concent 32.5 32-36 g/dl RDW Standard Deviation 64.3 36.4-46.3 fL RDW Coefficient of Variation 18.7 11.5-14.5 % Platelet Count 27 130-400 K/uL Mean Platelet Volume 11.0 7.4-10.4 fL Sodium Level 141 136-145 mmol/L Potassium Level 3.9 3.5-5.1 mmol/L Chloride Level 112 98-107 mmol/L Carbon Dioxide Level 21 21-32 mmol/L Anion Gap 8.0 3-11 mmol/L Blood Urea Nitrogen 20 7-18 mg/dl Creatinine 1.20 0.60-1.20 mg/dl Est Creatinine Clear Calc Drug Dose 35.3 ml/min Estimated GFR () 50.8 Estimated GFR (Non- 43.9 BUN/Creatinine Ratio 16.6 10-20 Random Glucose 78 70-99 mg/dl Calcium Level 8.4 8.5-10.1 mg/dl Bedside Glucose 85 126 70-90 mg/dl
--- NOTE | 2016-05-12 14:41 | Infectious Disease Progress Nt ---
Progress Note Date of Service May 12, 2016. Subjective Pt evaluation today including: conversation w/ patient, physical exam, chart review, lab review, review of studies, conversation w/ health and wellness sales consultant, review of inpatient medication list feeling better today. Less cough, less short of breath. No fever. No obvious difficulty with antibiotics. blood cultures remain negative. White count improved. All Other Systems: Reviewed and Negative Medications Current Inpatient Medications Medications (Trade) Dose Ordered Sig/Gilbert Route Start Time Stop Time Status Last Admin Dose Admin Acetaminophen (Tylenol Tab) 650 mg Q4H PRN PO 05/10/16 19:45 06/09/16 19:44 05/10/16 22:31 650 MG Ondansetron HCl (Zofran Inj) 4 mg Q6H PRN IV 05/10/16 19:45 06/09/16 19:44 Vancomycin HCl (Consult) 1 ea UD PRN N/A 05/10/16 20:04 06/09/16 20:03 Piperacillin Sod/ Tazobactam Sod (Consult) 1 ea UD PRN N/A 05/10/16 20:05 06/09/16 20:04 Doxycycline Hyclate (Vibramycin Cap) 100 mg BID PO 05/10/16 21:00 05/17/16 20:59 05/12/16 09:16 100 MG Miscellaneous Information (Pharmacy Consult) 1 ea UD PRN N/A 05/10/16 20:06 06/09/16 20:05 Oseltamivir Phosphate 30 mg 30 mg DAILY@2100 PO 05/10/16 21:00 05/15/16 20:59 05/11/16 20:41 30 MG Piperacillin Sod/ Tazobactam Sod/ Dextrose (Zosyn Iv/D5 100ml) 120 ml @ 30 mls/hr Q8@0000,0800,1600 IV 05/11/16 00:00 05/18/16 00:00 05/12/16 07:56 30 MLS/HR Albuterol (Ventolin Hfa Inhaler) 1 puffs Q4 PRN INH 05/10/16 20:30 06/09/16 20:29 Salmeterol Xinafoate/ Fluticasone (Advair Diskus 250/50 Inh) 1 puff BID INH 05/10/16 21:00 06/09/16 20:59 05/12/16 09:17 1 PUFF Fluticasone Propionate (Flonase Nasal Zenda) 2 sprays DAILY LATRICE 05/11/16 09:00 06/10/16 08:59 05/12/16 09:16 2 SPRAYS Insulin Aspart (novoLOG ASPART) SLIDING SCALE If C... ACHS SC 05/10/16 21:00 06/09/16 20:59 Glucose (Glucose 40% Gel) 15-30 GRAMS 15 GRAMS... UD PRN PO 05/10/16 20:30 06/09/16 20:29 Glucose (Glucose Chew Tab) 4-8 Tablets 4 Tabl... UD PRN PO 05/10/16 20:30 06/09/16 20:29 Dextrose (Dextrose 50% 50ML Syringe) 25-50ML OF 50% DW IV FOR... UD PRN IV 05/10/16 20:30 06/09/16 20:29 Glucagon (Glucagon Inj) 1 mg UD PRN SQ 05/10/16 20:30 06/09/16 20:29 Albuterol/ Ipratropium (Duoneb) 3 ml Q4H PRN INH 05/10/16 21:00 06/09/16 20:59 Levothyroxine Sodium (Synthroid Tab) 137 mcg DAILYBB PO 05/11/16 06:00 06/10/16 05:59 05/12/16 06:08 137 MCG Heparin Sodium (Porcine) (Heparin 100 Unit/ml 5ml Flush) 5 ml PRN PRN IV 05/11/16 00:45 06/10/16 00:44 Pantoprazole Sodium (Protonix Tab) 40 mg QAM PO 05/12/16 09:00 06/11/16 08:59 05/12/16 09:16 40 MG Menthol 1 mukesh 1 mukesh PRN PRN PO 05/11/16 21:30 06/10/16 21:29 Vancomycin HCl/ Sodium Chloride (Vancomycin Inj/ Nss 250ml) 270 ml @ 125 mls/hr DAILY@1500 IV 05/12/16 15:00 05/17/16 21:45 Objective Vital Signs Date Time Temp Pulse Resp B/P Pulse Ox O2 Delivery O2 Flow Rate FiO2 05/12/16 12:00 Nasal Cannula 2.0 05/12/16 10:51 36.7 71 18 145/62 98 Nasal Cannula 3.0 05/12/16 09:36 Nasal Cannula 05/12/16 08:10 36.4 67 18 140/59 99 Nasal Cannula 3.0 05/12/16 04:00 Nasal Cannula 05/12/16 03:23 37.0 65 20 110/48 99 Nasal Cannula 3.0 05/11/16 23:59 Nasal Cannula 05/11/16 23:28 37.0 67 18 133/59 99 Nasal Cannula 3.0 05/11/16 19:39 Nasal Cannula 05/11/16 19:25 37.1 67 20 100/47 98 Nasal Cannula 3.0 05/11/16 16:10 37.1 66 22 109/46 100 Nasal Cannula 3.0 05/11/16 16:00 Nasal Cannula 3.0 05/11/16 15:30 37.2 66 22 115/46 100 3.0 Physical Exam General Appearance: WD/WN, no apparent distress Eyes: normal inspection, EOMI, sclerae normal ENT: normal ENT inspection, pharynx normal Neck: supple, no adenopathy, trachea midline Respiratory/Chest: chest non-tender, no respiratory distress, no accessory muscle use, + rales Cardiovascular: regular rate, rhythm, no gallop, no murmur Abdomen: normal bowel sounds, non tender, soft, no organomegaly Extremities: non-tender, no calf tenderness Neurologic/Psychiatric: alert, oriented x 3 Skin: normal color, warm/dry, no rash Lymphatic: no adenopathy Laboratory Results RUN DATE: 05/12/16 [facility] PAGE 1 RUN TIME: 1155 Specimen Inquiry PATIENT: VITA BARCLAY Andreea LOC: [place] # : [id number] AGE/SX: 75/F ROOM: [facility] REG : 05/10/[address]: Pooja. Ortega S : 1940 BED: 1 DIS : STATUS: ADM IN TLOC: SPEC #: [id number] VIK: 05/10/16 STATUS: COMP REQ #: [id number] RECD: 05/10/[address] [facility] [address]: Emmy Burroughs PA-C SOURCE: , ENTR: 05/10/16 [facility] DR: Nando Zaman [facility] Callie [facility]dugo M.[facility]. Compere, Wilkerson, M.D. Gray, Keriann N., MD Panlilio, Robin A., MD ORDERED: CULTURE KHOI COMMENTS: Has Specimen Been Obtained/Collected? Y Procedure Result Verified Site URINE CULTURE Final 05/12/16-1155 MORE THAN THREE TYPES OF ORGANISMS PRESENT, ALL LOW COUNTS MIXED PROBABLE SKIN MELODIE. NO FURTHER IDENTIFICATIONS OR SENSITIVITIES TO FOLLOW. Last 24 Hours Test 05/11/16 16:11 05/11/16 18:17 05/11/16 20:28 05/12/16 05:35 Bedside Glucose 93 mg/dl 96 mg/dl Hemoglobin 9.0 g/dL 9.1 g/dL Hematocrit 27.9 % 28.0 % White Blood Count 3.25 K/uL Red Blood Count 2.96 M/uL Mean Corpuscular Volume 94.6 fL Mean Corpuscular Hemoglobin 30.7 pg Mean Corpuscular Hemoglobin Concent 32.5 g/dl RDW Standard Deviation 64.3 fL RDW Coefficient of Variation 18.7 % Platelet Count 27 K/uL Mean Platelet Volume 11.0 fL Sodium Level 141 mmol/L Potassium Level 3.9 mmol/L Chloride Level 112 mmol/L Carbon Dioxide Level 21 mmol/L Anion Gap 8.0 mmol/L Blood Urea Nitrogen 20 mg/dl Creatinine 1.20 mg/dl Est Creatinine Clear Calc Drug Dose 35.3 ml/min Estimated GFR () 50.8 Estimated GFR (Non- 43.9 BUN/Creatinine Ratio 16.6 Random Glucose 78 mg/dl Calcium Level 8.4 mg/dl Test 05/12/16 06:06 05/12/16 11:45 Bedside Glucose 85 mg/dl 126 mg/dl Assessment and Plan 75 yo female with NSCC of lung on chemotherapy with pancytopenia now with acute influenza B with possible complicating pneumonia. Patient should receive 5 days of oseltamivir and would Consider transition to oral antibiotic therapy with combination of doxycycline and cefdinir. Discussed with hospitalist service.
[2016-05-12] MEDS ORDERED: VANCOMYCIN INJ 1,000 MG in SODIUM CHLORIDE 0.9% 250ML 250 ML IV SCH (15:00)
[2016-05-12] MEDS ORDERED: DXY100 PO (15:17)
[2016-05-12] MEDS ORDERED: TMFUDL30 PO (15:17)
[2016-05-12] MEDS ORDERED: CEFD300C2 PO (15:19)
--- NOTE | 2016-05-12 15:22 | Discharge Instructions ---
Discharge Instructions Date of Service May 12, 2016. Admission Reason for Admission: Hypotension, Pancytopenia Discharge Discharge Diagnosis / Problem: 1. Influenza B 2. Possible pneumonia 3. Febrile Neutropenia Discharge Goals Goal(s): Diagnostic testing, Therapeutic intervention Activity Recommendations Activity Limitations: resume your previous activity (as tolerated prior to admission) . Instructions / Follow-Up Instructions / Follow-Up MEDICATION CHANGES: 1 New medication: Cefdinir 300 mg PO BID x 5 more days to complete course of 7 days of antibiotics 2.New medication: Doxycycline 100 mg PO BID x 5 more days to complete course of 7 days of antibiotics 3.New medication: Tamiflu for 3 (today day 3) more days to complete course of 5 days FOLLOW UP 1. With Dr Callie Verdugo on 05/17/16 at 12:45 PM Current Hospital Diet Patient's current hospital diet: Diabetes Type 2 Diet, AHA Diet (Heart Healthy) Discharge Diet Recommended Diet: AHA Diet (Heart Healthy), Low Sodium Diet (2gm Na), Diabetes Type 2 Diet Pending Studies Studies pending at discharge: no Laboratory Results Hemoglobin A1c Test 02/22/16 07:20 Range/Units Estimated Average Glucose 134 mg/dl Hemoglobin A1c 6.3 H 4.5-5.6 % Medical Emergencies . Who to Call and When: Medical Emergencies: If at any time you feel your situation is an emergency, please call 911 immediately. . Non-Emergent Contact Non-Emergency issues call your: Primary Care Provider . . "Provider Documentation" section prepared by Renita Ortega. VTE Core Measure Inpt VTE Proph given/why not?: T.E.D. Stockings (re: anemia), SCD's, Contraindicated
--- NOTE | 2016-05-12 15:27 | Discharge Summary ---
Discharge Summary Date of Service May 12, 2016. Discharge Summary Admission Date: May 10, 2016 at 19:40 Discharge Date: May 12, 2016 Discharge Disposition: Home Principal Diagnosis: 1. Influenza B 2. Possible pneumonia, MRSA /Gram negative 3. Fever spike with neutropenia 4. Pancytopenia secondary to chemotherapy/Influenza B 5. Anemia requiring blood transfusion Secondary Diagnoses/Problems: 1. Small lung cell carcinoma 2. CKD-III 3. Hypothyroidism 4. DM-2 5. HTN 6. PHT Procedures: Tele monitoring CXR IV antibiotics Cultures Consultations: Hem-onc ID Pending Studies/Follow-Up: Instructions / Follow-Up Instructions / Follow-Up MEDICATION CHANGES: 1 New medication: Cefdinir 300 mg PO BID x 5 more days to complete course of 7 days of antibiotics 2.New medication: Doxycycline 100 mg PO BID x 5 more days to complete course of 7 days of antibiotics 3.New medication: Tamiflu for 3 (today day 3) more days to complete course of 5 days FOLLOW UP 1. With Dr Callie Verdugo on 05/17/16 at 12:45 PM Medication Reconciliation New Medications: Cefdinir (Omnicef) 300 Mg Cap 300 MG PO Q12H for 5 Days, #10 CAP Doxycycline Hyclate (Doxycycline Hyclate) 100 Mg Cap 100 MG PO BID for 5 Days, #10 CAP Oseltamivir Phosphate (Tamiflu) 6 Mg/Ml Glenda 30 MG PO DAILY@2100 for 3 Days, #3 TAB Continued Medications: Albuterol Hfa (Ventolin Hfa) 200 Puffs/92967 Mcg Aers 1 PUFFS INH Q4 PRN for Shortness of Breath, #1 INHALER Aspirin Enteric Coated (Ecotrin Or Generic) 81 Mg Tab 81 MG PO QAM, TAB Carvedilol (Coreg) 25 Mg Tab 50 MG PO BID, TAB Cholecalciferol (Vitamin D3) 1,000 Unit Tab 1 TAB PO QAM Cyanocobalamin (Vitamin B-12) 1,000 Mcg Tab 1000 MCG PO QAM, 0 Refills Docusate Sodium (Docusate Sodium) 100 Mg Cap 100 MG PO BID Fluticasone Prop/Salmeterol (Advair Diskus 250/50 60 Dose) 1 Ea Aerp 1 PUFF INH BID, INHALER Fluticasone Propionate (Nasal) (Flonase Allergy Relief) 50 Mcg/Act Spr 2 SPRAY LATRICE DAILY Furosemide (Lasix) 40 Mg Tab 40 MG PO QAM, TAB Furosemide (Lasix) 40 Mg Tab 20 MG PO QPM, TAB Glipizide (Glucotrol) 10 Mg Tab 10 MG PO QAM, TAB Hydralazine Hcl (Apresoline) 50 Mg Tab 75 MG PO TID, TAB Iron-Vitamin C (Vitron-C) 1 Tab Tab 65-125 MG PO QAM Levothyroxine Sodium (Levothyroxine Sodium) 137 Mcg Tab 137 MCG PO QAM Lorazepam (Ativan) 0.5 Mg Tab 0.5 MG PO Q6H PRN for Anxiety, TAB Magnesium Hydroxide (Milk of Magnesia 400 mg/5Ml) 1 Glenda Glenda 5 ML PO DAILY PRN for Constipation Omeprazole (Prilosec) 40 Mg Cap 40 MG PO QAM, CAP Ondansetron Hcl (Zofran) 8 Mg Tab 8 MG PO TID PRN for Nausea, TAB Oxygen (Oxygen) Gas 2-3 LITERS NA CONTINOUS Polyethylene (Miralax) 17 Gm Pow 17 GM PO DAILY PRN for Constipation Potassium (Potassium) 99 Mg Tab 99 MG PO BID @ NOON AND QPM Prochlorperazine Maleate (Compazine) 10 Mg Tab 10 MG PO Q6H PRN for Nausea, TAB Rosuvastatin Calcium (Crestor) 40 Mg Tab 40 MG PO QAM, TAB Sildenafil Citrate (Pulmonary (Sildenafil) 20 Mg Tab 20 MG PO TID Spironolactone (Aldactone) 25 Mg Tab 25 MG PO QAM, TAB Admission Information HPI (per Admitting provider): This is a 75 year old female with 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 Patient was recently hospitalized at [facility] from Feb 26-Mar 09 for malignant right pleural effusion and underwent pleurectomy and pleurodesis by Dr. Butts. She is followed by Dr. Veto Ortega for oncology. Last chemo treatment 04/30/16. CBC was unremarkable except for anemia (Hg 7.1) on 04/27/16 and was transfused 2 units as outpatient. Patient states yesterday she developed "a severe cold" with rhinorrhea, sore throat, cough productive of clear sputum, chills. Did not notice fever at home. Has poor PO intake for past 3 days. Patient reports a small amount of blood on tissue when she blows her nose but no continued bleeding. Has chronic pain in back and neck. She denies dizziness, REYNAGA, ear ache, aspiration, SOB, chest pain, abdominal pain, N/V/D, dysuria, frequency. Was in [facility] after recent admission but now living at home alone. In the ER patient is hypotensive which is improving with IVF's, febrile to 37.9, pancytopenic, lactate WNL, with possible pneumonia on CXR. Physical Exam (per Admitting): General Appearance: WD/WN, + pertinent finding (acutely ill appearing 75 year old female) Head: normocephalic, atraumatic Eyes: normal inspection, PERRL, EOMI ENT: hearing grossly normal, pharynx normal, + pertinent finding (dry oral mucosa) Neck: supple Respiratory/Chest: lungs clear, normal breath sounds, no respiratory distress Cardiovascular: regular rate, rhythm, normal peripheral pulses Abdomen/GI: normal bowel sounds, non tender, soft Extremities/Musculoskelatal: no calf tenderness, normal capillary refill, no pedal edema Neurologic/Psych: alert, normal mood/affect, oriented x 3, + pertinent finding (grossly nonfocal ) Skin: normal color, warm/dry Hospital Course FEBRILE NEUTROPENIA LIKELY SECONDARY TO INFLUENZA B, POSSIBLE PNEUMONIA Fever 37.9 x 1 spike only ; WBC 1.89, Neutrophils 1.05, Hypotension,No tachycardia, Lactate WNL on presentation -Afebrile since low grade fever spike on admission -IV Vancomycin, Doxycycline, IV Zosyn (Day 3)--> Changed to Omnicef 300 mg PO BID, Doxycycline 100 mg pO BID x 5 more days to complete 7 days course per ID recommendations -S/P IVF -Work up - Blood cx x 2 negative, Urine culture- No significant growth , Speech therapy evaluation requested -ID on board -Neutropenic precautions INFLUENZA B -Continue with Tamiflu (Day 3/5)- 30 mg daily to complete 5 days course -Droplet precautions- okay to discontinue as today day 3 HYPOTENSION- Resolved -Improved with IVF's and now elevated -Restarted home medications- Carvedilol and hydralazine PANCYTOPENIA- Improved -Multifactorial: S/P Chemotherapy, Influenza B -No active bleeding -Case was discussed with Dr Sandoval- No indication for platelet transfusion currently -Monitor counts outpatient ANEMIA -Hg 7.1 on 04/27/16 -> received 2 units as outpatient -> 8.2 on presentation--> 6.2 yesterday--> 9.5 today -Likely secondary to chemotherapy, carcinoma -No signs of active bleeding, no melena/fresh red blood with stools -Transfused 2 units PRBCs on 05/11/16 -Monitor H & H WORSENING RENAL FUNCTION Creat was 0.9 in early Mar 2016 -> running 1.4-1.5 after that-->1.20 today -Diuretics on hold- Ok to restart from tomorrow; Discontinued IVF -Monitor renal function SMALL CELL LUNG CANCER -With malignant right pleural effusion s/p pleurectomy and pleurodesis recently -No evidence of distant metastasis- recent bone scan and MRI brain negative -On etoposide/ carboplatin chemo- last tx 04/30/16 -Follows with Dr. Ortega-Hem/onc consulted CHRONIC RESPIRATORY FAILURE/ COPD Not in exacerbation -Continue home inhalers -PRN nebs -Continue home supplemental O2 (2 L) PULMONARY HYPERTENSION -Hold sildenafil due to hypotension HYPOTHYROIDISM -Continue levothyroxine -TSH-normal DM TYPE 2 Hold glipizide -Insulin sliding scale coverage -A1c was 6.3 on 02/22/16 DVT PROPHYLAXIS -SCD's due to thrombocytopenia CODE STATUS FULL CODE per my discussion with the patient. DISPOSITION Adamant about being discharged today or will leave AMA Overall improving, clinically stable. Ambulating well per RN- Refused PT/OT, repeat CXR or further testing. Will discharge with close follow up appt on 05/17/16 at 12:45 PM with PCP Attempted to call son to discuss about discharge plan, but went into voice message. Total time spent on discharge = 38 minutes This includes examination of the patient, discharge planning, medication reconciliation, and communication with other providers. Discharge Instructions Discharge Goals Goal(s): Diagnostic testing, Therapeutic intervention Activity Recommendations Activity Limitations: resume your previous activity (as tolerated prior to admission) . Instructions / Follow-Up Instructions / Follow-Up MEDICATION CHANGES: 1 New medication: Cefdinir 300 mg PO BID x 5 more days to complete course of 7 days of antibiotics 2.New medication: Doxycycline 100 mg PO BID x 5 more days to complete course of 7 days of antibiotics 3.New medication: Tamiflu for 3 (today day 3) more days to complete course of 5 days FOLLOW UP 1. With Dr Callie Verdugo on 05/17/16 at 12:45 PM Current Hospital Diet Patient's current hospital diet: Diabetes Type 2 Diet, AHA Diet (Heart Healthy) Discharge Diet Recommended Diet: AHA Diet (Heart Healthy), Low Sodium Diet (2gm Na), Diabetes Type 2 Diet Pending Studies Studies pending at discharge: no Laboratory Results Hemoglobin A1c Test 02/22/16 07:20 Range/Units Estimated Average Glucose 134 mg/dl Hemoglobin A1c 6.3 H 4.5-5.6 % Medical Emergencies . Who to Call and When: Medical Emergencies: If at any time you feel your situation is an emergency, please call 911 immediately. . Non-Emergent Contact Non-Emergency issues call your: Primary Care Provider . . "Provider Documentation" section prepared by Renita Ortega. VTE Core Measure Inpt VTE Proph given/why not?: T.E.D. Stockings (re: anemia), SCD's, Contraindicated
[2016-05-12 15:35] VITALS: BP 146/65; PULSE 83; TEMP 37; O2SAT 83
[2016-05-12 15:59] VITALS: O2SAT 91
[2016-05-12 17:40] VITALS: BP 146/65; PULSE 83; TEMP 37; O2SAT 91
--- NOTE | 2016-05-12 19:16 | Hematology/Oncology Prog Note ---
Hematology/Onc Progress Note Date of Service May 12, 2016. Diagnoses 1. Febrile neutropenia in the setting of palliative chemotherapy for Stage IV SCLC 2. Acute on chronic anemia of multiple mechanisms 3. Thrombocytopenia- likely from chemotherapy Subjective Ms. Faustin reports feeling improved today. She is up and sitting in her chair by bed. She continues to have nonproductive cough but denies dyspnea. She has not had chest pain. She reports a good appetite and ate her breakfast; she has not had nausea, bowel issues, melena, hematochezia. She has not had dysuria or hematuria. Review of Systems: Respiratory: + see HPI Abdomen: + see HPI Vital Signs Vital Signs Past 12 Hours Date Time Temp Pulse Resp B/P Pulse Ox O2 Delivery O2 Flow Rate FiO2 05/12/16 15:59 91 Nasal Cannula 3.0 05/12/16 15:35 37.0 83 20 146/65 83 Room Air 05/12/16 12:00 Nasal Cannula 2.0 05/12/16 10:51 36.7 71 18 145/62 98 Nasal Cannula 3.0 05/12/16 09:36 Nasal Cannula 05/12/16 08:10 36.4 67 18 140/59 99 Nasal Cannula 3.0 Physical Exam Constitutional: General Apperance: well-nourished, well-developed Level of Distress: NAD Lungs: Auscuitation: no wheezing, no rhonchi Cardiovascular: Heart Auscultation: RRR Abdomen: Inspection & Palpation: soft, no tenderness, guarding & rebound Extremities: edema (trace) Laboratory 05/12/16 05:35 05/12/16 05:35 Test 05/12/16 05:35 05/12/16 11:45 Red Blood Count 2.96 M/uL (4.2-5.4) Mean Corpuscular Volume 94.6 fL (80-100) Mean Corpuscular Hemoglobin 30.7 pg (25-34) Mean Corpuscular Hemoglobin Concent 32.5 g/dl (32-36) RDW Standard Deviation 64.3 fL (36.4-46.3) RDW Coefficient of Variation 18.7 % (11.5-14.5) Mean Platelet Volume 11.0 fL (7.4-10.4) Anion Gap 8.0 mmol/L (3-11) Est Creatinine Clear Calc Drug Dose 35.3 ml/min Estimated GFR () 50.8 Estimated GFR (Non- 43.9 BUN/Creatinine Ratio 16.6 (10-20) Calcium Level 8.4 mg/dl (8.5-10.1) Bedside Glucose 126 mg/dl (70-90) Assessment & Plan 1. Febrile neutropenia in the setting of palliative chemotherapy for Stage IV SCLC * Likely multifactorial from last chemotherapy administration on 04/30/16 and acute infection with influenza * Influenza B positive on admission- on Tamiflu; ID consulted * Question of right lung PNA- patient on broad spectrum antibiotics with vancomycin, doxycycline, Zosyn-transition now to oral cefdinir and doxycycline * Blood culture x 2 and urine culture negative * Total WBC significantly improved today, no diff today * No G-CSF advised at this time as patient received supportive Neulasta after her last chemotherapy treatment 2. Acute on chronic anemia of multiple mechanisms- likely from anemia of malignancy, chemotherapy related * Appears patient received 3.5 L of NSS since admission and also 125 mL NSS/hr for fluid resuscitation, so component of hemodilution may be present * 2 units PRBC ordered for 05/11/16- appropriate response to transfusion noted in H+H today * Check CBCD daily and transfuse PRBC if Hgb < 7 3. Thrombocytopenia- likely multiple mechanisms including bone marrow suppression from recent chemotherapy and acute infection with influenza * Check CBCD daily; advise PLT tranfusions of PLT < 10K and/or actively bleeding * Improved to high 20K today * I performed a history and physical examination of the patient and discussed the management with Aster Johnson PA-C (05/12/2016). . I reviewed her note and agree with the documented findings and plan of care. Dr. Veto Ortega Hem/Onc
[2016-05-12] MEDS: OSELTAMIVIR PHOSPHATE SUSP 30 MG/5 ML UDP PO SCH (19:39)
[2016-05-13] MEDS ORDERED: VANCOMYCIN TROUGH SCH ×2 (14:30→22:30)
[2016-08-10] MEDS ORDERED: CHOL1000 PO (09:36)
[2016-08-10] MEDS ORDERED: SPIR25TA PO (09:42)
[2016-08-10] MEDS ORDERED: FRS/40 PO ×2 (09:42→17:54)
[2016-08-10] MEDS ORDERED: ADVIN25/60 INH (09:46)
[2016-08-10] MEDS ORDERED: CYAN10005 PO (10:36)
[2016-08-10] MEDS ORDERED: ASPI81TA21 PO (17:15)
[2016-08-10] MEDS ORDERED: ROSU40TA PO (17:54)
[2016-08-10] MEDS ORDERED: OMEP40CA41 PO (17:57)
[2016-08-10] MEDS ORDERED: SILD1TAB39 PO (17:57)
[2016-08-10] MEDS ORDERED: HYDR-4717 PO (17:57)
[2016-08-10] MEDS ORDERED: GLIP10TA9 PO (17:57)
[2016-08-10] MEDS ORDERED: CARV25TA PO (17:57)
[2016-11-19] MEDS ORDERED: LCTX PO (10:35)
[2016-11-19] MEDS ORDERED: KFL250 PO (10:35)
[2016-11-19] MEDS ORDERED: TRAM-10 PO (10:36)
== END 2016-05-12 19:55 | disposition home health service (06) | DRG 177 ==
LOC: ENRESERVDT → ENRESERVTM → C.EDB 16:50 → C.2E 19:40
PROVIDERS: ADMIT Internal Medicine; ATTEND Internal Medicine
DX: J10.08 Influenza due to other identified influenza virus with other specified pneumonia (principal); J15.212 Pneumonia due to Methicillin resistant Staphylococcus aureus; D61.810 Antineoplastic chemotherapy induced pancytopenia; C34.91 Malignant neoplasm of unspecified part of right bronchus or lung; J96.11 Chronic respiratory failure with hypoxia; T45.1X5A Adverse effect of antineoplastic and immunosuppressive drugs, initial encounter; D70.1 Agranulocytosis secondary to cancer chemotherapy; R50.81 Fever presenting with conditions classified elsewhere; I95.9 Hypotension, unspecified; I13.10 Hypertensive heart and chronic kidney disease without heart failure, with stage 1 through stage 4 chronic kidney disease, or unspecified chronic kidney disease; E11.22 Type 2 diabetes mellitus with diabetic chronic kidney disease; N18.3 Chronic kidney disease, stage 3 (moderate); J44.9 Chronic obstructive pulmonary disease, unspecified; E03.9 Hypothyroidism, unspecified; I27.2 Other secondary pulmonary hypertension; Z87.891 Personal history of nicotine dependence; Z79.51 Long term (current) use of inhaled steroids; Z99.81 Dependence on supplemental oxygen; Z79.82 Long term (current) use of aspirin; Z79.84 Long term (current) use of oral hypoglycemic drugs; Z79.899 Other long term (current) drug therapy

== ENCOUNTER 2016-05-13 11:52 | Observation (INO) | payer OTHER ==
[~2016-05-13] VITALS: Ht 147.3 cm; Wt 73.4 kg
[~2016-05-13 11:52] MED LIST changes: -ACET-1311 PO; -BISA10SU38 PR; +CEFD300C2 PO; +CLC100 PO; -DOCU100C31 PO; +DXY100 PO; -FLNIN/ NAE; -GUAI1TAB75 PO; -IPRASOL4 INH; +MAGNSUS73 PO; -MOMLX PO; -NVLG SQ; +ONDA8TAB12 PO; -POLY335019 PO; -POTA20TA16 PO; +POTA99TA PO; -ROSU20TA PO; -SENN-61 PO; -SERT1TAB88 PO; -SODIENE PR; +TMFUDL30 PO; -TRAM-10 PO; -[UNRECOGNIZED DRUG - CODE] PO
--- NOTE | 2016-05-13 13:02 | DIAGNOSTIC IMAGING REPORT ---
CHEST ONE VIEW PORTABLE CLINICAL HISTORY: CHEST PAIN dyspnea COMPARISON STUDY: 05/10/2016 FINDINGS: Central catheter ends. Cava. Chronic fullness of the hilar regions. Chronic pleural reactive change right base. Mild pleural change right apex is unaltered from the prior exam. IMPRESSION: Chronic change. No acute process. Electronically signed by: Lenny Bowser M.D. 05/13/2016 1:00 PM Dictated Date/Time: 05/13/2016 12:59 PM
[2016-05-13 13:25] LABS: HEMATOCRIT 30.6 % (37-47); MEAN CELL VOLUME 96.2 fL (80-100); MEAN CORPUSCULAR HEMOGLOBIN 31.1 pg (25-34); MEAN CORPUSCULAR HGB CONC 32.4 g/dl (32-36); RED BLOOD COUNT 3.18 M/uL (4.2-5.4); WHITE BLOOD COUNT 4.56 K/uL (4.8-10.8)
[2016-05-13 13:26] LABS: MEAN PLATELET VOLUME 8.7 fL (7.4-10.4); PLATELET COUNT 33 K/uL (130-400)
[2016-05-13 13:43] LABS: BASO % 0.4 %; BASO ABS # 0.02 K/uL (0-0.2); COMPLETE YES; EOS % 0.2 %; IG% 0.9 %; LYMPH ABS # 1.05 K/uL (1.2-3.4); MONO % 9.2 %; NEUT % 66.3 %; TOXIC GRANULATION 1+
[2016-05-13 13:46] LABS: BLOOD UREA NITROGEN 17 mg/dl (7-18); BUN/CREATININE RATIO 13.8 (10-20); CARBON DIOXIDE 22 mmol/L (21-32); CHLORIDE 116 mmol/L (98-107); GLUCOSE 111 mg/dl (70-99); POTASSIUM 4.4 mmol/L (3.5-5.1); SODIUM 145 mmol/L (136-145)
--- NOTE | 2016-05-13 13:48 | DIAGNOSTIC IMAGING REPORT ---
CT OF THE HEAD WITHOUT CONTRAST CLINICAL HISTORY: Fall. Headache. Forehead bruising. COMPARISON STUDY: Head CT September 16, 2011 and MRI the brain February 28, 2016. CT DOSE: 1082.90 mGycm TECHNIQUE: Helical axial images of the head were obtained without IV contrast. Automated exposure control was utilized for the study. FINDINGS: No acute intracranial hemorrhage, midline shift or mass effect is present. Ventricular system is unremarkable. Basilar cisterns are patent. There are no extra axial collections. A 1.7 x 0.4 cm hyperdensity along the falx contains a calcification. This is unchanged and represents a meningioma. No calvarial fracture is identified. There is a moderate-sized air-fluid level within the left maxillary sinus. This is low attenuation. There is mucosal thickening of the ethmoid sinuses. No calvarial fracture is identified. There is trace fluid within the bilateral mastoid air cells. IMPRESSION: 1. No acute intracranial findings. 2. No calvarial fracture. 3. Left maxillary sinus air-fluid level which is likely infectious/inflammatory and favors acute sinusitis. Electronically signed by: Joon Koehler M.D. 05/13/2016 1:46 PM Dictated Date/Time: 05/13/2016 1:41 PM
[2016-05-13 13:49] LABS: ALKALINE PHOSPHATASE 57 U/L (45-117); ALT/SGPT 24 U/L (12-78); AST/SGOT 22 U/L (15-37)
[2016-05-13] MEDS ORDERED: ONDANSETRON INJ 2 MG/ML 2 ML VIAL IV PRN (14:30)
[2016-05-13] MEDS ORDERED: ACETAMINOPHEN 325 MG TAB PO PRN (14:30)
[2016-05-13] MEDS ORDERED: NITROGLYCERIN 0.4 MG SL PER TAB CHARGE SL PRN (14:30)
[2016-05-13] MEDS ORDERED: NON-FORMULARY MEDICATION (Potassium 99 MG) PO SCH (14:45)
[2016-05-13] MEDS ORDERED: PROMETHAZINE HCL INJ 12.5 MG in SODIUM CHLORIDE 0.9% 50ML 50 ML IV PRN (14:45)
[2016-05-13] MEDS ORDERED: POLYETHYLENE (MIRALAX) 17 GM PACK PO PRN (14:45)
[2016-05-13] MEDS ORDERED: LORAZEPAM 0.5 MG TAB PO PRN (14:45)
[2016-05-13] MEDS ORDERED: MAGNESIUM HYDROXIDE SUSP 30 ML UDC PO PRN (14:45)
[2016-05-13] MEDS ORDERED: PROCHLORPERAZINE MALEATE 10 MG TAB PO PRN (14:45)
[2016-05-13 17:06] VITALS: BP 120/72; PULSE 75; TEMP 36.4; O2SAT 97; BMI 32.9
--- NOTE | 2016-05-13 17:50 | Progress Note ---
Progress Note Date of Service May 13, 2016. Progress Note Patient was seen and evaluated with JIMBO Babcock. Patient re admitted for generalized weakness, SOB episodes which resolved spontaneously. Patient was adamant about leaving yesterday against my recommendations, but as clinically stable, was discharged. Currently denies any SOB, chest pain, cough has improved, no fever, chills, nausea, vomiting, abdominal pain. On exam, AAOX2, no distress, Neck- No accessory muscle use , no JVD, Heart- S1, S2 normal, Lungs- decreased air entry bilaterally, but no wheezing, Ext- No edema. ASSESSMENT / PLAN: GENERALIZED WEAKNESS: Likely physical deconditioning secondary to recent admission (discharged on ) for febrile neutropenia, Influenza B, Possible pneumonia. Patient was adamant about going home, refused repeat CXR, PT/OT and as was clinically stable was discharged home on Omnicef/Doxycycline per ID recommendations. -Comes back with generalized weakness, sob episodes- self resolved, elevated troponin 0.2, EKG- T wave inversion in III, AVF, V2-V4, V5-V6- flattening -PT/OT once stable ELEVATED TROPONIN WITH EKG CHANGES EKG- T wave inversion in III, AVF, V2-V4, V5-V6- flattening - new compared to EKG on 05/10 but had these changes in prior EKGs -No cardiac symptoms -Trend troponin, EKG in AM, Echo ordered -PT/OT once stable INFLUENZA B Recovering from last admission -On tamiflu 30 mg daily (Day 4) -Ok to discontinue droplet precautions RECENT POSSIBLE PNEUMONIA- Recovering, improving symptoms -Had a fever spike with neutropenia during last admission, CXR- ? 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 Ortega-Hem/onc consulted CHRONIC RESPIRATORY FAILURE/ COPD Not in exacerbation -Continue nebs -PRN nebs -Continue home supplemental O2 (2 L) PULMONARY HYPERTENSION -Hold sildenafil HYPOTHYROIDISM -Continue levothyroxine -TSH-normal DM TYPE 2 Hold glipizide -Insulin sliding scale coverage -A1c was 6.3 on 02/22/16 DVT PROPHYLAXIS -SCD's due to thrombocytopenia CODE STATUS FULL CODE per my discussion with the patient. DISPOSITION PT/OT Willing to go to rehab if indicated
--- NOTE | 2016-05-13 17:53 | History and Physical ---
History & Physical Date & Time of Service: May 13, 2016 ~ 1400 Chief Complaint: Shortness Of Breath Primary Care Physician: Dr. Verdugo History of Present Illness 75 year old female who presents to the ER with shortness of breath. Patient was recently admitted to [facility] 05/10 - 05/12 for febrile neutropenia due to influenza A and possible pneumonia. Patient received Zosyn and Vanco while hospitalized and was discharged on Omnicef, Doxycycline, and Tamiflu. Patient reports that almost immediately returning home, she developed shortness of breath which has been progressively getting worse. She reports a moist non productive cough. No fever or chills. She denies chest pain. No lightheadedness, dizziness, diaphoresis, or syncopal events. She has lower extremity edema which she reports has been improving over the past several weeks. She denies abdominal pain, nausea, vomiting, and diarrhea. No urinary symptoms. In the ER, patient is saturating well on her chronic 2L. CXR does not show any acute process. Trop is found to be 0.24 and EKG shows new T-wave inversions laterally and inferiorly. 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 Burnette at [facility] Status: Chronic (2) History of total abdominal hysterectomy Status: Chronic (3) S/p pleurectomy and pleurodesis Status: Chronic (4) S/P thoracentesis Status: Chronic Family History Diabetes mellitus SISTER Heart disease MOTHER Social History Smoking Status: Former Smoker Alcohol Use: none Housing status: lives alone Immunizations History of Influenza Vaccine: Yes Influenza Vaccine Date: Dec 29, 2015 History of Tetanus Vaccine?: Yes Tetanus Immunization Date: Jun 02, 2011 History of Pneumococcal: Yes Pneumococcal Date: June 21, 2014 Multi-Drug Resistant Organisms History of MDRO: No Allergies Coded Allergies: No Known Allergies (Verified , 05/13/16) Home Medications Scheduled Aspirin Enteric Coated (Ecotrin Or Generic), 81 MG PO QAM Carvedilol (Coreg), 50 MG PO BID Cefdinir (Omnicef), 300 MG PO Q12H Cholecalciferol (Vitamin D3), 1 TAB PO QAM Cyanocobalamin (Vitamin B-12), 1,000 MCG PO QAM Docusate Sodium (Docusate Sodium), 100 MG PO BID Doxycycline Hyclate (Doxycycline Hyclate), 100 MG PO BID Fluticasone Prop/Salmeterol (Advair Diskus 250/50 60 Dose), 1 PUFF INH BID Fluticasone Propionate (Nasal) (Flonase Allergy Relief), 2 SPRAY LATRICE DAILY Furosemide (Lasix), 40 MG PO QAM Furosemide (Lasix), 20 MG PO QPM Glipizide (Glucotrol), 10 MG PO QAM Hydralazine Hcl (Apresoline), 75 MG PO TID Iron-Vitamin C (Vitron-C), 65-125 MG PO QAM Levothyroxine Sodium (Levothyroxine Sodium), 137 MCG PO QAM Omeprazole (Prilosec), 40 MG PO QAM Oseltamivir Phosphate (Tamiflu), 30 MG PO DAILY@2100 Oxygen (Oxygen), 2-3 LITERS NA CONTINOUS Potassium (Potassium), 99 MG PO BID @ NOON AND QPM Rosuvastatin Calcium (Crestor), 40 MG PO QAM Sildenafil Citrate (Pulmonary (Sildenafil), 20 MG PO TID Spironolactone (Aldactone), 25 MG PO QAM Scheduled PRN Albuterol Hfa (Ventolin Hfa), 1 PUFFS INH Q4 PRN for Shortness of Breath Lorazepam (Ativan), 0.5 MG PO Q6H PRN for Anxiety Magnesium Hydroxide (Milk of Magnesia 400 mg/5Ml), 5 ML PO DAILY PRN for Constipation Ondansetron Hcl (Zofran), 8 MG PO TID PRN for Nausea Polyethylene (Miralax), 17 GM PO DAILY PRN for Constipation Prochlorperazine Maleate (Compazine), 10 MG PO Q6H PRN for Nausea Review of Systems 10 point review of systems was completed with the pertinent positives and negatives noted per the HPI Physical Exam Vital Signs Date Time Temp Pulse Resp B/P Pulse Ox O2 Delivery O2 Flow Rate FiO2 05/13/16 16:26 74 22 109/62 95 Room Air 05/13/16 13:00 69 28 117/61 100 Nasal Cannula 05/13/16 12:25 68 05/13/16 11:57 36.6 103 22 98/61 91 Nasal Cannula 3.0 General Appearance: no apparent distress Head: normocephalic, + evidence of trama (bruising in various stages of healing ) Eyes: normal inspection ENT: hearing grossly normal Neck: supple, no JVD Respiratory/Chest: no respiratory distress, + decreased breath sounds Cardiovascular: regular rate, rhythm, + pertinent finding (+1 pitting edema BLLE) Abdomen/GI: normal bowel sounds, non tender, soft Extremities/Musculoskelatal: normal inspection, no calf tenderness Neurologic/Psych: no motor/sensory deficits, alert, normal mood/affect, oriented x 3 Skin: normal color, warm/dry Diagnostics Laboratory Results Results Past 24 Hours Test 05/13/16 13:12 05/13/16 13:15 Range/Units White Blood Count 4.56 4.8-10.8 K/uL Red Blood Count 3.18 4.2-5.4 M/uL Hemoglobin 9.9 12.0-16.0 g/dL Hematocrit 30.6 37-47 % Mean Corpuscular Volume 96.2 80-100 fL Mean Corpuscular Hemoglobin 31.1 25-34 pg Mean Corpuscular Hemoglobin Concent 32.4 32-36 g/dl Platelet Count 33 130-400 K/uL Mean Platelet Volume 8.7 7.4-10.4 fL Neutrophils (%) (Auto) 66.3 % Lymphocytes (%) (Auto) 23.0 % Monocytes (%) (Auto) 9.2 % Eosinophils (%) (Auto) 0.2 % Basophils (%) (Auto) 0.4 % Neutrophils # (Auto) 3.02 1.4-6.5 K/uL Lymphocytes # (Auto) 1.05 1.2-3.4 K/uL Monocytes # (Auto) 0.42 0.11-0.59 K/uL Eosinophils # (Auto) 0.01 0-0.5 K/uL Basophils # (Auto) 0.02 0-0.2 K/uL RDW Standard Deviation 64.7 36.4-46.3 fL RDW Coefficient of Variation 18.5 11.5-14.5 % Immature Granulocyte % (Auto) 0.9 % Immature Granulocyte # (Auto) 0.04 0.00-0.02 K/uL Toxic Granulation 1+ Sodium Level 145 136-145 mmol/L Potassium Level 4.4 3.5-5.1 mmol/L Chloride Level 116 98-107 mmol/L Carbon Dioxide Level 22 21-32 mmol/L Anion Gap 7.0 3-11 mmol/L Blood Urea Nitrogen 17 7-18 mg/dl Creatinine 1.20 0.60-1.20 mg/dl Est Creatinine Clear Calc Drug Dose 33.3 ml/min Estimated GFR () 50.8 Estimated GFR (Non- 43.9 BUN/Creatinine Ratio 13.8 10-20 Random Glucose 111 70-99 mg/dl Calcium Level 9.0 8.5-10.1 mg/dl Total Bilirubin 0.3 0.2-1 mg/dl Direct Bilirubin < 0.1 0-0.2 mg/dl Aspartate Amino Transf (AST/SGOT) 22 15-37 U/L Alanine Aminotransferase (ALT/SGPT) 24 12-78 U/L Alkaline Phosphatase 57 45-117 U/L Total Protein 5.8 6.4-8.2 gm/dl Albumin 2.3 3.4-5.0 gm/dl Lipase 248 73-393 U/L Bedside Troponin I 0.240 0-0.045 ng/ml Diagnostic Radiology CT HEAD IMPRESSION: 1. No acute intracranial findings. 2. No calvarial fracture. 3. Left maxillary sinus air-fluid level which is likely infectious/inflammatory and favors acute sinusitis. CXR IMPRESSION: Chronic change. No acute process. Impression Assessment and Plan SHORTNESS OF BREATH, ELEVATED TROPONIN, POSSIBLE MILD COPD EXACERBATION CHRONIC RESPIRATORY FAILURE, PULMONARY HTN - admit to tele - patient discharged from [facility] yesterday for febrile neutropenia due to influenza A and possible pneumonia - discharged on Cefdinir, Doxy, and Tamiflu; will continue all 3 to complete courses - patient was very adamant to be discharged yesterday without home services - suspect shortness of breath is multifactorial due to underlying lung CA, COPD , pulmonary HTN, and recent pulmonary infection; currently saturating well on chronic 2L; for now, will complete antibiotics as above and start around the clock nebs - hold on steroids for now; holding sildenafil in the event patient needs nitro for chest pain - no reports of chest pain - however initial trop found to be 0.240 and EKG shows T-wave inversions laterally and inferiorly - will continue to trend cardiac enzymes and check resting echo - continue ASA, beta atif, and statin PROLONGED QTC - monitor EKG daily, avoid QTC prolonging agents SMALL CELL LUNG CANCER - follows with Dr. Ortega - on chemo PANCYTOPENIA - stable and improved from recent admission - due to chemo HYPOTHYROIDISM - continue levothyroxine DM - hold oral agents and utilize SSI while hospitalized HTN - BP controlled, continue carvedilol and hydralazine CHRONIC LOWER EXTREMITY EDEMA - continue diuretics DVT PROPHYLAXIS - SCDs due to anemia/thrombocytopenia CODE STATUS - Patient is a full code as per my discussion with her. DISPO - The patient will be placed as observation status for now until further work up is complete. VTE Prophylaxis VTE Risk Assessment Done? Y/N: Yes Risk Level: Moderate
[2016-05-13] MEDS: CEFDINIR 300 MG CAP PO SCH (18:10)
[2016-05-13 19:33] VITALS: PULSE 68; O2SAT 98
[2016-05-13] MEDS: ALBUT/IPRATROP 3MG/0.5MG NEB 3 ML VIAL INH SCH (19:33)
[2016-05-13] MEDS: CARVEDILOL 25 MG TAB PO SCH (19:37)
[2016-05-13] MEDS: FUROSEMIDE 20 MG TAB PO SCH (19:37)
[2016-05-13] MEDS: DOXYCYCLINE HYCLATE 100 MG CAP PO SCH (19:38)
[2016-05-13] MEDS: DOCUSATE SODIUM 100 MG CAP PO SCH (19:38)
[2016-05-13] MEDS: OSELTAMIVIR PHOSPHATE SUSP 30 MG/5 ML UDP PO SCH (19:38)
[2016-05-13 19:39] VITALS: BP 111/72; PULSE 70; TEMP 36.8; O2SAT 100
[2016-05-13] MEDS: FLUTICASONE/SALMETEROL 250/50 (ADVAIR) 14 PUFF/1 INHALER INH SCH (19:41)
[2016-05-13] MEDS ORDERED: SILDENAFIL CITRATE 20 MG TAB PO SCH (21:00)
[2016-05-13 23:46] VITALS: BP 96/60; PULSE 66; TEMP 36.8; O2SAT 99
[2016-05-14] VITALS (9 sets, daily range): BP systolic 87–112; BP diastolic 57–70; PULSE 62–78; TEMP 36.5–36.9; O2SAT 95–100; Ht 147.3 cm; Wt 73.4 kg
[2016-05-14] MEDS: ALBUT/IPRATROP 3MG/0.5MG NEB 3 ML VIAL INH SCH ×4 (02:26→19:24)
[2016-05-14] MEDS: LEVOTHYROXINE 137 MCG TAB PO SCH (06:07)
[2016-05-14] MEDS: CEFDINIR 300 MG CAP PO SCH ×2 (06:07→18:02)
[2016-05-14 06:41] LABS: HEMATOCRIT 29.1 % (37-47); MEAN CELL VOLUME 95.4 fL (80-100); MEAN CORPUSCULAR HEMOGLOBIN 31.1 pg (25-34); MEAN CORPUSCULAR HGB CONC 32.6 g/dl (32-36); RED BLOOD COUNT 3.05 M/uL (4.2-5.4); WHITE BLOOD COUNT 3.95 K/uL (4.8-10.8)
[2016-05-14 06:50] LABS: MEAN PLATELET VOLUME 9.6 fL (7.4-10.4); PLATELET COUNT 41 K/uL (130-400)
[2016-05-14 07:11] LABS: BUN/CREATININE RATIO 11.6 (10-20); CALCIUM 8.8 mg/dl (8.5-10.1); CREATININE 1.2 mg/dl (0.60-1.20); POTASSIUM 3.8 mmol/L (3.5-5.1)
[2016-05-14] MEDS: FLUTICASONE/SALMETEROL 250/50 (ADVAIR) 14 PUFF/1 INHALER INH SCH ×2 (07:54→20:55)
[2016-05-14] MEDS: SPIRONOLACTONE 25 MG TAB PO SCH (07:55)
[2016-05-14] MEDS: FLUTICASONE PROPIONATE NA SPR 16 GM BTL NAE SCH (07:55)
[2016-05-14] MEDS: CARVEDILOL 25 MG TAB PO SCH ×2 (07:55→20:56)
[2016-05-14] MEDS: FUROSEMIDE 40 MG TAB PO SCH (07:56)
[2016-05-14] MEDS: ASPIRIN 81 MG ECTAB PO SCH (07:56)
[2016-05-14] MEDS: CHOLECALCIFEROL 1000 INTER.UNIT TAB PO SCH (07:56)
[2016-05-14] MEDS: DOCUSATE SODIUM 100 MG CAP PO SCH ×2 (07:57→20:53)
[2016-05-14] MEDS: DOXYCYCLINE HYCLATE 100 MG CAP PO SCH ×2 (07:57→20:55)
[2016-05-14] MEDS: PANTOprazole SOD 40 MG TAB PO SCH (07:57)
[2016-05-14] MEDS: CYANOCOBALAMIN 500 MCG TAB (VIT B-12) PO SCH (07:58)
[2016-05-14] MEDS: ROSUVASTATIN CALCIUM 20 MG TAB PO SCH (07:58)
--- NOTE | 2016-05-14 11:04 | Progress Note ---
Internal Med Progress Note Date of Service: May 14, 2016. Provider Documentation: SUBJECTIVE: Patient is doing better Chronic SOB, cough has improved since last admission No chest pain, fever, chills, nausea, vomiting, abdominal pain OBJECTIVE: Vital Signs-as noted below Exam: General-AAOX3, no distress Neck-Supple, No JVD Lungs-AEBE decreased, no wheezing, crackles Heart-S1, S2 normal Abdomen-Soft, non tender, non distended, BS present Extremities-Edema bilaterally Neuro-Grossly, no focal deficit Lab data as noted below. ASSESSMENT & PLAN: GENERALIZED WEAKNESS: Likely physical deconditioning secondary to recent admission (discharged on ) for febrile neutropenia, Influenza B, Possible pneumonia. Patient was adamant about going home, refused repeat CXR, PT/OT and as was clinically stable was discharged home on Omnicef/Doxycycline per ID recommendations. -Comes back with generalized weakness, sob episodes- self resolved, elevated troponin 0.2, EKG- T wave inversion in III, AVF, V2-V4, V5-V6- flattening -PT/OT once stable ELEVATED TROPONIN WITH EKG CHANGES EKG- T wave inversion in III, AVF, V2-V4, V5-V6- flattening - new compared to EKG on 05/10 but had these changes in prior EKGs --> changed to non specific T wave abnormalities -No cardiac symptoms -Trend troponin- trending down, Echo ordered- Follow up -PT/OT INFLUENZA B Recovering from last admission -On tamiflu 30 mg daily (Day 5) -Ok to discontinue droplet precautions RECENT POSSIBLE PNEUMONIA- Recovering, improving symptoms -Had a fever spike with neutropenia during last admission, CXR- ? infiltrate, refused repeat CXR but today in ED- no acute changes, chronic changes only -On Omnicef/Doxycycline (Day 5/7) from prior admission -No worsening of symptoms PANCYTOPENIA- Improving -Multifactorial: S/P Chemotherapy, Influenza B -No active bleeding -Monitor counts ANEMIA -Hb stable -Likely secondary to chemotherapy, carcinoma -No signs of active bleeding, no melena/fresh red blood with stools -Transfused 2 units PRBCs on 05/11/16 (last admission) -Monitor H & H CKD-III Baseline range has gone up to 1.2-1.4 -Hold diuretics -Monitor SMALL CELL LUNG CANCER -With malignant right pleural effusion s/p pleurectomy and pleurodesis recently -No evidence of distant metastasis- recent bone scan and MRI brain negative -On etoposide/ carboplatin chemo- last tx 04/30/16 -Follows with Dr. Ortega-Hem/onc consulted CHRONIC RESPIRATORY FAILURE/ COPD Not in exacerbation -Continue nebs -PRN nebs -Continue home supplemental O2 (2 L) PULMONARY HYPERTENSION -Hold sildenafil HYPOTHYROIDISM -Continue levothyroxine -TSH-normal DM TYPE 2 Hold glipizide -Insulin sliding scale coverage -A1c was 6.3 on 02/22/16 DVT PROPHYLAXIS -SCD's due to thrombocytopenia CODE STATUS FULL CODE per my discussion with the patient. DISPOSITION PT/OT - follow up -Possible discharge in AM Vital Signs: Date Time Temp Pulse Resp B/P Pulse Ox O2 Delivery O2 Flow Rate FiO2 05/14/16 08:00 Nasal Cannula 2.0 05/14/16 07:19 36.8 64 16 101/68 100 Nasal Cannula 3.0 05/14/16 04:02 Nasal Cannula 2.0 05/14/16 03:45 36.5 62 18 111/69 96 Nasal Cannula 2.0 05/14/16 00:04 Nasal Cannula 2.0 05/13/16 23:46 36.8 66 18 96/60 99 Nasal Cannula 2.0 05/13/16 20:00 Nasal Cannula 3.0 05/13/16 19:39 36.8 70 18 111/72 100 Nasal Cannula 3.0 05/13/16 19:33 68 14 98 Nasal Cannula 3.0 05/13/16 17:06 36.4 75 14 120/72 97 Nasal Cannula 3.0 05/13/16 16:26 74 22 109/62 95 Room Air 05/13/16 13:00 69 28 117/61 100 Nasal Cannula 05/13/16 12:25 68 05/13/16 11:57 36.6 103 22 98/61 91 Nasal Cannula 3.0 Lab Results: Results Past 24 Hours Test 05/13/16 13:12 05/13/16 13:15 05/13/16 17:35 05/13/16 19:00 Range/Units White Blood Count 4.56 4.8-10.8 K/uL Red Blood Count 3.18 4.2-5.4 M/uL Hemoglobin 9.9 12.0-16.0 g/dL Hematocrit 30.6 37-47 % Mean Corpuscular Volume 96.2 80-100 fL Mean Corpuscular Hemoglobin 31.1 25-34 pg Mean Corpuscular Hemoglobin Concent 32.4 32-36 g/dl Platelet Count 33 130-400 K/uL Mean Platelet Volume 8.7 7.4-10.4 fL Neutrophils (%) (Auto) 66.3 % Lymphocytes (%) (Auto) 23.0 % Monocytes (%) (Auto) 9.2 % Eosinophils (%) (Auto) 0.2 % Basophils (%) (Auto) 0.4 % Neutrophils # (Auto) 3.02 1.4-6.5 K/uL Lymphocytes # (Auto) 1.05 1.2-3.4 K/uL Monocytes # (Auto) 0.42 0.11-0.59 K/uL Eosinophils # (Auto) 0.01 0-0.5 K/uL Basophils # (Auto) 0.02 0-0.2 K/uL RDW Standard Deviation 64.7 36.4-46.3 fL RDW Coefficient of Variation 18.5 11.5-14.5 % Immature Granulocyte % (Auto) 0.9 % Immature Granulocyte # (Auto) 0.04 0.00-0.02 K/uL Toxic Granulation 1+ Sodium Level 145 136-145 mmol/L Potassium Level 4.4 3.5-5.1 mmol/L Chloride Level 116 98-107 mmol/L Carbon Dioxide Level 22 21-32 mmol/L Anion Gap 7.0 3-11 mmol/L Blood Urea Nitrogen 17 7-18 mg/dl Creatinine 1.20 0.60-1.20 mg/dl Est Creatinine Clear Calc Drug Dose 33.3 ml/min Estimated GFR () 50.8 Estimated GFR (Non- 43.9 BUN/Creatinine Ratio 13.8 10-20 Random Glucose 111 70-99 mg/dl Calcium Level 9.0 8.5-10.1 mg/dl Total Bilirubin 0.3 0.2-1 mg/dl Direct Bilirubin < 0.1 0-0.2 mg/dl Aspartate Amino Transf (AST/SGOT) 22 15-37 U/L Alanine Aminotransferase (ALT/SGPT) 24 12-78 U/L Alkaline Phosphatase 57 45-117 U/L Total Protein 5.8 6.4-8.2 gm/dl Albumin 2.3 3.4-5.0 gm/dl Lipase 248 73-393 U/L Bedside Troponin I 0.240 0-0.045 ng/ml Bedside Glucose 85 70-90 mg/dl Creatine Kinase MB Ratio 0-3.0 Test 05/13/16 19:08 05/13/16 20:58 05/14/16 01:00 05/14/16 06:18 Range/Units Creatine Kinase MB 5.4 4.0 0.5-3.6 ng/ml Troponin I 0.177 0.122 0-0.045 ng/ml Bedside Glucose 142 70-90 mg/dl Creatine Kinase MB Ratio 0-3.0 White Blood Count 3.95 4.8-10.8 K/uL Red Blood Count 3.05 4.2-5.4 M/uL Hemoglobin 9.5 12.0-16.0 g/dL Hematocrit 29.1 37-47 % Mean Corpuscular Volume 95.4 80-100 fL Mean Corpuscular Hemoglobin 31.1 25-34 pg Mean Corpuscular Hemoglobin Concent 32.6 32-36 g/dl RDW Standard Deviation 63.5 36.4-46.3 fL RDW Coefficient of Variation 18.4 11.5-14.5 % Platelet Count 41 130-400 K/uL Mean Platelet Volume 9.6 7.4-10.4 fL Sodium Level 144 136-145 mmol/L Potassium Level 3.8 3.5-5.1 mmol/L Chloride Level 113 98-107 mmol/L Carbon Dioxide Level 24 21-32 mmol/L Anion Gap 7.0 3-11 mmol/L Blood Urea Nitrogen 14 7-18 mg/dl Creatinine 1.20 0.60-1.20 mg/dl Est Creatinine Clear Calc Drug Dose 33.6 ml/min Estimated GFR () 50.8 Estimated GFR (Non- 43.9 BUN/Creatinine Ratio 11.6 10-20 Random Glucose 66 70-99 mg/dl Calcium Level 8.8 8.5-10.1 mg/dl Test 05/14/16 06:38 Range/Units Bedside Glucose 70 70-90 mg/dl
--- NOTE | 2016-05-14 11:04 | EMERGENCY ROOM VISIT NOTE ---
History Report prepared by Lazaro: Kita Garcia Under the Supervision of: Dr. Blake Medina M.D. First contact with patient: 12:28 Chief Complaint: FLU LIKE SX Stated Complaint: FLU LIKE SX History of Present Illness The patient is a 75 year old female who presents to the Emergency Room with complaints of persistent SOB starting last night. The patient has lung cancer and was in the hospital for flu recently. She was discharged yesterday and felt well on the morning but last night her flu symptoms began to return. She reports a productive cough. She denies any headache, chest pain, nausea, or vomiting. She reports that she has been adequately hydrating. She fell and injured her head 2-3 weeks ago at which time a CT scan was not done. A fall since then. No bleeding acutely. She has a history of COPD and diabetes. She normally wears 2 L of oxygen at home, but recently she has been wearing 3 L. She is on oral antibiotics. Her last chemotherapy was 3 weeks ago and she is schedule to go back soon. No GI symptoms. Source of History: patient, family Onset: last night Position: other (global) Quality: other (SOB) Timing: other (persistent) Associated Symptoms: + cough (productive), No chest pain, No headache, No nausea, No vomiting Review of Systems See HPI for pertinent positives & negatives. A total of 10 systems reviewed and were otherwise negative. 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 Nurse's notes were reviewed and I agree with. Family History Diabetes mellitus Heart disease Hypertension Social History Smoking Status: Former Smoker Alcohol Use: none Drug Use: none Marital Status: Housing Status: lives alone Occupation Status: unemployed Current/Historical Medications Scheduled Aspirin Enteric Coated (Ecotrin Or Generic), 81 MG PO QAM Carvedilol (Coreg), 50 MG PO BID Cefdinir (Omnicef), 300 MG PO Q12H Cholecalciferol (Vitamin D3), 1 TAB PO QAM Cyanocobalamin (Vitamin B-12), 1,000 MCG PO QAM Docusate Sodium (Docusate Sodium), 100 MG PO BID Doxycycline Hyclate (Doxycycline Hyclate), 100 MG PO BID Fluticasone Prop/Salmeterol (Advair Diskus 250/50 60 Dose), 1 PUFF INH BID Fluticasone Propionate (Nasal) (Flonase Allergy Relief), 2 SPRAY LATRICE DAILY Furosemide (Lasix), 40 MG PO QAM Furosemide (Lasix), 20 MG PO QPM Glipizide (Glucotrol), 10 MG PO QAM Hydralazine Hcl (Apresoline), 75 MG PO TID Iron-Vitamin C (Vitron-C), 65-125 MG PO QAM Levothyroxine Sodium (Levothyroxine Sodium), 137 MCG PO QAM Omeprazole (Prilosec), 40 MG PO QAM Oseltamivir Phosphate (Tamiflu), 30 MG PO DAILY@2100 Oxygen (Oxygen), 2-3 LITERS NA CONTINOUS Potassium (Potassium), 99 MG PO BID @ NOON AND QPM Rosuvastatin Calcium (Crestor), 40 MG PO QAM Sildenafil Citrate (Pulmonary (Sildenafil), 20 MG PO TID Spironolactone (Aldactone), 25 MG PO QAM Scheduled PRN Albuterol Hfa (Ventolin Hfa), 1 PUFFS INH Q4 PRN for Shortness of Breath Lorazepam (Ativan), 0.5 MG PO Q6H PRN for Anxiety Magnesium Hydroxide (Milk of Magnesia 400 mg/5Ml), 5 ML PO DAILY PRN for Constipation Ondansetron Hcl (Zofran), 8 MG PO TID PRN for Nausea Polyethylene (Miralax), 17 GM PO DAILY PRN for Constipation Prochlorperazine Maleate (Compazine), 10 MG PO Q6H PRN for Nausea Allergies Coded Allergies: No Known Allergies (Verified , 05/13/16) Physical Exam Vital Signs Date Time Temp Pulse Resp B/P Pulse Ox O2 Delivery O2 Flow Rate FiO2 05/13/16 13:00 69 28 117/61 100 Nasal Cannula 05/13/16 12:25 68 05/13/16 11:57 36.6 103 22 98/61 91 Nasal Cannula 3.0 Physical Exam General: Chronically ill-appearing older female. Well developed well nourished in no acute distress, breathing comfortably on room air. Normal speech HEENT: Normal cephalic. Large old bruise involving most of scalp, yellowish in color, nontender. Sclerae anicteric. Pupils are equal round and reactive to light. Extraocular movements are intact. Oropharynx is pink with moist mucous membranes. No swelling of the mouth lips or tongue. Neck: Supple with a midline trachea. No meningeal signs or stiffness, no JVD or bruits. No Stridor. Chest: Crackles in bases bilaterally. No wheezes or rhonchi. No increased work of breathing. Wearing baseline supplemental nasal cannula. A port in right chest. Heart: regular rate and rhythm. Abdomen: Soft nontender, nondistended without rebound guarding or rigidity. Extremities: No cyanosis clubbing or edema. No calf tenderness or assymetry Spine/Back. Non tender to palpation. No CVA tenderness Skin: Good turgor without rashes. Neurologic exam: Cranial nerves two through 12 are intact. Motor and sensation are intact and symmetrical throughout. Medical Decision & Procedures ER Provider Diagnostic Interpretation: X-ray results as stated below per interpretation by me and the radiologist. Radiology results as stated below per my review and radiologist interpretation: CHEST ONE VIEW PORTABLE CLINICAL HISTORY: CHEST PAIN dyspnea COMPARISON STUDY: 05/10/2016 FINDINGS: Central catheter ends. Cava. Chronic fullness of the hilar regions. Chronic pleural reactive change right base. Mild pleural change right apex is unaltered from the prior exam. IMPRESSION: Chronic change. No acute process. Electronically signed by: Lenny Bowser M.D. 05/13/2016 1:00 PM Dictated Date/Time: 05/13/2016 12:[address] OF THE HEAD WITHOUT CONTRAST CLINICAL HISTORY: Fall. Headache. Forehead bruising. COMPARISON STUDY: Head CT September 16, 2011 and MRI the brain February 28, 2016. CT DOSE: 1082.90 mGycm TECHNIQUE: Helical axial images of the head were obtained without IV contrast. Automated exposure control was utilized for the study. FINDINGS: No acute intracranial hemorrhage, midline shift or mass effect is present. Ventricular system is unremarkable. Basilar cisterns are patent. There are no extra axial collections. A 1.7 x 0.4 cm hyperdensity along the falx contains a calcification. This is unchanged and represents a meningioma. No calvarial fracture is identified. There is a moderate-sized air-fluid level within the left maxillary sinus. This is low attenuation. There is mucosal thickening of the ethmoid sinuses. No calvarial fracture is identified. There is trace fluid within the bilateral mastoid air cells. IMPRESSION: 1. No acute intracranial findings. 2. No calvarial fracture. 3. Left maxillary sinus air-fluid level which is likely infectious/inflammatory and favors acute sinusitis. Electronically signed by: Joon Koehler M.D. 05/13/2016 1:46 PM Dictated Date/Time: 05/13/2016 1:41 PM Laboratory Results Test 05/13/16 13:12 05/13/16 13:15 Immature Granulocyte % (Auto) 0.9 % White Blood Count 4.56 K/uL (4.8-10.8) Red Blood Count 3.18 M/uL (4.2-5.4) Hemoglobin 9.9 g/dL (12.0-16.0) Hematocrit 30.6 % (37-47) Mean Corpuscular Volume 96.2 fL (80-100) Mean Corpuscular Hemoglobin 31.1 pg (25-34) Mean Corpuscular Hemoglobin Concent 32.4 g/dl (32-36) Platelet Count 33 K/uL (130-400) Mean Platelet Volume 8.7 fL (7.4-10.4) Neutrophils (%) (Auto) 66.3 % Lymphocytes (%) (Auto) 23.0 % Monocytes (%) (Auto) 9.2 % Eosinophils (%) (Auto) 0.2 % Basophils (%) (Auto) 0.4 % Neutrophils # (Auto) 3.02 K/uL (1.4-6.5) Lymphocytes # (Auto) 1.05 K/uL (1.2-3.4) Monocytes # (Auto) 0.42 K/uL (0.11-0.59) Eosinophils # (Auto) 0.01 K/uL (0-0.5) Basophils # (Auto) 0.02 K/uL (0-0.2) Immature Granulocyte # (Auto) 0.04 K/uL (0.00-0.02) Toxic Granulation 1+ Total Bilirubin 0.3 mg/dl (0.2-1) Direct Bilirubin < 0.1 mg/dl (0-0.2) Aspartate Amino Transf (AST/SGOT) 22 U/L (15-37) Alanine Aminotransferase (ALT/SGPT) 24 U/L (12-78) Alkaline Phosphatase 57 U/L (45-117) Total Protein 5.8 gm/dl (6.4-8.2) Albumin 2.3 gm/dl (3.4-5.0) Lipase 248 U/L (73-393) Bedside Troponin I 0.240 ng/ml (0-0.045) Laboratory studies as stated above per my review. ECG Indication: SOB/dyspnea Rate (beats per minute): 70 Rhythm: normal sinus Findings: nonspecific-ST abn, RBBB ED Course 1232: Past medical records reviewed. The patient was evaluated in room C12, and a complete history and physical examination were performed. 1351: Upon reevaluation, the patient is resting comfortably. I discussed the results and treatment plan with the patient. She verbalized agreement of the treatment plan. The patient will be evaluated for further management. 1358: I discussed the patient's case with ISATU Groves [facility] hospitalist group. The patient will be evaluated for further management. Medical Decision Differential diagnoses: influenza, sepsis, hematologic abnormality, intracranial hemorrhage, electrolyte or metabolic abnormality. This patient comes in as described above. She does have ibis complex medical history and was discharged from hospital yesterday. She was feeling okay then but got worse and now she feels basically the same way she did when she was admitted several days ago. She is treated being treated for lung cancer and has had problems with pancytopenia along the way. She also has confirmed influenza. They're also treating her for presumed pneumonia on a chest x-ray. She feels generalized weak and flulike with a cough. Denies chest pain. IV access was established by her a port. Chest x-ray, EKG,, and multiple blood tests was obtained. Chest x-ray today does not show any definite infiltrate. Her EKG does not show any acute ischemic changes however troponin is mildly elevated. Her symptoms do not suggest cardiac disease however she has nonspecific weakness and I cannot 100% rule that in particular with the troponin being in the garcía zone. She has no acute electrolyte or metabolic abnormalities. I did a CAT scan of her head and there is no acute intracranial process. Her CBC actually looks better than her baseline her platelets seem to be coming up. She feels too weak to go home. I do think she is to be admitted for further treatment and evaluation. [facility] her for these measures. Consults Time Called: [phone] Consulting Physician[facility] Returned Call: [phone] I discussed the patient's case with her. The patient will be evaluated for further management. Impression Primary Impression: SOB (shortness of breath) Additional Impressions: Weakness Elevated troponin Scribe Attestation The scribe's documentation has been prepared under my direction and personally reviewed by me in its entirety. I confirm that the note above accurately reflects all work, treatment, procedures, and medical decision making performed by me. Departure Information Dispostion Being Evaluated By Hospitalist Referrals No Doctor, Assigned (PCP) Patient Instructions My [facility] Problem Qualifiers
--- NOTE | 2016-05-14 17:56 | ECHOCARDIOGRAM REPORT ---
*NOTICE TO RECEIVING LIBERTARIAN AGENCY This information is strictly Confidential and protected under [place] law. [place] law prohibits you from making any further disclosure of this information unless further disclosure is expressly permitted by the written consent of the person to whom it pertains or is authorized by law. A general authorization for the release of medical or other information is not sufficient for this purpose. Hospital accepts no responsibility if the information is made available to any other person, INCLUDING THE PATIENT. Interpretation Summary * The study was technically adequate. * Compared to prior study, changes are noted. * -- Conclusions -- * Left ventricular systolic function is normal. * Ejection Fraction = 50-55%. * The mid inferior and posterior scott are hypokinetic. * Otherwise normal wall motion. * Mild aortic regurgitation. * There is moderate mitral regurgitation. * There is moderate tricuspid regurgitation. * The estimated systolic PAP is 46mmHg. * Grade I diastolic dysfunction, (abnormal relaxation pattern). Procedure Details * A complete two-dimensional transthoracic echocardiogram was performed (2D, M-mode, Doppler and color flow Doppler). Left Ventricle * The left ventricle is grossly normal size. * There is no thrombus. * There is normal left ventricular wall thickness. * Ejection Fraction = 50-55%. * Left ventricular systolic function is normal. * The mid inferior and posterior scott are hypokinetic. Otherwise normal wall motion. Right Ventricle * The right ventricular cavity size is normal (basal dimension <4.2 cm in right ventricular apical 4-chamber view). * The right ventricular systolic function is normal. Atria * The left atrium is moderately dilated. * Right atrial size is normal. * No ASD detected; PFO is not assessed. Mitral Valve * There is mild mitral annular calcification. * There is no mitral valve stenosis. * There is moderate mitral regurgitation. Tricuspid Valve * The tricuspid valve anatomy is normal. * There is no tricuspid stenosis. * There is moderate tricuspid regurgitation. * The estimated systolic PAP is 46mmHg. Aortic Valve * The aortic valve is trileaflet. * No hemodynamically significant valvular aortic stenosis. * Mild aortic regurgitation. Pulmonic Valve * The pulmonary valve is inadequately visualized, but the Doppler data is adequate for interpretation. * There is no pulmonic valvular stenosis. * Mild pulmonic valvular regurgitation. Great Vessels * The aortic root is normal size. Pericardium/Pleural * There is no pericardial effusion. Great Vessels * Normal inferior vena cava size and collapsability with sniff indicates a normal right atrial pressure of 3 mmHg Left Ventricular Diastolic Function * Grade I diastolic dysfunction, (abnormal relaxation pattern). MMode 2D Measurements and Calculations IVSd 1.1 cm IVSs 1.6 cm LVIDd 4.8 cm LVIDs 3.6 cm LVPWd 1.1 cm LVPWs 1.4 cm IVS/LVPW 1.0 FS 26.0 % EDV(Teich) 109.8 ml ESV(Teich) 53.8 ml EF(Teich) 51.0 % EDV(cubed) 113.7 ml ESV(cubed) 46.0 ml EF(cubed) 59.6 % % IVS thick 42.3 % % LVPW thick 31.4 % LV mass(C)d 195.1 grams LV mass(C)dI 119.1 grams/m\S\2 LV mass(C)s 198.9 grams LV mass(C)sI 121.4 grams/m\S\2 CO(Teich) 4.0 l/min CI(Teich) 2.4 l/min/m\S\2 SV(Teich) 56.0 ml SI(Teich) 34.2 ml/m\S\2 CO(cubed) 4.8 l/min CI(cubed) 2.9 l/min/m\S\2 SV(cubed) 67.7 ml SI(cubed) 41.3 ml/m\S\2 Ao root diam 3.3 cm Ao root area 8.4 cm\S\2 ACS 2.0 cm LA dimension 4.1 cm LA/Ao 1.3 LVAd ap4 32.5 cm\S\2 LVLd ap4 8.4 cm EDV(MOD-sp4) 103.0 ml LVAs ap4 19.6 cm\S\2 LVLs ap4 7.0 cm ESV(MOD-sp4) 45.0 ml EF(MOD-sp4) 56.3 % LVAd ap2 31.0 cm\S\2 LVLd ap2 8.2 cm EDV(MOD-sp2) 98.0 ml LVAs ap2 18.3 cm\S\2 LVLs ap2 6.7 cm ESV(MOD-sp2) 43.0 ml EF(MOD-sp2) 56.1 % CO(MOD-sp4) 4.1 l/min CI(MOD-sp4) 2.5 l/min/m\S\2 SV(MOD-sp4) 58.0 ml SI(MOD-sp4) 35.4 ml/m\S\2 CO(MOD-sp2) 3.9 l/min CI(MOD-sp2) 2.4 l/min/m\S\2 SV(MOD-sp2) 55.0 ml SI(MOD-sp2) 33.6 ml/m\S\2 Doppler Measurements and Calculations MV E max linda 76.6 cm/sec MV A max linda 103.1 cm/sec MV E/A 0.74 MV P1/2t max linda 79.8 cm/sec MV P1/2t 183.2 msec MVA(P1/2t) 1.2 cm\S\2 MV dec slope 127.6 cm/sec\S\2 MV dec time 0.40 sec Ao V2 max 151.8 cm/sec Ao max PG 9.2 mmHg Ao max PG (full) 4.9 mmHg AI max linda 455.0 cm/sec AI max PG 82.8 mmHg AI dec slope 242.6 cm/sec\S\2 AI P1/2t 549.3 msec LV V1 max PG 4.3 mmHg LV V1 max 103.5 cm/sec PA V2 max 131.5 cm/sec PA max PG 6.9 mmHg PI max linda 210.4 cm/sec PI max PG 17.7 mmHg PI dec slope 147.5 cm/sec\S\2 PI P1/2t 417.8 msec TR max linda 309.8 cm/sec
[2016-05-14] MEDS: FUROSEMIDE 20 MG TAB PO SCH (20:57)
[2016-05-14] MEDS: OSELTAMIVIR PHOSPHATE SUSP 30 MG/5 ML UDP PO SCH (20:57)
[2016-05-15] VITALS (9 sets, daily range): BP systolic 111–130; BP diastolic 61–77; PULSE 59–86; TEMP 36.4–36.7; O2SAT 96–100
[2016-05-15] MEDS: ALBUT/IPRATROP 3MG/0.5MG NEB 3 ML VIAL INH SCH ×2 (01:39→07:20)
[2016-05-15] MEDS: LEVOTHYROXINE 137 MCG TAB PO SCH (06:18)
[2016-05-15] MEDS: CEFDINIR 300 MG CAP PO SCH ×2 (06:18→16:49)
[2016-05-15] MEDS: FLUTICASONE PROPIONATE NA SPR 16 GM BTL NAE SCH (08:18)
[2016-05-15] MEDS: FLUTICASONE/SALMETEROL 250/50 (ADVAIR) 14 PUFF/1 INHALER INH SCH ×2 (08:18→21:34)
[2016-05-15] MEDS: ASPIRIN 81 MG ECTAB PO SCH (08:19)
[2016-05-15] MEDS: FUROSEMIDE 40 MG TAB PO SCH (08:20)
[2016-05-15] MEDS: PANTOprazole SOD 40 MG TAB PO SCH (08:20)
[2016-05-15] MEDS: DOCUSATE SODIUM 100 MG CAP PO SCH ×2 (08:20→21:35)
[2016-05-15] MEDS: CYANOCOBALAMIN 500 MCG TAB (VIT B-12) PO SCH (08:20)
[2016-05-15] MEDS: ROSUVASTATIN CALCIUM 20 MG TAB PO SCH (08:20)
[2016-05-15] MEDS: SPIRONOLACTONE 25 MG TAB PO SCH (08:21)
[2016-05-15] MEDS: DOXYCYCLINE HYCLATE 100 MG CAP PO SCH ×2 (08:21→21:34)
[2016-05-15] MEDS: CARVEDILOL 25 MG TAB PO SCH ×2 (08:21→21:35)
[2016-05-15] MEDS: CHOLECALCIFEROL 1000 INTER.UNIT TAB PO SCH (08:21)
[2016-05-15] MEDS: IPRATROPIUM BROMIDE/ALBUTEROL respimat INH INH SCH ×2 (12:55→16:50)
--- NOTE | 2016-05-15 17:48 | Progress Note ---
Internal Med Progress Note Date of Service: May 15, 2016. Provider Documentation: SUBJECTIVE: Patient is doing better and eager to be discharged. Chronic SOB, cough has improved since last admission. No chest pain, fever, chills, nausea, vomiting, abdominal pain OBJECTIVE: Vital Signs-as noted below Exam: General-AAOX3, no distress Neck-Supple, No JVD Lungs-AEBE decreased, no wheezing, crackles Heart-S1, S2 normal Abdomen-Soft, non tender, non distended, BS present Extremities-Edema bilaterally Neuro-Grossly, no focal deficit Lab data as noted below. ASSESSMENT & PLAN: GENERALIZED WEAKNESS: Likely physical deconditioning secondary to recent admission (discharged on ) for febrile neutropenia, Influenza B, Possible pneumonia. Patient was adamant about going home, refused repeat CXR, PT/OT and as was clinically stable was discharged home on Omnicef/Doxycycline. -Comes back with generalized weakness, sob episodes- self resolved, elevated troponin 0.2, new EKG changes -PT/OT once stable ELEVATED TROPONIN WITH EKG CHANGES : EKG- T wave inversion in III, AVF, V2-V4, V5-V6- flattening - new compared to EKG on 05/10 but had these changes in prior EKGs . Today EKG shows T wave inversion in II, III, AVF, V4-V6, ST depression in V3 Possibly related to demand ischemia with recent Influenza/Pneumonia ? -No cardiac symptoms. -Trend troponin- trending down (was normal in 02/23), Echo ordered- EF 50-55%, Mid inferior/Posterior scott are hypokinetic, otherwise normal wall motion, Mild AR, Moderate MR, TR, Gd I diastolic dysfunction, PAP Systolic estimated at 46 mm Hg. -Will continue to monitor given new EKG changes, mildly elevated troponin and Echo- hypokinesis mid inferior/posterior wall. Will consult cardiology in AM PROLONGED QTC -QTC 520 -Monitor . Avoid medications which would prolong QTC INFLUENZA B Diagnosed during last admission and recovered clinically. -On tamiflu 30 mg daily (Day 5)- Discontinue- Completed course of 05/14/16 -Ok to discontinue droplet precautions RECENT POSSIBLE PNEUMONIA- Recovering, improving symptoms -Had a fever spike with neutropenia during last admission, CXR- ? infiltrate, refused repeat CXR but today in ED- no acute changes, chronic changes only -On Omnicef/Doxycycline (Day 6/7) from prior admission -No worsening of symptoms PANCYTOPENIA- Improving -Multifactorial: S/P Chemotherapy, Influenza B -No active bleeding -Monitor counts ANEMIA -Hb stable -Likely secondary to chemotherapy, carcinoma -No signs of active bleeding, no melena/fresh red blood with stools -Transfused 2 units PRBCs on 05/11/16 (last admission) -Monitor H & H CKD-III Baseline range has gone up to 1.2-1.4 -Held diuretics--> Okay to restart it today -Monitor SMALL CELL LUNG CANCER -With malignant right pleural effusion s/p pleurectomy and pleurodesis recently -No evidence of distant metastasis- recent bone scan and MRI brain negative -On etoposide/ carboplatin chemo- last tx 04/30/16 -Follows with Dr. Ortega-Hem/onc consulted CHRONIC RESPIRATORY FAILURE/ COPD Not in exacerbation -Continue nebs -PRN nebs -Continue home supplemental O2 (2 L) PULMONARY HYPERTENSION -Hold sildenafil HYPOTHYROIDISM -Continue levothyroxine -TSH-normal DM TYPE 2 Hold glipizide -Insulin sliding scale coverage -A1c was 6.3 on 02/22/16 DVT PROPHYLAXIS -SCD's due to thrombocytopenia CODE STATUS FULL CODE per my discussion with the patient. DISPOSITION PT/OT -Cleared for discharge home Continue to monitor on telemetry for EKG changes/elevated troponin Vital Signs: Date Time Temp Pulse Resp B/P Pulse Ox O2 Delivery O2 Flow Rate FiO2 05/15/16 16:01 36.7 66 18 121/77 99 Nasal Cannula 3.0 05/15/16 16:00 99 Nasal Cannula 3.0 05/15/16 13:28 36.4 59 18 130/68 100 3.0 05/15/16 12:00 100 Nasal Cannula 3.0 05/15/16 08:00 100 Nasal Cannula 3.0 05/15/16 07:49 36.7 63 18 127/61 100 3.0 05/15/16 07:24 86 16 96 Nasal Cannula 3.0 05/15/16 04:03 Nasal Cannula 3.0 05/15/16 03:13 36.6 64 19 117/73 100 Nasal Cannula 3.0 05/15/16 00:02 Nasal Cannula 3.0 05/14/16 22:57 36.8 69 18 107/63 95 Nasal Cannula 3.0 05/14/16 20:00 Nasal Cannula 3.0 05/14/16 19:27 66 16 99 Nasal Cannula 3.0 05/14/16 19:03 36.8 72 18 110/70 98 Nasal Cannula 3.0 Lab Results: Results Past 24 Hours Test 05/15/16 06:39 05/15/16 11:17 05/15/16 16:20 05/15/16 16:46 Range/Units Bedside Glucose 101 99 96 70-90 mg/dl Troponin I 0.040 0-0.045 ng/ml
[2016-05-15] MEDS: FUROSEMIDE 20 MG TAB PO SCH (21:35)
[2016-05-16 00:13] VITALS: BP 104/59; PULSE 63; TEMP 36.8; O2SAT 98
[2016-05-16] MEDS: IPRATROPIUM BROMIDE/ALBUTEROL respimat INH INH SCH ×3 (00:18→12:37)
[2016-05-16 04:38] VITALS: BP 110/65; PULSE 57; TEMP 36.9; O2SAT 99
[2016-05-16] MEDS: LEVOTHYROXINE 137 MCG TAB PO SCH (06:37)
[2016-05-16] MEDS: CEFDINIR 300 MG CAP PO SCH (06:37)
[2016-05-16 07:42] VITALS: BP 114/65; PULSE 61; TEMP 36.8; O2SAT 99
[2016-05-16] MEDS: FLUTICASONE/SALMETEROL 250/50 (ADVAIR) 14 PUFF/1 INHALER INH SCH (08:05)
[2016-05-16] MEDS: CYANOCOBALAMIN 500 MCG TAB (VIT B-12) PO SCH (08:06)
[2016-05-16] MEDS: ASPIRIN 81 MG ECTAB PO SCH (08:06)
[2016-05-16] MEDS: FLUTICASONE PROPIONATE NA SPR 16 GM BTL NAE SCH (08:06)
[2016-05-16] MEDS: CARVEDILOL 25 MG TAB PO SCH (08:06)
[2016-05-16] MEDS: DOCUSATE SODIUM 100 MG CAP PO SCH (08:06)
[2016-05-16] MEDS: SPIRONOLACTONE 25 MG TAB PO SCH (08:07)
[2016-05-16] MEDS: PANTOprazole SOD 40 MG TAB PO SCH (08:07)
[2016-05-16] MEDS: ROSUVASTATIN CALCIUM 20 MG TAB PO SCH (08:07)
[2016-05-16] MEDS: DOXYCYCLINE HYCLATE 100 MG CAP PO SCH (08:07)
[2016-05-16] MEDS: CHOLECALCIFEROL 1000 INTER.UNIT TAB PO SCH (08:07)
[2016-05-16] MEDS: FUROSEMIDE 40 MG TAB PO SCH (08:08)
[2016-05-16 11:21] VITALS: BP 102/64; PULSE 67; TEMP 36.6; O2SAT 95
--- NOTE | 2016-05-16 12:43 | Discharge Instructions ---
Discharge Instructions Date of Service May 16, 2016. Admission Reason for Admission: Shortness Of Breath Discharge Discharge Diagnosis / Problem: 1. Generalized weakness secondary to physical deconditioning Discharge Goals Goal(s): Decrease discomfort Activity Recommendations Activity Limitations: per Instructions/Follow-up section (as tolerated prior to admission) . Instructions / Follow-Up Instructions / Follow-Up MEDICATION CHANGES: 1. Doxycycline and Cefdinir for 2 more days to complete course of 7 days of antibiotics FOLLOW UP 1. With Dr Verdugo on 05/20/16 at 11:05 AM 2. Follow up with Hem/Onc as per schedule Current Hospital Diet Patient's current hospital diet: AHA Diet (Heart Healthy), Diabetes Type 2 Diet Discharge Diet Recommended Diet: AHA Diet (Heart Healthy), Low Sodium Diet (2gm Na), Diabetes Type 2 Diet Pending Studies Studies pending at discharge: no Laboratory Results Hemoglobin A1c Test 02/22/16 07:20 Range/Units Estimated Average Glucose 134 mg/dl Hemoglobin A1c 6.3 H 4.5-5.6 % Medical Emergencies . Who to Call and When: Medical Emergencies: If at any time you feel your situation is an emergency, please call 911 immediately. . Non-Emergent Contact Non-Emergency issues call your: Primary Care Provider . . "Provider Documentation" section prepared by Renita Ortega. VTE Core Measure Inpt VTE Proph given/why not?: Contraindicated (due to thrombocytopenia)
--- NOTE | 2016-05-16 12:46 | Progress Note ---
Internal Med Progress Note Date of Service: May 16, 2016. Provider Documentation: SUBJECTIVE: Patient is doing better and eager to be discharged. Chronic SOB, cough has improved since last admission. No chest pain, fever, chills, nausea, vomiting, abdominal pain OBJECTIVE: Vital Signs-as noted below Exam: General-AAOX3, no distress Neck-Supple, No JVD Lungs-AEBE decreased, no wheezing, crackles Heart-S1, S2 normal Abdomen-Soft, non tender, non distended, BS present Extremities-Edema bilaterally Neuro-Grossly, no focal deficit Lab data as noted below. ASSESSMENT & PLAN: GENERALIZED WEAKNESS: Improved Likely physical deconditioning secondary to recent admission (discharged on ) for febrile neutropenia, Influenza B, Possible pneumonia. Patient was adamant about going home, refused repeat CXR, PT/OT and as was clinically stable was discharged home on Omnicef/Doxycycline. -Comes back with generalized weakness, sob episodes- self resolved, elevated troponin 0.2, new EKG changes -PT/OT - cleared for discharge to home ELEVATED TROPONIN WITH EKG CHANGES : EKG- T wave inversion in III, AVF, V2-V4, V5-V6- flattening in setting of chronic RBBB - new compared to EKG on 05/10 but had these changes in prior EKGs . EKG- continues to show T wave inversions in inferior/Anterior leads. Possibly related to demand ischemia with recent Influenza/Pneumonia ? -No cardiac symptoms. -Trend troponin- trending down (was normal in 02/23), Echo ordered- EF 50-55%, Mid inferior/Posterior scott are hypokinetic, otherwise normal wall motion, Mild AR, Moderate MR, TR, Gd I diastolic dysfunction, PAP Systolic estimated at 46 mm Hg. -Discussed case with Dr Sharma, given no cardiac symptoms, likely secondary to demand ischemia. Will arrange for stress test outpatient. PROLONGED QTC -QTC 520 --> 590 -Tele monitor- NSR with no arrhythmias -Reviewed medication list- no meds which could lengthen QTC. Discontinued zofran on discharge (not requiring it) -Monitor outpatient with repeat EKG. Avoid medications which would prolong QTC INFLUENZA B- Recovered Diagnosed during last admission and recovered clinically. -On tamiflu 30 mg daily (Day 5)- Discontinue- Completed course of 05/14/16 -Ok to discontinue droplet precautions RECENT POSSIBLE PNEUMONIA- Recovering, improving symptoms -Had a fever spike with neutropenia during last admission, CXR- ? infiltrate, refused repeat CXR but today in ED- no acute changes, chronic changes only -On Omnicef/Doxycycline (Day 6/7) from prior admission- finish course -No worsening of symptoms PANCYTOPENIA- Improved -Multifactorial: S/P Chemotherapy, Influenza B -No active bleeding -Monitor counts ANEMIA -Hb stable -Likely secondary to chemotherapy, carcinoma -No signs of active bleeding, no melena/fresh red blood with stools -Transfused 2 units PRBCs on 05/11/16 (last admission) -Monitor H & H CKD-III Baseline range has gone up to 1.2-1.4 -On lasix -Monitor SMALL CELL LUNG CANCER -With malignant right pleural effusion s/p pleurectomy and pleurodesis recently -No evidence of distant metastasis- recent bone scan and MRI brain negative -On etoposide/ carboplatin chemo- last tx 04/30/16 -Follows with Dr. Ortega-Hem/onc consulted CHRONIC RESPIRATORY FAILURE/ COPD Not in exacerbation -Continue nebs -PRN nebs -Continue home supplemental O2 (2 L) PULMONARY HYPERTENSION -Hold sildenafil HYPOTHYROIDISM -Continue levothyroxine -TSH-normal DM TYPE 2 Hold glipizide -Insulin sliding scale coverage -A1c was 6.3 on 02/22/16 DVT PROPHYLAXIS -SCD's due to thrombocytopenia CODE STATUS FULL CODE per my discussion with the patient. DISPOSITION PT/OT -Cleared for discharge home Eager to be discharged Okay to discharge home today. No needs per SS/PT/OT Vital Signs: Date Time Temp Pulse Resp B/P Pulse Ox O2 Delivery O2 Flow Rate FiO2 05/16/16 11:21 36.6 67 18 102/64 95 3.0 05/16/16 08:00 Nasal Cannula 3.0 05/16/16 07:42 36.8 61 18 114/65 99 3.0 05/16/16 04:38 36.9 57 18 110/65 99 Nasal Cannula 2.0 05/16/16 04:00 Nasal Cannula 3.0 05/16/16 00:13 36.8 63 18 104/59 98 Nasal Cannula 2.0 05/16/16 00:02 Nasal Cannula 3.0 05/15/16 20:00 Nasal Cannula 3.0 05/15/16 19:16 36.7 67 18 111/73 99 Nasal Cannula 3.0 05/15/16 16:01 36.7 66 18 121/77 99 Nasal Cannula 3.0 05/15/16 16:00 99 Nasal Cannula 3.0 05/15/16 13:28 36.4 59 18 130/68 100 3.0 Lab Results: Results Past 24 Hours Test 05/15/16 16:20 05/15/16 16:46 05/15/16 20:33 05/16/16 07:08 Range/Units Bedside Glucose 96 105 104 70-90 mg/dl Troponin I 0.040 0-0.045 ng/ml Test 05/16/16 11:08 Range/Units Bedside Glucose 115 70-90 mg/dl
--- NOTE | 2016-05-16 12:50 | Discharge Summary ---
Discharge Summary Date of Service May 16, 2016. Discharge Summary Admission Date: May 13, 2016 at 14:30 Discharge Date: May 16, 2016 Discharge Disposition: Home Principal Diagnosis: 1. Generalized weakness secondary to physical deconditioning/Recovering from acute illness 2. Hx of Influenza B/ Pneumonia 3. Abnormal EKG with mildly elevated troponin 4. Prolonged QTC Secondary Diagnoses/Problems: 1.Pancytopenia 2.Anemia 3.CKD-III 4.PHT 5.Chronic hypoxic respiratory failure 6.Small cell lung ca , stage IV with pleural effusion 7.DM-2 8.Hypothyroidism Procedures: Tele monitoring CT head CXR EKG- serial Troponin-serial Echocardiogram PT/OT Consultations: None Pending Studies/Follow-Up: Instructions / Follow-Up MEDICATION CHANGES: 1. Doxycycline and Cefdinir for 2 more days to complete course of 7 days of antibiotics FOLLOW UP 1. With Dr Verdugo on 05/20/16 at 11:05 AM 2. Follow up with Hem/Onc as per schedule MONITOR: 1. QTC on EKG and avoid medications which would prolong QTC 2. Outpatient stress echocardiogram will be arranged due to elevated troponin with EKG changes Medication Reconciliation Continued Medications: Albuterol Hfa (Ventolin Hfa) 200 Puffs/13269 Mcg Aers 1 PUFFS INH Q4 PRN for Shortness of Breath, #1 INHALER Aspirin Enteric Coated (Ecotrin Or Generic) 81 Mg Tab 81 MG PO QAM, TAB Carvedilol (Coreg) 25 Mg Tab 50 MG PO BID, TAB Cefdinir (Omnicef) 300 Mg Cap 300 MG PO Q12H for 5 Days, #10 CAP Cholecalciferol (Vitamin D3) 1,000 Unit Tab 1 TAB PO QAM Cyanocobalamin (Vitamin B-12) 1,000 Mcg Tab 1000 MCG PO QAM, 0 Refills Docusate Sodium (Docusate Sodium) 100 Mg Cap 100 MG PO BID Doxycycline Hyclate (Doxycycline Hyclate) 100 Mg Cap 100 MG PO BID for 5 Days, #10 CAP Fluticasone Prop/Salmeterol (Advair Diskus 250/50 60 Dose) 1 Ea Aerp 1 PUFF INH BID, INHALER Fluticasone Propionate (Nasal) (Flonase Allergy Relief) 50 Mcg/Act Spr 2 SPRAY LATRICE DAILY Furosemide (Lasix) 40 Mg Tab 40 MG PO QAM, TAB Furosemide (Lasix) 40 Mg Tab 20 MG PO QPM, TAB Glipizide (Glucotrol) 10 Mg Tab 10 MG PO QAM, TAB Hydralazine Hcl (Apresoline) 50 Mg Tab 75 MG PO TID, TAB Iron-Vitamin C (Vitron-C) 1 Tab Tab 65-125 MG PO QAM Levothyroxine Sodium (Levothyroxine Sodium) 137 Mcg Tab 137 MCG PO QAM Lorazepam (Ativan) 0.5 Mg Tab 0.5 MG PO Q6H PRN for Anxiety, TAB Magnesium Hydroxide (Milk of Magnesia 400 mg/5Ml) 1 Glenda Glenda 5 ML PO DAILY PRN for Constipation Omeprazole (Prilosec) 40 Mg Cap 40 MG PO QAM, CAP Oxygen (Oxygen) Gas 2-3 LITERS NA CONTINOUS Polyethylene (Miralax) 17 Gm Pow 17 GM PO DAILY PRN for Constipation Potassium (Potassium) 99 Mg Tab 99 MG PO BID @ NOON AND QPM Rosuvastatin Calcium (Crestor) 40 Mg Tab 40 MG PO QAM, TAB Sildenafil Citrate (Pulmonary (Sildenafil) 20 Mg Tab 20 MG PO TID Spironolactone (Aldactone) 25 Mg Tab 25 MG PO QAM, TAB Discontinued Medications: Ondansetron Hcl (Zofran) 8 Mg Tab 8 MG PO TID PRN for Nausea, TAB Oseltamivir Phosphate (Tamiflu) 6 Mg/Ml Glenda 30 MG PO DAILY@2100 for 3 Days, #3 TAB Prochlorperazine Maleate (Compazine) 10 Mg Tab 10 MG PO Q6H PRN for Nausea, TAB Admission Information HPI (per Admitting provider): 75 year old female who presents to the ER with shortness of breath. Patient was recently admitted to [facility] 05/10 - 05/12 for febrile neutropenia due to influenza A and possible pneumonia. Patient received Zosyn and Vanco while hospitalized and was discharged on Omnicef, Doxycycline, and Tamiflu. Patient reports that almost immediately returning home, she developed shortness of breath which has been progressively getting worse. She reports a moist non productive cough. No fever or chills. She denies chest pain. No lightheadedness, dizziness, diaphoresis, or syncopal events. She has lower extremity edema which she reports has been improving over the past several weeks. She denies abdominal pain, nausea, vomiting, and diarrhea. No urinary symptoms. In the ER, patient is saturating well on her chronic 2L. CXR does not show any acute process. Trop is found to be 0.24 and EKG shows new T-wave inversions laterally and inferiorly. Physical Exam (per Admitting): General Appearance: no apparent distress Head: normocephalic, + evidence of trama (bruising in various stages of healing ) Eyes: normal inspection ENT: hearing grossly normal Neck: supple, no JVD Respiratory/Chest: no respiratory distress, + decreased breath sounds Cardiovascular: regular rate, rhythm, + pertinent finding (+1 pitting edema BLLE) Abdomen/GI: normal bowel sounds, non tender, soft Extremities/Musculoskelatal: normal inspection, no calf tenderness Neurologic/Psych: no motor/sensory deficits, alert, normal mood/affect, oriented x 3 Skin: normal color, warm/dry Hospital Course GENERALIZED WEAKNESS: Improved Likely physical deconditioning secondary to recent admission (discharged on ) for febrile neutropenia, Influenza B, Possible pneumonia. Patient was adamant about going home, refused repeat CXR, PT/OT and as was clinically stable was discharged home on Omnicef/Doxycycline. -Comes back with generalized weakness, sob episodes- self resolved, elevated troponin 0.2, new EKG changes -PT/OT - cleared for discharge to home ELEVATED TROPONIN WITH EKG CHANGES : EKG- T wave inversion in III, AVF, V2-V4, V5-V6- flattening in setting of chronic RBBB - new compared to EKG on 05/10 but had these changes in prior EKGs . EKG- continues to show T wave inversions in inferior/Anterior leads. Possibly related to demand ischemia with recent Influenza/Pneumonia ? -No cardiac symptoms. -Trend troponin- trending down (was normal in 02/23), Echo ordered- EF 50-55%, Mid inferior/Posterior scott are hypokinetic, otherwise normal wall motion, Mild AR, Moderate MR, TR, Gd I diastolic dysfunction, PAP Systolic estimated at 46 mm Hg. -Discussed case with Dr Sharma, given no cardiac symptoms, likely secondary to demand ischemia. Will arrange for stress test outpatient. PROLONGED QTC -QTC 520 --> 590 -Tele monitor- NSR with no arrhythmias -Reviewed medication list- no meds which could lengthen QTC. Discontinued zofran on discharge (not requiring it) -Monitor outpatient with repeat EKG. Avoid medications which would prolong QTC INFLUENZA B- Recovered Diagnosed during last admission and recovered clinically. -On tamiflu 30 mg daily (Day 5)- Discontinue- Completed course of 05/14/16 -Ok to discontinue droplet precautions RECENT POSSIBLE PNEUMONIA- Recovering, improving symptoms -Had a fever spike with neutropenia during last admission, CXR- ? infiltrate, refused repeat CXR but today in ED- no acute changes, chronic changes only -On Omnicef/Doxycycline (Day 6/7) from prior admission- finish course -No worsening of symptoms PANCYTOPENIA- Improved -Multifactorial: S/P Chemotherapy, Influenza B -No active bleeding -Monitor counts ANEMIA -Hb stable -Likely secondary to chemotherapy, carcinoma -No signs of active bleeding, no melena/fresh red blood with stools -Transfused 2 units PRBCs on 05/11/16 (last admission) -Monitor H & H CKD-III Baseline range has gone up to 1.2-1.4 -On lasix -Monitor SMALL CELL LUNG CANCER -With malignant right pleural effusion s/p pleurectomy and pleurodesis recently -No evidence of distant metastasis- recent bone scan and MRI brain negative -On etoposide/ carboplatin chemo- last tx 04/30/16 -Follows with Dr. Ortega-Hem/onc consulted CHRONIC RESPIRATORY FAILURE/ COPD Not in exacerbation -Continue nebs -PRN nebs -Continue home supplemental O2 (2 L) PULMONARY HYPERTENSION -Hold sildenafil HYPOTHYROIDISM -Continue levothyroxine -TSH-normal DM TYPE 2 Hold glipizide -Insulin sliding scale coverage -A1c was 6.3 on 02/22/16 DVT PROPHYLAXIS -SCD's due to thrombocytopenia CODE STATUS FULL CODE per my discussion with the patient. DISPOSITION PT/OT -Cleared for discharge home Eager to be discharged Okay to discharge home today. No needs per SS/PT/OT Total time spent on discharge = 28 minutes This includes examination of the patient, discharge planning, medication reconciliation, and communication with other providers. Discharge Instructions Discharge Goals Goal(s): Decrease discomfort Activity Recommendations Activity Limitations: per Instructions/Follow-up section (as tolerated prior to admission) . Instructions / Follow-Up Instructions / Follow-Up MEDICATION CHANGES: 1. Doxycycline and Cefdinir for 2 more days to complete course of 7 days of antibiotics FOLLOW UP 1. With Dr Verdugo on 05/20/16 at 11:05 AM 2. Follow up with Hem/Onc as per schedule Current Hospital Diet Patient's current hospital diet: AHA Diet (Heart Healthy), Diabetes Type 2 Diet Discharge Diet Recommended Diet: AHA Diet (Heart Healthy), Low Sodium Diet (2gm Na), Diabetes Type 2 Diet Pending Studies Studies pending at discharge: no Laboratory Results Hemoglobin A1c Test 02/22/16 07:20 Range/Units Estimated Average Glucose 134 mg/dl Hemoglobin A1c 6.3 H 4.5-5.6 % Medical Emergencies . Who to Call and When: Medical Emergencies: If at any time you feel your situation is an emergency, please call 911 immediately. . Non-Emergent Contact Non-Emergency issues call your: Primary Care Provider . . "Provider Documentation" section prepared by Renita Ortega. VTE Core Measure Inpt VTE Proph given/why not?: Contraindicated (due to thrombocytopenia)
[2016-05-16 12:54] VITALS: BP 102/64; PULSE 67; TEMP 36.6; O2SAT 95
[2016-08-10] MEDS ORDERED: CHOL1000 PO (09:36)
[2016-08-10] MEDS ORDERED: SPIR25TA PO (09:42)
[2016-08-10] MEDS ORDERED: FRS/40 PO ×2 (09:42→17:54)
[2016-08-10] MEDS ORDERED: ADVIN25/60 INH (09:46)
[2016-08-10] MEDS ORDERED: CYAN10005 PO (10:36)
[2016-08-10] MEDS ORDERED: ASPI81TA21 PO (17:15)
[2016-08-10] MEDS ORDERED: ROSU40TA PO (17:54)
[2016-08-10] MEDS ORDERED: CARV25TA PO (17:57)
[2016-08-10] MEDS ORDERED: GLIP10TA9 PO (17:57)
[2016-08-10] MEDS ORDERED: HYDR-4717 PO (17:57)
[2016-08-10] MEDS ORDERED: OMEP40CA41 PO (17:57)
[2016-08-10] MEDS ORDERED: SILD1TAB39 PO (17:57)
[2016-11-19] MEDS ORDERED: KFL250 PO (10:35)
[2016-11-19] MEDS ORDERED: LCTX PO (10:35)
[2016-11-19] MEDS ORDERED: TRAM-10 PO (10:36)
== END 2016-05-16 14:03 | disposition home or self-care (01) ==
LOC: ENRESERVDT → ENRESERVTM → C.EDB 11:53 → C.2T 14:30
PROVIDERS: ADMIT Internal Medicine; ATTEND Internal Medicine
DX: R53.1 Weakness (principal); R06.02 Shortness of breath; C34.91 Malignant neoplasm of unspecified part of right bronchus or lung; R94.31 Abnormal electrocardiogram [ECG] [EKG]; D61.818 Other pancytopenia; J44.9 Chronic obstructive pulmonary disease, unspecified; I13.0 Hypertensive heart and chronic kidney disease with heart failure and stage 1 through stage 4 chronic kidney disease, or unspecified chronic kidney disease; N18.3 Chronic kidney disease, stage 3 (moderate); J96.11 Chronic respiratory failure with hypoxia; E11.9 Type 2 diabetes mellitus without complications; E03.9 Hypothyroidism, unspecified; Z99.81 Dependence on supplemental oxygen; R79.89 Other specified abnormal findings of blood chemistry; J11.1 Influenza due to unidentified influenza virus with other respiratory manifestations; D64.9 Anemia, unspecified; I27.2 Other secondary pulmonary hypertension; Z51.11 Encounter for antineoplastic chemotherapy; Z87.01 Personal history of pneumonia (recurrent); Z79.82 Long term (current) use of aspirin; Z87.891 Personal history of nicotine dependence; Z83.3 Family history of diabetes mellitus; Z82.49 Family history of ischemic heart disease and other diseases of the circulatory system

== ENCOUNTER 2016-08-10 18:27 | Emergency (ER) | payer OTHER ==
[~2016-08-10] VITALS: Ht 144.8 cm; Wt 71.2 kg
[~2016-08-10 18:27] MED LIST changes: +ADVIN25/60 INH; +ASPI81TA21 PO; +CARV25TA PO; -CEFD300C2 PO; +CHOL1000 PO; +CYAN10005 PO; +FRS/40 PO; +GLIP10TA9 PO; +HYDR-4717 PO; +OMEP40CA41 PO; -ONDA8TAB12 PO; -PROC1TAB5 PO; +ROSU40TA PO; +SILD1TAB39 PO; +SPIR25TA PO; -TMFUDL30 PO
[2016-08-10 18:29] VITALS: TEMP 37.1; Ht 144.8 cm; Wt 71.2 kg
[2016-08-10] MEDS ORDERED: SODIUM CHLORIDE 0.9% 1000ML 1,000 ML IV STA (18:59)
[2016-08-10 19:00] VITALS: O2SAT 97
[2016-08-10] MEDS ORDERED: ONDA8TAB6 PO (19:05)
[2016-08-10] MEDS ORDERED: POTA20TA16 PO (19:05)
[2016-08-10] MEDS ORDERED: PROC1TAB5 PO (19:23)
[2016-08-10] MEDS ORDERED: LORA-741 PO (19:23)
[2016-08-10] MEDS ORDERED: PRED20TA PO (19:23)
[2016-08-10] MEDS ORDERED: TRAM-10 PO (19:23)
[2016-08-10] MEDS ORDERED: CLR10 PO (19:23)
[2016-08-10 19:57] LABS: HEMATOCRIT 24.1 % (37-47); MEAN CELL VOLUME 107.6 fL (80-100); MEAN CORPUSCULAR HEMOGLOBIN 33.9 pg (25-34); MEAN CORPUSCULAR HGB CONC 31.5 g/dl (32-36); MEAN PLATELET VOLUME 8.1 fL (7.4-10.4); PLATELET COUNT 139 K/uL (130-400); RED BLOOD COUNT 2.24 M/uL (4.2-5.4)
--- NOTE | 2016-08-10 19:57 | DIAGNOSTIC IMAGING REPORT ---
CT SCAN OF THE ABDOMEN AND PELVIS WITHOUT IV CONTRAST CLINICAL HISTORY: Generalized abdominal pain. COMPARISON STUDY: Abdominal CT dated 02/27/2016. PET/CT dated 10/16/2014. TECHNIQUE: CT scan of the abdomen and pelvis is performed from the lung bases to the proximal femora. Images are reviewed in the axial, sagittal, and coronal planes. IV contrast was not administered for this examination as per the referring clinician. Note that the examination was performed in significantly suboptimal fashion without oral and IV contrast. Automated dose control exposure was utilized. CT DOSE: 299.26 mGy.cm FINDINGS: Lung bases: The heart is mildly enlarged and there is a small pericardial effusion. The coronary arteries are densely calcified. Hyperdense pleural-based material is present at the right lung base and is likely related to previous pleurodesis. No pleural effusion is identified and there is no airspace consolidation to suggest pneumonia a fat-containing Bochdalek hernia is noted at the right lung base. Punctate calcified granulomas are seen in the left lower lobe. Liver: The unenhanced liver is normal in size, contour, and attenuation. There is no intrahepatic biliary ductal dilatation. Gallbladder: Unremarkable. Spleen: Normal in size and attenuation. Pancreas: The unenhanced pancreas is atrophic and grossly unremarkable. Adrenal glands: Unremarkable. Kidneys: The unenhanced kidneys are atrophic and without hydronephrosis. There are no renal calculi identified. There is no evidence of contour deforming renal mass lesion. Abdominal vasculature: The abdominal aorta is normal in course and caliber noting advanced atherosclerotic calcification. Bowel: The small bowel and colon are normal in course and caliber. Submucosal fat deposition is noted throughout the colon. Question mild wall thickening versus underdistention throughout the colon. No pericolonic inflammation is seen. The appendix is not identified. Peritoneum: There is no intraperitoneal free air or abdominal ascites. Lymphadenopathy: None. Pelvic viscera: The bladder is decompressed and grossly unremarkable. The uterus is surgically absent. No adnexal lesion is seen. Skeletal structures: The skeletal structures are osteopenic. There is lumbosacral spondylosis and scoliosis. No lytic or blastic lesions are seen. There are healed bilateral anterior rib fractures. IMPRESSION: 1. Suboptimal examination without oral and IV contrast. 2. Question mild wall thickening versus underdistention throughout the colon. Underdistention is favored. Correlate clinically for evidence of a mild nonspecific colitis. 3. Mild cardiac enlargement and small pericardial effusion. 4. Findings suggest previous pleurodesis at the right lung base. No pleural effusion is seen. 5. Additional findings as above. Electronically signed by: Dawson Lunsford M.D. 08/10/2016 7:55 PM Dictated Date/Time: 08/10/2016 7:46 PM
[2016-08-10 20:00] LABS: URINE APPEARANCE CLEAR (CLEAR); URINE BILIRUBIN NEG (NEG); URINE COLOR YELLOW; URINE NITRITE NEG (NEG); URINE SPECIFIC GRAVITY 1.013 (1.000-1.030); UROBILINOGEN NEG (NEG); ZZUR CULT IF INDIC CLEAN CATCH NO
[2016-08-10 20:07] LABS: MANUAL MICROSCOPIC REQUIRED? NO; REVIEW REQ? NO
[2016-08-10 20:14] LABS: ALT/SGPT 12 U/L (12-78); BLOOD UREA NITROGEN 17 mg/dl (7-18); BUN/CREATININE RATIO 9.4 (10-20); CALCIUM 8.2 mg/dl (8.5-10.1); CARBON DIOXIDE 31 mmol/L (21-32); CHLORIDE 102 mmol/L (98-107); GLUCOSE 139 mg/dl (70-99); POTASSIUM 3.7 mmol/L (3.5-5.1); SODIUM 139 mmol/L (136-145)
[2016-08-10 20:17] LABS: ALKALINE PHOSPHATASE 52 U/L (45-117); AST/SGOT 14 U/L (15-37)
[2016-08-10] MEDS ORDERED: MRLP17X PO (20:20)
[2016-08-10] MEDS ORDERED: FLUT0.15 NAE (20:20)
[2016-08-10 20:24] LABS: ANISOCYTOSIS PRESENT; BASO % 0.1 %; BASO ABS # 0.02 K/uL (0-0.2); COMPLETE YES; EOS % 0.1 %; IG% 0.4 %; LYMPH % 8.1 %; LYMPH ABS # 1.31 K/uL (1.2-3.4); MONO % 5.5 %; NEUT % 85.8 %; TEAR DROP CELLS OCCASIONAL
[2016-08-10 21:30] VITALS: BP 132/63; PULSE 74; O2SAT 93
--- NOTE | 2016-08-11 02:27 | EMERGENCY ROOM VISIT NOTE ---
History Report prepared by Lazaro: Alesia Alamo Under the Supervision of: Dr. Ramin Boyd M.D. First contact with patient: 18:50 Chief Complaint: GI ASSESSMENT Stated Complaint: STOMACH ACHE History of Present Illness The patient is a 76 year old female who presents to the Emergency Room with complaints of persistent epigastric abdominal pain that began several days ago. She currently is describing her pain as a soreness, and denies the pain radiating to any other part of the body. The patient states that she is currently undergoing chemotherapy treatment for stage IV small cell carcinoma. She states that she is on supplemental oxygen at all times. The patient denies taking anything for her discomfort. She reports a surgical history of a hysterectomy, but denies any history of other abdominal surgeries. The patient' s son states that the patient alternates between being cold and hot often. Pt denies LOC, lightheadedness, headache, fevers, chills, diaphoresis, visual changes, neck pain, chest pain, breathing difficulties, nausea, vomiting, back pain, melena, hematochezia, urinary symptoms, numbness, weakness, lymphadenopathy, rash, or other complaints. Source of History: patient Onset: several days ago Position: abdomen (epigastric) Quality: other (soreness) Timing: other (persistent) Review of Systems See HPI for pertinent positives and negatives. A total of ten systems were reviewed and were otherwise negative. Past Medical & Surgical Medical Problems: (1) Carotid stenosis (2) COPD (chronic obstructive pulmonary disease) (3) DM2 (diabetes mellitus, type 2) (4) Hypertension (5) Hypertensive heart disease (6) Hypothyroid (7) Kidney disease (8) Lung cancer (9) Nocturnal hypoxemia (10) Pulmonary hypertension (11) Small cell carcinoma of right lung Surgical Problems: (1) H/O endarterectomy (2) History of total abdominal hysterectomy (3) S/p pleurectomy and pleurodesis (4) S/P thoracentesis Family History Diabetes mellitus SISTER Heart disease MOTHER Social History Smoking Status: Former Smoker Alcohol Use: none Drug Use: none Marital Status: Housing Status: lives alone Occupation Status: unemployed Current/Historical Medications Scheduled Aspirin Enteric Coated (Ecotrin Or Generic), 81 MG PO QAM Carvedilol (Coreg), 50 MG PO BID Cholecalciferol (Vitamin D3), 1 TAB PO QAM Cyanocobalamin (Vitamin B-12), 1,000 MCG PO QAM Fluticasone Prop/Salmeterol (Advair Diskus 250/50 60 Dose), 1 PUFF INH BID Fluticasone Propionate (Nasal) (Flonase Allergy Relief), 2 SPRAY LATRICE DAILY Furosemide (Lasix), 40 MG PO QAM Furosemide (Lasix), 20 MG PO QPM Glipizide (Glucotrol), 10 MG PO QAM Hydralazine Hcl (Apresoline), 50 MG PO TID Levothyroxine Sodium (Levothyroxine Sodium), 137 MCG PO QAM Loratadine (Claritin), 10 MG PO DAILY Omeprazole (Prilosec), 40 MG PO QAM Potassium Ext Rel (Klor-Con), 20 MEQ PO BID Prednisone (Prednisone), 20 MG PO DAILY Rosuvastatin Calcium (Crestor), 1 TAB PO QAM Sildenafil Citrate (Pulmonary (Sildenafil), 20 MG PO TID Spironolactone (Aldactone), 25 MG PO QAM Scheduled PRN Docusate Sodium (Docusate Sodium), 100 MG PO BID PRN for Constipation Lorazepam (Ativan), 0.5 MG PO Q6H PRN for Anxiety Ondansetron Hcl (Zofran), 8 MG PO TID PRN for Nausea Polyethylene (Miralax), 17 GM PO DAILY PRN for Constipation Prochlorperazine Maleate (Compazine), 10 MG PO Q6H PRN for Nausea Tramadol (Ultram), 25 MG PO Q6 PRN for Pain Allergies Coded Allergies: No Known Allergies (Verified , 08/10/16) Physical Exam Vital Signs Date Time Temp Pulse Resp B/P (MAP) Pulse Ox O2 Delivery O2 Flow Rate FiO2 08/10/16 21:30 74 20 132/63 93 08/10/16 19:05 80 08/10/16 19:00 97 Nasal Cannula 2.0 08/10/16 18:29 37.1 94 20 111/63 90 Nasal Cannula 2.0 Physical Exam GENERAL: Awake, alert, well-appearing, in no distress HENT: Normocephalic, atraumatic. Oropharynx unremarkable. EYES: Normal conjunctiva. Sclera non-icteric. NECK: Supple. No nuchal rigidity. FROM. No JVD. RESPIRATORY: Clear to auscultation. CARDIAC: Regular rate, normal rhythm. Extremities warm and well perfused. Pulses equal. ABDOMEN: Epigastric tenderness to palpation. Soft, non-distended. No rebound or guarding. No masses. RECTAL: Deferred. MUSCULOSKELETAL: Chest examination reveals no tenderness. The back is symmetrical on inspection without obvious abnormality. There is no CVA tenderness to palpation. No joint edema. LOWER EXTREMITIES: 1+ lower extremity edema. Calves are equal size bilaterally and non-tender. No discoloration. NEURO: Normal sensorium. No sensory or motor deficits noted. SKIN: No rash or jaundice noted. Medical Decision & Procedures ER Provider Diagnostic Interpretation: CT: Radiology results as stated below per my review and radiologist interpretation CT SCAN OF THE ABDOMEN AND PELVIS WITHOUT IV CONTRAST CLINICAL HISTORY: Generalized abdominal pain. COMPARISON STUDY: Abdominal CT dated 02/27/2016. PET/CT dated 10/16/2014. TECHNIQUE: CT scan of the abdomen and pelvis is performed from the lung bases to the proximal femora. Images are reviewed in the axial, sagittal, and coronal planes. IV contrast was not administered for this examination as per the referring clinician. Note that the examination was performed in significantly suboptimal fashion without oral and IV contrast. Automated dose control exposure was utilized. CT DOSE: 299.26 mGy.cm FINDINGS: Lung bases: The heart is mildly enlarged and there is a small pericardial effusion. The coronary arteries are densely calcified. Hyperdense pleural-based material is present at the right lung base and is likely related to previous pleurodesis. No pleural effusion is identified and there is no airspace consolidation to suggest pneumonia a fat-containing Bochdalek hernia is noted at the right lung base. Punctate calcified granulomas are seen in the left lower lobe. Liver: The unenhanced liver is normal in size, contour, and attenuation. There is no intrahepatic biliary ductal dilatation. Gallbladder: Unremarkable. Spleen: Normal in size and attenuation. Pancreas: The unenhanced pancreas is atrophic and grossly unremarkable. Adrenal glands: Unremarkable. Kidneys: The unenhanced kidneys are atrophic and without hydronephrosis. There are no renal calculi identified. There is no evidence of contour deforming renal mass lesion. Abdominal vasculature: The abdominal aorta is normal in course and caliber noting advanced atherosclerotic calcification. Bowel: The small bowel and colon are normal in course and caliber. Submucosal fat deposition is noted throughout the colon. Question mild wall thickening versus underdistention throughout the colon. No pericolonic inflammation is seen. The appendix is not identified. Peritoneum: There is no intraperitoneal free air or abdominal ascites. Lymphadenopathy: None. Pelvic viscera: The bladder is decompressed and grossly unremarkable. The uterus is surgically absent. No adnexal lesion is seen. Skeletal structures: The skeletal structures are osteopenic. There is lumbosacral spondylosis and scoliosis. No lytic or blastic lesions are seen. There are healed bilateral anterior rib fractures. IMPRESSION: 1. Suboptimal examination without oral and IV contrast. 2. Question mild wall thickening versus underdistention throughout the colon. Underdistention is favored. Correlate clinically for evidence of a mild nonspecific colitis. 3. Mild cardiac enlargement and small pericardial effusion. 4. Findings suggest previous pleurodesis at the right lung base. No pleural effusion is seen. 5. Additional findings as above. Electronically signed by: Dawson Lunsford M.D. 08/10/2016 7:55 PM Dictated Date/Time: 08/10/2016 7:46 PM Laboratory Results 08/10/16 19:20 Red Blood Count 2.24, Mean Corpuscular Volume 107.6, Mean Corpuscular Hemoglobin 33.9, Mean Corpuscular Hemoglobin Concent 31.5, Mean Platelet Volume 8.1, Neutrophils (%) (Auto) 85.8, Lymphocytes (%) (Auto) 8.1, Monocytes (%) ( Auto) 5.5, Eosinophils (%) (Auto) 0.1, Basophils (%) (Auto) 0.1, Neutrophils # ( Auto) 13.80, Lymphocytes # (Auto) 1.31, Monocytes # (Auto) 0.89, Eosinophils # ( Auto) 0.02, Basophils # (Auto) 0.02 08/10/16 19:20 Test 08/10/16 19:20 08/10/16 19:30 08/10/16 19:32 White Blood Count 16.10 K/uL (4.8-10.8) Red Blood Count 2.24 M/uL (4.2-5.4) Hemoglobin 7.6 g/dL (12.0-16.0) Hematocrit 24.1 % (37-47) Mean Corpuscular Volume 107.6 fL (80-100) Mean Corpuscular Hemoglobin 33.9 pg (25-34) Mean Corpuscular Hemoglobin Concent 31.5 g/dl (32-36) Platelet Count 139 K/uL (130-400) Mean Platelet Volume 8.1 fL (7.4-10.4) Neutrophils (%) (Auto) 85.8 % Lymphocytes (%) (Auto) 8.1 % Monocytes (%) (Auto) 5.5 % Eosinophils (%) (Auto) 0.1 % Basophils (%) (Auto) 0.1 % Neutrophils # (Auto) 13.80 K/uL (1.4-6.5) Lymphocytes # (Auto) 1.31 K/uL (1.2-3.4) Monocytes # (Auto) 0.89 K/uL (0.11-0.59) Eosinophils # (Auto) 0.02 K/uL (0-0.5) Basophils # (Auto) 0.02 K/uL (0-0.2) RDW Standard Deviation 68.9 fL (36.4-46.3) RDW Coefficient of Variation 17.8 % (11.5-14.5) Immature Granulocyte % (Auto) 0.4 % Immature Granulocyte # (Auto) 0.06 K/uL (0.00-0.02) Anisocytosis PRESENT Tear Drop Cells OCCASIONAL Anion Gap 6.0 mmol/L (3-11) Est Creatinine Clear Calc Drug Dose 21.3 ml/min Estimated GFR () 30.9 Estimated GFR (Non- 26.7 BUN/Creatinine Ratio 9.4 (10-20) Calcium Level 8.2 mg/dl (8.5-10.1) Total Bilirubin 0.1 mg/dl (0.2-1) Direct Bilirubin < 0.1 mg/dl (0-0.2) Aspartate Amino Transf (AST/SGOT) 14 U/L (15-37) Alanine Aminotransferase (ALT/SGPT) 12 U/L (12-78) Alkaline Phosphatase 52 U/L (45-117) Total Protein 5.9 gm/dl (6.4-8.2) Albumin 2.5 gm/dl (3.4-5.0) Lipase 144 U/L (73-393) Urine Color YELLOW Urine Appearance CLEAR (CLEAR) Urine pH 5.0 (4.5-7.5) Urine Specific Devers 1.013 (1.000-1.030) Urine Protein NEG (NEG) Urine Glucose (UA) NEG (NEG) Urine Ketones NEG (NEG) Urine Occult Blood NEG (NEG) Urine Nitrite NEG (NEG) Urine Bilirubin NEG (NEG) Urine Urobilinogen NEG (NEG) Urine Leukocyte Esterase NEG (NEG) Bedside Lactic Acid Venous 0.65 mmol/L (0.90-1.70) Laboratory results reviewed by me Medications Administered Medications (Trade) Dose Ordered Sig/Gilbert Route Start Time Stop Time Status Last Admin Dose Admin Sodium Chloride 1,000 ml @ 125 mls/hr Q8H STAT IV 08/10/16 18:59 08/10/16 21:52 DC 08/10/16 18:59 125 MLS/HR ECG Indication: abdominal pain Rate (beats per minute): 80 Rhythm: normal sinus Findings: RBBB, no acute ischemic change, no ectopy ED Course 1858: The patient was evaluated in room A3. A complete history and physical exam was performed. Ordered Sodium Chloride 1000 ml @ 125 mls/hr IV. 2041: I reevaluated the patient and she had minimal amount of abdominal pain. I updated her on her testings at this time. 2014: I discussed the patients case with Dr. Ortega, Oncology. He states that the patient just received Neulasta which explains her white blood cell count. He states that the patient can follow up in the office tomorrow. 2121: I reevaluated the patient and she is doing well. I discussed the exam findings with her and I discussed the treatment plan. She verbalized complete understanding and agreement. She is ready to go home. Medical Decision Medication Reconciliation: I attest that I have personally reviewed the patient' s current medication list Blood pressure screening: Patient was found to have normal blood pressure on screening and does not require follow-up. Triage Nursing notes reviewed. The patient's presentation and history were concerning for abdominal pain and cancer. Etiologies such as appendicitis, diverticulitis, obstruction, inflammatory bowel disease, renal colic, PUD, biliary pathology, pancreatitis, mesenteric ischemia, aortic pathology, infections, genitourinary, UTI, perforated viscus, as well as others were entertained. The patient was evaluated. She was doing relatively well on examination. She had some mild upper abdominal tenderness. This has been intermittent for her. She underwent blood work and imaging. The patient had a mild leukocytosis and anemia. She did receive chemotherapy recently but also received Neulasta per her oncologist Dr. Ortega. The patient had a negative lactate. The remainder of her chemistries were rather unremarkable. Her creatinine was minimally elevated. CT questioned colitis although the patient has had no diarrhea or bloody stools. On reexamination the patient's abdominal pain had resolved completely. She had no abdominal tenderness. The patient desired discharge. As she is doing very well at this time I discussed close follow-up in the office with oncology and the patient agreed. I did discuss this with Dr. Ortega. If the patient worsens in anyway she will come back to the emergency from for reevaluation. By the evaluation outlined above other emergent etiologies such as those listed in the differential, as well as others, were deemed relatively unlikely. The patient was educated about the findings as listed above. All questions were answered and the patient was pleased with the treatment. Return instructions were outlined and the patient was discharged in stable condition. The patient was referred to oncology for follow-up for a recheck of the current condition. Consults Time Called: 2101 Consulting Physician: Dr. Ortega, Oncology Returned Call: 2014 I discussed the patients case with Dr. Ortega, Oncology. He states that the patient just received Neulasta which explains her white blood cell count. He states that the patient can follow up in the office tomorrow. Impression Primary Impression: Epigastric abdominal pain Additional Impression: Anemia Scribe Attestation The scribe's documentation has been prepared under my direction and personally reviewed by me in its entirety. I confirm that the note above accurately reflects all work, treatment, procedures, and medical decision making performed by me. Departure Information Dispostion Discharge/Transfer to [facility] Referrals Callie Verdugo M.D. (PCP) Veto Ortega M.D. Forms HOME CARE DOCUMENTATION FORM, IMPORTANT VISIT INFORMATION Patient Instructions My [facility] Additional Instructions Follow with Dr. Ortega's office tomorrow. ABDOMINAL PAIN INSTRUCTIONS: Acetaminophen(Tylenol) may be used for fever or pain. Use 1000mg every six hours as needed. Avoid using more than 4000mg in a 24 hour period. Rest and drink plenty of fluids as tolerated. Slow sips of water or sports drinks are recommended instead of large amounts all at once. Continue current medications. Once your stomach is settled start with a clear liquid diet (jello, soup broth, etc.) and then advance as tolerated. You should avoid full, heavy meals for about 24 hrs from the time your symptoms resolved. Return to the ER immediately for worsening or persistent abdominal pain, vomiting, fevers, chest pains, difficulty breathing, black or bloody stools, worsening of your condition, or as needed. Problem Qualifiers
== END 2016-08-10 21:31 | disposition home or self-care (01) ==
LOC: C.EDB 18:28 → C.EDA 21:31
DX: R10.13 Epigastric pain (principal); D64.9 Anemia, unspecified; J44.9 Chronic obstructive pulmonary disease, unspecified; E11.9 Type 2 diabetes mellitus without complications; I10 Essential (primary) hypertension; E03.9 Hypothyroidism, unspecified; N18.9 Chronic kidney disease, unspecified; G47.36 Sleep related hypoventilation in conditions classified elsewhere; Z83.3 Family history of diabetes mellitus; Z82.49 Family history of ischemic heart disease and other diseases of the circulatory system; Z87.891 Personal history of nicotine dependence; Z79.82 Long term (current) use of aspirin

== ENCOUNTER 2016-08-28 04:06 | Emergency (ER) | payer OTHER ==
[~2016-08-28] VITALS: Ht 124.5 cm; Wt 71.4 kg
[~2016-08-28 04:06] MED LIST changes: +CLR10 PO; -DXY100 PO; -FERRTAB18 PO; +FLUT0.15 NAE; -MAGNSUS73 PO; +MRLP17X PO; +ONDA8TAB6 PO; -OXGN; +POTA20TA16 PO; -POTA99TA PO; +PRED20TA PO; +PROC1TAB5 PO; +TRAM-10 PO; -VNTHFA/IN INH
[2016-08-28 04:09] VITALS: TEMP 36.8; Ht 124.5 cm; Wt 71.4 kg
[2016-08-28] MEDS ORDERED: SODIUM CHLORIDE 0.9% 500ML 500 ML IV STA (04:23)
[2016-08-28] MEDS ORDERED: ONDANSETRON INJ 2 MG/ML 2 ML VIAL IV STA (04:23)
[2016-08-28] MEDS ORDERED: LORAZEPAM 2 MG/ML 1 ML VIAL IV STA (04:23)
--- NOTE | 2016-08-28 04:29 | EMERGENCY ROOM VISIT NOTE ---
History First contact with patient: 04:12 Chief Complaint: ABDOMINAL PAIN Stated Complaint: ABDOMINAL PAIN,NAUSEA,FEEL SICK History of Present Illness The patient is a 76 year old female who presents to the Emergency Room for evaluation of nausea. Patient currently being treated for SCLC with chemo last week and neulasta shot in last few days. Notes worsening nausea overnight with epigastric abdominal discomfort (denies significant pain), associated with fatigue and not feeling well. No syncope, cp, vomiting, headache, back pain, shob (baseline due to lung CA), diarrhea, urinary symptoms, leg swelling, bruising nor other symptoms. Nothing makes better nor worse. No medications taken for this. Admits similar to symptoms 3 weeks ago for which she was evaluated in ED with extensive testing. Review of Systems See HPI for pertinent positives & negatives. A total of 10 systems reviewed and were otherwise negative. Past Medical/Surgical History Medical Problems: (1) Carotid stenosis (2) COPD (chronic obstructive pulmonary disease) (3) DM2 (diabetes mellitus, type 2) (4) Hypertension (5) Hypertensive heart disease (6) Hypothyroid (7) Kidney disease (8) Lung cancer (9) Nocturnal hypoxemia (10) Pulmonary hypertension (11) Small cell carcinoma of right lung Surgical Problems: (1) H/O endarterectomy (2) History of total abdominal hysterectomy (3) S/p pleurectomy and pleurodesis (4) S/P thoracentesis Family History Diabetes mellitus SISTER Heart disease MOTHER Social History Smoking Status: Never Smoker Alcohol Use: none Drug Use: none Marital Status: Housing Status: lives alone Occupation Status: unemployed Current/Historical Medications Scheduled Aspirin Enteric Coated (Ecotrin Or Generic), 81 MG PO QAM Carvedilol (Coreg), 50 MG PO BID Cholecalciferol (Vitamin D3), 1,000 UNITS PO QAM Cyanocobalamin (Vitamin B-12), 1,000 MCG PO QAM Fluticasone Prop/Salmeterol (Advair Diskus 250/50 60 Dose), 1 PUFF INH BID Fluticasone Propionate (Nasal) (Flonase Allergy Relief), 2 SPRAY LATRICE DAILY Furosemide (Lasix), 40 MG PO QAM Furosemide (Lasix), 20 MG PO QPM Glipizide (Glucotrol), 10 MG PO QAM Hydralazine Hcl (Apresoline), 50 MG PO TID Levothyroxine Sodium (Levothyroxine Sodium), 137 MCG PO QAM Loratadine (Claritin), 10 MG PO DAILY Omeprazole (Prilosec), 40 MG PO QAM Potassium Ext Rel (Klor-Con), 20 MEQ PO BID Prednisone (Prednisone), 20 MG PO DAILY Rosuvastatin Calcium (Crestor), 1 TAB PO QAM Sildenafil Citrate (Pulmonary (Sildenafil), 20 MG PO TID Spironolactone (Aldactone), 25 MG PO QAM Scheduled PRN Docusate Sodium (Docusate Sodium), 100 MG PO BID PRN for Constipation Lorazepam (Ativan), 0.5 MG PO Q6H PRN for Anxiety Ondansetron Hcl (Zofran), 8 MG PO TID PRN for Nausea Polyethylene (Miralax), 17 GM PO DAILY PRN for Constipation Prochlorperazine Maleate (Compazine), 10 MG PO Q6H PRN for Nausea Tramadol (Ultram), 25 MG PO Q6 PRN for Pain Physical Exam Vital Signs Date Time Temp Pulse Resp B/P (MAP) Pulse Ox O2 Delivery O2 Flow Rate FiO2 08/28/16 05:58 84 20 98/54 100 Nasal Cannula 2.0 08/28/16 04:09 36.8 77 20 156/91 98 Nasal Cannula 2.0 Physical Exam GENERAL: Patient is anxious and chronically unwell appearing and in minimal distress. HEENT: No acute trauma, normocephalic atraumatic, mucous membranes moist, no nasal congestion, no scleral icterus. NECK: No stridor, no adenopathy, no meningismus, trachea is midline. LUNGS: Decreased breath sounds throughout. Minimal in RLL. No wheeze, no rhonchi. HEART: Regular rate and rhythm. No murmurs, rubs, gallops appreciated. ABDOMEN: Vague epigastric TTP without peritonitis otherwise soft, nontender, bowel sounds positive, no masses appreciated, no peritonitis. BACK: No midline tenderness, no CVA tenderness EXTREMITIES: Normal motion all extremities, no cyanosis, no edema. NEUROLOGIC: Alert and oriented, no acute motor or sensory deficits, no focal weakness, cranial nerves grossly intact. SKIN: No rash, no jaundice, no diaphoresis. Medical Decision & Procedures Laboratory Results 08/28/16 04:40 Red Blood Count 3.23, Mean Corpuscular Volume 105.0, Mean Corpuscular Hemoglobin 33.4, Mean Corpuscular Hemoglobin Concent 31.9, Mean Platelet Volume 11.8, Neutrophils (%) (Auto) 43.5, Lymphocytes (%) (Auto) 30.8, Monocytes (%) ( Auto) 24.2, Eosinophils (%) (Auto) 0.5, Basophils (%) (Auto) 0.5, Neutrophils # (Auto) 0.79, Lymphocytes # (Auto) 0.56, Monocytes # (Auto) 0.44, Eosinophils # ( Auto) 0.01, Basophils # (Auto) 0.01 08/28/16 04:40 Test 08/28/16 04:40 08/28/16 04:47 08/28/16 05:50 White Blood Count 1.82 K/uL (4.8-10.8) Red Blood Count 3.23 M/uL (4.2-5.4) Hemoglobin 10.8 g/dL (12.0-16.0) Hematocrit 33.9 % (37-47) Mean Corpuscular Volume 105.0 fL (80-100) Mean Corpuscular Hemoglobin 33.4 pg (25-34) Mean Corpuscular Hemoglobin Concent 31.9 g/dl (32-36) Platelet Count 56 K/uL (130-400) Mean Platelet Volume 11.8 fL (7.4-10.4) Neutrophils (%) (Auto) 43.5 % Lymphocytes (%) (Auto) 30.8 % Monocytes (%) (Auto) 24.2 % Eosinophils (%) (Auto) 0.5 % Basophils (%) (Auto) 0.5 % Neutrophils # (Auto) 0.79 K/uL (1.4-6.5) Lymphocytes # (Auto) 0.56 K/uL (1.2-3.4) Monocytes # (Auto) 0.44 K/uL (0.11-0.59) Eosinophils # (Auto) 0.01 K/uL (0-0.5) Basophils # (Auto) 0.01 K/uL (0-0.2) RDW Standard Deviation 61.8 fL (36.4-46.3) RDW Coefficient of Variation 16.1 % (11.5-14.5) Immature Granulocyte % (Auto) 0.5 % Immature Granulocyte # (Auto) 0.01 K/uL (0.00-0.02) Platelet Estimate DECREASED Large Platelets 1+ Tear Drop Cells 1+ Anion Gap 10.0 mmol/L (3-11) Est Creatinine Clear Calc Drug Dose 20.2 ml/min Estimated GFR () 38.5 Estimated GFR (Non- 33.3 BUN/Creatinine Ratio 11.3 (10-20) Calcium Level 7.7 mg/dl (8.5-10.1) Total Bilirubin 0.2 mg/dl (0.2-1) Direct Bilirubin < 0.1 mg/dl (0-0.2) Aspartate Amino Transf (AST/SGOT) 19 U/L (15-37) Alanine Aminotransferase (ALT/SGPT) 16 U/L (12-78) Alkaline Phosphatase 59 U/L (45-117) Troponin I < 0.015 ng/ml (0-0.045) Total Protein 6.1 gm/dl (6.4-8.2) Albumin 2.7 gm/dl (3.4-5.0) Lipase 153 U/L (73-393) Bedside Lactic Acid Venous 0.62 mmol/L (0.90-1.70) Urine Color YELLOW Urine Appearance CLEAR (CLEAR) Urine pH 5.0 (4.5-7.5) Urine Specific [place] 1.014 (1.000-1.030) Urine Protein NEG (NEG) Urine Glucose (UA) NEG (NEG) Urine Ketones NEG (NEG) Urine Occult Blood NEG (NEG) Urine Nitrite NEG (NEG) Urine Bilirubin NEG (NEG) Urine Urobilinogen NEG (NEG) Urine Leukocyte Esterase NEG (NEG) Urine WBC (Auto) 0 /hpf (0-5) Urine RBC (Auto) 0-4 /hpf (0-4) Urine Hyaline Casts (Auto) 1-5 /lpf (0-5) Urine Epithelial Cells (Auto) 0-5 /lpf (0-5) Urine Bacteria (Auto) NEG (NEG) Medications Administered Medications (Trade) Dose Ordered Sig/Gilbert Route Start Time Stop Time Status Last Admin Dose Admin Sodium Chloride 500 ml @ 999 mls/hr Q31M STAT IV 08/28/16 04:23 08/28/16 04:53 DC 08/28/16 04:41 999 MLS/HR Ondansetron HCl (Zofran Inj) 4 mg NOW STAT IV 08/28/16 04:23 08/28/16 04:24 DC 08/28/16 04:42 4 MG Lorazepam (Ativan Inj) 0.5 mg NOW STAT IV 08/28/16 04:23 08/28/16 04:24 DC 08/28/16 04:42 0.5 MG Medical Decision Differential: Cholecystitis, Gallbladder disfunction, Hepatic Disfunction, Gastritis/PUD, Pancreatitis, ACS, Aortic Pathology, amongst other pathologies entertained. 76 yr old female arrives with complaint of epigastric discomfort/nausea 1 week post chemotherapy for her small cell lung cancer. Similar symptoms to a few weeks ago when here. Labs reveal she is neutropenic consistent with her mehran from chemo. She is not febrile nor is there evidence of acute infection. No shob nor cough associated with this. UA is clear. She is stable and feeling better. Son makes clear she sits at home worrying a lot and we discussed using Ativan when necessary. No evidence this episode is related to ACS. Thrombocytopenia is not unnusual for her either. Other labs look good. She very much wishes to go home and i do not feel that bringing her in would be beneficial given her neutropenia. Stressed contacting PCP/Onc today to discuss labs. Hold on CT as no further symptoms, no evidence infection, benign abdomen and having just had CT this month for same symptoms without acute findings. Medication Reconcilliation Current Medication List: was personally reviewed by me Blood Pressure Screening Patient's blood pressure: Elevated blood pressure Blood pressure disposition: Elevated BP felt to be situational, Did not require urgent referral Impression Primary Impression: Epigastric abdominal pain Additional Impressions: Chemotherapy-induced nausea Neutropenia Thrombocytopenia Departure Information Dispostion Home / Self-Care Condition FAIR Referrals Callie Verdugo M.D. (PCP) Patient Instructions My [facility] Additional Instructions Your blood counts were low with you having a neutrophil count of 790. Please contact your oncologist to make them aware. Return immediately or contact your oncologist if you develop of a fever. Use your Zofran and Ativan as needed for nausea and anxiety at home. Return if worsening pain, fevers, vomiting, passing out or other concerns. We are always here to help. Avoid large crowds or people with illness as your body is unable to fight off infections with your low blood counts. Problem Qualifiers
[2016-08-28 05:12] LABS: ALT/SGPT 16 U/L (12-78); AST/SGOT 19 U/L (15-37); BLOOD UREA NITROGEN 17 mg/dl (7-18); BUN/CREATININE RATIO 11.3 (10-20); CALCIUM 7.7 mg/dl (8.5-10.1); CARBON DIOXIDE 23 mmol/L (21-32); CHLORIDE 104 mmol/L (98-107); GLUCOSE 101 mg/dl (70-99); POTASSIUM 3.5 mmol/L (3.5-5.1); SODIUM 137 mmol/L (136-145)
[2016-08-28 05:17] LABS: ALKALINE PHOSPHATASE 59 U/L (45-117)
[2016-08-28 05:51] LABS: HEMATOCRIT 33.9 % (37-47); MEAN CORPUSCULAR HEMOGLOBIN 33.4 pg (25-34); MEAN CORPUSCULAR HGB CONC 31.9 g/dl (32-36); MEAN PLATELET VOLUME 11.8 fL (7.4-10.4); PLATELET COUNT 56 K/uL (130-400); RED BLOOD COUNT 3.23 M/uL (4.2-5.4); WHITE BLOOD COUNT 1.82 K/uL (4.8-10.8)
[2016-08-28 05:55] LABS: BASO % 0.5 %; BASO ABS # 0.01 K/uL (0-0.2); COMPLETE YES; EOS % 0.5 %; IG% 0.5 %; LARGE PLATELETS 1+; LYMPH % 30.8 %; LYMPH ABS # 0.56 K/uL (1.2-3.4); MONO % 24.2 %; NEUT % 43.5 %; PLT ESTIMATE DECREASED; TEAR DROP CELLS 1+
[2016-08-28 06:25] LABS: URINE APPEARANCE CLEAR (CLEAR); URINE BILIRUBIN NEG (NEG); URINE COLOR YELLOW; URINE EPITHELIAL CELL AUTO 0-5 /lpf (0-5); URINE NITRITE NEG (NEG); URINE SPECIFIC GRAVITY 1.014 (1.000-1.030); UROBILINOGEN NEG (NEG); ZZUR CULT IF INDIC CLEAN CATCH NO
[2016-08-28 06:28] LABS: MANUAL MICROSCOPIC REQUIRED? NO; REVIEW REQ? NO
[2016-08-28 06:42] VITALS: BP 121/63; PULSE 78; O2SAT 99
[2016-11-19] MEDS ORDERED: KFL250 PO (10:35)
[2016-11-19] MEDS ORDERED: LCTX PO (10:35)
[2016-11-19] MEDS ORDERED: TRAM-10 PO (10:36)
== END 2016-08-28 06:52 | disposition home or self-care (01) ==
LOC: C.EDB 04:06
DX: R10.13 Epigastric pain (principal); R11.0 Nausea; T45.1X5A Adverse effect of antineoplastic and immunosuppressive drugs, initial encounter; D70.9 Neutropenia, unspecified; D69.6 Thrombocytopenia, unspecified; C34.91 Malignant neoplasm of unspecified part of right bronchus or lung; J44.9 Chronic obstructive pulmonary disease, unspecified; E11.9 Type 2 diabetes mellitus without complications; I10 Essential (primary) hypertension; E03.9 Hypothyroidism, unspecified; I27.2 Other secondary pulmonary hypertension; Z90.710 Acquired absence of both cervix and uterus; Z98.890 Other specified postprocedural states; Z83.3 Family history of diabetes mellitus; Z79.82 Long term (current) use of aspirin; Z79.84 Long term (current) use of oral hypoglycemic drugs; Z79.899 Other long term (current) drug therapy

== ENCOUNTER 2016-11-14 08:38 | Inpatient (IN) | payer OTHER ==
[~2016-11-14] VITALS: Ht 149.9 cm; Wt 75.8 kg
[2016-11-14] MEDS ORDERED: SODIUM CHLORIDE 0.9% 1000ML 1,000 ML IV STA (09:04)
[2016-11-14] MEDS ORDERED: SODIUM CHLORIDE 0.9% 1000ML 1,000 ML IV ONE (09:04)
[2016-11-14 09:32] LABS: URINE APPEARANCE CLEAR (CLEAR); URINE BILIRUBIN NEG (NEG); URINE COLOR YELLOW; URINE NITRITE NEG (NEG); URINE SPECIFIC GRAVITY 1.009 (1.000-1.030); UROBILINOGEN NEG (NEG)
[2016-11-14 09:33] LABS: BASO % 0.2 %; BASO ABS # 0.02 K/uL (0-0.2); EOS % 0.2 %; HEMATOCRIT 26.4 % (37-47); IG% 0.8 %; LYMPH % 10.8 %; MEAN CELL VOLUME 106.9 fL (80-100); MEAN CORPUSCULAR HEMOGLOBIN 32.8 pg (25-34); MEAN CORPUSCULAR HGB CONC 30.7 g/dl (32-36); MEAN PLATELET VOLUME 8.4 fL (7.4-10.4); MONO % 17.3 %; NEUT % 70.7 %; PLATELET COUNT 164 K/uL (130-400); RED BLOOD COUNT 2.47 M/uL (4.2-5.4); WHITE BLOOD COUNT 9.26 K/uL (4.8-10.8)
[2016-11-14 09:35] LABS: MANUAL MICROSCOPIC REQUIRED? NO; REVIEW REQ? NO
[2016-11-14] MEDS ORDERED: FERRTAB18 PO (09:40)
[2016-11-14] MEDS ORDERED: PROM25TA9 PO (09:40)
[2016-11-14] MEDS ORDERED: GLC5 PO (09:40)
[2016-11-14 09:53] LABS: ANISOCYTOSIS PRESENT; COMPLETE YES; POLYCHROMASIA 1+; TEAR DROP CELLS 1+
[2016-11-14 09:54] LABS: BUN/CREATININE RATIO 20.7 (10-20); CALCIUM 8.7 mg/dl (8.5-10.1); CREATININE 1.5 mg/dl (0.60-1.20)
--- NOTE | 2016-11-14 10:30 | DIAGNOSTIC IMAGING REPORT ---
CHEST ONE VIEW PORTABLE CLINICAL HISTORY: 76 years-old Female presenting with CHEST PAIN. TECHNIQUE: Portable upright AP view of the chest was obtained. COMPARISON: 05/13/2016. FINDINGS: Right internal jugular Mediport terminates in the lower SVC and has been accessed. Atherosclerosis of the aortic arch. Cardiac silhouette top normal in size. Persistent prominence of the ashlyn, unchanged. Lungs and pleural spaces clear. Degenerative changes of the thoracic spine. Upper abdomen normal. IMPRESSION: 1. No acute cardiopulmonary disease. 2. Chronic hilar fullness correlates to the known mediastinal mass/adenopathy better evaluated on CT from 02/27/2016. Electronically signed by: David Wood M.D. 11/14/2016 10:28 AM Dictated Date/Time: 11/14/2016 10:26 AM
--- NOTE | 2016-11-14 11:27 | DIAGNOSTIC IMAGING REPORT ---
R SHOULDER MIN 2 VIEWS ROUTINE CLINICAL HISTORY: 76 years-old Female presenting with eval for trauma, fall a few days ago, persistent right shoulder pain. TECHNIQUE: Internal rotation, external rotation, and Grashey views of the right shoulder were obtained. COMPARISON: Comparison made to chest x-ray from 05/13/2016. FINDINGS: Glenohumeral and acromioclavicular joints congruent. No acute fracture or malalignment. Osteopenia may be present. There is ill-defined permeative changes within the medial cortex of the proximal humeral metaphysis and potentially within the medullary cavity. A Mediport is noted. IMPRESSION: 1. No acute osseous injury. 2. Findings concerning for permeative osseous lesion in the proximal right humeral metaphysis. Given the patient's clinical history of small cell lung cancer, this is concerning for osseous metastatic disease. Recommend nuclear bone scan or PET/CT for further evaluation. The report will be called/faxed according to standard departmental protocol. Electronically signed by: David Wood M.D. 11/14/2016 11:25 AM Dictated Date/Time: 11/14/2016 11:22 AM
[2016-11-14] MEDS ORDERED: ACETAMINOPHEN 500 MG TAB PO STA (12:33)
--- NOTE | 2016-11-14 13:03 | DIAGNOSTIC IMAGING REPORT ---
HEAD WITHOUT CONTRAST (CT) CLINICAL HISTORY: 76 years-old Female presenting with confusion, lung CA. TECHNIQUE: Multidetector CT imaging of the head was performed without the use of intravenous contrast. IV contrast: None. A dose lowering technique was used consistent with the principles of ALARA (as low as reasonably achievable). COMPARISON: 05/13/2016. CT DOSE (mGy.cm): The estimated cumulative dose is 537.48 mGy.cm. FINDINGS: Personal Financial Representative topogram: Unremarkable. Ventricles and sulci normal in size. Brain parenchyma normal in appearance with preserved garcía-white differentiation. No mass effect or midline shift. No hemorrhage or acute territorial infarct. No extra-axial fluid collection. Paranasal sinuses and mastoid air cells clear. Calvarium intact. IMPRESSION: 1. No acute intracranial pathology. Electronically signed by: David Wood M.D. 11/14/2016 1:02 PM Dictated Date/Time: 11/14/2016 1:00 PM
[2016-11-14 14:41] LABS: PARTIAL THROMBOPLASTIN RATIO 1.2; PROTHROMBIN TIME (PATIENT) 10.8 SECONDS (9.0-12.0)
[2016-11-14 15:18] LABS: ACETAMINOPHEN 6 ug/ml (10-30)
[2016-11-14] MEDS ORDERED: ONDANSETRON INJ 2 MG/ML 2 ML VIAL IV PRN (16:00)
[2016-11-14] MEDS ORDERED: CEFTRIAXONE SOD INJ 1,000 MG in DEXTROSE 5% 50ML 50 ML IV SCH (16:09)
[2016-11-14] MEDS ORDERED: POLYETHYLENE (MIRALAX) 17 GM PACK PO PRN (16:15)
[2016-11-14] MEDS ORDERED: IV FLUIDS COMPLETED PRN (16:15)
[2016-11-14] MEDS ORDERED: FLUTICASONE PROPIONATE NA SPR 16 GM BTL NAE PRN (16:15)
[2016-11-14] MEDS ORDERED: DOCUSATE SODIUM 100 MG CAP PO PRN (16:15)
--- NOTE | 2016-11-14 16:29 | EMERGENCY ROOM VISIT NOTE ---
History Report prepared by Lazaro: Soniay Ocampo Under the Supervision of: Dr. Blake Medina M.D. First contact with patient: 08:52 Chief Complaint: ILLNESS Stated Complaint: NOT FEELING WELL History of Present Illness The patient is a 76 year old female who presents to the Emergency Room with complaints of a constant illness beginning last night. The patient states that she felt feverish last night and had some nausea. 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 She notes that her last treatment was 3 weeks ago. The patient's son states that the patient has been more confused lately. The patient complains of leg swelling that she has had before. She denies any cough, vomiting, changes in drinking, diarrhea, abdominal pain, headache, numbness, weakness, and urinary symptoms. Source of History: patient Onset: last night Position: other (global) Quality: other (illness) Timing: constant Associated Symptoms: + nausea, No headache, No cough, No vomiting, No abdominal pain, No diarrhea, No urinary symptoms, No weakness, No numbness Note: Pt notes leg swelling. Review of Systems See HPI for pertinent positives & negatives. A total of 10 systems reviewed and were otherwise negative. Past Medical & Surgical Medical Problems: (1) ALAINA (acute kidney injury) (2) Cancer of lung (3) Carcinoma, lung (4) Carotid stenosis (5) COPD (chronic obstructive pulmonary disease) (6) DM2 (diabetes mellitus, type 2) (7) Hypertension (8) Hypertensive heart disease (9) Hypothyroid (10) Kidney disease (11) Lung cancer (12) Nocturnal hypoxemia (13) Pulmonary hypertension (14) Small cell carcinoma of right lung (15) UTI (urinary tract infection) Surgical Problems: (1) H/O endarterectomy (2) History of total abdominal hysterectomy (3) S/p pleurectomy and pleurodesis (4) S/P thoracentesis Old medical records were reviewed. Nurse's notes were reviewed and I agree with. Family History Diabetes mellitus SISTER Heart disease MOTHER Social History Smoking Status: Never Smoker Alcohol Use: none Drug Use: none Marital Status: Housing Status: lives alone Occupation Status: unemployed Current/Historical Medications Scheduled Aspirin Enteric Coated (Ecotrin Or Generic), 81 MG PO QAM Carvedilol (Coreg), 25 MG PO BID Cholecalciferol (Vitamin D3), 1,000 UNITS PO QAM Cyanocobalamin (Vitamin B-12), 1,000 MCG PO QAM Furosemide (Lasix), 40 MG PO BID Glipizide (Glipizide), 5 MG PO QAM Hydralazine Hcl (Apresoline), 75 MG PO TID Iron-Vitamin C (Vitron-C), 1 TAB PO DAILY Levothyroxine Sodium (Levothyroxine Sodium), 137 MCG PO QAM Lorazepam (Ativan), 0.5 MG PO BID Omeprazole (Prilosec), 40 MG PO QAM Ondansetron Hcl (Zofran), 8 MG PO BID Potassium Ext Rel (Klor-Con), 20 MEQ PO BID Promethazine Hcl (Phenergan), 25 MG PO BID Rosuvastatin Calcium (Crestor), 40 MG PO QAM Sildenafil Citrate (Pulmonary (Sildenafil), 20 MG PO TID Spironolactone (Aldactone), 25 MG PO QAM Scheduled PRN Docusate Sodium (Docusate Sodium), 100 MG PO BID PRN for Constipation Fluticasone Prop/Salmeterol (Advair Diskus 250/50 60 Dose), 1 PUFF INH BID PRN for Fluticasone Propionate (Nasal) (Flonase Allergy Relief), 2 SPRAY LATRICE DAILY PRN for Loratadine (Claritin), 10 MG PO DAILY PRN for Polyethylene (Miralax), 17 GM PO DAILY PRN for Constipation Prochlorperazine Maleate (Compazine), 10 MG PO Q6H PRN for Nausea Tramadol (Ultram), 25 MG PO Q6 PRN for Pain Allergies Coded Allergies: No Known Allergies (Verified , 11/14/16) Physical Exam Vital Signs Date Time Temp Pulse Resp B/P (MAP) Pulse Ox O2 Delivery O2 Flow Rate FiO2 11/14/16 16:14 89 18 189/91 96 Nasal Cannula 2.0 11/14/16 15:12 91 20 164/84 97 Nasal Cannula 2.0 11/14/16 14:08 86 22 11/14/16 14:01 155/84 11/14/16 13:38 93 23 11/14/16 13:31 155/91 11/14/16 13:08 84 24 99 11/14/16 13:02 90 11/14/16 13:01 173/77 11/14/16 11:38 83 20 99 11/14/16 11:31 152/101 11/14/16 11:14 147/101 11/14/16 10:43 78 20 150/87 99 Room Air 2.0 11/14/16 10:31 150/87 11/14/16 10:24 150/69 11/14/16 10:08 85 100 11/14/16 09:38 81 25 99 11/14/16 09:31 152/79 11/14/16 09:30 84 20 152/79 99 Room Air 11/14/16 09:08 83 22 98 11/14/16 09:01 153/79 11/14/16 09:01 85 11/14/16 08:45 37.0 86 18 149/81 95 Nasal Cannula 2.0 Physical Exam General: Chronically-ill appearing older female in no acute distress. Answers most questions appropriately but does have some confusion which son says has been present. HEENT: Normal cephalic atraumatic. Pupils are equal round and reactive to light. Extraocular movements are intact. Oropharynx is pink with moist mucous membranes. No swelling of the mouth lips or tongue. Neck: Supple with a midline trachea. No meningeal signs or stiffness, no JVD or bruits. No Stridor. Chest: Clear to auscultation bilaterally. No wheezes or rhonchi. No increased work of breathing. Heart: regular rate and rhythm. Abdomen: Soft nontender, nondistended without rebound guarding or rigidity. Extremities: No cyanosis clubbing. No calf tenderness or assymetry. Some leg swelling that son says is normal. Spine/Back. Non tender to palpation. No CVA tenderness Skin: Good turgor without rashes. Neurologic exam: Cranial nerves two through 12 are intact. Motor and sensation are intact and symmetrical throughout. Medical Decision & Procedures ER Provider Diagnostic Interpretation: Radiology results as stated below per my review and radiologist interpretation: CHEST ONE VIEW PORTABLE FINDINGS: Right internal jugular Mediport terminates in the lower SVC and has been accessed. Atherosclerosis of the aortic arch. Cardiac silhouette top normal in size. Persistent prominence of the ashlyn, unchanged. Lungs and pleural spaces clear. Degenerative changes of the thoracic spine. Upper abdomen normal. IMPRESSION: 1. No acute cardiopulmonary disease. 2. Chronic hilar fullness correlates to the known mediastinal mass/adenopathy better evaluated on CT from 02/27/2016. Electronically signed by: David Wood M.D. 11/14/2016 10:28 AM Dictated Date/Time: 11/14/2016 10:26 AM R SHOULDER MIN 2 VIEWS ROUTINE FINDINGS: Glenohumeral and acromioclavicular joints congruent. No acute fracture or malalignment. Osteopenia may be present. There is ill-defined permeative changes within the medial cortex of the proximal humeral metaphysis and potentially within the medullary cavity. A Mediport is noted. IMPRESSION: 1. No acute osseous injury. 2. Findings concerning for permeative osseous lesion in the proximal right humeral metaphysis. Given the patient's clinical history of small cell lung cancer, this is concerning for osseous metastatic disease. Recommend nuclear bone scan or PET/CT for further evaluation. The report will be called/faxed according to standard departmental protocol. Electronically signed by: David Wood M.D. 11/14/2016 11:25 AM Dictated Date/Time: 11/14/2016 11:22 AM HEAD WITHOUT CONTRAST (CT) FINDINGS: Ele[employer] topogram: Unremarkable. Ventricles and sulci normal in size. Brain parenchyma normal in appearance with preserved garcía-white differentiation. No mass effect or midline shift. No hemorrhage or acute territorial infarct. No extra-axial fluid collection. Paranasal sinuses and mastoid air cells clear. Calvarium intact. IMPRESSION: 1. No acute intracranial pathology. Electronically signed by: David Wood M.D. 11/14/2016 1:02 PM Dictated Date/Time: 11/14/2016 1:00 PM Laboratory Results 11/14/16 09:10 Red Blood Count 2.47, Mean Corpuscular Volume 106.9, Mean Corpuscular Hemoglobin 32.8, Mean Corpuscular Hemoglobin Concent 30.7, Mean Platelet Volume 8.4, Neutrophils (%) (Auto) 70.7, Lymphocytes (%) (Auto) 10.8, Monocytes (%) ( Auto) 17.3, Eosinophils (%) (Auto) 0.2, Basophils (%) (Auto) 0.2, Neutrophils # (Auto) 6.55, Lymphocytes # (Auto) 1.00, Monocytes # (Auto) 1.60, Eosinophils # ( Auto) 0.02, Basophils # (Auto) 0.02 11/14/16 09:10 Test 11/14/16 09:10 11/14/16 09:15 11/14/16 09:19 11/14/16 09:36 White Blood Count 9.26 K/uL (4.8-10.8) Red Blood Count 2.47 M/uL (4.2-5.4) Hemoglobin 8.1 g/dL (12.0-16.0) Hematocrit 26.4 % (37-47) Mean Corpuscular Volume 106.9 fL (80-100) Mean Corpuscular Hemoglobin 32.8 pg (25-34) Mean Corpuscular Hemoglobin Concent 30.7 g/dl (32-36) Platelet Count 164 K/uL (130-400) Mean Platelet Volume 8.4 fL (7.4-10.4) Neutrophils (%) (Auto) 70.7 % Lymphocytes (%) (Auto) 10.8 % Monocytes (%) (Auto) 17.3 % Eosinophils (%) (Auto) 0.2 % Basophils (%) (Auto) 0.2 % Neutrophils # (Auto) 6.55 K/uL (1.4-6.5) Lymphocytes # (Auto) 1.00 K/uL (1.2-3.4) Monocytes # (Auto) 1.60 K/uL (0.11-0.59) Eosinophils # (Auto) 0.02 K/uL (0-0.5) Basophils # (Auto) 0.02 K/uL (0-0.2) RDW Standard Deviation 72.7 fL (36.4-46.3) RDW Coefficient of Variation 18.5 % (11.5-14.5) Immature Granulocyte % (Auto) 0.8 % Immature Granulocyte # (Auto) 0.07 K/uL (0.00-0.02) Nucleated RBC Absolute Count (auto) 0.04 K/uL (0-0) Nucleated Red Blood Cells % 0.4 % Polychromasia 1+ Anisocytosis PRESENT Tear Drop Cells 1+ Prothrombin Time 10.8 SECONDS (9.0-12.0) Prothromb Time International Ratio 1.0 (0.9-1.1) Activated Partial Thromboplast Time 30.1 SECONDS (21.0-31.0) Partial Thromboplastin Ratio 1.2 Anion Gap 7.0 mmol/L (3-11) Est Creatinine Clear Calc Drug Dose 26.8 ml/min Estimated GFR () 38.5 Estimated GFR (Non- 33.3 BUN/Creatinine Ratio 20.7 (10-20) Calcium Level 8.7 mg/dl (8.5-10.1) Total Bilirubin 0.2 mg/dl (0.2-1) Direct Bilirubin 0.1 mg/dl (0-0.2) Aspartate Amino Transf (AST/SGOT) 19 U/L (15-37) Alanine Aminotransferase (ALT/SGPT) 13 U/L (12-78) Alkaline Phosphatase 57 U/L (45-117) Total Protein 6.6 gm/dl (6.4-8.2) Albumin 2.6 gm/dl (3.4-5.0) Lipase 168 U/L (73-393) Urine Color YELLOW Urine Appearance CLEAR (CLEAR) Urine pH 7.0 (4.5-7.5) Urine Specific [place] 1.009 (1.000-1.030) Urine Protein NEG (NEG) Urine Glucose (UA) NEG (NEG) Urine Ketones NEG (NEG) Urine Occult Blood NEG (NEG) Urine Nitrite NEG (NEG) Urine Bilirubin NEG (NEG) Urine Urobilinogen NEG (NEG) Urine Leukocyte Esterase SMALL (NEG) Urine WBC (Auto) 10-30 /hpf (0-5) Urine RBC (Auto) 0-4 /hpf (0-4) Urine Hyaline Casts (Auto) 0 /lpf (0-5) Urine Epithelial Cells (Auto) 10-20 /lpf (0-5) Urine Bacteria (Auto) 1+ (NEG) Bedside Lactic Acid Venous 0.75 mmol/L (0.90-1.70) Bedside Troponin I < 0.030 ng/ml (0-0.045) Test 11/14/16 14:32 Ammonia 10.0 umol/L (11-32) Salicylates Level < 1.7 mg/dl (2.8-20) Acetaminophen Level 6 ug/ml (10-30) Laboratory studies as stated above per my review. Medications Administered Medications (Trade) Dose Ordered Sig/Gilbert Route Start Time Stop Time Status Last Admin Dose Admin Sodium Chloride 1,000 ml @ 999 mls/hr Q1H1M STAT IV 11/14/16 09:04 11/14/16 10:04 DC 11/14/16 09:35 999 MLS/HR Sodium Chloride 1,000 ml @ 150 mls/hr Q6H40M ONCE IV 11/14/16 09:04 11/14/16 15:43 DC 11/14/16 09:36 150 MLS/HR Acetaminophen (Tylenol Tab) 500 mg NOW STAT PO 11/14/16 12:33 11/14/16 12:34 DC 11/14/16 12:37 500 MG ECG Indication: weakness Rate (beats per minute): 84 Rhythm: normal sinus Findings: PVC, RBBB, no acute ischemic change Comparison ECG Date: 08/28/16 Change: no significant change ED Course 0852: Past medical records reviewed. The patient was evaluated in room B11, and a complete history and physical examination were performed. 0904: Sodium Chloride 1000 ml @ 150 mls/hr IV, Sodium Chloride 1000 ml @ 999 mls /hr IV. 1040: I reevaluated and updated the patient. She notes that she hurt her shoulder when she fell but did not have any head injury. 1233: Tylenol Tab 500mg PO. 1237: I reevaluated the patient. She asked for something for her shoulder pain. 1400: I spoke to the patients son. He notes that she has been taking too much Tylenol. He is concerned about her safety at home. 1501: Discussed the patient's case with Dr. Keenan of [facility]. The patient will be evaluated for further management. 1504: Upon reevaluation, the patient is doing well. I discussed the results and treatment plan with the patient. She verbalized agreement of the treatment plan. The patient will be evaluated for further management. Medical Decision Differentials include, but are not limited to; infection, cancer, electrolyte or metabolic abnormality, infection. This patient comes in as described above. She has small cell cancer and is receiving chemotherapy. She does also have a port in place. She is here with very nonspecific complaints of not feeling well. She has had some confusion which her son feels as been increasing lately. The son says that the patient has been in denial about her cancer as well. She lives by herself and he is concerned about her being able to take care of herself. Additionally, he tells me after she had been here for several hours that he is concerned that she is taking too much Tylenol and ibuprofen and she denies taking extra but she can't remember. In light of this, I did add blood work to look at that as well. She has no elevation fever or white count. She has some anemia which is about baseline. Chest x-ray is unremarkable. She's been complaining of right shoulder pain as well and there on x-ray there may be metastatic involvement potentially. CAT scan of her head was unremarkable. Urinalysis does not suggest a UTI. Her ammonia was not elevated. I do not think that she likely has any acetaminophen toxicity as she has normal LFTs as well as coags and a normal acetaminophen level. Her son is concerned about her being at home by herself. She's had a functional decline. I do think she needs to be admitted for further treatment and evaluation and safety. I have consulted Dr. miller to see her in the emergency department. Medication Reconcilliation Current Medication List: was personally reviewed by me Blood Pressure Screening Patient's blood pressure: Elevated blood pressure Blood pressure disposition: Elevated BP felt to be situational Consults Time Called: 1500 Consulting Physician: Dr. Shlomo Walsh Returned Call: 1501 Discussed the patient's case. The patient will be evaluated for further management. Impression Primary Impression: Altered mental status Additional Impression: Cancer of lung Scribe Attestation The scribe's documentation has been prepared under my direction and personally reviewed by me in its entirety. I confirm that the note above accurately reflects all work, treatment, procedures, and medical decision making performed by me. Departure Information Dispostion Being Evaluated By Hospitalist Referrals No Doctor, Assigned (PCP) Patient Instructions [facility] Problem Qualifiers
--- NOTE | 2016-11-14 16:54 | HISTORY & PHYSICAL EXAMINATION ---
DATE OF ADMISSION: 11/14/2016 PRIMARY CARE PROVIDER: Dr. Verdugo. CHIEF COMPLAINT: Not feeling well since last night. 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 She has not had sleep since last evening and she has been wondering about. She is having frequency but no dysuria. She feels feverish but did not take her temperature; nauseous, no vomiting, and no diarrhea. She was brought in by her son with these complaints. In the ER, she was hemodynamically stable. She is in denial for her lung cancer and also ongoing treatment. She did not have any acute distress and her blood counts remained fairly unremarkable. The UA did show possible infection; and creatinine was elevated to 1.50. From that point, she was admitted to medical floor for continuation of care. 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 PAST SURGICAL HISTORY: Significant for total hysterectomy, left carotid endarterectomy, Pleural biopsy during last admission. FAMILY HISTORY: Significant that sister has diabetes and mother did have heart disease. SOCIAL HISTORY: She is a . She lives alone. She quit smoking in 2007 with a [id number] history of smoking. She does not use any alcohol and she has been ambulant. REVIEW OF SYSTEMS: A total of 10-point review of system unremarkable except those mentioned in the history of present complaint. ALLERGIES: NKDA. MEDICATIONS: She has been on aspirin 21 mg daily, Coreg 25 mg b.i.d., vitamin D 1000 units daily, vitamin B12 1000 mcg daily, docusate sodium 100 mg b.i.d., Advair Diskus 250/50 one puff b.i.d., Flonase nasal spray 2 sprays daily, furosemide 40 mg daily, glipizide 5 mg daily, hydralazine 75 mg 3 times daily, levothyroxine 137 mcg daily, Claritin 10 mg daily, Ativan 0.5 mg b.i.d. as needed, Zofran 8 mg daily, MiraLax 17 grams daily, potassium 20 mEq b.i.d., Compazine 10 mg q. 6 hourly p.r.n., Phenergan 25 mg b.i.d., Crestor 40 mg daily, sildenafil citrate 20 mg tablet t.i.d., Aldactone 25 mg in the morning, Ultram 50 mg daily, omeprazole 40 mg daily, and also by Vitron-C 1 tablet daily. PHYSICAL EXAMINATION: GENERAL: On examination in the Emergency Room, she was not having any acute distress. VITAL SIGNS: Temperature 37.0, pulse was 90, blood pressure 164/84, saturation 97% on 2 liters nasal cannula. HEENT: Unremarkable. NECK: Supple. No JVD, no bruit. CHEST: Clear to auscultate bilaterally with decreased breath sounds both sides. HEART: S1, S2 regular. ABDOMEN: Soft, benign, nontender, no organomegaly. Bowel sounds present. EXTREMITIES: Trace to 1+ edema bilaterally. MUSCULOSKELETAL SYSTEM: Did not show any acute arthritis. CENTRAL NERVOUS SYSTEM: She was alert, awake, oriented x3. She did not have any focal neurological deficits on examination. She is generally weak. LABORATORY DATA: Noted today white count was 9.26, H&H 8.1/26.4, platelet was 164. Sodium 138, potassium 4.0, chloride 100, carbon dioxide 30, BUN 31, creatinine 1.50. Random glucose 99 and lactate and LFTs unremarkable. Albumin 2.6, lipase 1.168. PT, PTT normal. Toxicology - acetaminophen 6, salicylates 1.7. UA examination showed Leuk small, white count 10-30, bacteria 1+. IMAGING DATA: Chest x-ray reported as no acute cardiopulmonary disease, chronic hilar fullness known mediastinal mass and adenopathy, better evaluated on CAT scan from 02/27/2016. X-ray of the shoulder - finding concerning of osseous lesion in the proximal right humeral metaphysis. Concerning of osseous metastatic disease. CT of the head - no acute intracranial process. EKG was in sinus rhythm with occasional premature ventricular complexes, 84 per minute, right bundle branch block with associated ST-T wave changes. Troponin was less than 0.03. Ammonia was 10. IMPRESSION AND PLAN: 1. Urinary frequency with possible urinary tract infection. The patient will be admitted to medical floor. Urine culture will be sent and she was started with intravenous ceftriaxone. She was advised to drink more fluid. 2. Questionable change in mental status with history of lung cancer, undergoing chemo. She is in denial. 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 She does not have any acute symptoms at this time. 3. Chronic obstructive pulmonary disease, severe, no acute exacerbation. Continue with current inhalers. 4.Congestive heart failure with preserved LVF. She will be continued with her usual medications. Her Lasix will be on hold. She will be getting a small amount of IV fluid. 5.ALAINA secondary to Dehydration.Secondary to poor oral intake.Will give small amount of IV F and monitor renal function. 6. Hypertension. Blood pressure seems to be stable at this time. Continue current medication. 7. Hypothyroidism. Continue with supplement. 8. Hyperlipidemia. Continue with statin. 9. Gastrointestinal prophylaxis with omeprazole. 10. Deep venous thrombosis prophylaxis with subcutaneous heparin. 11. Code status. Discussed with the son. She will be a full code. In my clinical judgment, the beneficiary meets criteria as per CMS for 2-midnight stay in the hospital. NEEMAD
[2016-11-14 17:00] VITALS: BP 151/84; PULSE 93; TEMP 37; O2SAT 95; BMI 32.6
[2016-11-14] MEDS: TRAMADOL HCL 50 MG TAB PO PRN (17:40)
[2016-11-14] MEDS: HEPARIN SOD 5000 UNIT/0.5 ML CARP SQ SCH ×2 (18:19→23:28)
[2016-11-14] MEDS: CEFTRIAXONE SOD INJ 1,000 MG in DEXTROSE 5% 50ML 50 ML IV SCH (18:21)
[2016-11-14] MEDS ORDERED: GLUCAGON FOR INJ 1 MG VIAL SQ PRN (19:00)
[2016-11-14] MEDS ORDERED: GLUCOSE 10 TABS/TUBE PO PRN (19:00)
[2016-11-14] MEDS ORDERED: DEXTROSE 50% 50 ML SYR IV PRN (19:00)
[2016-11-14] MEDS ORDERED: GLUCOSE 40% GEL 15 GM TUBE PO PRN (19:00)
[2016-11-14 19:44] VITALS: BP 152/90; PULSE 91; TEMP 36.8; O2SAT 92
[2016-11-14] MEDS: ACETAMINOPHEN 325 MG TAB PO PRN (19:46)
[2016-11-14] MEDS ORDERED: NURSING VERBAL MED ORDER PRN (20:00)
[2016-11-14] MEDS ORDERED: INFLUENZA ADMINISTRATION CHARGE ONE (20:15)
[2016-11-14] MEDS ORDERED: INFLUENZA VACCINE HIGH DOSE 65+ 0.5 ML SYR IM. ONE (20:15)
[2016-11-14] MEDS: INSULIN ASPART 100 UNITS/ML 3 ML PEN SC SCH (21:00)
[2016-11-14] MEDS: FLUTICASONE/SALMETEROL 250/50 (ADVAIR) 14 PUFF/1 INHALER INH SCH (21:20)
[2016-11-14] MEDS: SILDENAFIL CITRATE 20 MG TAB PO SCH (21:21)
[2016-11-14] MEDS: LORAZEPAM 0.5 MG TAB PO SCH (21:21)
[2016-11-14 21:22] VITALS: BP 147/73; PULSE 86
[2016-11-14] MEDS: CARVEDILOL 25 MG TAB PO SCH (21:25)
[2016-11-14] MEDS: POTASSIUM CHLORIDE 20 MEQ TABCR PO SCH (21:27)
[2016-11-14] MEDS: PROMETHAZINE HCL 25 MG TAB PO SCH (21:27)
[2016-11-14] MEDS ORDERED: MoRPHine SULFATE 4 MG/ML 1 ML CARP\\VIAL IV PRN (22:45)
[2016-11-14 23:41] VITALS: BP 95/59; PULSE 77; TEMP 36.6; O2SAT 99
[2016-11-15 04:19] VITALS: BP 113/67; PULSE 76; TEMP 36.9; O2SAT 98
[2016-11-15] MEDS: LEVOTHYROXINE 137 MCG TAB PO SCH (05:43)
[2016-11-15 06:39] LABS: BUN/CREATININE RATIO 17.5 (10-20); CALCIUM 8.8 mg/dl (8.5-10.1); CREATININE 1.2 mg/dl (0.60-1.20); POTASSIUM 4.2 mmol/L (3.5-5.1)
[2016-11-15 06:44] VITALS: Ht 149.9 cm; Wt 75.8 kg
[2016-11-15] MEDS: TRAMADOL HCL 50 MG TAB PO PRN ×3 (07:21→23:44)
[2016-11-15 07:31] VITALS: BP 137/74; PULSE 81; TEMP 36.9; O2SAT 100
[2016-11-15] MEDS ORDERED: NON-FORMULARY MEDICATION (Iron-Vitamin C (Vitron-C) 1 TAB) PO SCH (08:00)
[2016-11-15] MEDS: CYANOCOBALAMIN 500 MCG TAB (VIT B-12) PO SCH (08:48)
[2016-11-15] MEDS: ASPIRIN 81 MG ECTAB PO SCH (08:49)
[2016-11-15] MEDS: ROSUVASTATIN CALCIUM 20 MG TAB PO SCH (08:50)
[2016-11-15] MEDS: PANTOprazole SOD 40 MG TAB PO SCH (08:50)
[2016-11-15] MEDS: POTASSIUM CHLORIDE 20 MEQ TABCR PO SCH ×2 (08:50→20:52)
[2016-11-15] MEDS: SPIRONOLACTONE 25 MG TAB PO SCH (08:51)
[2016-11-15] MEDS: CHOLECALCIFEROL 1000 INTER.UNIT TAB PO SCH (08:51)
[2016-11-15] MEDS: CARVEDILOL 25 MG TAB PO SCH ×2 (08:52→20:49)
[2016-11-15] MEDS: PROMETHAZINE HCL 25 MG TAB PO SCH ×2 (08:53→20:50)
[2016-11-15] MEDS: FLUTICASONE/SALMETEROL 250/50 (ADVAIR) 14 PUFF/1 INHALER INH SCH ×2 (08:53→20:49)
[2016-11-15] MEDS: SILDENAFIL CITRATE 20 MG TAB PO SCH ×3 (08:53→20:51)
[2016-11-15] MEDS: HEPARIN SOD 5000 UNIT/0.5 ML CARP SQ SCH ×3 (08:58→23:39)
[2016-11-15] MEDS: LORAZEPAM 0.5 MG TAB PO SCH ×2 (08:58→20:52)
[2016-11-15] MEDS: INSULIN ASPART 100 UNITS/ML 3 ML PEN SC SCH ×4 (09:02→20:53)
[2016-11-15] MEDS: ACETAMINOPHEN 325 MG TAB PO PRN ×2 (09:44→20:15)
--- NOTE | 2016-11-15 10:47 | Clinical Documentation Query ---
CLINICAL DOCUMENTATION QUERY Dr. BUSCH, In your clinical opinion is this patient being managed for: ( + ) Chronic kidney disease, stage 3 ( ) Not Agree ( ) Other explanation of clinical findings (Please Explain) ( ) Unable to determine (Please Define) ( ) Need to Discuss The medical record reflects the following clinical findings, treatment, and risk factors. Clinical Indicators: 76 yo female presenting with known Hx of CKD. GFR range of 33.3-48.7 over the past 2 years Treatment: monitor PRP's, treat comorbid conditions Risk Factors: age, lung cancer, DM, COPD, HTN, CHF Please clarify and document your clinical opinion in the progress notes and discharge summary. Terms such as "probable", "suspected", "likely", "questionable", "possible", or "still to be ruled out" are acceptable. IF IN AGREEMENT, YOU MUST DOCUMENT ABOVE DIAGNOSTIC STATEMENT IN DAILY PROGRESS NOTES AND DISCHARGE SUMMARY. This document is not part of the patient's record. Thank You, Anusha Richards RN [phone]
[2016-11-15 11:13] VITALS: BP 105/58; PULSE 79; TEMP 36.7; O2SAT 93
[2016-11-15 15:02] VITALS: BP 90/52; PULSE 73; TEMP 36.9; O2SAT 91
[2016-11-15 16:00] VITALS: O2SAT 93
--- NOTE | 2016-11-15 16:50 | Progress Note ---
Internal Med Progress Note Date of Service: Nov 15, 2016. Provider Documentation: SUBJECTIVE: The patient was sen and examined Feels a lot better today Still has the frequency OBJECTIVE: Vital Signs-as noted below Exam: General-no distress at rest Eyes-normal ENT-normal Neck-supple Lungs-Clear to ausucltate bilaterally Heart-Regular,no murmur Abdomen-Benign,no manisha,bowel sound present Extremities-No edema Neuro-AAOx3 Lab data as noted below. ASSESSMENT & PLAN: Urinary frequency with possible urinary tract infection. Urine Culture is positive for E Coli Sensitivity -pending Pt is already feeling better Questionable change in mental status with history of lung cancer, Undergoing chemo. She is in denial. 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 She does not have any acute symptoms at this time. Confusion resolved Chronic obstructive pulmonary disease, severe, no acute exacerbation. Continue with current inhalers. Congestive heart failure with preserved LVF. She will be continued with her usual medications. Her Lasix will be on hold. She will be getting a small amount of IV fluid. ALAINA on CKD Stage III ALAINA secondary to Dehydration. Secondary to poor oral intake.Will give small amount of IV F and monitor renal function. Resolved Hypertension. Blood pressure seems to be stable at this time. Continue current medication. Hypothyroidism. Continue with supplement. Hyperlipidemia. Continue with statin. Gastrointestinal prophylaxis with omeprazole. Deep venous thrombosis prophylaxis with subcutaneous heparin. Code status. Discussed with the son. She will be a full code. PT/OT evaluation Likely home tomorrow Vital Signs: Date Time Temp Pulse Resp B/P (MAP) Pulse Ox O2 Delivery O2 Flow Rate FiO2 11/15/16 15:02 36.9 73 18 90/52 (65) 91 Nasal Cannula 2.0 11/15/16 11:13 36.7 79 18 105/58 (74) 93 Nasal Cannula 2.0 11/15/16 09:00 Nasal Cannula 2.0 11/15/16 07:31 36.9 81 18 137/74 (95) 100 Nasal Cannula 2.0 11/15/16 04:19 36.9 76 20 113/67 (82) 98 Nasal Cannula 2.0 11/15/16 00:00 Nasal Cannula 2.0 11/14/16 23:41 36.6 77 20 95/59 (71) 99 Nasal Cannula 2.0 11/14/16 21:22 86 147/73 (97) 11/14/16 20:00 Nasal Cannula 2.0 11/14/16 19:44 36.8 91 18 152/90 (110) 92 Nasal Cannula 2.0 Lab Results: Results Past 24 Hours Test 11/14/16 20:42 11/15/16 05:36 11/15/16 07:41 11/15/16 11:39 Range/Units Bedside Glucose 100 93 90 70-90 mg/dl Sodium Level 139 136-145 mmol/L Potassium Level 4.2 3.5-5.1 mmol/L Chloride Level 103 98-107 mmol/L Carbon Dioxide Level 27 21-32 mmol/L Anion Gap 9.0 3-11 mmol/L Blood Urea Nitrogen 21 7-18 mg/dl Creatinine 1.20 0.60-1.20 mg/dl Est Creatinine Clear Calc Drug Dose 34.2 ml/min Estimated GFR () 50.5 Estimated GFR (Non- 43.6 BUN/Creatinine Ratio 17.5 10-20 Random Glucose 95 70-99 mg/dl Estimated Average Glucose 126 mg/dl Hemoglobin A1c 6.0 4.5-5.6 % Calcium Level 8.8 8.5-10.1 mg/dl Test 11/15/16 16:43 Range/Units Bedside Glucose 93 70-90 mg/dl
[2016-11-15] MEDS: CEFTRIAXONE SOD INJ 1,000 MG in DEXTROSE 5% 50ML 50 ML IV SCH (17:39)
[2016-11-15 19:33] VITALS: BP 137/69; PULSE 84; TEMP 37.2; O2SAT 97
[2016-11-16] VITALS (14 sets, daily range): BP systolic 100–157; BP diastolic 51–73; PULSE 70–85; TEMP 36.5–37.2; O2SAT 93–100
[2016-11-16] MEDS: ACETAMINOPHEN 325 MG TAB PO PRN ×3 (04:32→16:01)
[2016-11-16] MEDS: LEVOTHYROXINE 137 MCG TAB PO SCH (05:57)
[2016-11-16 06:03] LABS: HEMATOCRIT 26.3 % (37-47); MEAN CELL VOLUME 107.8 fL (80-100); MEAN CORPUSCULAR HEMOGLOBIN 31.6 pg (25-34); MEAN CORPUSCULAR HGB CONC 29.3 g/dl (32-36); MEAN PLATELET VOLUME 8.6 fL (7.4-10.4); PLATELET COUNT 129 K/uL (130-400); RED BLOOD COUNT 2.44 M/uL (4.2-5.4); WHITE BLOOD COUNT 7.09 K/uL (4.8-10.8)
[2016-11-16 06:43] LABS: BUN/CREATININE RATIO 15.3 (10-20); CALCIUM 8.5 mg/dl (8.5-10.1); CREATININE 1.4 mg/dl (0.60-1.20); MAGNESIUM 1.7 mg/dl (1.8-2.4); PHOSPHORUS 2.8 mg/dl (2.5-4.9); POTASSIUM 4.4 mmol/L (3.5-5.1)
[2016-11-16] MEDS: SPIRONOLACTONE 25 MG TAB PO SCH (07:21)
[2016-11-16] MEDS: FLUTICASONE/SALMETEROL 250/50 (ADVAIR) 14 PUFF/1 INHALER INH SCH ×2 (07:21→20:20)
[2016-11-16] MEDS: LORAZEPAM 0.5 MG TAB PO SCH ×2 (07:22→20:26)
[2016-11-16] MEDS: PROMETHAZINE HCL 25 MG TAB PO SCH ×2 (07:24→20:22)
[2016-11-16] MEDS: POTASSIUM CHLORIDE 20 MEQ TABCR PO SCH ×2 (07:24→20:23)
[2016-11-16] MEDS: ASPIRIN 81 MG ECTAB PO SCH (07:24)
[2016-11-16] MEDS: CHOLECALCIFEROL 1000 INTER.UNIT TAB PO SCH (07:24)
[2016-11-16] MEDS: CYANOCOBALAMIN 500 MCG TAB (VIT B-12) PO SCH (07:24)
[2016-11-16] MEDS: PANTOprazole SOD 40 MG TAB PO SCH (07:24)
[2016-11-16] MEDS: ROSUVASTATIN CALCIUM 20 MG TAB PO SCH (07:25)
[2016-11-16] MEDS: CARVEDILOL 25 MG TAB PO SCH ×2 (07:25→20:21)
[2016-11-16] MEDS: SILDENAFIL CITRATE 20 MG TAB PO SCH ×3 (07:25→20:24)
[2016-11-16] MEDS: TRAMADOL HCL 50 MG TAB PO PRN ×3 (08:19→20:20)
[2016-11-16] MEDS: INSULIN ASPART 100 UNITS/ML 3 ML PEN SC SCH ×4 (08:40→20:27)
[2016-11-16] MEDS: HEPARIN SOD 5000 UNIT/0.5 ML CARP SQ SCH ×3 (08:41→23:48)
[2016-11-16] MEDS ORDERED: MAGNESIUM OXIDE 400 MG TAB PO ONE (08:45)
--- NOTE | 2016-11-16 13:18 | Progress Note ---
Internal Med Progress Note Date of Service: Nov 16, 2016. Provider Documentation: SUBJECTIVE: The patient was sen and examined Feels a lot better today Still has the frequency Denies any complaints OBJECTIVE: Vital Signs-as noted below Exam: General-no distress at rest Eyes-normal ENT-normal Neck-supple Lungs-Clear to ausucltate bilaterally Heart-Regular,no murmur Abdomen-Benign,no manisha,bowel sound present Extremities-No edema Neuro-AAOx3 Lab data as noted below. ASSESSMENT & PLAN: Anemia Hb dropped to 7.7 Will give 1 unit of PRBC Urinary frequency with possible urinary tract infection. Urine Culture is positive for E Coli Sensitivity -Pansensitive Pt is already feeling better Continue with Physical therapy Will start Keflex Questionable change in mental status with history of lung cancer, Undergoing chemo. She is in denial. 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 She does not have any acute symptoms at this time. Confusion resolved Chronic obstructive pulmonary disease, severe, no acute exacerbation. Continue with current inhalers. Congestive heart failure with preserved LVF. She will be continued with her usual medications. Her Lasix will be on hold. She will be getting a small amount of IV fluid. ALAINA on CKD Stage III ALAINA secondary to Dehydration. Secondary to poor oral intake.Will give small amount of IV F and monitor renal function. Resolved Hypertension. Blood pressure seems to be stable at this time. Continue current medication. Hypothyroidism. Continue with supplement. Hyperlipidemia. Continue with statin. Gastrointestinal prophylaxis with omeprazole. Deep venous thrombosis prophylaxis with subcutaneous heparin. Code status. Discussed with the son. She will be a full code. PT/OT evaluation Likely home this afternoon Vital Signs: Date Time Temp Pulse Resp B/P (MAP) Pulse Ox O2 Delivery O2 Flow Rate FiO2 11/16/16 12:50 36.9 74 18 113/64 100 2.0 11/16/16 12:15 37.0 74 18 116/67 98 2.0 11/16/16 11:45 36.9 72 18 116/64 99 2.0 11/16/16 11:30 37.0 73 18 100/58 100 2.0 11/16/16 11:30 37.0 73 18 100/58 100 2.0 11/16/16 11:08 37.2 77 18 116/65 11/16/16 08:00 93 Nasal Cannula 2.0 11/16/16 07:41 36.5 80 18 134/67 (89) 93 Nasal Cannula 2.0 11/16/16 04:55 36.5 70 18 117/65 (82) 97 2.0 11/16/16 00:16 36.5 71 18 108/51 (70) 97 2.0 11/16/16 00:00 Nasal Cannula 2.0 11/15/16 19:33 37.2 84 18 137/69 (91) 97 2.0 11/15/16 16:00 93 Nasal Cannula 2.0 11/15/16 15:02 36.9 73 18 90/52 (65) 91 Nasal Cannula 2.0 Lab Results: Results Past 24 Hours Test 11/15/16 16:43 11/15/16 20:07 11/16/16 05:45 11/16/16 07:59 Range/Units Bedside Glucose 93 123 109 70-90 mg/dl White Blood Count 7.09 4.8-10.8 K/uL Red Blood Count 2.44 4.2-5.4 M/uL Hemoglobin 7.7 12.0-16.0 g/dL Hematocrit 26.3 37-47 % Mean Corpuscular Volume 107.8 80-100 fL Mean Corpuscular Hemoglobin 31.6 25-34 pg Mean Corpuscular Hemoglobin Concent 29.3 32-36 g/dl RDW Standard Deviation 73.1 36.4-46.3 fL RDW Coefficient of Variation 18.5 11.5-14.5 % Platelet Count 129 130-400 K/uL Mean Platelet Volume 8.6 7.4-10.4 fL Sodium Level 137 136-145 mmol/L Potassium Level 4.4 3.5-5.1 mmol/L Chloride Level 103 98-107 mmol/L Carbon Dioxide Level 28 21-32 mmol/L Anion Gap 6.0 3-11 mmol/L Blood Urea Nitrogen 21 7-18 mg/dl Creatinine 1.40 0.60-1.20 mg/dl Est Creatinine Clear Calc Drug Dose 29.4 ml/min Estimated GFR () 41.9 Estimated GFR (Non- 36.2 BUN/Creatinine Ratio 15.3 10-20 Random Glucose 101 70-99 mg/dl Calcium Level 8.5 8.5-10.1 mg/dl Phosphorus Level 2.8 2.5-4.9 mg/dl Magnesium Level 1.7 1.8-2.4 mg/dl Test 11/16/16 11:50 Range/Units Bedside Glucose 78 70-90 mg/dl
[2016-11-16] MEDS: CEPHALEXIN MONOHYDRATE 250 MG CAP PO SCH ×2 (14:13→20:25)
[2016-11-16] MEDS ORDERED: NURSING VERBAL MED ORDER ONE ×2 (15:45→21:30)
[2016-11-16] MEDS: DICLOFENAC SOD 1% GEL 100 GM TUBE EXT SCH ×2 (16:02→20:19)
[2016-11-16] MEDS: MoRPHine SULFATE 2 MG/ML CARP IV PRN (21:37)
[2016-11-17] VITALS (8 sets, daily range): BP systolic 114–148; BP diastolic 64–85; PULSE 79–92; TEMP 37–37.6; O2SAT 90–98
[2016-11-17] MEDS: LEVOTHYROXINE 137 MCG TAB PO SCH (05:57)
[2016-11-17 06:08] LABS: HEMATOCRIT 29.5 % (37-47); MEAN CELL VOLUME 104.2 fL (80-100); MEAN CORPUSCULAR HEMOGLOBIN 32.5 pg (25-34); MEAN CORPUSCULAR HGB CONC 31.2 g/dl (32-36); MEAN PLATELET VOLUME 8.8 fL (7.4-10.4); PLATELET COUNT 135 K/uL (130-400); RED BLOOD COUNT 2.83 M/uL (4.2-5.4); WHITE BLOOD COUNT 9.42 K/uL (4.8-10.8)
[2016-11-17] MEDS: SPIRONOLACTONE 25 MG TAB PO SCH (08:15)
[2016-11-17] MEDS: LORAZEPAM 0.5 MG TAB PO SCH ×2 (08:16→20:34)
[2016-11-17] MEDS: CARVEDILOL 25 MG TAB PO SCH ×2 (08:16→20:38)
[2016-11-17] MEDS: ROSUVASTATIN CALCIUM 20 MG TAB PO SCH (08:17)
[2016-11-17] MEDS: ASPIRIN 81 MG ECTAB PO SCH (08:17)
[2016-11-17] MEDS: POTASSIUM CHLORIDE 20 MEQ TABCR PO SCH ×2 (08:18→20:39)
[2016-11-17] MEDS: CEPHALEXIN MONOHYDRATE 250 MG CAP PO SCH ×3 (08:18→20:40)
[2016-11-17] MEDS: SILDENAFIL CITRATE 20 MG TAB PO SCH ×3 (08:19→20:39)
[2016-11-17] MEDS: PANTOprazole SOD 40 MG TAB PO SCH (08:19)
[2016-11-17] MEDS: PROMETHAZINE HCL 25 MG TAB PO SCH ×2 (08:19→20:41)
[2016-11-17] MEDS: TRAMADOL HCL 50 MG TAB PO PRN ×2 (08:20→14:11)
[2016-11-17] MEDS: CHOLECALCIFEROL 1000 INTER.UNIT TAB PO SCH (08:20)
[2016-11-17] MEDS: CYANOCOBALAMIN 500 MCG TAB (VIT B-12) PO SCH (08:20)
[2016-11-17] MEDS: FLUTICASONE/SALMETEROL 250/50 (ADVAIR) 14 PUFF/1 INHALER INH SCH ×2 (08:23→20:40)
[2016-11-17] MEDS: DICLOFENAC SOD 1% GEL 100 GM TUBE EXT SCH ×4 (08:23→20:36)
[2016-11-17] MEDS: HEPARIN SOD 5000 UNIT/0.5 ML CARP SQ SCH ×2 (08:26→15:41)
[2016-11-17] MEDS: INSULIN ASPART 100 UNITS/ML 3 ML PEN SC SCH ×4 (09:14→20:30)
[2016-11-17] MEDS: MoRPHine SULFATE 2 MG/ML CARP IV PRN (09:16)
--- NOTE | 2016-11-17 15:46 | Progress Note ---
Internal Med Progress Note Date of Service: Nov 17, 2016. Provider Documentation: SUBJECTIVE: The patient was sen and examined Feels a lot better today Still has the frequency Denies any complaints Ambulating without any difficulty OBJECTIVE: Vital Signs-as noted below Exam: General-no distress at rest Eyes-normal ENT-normal Neck-supple Lungs-Clear to ausucltate bilaterally Heart-Regular,no murmur Abdomen-Benign,no manisha,bowel sound present Extremities-No edema Neuro-AAOx3 Lab data as noted below. ASSESSMENT & PLAN: Anemia Hb dropped to 7.7 Will give 1 unit of PRBC Hb 9.2 today 11/17/16 Urinary frequency with possible urinary tract infection. Urine Culture is positive for E Coli Sensitivity -Pansensitive Pt is already feeling better Continue with Physical therapy Will start Keflex Denies any symptoms Questionable change in mental status with history of lung cancer, Undergoing chemo. She is in denial. 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 She does not have any acute symptoms at this time. Confusion resolved Chronic obstructive pulmonary disease, severe, no acute exacerbation. Continue with current inhalers. Congestive heart failure with preserved LVF. She will be continued with her usual medications. Her Lasix will be on hold. She will be getting a small amount of IV fluid. ALAINA on CKD Stage III ALAINA secondary to Dehydration. Secondary to poor oral intake.Will give small amount of IV F and monitor renal function. Resolved Hypertension. Blood pressure seems to be stable at this time. Continue current medication. Hypothyroidism. Continue with supplement. Hyperlipidemia. Continue with statin. Gastrointestinal prophylaxis with omeprazole. Deep venous thrombosis prophylaxis with subcutaneous heparin. Code status. Discussed with the son. She will be a full code. PT/OT evaluation Discussed with the Son on 11/16/16-wants his mom to be in a facility Vital Signs: Date Time Temp Pulse Resp B/P (MAP) Pulse Ox O2 Delivery O2 Flow Rate FiO2 11/17/16 14:07 82 133/75 (94) 11/17/16 12:01 37.2 80 20 114/69 (84) 90 Nasal Cannula 2.0 11/17/16 08:00 Nasal Cannula 2.0 11/17/16 07:53 37.2 87 22 136/74 (94) 91 Nasal Cannula 4.0 11/17/16 03:52 37.4 90 16 124/64 (84) 92 Nasal Cannula 2.0 11/17/16 00:09 37.0 79 16 119/71 (87) 98 Nasal Cannula 2.0 11/16/16 23:59 95 Nasal Cannula 2.0 11/16/16 19:32 36.7 82 16 157/73 (101) 95 Room Air 11/16/16 19:23 36.8 85 18 148/71 (96) 99 Room Air Lab Results: Results Past 24 Hours Test 11/16/16 17:01 11/16/16 19:57 11/17/16 05:45 11/17/16 07:40 Range/Units Bedside Glucose 106 135 113 70-90 mg/dl White Blood Count 9.42 4.8-10.8 K/uL Red Blood Count 2.83 4.2-5.4 M/uL Hemoglobin 9.2 12.0-16.0 g/dL Hematocrit 29.5 37-47 % Mean Corpuscular Volume 104.2 80-100 fL Mean Corpuscular Hemoglobin 32.5 25-34 pg Mean Corpuscular Hemoglobin Concent 31.2 32-36 g/dl RDW Standard Deviation 80.7 36.4-46.3 fL RDW Coefficient of Variation 21.3 11.5-14.5 % Platelet Count 135 130-400 K/uL Mean Platelet Volume 8.8 7.4-10.4 fL Test 11/17/16 11:49 Range/Units Bedside Glucose 74 70-90 mg/dl
[2016-11-17] MEDS: ACETAMINOPHEN 325 MG TAB PO PRN (21:44)
[2016-11-18 00:17] VITALS: BP 94/56; PULSE 77; TEMP 37.1; O2SAT 97
[2016-11-18] MEDS: HEPARIN SOD 5000 UNIT/0.5 ML CARP SQ SCH ×3 (00:47→15:22)
[2016-11-18] MEDS: LEVOTHYROXINE 137 MCG TAB PO SCH (05:25)
[2016-11-18] MEDS: SILDENAFIL CITRATE 20 MG TAB PO SCH ×3 (07:28→20:50)
[2016-11-18] MEDS: FLUTICASONE/SALMETEROL 250/50 (ADVAIR) 14 PUFF/1 INHALER INH SCH ×2 (07:28→20:45)
[2016-11-18] MEDS: SPIRONOLACTONE 25 MG TAB PO SCH (07:28)
[2016-11-18] MEDS: POTASSIUM CHLORIDE 20 MEQ TABCR PO SCH ×2 (07:29→20:49)
[2016-11-18] MEDS: ROSUVASTATIN CALCIUM 20 MG TAB PO SCH (07:29)
[2016-11-18] MEDS: CARVEDILOL 25 MG TAB PO SCH ×2 (07:29→20:49)
[2016-11-18] MEDS: LORAZEPAM 0.5 MG TAB PO SCH ×2 (07:29→20:47)
[2016-11-18] MEDS: LORATADINE 10 MG TAB PO PRN ×2 (07:30→20:48)
[2016-11-18] MEDS: PROMETHAZINE HCL 25 MG TAB PO SCH ×2 (07:30→20:49)
[2016-11-18] MEDS: PANTOprazole SOD 40 MG TAB PO SCH (07:30)
[2016-11-18] MEDS: CHOLECALCIFEROL 1000 INTER.UNIT TAB PO SCH (07:31)
[2016-11-18] MEDS: ASPIRIN 81 MG ECTAB PO SCH (07:31)
[2016-11-18] MEDS: CEPHALEXIN MONOHYDRATE 250 MG CAP PO SCH ×3 (07:31→20:51)
[2016-11-18] MEDS: CYANOCOBALAMIN 500 MCG TAB (VIT B-12) PO SCH (07:31)
[2016-11-18] MEDS: DICLOFENAC SOD 1% GEL 100 GM TUBE EXT SCH ×4 (07:32→20:48)
[2016-11-18 07:58] VITALS: BP 121/62; PULSE 80; TEMP 36.9; O2SAT 99
[2016-11-18] MEDS: TRAMADOL HCL 50 MG TAB PO PRN ×3 (08:25→22:02)
[2016-11-18] MEDS: INSULIN ASPART 100 UNITS/ML 3 ML PEN SC SCH ×4 (08:28→20:58)
[2016-11-18 12:02] VITALS: BP 103/64; PULSE 79; TEMP 37.2; O2SAT 96
[2016-11-18 14:58] VITALS: BP 132/74; PULSE 83; TEMP 37; O2SAT 92
[2016-11-18] MEDS: MoRPHine SULFATE 2 MG/ML CARP IV PRN (15:51)
[2016-11-18] MEDS: ACETAMINOPHEN 325 MG TAB PO PRN ×2 (17:00→20:48)
[2016-11-18 19:34] VITALS: BP 101/61; PULSE 80; TEMP 37; O2SAT 98
--- NOTE | 2016-11-18 22:39 | Progress Note ---
Internal Med Progress Note Date of Service: Nov 18, 2016. Provider Documentation: SUBJECTIVE: The patient was sen and examined Feels a lot better today Still has the frequency Complains of swelling and redness of the right forearm No Traume OBJECTIVE: Vital Signs-as noted below Exam: General-no distress at rest Eyes-normal ENT-normal Neck-supple Lungs-Clear to ausucltate bilaterally Heart-Regular,no murmur Abdomen-Benign,no manisha,bowel sound present Extremities-No edema Right Forearm is swelled at the upper part with redness ,warmth and minimally tender Neuro-AAOx3 Lab data as noted below. ASSESSMENT & PLAN: Swelling of the right Forearm Doubt any infective process Elevate the Arm over a pillow Warm compression Anemia Hb dropped to 7.7 Will give 1 unit of PRBC Hb 9.2 today 11/17/16 Urinary frequency with possible urinary tract infection. Urine Culture is positive for E Coli Sensitivity -Pansensitive Pt is already feeling better Continue with Physical therapy Will start Keflex Denies any symptoms Questionable change in mental status with history of lung cancer, Undergoing chemo. She is in denial. 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 She does not have any acute symptoms at this time. Confusion resolved No recurrence Chronic obstructive pulmonary disease, severe, no acute exacerbation. Continue with current inhalers. No wheezing Congestive heart failure with preserved LVF. She will be continued with her usual medications. Her Lasix will be on hold. She will be getting a small amount of IV fluid. ALAINA on CKD Stage III ALAINA secondary to Dehydration. Secondary to poor oral intake.Will give small amount of IV F and monitor renal function. Resolved Hypertension. Blood pressure seems to be stable at this time. Continue current medication. Hypothyroidism. Continue with supplement. Hyperlipidemia. Continue with statin. Gastrointestinal prophylaxis with omeprazole. Deep venous thrombosis prophylaxis with subcutaneous heparin. Code status. Discussed with the son. She will be a full code. PT/OT evaluation Discussed with the Son on 11/16/16-wants his mom to be in a facility Likely to be transferred to a facility tomorrow. Vital Signs: Date Time Temp Pulse Resp B/P (MAP) Pulse Ox O2 Delivery O2 Flow Rate FiO2 11/18/16 19:34 37.0 80 18 101/61 (74) 98 Nasal Cannula 2.0 11/18/16 16:00 Nasal Cannula 2.0 11/18/16 14:58 37.0 83 18 132/74 (93) 92 Nasal Cannula 2.0 11/18/16 12:02 37.2 79 18 103/64 (77) 96 Nasal Cannula 11/18/16 12:01 Nasal Cannula 11/18/16 08:00 Nasal Cannula 2.0 11/18/16 07:58 36.9 80 20 121/62 (81) 99 Nasal Cannula 11/18/16 00:17 37.1 77 20 94/56 (69) 97 Nasal Cannula 2.0 11/18/16 00:00 Nasal Cannula 2.0 Lab Results: Results Past 24 Hours Test 11/18/16 07:48 11/18/16 11:53 11/18/16 16:34 11/18/16 19:55 Range/Units Bedside Glucose 111 101 101 167 70-90 mg/dl
[2016-11-18 23:54] VITALS: BP 118/67; PULSE 76; TEMP 36.7; O2SAT 98
[2016-11-19] MEDS: ACETAMINOPHEN 325 MG TAB PO PRN ×3 (00:14→11:22)
[2016-11-19 04:07] VITALS: BP 111/61; PULSE 72; TEMP 36.8; O2SAT 99
[2016-11-19] MEDS: LEVOTHYROXINE 137 MCG TAB PO SCH (06:40)
[2016-11-19] MEDS: DICLOFENAC SOD 1% GEL 100 GM TUBE EXT SCH (07:10)
[2016-11-19 08:09] VITALS: BP 136/76; PULSE 76; TEMP 36.9; O2SAT 92
[2016-11-19] MEDS: FLUTICASONE/SALMETEROL 250/50 (ADVAIR) 14 PUFF/1 INHALER INH SCH (08:15)
[2016-11-19] MEDS: SPIRONOLACTONE 25 MG TAB PO SCH (08:15)
[2016-11-19] MEDS: CARVEDILOL 25 MG TAB PO SCH (08:16)
[2016-11-19] MEDS: CYANOCOBALAMIN 500 MCG TAB (VIT B-12) PO SCH (08:16)
[2016-11-19] MEDS: CHOLECALCIFEROL 1000 INTER.UNIT TAB PO SCH (08:16)
[2016-11-19] MEDS: ROSUVASTATIN CALCIUM 20 MG TAB PO SCH (08:16)
[2016-11-19] MEDS: LORAZEPAM 0.5 MG TAB PO SCH (08:16)
[2016-11-19] MEDS: POTASSIUM CHLORIDE 20 MEQ TABCR PO SCH (08:17)
[2016-11-19] MEDS: CEPHALEXIN MONOHYDRATE 250 MG CAP PO SCH (08:17)
[2016-11-19] MEDS: SILDENAFIL CITRATE 20 MG TAB PO SCH (08:17)
[2016-11-19] MEDS: PROMETHAZINE HCL 25 MG TAB PO SCH (08:17)
[2016-11-19] MEDS: ASPIRIN 81 MG ECTAB PO SCH (08:17)
[2016-11-19] MEDS: PANTOprazole SOD 40 MG TAB PO SCH (08:17)
[2016-11-19] MEDS: INSULIN ASPART 100 UNITS/ML 3 ML PEN SC SCH (08:23)
[2016-11-19] MEDS: HEPARIN SOD 5000 UNIT/0.5 ML CARP SQ SCH ×2 (08:23)
--- NOTE | 2016-11-19 08:55 | Progress Note ---
Internal Med Progress Note Date of Service: Nov 19, 2016. Provider Documentation: SUBJECTIVE: The patient was sen and examined Feels a lot better today Still has the frequency No more swelling and or redness of the right UE Denies any other symptoms Ready to be discharged OBJECTIVE: Vital Signs-as noted below Exam: General-no distress at rest Eyes-normal ENT-normal Neck-supple Lungs-Clear to ausucltate bilaterally Heart-Regular,no murmur Abdomen-Benign,no manisha,bowel sound present Extremities-No edema Right Forearm is swelled at the upper part with redness ,warmth and minimally tender No significant abnormality in right UE Neuro-AAOx3 No focal neuro deficit Lab data as noted below. ASSESSMENT & PLAN: Swelling of the right Forearm Doubt any infective process Elevate the Arm over a pillow Warm compression Resolved Anemia Hb dropped to 7.7 Will give 1 unit of PRBC Hb 9.2 today 11/17/16 No more symptoms Urinary frequency with possible urinary tract infection. Urine Culture is positive for E Coli Sensitivity -Pansensitive Pt is already feeling better Continue with Physical therapy Will start Keflex Denies any symptoms Will finish the course Questionable change in mental status with history of lung cancer, Undergoing chemo. She is in denial. 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 She does not have any acute symptoms at this time. Confusion resolved No recurrence Chronic obstructive pulmonary disease, severe, no acute exacerbation. Continue with current inhalers. No wheezing Continue Home Oxygen Congestive heart failure with preserved LVF. She will be continued with her usual medications. Her Lasix will be on hold. She will be getting a small amount of IV fluid. Resume Lasix ALAINA on CKD Stage III ALAINA secondary to Dehydration. Secondary to poor oral intake.Will give small amount of IV F and monitor renal function. Resolved Hypertension. Blood pressure seems to be stable at this time. Continue current medication. Hypothyroidism. Continue with supplement. Hyperlipidemia. Continue with statin. Gastrointestinal prophylaxis with omeprazole. Deep venous thrombosis prophylaxis with subcutaneous heparin. Code status. Discussed with the son. She will be a full code. PT/OT evaluation Discussed with the Son on 11/16/16-wants his mom to be in a facility Discharge today Vital Signs: Date Time Temp Pulse Resp B/P (MAP) Pulse Ox O2 Delivery O2 Flow Rate FiO2 11/19/16 08:09 36.9 76 18 136/76 (96) 92 Room Air 11/19/16 04:07 36.8 72 18 111/61 (78) 99 Nasal Cannula 2.0 11/19/16 00:35 Nasal Cannula 2.0 11/18/16 23:54 36.7 76 20 118/67 (84) 98 Nasal Cannula 2.0 11/18/16 19:34 37.0 80 18 101/61 (74) 98 Nasal Cannula 2.0 11/18/16 16:00 Nasal Cannula 2.0 11/18/16 14:58 37.0 83 18 132/74 (93) 92 Nasal Cannula 2.0 11/18/16 12:02 37.2 79 18 103/64 (77) 96 Nasal Cannula 11/18/16 12:01 Nasal Cannula Lab Results: Results Past 24 Hours Test 11/18/16 11:53 11/18/16 16:34 11/18/16 19:55 11/19/16 07:46 Range/Units Bedside Glucose 101 101 167 114 70-90 mg/dl
[2016-11-19] MEDS ORDERED: LCTX PO (10:35)
[2016-11-19] MEDS ORDERED: KFL250 PO (10:35)
[2016-11-19] MEDS ORDERED: TRAM-10 PO (10:36)
--- NOTE | 2016-11-19 10:39 | Discharge Instructions ---
Discharge Instructions Date of Service Nov 19, 2016. Admission Reason for Admission: Mike, Carcinoma Of Lung, Uti Discharge Discharge Diagnosis / Problem: UTI,Ca of the Lung with Ongoing Chemo,COPD,CHF Discharge Goals Goal(s): Prevent Disease Progression Activity Recommendations Activity Level: Up Ad Neena, Assistance Required Therapies: Physical Therapy, Occupational Therapy . Additional Information Patient informed of condition: Yes Advance Directives: No DNR: No Level of Care: Skilled Communicable Disease: No Prognosis: Stable Oxygen at (LPM): 2 Liters /min via NC Syed Catheter: No Instructions / Follow-Up Instructions / Follow-Up Please make an appointment with your PCP in 1 week following discharge from the Facility.Keep regular appointment with your Oncologist Current Hospital Diet Patient's current hospital diet: Diabetes Type 2 Diet Discharge Diet Recommended Diet: Diabetes Type 2 Diet Fluid Restriction: 1500 ml (6 cups) Pending Studies Studies pending at discharge: no Laboratory Results Hemoglobin A1c Test 11/15/16 05:36 Range/Units Estimated Average Glucose 126 mg/dl Hemoglobin A1c 6.0 H 4.5-5.6 % Medical Emergencies . Who to Call and When: Medical Emergencies: If at any time you feel your situation is an emergency, please call 911 immediately. . Non-Emergent Contact Non-Emergency issues call your: Primary Care Provider . Past History Medical & Surgical History: (1) Anemia (2) Epigastric abdominal pain (3) UTI (urinary tract infection) (4) MIKE (acute kidney injury) (5) Carcinoma, lung (6) Altered mental status (7) COPD (chronic obstructive pulmonary disease) (8) DM2 (diabetes mellitus, type 2) (9) Hypothyroid (10) Pulmonary hypertension (11) History of total abdominal hysterectomy (12) H/O endarterectomy (13) S/P thoracentesis (14) S/p pleurectomy and pleurodesis . "Provider Documentation" section prepared by Paresh Keenan. . Core Measure Problem Core Measures: None
[2016-11-19 10:48] VITALS: BP 136/76; PULSE 76; TEMP 36.9; O2SAT 92
--- NOTE | 2016-11-19 11:00 | Discharge Summary ---
Discharge Summary Date of Service Nov 19, 2016. Discharge Summary Admission Date: Nov 14, 2016 at 15:57 Discharge Date: Nov 19, 2016 Discharge Disposition: [facility] facility Principal Diagnosis: UTI,Ca of the Lung with Ongoing Chemo,COPD,CHF Secondary Diagnoses/Problems: Please see H&P and Hospital Progress note Medication Reconciliation New Medications: Lactobacillus Acidophilus (Lactinex) Tab 2 TAB PO BID, #30 TAB Cephalexin Monohydrate (Cephalexin) 250 Mg Cap 250 MG PO TID for 2 Days, #6 CAP Continued Medications: Aspirin Enteric Coated (Ecotrin Or Generic) 81 Mg Tab 81 MG PO QAM, TAB Carvedilol (Coreg) 25 Mg Tab 25 MG PO BID, TAB Cholecalciferol (Vitamin D3) 1,000 Unit Tab 1000 UNITS PO QAM Cyanocobalamin (Vitamin B-12) 1,000 Mcg Tab 1000 MCG PO QAM, 0 Refills Docusate Sodium (Docusate Sodium) 100 Mg Cap 100 MG PO BID PRN for Constipation Fluticasone Prop/Salmeterol (Advair Diskus 250/50 60 Dose) 1 Ea Aerp 1 PUFF INH BID PRN for , INHALER Fluticasone Propionate (Nasal) (Flonase Allergy Relief) 50 Mcg/Act Spr 2 SPRAY LATRICE DAILY PRN for Furosemide (Lasix) 40 Mg Tab 40 MG PO BID, TAB Glipizide (Glipizide) 5 Mg Tab 5 MG PO QAM Hydralazine Hcl (Apresoline) 50 Mg Tab 75 MG PO TID, TAB Iron-Vitamin C (Vitron-C) 1 Tab Tab 1 TAB PO DAILY Levothyroxine Sodium (Levothyroxine Sodium) 137 Mcg Tab 137 MCG PO QAM Loratadine (Claritin) 10 Mg Tab 10 MG PO DAILY PRN for , TAB Lorazepam (Ativan) 0.5 Mg Tab 0.5 MG PO BID, TAB Omeprazole (Prilosec) 40 Mg Cap 40 MG PO QAM, CAP Ondansetron Hcl (Zofran) 8 Mg Tab 8 MG PO BID, TAB Polyethylene (Miralax) 17 Gm Pow 17 GM PO DAILY PRN for Constipation Potassium Ext Rel (Klor-Con) 20 Meq Tabcr 20 MEQ PO BID, TAB Prochlorperazine Maleate (Compazine) 10 Mg Tab 10 MG PO Q6H PRN for Nausea, TAB Promethazine Hcl (Phenergan) 25 Mg Tab 25 MG PO BID, TAB Rosuvastatin Calcium (Crestor) 40 Mg Tab 40 MG PO QAM, TAB Sildenafil Citrate (Pulmonary (Sildenafil) 20 Mg Tab 20 MG PO TID Spironolactone (Aldactone) 25 Mg Tab 25 MG PO QAM, TAB Tramadol (Ultram) 50 Mg Tab 25 MG PO Q6 PRN for Pain for 10 Days, #20 TAB (This prescription has been renewed) Admission Information HPI (per Admitting provider): DATE OF ADMISSION: 11/14/2016 PRIMARY CARE PROVIDER: Dr. Verdugo. CHIEF COMPLAINT: Not feeling well since last night. 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 She has not had sleep since last evening and she has been wondering about. She is having frequency but no dysuria. She feels feverish but did not take her temperature; nauseous, no vomiting, and no diarrhea. She was brought in by her son with these complaints. In the ER, she was hemodynamically stable. She is in denial for her lung cancer and also ongoing treatment. She did not have any acute distress and her blood counts remained fairly unremarkable. The UA did show possible infection; and creatinine was elevated to 1.50. From that point, she was admitted to medical floor for continuation of care. 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 PAST SURGICAL HISTORY: Significant for total hysterectomy, left carotid endarterectomy, Pleural biopsy during last admission. FAMILY HISTORY: Significant that sister has diabetes and mother did have heart disease. SOCIAL HISTORY: She is a . She lives alone. She quit smoking in 2007 with a [id number] history of smoking. She does not use any alcohol and she has been ambulant. REVIEW OF SYSTEMS: A total of 10-point review of system unremarkable except those mentioned in the history of present complaint. ALLERGIES: NKDA. MEDICATIONS: She has been on aspirin 21 mg daily, Coreg 25 mg b.i.d., vitamin D 1000 units daily, vitamin B12 1000 mcg daily, docusate sodium 100 mg b.i.d., Advair Diskus 250/50 one puff b.i.d., Flonase nasal spray 2 sprays daily, furosemide 40 mg daily, glipizide 5 mg daily, hydralazine 75 mg 3 times daily, levothyroxine 137 mcg daily, Claritin 10 mg daily, Ativan 0.5 mg b.i.d. as needed, Zofran 8 mg daily, MiraLax 17 grams daily, potassium 20 mEq b.i.d., Compazine 10 mg q. 6 hourly p.r.n., Phenergan 25 mg b.i.d., Crestor 40 mg daily, sildenafil citrate 20 mg tablet t.i.d., Aldactone 25 mg in the morning, Ultram 50 mg daily, omeprazole 40 mg daily, and also by Vitron-C 1 tablet daily. PHYSICAL EXAMINATION: GENERAL: On examination in the Emergency Room, she was not having any acute distress. VITAL SIGNS: Temperature 37.0, pulse was 90, blood pressure 164/84, saturation 97% on 2 liters nasal cannula. HEENT: Unremarkable. NECK: Supple. No JVD, no bruit. CHEST: Clear to auscultate bilaterally with decreased breath sounds both sides. HEART: S1, S2 regular. ABDOMEN: Soft, benign, nontender, no organomegaly. Bowel sounds present. EXTREMITIES: Trace to 1+ edema bilaterally. MUSCULOSKELETAL SYSTEM: Did not show any acute arthritis. CENTRAL NERVOUS SYSTEM: She was alert, awake, oriented x3. She did not have any focal neurological deficits on examination. She is generally weak. LABORATORY DATA: Noted today white count was 9.26, H&H 8.1/26.4, platelet was 164. Sodium 138, potassium 4.0, chloride 100, carbon dioxide 30, BUN 31, creatinine 1.50. Random glucose 99 and lactate and LFTs unremarkable. Albumin 2.6, lipase 1.168. PT, PTT normal. Toxicology - acetaminophen 6, salicylates 1.7. UA examination showed Leuk small, white count 10-30, bacteria 1+. IMAGING DATA: Chest x-ray reported as no acute cardiopulmonary disease, chronic hilar fullness known mediastinal mass and adenopathy, better evaluated on CAT scan from 02/27/2016. X-ray of the shoulder - finding concerning of osseous lesion in the proximal right humeral metaphysis. Concerning of osseous metastatic disease. CT of the head - no acute intracranial process. EKG was in sinus rhythm with occasional premature ventricular complexes, 84 per minute, right bundle branch block with associated ST-T wave changes. Troponin was less than 0.03. Ammonia was 10. IMPRESSION AND PLAN: 1. Urinary frequency with possible urinary tract infection. The patient will be admitted to medical floor. Urine culture will be sent and she was started with intravenous ceftriaxone. She was advised to drink more fluid. 2. Questionable change in mental status with history of lung cancer, undergoing chemo. She is in denial. 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 She does not have any acute symptoms at this time. 3. Chronic obstructive pulmonary disease, severe, no acute exacerbation. Continue with current inhalers. 4.Congestive heart failure with preserved LVF. She will be continued with her usual medications. Her Lasix will be on hold. She will be getting a small amount of IV fluid. 5.ALAINA secondary to Dehydration.Secondary to poor oral intake.Will give small amount of IV F and monitor renal function. 6. Hypertension. Blood pressure seems to be stable at this time. Continue current medication. 7. Hypothyroidism. Continue with supplement. 8. Hyperlipidemia. Continue with statin. 9. Gastrointestinal prophylaxis with omeprazole. 10. Deep venous thrombosis prophylaxis with subcutaneous heparin. 11. Code status. Discussed with the son. She will be a full code. In my clinical judgment, the beneficiary meets criteria as per CMS for 2-midnight stay in the hospital. Hospital Course Swelling of the right Forearm Doubt any infective process Elevate the Arm over a pillow Warm compression Resolved Anemia Hb dropped to 7.7 Will give 1 unit of PRBC Hb 9.2 today 11/17/16 No more symptoms Urinary frequency with possible urinary tract infection. Urine Culture is positive for E Coli Sensitivity -Pansensitive Pt is already feeling better Continue with Physical therapy Will start Keflex Denies any symptoms Will finish the course Questionable change in mental status with history of lung cancer, Undergoing chemo. She is in denial. 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 She does not have any acute symptoms at this time. Confusion resolved No recurrence Chronic obstructive pulmonary disease, severe, no acute exacerbation. Continue with current inhalers. No wheezing Continue Home Oxygen Congestive heart failure with preserved LVF. She will be continued with her usual medications. Her Lasix will be on hold. She will be getting a small amount of IV fluid. Resume Lasix ALAINA on CKD Stage III ALAINA secondary to Dehydration. Secondary to poor oral intake.Will give small amount of IV F and monitor renal function. Resolved Hypertension. Blood pressure seems to be stable at this time. Continue current medication. Hypothyroidism. Continue with supplement. Hyperlipidemia. Continue with statin. Gastrointestinal prophylaxis with omeprazole. Deep venous thrombosis prophylaxis with subcutaneous heparin. Code status. Discussed with the son. She will be a full code. PT/OT evaluation Discussed with the Son on 11/16/16-wants his mom to be in a facility Discharge today Total time spent on discharge = 35 minutes This includes examination of the patient, discharge planning, medication reconciliation, and communication with other providers. Discharge Instructions Date of Service Nov 19, 2016. Admission Reason for Admission: Alaina, Carcinoma Of Lung, Uti Discharge Discharge Diagnosis / Problem: UTI,Ca of the Lung with Ongoing Chemo,COPD,CHF Discharge Goals Goal(s): Prevent Disease Progression Activity Recommendations Activity Level: Up Ad Neena, Assistance Required Therapies: Physical Therapy, Occupational Therapy . Additional Information Patient informed of condition: Yes Advance Directives: No DNR: No Level of Care: Skilled Communicable Disease: No Prognosis: Stable Oxygen at (LPM): 2 Liters /min via NC Syed Catheter: No Instructions / Follow-Up Instructions / Follow-Up Please make an appointment with your PCP in 1 week following discharge from the Facility.Keep regular appointment with your Oncologist Current Hospital Diet Patient's current hospital diet: Diabetes Type 2 Diet Discharge Diet Recommended Diet: Diabetes Type 2 Diet Fluid Restriction: 1500 ml (6 cups) Pending Studies Studies pending at discharge: no Laboratory Results Hemoglobin A1c Test 11/15/16 05:36 Range/Units Estimated Average Glucose 126 mg/dl Hemoglobin A1c 6.0 H 4.5-5.6 % Medical Emergencies . Who to Call and When: Medical Emergencies: If at any time you feel your situation is an emergency, please call 911 immediately. . Non-Emergent Contact Non-Emergency issues call your: Primary Care Provider . Past History Medical & Surgical History: (1) Anemia (2) Epigastric abdominal pain (3) UTI (urinary tract infection) (4) ALAINA (acute kidney injury) (5) Carcinoma, lung (6) Altered mental status (7) COPD (chronic obstructive pulmonary disease) (8) DM2 (diabetes mellitus, type 2) (9) Hypothyroid (10) Pulmonary hypertension (11) History of total abdominal hysterectomy (12) H/O endarterectomy (13) S/P thoracentesis (14) S/p pleurectomy and pleurodesis . "Provider Documentation" section prepared by Paresh Keenan. . Core Measure Problem Core Measures: None <Electronically signed by Paresh Keenan M.D.> Additional Copies To Callie Verdugo M.D.
== END 2016-11-19 11:30 | DRG 690 ==
LOC: C.EDB 08:39 → C.4E 15:57 → ENRESERV 16:29 → EDBEDREQ 16:53
PROVIDERS: ADMIT Internal Medicine; ATTEND Internal Medicine
DX: N39.0 Urinary tract infection, site not specified (principal); N17.9 Acute kidney failure, unspecified; C34.91 Malignant neoplasm of unspecified part of right bronchus or lung; I13.0 Hypertensive heart and chronic kidney disease with heart failure and stage 1 through stage 4 chronic kidney disease, or unspecified chronic kidney disease; B96.20 Unspecified Escherichia coli [E. coli] as the cause of diseases classified elsewhere; E86.0 Dehydration; R22.31 Localized swelling, mass and lump, right upper limb; R41.0 Disorientation, unspecified; I50.9 Heart failure, unspecified; E11.22 Type 2 diabetes mellitus with diabetic chronic kidney disease; N18.3 Chronic kidney disease, stage 3 (moderate); E03.9 Hypothyroidism, unspecified; J44.9 Chronic obstructive pulmonary disease, unspecified; E78.5 Hyperlipidemia, unspecified; D64.9 Anemia, unspecified; Z87.891 Personal history of nicotine dependence; Z79.82 Long term (current) use of aspirin; Z79.51 Long term (current) use of inhaled steroids; Z79.84 Long term (current) use of oral hypoglycemic drugs; Z79.891 Long term (current) use of opiate analgesic; Z79.899 Other long term (current) drug therapy

== ENCOUNTER 2016-12-14 12:56 | Inpatient (IN) | payer OTHER ==
[~2016-12-14] VITALS: Ht 152.4 cm; Wt 73.0 kg
[~2016-12-14 12:56] MED LIST changes: +FERRTAB18 PO; +GLC5 PO; -GLIP10TA9 PO; +KFL250 PO; +LCTX PO; -PRED20TA PO; +PROM25TA9 PO
--- NOTE | 2016-12-14 13:48 | EMERGENCY ROOM VISIT NOTE ---
History Report prepared by Lazaro: Caryn Norwood Under the Supervision of: Dr. Blake Medina M.D. First contact with patient: 13:30 Chief Complaint: OTHER COMPLAINT Stated Complaint: ALTERED MENTAL STATUS History of Present Illness The patient is a 76 year old female who presents to the Emergency Room with complaints of constant AMS for the past couple of days. [facility] She was sent to the [facility] today because she has been hallucinating for a couple of days. The clinic sent the patient to the ED for further evaluation via EMS. The patient reports a red, warm, painful right arm. She states that this has been going on for the past 1-2 weeks. Movement exacerbates her pain. She rates her current pain as a 5/10 in severity. The patient denies any fevers, chills, headache, chest pain, shortness of breath, urinary symptoms, and weakness. She is on 2L of O2 at all times. 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 Review of Systems As above. All other systems reviewed were negative unless otherwise stated in history. At least 10 were reviewed Past Medical & Surgical Medical Problems: (1) ALAINA (acute kidney injury) (2) Cancer of lung (3) Carcinoma, lung (4) Carotid stenosis (5) COPD (chronic obstructive pulmonary disease) (6) DM2 (diabetes mellitus, type 2) (7) Hypertension (8) Hypertensive heart disease (9) Hypothyroid (10) Kidney disease (11) Lung cancer (12) Nocturnal hypoxemia (13) Pulmonary hypertension (14) Small cell carcinoma of right lung (15) UTI (urinary tract infection) Surgical Problems: (1) H/O endarterectomy (2) History of total abdominal hysterectomy (3) S/p pleurectomy and pleurodesis (4) S/P thoracentesis Old medical records were reviewed. Nurse's notes were reviewed and I agree with. Family History Diabetes mellitus SISTER Heart disease MOTHER Social History Smoking Status: Former Smoker Alcohol Use: none Drug Use: none Marital Status: Housing Status: lives alone Occupation Status: unemployed Current/Historical Medications Scheduled Aspirin Enteric Coated (Ecotrin Or Generic), 81 MG PO QAM Carvedilol (Coreg), 25 MG PO BID Cephalexin Monohydrate (Keflex), 500 MG PO QID Cholecalciferol (Vitamin D3), 1,000 UNITS PO QAM Cyanocobalamin (Vitamin B-12), 1,000 MCG PO QAM Furosemide (Lasix), 20 MG PO BID Glipizide (Glipizide), 5 MG PO QAM Hydralazine Hcl (Apresoline), 50 MG PO TID Iron-Vitamin C (Vitron-C), 1 TAB PO DAILY Levothyroxine Sodium (Levothyroxine Sodium), 150 MCG PO DAILY Lorazepam (Ativan), 0.5 MG PO BID Omeprazole (Prilosec), 40 MG PO QAM Ondansetron Hcl (Zofran), 8 MG PO BID Potassium Ext Rel (Klor-Con), 20 MEQ PO BID Promethazine Hcl (Phenergan), 25 MG PO BID Rosuvastatin Calcium (Crestor), 40 MG PO QAM Saccharomyces Boulardii (Probiotic), 250 MG PO BID Sildenafil Citrate (Pulmonary (Sildenafil), 20 MG PO TID Scheduled PRN Acetaminophen (Tylenol), 650 MG PO Q6 PRN for Pain or Fever Acetaminophen (Tylenol), 1 SUPP MD Q6 PRN for Pain or Fever Bisacodyl (Dulcolax), 1 SUPP MD UD PRN for Constipation Diclofenac Sodium (Topical) (Voltaren 1% Top Gel), 1 GM TD Q6 PRN for Pain Docusate Sodium (Docusate Sodium), 100 MG PO DAILY PRN for Constipation Fluticasone Prop/Salmeterol (Advair Diskus 250/50 60 Dose), 1 PUFF INH BID PRN for Fluticasone Propionate (Nasal) (Flonase Allergy Relief), 2 SPRAY LATRICE DAILY PRN for Loratadine (Claritin), 10 MG PO DAILY PRN for Magnesium Hydroxide (Milk Of Magnesia), 30 ML PO UD PRN for Constipation Polyethylene (Miralax), 17 GM PO DAILY PRN for Constipation Prochlorperazine Maleate (Compazine), 10 MG PO Q6H PRN for Nausea Sodium Phosphates (Fleet Enema Six Pack), 1 APPLN MD UD PRN for Constipation Tramadol (Ultram), 25 MG PO Q6 PRN for Pain Allergies Coded Allergies: No Known Allergies (Verified , 12/14/16) Physical Exam Vital Signs Date Time Temp Pulse Resp B/P (MAP) Pulse Ox O2 Delivery O2 Flow Rate FiO2 12/14/16 17:09 74 12/14/16 15:03 68 20 127/60 97 Nasal Cannula 2.0 12/14/16 13:12 Nasal Cannula 3.0 12/14/16 13:09 72 12/14/16 13:06 37.2 91 20 117/61 98 Nasal Cannula 3.0 Physical Exam General: Chronically-ill appearing older female in no acute distress, alert to person and place but not date. HEENT: Normal cephalic atraumatic. Pupils are equal round and reactive to light. Extraocular movements are intact. Oropharynx is pink with moist mucous membranes. No swelling of the mouth lips or tongue. Neck: Supple with a midline trachea. No meningeal signs or stiffness, no JVD or bruits. No Stridor. Chest: Clear to auscultation bilaterally. No wheezes or rhonchi. No increased work of breathing. Heart: regular rate and rhythm. Abdomen: Soft nontender, nondistended without rebound guarding or rigidity. Extremities: Red swollen right arm near the elbow, very tender with palpation and movement, no fluctuance. 1+ lower extremity edema. Spine/Back. Non tender to palpation. No CVA tenderness Skin: Good turgor without rashes. Neurologic exam: Cranial nerves two through 12 are intact. Motor and sensation are intact and symmetrical throughout. Medical Decision & Procedures ER Provider Diagnostic Interpretation: Radiology results as stated below per my review and radiologist interpretation: R ELBOW MIN 3 VIEWS ROUTINE HISTORY: 76 years-old Female right elbow pain and swelling acute right elbow pain and swelling COMPARISON: None available TECHNIQUE: 3 views of the right elbow FINDINGS: The lateral film is limited secondary to oblique positioning. No acute fracture or dislocation identified. Mild degenerative changes are noted about the elbow. The bones are mildly demineralized. Mild soft tissue swelling is noted about the imaged right upper extremity. Nonspecific mild periosteal thickening is noted about the dorsal aspect of the mid to distal humeral diaphysis. IMPRESSION: 1. Mild degenerative changes without acute fracture or dislocation. 2. Mild nonspecific periosteal thickening of the dorsal mid to distal humeral diaphysis. The above report was generated using voice recognition software. It may contain grammatical, syntax or spelling errors. Electronically signed by: Nishant Skelton M.D. 12/14/2016 2:15 PM Dictated Date/Time: 12/14/2016 2:13 PM CHEST ONE VIEW PORTABLE CLINICAL HISTORY: 76 years-old Female presenting with CHEST PAIN. TECHNIQUE: Portable upright AP view of the chest was obtained. COMPARISON: 11/14/2016. FINDINGS: Right internal jugular Mediport terminates in the SVC. Cardiomediastinal silhouette unchanged with prominence of the ashlyn. Ovoid density projecting over the right apex corresponds to the focal right apical consolidation best seen on prior chest CT from 02/27/2016. Coarsened lung markings in the right lung unchanged from prior. No new focal infiltrate. No large effusion or pneumothorax. Suggestion of kyphosis of the thoracic spine. Upper abdomen normal. IMPRESSION: 1. Stable examination with right apical consolidation in chronic hilar fullness which correlates to known mediastinal mass/adenopathy better evaluated on prior CT. No new focal infiltrate. Electronically signed by: David Wood M.D. 12/14/2016 2:10 PM Dictated Date/Time: 12/14/2016 2:06 PM Laboratory Results 12/14/16 14:19 Red Blood Count 2.80, Mean Corpuscular Volume 104.6, Mean Corpuscular Hemoglobin 30.7, Mean Corpuscular Hemoglobin Concent 29.4, Mean Platelet Volume 9.2, Neutrophils (%) (Auto) 79.1, Lymphocytes (%) (Auto) 9.1, Monocytes (%) ( Auto) 8.9, Eosinophils (%) (Auto) 2.4, Basophils (%) (Auto) 0.2, Neutrophils # ( Auto) 8.90, Lymphocytes # (Auto) 1.02, Monocytes # (Auto) 1.00, Eosinophils # ( Auto) 0.27, Basophils # (Auto) 0.02 12/14/16 14:19 Test 12/14/16 14:19 12/14/16 14:25 12/14/16 14:26 12/14/16 14:49 White Blood Count 11.24 K/uL (4.8-10.8) Red Blood Count 2.80 M/uL (4.2-5.4) Hemoglobin 8.6 g/dL (12.0-16.0) Hematocrit 29.3 % (37-47) Mean Corpuscular Volume 104.6 fL (80-100) Mean Corpuscular Hemoglobin 30.7 pg (25-34) Mean Corpuscular Hemoglobin Concent 29.4 g/dl (32-36) Platelet Count 132 K/uL (130-400) Mean Platelet Volume 9.2 fL (7.4-10.4) Neutrophils (%) (Auto) 79.1 % Lymphocytes (%) (Auto) 9.1 % Monocytes (%) (Auto) 8.9 % Eosinophils (%) (Auto) 2.4 % Basophils (%) (Auto) 0.2 % Neutrophils # (Auto) 8.90 K/uL (1.4-6.5) Lymphocytes # (Auto) 1.02 K/uL (1.2-3.4) Monocytes # (Auto) 1.00 K/uL (0.11-0.59) Eosinophils # (Auto) 0.27 K/uL (0-0.5) Basophils # (Auto) 0.02 K/uL (0-0.2) RDW Standard Deviation 71.3 fL (36.4-46.3) RDW Coefficient of Variation 18.4 % (11.5-14.5) Immature Granulocyte % (Auto) 0.3 % Immature Granulocyte # (Auto) 0.03 K/uL (0.00-0.02) Hypogranular Neutrophils 1+ Anisocytosis PRESENT Stomatocytes 1+ Anion Gap 7.0 mmol/L (3-11) Estimated GFR () 35.4 Estimated GFR (Non- 30.5 BUN/Creatinine Ratio 14.8 (10-20) Calcium Level 10.4 mg/dl (8.5-10.1) Total Bilirubin 0.3 mg/dl (0.2-1) Direct Bilirubin 0.1 mg/dl (0-0.2) Aspartate Amino Transf (AST/SGOT) 46 U/L (15-37) Alanine Aminotransferase (ALT/SGPT) 47 U/L (12-78) Alkaline Phosphatase 64 U/L (45-117) Total Protein 6.8 gm/dl (6.4-8.2) Albumin 2.4 gm/dl (3.4-5.0) Lipase 212 U/L (73-393) Bedside Lactic Acid Venous 0.91 mmol/L (0.90-1.70) Bedside Troponin I 0.080 ng/ml (0-0.045) Urine Color YELLOW Urine Appearance CLEAR (CLEAR) Urine pH 7.0 (4.5-7.5) Urine Specific [place] 1.011 (1.000-1.030) Urine Protein NEG (NEG) Urine Glucose (UA) NEG (NEG) Urine Ketones NEG (NEG) Urine Occult Blood NEG (NEG) Urine Nitrite NEG (NEG) Urine Bilirubin NEG (NEG) Urine Urobilinogen NEG (NEG) Urine Leukocyte Esterase NEG (NEG) Laboratory studies as stated above per my review. Medications Administered Medications (Trade) Dose Ordered Sig/Gilbert Route Start Time Stop Time Status Last Admin Dose Admin Vancomycin HCl 1750 mg/Sodium Chloride 535 ml @ 200 mls/hr ONE ONCE IV 12/14/16 16:00 12/14/16 18:40 12/14/16 16:57 200 MLS/HR Cefepime HCl 2000 mg/Syringe 20 ml @ 5 mls/min ONE ONCE IV 12/14/16 16:00 12/14/16 16:03 DC 12/14/16 16:57 5 MLS/MIN ECG Indication: altered mental status Rate (beats per minute): 69 Rhythm: normal sinus Findings: RBBB, no acute ischemic change, no ectopy Comparison ECG Date: 11/14/16 Change: PVCs are now absent. ED Course 1330: Past medical records reviewed. The patient was evaluated in room C5, and a complete history and physical examination were performed. 1530: I reassessed the patient at this time. She is resting comfortably. I discussed the results and treatment plan with the patient. I answered all pertaining questions that she had. She expressed understanding and verbalized agreement. 1533: I spoke Fatemeh Babcock PA-C. We discussed the patient's case. The patient will be evaluated by the [facility] for further management. 1600: Cefepime HCl 2000 mg IV, Vancomycin HCl 1750 mg/Sodium Chloride IV Medical Decision Differentials include, but are not limited to; sepsis, cancer complication, cellulitis, bursitis, UTI, electrolyte or metabolic abnormality. This patient comes in as described above. She was placed in room C5. She has a complex medical history. She has been more confused according to the intermediate. She was admitted for similar complaint about a month ago and had a UTI. On exam, her right arm is red and swollen this could certainly be the source of her confusion. she could have an infection although she has no vital signs to suggest sepsis or severe sepsis at this point. She had a sepsis workup obtained. She appears in no distress besides the elbow. EKG, chest x-ray, x- ray of the elbow, as well as an ultrasound the right upper extremity were obtained. Multiple blood tests including cardiac enzymes and lactic acid. She was reassessed frequently. We did access her port. Her white count is mildly elevated the rest of her labs showed no acute abnormalities she is chronic renal insufficiency. She's nothing to suggest pneumonia. Her EKG does not show any definite acute ischemic changes however her troponin is mildly elevated. Ultrasound of right upper extremity shows no DVT. X-rays shows some nonspecific periosteal thickening. I do not think she likely has osteomyelitis although that is in the differential. She could also have more of a bursitis or even a septic elbow. Due to her body habitus, she is difficult to examine. She was given IV vancomycin and IV cefepime as recommended and dose by the pharmacist. I have consult the [facility] hospitalist to do think she needs to be admitted for further treatment and evaluation. Medication Reconcilliation Current Medication List: was personally reviewed by me Blood Pressure Screening Patient's blood pressure: Normal blood pressure Consults Time Called: 1529 Consulting Physician: Fatemeh Babcock PA-C Returned Call: 1533 I spoke Fatemeh Babcock PA-C. We discussed the patient's case. The patient will be evaluated by the [facility] for further management. Impression Primary Impression: Altered mental status Additional Impression: Right arm cellulitis Scribe Attestation The scribe's documentation has been prepared under my direction and personally reviewed by me in its entirety. I confirm that the note above accurately reflects all work, treatment, procedures, and medical decision making performed by me. Departure Information Dispostion Being Evaluated By Hospitalist Referrals Tha Gallegos (PCP) Patient Instructions My [facility] Health Problem Qualifiers
--- NOTE | 2016-12-14 14:11 | DIAGNOSTIC IMAGING REPORT ---
CHEST ONE VIEW PORTABLE CLINICAL HISTORY: 76 years-old Female presenting with CHEST PAIN. TECHNIQUE: Portable upright AP view of the chest was obtained. COMPARISON: 11/14/2016. FINDINGS: Right internal jugular Mediport terminates in the SVC. Cardiomediastinal silhouette unchanged with prominence of the ashlyn. Ovoid density projecting over the right apex corresponds to the focal right apical consolidation best seen on prior chest CT from 02/27/2016. Coarsened lung markings in the right lung unchanged from prior. No new focal infiltrate. No large effusion or pneumothorax. Suggestion of kyphosis of the thoracic spine. Upper abdomen normal. IMPRESSION: 1. Stable examination with right apical consolidation in chronic hilar fullness which correlates to known mediastinal mass/adenopathy better evaluated on prior CT. No new focal infiltrate. Electronically signed by: David Wood M.D. 12/14/2016 2:10 PM Dictated Date/Time: 12/14/2016 2:06 PM
--- NOTE | 2016-12-14 14:17 | DIAGNOSTIC IMAGING REPORT ---
R ELBOW MIN 3 VIEWS ROUTINE HISTORY: 76 years-old Female right elbow pain and swelling acute right elbow pain and swelling COMPARISON: None available TECHNIQUE: 3 views of the right elbow FINDINGS: The lateral film is limited secondary to oblique positioning. No acute fracture or dislocation identified. Mild degenerative changes are noted about the elbow. The bones are mildly demineralized. Mild soft tissue swelling is noted about the imaged right upper extremity. Nonspecific mild periosteal thickening is noted about the dorsal aspect of the mid to distal humeral diaphysis. IMPRESSION: 1. Mild degenerative changes without acute fracture or dislocation. 2. Mild nonspecific periosteal thickening of the dorsal mid to distal humeral diaphysis. The above report was generated using voice recognition software. It may contain grammatical, syntax or spelling errors. Electronically signed by: Nishant Skelton M.D. 12/14/2016 2:15 PM Dictated Date/Time: 12/14/2016 2:13 PM
[2016-12-14 14:49] LABS: HEMATOCRIT 29.3 % (37-47); MEAN CELL VOLUME 104.6 fL (80-100); MEAN CORPUSCULAR HEMOGLOBIN 30.7 pg (25-34); MEAN CORPUSCULAR HGB CONC 29.4 g/dl (32-36); MEAN PLATELET VOLUME 9.2 fL (7.4-10.4); PLATELET COUNT 132 K/uL (130-400); WHITE BLOOD COUNT 11.24 K/uL (4.8-10.8)
[2016-12-14] MEDS ORDERED: BISA10SU38 PR (14:50)
[2016-12-14] MEDS ORDERED: CEPH500C2 PO (14:50)
[2016-12-14] MEDS ORDERED: ACET650S10 PR (14:50)
[2016-12-14] MEDS ORDERED: FURO-85 PO (14:50)
[2016-12-14] MEDS ORDERED: ACET-1311 PO (14:50)
[2016-12-14] MEDS ORDERED: LEVO150T9 PO (14:50)
[2016-12-14] MEDS ORDERED: SACC250C11 PO (14:50)
[2016-12-14] MEDS ORDERED: MOML PO (14:50)
[2016-12-14] MEDS ORDERED: SODI1ENE PR (14:50)
[2016-12-14] MEDS ORDERED: DICL1GEL12 TD (14:50)
[2016-12-14 14:59] LABS: URINE APPEARANCE CLEAR (CLEAR); URINE BILIRUBIN NEG (NEG); URINE COLOR YELLOW; URINE NITRITE NEG (NEG); URINE SPECIFIC GRAVITY 1.011 (1.000-1.030); UROBILINOGEN NEG (NEG)
[2016-12-14 15:00] LABS: ALT/SGPT 47 U/L (12-78); BLOOD UREA NITROGEN 24 mg/dl (7-18); BUN/CREATININE RATIO 14.8 (10-20); CALCIUM 10.4 mg/dl (8.5-10.1); CARBON DIOXIDE 37 mmol/L (21-32); CHLORIDE 93 mmol/L (98-107); CREATININE 1.61 mg/dl (0.60-1.20); GLUCOSE 81 mg/dl (70-99); POTASSIUM 3.6 mmol/L (3.5-5.1); SODIUM 137 mmol/L (136-145)
[2016-12-14 15:03] LABS: ALKALINE PHOSPHATASE 64 U/L (45-117); ANISOCYTOSIS PRESENT; AST/SGOT 46 U/L (15-37); BASO % 0.2 %; BASO ABS # 0.02 K/uL (0-0.2); COMPLETE YES; EOS % 2.4 %; IG% 0.3 %; LYMPH % 9.1 %; LYMPH ABS # 1.02 K/uL (1.2-3.4); MONO % 8.9 %; NEUT % 79.1 %; STOMATOCYTE 1+
[2016-12-14 15:04] LABS: MANUAL MICROSCOPIC REQUIRED? NO; REVIEW REQ? NO
[2016-12-14] MEDS ORDERED: VANCOMYCIN INJ 1,750 MG in SODIUM CHLORIDE 0.9% 500ML 500 ML IV ONE (16:00)
[2016-12-14] MEDS ORDERED: CEFEPIME IV 2,000 MG in SYRINGE 7.5 ML IV ONE (16:00)
--- NOTE | 2016-12-14 16:30 | DIAGNOSTIC IMAGING REPORT ---
R VENOUS DOPPLER UPR EXT UNIL HISTORY: Pain. Edema. eval for DVT COMPARISON STUDY: None. FINDINGS: The internal jugular vein is patent. There is normal flow within the subclavian vein. There is normal flow and compressibility within the left axillary, basilic, brachial, radial, ulnar, and visualized cephalic veins. IMPRESSION: No DVT within the upper extremity. Several small nonspecific nodes of the upper extremity The above report was generated using voice recognition software. It may contain grammatical, syntax or spelling errors. Electronically signed by: Lenny Bowser M.D. 12/14/2016 4:29 PM Dictated Date/Time: 12/14/2016 4:28 PM
[2016-12-14] MEDS ORDERED: CONSULT PHARMACY STA (16:51)
[2016-12-14] MEDS ORDERED: DEXTROSE 50% 50 ML SYR IV PRN (17:00)
[2016-12-14] MEDS ORDERED: GLUCOSE 10 TABS/TUBE PO PRN (17:00)
[2016-12-14] MEDS ORDERED: GLUCAGON FOR INJ 1 MG VIAL SQ PRN (17:00)
[2016-12-14] MEDS ORDERED: GLUCOSE 40% GEL 15 GM TUBE PO PRN (17:00)
--- NOTE | 2016-12-14 17:55 | DIAGNOSTIC IMAGING REPORT ---
HEAD WITHOUT CONTRAST (CT) CT DOSE: 687.98 mGy.cm HISTORY: Mental status change AMS TECHNIQUE: Multiaxial CT images of the head were performed without the use of intravenous contrast. A dose lowering technique was utilized adhering to the principles of ALARA. Comparison: None. Findings: The paranasal sinuses and mastoid air cells are clear. The calvarium and skull base are intact. The ventricles and sulci are within normal limits. There is no mass, hematoma, midline shift, or acute infarct. Impression: No acute intracranial abnormality. The above report was generated using voice recognition software. It may contain grammatical, syntax or spelling errors. Electronically signed by: Lenny Bowser M.D. 12/14/2016 5:54 PM Dictated Date/Time: 12/14/2016 5:53 PM
[2016-12-14 19:00] VITALS: BP 163/73; TEMP 37.1; Ht 152.4 cm; Wt 73.0 kg
[2016-12-14] MEDS ORDERED: CEFEPIME CONSULT ACTIVE PRN ×2 (19:30)
[2016-12-14] MEDS ORDERED: VANCOMYCIN CONSULT ACTIVE PRN (19:30)
[2016-12-14 20:13] VITALS: BP_SYST 116; BP_SYST 163; BP_DIAS 64; BP_DIAS 73; PULSE 82; TEMP 37.1; TEMP 37.2; O2SAT 90; O2SAT 91
[2016-12-14] MEDS: INSULIN ASPART 100 UNITS/ML 3 ML PEN SC SCH (20:19)
[2016-12-14] MEDS ORDERED: PATIENT'S HEIGHT AND/OR WEIGHT NEEDED SCH (20:45)
[2016-12-14 20:46] LABS: INR 1.1 (0.9-1.1); PROTHROMBIN TIME (PATIENT) 11.4 SECONDS (9.0-12.0)
--- NOTE | 2016-12-14 20:58 | History and Physical ---
History & Physical Date & Time of Service: Dec 14, 2016 at 20:29 Chief Complaint: Altered Mental Status, Right Arm Cellulitis Primary Care Physician: Tha Gallegos History of Present Illness Patient is a 76yo F [facility] resident with a PMH of Stage IV non-small cell lung cancer (currently receiving chemo), DM II, CKD, severe COPD, CHF (with preserved EF), HTN and HLD who was sent to ER from heme onc clinic for evaluation of altered mental status and a swollen R arm. Patient was dropped off at clinic appointment by [facility] transportation and was reportedly confused during appointment. Per clinic nursing note, was oriented to self and and year but not to location. Was mumbling about seeing bugs crawling, someone writing on the scott and seeing people with their eyes blacked out. Dr. Ortega sent patient to ER for further evaluation of hallucinations and visibly swollen R arm. Per discussion with [facility], patient was at baseline for mentation this morning. She is always oriented to self but not reliably to place or time. No formal diagnosis of dementia but care providers have noticed a steady decline in mentation. No recent medication changes with psychotropic effects. Patient complained of a painful R arm earlier this week and was started on PO Keflex on 12/09 for treatment of cellulitis. Venous doppler of R Arm was performed on 12/14 and was negative for DVT. Interview and discussed limited due to patient's mental status. Is alert and oriented to person but not to place or time. No apparent hallucinations. Does not know how she got to ER. Denies feeling confused. States that arm is less painful now. Unsure when pain started. Has no other current complaints on ROS. Denies fever, chills, headache, recent falls, visual changes, CP, SOB, abd pain , nausea, vomiting, MSK pain. Patient was admitted last month for treatment of UTI and general malaise from ongoing chemo treatment. 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 Burnette at [facility] Status: Chronic (2) History of total abdominal hysterectomy Status: Chronic (3) S/p pleurectomy and pleurodesis Status: Chronic (4) S/P thoracentesis Status: Chronic Family History Diabetes mellitus SISTER Heart disease MOTHER Social History Smoking Status: Former Smoker Alcohol Use: none Drug Use: none Marital Status: Housing status: [facility] Occupational Status: unemployed Immunizations History of Influenza Vaccine: Yes Influenza Vaccine Date: Dec 29, 2015 History of Tetanus Vaccine?: Yes Tetanus Immunization Date: Jun 02, 2011 History of Pneumococcal: Yes Pneumococcal Date: June 21, 2014 Multi-Drug Resistant Organisms History of MDRO: No Allergies Coded Allergies: No Known Allergies (Verified , 12/14/16) Home Medications Scheduled Aspirin Enteric Coated (Ecotrin Or Generic), 81 MG PO QAM Carvedilol (Coreg), 25 MG PO BID Cephalexin Monohydrate (Keflex), 500 MG PO QID Cholecalciferol (Vitamin D3), 1,000 UNITS PO QAM Cyanocobalamin (Vitamin B-12), 1,000 MCG PO QAM Furosemide (Lasix), 20 MG PO BID Glipizide (Glipizide), 5 MG PO QAM Hydralazine Hcl (Apresoline), 50 MG PO TID Iron-Vitamin C (Vitron-C), 1 TAB PO DAILY Levothyroxine Sodium (Levothyroxine Sodium), 150 MCG PO DAILY Lorazepam (Ativan), 0.5 MG PO BID Omeprazole (Prilosec), 40 MG PO QAM Ondansetron Hcl (Zofran), 8 MG PO BID Potassium Ext Rel (Klor-Con), 20 MEQ PO BID Promethazine Hcl (Phenergan), 25 MG PO BID Rosuvastatin Calcium (Crestor), 40 MG PO QAM Saccharomyces Boulardii (Probiotic), 250 MG PO BID Sildenafil Citrate (Pulmonary (Sildenafil), 20 MG PO TID Scheduled PRN Acetaminophen (Tylenol), 650 MG PO Q6 PRN for Pain or Fever Acetaminophen (Tylenol), 1 SUPP OR Q6 PRN for Pain or Fever Bisacodyl (Dulcolax), 1 SUPP OR UD PRN for Constipation Diclofenac Sodium (Topical) (Voltaren 1% Top Gel), 1 GM TD Q6 PRN for Pain Docusate Sodium (Docusate Sodium), 100 MG PO DAILY PRN for Constipation Fluticasone Prop/Salmeterol (Advair Diskus 250/50 60 Dose), 1 PUFF INH BID PRN for Fluticasone Propionate (Nasal) (Flonase Allergy Relief), 2 SPRAY LATRICE DAILY PRN for Loratadine (Claritin), 10 MG PO DAILY PRN for Magnesium Hydroxide (Milk Of Magnesia), 30 ML PO UD PRN for Constipation Polyethylene (Miralax), 17 GM PO DAILY PRN for Constipation Sodium Phosphates (Fleet Enema Six Pack), 1 APPLN OR UD PRN for Constipation Tramadol (Ultram), 25 MG PO Q6 PRN for Pain Review of Systems Ten systems reviewed and negative except as noted in the HPI. Physical Exam Vital Signs Date Time Temp Pulse Resp B/P (MAP) Pulse Ox O2 Delivery O2 Flow Rate FiO2 12/14/16 20:13 37.2 82 18 116/64 (81) 90 Nasal Cannula 2.0 12/14/16 17:09 74 12/14/16 17:05 72 122/56 95 Room Air 12/14/16 15:03 68 20 127/60 97 Nasal Cannula 2.0 12/14/16 13:12 Nasal Cannula 3.0 12/14/16 13:09 72 12/14/16 13:06 37.2 91 20 117/61 98 Nasal Cannula 3.0 General Appearance: WD/WN, no apparent distress Head: normocephalic, atraumatic Eyes: normal inspection, PERRL, EOMI, sclerae normal (conjunctiva normal ) ENT: normal ENT inspection, hearing grossly normal, pharynx normal (moist mucous membranes ) Neck: supple, no JVD, trachea midline Respiratory/Chest: chest non-tender, lungs clear, normal breath sounds, no respiratory distress, no accessory muscle use Cardiovascular: regular rate, rhythm, no murmur Abdomen/GI: normal bowel sounds, non tender, soft, no organomegaly Extremities/Musculoskelatal: normal inspection, no calf tenderness, non-tender , + swelling (1+ pitting edema bilaterally to knee. No skin breakdown. ) Neurologic/Psych: no motor/sensory deficits, alert (oriented to self. ), normal mood/affect, + pertinent finding (Confused, but seems to be at baseline ) Skin: + pertinent finding (Presence of erythematous and edematous R forearm and elbow with associated warmth. TTP. Reduced ROM 2/2 pain and swelling.) Diagnostics Laboratory Results Results Past 24 Hours Test 12/14/16 14:19 12/14/16 14:25 12/14/16 14:26 12/14/16 14:49 Range/Units White Blood Count 11.24 4.8-10.8 K/uL Red Blood Count 2.80 4.2-5.4 M/uL Hemoglobin 8.6 12.0-16.0 g/dL Hematocrit 29.3 37-47 % Mean Corpuscular Volume 104.6 80-100 fL Mean Corpuscular Hemoglobin 30.7 25-34 pg Mean Corpuscular Hemoglobin Concent 29.4 32-36 g/dl Platelet Count 132 130-400 K/uL Mean Platelet Volume 9.2 7.4-10.4 fL Neutrophils (%) (Auto) 79.1 % Lymphocytes (%) (Auto) 9.1 % Monocytes (%) (Auto) 8.9 % Eosinophils (%) (Auto) 2.4 % Basophils (%) (Auto) 0.2 % Neutrophils # (Auto) 8.90 1.4-6.5 K/uL Lymphocytes # (Auto) 1.02 1.2-3.4 K/uL Monocytes # (Auto) 1.00 0.11-0.59 K/uL Eosinophils # (Auto) 0.27 0-0.5 K/uL Basophils # (Auto) 0.02 0-0.2 K/uL RDW Standard Deviation 71.3 36.4-46.3 fL RDW Coefficient of Variation 18.4 11.5-14.5 % Immature Granulocyte % (Auto) 0.3 % Immature Granulocyte # (Auto) 0.03 0.00-0.02 K/uL Hypogranular Neutrophils 1+ Anisocytosis PRESENT Stomatocytes 1+ Sodium Level 137 136-145 mmol/L Potassium Level 3.6 3.5-5.1 mmol/L Chloride Level 93 98-107 mmol/L Carbon Dioxide Level 37 21-32 mmol/L Anion Gap 7.0 3-11 mmol/L Blood Urea Nitrogen 24 7-18 mg/dl Creatinine 1.61 0.60-1.20 mg/dl Estimated GFR () 35.4 Estimated GFR (Non- 30.5 BUN/Creatinine Ratio 14.8 10-20 Random Glucose 81 70-99 mg/dl Calcium Level 10.4 8.5-10.1 mg/dl Total Bilirubin 0.3 0.2-1 mg/dl Direct Bilirubin 0.1 0-0.2 mg/dl Aspartate Amino Transf (AST/SGOT) 46 15-37 U/L Alanine Aminotransferase (ALT/SGPT) 47 12-78 U/L Alkaline Phosphatase 64 45-117 U/L Total Protein 6.8 6.4-8.2 gm/dl Albumin 2.4 3.4-5.0 gm/dl Lipase 212 73-393 U/L Bedside Lactic Acid Venous 0.91 0.90-1.70 mmol/L Bedside Troponin I 0.080 0-0.045 ng/ml Urine Color YELLOW Urine Appearance CLEAR CLEAR Urine pH 7.0 4.5-7.5 Urine Specific Hawi 1.011 1.000-1.030 Urine Protein NEG NEG Urine Glucose (UA) NEG NEG Urine Ketones NEG NEG Urine Occult Blood NEG NEG Urine Nitrite NEG NEG Urine Bilirubin NEG NEG Urine Urobilinogen NEG NEG Urine Leukocyte Esterase NEG NEG Test 12/14/16 19:50 12/14/16 20:16 12/14/16 20:26 Range/Units Bedside Glucose 113 70-90 mg/dl Microbiology Results 12/14/16 Blood Culture, Received Pending 12/14/16 Blood Culture, Received Pending 12/14/16 Urine Culture, Received Pending Diagnostic Radiology CT head: Impression: No acute intracranial abnormality. CXR: IMPRESSION: 1. Stable examination with right apical consolidation in chronic hilar fullness which correlates to known mediastinal mass/adenopathy better evaluated on prior CT. No new focal infiltrate. Elbow XR: IMPRESSION: 1. Mild degenerative changes without acute fracture or dislocation. 2. Mild nonspecific periosteal thickening of the dorsal mid to distal humeral diaphysis. R UE ultrasound: IMPRESSION: No DVT within the upper extremity. Several small nonspecific nodes of the upper extremity EKG Normal sinus rhythm Right bundle branch block Confirmed by CB CHURCHILL Also reviewed by me. No change from prior EKG Impression Assessment and Plan Patient is a 76yo F [facility] resident with a PMH of Stage IV non-small cell lung cancer (currently receiving chemo), DM II, CKD, severe COPD, CHF (with preserved EF), HTN, hypothyroidism and HLD who was sent to ER from [facility] onc clinic for evaluation of altered mental status and a swollen R arm. R arm cellulitis: -Marked inflammation and erythema -Elbow XR without fracture, dislocation or osteomyelitis Mild degenerative changes, mild nonspecific periosteal thickening -No DVT of UE present on ultrasound -Failed out-patient treatment on Keflex -Continue vanc and cefepime -Blood cultures pending -Monitor CBC Altered mental status: -No longer exhibiting hallucinations described at clinic appt -Per [facility], patient has had gradual cognitive decline -Likely multifactorial with ongoing chemo tx, infection, dementia -Hold tramadol, ativan for now -CT head without acute intracranial abnormalities -Continue to monitor Elevated troponin: -Initial troponin of 0.08 -Denies CP -Likely elevated 2/2 infection -EKG without ischemic changes -Continue trending cardiac enzymes -Repeat EKG in AM Stage IV Non-small cell Lung Cancer: -Ongoing chemo cycle with etoposide and carboplatin (day 14) -Followed by Dr. Ortega -No acute symptoms COPD: (severe) -On 2L O2 chronically -O2 saturation 97% -Stable; no CP, SOB -Continue home inhalers, sildenafil CHF (with preserved EF): -Compensated; no CP, SOB -Minimal swelling in LE -Continue carvedilol -Lasix held due to slight Cr bump CKD III: -Cr 1.61 (baseline ~1.5) -Has been downtrending from 2.54 in late Oct -Will hold lasix for now -Monitor BMP HTN: -Normotensive -Continue hydralazine, carvedilol with hold parameters Hypothyroidism: -TSH pending -Continue home dose levothyroxine HLD: -Continue statin GERD: -Continue PPI DVT Ppx: Heparin SQ Code status: Per POLST provided in [facility] documentation, patient desires CPR without mechanical ventilation. (Level 3). Updated patient's son, Brian, and confirmed code status. PCP: [facility] Dispo: SW consulted to help with discharge placement Patient seen in collaboration with Dr. Sofia. Please see addendum. ADDENDUM: This is a 76 year old female with NSCLC, underlying dementia, COPD and chronic respiratory failure, hypothyroidism, HTN presents with possible confusion ( worsened from baseline) and a RUE cellulitis On exam, she is oriented to self, but not to place/time - denies any symptoms at this time except for RUE pain. Plan: give Cefepime and Vanco for the cellulitis for now. Monitor in tele. Trend cardiac enzyme as the initial set was mildly elevated ( possibly from infection?) Level of Care Telemetry Resuscitation Status FULL NO MECH VENTILATION VTE Prophylaxis VTE Risk Assessment Done? Y/N: Yes Risk Level: Moderate Given or contraindicated: Unfractionated heparin SQ
[2016-12-14 21:05] LABS: CKMB/CK RATIO 2.3 (0-3.0)
[2016-12-14] MEDS ORDERED: FLUTICASONE PROPIONATE NA SPR 16 GM BTL NAE PRN (22:30)
[2016-12-14] MEDS ORDERED: FLUTICASONE/SALMETEROL 250/50 (ADVAIR) 14 PUFF/1 INHALER INH PRN (22:30)
[2016-12-14] MEDS ORDERED: DOCUSATE SODIUM 100 MG CAP PO PRN (22:30)
[2016-12-14] MEDS ORDERED: POLYETHYLENE (MIRALAX) 17 GM PACK PO PRN (22:30)
[2016-12-14] MEDS: HEPARIN SOD 5000 UNIT/0.5 ML CARP SQ SCH (22:38)
[2016-12-14 23:44] VITALS: BP 146/66; PULSE 79; TEMP 37.7; O2SAT 94
[2016-12-15] VITALS (7 sets, daily range): BP systolic 99–158; BP diastolic 54–82; PULSE 63–80; TEMP 36.8–37.3; O2SAT 90–98
[2016-12-15 02:32] LABS: HEMATOCRIT 27.2 % (37-47); MEAN CELL VOLUME 104.6 fL (80-100); MEAN CORPUSCULAR HEMOGLOBIN 30.4 pg (25-34); MEAN PLATELET VOLUME 8.2 fL (7.4-10.4); PLATELET COUNT 100 K/uL (130-400); WHITE BLOOD COUNT 11.12 K/uL (4.8-10.8)
[2016-12-15 02:41] LABS: INR 1.1 (0.9-1.1); PROTHROMBIN TIME (PATIENT) 11.5 SECONDS (9.0-12.0)
[2016-12-15 03:05] LABS: CALCIUM 9.9 mg/dl (8.5-10.1); CREATININE 1.44 mg/dl (0.60-1.20); POTASSIUM 3.6 mmol/L (3.5-5.1)
[2016-12-15 03:32] LABS: CKMB/CK RATIO 3.6 (0-3.0)
[2016-12-15] MEDS ORDERED: NURSING VERBAL MED ORDER ONE (03:45)
[2016-12-15] MEDS: ONDANSETRON INJ 2 MG/ML 2 ML VIAL IV PRN (04:55)
[2016-12-15] MEDS: ACETAMINOPHEN 325 MG TAB PO PRN ×2 (05:40→19:53)
[2016-12-15] MEDS: LEVOTHYROXINE 150 MCG TAB PO SCH (05:47)
[2016-12-15] MEDS: INSULIN ASPART 100 UNITS/ML 3 ML PEN SC SCH ×4 (06:30→20:38)
[2016-12-15] MEDS: HEPARIN SOD 5000 UNIT/0.5 ML CARP SQ SCH ×2 (09:00→20:29)
[2016-12-15] MEDS ORDERED: ONDANSETRON 8 MG TAB PO SCH (09:00)
[2016-12-15] MEDS ORDERED: NON-FORMULARY MEDICATION (Iron-Vitamin C (Vitron-C) 1 TAB) PO SCH (09:00)
--- NOTE | 2016-12-15 09:14 | Clinical Documentation Query ---
CLINICAL DOCUMENTATION QUERY A 76yo F [facility] resident with a PMH of Stage IV non-small cell lung cancer (currently receiving chemo), DM II, CKD, severe COPD, CHF (with preserved EF), HTN, hypothyroidism and HLD who was sent to ER from [facility] onc clinic for evaluation of altered mental status and a swollen R arm. In your clinical opinion is this patient being managed for: ( x ) Encephalopathy, in the setting of cellulitis infection and treated with IV Vancomycin and Cefepime ( ) Not Agree ( ) Other explanation of clinical findings (Please Explain) ( ) Unable to determine (Please Define) ( ) Need to Discuss The medical record reflects the following clinical findings, treatment, and risk factors. Clinical Indicators: Altered mental status, cellulitis right arm, WBC 11.24, temp 37.7 Treatment: IV Vancomycin and Cefepimine, I&O, fall and aspiration precautions Risk Factors: Age, altered mental status, infection Please clarify and document your clinical opinion in the progress notes and discharge summary. Terms such as "probable", "suspected", "likely", "questionable", "possible", or "still to be ruled out" are acceptable. IF IN AGREEMENT, YOU MUST DOCUMENT ABOVE DIAGNOSTIC STATEMENT IN DAILY PROGRESS NOTES AND DISCHARGE SUMMARY. This document is not part of the patient's record. Thank You, Shey Mckenna RN [phone]
[2016-12-15] MEDS: PANTOprazole SOD 40 MG TAB PO SCH (09:18)
[2016-12-15] MEDS: ROSUVASTATIN CALCIUM 20 MG TAB PO SCH (09:18)
[2016-12-15] MEDS: SILDENAFIL CITRATE 20 MG TAB PO SCH ×3 (09:18→20:17)
[2016-12-15] MEDS: CYANOCOBALAMIN 500 MCG TAB (VIT B-12) PO SCH (09:19)
[2016-12-15] MEDS: CARVEDILOL 25 MG TAB PO SCH ×2 (09:19→20:20)
[2016-12-15] MEDS: ASPIRIN 81 MG ECTAB PO SCH (09:19)
[2016-12-15] MEDS: CHOLECALCIFEROL 1000 INTER.UNIT TAB PO SCH (09:19)
[2016-12-15] MEDS: LORAZEPAM 0.5 MG TAB PO SCH ×2 (09:22→19:51)
[2016-12-15] MEDS: CEFEPIME IV 1,000 MG in SYRINGE 0 ML IV SCH (16:15)
--- NOTE | 2016-12-15 17:13 | Pharmacy Progress Note ---
Pharmacy Abx Dose Short Note Date of Service Dec 15, 2016. Assessment & Plan Item Value Date Time Random Vancomycin Level 15.7 mcg/ml 12/15/16 1156 Assessment 76 year old female receiving VANC/CEFEPIME for treatment of right arm cellulitis * Day # 2 of antimicrobial therapy. Plan Vancomycin * LOADING DOSE: VANC 1750mg (~24mg/kg) IV x 1 12/14 @ 1657 * Random Vanc level drawn ~ 18 hours later was therapeutic and indicates ready to redose. * Ordered Maintenance dose: VANC 750mg (~10mg/kg) IV every 24 hours. * Goal trough level: ~ 15 mcg/mL pending C&S * VANC Trough @Css prior to 12/17 1800 dose Cefepime: target dose 2 grams IV every 12 hours. Ordered 1 gram IV every 24 hours based on current GFR. Pharmacy will continue to follow and will adjust dose/frequency as necessary. Thank you.
--- NOTE | 2016-12-15 18:13 | Progress Note ---
Medicine Progress Note Date & Time of Visit: Dec 15, 2016 at 17:09. Subjective tolerating PO appears comfortable no complaints states that her arm is feeling better since yesterday she cannot give much history 2/2 cognitive decline. Objective Last 8 Hrs Date Time Temp Pulse Resp B/P (MAP) Pulse Ox O2 Delivery O2 Flow Rate FiO2 12/15/16 16:00 Nasal Cannula 3.0 12/15/16 15:37 37.0 65 18 99/64 (76) 90 Nasal Cannula 2.0 12/15/16 12:00 Nasal Cannula 3.0 12/15/16 11:31 37.1 63 20 114/54 (74) 96 Nasal Cannula 2.0 Physical Exam: GEN: obese, elderly, in no acute distress, alert and appropriate, tolerating solid food, up in bedside chair, very pleasant HEENT: NC/AT, PERRL, normal sclerae, MMM CARDIO: reg rate, S1/2 heard without m/g/r, Port in anterior chest wall-accessed , no surrounding erythema LUNGS: CTA bilaterally with diminished breath sounds throughout, no crackles, rales or wheezes, good diaphragmatic excursion. Test limited by the positioning of the patient. ABD: soft, non-tender, non-distended, no rebound or guarding, +BS EXTREMITY: RP and DP palpable 2+ bilat, no LE swelling or edema, extremities are warm and well-perfused NEURO: CN 2-12 grossly intact, alert and oriented to self only. Thinks her home is in [place], [place] and cannot tell me what state we are in now, doesn't know date, year or season. MUSC: moves all extremities equally, no gross focal deficits. SKIN: warm and dry Laboratory Results: 12/15/16 02:22 12/15/16 02:21 Test 12/14/16 14:19 12/14/16 14:25 12/14/16 14:26 12/14/16 14:49 Immature Granulocyte % (Auto) 0.3 % White Blood Count 11.24 K/uL (4.8-10.8) Red Blood Count 2.80 M/uL (4.2-5.4) Hemoglobin 8.6 g/dL (12.0-16.0) Hematocrit 29.3 % (37-47) Mean Corpuscular Volume 104.6 fL (80-100) Mean Corpuscular Hemoglobin 30.7 pg (25-34) Mean Corpuscular Hemoglobin Concent 29.4 g/dl (32-36) Platelet Count 132 K/uL (130-400) Mean Platelet Volume 9.2 fL (7.4-10.4) Neutrophils (%) (Auto) 79.1 % Lymphocytes (%) (Auto) 9.1 % Monocytes (%) (Auto) 8.9 % Eosinophils (%) (Auto) 2.4 % Basophils (%) (Auto) 0.2 % Neutrophils # (Auto) 8.90 K/uL (1.4-6.5) Lymphocytes # (Auto) 1.02 K/uL (1.2-3.4) Monocytes # (Auto) 1.00 K/uL (0.11-0.59) Eosinophils # (Auto) 0.27 K/uL (0-0.5) Basophils # (Auto) 0.02 K/uL (0-0.2) Immature Granulocyte # (Auto) 0.03 K/uL (0.00-0.02) Hypogranular Neutrophils 1+ Anisocytosis PRESENT Stomatocytes 1+ Total Bilirubin 0.3 mg/dl (0.2-1) Direct Bilirubin 0.1 mg/dl (0-0.2) Aspartate Amino Transf (AST/SGOT) 46 U/L (15-37) Alanine Aminotransferase (ALT/SGPT) 47 U/L (12-78) Alkaline Phosphatase 64 U/L (45-117) Total Protein 6.8 gm/dl (6.4-8.2) Albumin 2.4 gm/dl (3.4-5.0) Lipase 212 U/L (73-393) Bedside Lactic Acid Venous 0.91 mmol/L (0.90-1.70) Bedside Troponin I 0.080 ng/ml (0-0.045) Urine Color YELLOW Urine Appearance CLEAR (CLEAR) Urine pH 7.0 (4.5-7.5) Urine Specific [place] 1.011 (1.000-1.030) Urine Protein NEG (NEG) Urine Glucose (UA) NEG (NEG) Urine Ketones NEG (NEG) Urine Occult Blood NEG (NEG) Urine Nitrite NEG (NEG) Urine Bilirubin NEG (NEG) Urine Urobilinogen NEG (NEG) Urine Leukocyte Esterase NEG (NEG) Test 12/15/16 02:21 12/15/16 02:22 12/15/16 11:56 12/15/16 16:22 Anion Gap 5.0 mmol/L (3-11) Est Creatinine Clear Calc Drug Dose 29.2 ml/min Estimated GFR () 40.5 Estimated GFR (Non- 34.9 BUN/Creatinine Ratio 14.0 (10-20) Calcium Level 9.9 mg/dl (8.5-10.1) Total Creatine Kinase 28 U/L (26-192) Creatine Kinase MB 1.0 ng/ml (0.5-3.6) Creatine Kinase MB Ratio 3.6 (0-3.0) Troponin I 0.075 ng/ml (0-0.045) Thyroid Stimulating Hormone (TSH) 11.000 uIu/ml (0.300-4.500) Red Blood Count 2.60 M/uL (4.2-5.4) Mean Corpuscular Volume 104.6 fL (80-100) Mean Corpuscular Hemoglobin 30.4 pg (25-34) Mean Corpuscular Hemoglobin Concent 29.0 g/dl (32-36) RDW Standard Deviation 72.0 fL (36.4-46.3) RDW Coefficient of Variation 18.7 % (11.5-14.5) Mean Platelet Volume 8.2 fL (7.4-10.4) Prothrombin Time 11.5 SECONDS (9.0-12.0) Prothromb Time International Ratio 1.1 (0.9-1.1) Random Vancomycin Level 15.7 mcg/ml Bedside Glucose 112 mg/dl (70-90) Date/Time Source Procedure Growth Status 12/14/16 14:34 Blood Blood Culture Pending Received 12/15/16 09:35 Nasal MRSA DNA Surveillance Screen - Final Specimen Negative for MRSA by DNA Probe Complete 12/14/16 14:49 Urine,Catheterized Urine Culture - Preliminary NO GROWTH - LESS THAN 1,000 COLONIES/... Resulted Last 24 Hours Test 12/14/16 20:16 12/14/16 20:30 12/15/16 02:21 12/15/16 02:22 Bedside Glucose 113 mg/dl Prothrombin Time 11.4 SECONDS 11.5 SECONDS Prothromb Time International Ratio 1.1 1.1 Total Creatine Kinase 26 U/L 28 U/L Creatine Kinase MB 0.6 ng/ml 1.0 ng/ml Creatine Kinase MB Ratio 2.3 3.6 Troponin I 0.086 ng/ml 0.075 ng/ml Sodium Level 137 mmol/L Potassium Level 3.6 mmol/L Chloride Level 96 mmol/L Carbon Dioxide Level 36 mmol/L Anion Gap 5.0 mmol/L Blood Urea Nitrogen 20 mg/dl Creatinine 1.44 mg/dl Est Creatinine Clear Calc Drug Dose 29.2 ml/min Estimated GFR () 40.5 Estimated GFR (Non- 34.9 BUN/Creatinine Ratio 14.0 Random Glucose 103 mg/dl Calcium Level 9.9 mg/dl Thyroid Stimulating Hormone (TSH) 11.000 uIu/ml White Blood Count 11.12 K/uL Red Blood Count 2.60 M/uL Hemoglobin 7.9 g/dL Hematocrit 27.2 % Mean Corpuscular Volume 104.6 fL Mean Corpuscular Hemoglobin 30.4 pg Mean Corpuscular Hemoglobin Concent 29.0 g/dl RDW Standard Deviation 72.0 fL RDW Coefficient of Variation 18.7 % Platelet Count 100 K/uL Mean Platelet Volume 8.2 fL Test 12/15/16 07:42 12/15/16 11:39 12/15/16 11:56 12/15/16 16:22 Bedside Glucose 93 mg/dl 109 mg/dl 112 mg/dl Random Vancomycin Level 15.7 mcg/ml Date/Time Source Procedure Growth Status 12/15/16 09:35 Nasal MRSA DNA Surveillance Screen - Final Specimen Negative for MRSA by DNA Probe Complete Assessment & Plan Patient is a 76yo F [facility] resident with a PMH of Stage IV non-small cell lung cancer (currently receiving chemo), DM II, CKD, severe COPD, CHF (with preserved EF), HTN, hypothyroidism and HLD who was sent to ER from [facility] onc clinic for evaluation of altered mental status and a swollen R arm. R arm cellulitis: -Marked inflammation and erythema-improved on IV abx -Elbow XR without fracture, dislocation or osteomyelitis Mild degenerative changes, mild nonspecific periosteal thickening -No DVT of UE present on ultrasound -Failed out-patient treatment on Keflex -Continue vanc and cefepime -Blood cultures pending -Monitor CBC Encephalopathy, in the setting of cellulitis infection and treated with IV Vancomycin and Cefepime: -No longer exhibiting hallucinations described at clinic appt -Per custodial, patient has had gradual cognitive decline-this is consistent with today's exam -Likely multifactorial with ongoing chemo tx, infection, dementia -Hold tramadol, ativan for now -CT head without acute intracranial abnormalities -Continue to monitor and expect continued improvement as infection clears Elevated troponin: -Initial troponin of 0.08 -Denies CP -Likely elevated 2/2 infection -EKG without ischemic changes -echo ordered, prev echo in May 2016 revealed some baseline hypokinesis, evaluate for changes in this. Stage IV Non-small cell Lung Cancer: -Ongoing chemo cycle with etoposide and carboplatin -Followed by Dr. Ortega -port in place. COPD: (severe) -On 2L O2 chronically -O2 saturation 97% -Stable; no CP, SOB -Continue home inhalers, sildenafil CHF (with preserved EF), chronic, compensated: -Compensated; no CP, SOB -cont coreg and crestor -Lasix held due to slight Cr bump and will cont to hold in setting of infection -repeat TTE ordered as above. CKD IV: -GFR consistently 20-30, currently at baseline -Cont holding lasix -Monitor BMP HTN: -Normotensive -Continue hydralazine, carvedilol with hold parameters Hypothyroidism: -TSH pending -Continue home dose levothyroxine HLD: -Continue statin GERD: -Continue PPI Anemia of chronic disease- stable, no indication for transfusion at this time. Cont to monitor. DVT Ppx: Heparin SQ Code status: Per POLST provided in [facility] documentation, patient desires CPR without mechanical ventilation. Dispo: SW consulted to help with discharge placement-[facility] Current Inpatient Medications: Current Inpatient Medications Medications (Trade) Dose Ordered Sig/Gilbert Route Start Time Stop Time Status Last Admin Dose Admin Insulin Aspart (novoLOG ASPART) SLIDING SCALE If C... ACHS SC 12/14/16 21:00 01/13/17 20:59 Glucose (Glucose 40% Gel) 15-30 GRAMS 15 GRAMS... UD PRN PO 12/14/16 17:00 01/13/17 16:59 Glucose (Glucose Chew Tab) 4-8 Tablets 4 Tabl... UD PRN PO 12/14/16 17:00 01/13/17 16:59 Dextrose (Dextrose 50% 50ML Syringe) 25-50ML OF 50% DW IV FOR... UD PRN IV 12/14/16 17:00 01/13/17 16:59 Glucagon (Glucagon Inj) 1 mg UD PRN SQ 12/14/16 17:00 01/13/17 16:59 Heparin Sodium (Porcine) (Heparin Sq 5000 Unit/0.5ml) 5,000 unit Q12 SQ 12/14/16 21:00 01/13/17 20:59 12/14/16 22:38 5,000 UNIT Cefepime HCl (Consult) 1 ea UD PRN N/A 12/14/16 19:30 01/13/17 19:29 Vancomycin HCl (Consult) 1 ea UD PRN N/A 12/14/16 19:30 01/13/17 19:29 Cefepime HCl 1000 mg/Syringe 11 ml @ 5.5 mls/min Q24H IV 12/15/16 16:00 12/24/16 15:59 12/15/16 16:15 5.5 MLS/MIN Heparin Sodium (Porcine) (Heparin 100 Unit/ml 5ml Flush) 5 ml PRN PRN IV 12/14/16 21:00 01/13/17 20:59 12/15/16 04:55 5 ML Acetaminophen (Tylenol Tab) 650 mg Q6H PRN PO 12/14/16 22:30 01/13/17 22:29 12/15/16 05:40 650 MG Aspirin (Ecotrin Tab) 81 mg QAM PO 12/15/16 09:00 01/14/17 08:59 12/15/16 09:19 81 MG Carvedilol (Coreg Tab) 25 mg BID PO 12/15/16 09:00 01/14/17 08:59 12/15/16 09:19 25 MG Cholecalciferol (Vitamin D Tab) 1,000 inter.unit QAM PO 12/15/16 09:00 01/14/17 08:59 12/15/16 09:19 1,000 INTER.UNIT Cyanocobalamin (Vitamin B-12 Tab) 1,000 mcg QAM PO 12/15/16 09:00 01/14/17 08:59 12/15/16 09:19 1,000 MCG Docusate Sodium (coLACE CAP) 100 mg DAILY PRN PO 12/14/16 22:30 01/13/17 22:29 Salmeterol Xinafoate/ Fluticasone (Advair Diskus 250/50 Inh) 1 puff BID PRN INH 12/14/16 22:30 01/13/17 22:29 Fluticasone Propionate (Flonase Nasal [place]) 2 sprays DAILY PRN LATRICE 12/14/16 22:30 01/13/17 22:29 Hydralazine HCl (Apresoline Tab) 50 mg TID PO 12/15/16 09:00 01/14/17 08:59 12/15/16 14:26 50 MG Levothyroxine Sodium (Synthroid Tab) 150 mcg DAILYBB PO 12/15/16 06:30 01/14/17 06:29 12/15/16 05:47 150 MCG Lorazepam (Ativan Tab) 0.5 mg BID PO 12/15/16 09:00 01/14/17 08:59 12/15/16 09:22 0.5 MG Polyethylene (Miralax Powder Packet) 17 gm DAILY PRN PO 12/14/16 22:30 01/13/17 22:29 Rosuvastatin Calcium (Crestor Tab) 40 mg QAM PO 12/15/16 09:00 01/14/17 08:59 12/15/16 09:18 40 MG Sildenafil Citrate (Revatio Tab) 20 mg TID PO 12/15/16 09:00 01/14/17 08:59 12/15/16 14:27 20 MG Pantoprazole Sodium (Protonix Tab) 40 mg QAM PO 12/15/16 09:00 01/14/17 08:59 12/15/16 09:18 40 MG Ondansetron HCl (Zofran Inj) 4 mg Q4H PRN IV 12/15/16 04:30 01/14/17 04:29 12/15/16 04:55 4 MG Vancomycin HCl 750 mg/Sodium Chloride 265 ml @ 125 mls/hr DAILY@1800 IV 12/15/16 18:00 12/25/16 17:59
[2016-12-15] MEDS: VANCOMYCIN INJ 750 MG in SODIUM CHLORIDE 0.9% 250ML 250 ML IV SCH (18:18)
[2016-12-16] VITALS (10 sets, daily range): BP systolic 90–145; BP diastolic 50–67; PULSE 69–88; TEMP 36.8–37; O2SAT 90–98
[2016-12-16 06:20] LABS: BUN/CREATININE RATIO 14.4 (10-20); CALCIUM 10.2 mg/dl (8.5-10.1); CREATININE 1.52 mg/dl (0.60-1.20); POTASSIUM 3.5 mmol/L (3.5-5.1)
[2016-12-16 06:24] LABS: MEAN CELL VOLUME 104.9 fL (80-100); MEAN CORPUSCULAR HEMOGLOBIN 30.7 pg (25-34); MEAN CORPUSCULAR HGB CONC 29.3 g/dl (32-36); PLATELET COUNT 110 K/uL (130-400); RED BLOOD COUNT 2.67 M/uL (4.2-5.4); WHITE BLOOD COUNT 8.87 K/uL (4.8-10.8)
[2016-12-16 06:26] LABS: ANISOCYTOSIS PRESENT; BASO % 0.1 %; BASO ABS # 0.01 K/uL (0-0.2); COMPLETE YES; EOS % 2.7 %; IG% 0.2 %; LYMPH % 8.7 %; LYMPH ABS # 0.77 K/uL (1.2-3.4); MONO % 8.5 %; NEUT % 79.8 %; POLYCHROMASIA 1+
[2016-12-16] MEDS: INSULIN ASPART 100 UNITS/ML 3 ML PEN SC SCH ×4 (06:30→21:01)
[2016-12-16] MEDS: SILDENAFIL CITRATE 20 MG TAB PO SCH ×3 (08:17→20:57)
[2016-12-16] MEDS: CARVEDILOL 25 MG TAB PO SCH ×2 (08:17→20:57)
[2016-12-16] MEDS: LORAZEPAM 0.5 MG TAB PO SCH ×2 (08:19→20:55)
[2016-12-16] MEDS: ROSUVASTATIN CALCIUM 20 MG TAB PO SCH (08:19)
[2016-12-16] MEDS: CHOLECALCIFEROL 1000 INTER.UNIT TAB PO SCH (08:20)
[2016-12-16] MEDS: LEVOTHYROXINE 150 MCG TAB PO SCH (08:20)
[2016-12-16] MEDS: CYANOCOBALAMIN 500 MCG TAB (VIT B-12) PO SCH (08:20)
[2016-12-16] MEDS: PANTOprazole SOD 40 MG TAB PO SCH (08:20)
[2016-12-16] MEDS: HEPARIN SOD 5000 UNIT/0.5 ML CARP SQ SCH ×2 (08:22→21:02)
[2016-12-16] MEDS: ASPIRIN 81 MG ECTAB PO SCH (08:22)
[2016-12-16] MEDS: ACETAMINOPHEN 325 MG TAB PO PRN ×2 (08:47→18:39)
--- NOTE | 2016-12-16 09:51 | ECHOCARDIOGRAM REPORT ---
*NOTICE TO RECEIVING [employer] This information is strictly Confidential and protected under [place] law. [place] law prohibits you from making any further disclosure of this information unless further disclosure is expressly permitted by the written consent of the person to whom it pertains or is authorized by law. A general authorization for the release of medical or other information is not sufficient for this purpose. Hospital accepts no responsibility if the information is made available to any other person, INCLUDING THE PATIENT. Interpretation Summary * Name: VITA BARCLAY Study Date: 12/16/2016 06:42 AM BP: 90/50 mmHg * Patient Location: [facility]\S\[id number]\2 HR: 84 * : 1940 (M/d/yyyy) Gender: Female Height: 60 in * Age: 76 yrs Ethnicity: CA Weight: 155 lb * Ordering Physician: Ofelia Torres * Referring Physician: Self, Referred * Performed By: Justin Cote RCS * * Reason For Study: Elevated Troponin, Eval. Wall Motion * BSA: 1.7 m2 * -- Conclusions -- * Compared to previous study: regional wall motion abnormalities have resolved. * Normal LV chamber size with borderline concentric LVH. * Normal LV systolic function, EF 65-70%. * No segmental left ventricular wall motion abnormalities are noted. * Grade II diastolic dysfunction. * Mild tricuspid regurgitation. * Moderate left atrial enlargement. * Small, loculated, anterior pericardial effusion without hemodynamic significance. Procedure Details * A complete two-dimensional transthoracic echocardiogram was performed (2D, M-mode, Doppler and color flow Doppler). Left Ventricle * The left ventricle is normal in size. * There is borderline concentric left ventricular hypertrophy. * Ejection Fraction = 65-70%. * Left ventricular systolic function is normal. * No segmental left ventricular wall motion abnormalities are noted. * The left ventricular wall motion is normal. Right Ventricle * The right ventricular cavity size is normal (basal dimension <4.2 cm in right ventricular apical 4-chamber view). * The right ventricular systolic function is normal as assessed by tricuspid annular plane systolic excursion (TAPSE) (normal >1.5 cm). Atria * The left atrium is moderately dilated. * Right atrial size is normal. * No ASD detected; PFO is not assessed. Mitral Valve * The mitral valve is normal in structure and function. Tricuspid Valve * The tricuspid valve anatomy is normal. * There is no tricuspid stenosis. * There is mild tricuspid regurgitation. Aortic Valve * The aortic valve is not well visualized. * No hemodynamically significant valvular aortic stenosis. * There is no significant aortic regurgitation. Pulmonic Valve * The pulmonary valve is not well seen, but the Doppler examination is normal without significant regurgitation or stenosis. Great Vessels * The aortic root and proximal ascending aorta are normal sized. Pericardium/Pleural * Small pericardial effusion. * A loculated pericardial effusion is noted. Left Ventricular Diastolic Function * Diastolic dysfunction, Grade II (pseudonormalization pattern). MMode 2D Measurements and Calculations IVSd 1.0 cm IVSs 1.5 cm LVIDd 4.8 cm LVIDs 3.0 cm LVPWd 1.0 cm LVPWs 1.3 cm IVS/LVPW 0.99 FS 38.2 % EDV(Teich) 109.4 ml ESV(Teich) 34.6 ml EF(Teich) 68.3 % EDV(cubed) 113.1 ml ESV(cubed) 26.7 ml EF(cubed) 76.4 % % IVS thick 46.0 % % LVPW thick 25.2 % LV mass(C)d 182.0 grams LV mass(C)dI 108.7 grams/m\S\2 LV mass(C)s 141.6 grams LV mass(C)sI 84.5 grams/m\S\2 SV(Teich) 74.7 ml SI(Teich) 44.6 ml/m\S\2 SV(cubed) 86.4 ml SI(cubed) 51.6 ml/m\S\2 Ao root diam 3.2 cm Ao root area 8.3 cm\S\2 ACS 1.9 cm LA dimension 4.5 cm asc Aorta Diam 3.2 cm LA/Ao 1.4 EDV(MOD-sp4) 113.0 ml ESV(MOD-sp4) 32.0 ml EF(MOD-sp4) 71.7 % EDV(MOD-sp2) 131.0 ml ESV(MOD-sp2) 44.0 ml EF(MOD-sp2) 66.4 % SV(MOD-sp4) 81.0 ml SI(MOD-sp4) 48.4 ml/m\S\2 SV(MOD-sp2) 87.0 ml SI(MOD-sp2) 51.9 ml/m\S\2 Doppler Measurements and Calculations MV E max linda 110.2 cm/sec MV A max linda 104.6 cm/sec MV E/A 1.1 MV P1/2t max linda 118.1 cm/sec MV P1/2t 99.4 msec MVA(P1/2t) 2.2 cm\S\2 MV dec slope 347.8 cm/sec\S\2 MV dec time 0.23 sec Ao V2 max 150.1 cm/sec Ao max PG 9.0 mmHg Ao max PG (full) 0.80 mmHg AI max linda 329.6 cm/sec AI max PG 43.4 mmHg AI dec slope 180.7 cm/sec\S\2 AI P1/2t 534.1 msec LV V1 max PG 8.2 mmHg LV V1 max 143.3 cm/sec PA V2 max 176.7 cm/sec PA max PG 12.5 mmHg PI max linda 207.6 cm/sec PI max PG 17.2 mmHg PI dec slope 240.6 cm/sec\S\2 PI P1/2t 252.8 msec TR max linda 246.2 cm/sec
--- NOTE | 2016-12-16 16:07 | Progress Note ---
Medicine Progress Note Date & Time of Visit: Dec 16, 2016 at 16:03 . Subjective Less pain right arm. No fever or chills. No chest pain. No cough or SOB. No nausea or vomiting. No diarrhea. No urinary symptoms. . Objective Last 8 Hrs Date Time Temp Pulse Resp B/P (MAP) Pulse Ox O2 Delivery O2 Flow Rate FiO2 12/16/16 15:28 36.8 70 22 123/67 (85) 92 Room Air 12/16/16 12:00 Nasal Cannula 3.0 12/16/16 11:54 101/63 (76) 12/16/16 11:38 37.0 71 12 97 Nasal Cannula 3.0 12/16/16 10:38 97 Nasal Cannula 3.0 Physical Exam: General- sitting in chair, no distress Neck- no JVD Lungs- clear Heart- RRR, II/ sys murmur at base Thorax- vascular access device right upper chest Abdomen- + BS, soft, nontender Extremities- moderate swelling and erythema RUE; 1+ pretibial edema; no calf tenderness Neuro- alert, oriented to person, but not place, day of week, year, or president . Laboratory Results: Last 24 Hours Test 12/15/16 16:22 12/15/16 20:36 12/16/16 05:39 12/16/16 07:48 Bedside Glucose 112 mg/dl 112 mg/dl 106 mg/dl White Blood Count 8.87 K/uL Red Blood Count 2.67 M/uL Hemoglobin 8.2 g/dL Hematocrit 28.0 % Mean Corpuscular Volume 104.9 fL Mean Corpuscular Hemoglobin 30.7 pg Mean Corpuscular Hemoglobin Concent 29.3 g/dl Platelet Count 110 K/uL Mean Platelet Volume 9.0 fL Neutrophils (%) (Auto) 79.8 % Lymphocytes (%) (Auto) 8.7 % Monocytes (%) (Auto) 8.5 % Eosinophils (%) (Auto) 2.7 % Basophils (%) (Auto) 0.1 % Neutrophils # (Auto) 7.08 K/uL Lymphocytes # (Auto) 0.77 K/uL Monocytes # (Auto) 0.75 K/uL Eosinophils # (Auto) 0.24 K/uL Basophils # (Auto) 0.01 K/uL RDW Standard Deviation 71.0 fL RDW Coefficient of Variation 18.5 % Immature Granulocyte % (Auto) 0.2 % Immature Granulocyte # (Auto) 0.02 K/uL Polychromasia 1+ Basophilic Stippling 1+ Anisocytosis PRESENT Sodium Level 137 mmol/L Potassium Level 3.5 mmol/L Chloride Level 97 mmol/L Carbon Dioxide Level 35 mmol/L Anion Gap 5.0 mmol/L Blood Urea Nitrogen 22 mg/dl Creatinine 1.52 mg/dl Est Creatinine Clear Calc Drug Dose 27.2 ml/min Estimated GFR () 37.9 Estimated GFR (Non- 32.7 BUN/Creatinine Ratio 14.4 Random Glucose 105 mg/dl Calcium Level 10.2 mg/dl Test 12/16/16 11:31 Bedside Glucose 124 mg/dl Assessment & Plan CELLULITIS RUE Presented with swelling and erythema of RUE. WBC 11,000. Low grade temp. Did not meet criteria for sepsis. [facility]. [facility] RUE negative for DVT. Blood cultures negative thus far. Underlying RUE swelling could be due to vascular or lymphatic obstruction. Continue CT of chest to rule out progressive malignancy with compression of subclavian / brachiocephalic veins. Continue IV vancomycin and cefepime. Consult ID for recommendations. ALTERED MENTAL STATUS Noted to have hallucinations prior to admission. Probable encephalopathy / delirium secondary to cellulitis. Improved. SUSPECTED CAD / ELEVATED TROPONIN History of segmental wall motion abnormalities on previous echo. No anginal symptoms. Serum troponin as high as 0.086. Total CPK and CPK-MB normal. EKG on admission showed NSR, RBBB, repolarization abnormalities. Echo did not show any wall motion abnormalities. Elevated troponin probably nonspecific elevation secondary to infection and not due to acute coronary syndrome. Continue aspirin, carvedilol, statin. CHF Chronic diastolic CHF, possibly secondary to hypertensive heart disease. Compensated. HYPERTENSION Continue carvedilol, hydralazine. 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 Receiving palliative chemo. Consider f/u CT in light of RUE swelling. COPD Pulmonary status stable. Continue O2, bronchodilators. PULMONARY HYPERTENSION Continue O2, sildenafil. CKD IV Serum creatinine 1.31 on admission. Creatinine today = 1.52. Follow. GERD Continue PPI. DM TYPE 2 Well-controlled. Hgb A1C = 6.0 11/15/16. Usually managed with glipizide- hold during hospital stay. FBS today = 106. Continue NovoLog coverage PRN. HYPOTHYROIDISM TSH = 11. Increase levothyroxine from 150 mcg to 200 mcg daily. Follow. DYSLIPIDEMIA Continue statin. ANEMIA Hgb 7.9-8.6. Chronic, multifactorial. Underlying malignancy. No indication for transfusion at this time per guidelines. Follow. DEMENTIA Monitor for delirium. Avoid meds with anticholinergic side effects. VTE PROPHYLAXIS SQ heparin. Ambulate. DISPOSITION Expected [facility] to [facility]. . Current Inpatient Medications: Current Inpatient Medications Medications (Trade) Dose Ordered Sig/Gilbert Route Start Time Stop Time Status Last Admin Dose Admin Insulin Aspart (novoLOG ASPART) SLIDING SCALE If C... ACHS SC 12/14/16 21:00 01/13/17 20:59 Glucose (Glucose 40% Gel) 15-30 GRAMS 15 GRAMS... UD PRN PO 12/14/16 17:00 01/13/17 16:59 Glucose (Glucose Chew Tab) 4-8 Tablets 4 Tabl... UD PRN PO 12/14/16 17:00 01/13/17 16:59 Dextrose (Dextrose 50% 50ML Syringe) 25-50ML OF 50% DW IV FOR... UD PRN IV 12/14/16 17:00 01/13/17 16:59 Glucagon (Glucagon Inj) 1 mg UD PRN SQ 12/14/16 17:00 01/13/17 16:59 Heparin Sodium (Porcine) (Heparin Sq 5000 Unit/0.5ml) 5,000 unit Q12 SQ 12/14/16 21:00 01/13/17 20:59 12/15/16 20:29 5,000 UNIT Cefepime HCl (Consult) 1 ea UD PRN N/A 12/14/16 19:30 01/13/17 19:29 Vancomycin HCl (Consult) 1 ea UD PRN N/A 12/14/16 19:30 01/13/17 19:29 Cefepime HCl 1000 mg/Syringe 11 ml @ 5.5 mls/min Q24H IV 12/15/16 16:00 12/24/16 15:59 12/15/16 16:15 5.5 MLS/MIN Heparin Sodium (Porcine) (Heparin 100 Unit/ml 5ml Flush) 5 ml PRN PRN IV 12/14/16 21:00 01/13/17 20:59 12/16/16 05:41 5 ML Acetaminophen (Tylenol Tab) 650 mg Q6H PRN PO 12/14/16 22:30 01/13/17 22:29 12/16/16 08:47 650 MG Aspirin (Ecotrin Tab) 81 mg QAM PO 12/15/16 09:00 01/14/17 08:59 12/16/16 08:22 81 MG Carvedilol (Coreg Tab) 25 mg BID PO 12/15/16 09:00 01/14/17 08:59 12/16/16 08:17 25 MG Cholecalciferol (Vitamin D Tab) 1,000 inter.unit QAM PO 12/15/16 09:00 01/14/17 08:59 12/16/16 08:20 1,000 INTER.UNIT Cyanocobalamin (Vitamin B-12 Tab) 1,000 mcg QAM PO 12/15/16 09:00 01/14/17 08:59 12/16/16 08:20 1,000 MCG Docusate Sodium (coLACE CAP) 100 mg DAILY PRN PO 12/14/16 22:30 01/13/17 22:29 Salmeterol Xinafoate/ Fluticasone (Advair Diskus 250/50 Inh) 1 puff BID PRN INH 12/14/16 22:30 01/13/17 22:29 Fluticasone Propionate (Flonase Nasal [place]) 2 sprays DAILY PRN LATRICE 12/14/16 22:30 01/13/17 22:29 Hydralazine HCl (Apresoline Tab) 50 mg TID PO 12/15/16 09:00 01/14/17 08:59 12/16/16 13:41 50 MG Levothyroxine Sodium (Synthroid Tab) 150 mcg DAILYBB PO 12/15/16 06:30 01/14/17 06:29 12/16/16 08:20 150 MCG Lorazepam (Ativan Tab) 0.5 mg BID PO 12/15/16 09:00 01/14/17 08:59 12/16/16 08:19 0.5 MG Polyethylene (Miralax Powder Packet) 17 gm DAILY PRN PO 12/14/16 22:30 01/13/17 22:29 Rosuvastatin Calcium (Crestor Tab) 40 mg QAM PO 12/15/16 09:00 01/14/17 08:59 12/16/16 08:19 40 MG Sildenafil Citrate (Revatio Tab) 20 mg TID PO 12/15/16 09:00 01/14/17 08:59 12/16/16 13:41 20 MG Pantoprazole Sodium (Protonix Tab) 40 mg QAM PO 12/15/16 09:00 01/14/17 08:59 12/16/16 08:20 40 MG Ondansetron HCl (Zofran Inj) 4 mg Q4H PRN IV 12/15/16 04:30 01/14/17 04:29 12/15/16 04:55 4 MG Vancomycin HCl 750 mg/Sodium Chloride 265 ml @ 125 mls/hr DAILY@1800 IV 12/15/16 18:00 12/25/16 17:59 12/15/16 18:18 125 MLS/HR
[2016-12-16] MEDS: CEFEPIME IV 1,000 MG in SYRINGE 0 ML IV SCH (16:19)
[2016-12-16] MEDS: VANCOMYCIN INJ 750 MG in SODIUM CHLORIDE 0.9% 250ML 250 ML IV SCH (18:39)
[2016-12-17] VITALS (8 sets, daily range): BP systolic 116–161; BP diastolic 68–77; PULSE 68–82; TEMP 36.6–36.9; O2SAT 93–100
[2016-12-17] MEDS: LEVOTHYROXINE 200 MCG TAB PO SCH (05:58)
[2016-12-17] MEDS: INSULIN ASPART 100 UNITS/ML 3 ML PEN SC SCH ×4 (06:30→20:01)
[2016-12-17] MEDS: LORAZEPAM 0.5 MG TAB PO SCH ×2 (07:49→20:09)
[2016-12-17] MEDS: HEPARIN SOD 5000 UNIT/0.5 ML CARP SQ SCH ×2 (07:49→20:08)
[2016-12-17] MEDS: ASPIRIN 81 MG ECTAB PO SCH (07:50)
[2016-12-17] MEDS: ROSUVASTATIN CALCIUM 20 MG TAB PO SCH (07:50)
[2016-12-17] MEDS: SILDENAFIL CITRATE 20 MG TAB PO SCH ×3 (07:51→20:09)
[2016-12-17] MEDS: PANTOprazole SOD 40 MG TAB PO SCH (07:51)
[2016-12-17] MEDS: CYANOCOBALAMIN 500 MCG TAB (VIT B-12) PO SCH (07:52)
[2016-12-17] MEDS: CARVEDILOL 25 MG TAB PO SCH ×2 (07:52→20:09)
[2016-12-17] MEDS: CHOLECALCIFEROL 1000 INTER.UNIT TAB PO SCH (07:52)
--- NOTE | 2016-12-17 10:46 | Progress Note ---
Progress Note Date of Service Dec 17, 2016. Progress Note ID Consult Dictated #[id number] A/P: 1. RUE cellulitis -Can continue IV abx while inpatient, upon d/c would suggest doxy 100mg po bid x 14 days with food -Continue elevation RUE -Thank you
--- NOTE | 2016-12-17 10:54 | INFECT. DISEASE CONSULTATION ---
DATE OF CONSULTATION: 12/17/2016 DATE OF CONSULTATION: 12/17/2016 REQUESTING PHYSICIAN: Dr. Domingo. HISTORY OF PRESENT ILLNESS: This is a 76-year-old female who was admitted from [facility] secondary to a change in mental status and right arm swelling. The patient had significant change in mental status 1 day prior to examination per the H&P. The patient was recently on Keflex for treatment of right arm cellulitis; however, she denies this. She did have a Doppler performed in the Emergency Room and this was unremarkable for DVT. Upon admission to the hospital, she was placed on vancomycin and cefepime. She had a mild leukocytosis of 11.2 on admission. This has improved to 8.8. She has been afebrile since admission. Her blood and urine cultures have been unremarkable. On my examination today, she is out of bed to chair and states she will be discharged to home tomorrow. She states she does not feel that she requires an ID evaluation and refuses the majority of her examination. She does deny any fevers. She states she has some pain in the right elbow, but overall states she feels this is improving. She denies any drainage from the area. Her remaining review of systems is limited, but unremarkable. PAST MEDICAL HISTORY: Significant for carotid stenosis, COPD, type 2 diabetes, hypertension, coronary artery disease, hypothyroidism, kidney disease, lung cancer receiving chemotherapy, pulmonary hypertension, CHF. PAST SURGICAL HISTORY: Significant for endarterectomy, hysterectomy, pleurectomy with pleurodesis and thoracentesis. FAMILY HISTORY: Noncontributory. SOCIAL HISTORY: Significant for history of tobacco use. She currently lives at [facility]. ALLERGIES: She has no known drug allergies. MEDICATIONS: Include Synthroid, vancomycin, cefepime, aspirin, Coreg, vitamin D, vitamin B12, hydralazine, Ativan, Crestor, sildenafil, Protonix, Zofran, Tylenol, Colace, Advair, Flonase, MiraLax, subQ heparin. PHYSICAL EXAMINATION: VITAL SIGNS: He is afebrile, pulse 70, respiratory rate 20, blood pressure is 161/77, oxygen saturation is 100% on 3 liters nasal cannula. GENERAL: She is awake and alert. She is in no acute distress. HEAD, EYES, EARS, NOSE, AND THROAT: Mucous membranes are moist. Extraocular muscles are intact. She does refuse examination with the exception of exam of her right upper extremity. This does show significant swelling which she states is chronic. There is an area of erythema over the elbow. This is warm to touch, but it appears to be nontender. There is no fluctuance. There is no open wound or drainage. Sensation is intact. There is no lower extremity edema. LABORATORY STUDIES: CBC yesterday reveals a white blood cell count of 8.8, hemoglobin 8.2 and platelets of 110. Chemistry panel on the reveals a sodium of 137, potassium 3.5, chloride 97, bicarbonate 35, BUN 22, creatinine 1.5, glucose 106. Urinalysis was negative in the Emergency Room. Blood cultures from the are no growth to date x2 sets. A urine culture is negative and final. Chest x-ray done on the shows a right consolidation with known mass. There is no infiltrative disease. ASSESSMENT AND PLAN: Right upper extremity cellulitis with likely edema resulting from lung cancer. She can continue on intravenous antibiotics during her hospital stay. Upon discharge, I would recommend transitioning to oral antibiotics. She was on Keflex prior to admission with little response and I would include coverage for MRSA. My recommendation would be doxycycline 100 mg twice daily for a minimum of 14 days. She will continue elevation of the right upper extremity. No further ID recommendations at this time. Thank you for this consultation.
[2016-12-17 13:24] LABS: CREATININE 1.61 mg/dl (0.60-1.20)
[2016-12-17] MEDS: CEFEPIME IV 1,000 MG in SYRINGE 0 ML IV SCH (16:08)
[2016-12-17] MEDS ORDERED: VANCOMYCIN TROUGH ONE (17:30)
[2016-12-17] MEDS: DOXYCYCLINE HYCLATE 100 MG CAP PO SCH (17:39)
[2016-12-17 18:44] LABS: BUN/CREATININE RATIO 13.4 (10-20); C-REACTIVE PROTEIN 4.92 mg/dl (0-0.29); CREATININE 1.72 mg/dl (0.60-1.20); POTASSIUM 3.7 mmol/L (3.5-5.1)
--- NOTE | 2016-12-17 20:30 | Progress Note ---
Medicine Progress Note Date & Time of Visit: Dec 17, 2016 at 12:10 . Subjective Confused this morning. Not wearing O2. Tried to leave her room. Now with 1:1 staffing. Only ate a few bites of her lunch. Right arm feels better. Would like to be left alone. . Objective Last 8 Hrs Date Time Temp Pulse Resp B/P (MAP) Pulse Ox O2 Delivery O2 Flow Rate FiO2 12/17/16 20:00 Nasal Cannula 3.0 12/17/16 19:49 36.8 71 20 128/75 (92) 100 Nasal Cannula 3.5 12/17/16 16:00 98 Nasal Cannula 3.0 12/17/16 15:00 36.7 74 20 121/74 (90) 98 Nasal Cannula 3.0 12/17/16 12:31 36.8 68 18 145/71 (95) 93 Physical Exam: General- sitting in chair, no distress Neck- Lungs- pt would not allow assessment Heart- pt would not allow assessment Abdomen- pt would not allow assessment Extremities- moderate swelling and less erythema RUE Neuro- alert, confused . Laboratory Results: Last 24 Hours Test 12/17/16 07:30 12/17/16 11:49 12/17/16 12:47 12/17/16 16:50 Bedside Glucose 128 mg/dl 129 mg/dl 146 mg/dl Creatinine 1.61 mg/dl Est Creatinine Clear Calc Drug Dose 25.9 ml/min Estimated GFR () 35.4 Estimated GFR (Non- 30.5 Test 12/17/16 17:54 12/17/16 20:00 Erythrocyte Sedimentation Rate 58 mm/hr Sodium Level 134 mmol/L Potassium Level 3.7 mmol/L Chloride Level 95 mmol/L Carbon Dioxide Level 32 mmol/L Anion Gap 7.0 mmol/L Blood Urea Nitrogen 23 mg/dl Creatinine 1.72 mg/dl Est Creatinine Clear Calc Drug Dose 24.2 ml/min Estimated GFR () 32.7 Estimated GFR (Non- 28.2 BUN/Creatinine Ratio 13.4 Random Glucose 155 mg/dl Calcium Level 11.0 mg/dl C-Reactive Protein 4.92 mg/dl Vancomycin Level Trough 18.7 mcg/ml Bedside Glucose 134 mg/dl Assessment & Plan CELLULITIS RUE Presented with swelling and erythema of RUE. WBC 11,000. Low grade temp. Did not meet criteria for sepsis. Failed course of therapy with cephalexin at [facility]. US RUE negative for DVT. Received vancomycin and cefepime. Blood cultures negative thus far. Underlying RUE swelling could be due to vascular or lymphatic obstruction. Consider CT of chest to rule out progressive malignancy with compression of subclavian / brachiocephalic veins when patient can tolerate study. ID consulted for recommendations. Continue cefepime. Transition from IV vancomycin to PO doxycycline for gram + coverage. ALTERED MENTAL STATUS Noted to have hallucinations prior to admission. Probable encephalopathy / delirium secondary to cellulitis. Continue chronic lorazepam for anxiety, but will not escalate. Supervision as necessary for patient's safety. SUSPECTED CAD / ELEVATED TROPONIN History of segmental wall motion abnormalities on previous echo. No anginal symptoms. Serum troponin as high as 0.086. Total CPK and CPK-MB normal. EKG on admission showed NSR, RBBB, repolarization abnormalities. Echo did not show any wall motion abnormalities. Elevated troponin probably nonspecific elevation secondary to infection and not due to acute coronary syndrome. Continue aspirin, carvedilol, statin. CHF Chronic diastolic CHF, possibly secondary to hypertensive heart disease. Compensated. HYPERTENSION Continue carvedilol, hydralazine. 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 Receiving palliative chemo. Consider f/u CT in light of RUE swelling. COPD Pulmonary status stable. Continue O2, bronchodilators. PULMONARY HYPERTENSION Continue O2, sildenafil. CKD IV Serum creatinine 1.31 on admission. Creatinine today = 1.72. Follow. GERD Continue PPI. DM TYPE 2 Well-controlled. Hgb A1C = 6.0 11/15/16. Usually managed with glipizide- hold during hospital stay. FBS today = 128. Continue NovoLog coverage PRN. HYPOTHYROIDISM TSH = 11. Increase levothyroxine from 150 mcg to 200 mcg daily. Follow. DYSLIPIDEMIA Continue statin. ANEMIA Hgb 7.9-8.6. Chronic, multifactorial. Underlying malignancy. No indication for transfusion at this time per guidelines. Follow. DEMENTIA Intermittent delirium. Avoid meds with anticholinergic side effects. VTE PROPHYLAXIS SQ heparin. Ambulate. DISPOSITION Expected return to [facility]. . Current Inpatient Medications: Current Inpatient Medications Medications (Trade) Dose Ordered Sig/Gilbert Route Start Time Stop Time Status Last Admin Dose Admin Insulin Aspart (novoLOG ASPART) SLIDING SCALE If C... ACHS AL 12/14/16 21:00 01/13/17 20:59 12/17/16 17:38 2 UNITS Glucose (Glucose 40% Gel) 15-30 GRAMS 15 GRAMS... UD PRN PO 12/14/16 17:00 01/13/17 16:59 Glucose (Glucose Chew Tab) 4-8 Tablets 4 Tabl... UD PRN PO 12/14/16 17:00 01/13/17 16:59 Dextrose (Dextrose 50% 50ML Syringe) 25-50ML OF 50% DW IV FOR... UD PRN IV 12/14/16 17:00 01/13/17 16:59 Glucagon (Glucagon Inj) 1 mg UD PRN SQ 12/14/16 17:00 01/13/17 16:59 Heparin Sodium (Porcine) (Heparin Sq 5000 Unit/0.5ml) 5,000 unit Q12 SQ 12/14/16 21:00 01/13/17 20:59 12/17/16 20:08 5,000 UNIT Cefepime HCl (Consult) 1 ea UD PRN N/A 12/14/16 19:30 01/13/17 19:29 Cefepime HCl 1000 mg/Syringe 11 ml @ 5.5 mls/min Q24H IV 12/15/16 16:00 12/24/16 15:59 12/17/16 16:08 5.5 MLS/MIN Heparin Sodium (Porcine) (Heparin 100 Unit/ml 5ml Flush) 5 ml PRN PRN IV 12/14/16 21:00 01/13/17 20:59 12/17/16 16:52 5 ML Acetaminophen (Tylenol Tab) 650 mg Q6H PRN PO 12/14/16 22:30 01/13/17 22:29 12/16/16 18:39 650 MG Aspirin (Ecotrin Tab) 81 mg QAM PO 12/15/16 09:00 01/14/17 08:59 12/17/16 07:50 81 MG Carvedilol (Coreg Tab) 25 mg BID PO 12/15/16 09:00 01/14/17 08:59 12/17/16 20:09 25 MG Cholecalciferol (Vitamin D Tab) 1,000 inter.unit QAM PO 12/15/16 09:00 01/14/17 08:59 12/17/16 07:52 1,000 INTER.UNIT Cyanocobalamin (Vitamin B-12 Tab) 1,000 mcg QAM PO 12/15/16 09:00 01/14/17 08:59 12/17/16 07:52 1,000 MCG Docusate Sodium (coLACE CAP) 100 mg DAILY PRN PO 12/14/16 22:30 01/13/17 22:29 Salmeterol Xinafoate/ Fluticasone (Advair Diskus 250/50 Inh) 1 puff BID PRN INH 12/14/16 22:30 01/13/17 22:29 Fluticasone Propionate (Flonase Nasal [place]) 2 sprays DAILY PRN LATRICE 12/14/16 22:30 01/13/17 22:29 Hydralazine HCl (Apresoline Tab) 50 mg TID PO 12/15/16 09:00 01/14/17 08:59 12/17/16 20:09 50 MG Lorazepam (Ativan Tab) 0.5 mg BID PO 12/15/16 09:00 01/14/17 08:59 12/17/16 20:09 0.5 MG Polyethylene (Miralax Powder Packet) 17 gm DAILY PRN PO 12/14/16 22:30 01/13/17 22:29 Rosuvastatin Calcium (Crestor Tab) 40 mg QAM PO 12/15/16 09:00 01/14/17 08:59 12/17/16 07:50 40 MG Sildenafil Citrate (Revatio Tab) 20 mg TID PO 12/15/16 09:00 01/14/17 08:59 12/17/16 20:09 20 MG Pantoprazole Sodium (Protonix Tab) 40 mg QAM PO 12/15/16 09:00 01/14/17 08:59 12/17/16 07:51 40 MG Ondansetron HCl (Zofran Inj) 4 mg Q4H PRN IV 12/15/16 04:30 01/14/17 04:29 12/15/16 04:55 4 MG Levothyroxine Sodium (Synthroid Tab) 200 mcg DAILYBB PO 12/17/16 06:30 01/16/17 06:29 12/17/16 05:58 200 MCG Doxycycline Hyclate (Vibramycin Cap) 100 mg BID@0600,1800 PO 12/17/16 18:00 12/27/16 17:59 12/17/16 17:39 100 MG
[2016-12-18 04:04] VITALS: BP 122/52; PULSE 66; TEMP 37.1; O2SAT 98
[2016-12-18] MEDS: LEVOTHYROXINE 200 MCG TAB PO SCH (05:59)
[2016-12-18] MEDS: DOXYCYCLINE HYCLATE 100 MG CAP PO SCH ×2 (05:59→17:09)
[2016-12-18 06:40] LABS: HEMATOCRIT 29.3 % (37-47); MEAN CELL VOLUME 102.8 fL (80-100); MEAN CORPUSCULAR HEMOGLOBIN 29.8 pg (25-34); MEAN PLATELET VOLUME 9.4 fL (7.4-10.4); PLATELET COUNT 137 K/uL (130-400); RED BLOOD COUNT 2.85 M/uL (4.2-5.4); WHITE BLOOD COUNT 10.14 K/uL (4.8-10.8)
[2016-12-18 07:14] LABS: BUN/CREATININE RATIO 13.5 (10-20); CALCIUM 11.4 mg/dl (8.5-10.1); CREATININE 1.52 mg/dl (0.60-1.20); POTASSIUM 3.4 mmol/L (3.5-5.1)
[2016-12-18] MEDS: ASPIRIN 81 MG ECTAB PO SCH (07:37)
[2016-12-18] MEDS: CARVEDILOL 25 MG TAB PO SCH ×2 (07:37→20:41)
[2016-12-18] MEDS: ROSUVASTATIN CALCIUM 20 MG TAB PO SCH (07:37)
[2016-12-18] MEDS: SILDENAFIL CITRATE 20 MG TAB PO SCH ×3 (07:37→20:40)
[2016-12-18] MEDS: CHOLECALCIFEROL 1000 INTER.UNIT TAB PO SCH (07:37)
[2016-12-18] MEDS: PANTOprazole SOD 40 MG TAB PO SCH (07:37)
[2016-12-18] MEDS: CYANOCOBALAMIN 500 MCG TAB (VIT B-12) PO SCH (07:37)
[2016-12-18] MEDS: HEPARIN SOD 5000 UNIT/0.5 ML CARP SQ SCH ×2 (07:38→20:42)
[2016-12-18] MEDS: LORAZEPAM 0.5 MG TAB PO SCH ×2 (07:41→20:39)
[2016-12-18 07:42] VITALS: BP 153/70; PULSE 71; TEMP 36.6; O2SAT 99
[2016-12-18] MEDS: INSULIN ASPART 100 UNITS/ML 3 ML PEN SC SCH ×4 (08:22→20:41)
[2016-12-18 11:31] VITALS: BP 118/68; PULSE 64; TEMP 36.6; O2SAT 98
[2016-12-18 15:31] VITALS: BP 144/70; PULSE 70; TEMP 36.8; O2SAT 97
[2016-12-18] MEDS: CEFEPIME IV 1,000 MG in SYRINGE 0 ML IV SCH (16:36)
[2016-12-18] MEDS: ACETAMINOPHEN 325 MG TAB PO PRN (17:08)
[2016-12-18] MEDS: DICLOFENAC SOD 1% GEL 100 GM TUBE EXT PRN (17:09)
--- NOTE | 2016-12-18 19:21 | Progress Note ---
Medicine Progress Note Date & Time of Visit: Dec 18, 2016 at 16:10 . Subjective Complains of being chilled. No fever. Denies pain/discomfort right upper extremity. No chest pain. No cough or shortness of breath. No nausea or vomiting. No reported diarrhea. . Objective Last 8 Hrs Date Time Temp Pulse Resp B/P (MAP) Pulse Ox O2 Delivery O2 Flow Rate FiO2 12/18/16 16:29 Nasal Cannula 3.0 12/18/16 15:31 36.8 70 20 144/70 (94) 97 Nasal Cannula 2.0 12/18/16 12:40 Nasal Cannula 2.0 12/18/16 11:31 36.6 64 16 118/68 (85) 98 Nasal Cannula 2.0 Physical Exam: General- sitting in chair, no distress Neck- no JVD Lungs- mild wheezing Heart- regular, no gallop Abdomen- normal bowel sounds, soft, nontender Extremities- moderate swelling and less erythema RUE; trace pretibial edema; no calf tenderness Neuro- alert, pleasantly confused, cooperative, no apparent hallucinations . Laboratory Results: Last 24 Hours Test 12/17/16 20:00 12/18/16 05:47 12/18/16 07:18 12/18/16 11:38 Bedside Glucose 134 mg/dl 125 mg/dl 109 mg/dl White Blood Count 10.14 K/uL Red Blood Count 2.85 M/uL Hemoglobin 8.5 g/dL Hematocrit 29.3 % Mean Corpuscular Volume 102.8 fL Mean Corpuscular Hemoglobin 29.8 pg Mean Corpuscular Hemoglobin Concent 29.0 g/dl RDW Standard Deviation 70.5 fL RDW Coefficient of Variation 18.8 % Platelet Count 137 K/uL Mean Platelet Volume 9.4 fL Sodium Level 135 mmol/L Potassium Level 3.4 mmol/L Chloride Level 95 mmol/L Carbon Dioxide Level 32 mmol/L Anion Gap 8.0 mmol/L Blood Urea Nitrogen 21 mg/dl Creatinine 1.52 mg/dl Est Creatinine Clear Calc Drug Dose 27.4 ml/min Estimated GFR () 37.9 Estimated GFR (Non- 32.7 BUN/Creatinine Ratio 13.5 Random Glucose 117 mg/dl Calcium Level 11.4 mg/dl Test 12/18/16 16:40 Bedside Glucose 149 mg/dl Assessment & Plan CELLULITIS RUE Presented with swelling and erythema of RUE. WBC 11,000. Low grade temp. Did not meet criteria for sepsis. Failed course of therapy with cephalexin at long-term. US RUE negative for DVT. Received vancomycin and cefepime. Blood cultures negative thus far. Underlying RUE swelling could be due to vascular or lymphatic obstruction. Consider CT of chest to rule out progressive malignancy with compression of subclavian / brachiocephalic veins when patient can tolerate study. ID consulted for recommendations. Transitioned from IV vancomycin to PO doxycycline for gram + coverage. Continue cefepime. ALTERED MENTAL STATUS Noted to have hallucinations prior to admission. Probable encephalopathy / delirium secondary to cellulitis. Continue chronic lorazepam for anxiety, but will not escalate. Supervision as necessary for patient's safety. SUSPECTED CAD / ELEVATED TROPONIN History of segmental wall motion abnormalities on previous echo. No anginal symptoms. Serum troponin as high as 0.086. Total CPK and CPK-MB normal. EKG on admission showed NSR, RBBB, repolarization abnormalities. Echo did not show any wall motion abnormalities. Elevated troponin probably nonspecific elevation secondary to infection and not due to acute coronary syndrome. Continue aspirin, carvedilol, statin. CHF Chronic diastolic CHF, possibly secondary to hypertensive heart disease. Compensated. HYPERTENSION Continue carvedilol, hydralazine. 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 Receiving palliative chemo. Due for f/u PET scan which will have to be performed as an outpatient. COPD Pulmonary status stable. Continue O2, bronchodilators. PULMONARY HYPERTENSION Continue O2, sildenafil. GERD Continue PPI. CKD IV Serum creatinine 1.31 on admission. Creatinine today = 1.52. Follow. HYPERCALCEMIA Serum calcium as high as 11.4. Differential diagnosis includes bone metastases and PTHrP. Hold cholecalciferol. Maintain hydration. Check PTH and PTHrP. Discuss with Medical Oncology. DM TYPE 2 Well-controlled. Hgb A1C = 6.0 11/15/16. Usually managed with glipizide- hold during hospital stay. FBS today = 125. Continue NovoLog coverage PRN. HYPOTHYROIDISM TSH = 11. Increase levothyroxine from 150 mcg to 200 mcg daily. Follow. DYSLIPIDEMIA Continue statin. ANEMIA Hgb 7.9-8.6. Chronic, multifactorial. Underlying malignancy. Hemoglobin today = 8.5. No indication for transfusion at this time per guidelines. Follow. DEMENTIA Intermittent delirium. Avoid meds with anticholinergic side effects. VTE PROPHYLAXIS SQ heparin. Ambulate. DISPOSITION Expected return to [facility]. . Current Inpatient Medications: Current Inpatient Medications Medications (Trade) Dose Ordered Sig/Gilbert Route Start Time Stop Time Status Last Admin Dose Admin Insulin Aspart (novoLOG ASPART) SLIDING SCALE If C... ACHS SC 12/14/16 21:00 01/13/17 20:59 12/18/16 17:10 3 UNITS Glucose (Glucose 40% Gel) 15-30 GRAMS 15 GRAMS... UD PRN PO 12/14/16 17:00 01/13/17 16:59 Glucose (Glucose Chew Tab) 4-8 Tablets 4 Tabl... UD PRN PO 12/14/16 17:00 01/13/17 16:59 Dextrose (Dextrose 50% 50ML Syringe) 25-50ML OF 50% DW IV FOR... UD PRN IV 12/14/16 17:00 01/13/17 16:59 Glucagon (Glucagon Inj) 1 mg UD PRN SQ 12/14/16 17:00 01/13/17 16:59 Heparin Sodium (Porcine) (Heparin Sq 5000 Unit/0.5ml) 5,000 unit Q12 SQ 12/14/16 21:00 01/13/17 20:59 12/18/16 07:38 5,000 UNIT Cefepime HCl (Consult) 1 ea UD PRN N/A 12/14/16 19:30 01/13/17 19:29 Cefepime HCl 1000 mg/Syringe 11 ml @ 5.5 mls/min Q24H IV 12/15/16 16:00 12/24/16 15:59 12/18/16 16:36 5.5 MLS/MIN Heparin Sodium (Porcine) (Heparin 100 Unit/ml 5ml Flush) 5 ml PRN PRN IV 12/14/16 21:00 01/13/17 20:59 12/18/16 05:43 5 ML Acetaminophen (Tylenol Tab) 650 mg Q6H PRN PO 12/14/16 22:30 01/13/17 22:29 12/18/16 17:08 650 MG Aspirin (Ecotrin Tab) 81 mg QAM PO 12/15/16 09:00 01/14/17 08:59 12/18/16 07:37 81 MG Carvedilol (Coreg Tab) 25 mg BID PO 12/15/16 09:00 01/14/17 08:59 12/18/16 07:37 25 MG Cholecalciferol (Vitamin D Tab) 1,000 inter.unit QAM PO 12/15/16 09:00 01/14/17 08:59 12/18/16 07:37 1,000 INTER.UNIT Cyanocobalamin (Vitamin B-12 Tab) 1,000 mcg QAM PO 12/15/16 09:00 01/14/17 08:59 12/18/16 07:37 1,000 MCG Docusate Sodium (coLACE CAP) 100 mg DAILY PRN PO 12/14/16 22:30 01/13/17 22:29 Salmeterol Xinafoate/ Fluticasone (Advair Diskus 250/50 Inh) 1 puff BID PRN INH 12/14/16 22:30 01/13/17 22:29 Fluticasone Propionate (Flonase Nasal [place]) 2 sprays DAILY PRN LATRICE 12/14/16 22:30 01/13/17 22:29 Hydralazine HCl (Apresoline Tab) 50 mg TID PO 12/15/16 09:00 01/14/17 08:59 12/18/16 13:04 50 MG Lorazepam (Ativan Tab) 0.5 mg BID PO 12/15/16 09:00 01/14/17 08:59 12/18/16 07:41 0.5 MG Polyethylene (Miralax Powder Packet) 17 gm DAILY PRN PO 12/14/16 22:30 01/13/17 22:29 Rosuvastatin Calcium (Crestor Tab) 40 mg QAM PO 12/15/16 09:00 01/14/17 08:59 12/18/16 07:37 40 MG Sildenafil Citrate (Revatio Tab) 20 mg TID PO 12/15/16 09:00 01/14/17 08:59 12/18/16 13:04 20 MG Pantoprazole Sodium (Protonix Tab) 40 mg QAM PO 12/15/16 09:00 01/14/17 08:59 12/18/16 07:37 40 MG Ondansetron HCl (Zofran Inj) 4 mg Q4H PRN IV 12/15/16 04:30 01/14/17 04:29 12/15/16 04:55 4 MG Levothyroxine Sodium (Synthroid Tab) 200 mcg DAILYBB PO 12/17/16 06:30 01/16/17 06:29 12/18/16 05:59 200 MCG Doxycycline Hyclate (Vibramycin Cap) 100 mg BID@0600,1800 PO 12/17/16 18:00 12/27/16 17:59 12/18/16 17:09 100 MG Diclofenac Sodium (Voltaren 1% Top Gel) 1 appln BID PRN EXT 12/18/16 10:15 01/17/17 10:14 12/18/16 17:09 1 APPLN
[2016-12-18 20:16] VITALS: BP 126/67; PULSE 64; TEMP 36.9; O2SAT 97
[2016-12-19] VITALS (8 sets, daily range): BP systolic 106–147; BP diastolic 52–74; PULSE 62–71; TEMP 36.2–36.9; O2SAT 92–98
[2016-12-19] MEDS: ACETAMINOPHEN 325 MG TAB PO PRN ×3 (03:25→17:52)
[2016-12-19] MEDS: LEVOTHYROXINE 200 MCG TAB PO SCH (06:03)
[2016-12-19] MEDS: DOXYCYCLINE HYCLATE 100 MG CAP PO SCH ×2 (06:03→17:39)
[2016-12-19 06:41] LABS: BUN/CREATININE RATIO 14.5 (10-20); CALCIUM 11.6 mg/dl (8.5-10.1); CREATININE 1.41 mg/dl (0.60-1.20); POTASSIUM 3.7 mmol/L (3.5-5.1)
[2016-12-19] MEDS: DICLOFENAC SOD 1% GEL 100 GM TUBE EXT PRN ×2 (07:38→22:41)
[2016-12-19] MEDS: CARVEDILOL 25 MG TAB PO SCH ×2 (07:38→20:28)
[2016-12-19] MEDS: LORAZEPAM 0.5 MG TAB PO SCH ×2 (07:38→20:25)
[2016-12-19] MEDS: ASPIRIN 81 MG ECTAB PO SCH (07:39)
[2016-12-19] MEDS: PANTOprazole SOD 40 MG TAB PO SCH (07:39)
[2016-12-19] MEDS: ROSUVASTATIN CALCIUM 20 MG TAB PO SCH (07:39)
[2016-12-19] MEDS: CYANOCOBALAMIN 500 MCG TAB (VIT B-12) PO SCH (07:40)
[2016-12-19] MEDS: SILDENAFIL CITRATE 20 MG TAB PO SCH ×3 (07:40→20:29)
[2016-12-19] MEDS: INSULIN ASPART 100 UNITS/ML 3 ML PEN SC SCH ×4 (08:20→20:27)
[2016-12-19] MEDS: HEPARIN SOD 5000 UNIT/0.5 ML CARP SQ SCH ×2 (08:21→20:35)
[2016-12-19] MEDS: CEFEPIME IV 1,000 MG in SYRINGE 0 ML IV SCH (16:23)
--- NOTE | 2016-12-19 17:40 | Progress Note ---
Medicine Progress Note Date & Time of Visit: Dec 19, 2016 at 14:00 . Subjective Has some discomfort in her right arm when she moves it. No fever. No chest pain. No cough or shortness of breath. No nausea or vomiting. No diarrhea; last bowel movement yesterday. No urinary symptoms. . Objective Last 8 Hrs Date Time Temp Pulse Resp B/P (MAP) Pulse Ox O2 Delivery O2 Flow Rate FiO2 12/19/16 16:00 98 Nasal Cannula 2.0 12/19/16 15:02 36.9 65 20 147/70 (95) 98 Nasal Cannula 2.0 12/19/16 12:00 92 Nasal Cannula 2.0 12/19/16 12:00 36.7 65 20 140/71 (94) 98 Nasal Cannula 2.0 Physical Exam: General- sitting in chair, no distress Neck- no JVD Lungs- mild wheezing Heart- regular, no gallop Abdomen- normal bowel sounds, soft, nontender Extremities- moderate swelling + mild erythema RUE; trace pretibial edema; no calf tenderness Neuro- alert, pleasantly confused, cooperative . Laboratory Results: Last 24 Hours Test 12/18/16 20:35 12/19/16 05:32 12/19/16 07:11 12/19/16 16:30 Bedside Glucose 121 mg/dl 122 mg/dl 123 mg/dl Sodium Level 134 mmol/L Potassium Level 3.7 mmol/L Chloride Level 94 mmol/L Carbon Dioxide Level 32 mmol/L Anion Gap 8.0 mmol/L Blood Urea Nitrogen 20 mg/dl Creatinine 1.41 mg/dl Est Creatinine Clear Calc Drug Dose 29.7 ml/min Estimated GFR () 41.5 Estimated GFR (Non- 35.8 BUN/Creatinine Ratio 14.5 Random Glucose 111 mg/dl Calcium Level 11.6 mg/dl Parathyroid Hormone (Intact) < 5.5 pg/mL Assessment & Plan CELLULITIS RUE Presented with swelling and erythema of RUE. WBC 11,000. Low grade temp. Did not meet criteria for sepsis. Failed course of therapy with cephalexin at skilled nursing. US RUE negative for DVT. Received vancomycin and cefepime. Blood cultures negative thus far. Underlying RUE swelling could be due to vascular or lymphatic obstruction. Due for follow-up outpatient PET scan. ID consulted for recommendations. Transitioned from IV vancomycin to PO doxycycline for gram + coverage. Continue cefepime. ALTERED MENTAL STATUS Noted to have hallucinations prior to admission. Probable encephalopathy / delirium secondary to cellulitis. Continue chronic lorazepam for anxiety, but will not escalate. Supervision as necessary for patient's safety. SUSPECTED CAD / ELEVATED TROPONIN History of segmental wall motion abnormalities on previous echo. No anginal symptoms. Serum troponin as high as 0.086. Total CPK and CPK-MB normal. EKG on admission showed NSR, RBBB, repolarization abnormalities. Echo did not show any wall motion abnormalities. Elevated troponin probably nonspecific elevation secondary to infection and not due to acute coronary syndrome. Continue aspirin, carvedilol, statin. CHF Chronic diastolic CHF, possibly secondary to hypertensive heart disease. Compensated. HYPERTENSION Continue carvedilol, hydralazine. 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 Receiving palliative chemo. Due for f/u PET scan which will have to be performed as an outpatient. COPD Pulmonary status stable. Titrate O2 to keep O2 sats around 90%. Continue bronchodilators. PULMONARY HYPERTENSION Continue O2, sildenafil. GERD Continue PPI. CKD IV Serum creatinine 1.31 on admission. Creatinine today = 1.41. Follow. HYPERCALCEMIA Serum calcium as high as 11.6. Differential diagnosis includes bone metastases and PTHrP. Hold cholecalciferol. Maintain hydration. PTH < 5.5. PTHrP pending. 1,25-OH D pending. Discuss with Medical Oncology. DM TYPE 2 Well-controlled. Hgb A1C = 6.0 11/15/16. Usually managed with glipizide- hold during hospital stay. FBS today = 122. Continue NovoLog coverage PRN. HYPOTHYROIDISM TSH = 11. Increased levothyroxine from 150 mcg to 200 mcg daily. Follow. DYSLIPIDEMIA Continue statin. ANEMIA Hgb 7.9-8.6. Chronic, multifactorial. Underlying malignancy. Hemoglobin 12/18 = 8.5. No indication for transfusion at this time per guidelines. Follow. DEMENTIA Intermittent delirium. Avoid meds with anticholinergic side effects. VTE PROPHYLAXIS SQ heparin. Ambulate. DISPOSITION Expected return to [facility]. Family Medicine follow-up with Dr. Verdugo. Medical Oncology follow-up with Dr. Veto Ortega. . Current Inpatient Medications: Current Inpatient Medications Medications (Trade) Dose Ordered Sig/Gilbert Route Start Time Stop Time Status Last Admin Dose Admin Insulin Aspart (novoLOG ASPART) SLIDING SCALE If C... ACHS SC 12/14/16 21:00 01/13/17 20:59 12/19/16 08:20 2 UNITS Glucose (Glucose 40% Gel) 15-30 GRAMS 15 GRAMS... UD PRN PO 12/14/16 17:00 01/13/17 16:59 Glucose (Glucose Chew Tab) 4-8 Tablets 4 Tabl... UD PRN PO 12/14/16 17:00 01/13/17 16:59 Dextrose (Dextrose 50% 50ML Syringe) 25-50ML OF 50% DW IV FOR... UD PRN IV 12/14/16 17:00 01/13/17 16:59 Glucagon (Glucagon Inj) 1 mg UD PRN SQ 12/14/16 17:00 01/13/17 16:59 Heparin Sodium (Porcine) (Heparin Sq 5000 Unit/0.5ml) 5,000 unit Q12 SQ 12/14/16 21:00 01/13/17 20:59 12/19/16 08:21 5,000 UNIT Cefepime HCl (Consult) 1 ea UD PRN N/A 12/14/16 19:30 01/13/17 19:29 Cefepime HCl 1000 mg/Syringe 11 ml @ 5.5 mls/min Q24H IV 12/15/16 16:00 12/24/16 15:59 12/19/16 16:23 5.5 MLS/MIN Heparin Sodium (Porcine) (Heparin 100 Unit/ml 5ml Flush) 5 ml PRN PRN IV 12/14/16 21:00 01/13/17 20:59 12/19/16 16:23 5 ML Acetaminophen (Tylenol Tab) 650 mg Q6H PRN PO 12/14/16 22:30 01/13/17 22:29 12/19/16 12:15 650 MG Aspirin (Ecotrin Tab) 81 mg QAM PO 12/15/16 09:00 01/14/17 08:59 12/19/16 07:39 81 MG Carvedilol (Coreg Tab) 25 mg BID PO 12/15/16 09:00 01/14/17 08:59 12/19/16 07:38 25 MG Cyanocobalamin (Vitamin B-12 Tab) 1,000 mcg QAM PO 12/15/16 09:00 12/8/17 08:59 12/19/16 07:40 1,000 MCG Docusate Sodium (coLACE CAP) 100 mg DAILY PRN PO 12/14/16 22:30 01/13/17 22:29 Salmeterol Xinafoate/ Fluticasone (Advair Diskus 250/50 Inh) 1 puff BID PRN INH 12/14/16 22:30 01/13/17 22:29 Fluticasone Propionate (Flonase Nasal [place]) 2 sprays DAILY PRN LATRICE 12/14/16 22:30 01/13/17 22:29 Hydralazine HCl (Apresoline Tab) 50 mg TID PO 12/15/16 09:00 01/14/17 08:59 12/19/16 14:02 50 MG Lorazepam (Ativan Tab) 0.5 mg BID PO 12/15/16 09:00 01/14/17 08:59 12/19/16 07:38 0.5 MG Polyethylene (Miralax Powder Packet) 17 gm DAILY PRN PO 12/14/16 22:30 01/13/17 22:29 Rosuvastatin Calcium (Crestor Tab) 40 mg QAM PO 12/15/16 09:00 01/14/17 08:59 12/19/16 07:39 40 MG Sildenafil Citrate (Revatio Tab) 20 mg TID PO 12/15/16 09:00 01/14/17 08:59 12/19/16 14:02 20 MG Pantoprazole Sodium (Protonix Tab) 40 mg QAM PO 12/15/16 09:00 01/14/17 08:59 12/19/16 07:39 40 MG Ondansetron HCl (Zofran Inj) 4 mg Q4H PRN IV 12/15/16 04:30 01/14/17 04:29 12/15/16 04:55 4 MG Levothyroxine Sodium (Synthroid Tab) 200 mcg DAILYBB PO 12/17/16 06:30 01/16/17 06:29 12/19/16 06:03 200 MCG Doxycycline Hyclate (Vibramycin Cap) 100 mg BID@0600,1800 PO 12/17/16 18:00 12/27/16 17:59 12/19/16 06:03 100 MG Diclofenac Sodium (Voltaren 1% Top Gel) 1 appln BID PRN EXT 12/18/16 10:15 01/17/17 10:14 12/19/16 07:38 1 APPLN
[2016-12-20 00:01] VITALS: BP 107/51; PULSE 63; TEMP 36.6; O2SAT 96
[2016-12-20] MEDS: ACETAMINOPHEN 325 MG TAB PO PRN ×3 (00:04→22:20)
[2016-12-20] MEDS: LEVOTHYROXINE 200 MCG TAB PO SCH (05:34)
[2016-12-20] MEDS: DOXYCYCLINE HYCLATE 100 MG CAP PO SCH ×2 (05:34→18:05)
[2016-12-20 06:26] LABS: BUN/CREATININE RATIO 14.5 (10-20); CALCIUM 11.9 mg/dl (8.5-10.1); CREATININE 1.38 mg/dl (0.60-1.20); POTASSIUM 3.8 mmol/L (3.5-5.1)
[2016-12-20 07:34] VITALS: BP 109/53; PULSE 60; TEMP 36.6; O2SAT 98
[2016-12-20] MEDS: ASPIRIN 81 MG ECTAB PO SCH (09:07)
[2016-12-20] MEDS: ROSUVASTATIN CALCIUM 20 MG TAB PO SCH (09:08)
[2016-12-20] MEDS: SILDENAFIL CITRATE 20 MG TAB PO SCH ×3 (09:08→21:29)
[2016-12-20] MEDS: LORAZEPAM 0.5 MG TAB PO SCH ×2 (09:08→21:32)
[2016-12-20] MEDS: PANTOprazole SOD 40 MG TAB PO SCH (09:08)
[2016-12-20] MEDS: CYANOCOBALAMIN 500 MCG TAB (VIT B-12) PO SCH (09:08)
[2016-12-20] MEDS: DICLOFENAC SOD 1% GEL 100 GM TUBE EXT PRN ×2 (09:11→21:29)
[2016-12-20] MEDS: INSULIN ASPART 100 UNITS/ML 3 ML PEN SC SCH ×4 (09:13→20:53)
[2016-12-20] MEDS: HEPARIN SOD 5000 UNIT/0.5 ML CARP SQ SCH ×2 (09:14→21:35)
[2016-12-20] MEDS: CARVEDILOL 25 MG TAB PO SCH ×2 (09:20→21:29)
[2016-12-20 09:21] VITALS: BP 120/67; PULSE 69
[2016-12-20 15:00] VITALS: BP 119/75; PULSE 64; TEMP 36.4; O2SAT 97
[2016-12-20] MEDS: ONDANSETRON INJ 2 MG/ML 2 ML VIAL IV PRN (18:05)
--- NOTE | 2016-12-20 19:32 | Medical Consult ---
Consultation Date of Consultation: Dec 20, 2016. Attending Physician: Ramin Domingo M.D. History of Present Illness Hematology/Oncology consult:. Evaluation management hypercalcemia known case of the small cell lung cancer. Date of consultation: 12/20/[address] Domingo. HPI: 76-year-old female a case of stage IV small cell lung cancer (she had malignant right pleural effusion at that time the diagnosis) she is a [facility] resident, she received systemic chemotherapy in the form of carboplatin and etoposide, also has few other comorbid conditions in the form of diabetes mellitus, COPD, congestive heart failure, hypertension, pulmonary hypertension, came to the ER on 12/14/2016 for altered mental status, swelling of the right proximal arm. Gradual improvement of the mental status noted over the last few days but once again becoming more confused, recent the blood workup showed new onset of hypercalcemia, has chronic bilateral lower extremity leg edema, she is on oxygen therapy, denies any increasing shortness of breath, no fever, she denies any increasing headache, no nausea or vomiting. Does complain of some pain in the right proximal upper extremity. Small cell lung cancer treatment: Current treatment: -Started on etoposide and carboplatin 03/16/2016. ~ Presently she is receiving carboplatin on day 1, etoposide for 2 days, repeating chemotherapy every 28 days. Last cycle of chemotherapy received on 10/12/2016. She is also receiving Procrit therapy (03957 units every weekly) for the anemia related to the underlying abnormal kidney function test as well as chemotherapy- induced anemia REVIEW OF SYSTEMS: Because of some change in mental status, she is not answering the questions properly, in general she is seeing quite comfortably, does not appear to be in any distress, has bilateral leg edema, feeling weak and tired, on oxygen therapy, denies any increasing chest pain, no nausea or vomiting. Denies any abdominal discomfort no bleeding from any sites. Past medical and surgical history: - Hypertension, hypothyroidism, small cell lung cancer as described above, COPD , carotid stenosis, diabetes mellitus, carotid artery disease. Malignant right pleural effusion, pulmonary hypertension. -S/P carotid endarterectomy (on both sides), DONAVON/BSO, S/P right pleurodesis. Social history: Family history: Not significant Personal history: Previous history of smoking present. No ETOH abuse Medications: Please review her chart for detailed list of medications. Allergies: None On exam: - Alert and oriented x3, thin built woman, not in any distress. Sitting comfortably in the chair, receiving nasal cannula supplemental oxygen, - HEENT: no icterus, mild pallor noted, Throat: Normal. - Neck: No palpable cervical lymphadenopathy. - Chest: With metastasis noted. - Abdomen: soft, nontender, no hepatomegaly, no splenomegaly. - No focal neuro deficit. - Extremities: no finger clubbing, bilateral leg edema present. Right proximal upper extremity swelling with some local edematous changes noted. Lab: Blood workup done on 12/14/2016: -WBC 11,200, H&H of 8.6/29.3, Platelet count of 132,000, Blood workup done on 12/18/2006: -WBC 01862, H&H of 8.5/29, Platelet count of 137,000. -BUN/Creat: 20/1.3, calcium 11.9 (12/20/2016) -intact PTH--> less than 5.5 -PTH RP--> pending. Vitamin-D level--> pending. Calcium level--> 9.9 (12/15/2016)--> 11.6 (12/19/2016)--> 11.9 (12/20/2016). Imaging: -Right upper extremity Doppler evaluation done on 12/14/2016 showed no evidence of DVT. -Chest x-ray done on 12/14/2016 showed right upper lobe consolidation with chronic hilar fullness. - Right elbow x-ray done on 12/14/2016--> mild DJD but no acute fracture dislocation, some periosteal thickening in the distal humerus noted -CT scan of the head done without intravenous contrast on 12/14/2016--> no acute changes noted. ASSESSMENT AND PLAN: 76-year-old female, a case of small cell carcinoma of the lung involving the right side with right malignant pleural effusion, S/P pleurodesis on the right side, bilateral lung nodules and mediastinal lymphadenopathy noted, no extra pulmonary disease noted in the imaging studies done at that time the diagnosis, no bony metastatic disease or brain masses noted at that time the diagnosis (February,), she received systemic chemotherapy in the form of carboplatin etoposide between March,, early October,. Earlier PET-CT scan done in Jun, 2016 showed good response, recently she was scheduled for another follow-up imaging study but she could not have it completed, now she is admitted Hospital for some altered mental status, she had a normal calcium level when she was admitted, now it has further increased to around 11.9 mg/dL, has abnormal kidney function test, latest serum creatinine level is around 1.5 mg/dL. Recent CT scan of the head done without intravenous contrast showed no new acute changes. He I would like to consider for bone scan for further evaluation for new onset hypercalcemia in her case. Would like to give her Zometa at 3 mg x1 for the treatment of hypercalcemia. Based on her overall clinical condition, I do not think she is a candidate for additional chemotherapy at this time. Will follow up. Dr. Veto Ortega Hem/Onc (This note was completed using the dictation program Fluency Direct. As such, there may be misspellings, word substitutions, or other variations that should not change the essence of the clinical content of this encounter note. If there is need for further clarification, please direct questions to the provider listed above.) Past Medical/Surgical History Medical Problems: (1) Altered mental status Status: Acute (2) Chemotherapy-induced nausea Status: Acute (3) Elevated troponin Status: Acute (4) Hypoxia Status: Acute (5) Hypoxia Status: Acute (6) Hypoxia Status: Acute (7) Influenza B Status: Acute (8) Neutropenia Status: Acute (9) Pleural effusion Status: Acute (10) Pleural effusion Status: Acute (11) Pneumonia Status: Acute (12) Right arm cellulitis Status: Acute (13) SOB (shortness of breath) Status: Acute (14) SOB (shortness of breath) Status: Acute (15) Thrombocytopenia Status: Acute (16) Weakness Status: Acute Social History Problems: (1) Carotid stenosis Status: Chronic Family History Diabetes mellitus SISTER Heart disease MOTHER Social History Smoking Status: Former Smoker Alcohol Use: none Drug Use: none Marital Status: Housing Status: lives alone Occupation Status: unemployed Allergies Coded Allergies: No Known Allergies (Verified , 12/14/16) Current Inpatient Medications Current Inpatient Medications Medications (Trade) Dose Ordered Sig/Gilbert Route Start Time Stop Time Status Last Admin Dose Admin Insulin Aspart (novoLOG ASPART) SLIDING SCALE If C... ACHS KS 12/14/16 21:00 01/13/17 20:59 12/20/16 09:13 1 UNITS Glucose (Glucose 40% Gel) 15-30 GRAMS 15 GRAMS... UD PRN PO 12/14/16 17:00 01/13/17 16:59 Glucose (Glucose Chew Tab) 4-8 Tablets 4 Tabl... UD PRN PO 12/14/16 17:00 01/13/17 16:59 Dextrose (Dextrose 50% 50ML Syringe) 25-50ML OF 50% DW IV FOR... UD PRN IV 12/14/16 17:00 01/13/17 16:59 Glucagon (Glucagon Inj) 1 mg UD PRN SQ 12/14/16 17:00 01/13/17 16:59 Heparin Sodium (Porcine) (Heparin Sq 5000 Unit/0.5ml) 5,000 unit Q12 SQ 12/14/16 21:00 01/13/17 20:59 12/20/16 09:14 5,000 UNIT Heparin Sodium (Porcine) (Heparin 100 Unit/ml 5ml Flush) 5 ml PRN PRN IV 12/14/16 21:00 01/13/17 20:59 12/20/16 18:06 5 ML Acetaminophen (Tylenol Tab) 650 mg Q6H PRN PO 12/14/16 22:30 01/13/17 22:29 12/20/16 06:14 650 MG Aspirin (Ecotrin Tab) 81 mg QAM PO 12/15/16 09:00 01/14/17 08:59 12/20/16 09:07 81 MG Carvedilol (Coreg Tab) 25 mg BID PO 12/15/16 09:00 01/14/17 08:59 12/20/16 09:20 25 MG Cyanocobalamin (Vitamin B-12 Tab) 1,000 mcg QAM PO 12/15/16 09:00 01/14/17 08:59 12/20/16 09:08 1,000 MCG Docusate Sodium (coLACE CAP) 100 mg DAILY PRN PO 12/14/16 22:30 01/13/17 22:29 Salmeterol Xinafoate/ Fluticasone (Advair Diskus 250/50 Inh) 1 puff BID PRN INH 12/14/16 22:30 01/13/17 22:29 Fluticasone Propionate (Flonase Nasal [place]) 2 sprays DAILY PRN LATRICE 12/14/16 22:30 01/13/17 22:29 Hydralazine HCl (Apresoline Tab) 50 mg TID PO 12/15/16 09:00 01/14/17 08:59 12/20/16 15:03 50 MG Lorazepam (Ativan Tab) 0.5 mg BID PO 12/15/16 09:00 01/14/17 08:59 12/20/16 09:08 0.5 MG Polyethylene (Miralax Powder Packet) 17 gm DAILY PRN PO 12/14/16 22:30 01/13/17 22:29 Rosuvastatin Calcium (Crestor Tab) 40 mg QAM PO 12/15/16 09:00 01/14/17 08:59 12/20/16 09:08 40 MG Sildenafil Citrate (Revatio Tab) 20 mg TID PO 12/15/16 09:00 01/14/17 08:59 12/20/16 15:03 20 MG Pantoprazole Sodium (Protonix Tab) 40 mg QAM PO 12/15/16 09:00 01/14/17 08:59 12/20/16 09:08 40 MG Ondansetron HCl (Zofran Inj) 4 mg Q4H PRN IV 12/15/16 04:30 01/14/17 04:29 12/20/16 18:05 4 MG Levothyroxine Sodium (Synthroid Tab) 200 mcg DAILYBB PO 12/17/16 06:30 01/16/17 06:29 12/20/16 05:34 200 MCG Doxycycline Hyclate (Vibramycin Cap) 100 mg BID@0600,1800 PO 12/17/16 18:00 12/27/16 17:59 12/20/16 18:05 100 MG Diclofenac Sodium (Voltaren 1% Top Gel) 1 appln BID PRN EXT 12/18/16 10:15 01/17/17 10:14 12/20/16 09:11 1 APPLN Physical Exam Date Time Temp Pulse Resp B/P (MAP) Pulse Ox O2 Delivery O2 Flow Rate FiO2 12/20/16 16:00 Nasal Cannula 2.0 12/20/16 15:00 36.4 64 18 119/75 (90) 97 Nasal Cannula 1.5 12/20/16 09:21 69 120/67 (84) 12/20/16 08:00 Nasal Cannula 2.0 12/20/16 07:34 36.6 60 18 109/53 (71) 98 2.0 12/20/16 00:01 36.6 63 20 107/51 (69) 96 Nasal Cannula 2.0 12/20/16 00:00 Nasal Cannula 1.0 12/19/16 20:00 Nasal Cannula 2.0 Laboratory Results Last 24 Hours Test 12/19/16 20:22 12/20/16 05:28 12/20/16 07:21 12/20/16 11:29 Bedside Glucose 133 mg/dl 154 mg/dl 116 mg/dl Sodium Level 134 mmol/L Potassium Level 3.8 mmol/L Chloride Level 94 mmol/L Carbon Dioxide Level 32 mmol/L Anion Gap 8.0 mmol/L Blood Urea Nitrogen 20 mg/dl Creatinine 1.38 mg/dl Est Creatinine Clear Calc Drug Dose 30.4 ml/min Estimated GFR () 42.6 Estimated GFR (Non- 36.8 BUN/Creatinine Ratio 14.5 Random Glucose 104 mg/dl Calcium Level 11.9 mg/dl Test 12/20/16 16:37 Bedside Glucose 124 mg/dl
[2016-12-20] MEDS ORDERED: SODIUM CHLORIDE 0.9% IV SCH (20:30)
[2016-12-20] MEDS ORDERED: ZOLEDRONIC ACID IV SCH (20:30)
--- NOTE | 2016-12-20 20:46 | Progress Note ---
Medicine Progress Note Date & Time of Visit: Dec 20, 2016 at 14:20 . Subjective No fever. Right arm somewhat less uncomfortable. No chest pain. No cough or SOB. No nausea, vomiting, diarrhea. . Objective Last 8 Hrs Date Time Temp Pulse Resp B/P (MAP) Pulse Ox O2 Delivery O2 Flow Rate FiO2 12/20/16 16:00 Nasal Cannula 2.0 12/20/16 15:00 36.4 64 18 119/75 (90) 97 Nasal Cannula 1.5 Physical Exam: General- sitting in chair, no distress Neck- no JVD Lungs- mild wheezing Heart- regular, no gallop Abdomen- normal bowel sounds, soft, nontender Extremities- moderate swelling + mild erythema RUE; trace - 1+ pretibial edema; no calf tenderness Neuro- somewhat somnolent, pleasantly confused, cooperative . Laboratory Results: Last 24 Hours Test 12/20/16 05:28 12/20/16 07:21 12/20/16 11:29 12/20/16 16:37 Sodium Level 134 mmol/L Potassium Level 3.8 mmol/L Chloride Level 94 mmol/L Carbon Dioxide Level 32 mmol/L Anion Gap 8.0 mmol/L Blood Urea Nitrogen 20 mg/dl Creatinine 1.38 mg/dl Est Creatinine Clear Calc Drug Dose 30.4 ml/min Estimated GFR () 42.6 Estimated GFR (Non- 36.8 BUN/Creatinine Ratio 14.5 Random Glucose 104 mg/dl Calcium Level 11.9 mg/dl Bedside Glucose 154 mg/dl 116 mg/dl 124 mg/dl Assessment & Plan CELLULITIS RUE Presented with swelling and erythema of RUE. WBC 11,000. Low grade temp. Did not meet criteria for sepsis. Failed course of therapy with cephalexin at [facility]. US RUE negative for DVT. Received vancomycin and cefepime. Blood cultures negative thus far. Underlying RUE swelling could be due to vascular or lymphatic obstruction. Due for follow-up outpatient PET scan. ID consulted for recommendations. Transitioned from IV vancomycin to PO doxycycline for gram + coverage. ALTERED MENTAL STATUS Noted to have hallucinations prior to admission. Probable encephalopathy / delirium secondary to cellulitis. Continue chronic lorazepam for anxiety, but will not escalate. Supervision as necessary for patient's safety. SUSPECTED CAD / ELEVATED TROPONIN History of segmental wall motion abnormalities on previous echo. No anginal symptoms. Serum troponin as high as 0.086. Total CPK and CPK-MB normal. EKG on admission showed NSR, RBBB, repolarization abnormalities. Echo did not show any wall motion abnormalities. Elevated troponin probably nonspecific elevation secondary to infection and not due to acute coronary syndrome. Continue aspirin, carvedilol, statin. CHF Chronic diastolic CHF, possibly secondary to hypertensive heart disease. Compensated. HYPERTENSION Continue carvedilol, hydralazine. 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 Receiving palliative chemo. Due for f/u PET scan which will have to be performed as an outpatient. COPD Pulmonary status stable. Titrate O2 to keep O2 sats around 90%. Continue bronchodilators. PULMONARY HYPERTENSION Continue O2, sildenafil. GERD Continue PPI. CKD IV Serum creatinine 1.31 on admission. Creatinine today = 1.38. Follow. HYPERCALCEMIA Serum calcium as high as 11.9. Differential diagnosis includes bone metastases and PTHrP. Hold cholecalciferol. Maintain hydration. PTH < 5.5. PTHrP pending. 1,25-OH D pending. Discussed with Medical Oncology. Check bone scan. Zoledronic acid ordered. Follow. DM TYPE 2 Well-controlled. Hgb A1C = 6.0 11/15/16. Usually managed with glipizide- hold during hospital stay. FBS today = 154. Continue NovoLog coverage PRN. HYPOTHYROIDISM TSH = 11. Increased levothyroxine from 150 mcg to 200 mcg daily. Follow. DYSLIPIDEMIA Continue statin. ANEMIA Hgb 7.9-8.6. Chronic, multifactorial. Underlying malignancy. Hemoglobin 11/ = 8.5. No indication for transfusion at this time per guidelines. Follow. DEMENTIA Intermittent delirium, multifactorial- infection, hypercalcemia, etc. Avoid meds with anticholinergic side effects. VTE PROPHYLAXIS SQ heparin. Ambulate. DISPOSITION Expected return to [facility]. Family Medicine follow-up with Dr. Verdugo. Medical Oncology follow-up with Dr. Veto Ortega. . Current Inpatient Medications: Current Inpatient Medications Medications (Trade) Dose Ordered Sig/Gilbert Route Start Time Stop Time Status Last Admin Dose Admin Insulin Aspart (novoLOG ASPART) SLIDING SCALE If C... ACHS SC 12/14/16 21:00 01/13/17 20:59 12/20/16 09:13 1 UNITS Glucose (Glucose 40% Gel) 15-30 GRAMS 15 GRAMS... UD PRN PO 12/14/16 17:00 01/13/17 16:59 Glucose (Glucose Chew Tab) 4-8 Tablets 4 Tabl... UD PRN PO 12/14/16 17:00 01/13/17 16:59 Dextrose (Dextrose 50% 50ML Syringe) 25-50ML OF 50% DW IV FOR... UD PRN IV 12/14/16 17:00 01/13/17 16:59 Glucagon (Glucagon Inj) 1 mg UD PRN SQ 12/14/16 17:00 01/13/17 16:59 Heparin Sodium (Porcine) (Heparin Sq 5000 Unit/0.5ml) 5,000 unit Q12 SQ 12/14/16 21:00 01/13/17 20:59 12/20/16 09:14 5,000 UNIT Heparin Sodium (Porcine) (Heparin 100 Unit/ml 5ml Flush) 5 ml PRN PRN IV 12/14/16 21:00 01/13/17 20:59 12/20/16 18:06 5 ML Acetaminophen (Tylenol Tab) 650 mg Q6H PRN PO 12/14/16 22:30 01/13/17 22:29 12/20/16 06:14 650 MG Aspirin (Ecotrin Tab) 81 mg QAM PO 12/15/16 09:00 01/14/17 08:59 12/20/16 09:07 81 MG Carvedilol (Coreg Tab) 25 mg BID PO 12/15/16 09:00 01/14/17 08:59 12/20/16 09:20 25 MG Cyanocobalamin (Vitamin B-12 Tab) 1,000 mcg QAM PO 12/15/16 09:00 01/14/17 08:59 12/20/16 09:08 1,000 MCG Docusate Sodium (coLACE CAP) 100 mg DAILY PRN PO 12/14/16 22:30 01/13/17 22:29 Salmeterol Xinafoate/ Fluticasone (Advair Diskus 250/50 Inh) 1 puff BID PRN INH 12/14/16 22:30 01/13/17 22:29 Fluticasone Propionate (Flonase Nasal [place]) 2 sprays DAILY PRN LATRICE 12/14/16 22:30 01/13/17 22:29 Hydralazine HCl (Apresoline Tab) 50 mg TID PO 12/15/16 09:00 01/14/17 08:59 12/20/16 15:03 50 MG Lorazepam (Ativan Tab) 0.5 mg BID PO 12/15/16 09:00 01/14/17 08:59 12/20/16 09:08 0.5 MG Polyethylene (Miralax Powder Packet) 17 gm DAILY PRN PO 12/14/16 22:30 01/13/17 22:29 Rosuvastatin Calcium (Crestor Tab) 40 mg QAM PO 12/15/16 09:00 01/14/17 08:59 12/20/16 09:08 40 MG Sildenafil Citrate (Revatio Tab) 20 mg TID PO 12/15/16 09:00 01/14/17 08:59 12/20/16 15:03 20 MG Pantoprazole Sodium (Protonix Tab) 40 mg QAM PO 12/15/16 09:00 01/14/17 08:59 12/20/16 09:08 40 MG Ondansetron HCl (Zofran Inj) 4 mg Q4H PRN IV 12/15/16 04:30 01/14/17 04:29 12/20/16 18:05 4 MG Levothyroxine Sodium (Synthroid Tab) 200 mcg DAILYBB PO 12/17/16 06:30 01/16/17 06:29 12/20/16 05:34 200 MCG Doxycycline Hyclate (Vibramycin Cap) 100 mg BID@0600,1800 PO 12/17/16 18:00 12/27/16 17:59 12/20/16 18:05 100 MG Diclofenac Sodium (Voltaren 1% Top Gel) 1 appln BID PRN EXT 12/18/16 10:15 01/17/17 10:14 12/20/16 09:11 1 APPLN Zoledronic Acid 3 mg/Sodium Chloride 103.75 ml @ 210 mls/ hr TODAY@2029 IV 12/20/16 20:30 12/20/16 21:00
[2016-12-20 21:27] VITALS: BP 160/66; PULSE 73; O2SAT 96
[2016-12-21] VITALS (8 sets, daily range): BP systolic 90–143; BP diastolic 46–70; PULSE 60–72; TEMP 36.5–36.8; O2SAT 92–99
[2016-12-21 05:04] LABS: HEMATOCRIT 29.9 % (37-47); MEAN CELL VOLUME 102.7 fL (80-100); MEAN CORPUSCULAR HEMOGLOBIN 30.2 pg (25-34); MEAN CORPUSCULAR HGB CONC 29.4 g/dl (32-36); MEAN PLATELET VOLUME 8.4 fL (7.4-10.4); PLATELET COUNT 118 K/uL (130-400); RED BLOOD COUNT 2.91 M/uL (4.2-5.4); WHITE BLOOD COUNT 9.05 K/uL (4.8-10.8)
[2016-12-21 05:35] LABS: BUN/CREATININE RATIO 14.5 (10-20); CALCIUM 12.4 mg/dl (8.5-10.1); CREATININE 1.58 mg/dl (0.60-1.20); POTASSIUM 3.7 mmol/L (3.5-5.1)
[2016-12-21] MEDS: DOXYCYCLINE HYCLATE 100 MG CAP PO SCH ×2 (05:52→18:28)
[2016-12-21] MEDS: LEVOTHYROXINE 200 MCG TAB PO SCH (05:52)
--- NOTE | 2016-12-21 07:19 | DIAGNOSTIC IMAGING REPORT ---
CHEST ONE VIEW PORTABLE HISTORY: 76 years-old Female lung Ca follow-up study in a patient with lung cancer COMPARISON: Chest radiograph 12/14/[address] 02/27/2016 TECHNIQUE: Portable upright AP view of the chest FINDINGS: Cardiac silhouette is mildly enlarged. There is atherosclerosis of the aorta. Persistent right hilar fullness correlating with known right hilar mass redemonstrated. Unchanged right apical opacity is also noted. Mild bilateral reticular opacities throughout all lobes are unchanged suggesting areas of chronic scarring. Small right pleural effusion redemonstrated. Right internal jugular Mrokci-t-Itsc catheter is unchanged. The bones appear grossly intact. IMPRESSION: 1. Stable exam with persistent right hilar fullness correlating with known right hilar mass. 2. Unchanged right apical consolidation and small right pleural effusion. The above report was generated using voice recognition software. It may contain grammatical, syntax or spelling errors. Electronically signed by: Nishant Skelton M.D. 12/21/2016 7:17 AM Dictated Date/Time: 12/21/2016 7:14 AM
[2016-12-21] MEDS: NSS + 20MEQ KCL 1000ML 1,000 ML IV SCH ×2 (07:39→18:28)
[2016-12-21] MEDS: LORAZEPAM 0.5 MG TAB PO SCH ×2 (07:50→21:12)
[2016-12-21] MEDS: ACETAMINOPHEN 325 MG TAB PO PRN ×2 (07:50→20:09)
[2016-12-21] MEDS: FUROSEMIDE INJ 20 MG in SYRINGE 0 ML IV SCH ×2 (08:11→16:16)
[2016-12-21] MEDS: ROSUVASTATIN CALCIUM 20 MG TAB PO SCH (08:12)
[2016-12-21] MEDS: ASPIRIN 81 MG ECTAB PO SCH (08:12)
[2016-12-21] MEDS: CARVEDILOL 25 MG TAB PO SCH ×2 (08:12→21:12)
[2016-12-21] MEDS: CYANOCOBALAMIN 500 MCG TAB (VIT B-12) PO SCH (08:13)
[2016-12-21] MEDS: PANTOprazole SOD 40 MG TAB PO SCH (08:13)
[2016-12-21] MEDS: SILDENAFIL CITRATE 20 MG TAB PO SCH ×3 (08:14→21:12)
[2016-12-21] MEDS: INSULIN ASPART 100 UNITS/ML 3 ML PEN SC SCH ×4 (09:18→21:00)
[2016-12-21] MEDS: HEPARIN SOD 5000 UNIT/0.5 ML CARP SQ SCH ×2 (09:20→21:00)
[2016-12-21] MEDS: DICLOFENAC SOD 1% GEL 100 GM TUBE EXT PRN ×2 (10:13→19:41)
--- NOTE | 2016-12-21 12:17 | DIAGNOSTIC IMAGING REPORT ---
BONE SCAN WHOLE BODY HISTORY: 76 years-old Female Small cell lung cancer, hypercalcemia hypercalcemia in a patient with small cell lung cancer with stage IV disease. Evaluate for skeletal metastasis. Acute altered mental status. Right arm sialitis. Injection was done through [id number]-m-[id number] catheter. COMPARISON: Body bone scan 03/01/2016 TECHNIQUE: Anterior and posterior whole-body bone scan planar scintigraphic images were obtained utilizing the intravenous administration of 27.4 mCi technetium 99 MDP. Images were obtained 3 hours post injection. FINDINGS: There is a focal area of moderate radiotracer uptake involving the mid to distal diaphyseal portion of the right humerus. Mildly increased radiotracer uptake is also seen involving the soft tissues about the distal right humerus and right elbow with mild increased radiotracer uptake noted about the elbow articulation as well. There is otherwise physiologic radiotracer distribution throughout the kidneys, urinary bladder and soft tissues. Subtle area of mild increased radiotracer uptake seen within the distribution of the distal left femoral shaft, not clearly seen on prior studies. Likely degenerative related uptake is noted about the spine, hips, knees, ankles and shoulders. IMPRESSION: 1. Focal area of moderate radiotracer uptake involving the mid to distal diaphyseal right humerus with mild radiotracer uptake about the right elbow and surrounding soft tissues is nonspecific. Metastatic disease or posttraumatic etiology would be the primary differential considerations. Correlate with follow-up radiographs. 2. Ill-defined area of subtle mildly increased radiotracer uptake within the region of the distal left femoral shaft is indeterminate and likely of no clinical significance. This could also be evaluated with follow-up radiographs. The above report was generated using voice recognition software. It may contain grammatical, syntax or spelling errors. Electronically signed by: Nishant Skelton M.D. 12/21/2016 12:16 PM Dictated Date/Time: 12/21/2016 12:08 PM
--- NOTE | 2016-12-21 20:07 | Progress Note ---
Medicine Progress Note Date & Time of Visit: Dec 21, 2016 at 19:10 . Subjective No fever. Intermittent right upper extremity pain. No chest pain. No cough or SOB. No nausea or vomiting. No diarrhea. . Objective Last 8 Hrs Date Time Temp Pulse Resp B/P (MAP) Pulse Ox O2 Delivery O2 Flow Rate FiO2 12/21/16 16:16 36.8 68 18 143/63 (89) 99 Nasal Cannula 2.0 12/21/16 14:40 36.5 72 18 118/64 (82) 92 Nasal Cannula 2.0 Physical Exam: General- sitting in chair, no distress Neck- no JVD Lungs- mild wheezing Heart- regular, no gallop Abdomen- normal bowel sounds, soft, nontender Extremities- moderate swelling, less erythema RUE; 1+ pretibial edema; no calf tenderness Neuro- alert, pleasantly confused . Laboratory Results: Last 24 Hours Test 12/20/16 20:14 12/21/16 04:54 12/21/16 07:20 12/21/16 10:55 Bedside Glucose 136 mg/dl 124 mg/dl 182 mg/dl White Blood Count 9.05 K/uL Red Blood Count 2.91 M/uL Hemoglobin 8.8 g/dL Hematocrit 29.9 % Mean Corpuscular Volume 102.7 fL Mean Corpuscular Hemoglobin 30.2 pg Mean Corpuscular Hemoglobin Concent 29.4 g/dl RDW Standard Deviation 69.7 fL RDW Coefficient of Variation 18.6 % Platelet Count 118 K/uL Mean Platelet Volume 8.4 fL Sodium Level 133 mmol/L Potassium Level 3.7 mmol/L Chloride Level 94 mmol/L Carbon Dioxide Level 34 mmol/L Anion Gap 5.0 mmol/L Blood Urea Nitrogen 23 mg/dl Creatinine 1.58 mg/dl Est Creatinine Clear Calc Drug Dose 26.5 ml/min Estimated GFR () 36.2 Estimated GFR (Non- 31.2 BUN/Creatinine Ratio 14.5 Random Glucose 116 mg/dl Calcium Level 12.4 mg/dl Test 12/21/16 16:27 Bedside Glucose 120 mg/dl Assessment & Plan CELLULITIS RUE Presented with swelling and erythema of RUE. WBC 11,000. Low grade temp. Did not meet criteria for sepsis. Failed course of therapy with cephalexin at [facility]. US RUE negative for DVT. Received vancomycin and cefepime. Blood cultures negative thus far. Underlying RUE swelling could be due to vascular or lymphatic obstruction. Due for follow-up outpatient PET scan. ID consulted for recommendations. Transitioned from IV vancomycin to PO doxycycline for gram + coverage. ALTERED MENTAL STATUS Noted to have hallucinations prior to admission. Probable encephalopathy / delirium secondary to cellulitis. Continue chronic lorazepam for anxiety, but will not escalate. Supervision as necessary for patient's safety. SUSPECTED CAD / ELEVATED TROPONIN History of segmental wall motion abnormalities on previous echo. No anginal symptoms. Serum troponin as high as 0.086. Total CPK and CPK-MB normal. EKG on admission showed NSR, RBBB, repolarization abnormalities. Echo did not show any wall motion abnormalities. Elevated troponin probably nonspecific elevation secondary to infection and not due to acute coronary syndrome. Continue aspirin, carvedilol, statin. CHF Chronic diastolic CHF, possibly secondary to hypertensive heart disease. Compensated. HYPERTENSION Continue carvedilol, hydralazine. 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 Receiving palliative chemo. Due for f/u PET scan which will have to be performed as an outpatient. COPD Pulmonary status stable. Titrate O2 to keep O2 sats around 90%. Continue bronchodilators. PULMONARY HYPERTENSION Continue O2, sildenafil. GERD Continue PPI. CKD IV Serum creatinine 1.31 on admission. Creatinine today = 1.58. Follow. HYPERCALCEMIA Serum calcium as high as 12.4. Differential diagnosis includes bone metastases and PTHrP. Stopped cholecalciferol. Maintain hydration. PTH < 5.5. PTHrP pending. 1,25-OH D pending. Discussed with Medical Oncology. Bone scan - increased uptake in right humerus, nonspecific. Check CT RUE. Zoledronic acid ordered. IV NSS + furosemide today. Follow. DM TYPE 2 Well-controlled. Hgb A1C = 6.0 11/15/16. Usually managed with glipizide- hold during hospital stay. FBS today = 122. Continue NovoLog coverage PRN. HYPOTHYROIDISM TSH = 11. Increased levothyroxine from 150 mcg to 200 mcg daily. Follow. DYSLIPIDEMIA Continue statin. ANEMIA Hgb 7.9-8.6. Chronic, multifactorial. Underlying malignancy. Hemoglobin today = 8.8. No indication for transfusion at this time per guidelines. Follow. DEMENTIA Intermittent delirium, multifactorial- infection, hypercalcemia, etc. Avoid meds with anticholinergic side effects. VTE PROPHYLAXIS SQ heparin. Ambulate. RESUSCITATION STATUS Resuscitation status at time of admission CPR without intubation / mechanical ventilation per POLST and discussion with family. Has stage IV lung Ca with worsening hypercalcemia. Chances of a satisfactory outcome with PCR extremely low. Unable to discuss with patient due to her dementia. Discussed code status with son; he will discuss further with his siblings. DISPOSITION Expected return to [facility]. Family Medicine follow-up with Dr. Verdugo. Medical Oncology follow-up with Dr. Veto Ortega. . Current Inpatient Medications: Current Inpatient Medications Medications (Trade) Dose Ordered Sig/Gilbert Route Start Time Stop Time Status Last Admin Dose Admin Insulin Aspart (novoLOG ASPART) SLIDING SCALE If C... ACHS SC 12/14/16 21:00 01/13/17 20:59 12/21/16 12:42 1 UNITS Glucose (Glucose 40% Gel) 15-30 GRAMS 15 GRAMS... UD PRN PO 12/14/16 17:00 01/13/17 16:59 Glucose (Glucose Chew Tab) 4-8 Tablets 4 Tabl... UD PRN PO 12/14/16 17:00 01/13/17 16:59 Dextrose (Dextrose 50% 50ML Syringe) 25-50ML OF 50% DW IV FOR... UD PRN IV 12/14/16 17:00 01/13/17 16:59 Glucagon (Glucagon Inj) 1 mg UD PRN SQ 12/14/16 17:00 01/13/17 16:59 Heparin Sodium (Porcine) (Heparin Sq 5000 Unit/0.5ml) 5,000 unit Q12 SQ 12/14/16 21:00 01/13/17 20:59 12/21/16 09:20 5,000 UNIT Heparin Sodium (Porcine) (Heparin 100 Unit/ml 5ml Flush) 5 ml PRN PRN IV 12/14/16 21:00 01/13/17 20:59 12/20/16 22:19 5 ML Acetaminophen (Tylenol Tab) 650 mg Q6H PRN PO 12/14/16 22:30 01/13/17 22:29 12/21/16 07:50 650 MG Aspirin (Ecotrin Tab) 81 mg QAM PO 12/15/16 09:00 01/14/17 08:59 12/21/16 08:12 81 MG Carvedilol (Coreg Tab) 25 mg BID PO 12/15/16 09:00 01/14/17 08:59 12/21/16 08:12 25 MG Cyanocobalamin (Vitamin B-12 Tab) 1,000 mcg QAM PO 12/15/16 09:00 01/14/17 08:59 12/21/16 08:13 1,000 MCG Docusate Sodium (coLACE CAP) 100 mg DAILY PRN PO 12/14/16 22:30 01/13/17 22:29 Salmeterol Xinafoate/ Fluticasone (Advair Diskus 250/50 Inh) 1 puff BID PRN INH 12/14/16 22:30 01/13/17 22:29 Fluticasone Propionate (Flonase Nasal [place]) 2 sprays DAILY PRN LATRICE 12/14/16 22:30 01/13/17 22:29 Hydralazine HCl (Apresoline Tab) 50 mg TID PO 12/15/16 09:00 01/14/17 08:59 12/21/16 08:11 50 MG Lorazepam (Ativan Tab) 0.5 mg BID PO 12/15/16 09:00 01/14/17 08:59 12/21/16 07:50 0.5 MG Polyethylene (Miralax Powder Packet) 17 gm DAILY PRN PO 12/14/16 22:30 01/13/17 22:29 Rosuvastatin Calcium (Crestor Tab) 40 mg QAM PO 12/15/16 09:00 01/14/17 08:59 12/21/16 08:12 40 MG Sildenafil Citrate (Revatio Tab) 20 mg TID PO 12/15/16 09:00 01/14/17 08:59 12/21/16 08:14 20 MG Pantoprazole Sodium (Protonix Tab) 40 mg QAM PO 12/15/16 09:00 01/14/17 08:59 12/21/16 08:13 40 MG Ondansetron HCl (Zofran Inj) 4 mg Q4H PRN IV 12/15/16 04:30 01/14/17 04:29 12/20/16 18:05 4 MG Levothyroxine Sodium (Synthroid Tab) 200 mcg DAILYBB PO 12/17/16 06:30 01/16/17 06:29 12/21/16 05:52 200 MCG Doxycycline Hyclate (Vibramycin Cap) 100 mg BID@0600,1800 PO 12/17/16 18:00 12/27/16 17:59 12/21/16 18:28 100 MG Diclofenac Sodium (Voltaren 1% Top Gel) 1 appln BID PRN EXT 12/18/16 10:15 01/17/17 10:14 12/21/16 19:41 1 APPLN Potassium Chloride/Sodium Chloride 1,000 ml @ 100 mls/hr Q10H IV 12/21/16 07:30 01/20/17 07:29 12/21/16 18:28 100 MLS/HR Furosemide 20 mg/ Syringe 2 ml @ 4 mls/min BID@0900,1500 IV 12/21/16 09:00 01/20/17 08:59 12/21/16 16:16 4 MLS/MIN
[2016-12-22] MEDS: ACETAMINOPHEN 325 MG TAB PO PRN ×3 (03:08→17:47)
[2016-12-22] MEDS: NSS + 20MEQ KCL 1000ML 1,000 ML IV SCH (04:02)
[2016-12-22] MEDS: LEVOTHYROXINE 200 MCG TAB PO SCH (06:11)
[2016-12-22] MEDS: DOXYCYCLINE HYCLATE 100 MG CAP PO SCH ×2 (06:11→17:48)
[2016-12-22 06:22] LABS: BUN/CREATININE RATIO 16.7 (10-20); CALCIUM 10.3 mg/dl (8.5-10.1); CREATININE 1.36 mg/dl (0.60-1.20)
[2016-12-22 07:34] VITALS: BP 117/58; PULSE 82; TEMP 36.9; O2SAT 93
[2016-12-22] MEDS: ROSUVASTATIN CALCIUM 20 MG TAB PO SCH (08:18)
[2016-12-22] MEDS: PANTOprazole SOD 40 MG TAB PO SCH (08:18)
[2016-12-22] MEDS: CYANOCOBALAMIN 500 MCG TAB (VIT B-12) PO SCH (08:19)
[2016-12-22] MEDS: ASPIRIN 81 MG ECTAB PO SCH (08:19)
[2016-12-22] MEDS: SILDENAFIL CITRATE 20 MG TAB PO SCH ×4 (08:19→21:32)
[2016-12-22] MEDS: CARVEDILOL 25 MG TAB PO SCH ×2 (08:21→21:31)
[2016-12-22] MEDS: FUROSEMIDE INJ 20 MG in SYRINGE 0 ML IV SCH ×2 (08:22→16:57)
[2016-12-22] MEDS: INSULIN ASPART 100 UNITS/ML 3 ML PEN SC SCH ×4 (08:23→21:00)
[2016-12-22] MEDS: LORAZEPAM 0.5 MG TAB PO SCH ×2 (08:26→21:30)
[2016-12-22] MEDS: HEPARIN SOD 5000 UNIT/0.5 ML CARP SQ SCH ×2 (08:29→21:39)
[2016-12-22] MEDS: DICLOFENAC SOD 1% GEL 100 GM TUBE EXT PRN ×2 (08:31→21:41)
--- NOTE | 2016-12-22 09:42 | Hematology/Oncology Prog Note ---
Hematology/Onc Progress Note Date of Service Dec 22, 2016. Subjective 76 year old female, a case of stage IV small cell lung cancer (malignant right pleural effusion, S/P pleurodesis), she received etoposide and the carboplatin chemotherapy between March,-October,), presently she is admitted at [facility] for some altered mental status, now noticed to have hypercalcemia, received 1 dose of Zometa on 12/20/2016 (3 mg). She is also receiving IV hydration and the Lasix for the hypercalcemia. Highest level of calcium level was around 12.4 as of 12/11/2016. -calcium level--> 10.3 (12/22/2016). I saw her at bedside, she has some memory disturbances, she is sitting comfortably, receiving oxygen therapy, no new cardiac or pulmonary symptoms, no bleeding from any sites, no fever, no nausea or vomiting. Hemodynamically she has remained stable. Additional blood workup also shows abnormal kidney function test which has improved to some extent, mild anemia, [place] [address] units every weekly. Her hemoglobin level has remained stable around 8.5-8.8 g/dL. -serum creatinine level around 1.36 (12/22/2016). She does complain of some nonspecific pain in the right proximal arm with some local swelling, there was no evidence of DVT noted. Bone scan (12/21/2016)--> focal increase uptake noted in the mid-to distal right humerus some nonspecific soft tissue changes, this could be metastatic disease versus post traumatic in nature. Other ill-defined area noted in the left femoral shaft which has likely no clinical significance. Overall her clinical condition has remained stable, now gradual drop in the calcium level noted, will continue with the current medical management, declining performed status noted, I am not planning for systemic chemotherapy for small cell lung cancer in her case at this time. Upon discharge she is likely to go back to the longterm. Dr. Veto Ortega Hem/Onc (This note was completed using the dictation program Fluency Direct. As such, there may be misspellings, word substitutions, or other variations that should not change the essence of the clinical content of this encounter note. If there is need for further clarification, please direct questions to the provider listed above.) Vital Signs Vital Signs Past 12 Hours Date Time Temp Pulse Resp B/P (MAP) Pulse Ox O2 Delivery O2 Flow Rate FiO2 12/22/16 07:34 36.9 82 18 117/58 (77) 93 Nasal Cannula 1.0 12/22/16 00:00 Nasal Cannula 2.0 12/21/16 23:49 36.8 63 16 110/70 (83) 98 Nasal Cannula 1.0
[2016-12-22 14:20] VITALS: BP 103/48; PULSE 80; TEMP 36.8; O2SAT 90
[2016-12-22 16:00] VITALS: O2SAT 90
[2016-12-22 16:57] VITALS: BP 143/71; PULSE 78
[2016-12-22 21:30] VITALS: BP 148/70; PULSE 80
[2016-12-22] MEDS: ONDANSETRON INJ 2 MG/ML 2 ML VIAL IV PRN (21:41)
--- NOTE | 2016-12-22 22:05 | Progress Note ---
Medicine Progress Note Date & Time of Visit: Dec 22, 2016 at 19:15 . Subjective Complains of worsening right upper extremity pain. No fever. No chest pain. No cough or SOB. No nausea or vomiting. No diarrhea. . Objective Last 8 Hrs Date Time Temp Pulse Resp B/P (MAP) Pulse Ox O2 Delivery O2 Flow Rate FiO2 12/22/16 21:30 80 148/70 (96) 12/22/16 16:57 78 143/71 (95) 12/22/16 14:20 36.8 80 18 103/48 (66) 90 Nasal Cannula 2.0 Physical Exam: General- sitting in chair, no distress Neck- no JVD Lungs- mild wheezing Heart- regular, no gallop Abdomen- normal bowel sounds, soft, nontender Extremities- less erythema right forearm; erythema and tenderness RUE proximal to elbow; 1+ pretibial edema; no calf tenderness Neuro- alert, pleasantly confused . Laboratory Results: Last 24 Hours Test 12/22/16 05:29 12/22/16 07:18 12/22/16 11:32 12/22/16 16:37 Sodium Level 137 mmol/L Potassium Level 4.0 mmol/L Chloride Level 101 mmol/L Carbon Dioxide Level 31 mmol/L Anion Gap 5.0 mmol/L Blood Urea Nitrogen 23 mg/dl Creatinine 1.36 mg/dl Est Creatinine Clear Calc Drug Dose 30.8 ml/min Estimated GFR () 43.4 Estimated GFR (Non- 37.4 BUN/Creatinine Ratio 16.7 Random Glucose 102 mg/dl Calcium Level 10.3 mg/dl Bedside Glucose 110 mg/dl 133 mg/dl 106 mg/dl Test 12/22/16 20:29 Bedside Glucose 113 mg/dl Assessment & Plan CELLULITIS RUE Presented with swelling and erythema of RUE. WBC 11,000. Low grade temp. Did not meet criteria for sepsis. Failed course of therapy with cephalexin at half-way. US RUE negative for DVT. Received vancomycin and cefepime. Blood cultures negative thus far. ID consulted for recommendations. Transitioned from IV vancomycin to PO doxycycline for gram + coverage. RIGHT UPPER EXTREMITY EDEMA Underlying RUE swelling could be due to vascular or lymphatic obstruction. Check CT. HYPERCALCEMIA Serum calcium as high as 12.4. Differential diagnosis includes bone metastases and PTHrP. Stopped cholecalciferol. Maintain hydration. PTH < 5.5. PTHrP pending. 1,25-OH D pending. Discussed with Medical Oncology. Bone scan - increased uptake in right humerus, nonspecific. Check CT RUE. Received IV NSS, furosemide, zoledronic acid. Calcium today = 10.3. Follow. 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 Receiving palliative chemo. Management per Dr. Veto Ortega SUSPECTED CAD / ELEVATED TROPONIN History of segmental wall motion abnormalities on previous echo. No anginal symptoms. Serum troponin as high as 0.086. Total CPK and CPK-MB normal. EKG on admission showed NSR, RBBB, repolarization abnormalities. Echo did not show any wall motion abnormalities. Elevated troponin probably nonspecific elevation secondary to infection and not due to acute coronary syndrome. Continue aspirin, carvedilol, statin. CHF Chronic diastolic CHF, possibly secondary to hypertensive heart disease. Compensated. HYPERTENSION Continue carvedilol, hydralazine. COPD Pulmonary status stable. Titrate O2 to keep O2 sats around 90%. Continue bronchodilators. PULMONARY HYPERTENSION Continue O2, sildenafil. GERD Continue PPI. CKD IV Serum creatinine 1.31 on admission. Creatinine today = 1.36. Follow. DM TYPE 2 Well-controlled. Hgb A1C = 6.0 11/15/16. Usually managed with glipizide- hold during hospital stay. FBS today = 110. Continue NovoLog coverage PRN. HYPOTHYROIDISM TSH = 11. Increased levothyroxine from 150 mcg to 200 mcg daily. Follow. DYSLIPIDEMIA Continue statin. ANEMIA Hgb 7.9-8.6. Chronic, multifactorial. Underlying malignancy. Hemoglobin 11/20 = 8.8. No indication for transfusion at this time per guidelines. Follow. DEMENTIA Intermittent delirium, multifactorial- infection, hypercalcemia, etc. Avoid meds with anticholinergic side effects. ALTERED MENTAL STATUS Noted to have hallucinations prior to admission. Probable encephalopathy / delirium secondary to cellulitis. Continue chronic lorazepam for anxiety, but will not escalate. Supervision as necessary for patient's safety. VTE PROPHYLAXIS SQ heparin. Ambulate. RESUSCITATION STATUS Resuscitation status at time of admission CPR without intubation / mechanical ventilation per POLST and discussion with family. Has stage IV lung Ca with worsening hypercalcemia. Chances of a satisfactory outcome with PCR extremely low. Unable to discuss with patient due to her dementia. Spoke with son Brian today. He consulted with his siblings. Code status changed to "Level 5" (DNR) DISPOSITION Expected return to [facility]. Family Medicine follow-up with Dr. Verdugo. Medical Oncology follow-up with Dr. Veto Ortega. . Current Inpatient Medications: Current Inpatient Medications Medications (Trade) Dose Ordered Sig/Gilbert Route Start Time Stop Time Status Last Admin Dose Admin Insulin Aspart (novoLOG ASPART) SLIDING SCALE If C... ACHS SC 12/14/16 21:00 01/13/17 20:59 12/21/16 12:42 1 UNITS Glucose (Glucose 40% Gel) 15-30 GRAMS 15 GRAMS... UD PRN PO 12/14/16 17:00 01/13/17 16:59 Glucose (Glucose Chew Tab) 4-8 Tablets 4 Tabl... UD PRN PO 12/14/16 17:00 01/13/17 16:59 Dextrose (Dextrose 50% 50ML Syringe) 25-50ML OF 50% DW IV FOR... UD PRN IV 12/14/16 17:00 01/13/17 16:59 Glucagon (Glucagon Inj) 1 mg UD PRN SQ 12/14/16 17:00 01/13/17 16:59 Heparin Sodium (Porcine) (Heparin Sq 5000 Unit/0.5ml) 5,000 unit Q12 SQ 12/14/16 21:00 01/13/17 20:59 12/22/16 21:39 5,000 UNIT Heparin Sodium (Porcine) (Heparin 100 Unit/ml 5ml Flush) 5 ml PRN PRN IV 12/14/16 21:00 01/13/17 20:59 12/22/16 21:41 5 ML Acetaminophen (Tylenol Tab) 650 mg Q6H PRN PO 12/14/16 22:30 01/13/17 22:29 12/22/16 17:47 650 MG Aspirin (Ecotrin Tab) 81 mg QAM PO 12/15/16 09:00 01/14/17 08:59 12/22/16 08:19 81 MG Carvedilol (Coreg Tab) 25 mg BID PO 12/15/16 09:00 01/14/17 08:59 12/22/16 21:31 25 MG Cyanocobalamin (Vitamin B-12 Tab) 1,000 mcg QAM PO 12/15/16 09:00 01/14/17 08:59 12/22/16 08:19 1,000 MCG Docusate Sodium (coLACE CAP) 100 mg DAILY PRN PO 12/14/16 22:30 01/13/17 22:29 Salmeterol Xinafoate/ Fluticasone (Advair Diskus 250/50 Inh) 1 puff BID PRN INH 12/14/16 22:30 01/13/17 22:29 Fluticasone Propionate (Flonase Nasal [place]) 2 sprays DAILY PRN LATRICE 12/14/16 22:30 01/13/17 22:29 Hydralazine HCl (Apresoline Tab) 50 mg TID PO 12/15/16 09:00 01/14/17 08:59 12/22/16 21:32 50 MG Lorazepam (Ativan Tab) 0.5 mg BID PO 12/15/16 09:00 01/14/17 08:59 12/22/16 21:30 0.5 MG Polyethylene (Miralax Powder Packet) 17 gm DAILY PRN PO 12/14/16 22:30 01/13/17 22:29 Rosuvastatin Calcium (Crestor Tab) 40 mg QAM PO 12/15/16 09:00 01/14/17 08:59 12/22/16 08:18 40 MG Sildenafil Citrate (Revatio Tab) 20 mg TID PO 12/15/16 09:00 01/14/17 08:59 12/22/16 21:32 20 MG Pantoprazole Sodium (Protonix Tab) 40 mg QAM PO 12/15/16 09:00 01/14/17 08:59 12/22/16 08:18 40 MG Ondansetron HCl (Zofran Inj) 4 mg Q4H PRN IV 12/15/16 04:30 01/14/17 04:29 12/22/16 21:41 4 MG Levothyroxine Sodium (Synthroid Tab) 200 mcg DAILYBB PO 12/17/16 06:30 01/16/17 06:29 12/22/16 06:11 200 MCG Doxycycline Hyclate (Vibramycin Cap) 100 mg BID@0600,1800 PO 12/17/16 18:00 12/27/16 17:59 12/22/16 17:48 100 MG Diclofenac Sodium (Voltaren 1% Top Gel) 1 appln BID PRN EXT 12/18/16 10:15 01/17/17 10:14 12/22/16 21:41 1 APPLN Furosemide 20 mg/ Syringe 2 ml @ 4 mls/min BID@0900,1500 IV 12/21/16 09:00 01/20/17 08:59 12/22/16 16:57 4 MLS/MIN
[2016-12-23] VITALS (11 sets, daily range): BP systolic 89–111; BP diastolic 43–68; PULSE 63–73; TEMP 36.7–37.1; O2SAT 90–98
--- NOTE | 2016-12-23 00:15 | DIAGNOSTIC IMAGING REPORT ---
(CHEST) THORAX WITHOUT CLINICAL HISTORY: 76 years-old Female with lung CA, RUE swelling. Acute right upper extremity swelling with history of lung cancer TECHNIQUE: Multiaxial CT images of the chest were performed without contrast. A dose lowering technique was utilized adhering to the principles of ALARA. COMPARISON: Bone scan 12/21/2016, CTA chest 02/27/2016. FINDINGS: Exam is moderately motion degraded. No dominant thyroid nodule identified. Extensive bulky right axillary and right subpectoral adenopathy is present with index node measuring 2.7 x 2.0 cm on image 136 series 4. Extensive bulky adenopathy of the mediastinum and right hilum is also present, suboptimally evaluated secondary to lack of oral contrast. Index precarinal lymph node measures 2.8 x 3.4 cm on image 1:30 series 4. Large right hilar mass is again seen measuring up to approximate 5.1 x 3.4 cm on image 156 series 4. The previously noted spiculated 1.9 cm lesion of the right lung apex has markedly increased in size in the interval, now measuring 4.3 x 4.5 x 3.3 cm with lytic erosion of the adjacent posterior right second rib as seen on image 53 series 4. There is also associated pleural thickening within this distribution. Heart is mildly enlarged with small pericardial effusion. There is dilation of the main pulmonary artery suggesting pulmonary arterial hypertension. Areas of pleural calcification are seen throughout the right hemithorax suggesting prior pleurodesis. Small right pleural effusion is noted with multifocal pleural nodularity, largest measuring 1.7 x 1.5 cm on image 217 series 4 compatible with pleural metastasis. There is interval enlargement of multiple solid pulmonary nodules throughout the right lung compatible with metastasis with largest lesion measuring 1.6 x 2.5 cm within the right lung base, image 213 series 4. Pleural metastasis are also seen on the left measuring up to 8 mm as seen on image 192 series 4. Scattered parenchymal metastatic foci are also seen throughout the left lung as noted on image 118 series 4 measuring 8 mm. Nodular intralobular septal thickening seen throughout the right lung. There is background emphysema with hyperinflation. No acute amount of the imaged upper abdomen. There is moderate soft tissue swelling of the right upper extremity with areas of spiculated periosteal thickening and cortical erosion as seen on image 29 series 4 suggesting metastasis. No definite additional metastatic lesions identified. IMPRESSION: 1. 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 2. Extensive mediastinal, right hilar, right subpectoral and right axillary metastatic adenopathy. 3. Multifocal right greater than left pulmonary parenchymal and pleural metastasis. Nodular intralobular septal thickening throughout the right lung suggests associated lymphatic carcinomatosis. 4. Small right pleural effusion with findings suggesting prior pleurodesis. 5. Progressive spiculated periostitis with lytic mass and soft tissue swelling of the right humerus is compatible with metastasis correlating with finding seen on comparison bone scan. Electronically signed by: Nishant Skelton M.D. 12/23/2016 12:14 AM Dictated Date/Time: 12/23/2016 12:00 AM
--- NOTE | 2016-12-23 00:22 | DIAGNOSTIC IMAGING REPORT ---
R UPPER EXTREMITY WITHOUT HISTORY: 76 years-old Female RUE pain, lung Ca, abnormal bone scan follow-up study with abnormal bone scan COMPARISON: CT chest of same day TECHNIQUE: Multiple axial CT images of the right upper extremity were obtained without contrast. A dose lowering technique was used consistent with the principals of BRITTON. FINDINGS: There is moderate soft tissue swelling with subcutaneous trace edema, skin thickening of the right upper extremity with expansion of the triceps musculature of the distal right humerus with spiculated aggressive periostitis and lytic cortical destruction of the distal humeral diaphysis as seen on image 199 of series 303. Periostitis and cortical erosion extends for a length of 5.9 cm as seen on image 37 series 306. Evaluation for discrete soft tissue mass is limited without the use of IV contrast. No pathologic fracture identified. Extensive bulky right hilar and subpectoral adenopathy is seen with right apical pulmonary mass with adjacent cortical destruction of the right second rib. IMPRESSION: 1. Lytic cortical erosion with spiculated aggressive-appearing periostitis involving the distal right humeral diaphysis is compatible with metastasis, likely with associated soft tissue mass involving the distal triceps musculature. Moderate soft tissue swelling and subcutaneous edema is also present. No pathologic fracture. 2. Bulky right hilar and right subpectoral lymphatic metastasis. 3. Spiculated soft tissue attenuating mass of the right lung apex with lytic erosion of the adjacent right second rib and additional pulmonary findings are better discussed on CT chest study of same day. The above report was generated using voice recognition software. It may contain grammatical, syntax or spelling errors. Electronically signed by: Nishant Skelton M.D. 12/23/2016 12:21 AM Dictated Date/Time: 12/23/2016 12:14 AM
[2016-12-23] MEDS: ACETAMINOPHEN 325 MG TAB PO PRN ×2 (05:59→18:47)
[2016-12-23] MEDS: DICLOFENAC SOD 1% GEL 100 GM TUBE EXT PRN ×2 (06:00→17:43)
[2016-12-23] MEDS: DOXYCYCLINE HYCLATE 100 MG CAP PO SCH ×2 (06:00→17:42)
[2016-12-23] MEDS: LEVOTHYROXINE 200 MCG TAB PO SCH (06:00)
[2016-12-23 06:09] LABS: HEMATOCRIT 28.2 % (37-47); MEAN CELL VOLUME 103.7 fL (80-100); MEAN CORPUSCULAR HEMOGLOBIN 29.8 pg (25-34); MEAN CORPUSCULAR HGB CONC 28.7 g/dl (32-36); MEAN PLATELET VOLUME 9.4 fL (7.4-10.4); PLATELET COUNT 114 K/uL (130-400); RED BLOOD COUNT 2.72 M/uL (4.2-5.4); WHITE BLOOD COUNT 9.69 K/uL (4.8-10.8)
[2016-12-23 06:30] LABS: BUN/CREATININE RATIO 17.1 (10-20); CALCIUM 10.1 mg/dl (8.5-10.1); CREATININE 1.29 mg/dl (0.60-1.20); MAGNESIUM 1.7 mg/dl (1.8-2.4); POTASSIUM 3.7 mmol/L (3.5-5.1)
[2016-12-23 06:36] LABS: BASO % 0.1 %; BASO ABS # 0.01 K/uL (0-0.2); COMPLETE YES; EOS % 1.4 %; HYPOCHROMIA PRESENT; IG% 0.4 %; LYMPH % 6.8 %; LYMPH ABS # 0.66 K/uL (1.2-3.4); MONO % 7.7 %; NEUT % 83.6 %; OVALOCYTES 1+; TEAR DROP CELLS OCCASIONAL
[2016-12-23] MEDS ORDERED: MAGNESIUM SULFATE 1GM / D5W 1 GM BAG IV SCH (08:45)
[2016-12-23] MEDS: CARVEDILOL 25 MG TAB PO SCH ×2 (09:13→21:48)
[2016-12-23] MEDS: SILDENAFIL CITRATE 20 MG TAB PO SCH ×3 (09:15→21:49)
[2016-12-23] MEDS: ROSUVASTATIN CALCIUM 20 MG TAB PO SCH (09:15)
[2016-12-23] MEDS: PANTOprazole SOD 40 MG TAB PO SCH (09:15)
[2016-12-23] MEDS: ASPIRIN 81 MG ECTAB PO SCH (09:15)
[2016-12-23] MEDS: CYANOCOBALAMIN 500 MCG TAB (VIT B-12) PO SCH (09:16)
[2016-12-23] MEDS: HEPARIN SOD 5000 UNIT/0.5 ML CARP SQ SCH ×2 (09:18→21:00)
[2016-12-23] MEDS: FUROSEMIDE INJ 20 MG in SYRINGE 0 ML IV SCH ×2 (09:19→14:23)
[2016-12-23] MEDS: LORAZEPAM 0.5 MG TAB PO SCH ×2 (09:32→21:46)
[2016-12-23] MEDS: INSULIN ASPART 100 UNITS/ML 3 ML PEN SC SCH ×4 (09:42→21:00)
[2016-12-23] MEDS: MAGNESIUM SULFATE 1GM / D5W 1 GM in PREMIXED IN D5W 100 ML IV SCH ×2 (11:07→12:32)
--- NOTE | 2016-12-23 18:22 | Progress Note ---
Medicine Progress Note Date & Time of Visit: Dec 23, 2016 at 1400. Subjective -pleasant, no pain in her arm with rest but pain is present with any movement -denies chest pain, SOB -tolerating PO -we discussed the findings of her CT scan tonight and I let her know what Dr. Ortega's thoughts were regarding continuing on with any treatment options. -she informed me that she would like to discuss this further with Dr. Ortega, and this message was passed along to him today. Objective Last 8 Hrs Date Time Temp Pulse Resp B/P (MAP) Pulse Ox O2 Delivery O2 Flow Rate FiO2 12/23/16 15:39 36.8 72 20 95/44 (61) 98 Nasal Cannula 2.0 12/23/16 13:48 68 106/65 (79) 12/23/16 11:36 36.9 68 16 97/64 (75) 97 Nasal Cannula 2.0 12/23/16 10:11 73 109/66 (80) 97 Nasal Cannula 2.0 Physical Exam: GEN: obese, elderly, in no acute distress, alert and appropriate, tolerating solid food, up in bedside chair, very pleasant HEENT: NC/AT, normal sclerae, MMM CARDIO: reg rate, S1/2 heard without m/g/r, Port in anterior chest wall-accessed , no surrounding erythema LUNGS: CTA bilaterally with diminished breath sounds throughout, no crackles, rales or wheezes, good diaphragmatic excursion. ABD: soft, non-tender, non-distended, no rebound or guarding, +BS EXTREMITY: RUE with significant edema in entire RUE and with erythema and warmth over olecranon process with limited active ROM of the elbow. RP and DP palpable 2+ bilat, trace bilateral LE swelling but no pitting edema is present, extremities are warm and well-perfused NEURO: CN 2-12 grossly intact, demented MUSC: moves all extremities equally, no gross focal deficits. SKIN: warm and dry Laboratory Results: 12/23/16 05:30 Red Blood Count 2.72, Mean Corpuscular Volume 103.7, Mean Corpuscular Hemoglobin 29.8, Mean Corpuscular Hemoglobin Concent 28.7, Mean Platelet Volume 9.4, Neutrophils (%) (Auto) 83.6, Lymphocytes (%) (Auto) 6.8, Monocytes (%) ( Auto) 7.7, Eosinophils (%) (Auto) 1.4, Basophils (%) (Auto) 0.1, Neutrophils # ( Auto) 8.09, Lymphocytes # (Auto) 0.66, Monocytes # (Auto) 0.75, Eosinophils # ( Auto) 0.14, Basophils # (Auto) 0.01 12/23/16 05:30 Test 12/14/16 14:19 12/14/16 14:25 12/14/16 14:26 12/14/16 14:49 Hypogranular Neutrophils 1+ Stomatocytes 1+ Total Bilirubin 0.3 mg/dl (0.2-1) Direct Bilirubin 0.1 mg/dl (0-0.2) Aspartate Amino Transf (AST/SGOT) 46 U/L (15-37) Alanine Aminotransferase (ALT/SGPT) 47 U/L (12-78) Alkaline Phosphatase 64 U/L (45-117) Total Protein 6.8 gm/dl (6.4-8.2) Lipase 212 U/L (73-393) Bedside Lactic Acid Venous 0.91 mmol/L (0.90-1.70) Bedside Troponin I 0.080 ng/ml (0-0.045) Urine Color YELLOW Urine Appearance CLEAR (CLEAR) Urine pH 7.0 (4.5-7.5) Urine Specific Clover 1.011 (1.000-1.030) Urine Protein NEG (NEG) Urine Glucose (UA) NEG (NEG) Urine Ketones NEG (NEG) Urine Occult Blood NEG (NEG) Urine Nitrite NEG (NEG) Urine Bilirubin NEG (NEG) Urine Urobilinogen NEG (NEG) Urine Leukocyte Esterase NEG (NEG) Test 12/15/16 02:21 12/15/16 02:22 12/15/16 11:56 12/16/16 05:39 Total Creatine Kinase 28 U/L (26-192) Creatine Kinase MB 1.0 ng/ml (0.5-3.6) Creatine Kinase MB Ratio 3.6 (0-3.0) Troponin I 0.075 ng/ml (0-0.045) Thyroid Stimulating Hormone (TSH) 11.000 uIu/ml (0.300-4.500) Prothrombin Time 11.5 SECONDS (9.0-12.0) Prothromb Time International Ratio 1.1 (0.9-1.1) Random Vancomycin Level 15.7 mcg/ml Polychromasia 1+ Basophilic Stippling 1+ Anisocytosis PRESENT Test 12/17/16 17:54 12/19/16 05:32 12/23/16 05:30 12/23/16 16:23 Erythrocyte Sedimentation Rate 58 mm/hr (0-21) C-Reactive Protein 4.92 mg/dl (0-0.29) Vancomycin Level Trough 18.7 mcg/ml (SEE COMMENT) Parathyroid Hormone (Intact) < 5.5 pg/mL (11.1-79.5) White Blood Count 9.69 K/uL (4.8-10.8) Red Blood Count 2.72 M/uL (4.2-5.4) Hemoglobin 8.1 g/dL (12.0-16.0) Hematocrit 28.2 % (37-47) Mean Corpuscular Volume 103.7 fL (80-100) Mean Corpuscular Hemoglobin 29.8 pg (25-34) Mean Corpuscular Hemoglobin Concent 28.7 g/dl (32-36) Platelet Count 114 K/uL (130-400) Mean Platelet Volume 9.4 fL (7.4-10.4) Neutrophils (%) (Auto) 83.6 % Lymphocytes (%) (Auto) 6.8 % Monocytes (%) (Auto) 7.7 % Eosinophils (%) (Auto) 1.4 % Basophils (%) (Auto) 0.1 % Neutrophils # (Auto) 8.09 K/uL (1.4-6.5) Lymphocytes # (Auto) 0.66 K/uL (1.2-3.4) Monocytes # (Auto) 0.75 K/uL (0.11-0.59) Eosinophils # (Auto) 0.14 K/uL (0-0.5) Basophils # (Auto) 0.01 K/uL (0-0.2) RDW Standard Deviation 71.3 fL (36.4-46.3) RDW Coefficient of Variation 18.6 % (11.5-14.5) Immature Granulocyte % (Auto) 0.4 % Immature Granulocyte # (Auto) 0.04 K/uL (0.00-0.02) Hypochromasia PRESENT Tear Drop Cells OCCASIONAL Ovalocytes 1+ Anion Gap 8.0 mmol/L (3-11) Est Creatinine Clear Calc Drug Dose 32.5 ml/min Estimated GFR () 46.3 Estimated GFR (Non- 39.9 BUN/Creatinine Ratio 17.1 (10-20) Calcium Level 10.1 mg/dl (8.5-10.1) Ionized Calcium 1.37 mmol/l (1.12-1.32) Magnesium Level 1.7 mg/dl (1.8-2.4) Albumin 2.4 gm/dl (3.4-5.0) 25-Hydroxy Vitamin D Total 37.0 ng/ml (30-100) Bedside Glucose 119 mg/dl (70-90) Date/Time Source Procedure Growth Status 12/14/16 14:34 Blood Blood Culture - Final NO GROWTH Complete 12/15/16 09:35 Nasal MRSA DNA Surveillance Screen - Final Specimen Negative for MRSA by DNA Probe Complete 12/14/16 14:49 Urine,Catheterized Urine Culture - Final NO GROWTH - LESS THAN 1,000 COLONIES/ML Complete Last 24 Hours Test 12/22/16 20:29 12/23/16 05:30 12/23/16 07:55 12/23/16 11:31 Bedside Glucose 113 mg/dl 109 mg/dl 126 mg/dl White Blood Count 9.69 K/uL Red Blood Count 2.72 M/uL Hemoglobin 8.1 g/dL Hematocrit 28.2 % Mean Corpuscular Volume 103.7 fL Mean Corpuscular Hemoglobin 29.8 pg Mean Corpuscular Hemoglobin Concent 28.7 g/dl Platelet Count 114 K/uL Mean Platelet Volume 9.4 fL Neutrophils (%) (Auto) 83.6 % Lymphocytes (%) (Auto) 6.8 % Monocytes (%) (Auto) 7.7 % Eosinophils (%) (Auto) 1.4 % Basophils (%) (Auto) 0.1 % Neutrophils # (Auto) 8.09 K/uL Lymphocytes # (Auto) 0.66 K/uL Monocytes # (Auto) 0.75 K/uL Eosinophils # (Auto) 0.14 K/uL Basophils # (Auto) 0.01 K/uL RDW Standard Deviation 71.3 fL RDW Coefficient of Variation 18.6 % Immature Granulocyte % (Auto) 0.4 % Immature Granulocyte # (Auto) 0.04 K/uL Hypochromasia PRESENT Tear Drop Cells OCCASIONAL Ovalocytes 1+ Sodium Level 136 mmol/L Potassium Level 3.7 mmol/L Chloride Level 98 mmol/L Carbon Dioxide Level 30 mmol/L Anion Gap 8.0 mmol/L Blood Urea Nitrogen 22 mg/dl Creatinine 1.29 mg/dl Est Creatinine Clear Calc Drug Dose 32.5 ml/min Estimated GFR () 46.3 Estimated GFR (Non- 39.9 BUN/Creatinine Ratio 17.1 Random Glucose 106 mg/dl Calcium Level 10.1 mg/dl Ionized Calcium 1.37 mmol/l Magnesium Level 1.7 mg/dl Albumin 2.4 gm/dl 25-Hydroxy Vitamin D Total 37.0 ng/ml Test 12/23/16 16:23 Bedside Glucose 119 mg/dl Assessment & Plan Patient is a 76[facility] with a PMH of Stage IV non-small cell lung cancer (currently receiving chemo), DM II, CKD, severe COPD, CHF (with preserved EF), HTN, hypothyroidism and HLD who was sent to ER from [facility] for evaluation of altered mental status and a swollen R arm. 1. Hypercalcemia of malignancy-Calcium level improved to normal range (ionized slightly higher than range) after Zometa injection a few days ago. Continues on Lasix 20mg IV BID (home regimen is 20mg PO BID) which is fine to continue in presence of some edema and baseline kidney function. Will likely switch to PO tomorrow. Cont per Oncology recs. 2. RUE cellulitis with underlying bony mets per CT scan today and edema-cont doxycycline a this time. Oncology to discuss plan with metastatic disease. 3. SCLC-Stage IV with bony mets to RUE as above. Management per Oncology who was updated on findings and will speak with the patient regarding her options moving forward. 4. Elevated troponin- History of segmental wall motion abnormalities on previous echo. Denies chest pain or other symptoms. EKG wsa nonischemic and repeat echo did not reveal any wall motion abnormalities. Presumed CAD-cont medical management with ASA, Coreg and Crestor 5. Chronic diastolic CHF 2/2 hypertensive heart disease. Compensated. Lasix to be switched to PO as above. 6. HTN-controlled, cont Coreg and hydralazine 7. COPD-stable, no wheezing and oxygenating well on 2L nasal canula. 8. Pulmonary HTN-cont O2 and sildenafil 9. CKD IV-creat at baseline, cont to monitor, avoid nephrotoxic substances and renally dose meds as required. 10. TANI-cpzp-slprvnyysq. holding glipizide. Minimal carb coverage given. consider d/cing coverage in am. 11. Hypothyroidism-initial TSH was 11 and Synthroid was increased to 200mcg PO daily. Repeat TSH in 6-8 weeks as outpatient. 12. Anemia of chronic disease-stable and at baseline. Pt denies symptoms. 13. Dementia- stable at this time. Avoid meds that may contribute to intermittent delirium. DVT proph-heparin DNR Dipso-to [facility] when medically stable. Will await discussion with Oncology this evening to move forward. Ofelia Torres DO [facility] Hospitalist Consultants: [facility] Current Inpatient Medications: Current Inpatient Medications Medications (Trade) Dose Ordered Sig/Gilbert Route Start Time Stop Time Status Last Admin Dose Admin Insulin Aspart (novoLOG ASPART) SLIDING SCALE If C... ACHS SC 12/14/16 21:00 01/13/17 20:59 12/23/16 12:31 1 UNITS Glucose (Glucose 40% Gel) 15-30 GRAMS 15 GRAMS... UD PRN PO 12/14/16 17:00 01/13/17 16:59 Glucose (Glucose Chew Tab) 4-8 Tablets 4 Tabl... UD PRN PO 12/14/16 17:00 01/13/17 16:59 Dextrose (Dextrose 50% 50ML Syringe) 25-50ML OF 50% DW IV FOR... UD PRN IV 12/14/16 17:00 01/13/17 16:59 Glucagon (Glucagon Inj) 1 mg UD PRN SQ 12/14/16 17:00 01/13/17 16:59 Heparin Sodium (Porcine) (Heparin Sq 5000 Unit/0.5ml) 5,000 unit Q12 SQ 12/14/16 21:00 01/13/17 20:59 12/23/16 09:18 5,000 UNIT Heparin Sodium (Porcine) (Heparin 100 Unit/ml 5ml Flush) 5 ml PRN PRN IV 12/14/16 21:00 01/13/17 20:59 12/23/16 14:24 5 ML Acetaminophen (Tylenol Tab) 650 mg Q6H PRN PO 12/14/16 22:30 01/13/17 22:29 12/23/16 05:59 650 MG Aspirin (Ecotrin Tab) 81 mg QAM PO 12/15/16 09:00 01/14/17 08:59 12/23/16 09:15 81 MG Carvedilol (Coreg Tab) 25 mg BID PO 12/15/16 09:00 01/14/17 08:59 12/23/16 09:13 25 MG Cyanocobalamin (Vitamin B-12 Tab) 1,000 mcg QAM PO 12/15/16 09:00 01/14/17 08:59 12/23/16 09:16 1,000 MCG Docusate Sodium (coLACE CAP) 100 mg DAILY PRN PO 12/14/16 22:30 01/13/17 22:29 Salmeterol Xinafoate/ Fluticasone (Advair Diskus 250/50 Inh) 1 puff BID PRN INH 12/14/16 22:30 01/13/17 22:29 Fluticasone Propionate (Flonase Nasal [place]) 2 sprays DAILY PRN LATRICE 12/14/16 22:30 01/13/17 22:29 Hydralazine HCl (Apresoline Tab) 50 mg TID PO 12/15/16 09:00 01/14/17 08:59 12/23/16 13:50 50 MG Lorazepam (Ativan Tab) 0.5 mg BID PO 12/15/16 09:00 01/14/17 08:59 12/23/16 09:32 0.5 MG Polyethylene (Miralax Powder Packet) 17 gm DAILY PRN PO 12/14/16 22:30 01/13/17 22:29 Rosuvastatin Calcium (Crestor Tab) 40 mg QAM PO 12/15/16 09:00 01/14/17 08:59 12/23/16 09:15 40 MG Sildenafil Citrate (Revatio Tab) 20 mg TID PO 12/15/16 09:00 01/14/17 08:59 12/23/16 13:50 20 MG Pantoprazole Sodium (Protonix Tab) 40 mg QAM PO 12/15/16 09:00 01/14/17 08:59 12/23/16 09:15 40 MG Ondansetron HCl (Zofran Inj) 4 mg Q4H PRN IV 12/15/16 04:30 01/14/17 04:29 12/22/16 21:41 4 MG Levothyroxine Sodium (Synthroid Tab) 200 mcg DAILYBB PO 12/17/16 06:30 01/16/17 06:29 12/23/16 06:00 200 MCG Doxycycline Hyclate (Vibramycin Cap) 100 mg BID@0600,1800 PO 12/17/16 18:00 12/27/16 17:59 12/23/16 17:42 100 MG Diclofenac Sodium (Voltaren 1% Top Gel) 1 appln BID PRN EXT 12/18/16 10:15 01/17/17 10:14 12/23/16 17:43 1 APPLN Furosemide 20 mg/ Syringe 2 ml @ 4 mls/min BID@0900,1500 IV 12/21/16 09:00 01/20/17 08:59 12/23/16 14:23 4 MLS/MIN Magnesium Oxide (Mag-Ox Tab) 400 mg BID PO 12/23/16 21:00 01/22/17 20:59
--- NOTE | 2016-12-23 19:01 | Hematology/Oncology Prog Note ---
Hematology/Onc Progress Note Date of Service Dec 23, 2016. Subjective 76 year female, a case of stage IV small cell carcinoma of the right lung, she presented with malignant right pleural effusion, S/P pleurodesis, she received systemic chemotherapy in the form of carboplatin and etoposide between March-October,. Now she is admitted for change in mental status, memory disturbances, hypercalcemia noted, received 1 dose of Zometa at 3 mg on 2016. Her calcium level was around 12.4 mg/dL, now it has dropped down to the normal range. She has progressive increasing right upper extremity edema and also local pain in the right proximal upper extremity. -bone scan done on 12/21/2016 showed some focal changes noted in the right mid- to distal humerus. -CT scan of the right upper extremity done on 12/13/2016 shows large right upper lobe mass measuring about 4.5 cm which is involving the right 2nd rib, extensive mediastinal, hilar, right subpectoral and right axillary lymphadenopathy noted, multifocal pulmonary parenchymal and pleural metastatic disease noted. Small right pleural effusion noted. Progressive spiculated periosteum changes involving the right humerus consistent with metastatic disease noted. I saw her at bedside, she is sitting comfortable in the bed, has right upper extremity edema present, memory disturbances present, denies any increasing shortness of breath or chest pain, receiving oxygen therapy, no fever. Blood workup done on 12/23/2016: -WBC 9600, H&H of 8.1/28, Platelet count of 114,000. -BUN/Creat: 22/1.9, calcium 10.1, Albumin 2.4. I spoke with her at bedside, reviewed with her regarding CT scan findings, I do not think she can comprehend the CT scan finding informations, I also spoke with the patient 's son on the phone, I reviewed with him regarding his mom 's recent imaging studies, significant disease progression noted in the chest, right axilla, she has right upper extremity lymphedema. Looking at her age, comorbid conditions, progressive declining performed status and rapid progression of the disease, I do not think she will derive any meaningful benefit of systemic chemotherapy. I am not planning for any kind of systemic chemotherapy in her case at this time. Similarly overall prognosis remains quite poor, I would not consider for palliative radiation treatment at this time. Supportive and symptomatic treatment would be appropriate with the hospice that can be considered at the [facility] where she is likely to go in the next few days. Dr. Veto Ortega Hem/Onc (This note was completed using the dictation program Fluency Direct. As such, there may be misspellings, word substitutions, or other variations that should not change the essence of the clinical content of this encounter note. If there is need for further clarification, please direct questions to the provider listed above.) Vital Signs Vital Signs Past 12 Hours Date Time Temp Pulse Resp B/P (MAP) Pulse Ox O2 Delivery O2 Flow Rate FiO2 12/23/16 15:39 36.8 72 20 95/44 (61) 98 Nasal Cannula 2.0 12/23/16 13:48 68 106/65 (79) 12/23/16 11:36 36.9 68 16 97/64 (75) 97 Nasal Cannula 2.0 12/23/16 10:11 73 109/66 (80) 97 Nasal Cannula 2.0 12/23/16 08:13 97 Nasal Cannula 2.0 12/23/16 07:45 90 Nasal Cannula 2.0 12/23/16 07:31 37.1 63 12 92/50 (64) 97 Nasal Cannula 2.0 12/23/16 07:14 36.9 69 18 94/57 (69) 97 2.0
[2016-12-23] MEDS: MAGNESIUM OXIDE 400 MG TAB PO SCH (21:48)
[2016-12-24 03:39] VITALS: BP 105/46; PULSE 71; TEMP 37.3; O2SAT 94
[2016-12-24] MEDS: LEVOTHYROXINE 200 MCG TAB PO SCH (05:15)
[2016-12-24] MEDS: DOXYCYCLINE HYCLATE 100 MG CAP PO SCH ×2 (05:16→18:06)
[2016-12-24] MEDS: INSULIN ASPART 100 UNITS/ML 3 ML PEN SC SCH ×4 (06:30→21:00)
[2016-12-24] MEDS: ASPIRIN 81 MG ECTAB PO SCH (08:00)
[2016-12-24] MEDS: ROSUVASTATIN CALCIUM 20 MG TAB PO SCH (08:00)
[2016-12-24] MEDS: CYANOCOBALAMIN 500 MCG TAB (VIT B-12) PO SCH (08:00)
[2016-12-24] MEDS: LORAZEPAM 0.5 MG TAB PO SCH ×2 (08:00→21:03)
[2016-12-24] MEDS: CARVEDILOL 25 MG TAB PO SCH ×2 (08:00→21:00)
[2016-12-24] MEDS: PANTOprazole SOD 40 MG TAB PO SCH (08:01)
[2016-12-24] MEDS: SILDENAFIL CITRATE 20 MG TAB PO SCH ×3 (08:01→21:06)
[2016-12-24] MEDS: MAGNESIUM OXIDE 400 MG TAB PO SCH ×2 (08:02→21:06)
[2016-12-24] MEDS: FUROSEMIDE INJ 20 MG in SYRINGE 0 ML IV SCH ×2 (08:02→14:42)
[2016-12-24 08:13] VITALS: BP 155/61; PULSE 86; TEMP 36.6; O2SAT 92
[2016-12-24] MEDS: HEPARIN SOD 5000 UNIT/0.5 ML CARP SQ SCH ×2 (09:33→21:00)
--- NOTE | 2016-12-24 11:15 | Palliative Care Consultation ---
Consultation Date of Consultation: Dec 24, 2016. Requesting Physician: Dr. Torres Attending Physician: Dr. Torres Reason for Consultation: Goals of care History of Present Illness This 76 year old female patient with PMH small cell lung CA, dementia, COPD, and others listed below, presented to the hospital a week ago with c/o altered mental status and found to have acute right arm cellulitis. UA was negative for UTI, blood cultures negative, CT head negative, troponin elevated but EKG without anything acute. Abx started for the cellulitis, now on PO doxycycline. CT of the chest and the right upper arm were obtained and show progressive metastatic disease with 4.5cm spiculated right apical mass, extensive right metastatic adenopathy, R>L parenchymal and pleural mets, and spiculated periostitis of the right humerus and a metastatic soft tissue mass. Dr. Veto Ortega is who follows patient for the cancer, patient was receiving chemotherapy up until admission. Dr. Ortega reviewed the scans and spoke with patient and her son, Brian Faustin. Per documentation, there will be no further treatment for the cancer as far as chemo. Patient's dementia and possible hospital delirium prevent her from fully comprehending the situation, which is why the information was shared with patient's son as well. Palliative care is now consulted to assist in establishing goals of care. I met with the patient in room 278-2. She became acutely confused and agitated last evening, had a fall without injury in her room. During my visit, patient was pleasantly confused. She knows her name and that she's in hospital, was able to tell me she was getting a pill for her right arm infection and swelling. Definitely a lot of confusion as she thought she knew me and she was having trouble recalling any details of her condition/situation. Patient feels her arm is getting better and she currently has no pain at all. Patient states that she has five children and her son, Brian, is who makes medical decisions for her if she is unable. She gave me permission to discuss with him. I also found a copy of her POLST from from the [facility] in her chart which lists Brian Faustin, her son, as being the person it was discussed with. Patient's own signature is on the POLST form. I spoke with Brian on the phone. He stated that he did talk with Dr. Ortega last evening and understands that there will be no further chemotherapy. He discussed with his siblings who are all in agreement that the focus is on patient's comfort and quality of life. They would like her to be without suffering and would like to avoid further hospitalizations. Brian did recall that he and his siblings were also all in agreement that patient is now a "do not resuscitate." Brian stated that there is no official power of assistant education director paperwork, but he has been the main decision maker for quite some time and his siblings and the patient are okay with that. When jad returns to the [facility], the family would like the patient to continue with skilled care/PT/ OT for as long as she is able to tolerate or wants to. After that, the plan will be to transition to longer term care and likely for hospice. Brian is not able to meet me today but he will call me on Tuesday if he is able to make it in and we will do new POLST form to reflect goals of care. 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 DM type 2 CKD IV COPD, severe Diastolic CHF with preserved EF Htn HLD Social History Smoking Status: Former Smoker History of Alcohol Use: No Drug Use: none Marital Status: Housing Status: group home Review of Systems Constitutional: + weakness ENT: No trouble swallowing Respiratory: + dyspnea on exertion, No cough, No shortness of breath Cardiac: + edema, No chest pain Abdomen: No pain, No nausea, No vomiting Female : + problem reported ("I have to pee" nursing reports some urinary retention) Psychiatric: No anxiety Allergies Coded Allergies: No Known Allergies (Verified , 12/14/16) Medications Current Inpatient Medications Medications (Trade) Dose Ordered Sig/Gilbert Route Start Time Stop Time Status Last Admin Dose Admin Insulin Aspart (novoLOG ASPART) SLIDING SCALE If C... ACHS SC 12/14/16 21:00 01/13/17 20:59 12/23/16 12:31 1 UNITS Glucose (Glucose 40% Gel) 15-30 GRAMS 15 GRAMS... UD PRN PO 12/14/16 17:00 01/13/17 16:59 Glucose (Glucose Chew Tab) 4-8 Tablets 4 Tabl... UD PRN PO 12/14/16 17:00 01/13/17 16:59 Dextrose (Dextrose 50% 50ML Syringe) 25-50ML OF 50% DW IV FOR... UD PRN IV 12/14/16 17:00 01/13/17 16:59 Glucagon (Glucagon Inj) 1 mg UD PRN SQ 12/14/16 17:00 01/13/17 16:59 Heparin Sodium (Porcine) (Heparin Sq 5000 Unit/0.5ml) 5,000 unit Q12 SQ 12/14/16 21:00 01/13/17 20:59 12/24/16 09:33 5,000 UNIT Heparin Sodium (Porcine) (Heparin 100 Unit/ml 5ml Flush) 5 ml PRN PRN IV 12/14/16 21:00 01/13/17 20:59 12/23/16 14:24 5 ML Acetaminophen (Tylenol Tab) 650 mg Q6H PRN PO 12/14/16 22:30 01/13/17 22:29 12/23/16 18:47 650 MG Aspirin (Ecotrin Tab) 81 mg QAM PO 12/15/16 09:00 01/14/17 08:59 12/24/16 08:00 81 MG Carvedilol (Coreg Tab) 25 mg BID PO 12/15/16 09:00 01/14/17 08:59 12/24/16 08:00 25 MG Cyanocobalamin (Vitamin B-12 Tab) 1,000 mcg QAM PO 12/15/16 09:00 01/14/17 08:59 12/24/16 08:00 1,000 MCG Docusate Sodium (coLACE CAP) 100 mg DAILY PRN PO 12/14/16 22:30 01/13/17 22:29 Salmeterol Xinafoate/ Fluticasone (Advair Diskus 250/50 Inh) 1 puff BID PRN INH 12/14/16 22:30 01/13/17 22:29 Fluticasone Propionate (Flonase Nasal [place]) 2 sprays DAILY PRN LATRICE 12/14/16 22:30 01/13/17 22:29 Hydralazine HCl (Apresoline Tab) 50 mg TID PO 12/15/16 09:00 01/14/17 08:59 12/24/16 08:01 50 MG Lorazepam (Ativan Tab) 0.5 mg BID PO 12/15/16 09:00 01/14/17 08:59 12/24/16 08:00 0.5 MG Polyethylene (Miralax Powder Packet) 17 gm DAILY PRN PO 12/14/16 22:30 01/13/17 22:29 Rosuvastatin Calcium (Crestor Tab) 40 mg QAM PO 12/15/16 09:00 01/14/17 08:59 12/24/16 08:00 40 MG Sildenafil Citrate (Revatio Tab) 20 mg TID PO 12/15/16 09:00 01/14/17 08:59 12/24/16 08:01 20 MG Pantoprazole Sodium (Protonix Tab) 40 mg QAM PO 12/15/16 09:00 01/14/17 08:59 12/24/16 08:01 40 MG Ondansetron HCl (Zofran Inj) 4 mg Q4H PRN IV 12/15/16 04:30 01/14/17 04:29 12/22/16 21:41 4 MG Levothyroxine Sodium (Synthroid Tab) 200 mcg DAILYBB PO 12/17/16 06:30 01/16/17 06:29 12/24/16 05:15 200 MCG Doxycycline Hyclate (Vibramycin Cap) 100 mg BID@0600,1800 PO 12/17/16 18:00 12/27/16 17:59 12/24/16 05:16 100 MG Diclofenac Sodium (Voltaren 1% Top Gel) 1 appln BID PRN EXT 12/18/16 10:15 01/17/17 10:14 12/23/16 17:43 1 APPLN Furosemide 20 mg/ Syringe 2 ml @ 4 mls/min BID@0900,1500 IV 12/21/16 09:00 01/20/17 08:59 12/24/16 08:02 4 MLS/MIN Magnesium Oxide (Mag-Ox Tab) 400 mg BID PO 12/23/16 21:00 01/22/17 20:59 12/24/16 08:02 400 MG Tramadol HCl (Ultram Tab) not relieved by tylenol @ Q6H PRN PO 12/23/16 21:30 01/22/17 21:29 Physical Exam Date Time Temp Pulse Resp B/P (MAP) Pulse Ox O2 Delivery O2 Flow Rate FiO2 12/24/16 08:13 36.6 86 18 155/61 (92) 92 Nasal Cannula 2.0 12/24/16 03:39 37.3 71 18 105/46 (65) 94 Nasal Cannula 1.0 12/24/16 00:00 Nasal Cannula 1.0 12/23/16 23:56 36.7 71 20 89/43 (58) 94 Nasal Cannula 1.0 96/57 (70) 12/23/16 19:30 36.8 72 18 111/68 (82) 98 Nasal Cannula 1.0 12/23/16 16:00 90 Nasal Cannula 2.0 12/23/16 15:39 36.8 72 20 95/44 (61) 98 Nasal Cannula 2.0 12/23/16 13:48 68 106/65 (79) 12/23/16 11:36 36.9 68 16 97/64 (75) 97 Nasal Cannula 2.0 12/23/16 10:11 73 109/66 (80) 97 Nasal Cannula 2.0 General Appearance: no apparent distress, + obese ENT: hearing grossly normal Neck: supple, no JVD Respiratory: no respiratory distress, no accessory muscle use, + decreased breath sounds (air exchange extremely diminished), + crackles (bilateral bases) , + pertinent finding (shallow breaths) Cardiovascular: regular rate, rhythm, + systolic murmur, + pertinent finding (+ 2 pitting edema to bilateral ankles from eduardo down) Abdomen: normal bowel sounds, non tender, soft Musculoskeletal: pertinent finding (poor musculature, deconditioned) Neurologic/Psychiatric: alert, normal mood/affect, + disoriented Skin: normal color Laboratory Results Last 24 Hours Test 12/23/16 11:31 12/23/16 16:23 12/23/16 20:10 12/24/16 07:38 Bedside Glucose 126 mg/dl 119 mg/dl 154 mg/dl 141 mg/dl Assessment & Plan Palliative Performance Scale: 40 % Problem list: Altered mental status with history of dementia Urinary retention- Syed being placed today Hypercalcemia related to malignancy- improved Right arm cellulitis and edema- PO Vibramycin Elevated troponin- EKG with nothing acute Hx COPD, CHF, CKD, anemia of chronic disease Goals of care (Z51.5) Palliative care recs: -After discussion with patient's son, Brian, focus is on comfort and quality of life. He is okay of course with continuing current medical treatment while patient is here in the hospital. All family is aware that there will be no further chemotherapy for the patient and they are in agreement/acceptance. -Goal for hospitalization is to get patient's right arm a little better so she can go back to the [facility] and participate in therapy. -After skilled stay, plan is likely to transition patient to long-term care and hospice as discussed with patient's son. -POLST form in patient's chart is filled out as follows: CPR, limited additional interventions, determine use or limitation of abx when infection occurs with comfort as the goal, and no artificial nutrition but IVF are okay. Dr. Domingo had a discuss with Brian, and Brian consulted with other siblings, and the decision was made to make patient DNR. -Brian is unable to make it in today, but will call me on Tuesday when he's here so we can fill out new POLST form to reflect DNR status and new goals of care. He asked if it would be a problem that he does not have official "POA" paperwork. I stated that patient was oriented enough to tell me that he (Brian) would be the one to make decisions for her if she is unable, and she was okay with me speaking to him about plan, so I do not think this will be a problem. Also, he is the one listed on current POLST form and the contact that the [facility] has been using as well. -Patient currently has no pain or symptoms, has PRN Tramadol but has not required any doses. Thank you kindly for this consult. I will follow.
[2016-12-24 14:59] VITALS: BP 101/53; PULSE 79; TEMP 37.3; O2SAT 97
[2016-12-24] MEDS ORDERED: VANCOMYCIN CONSULT ACTIVE PRN (18:42)
[2016-12-24] MEDS ORDERED: VANCOMYCIN INJ 1,500 MG in SODIUM CHLORIDE 0.9% 500ML 500 ML IV SCH (19:30)
[2016-12-24 20:01] VITALS: BP 99/49; PULSE 78; TEMP 37.2; O2SAT 96
--- NOTE | 2016-12-24 21:19 | Progress Note ---
Medicine Progress Note Date & Time of Visit: Dec 24, 2016 at 16:49. Subjective Patient is a 76yo F [facility] resident with a PMH of Stage IV non-small cell lung cancer who presented with a RUE cellulitis and confusion. The cellulitis was treated with Vancomycin with improvement and she was switched to doxycycline PO for several days. Over the past two days erythema, inflammation and decreased ROM of her R elbow have been worsening. The patient continues to exhibit dementia symptoms and periods of confusion. She sustained a fall from her chair overnight as she was agitated and also had some urinary retention for which a Syed was placed this morning (12/24). Palliative Care to see patient today. -tolerating PO -asymptomatic but pain with movement of arm as above. Objective Last 8 Hrs Date Time Temp Pulse Resp B/P (MAP) Pulse Ox O2 Delivery O2 Flow Rate FiO2 12/24/16 15:50 Nasal Cannula 2.0 12/24/16 14:59 37.3 79 18 101/53 (69) 97 Nasal Cannula 2.0 Physical Exam: GEN: obese, elderly, in no acute distress, alert and appropriate, sleeping when I arrived, in Low Boy bed. HEENT: NC/AT, normal sclerae, MMM CARDIO: reg rate, S1/2 heard without m/g/r, Port in anterior chest wall-accessed , no surrounding erythema LUNGS: CTA bilaterally with diminished breath sounds throughout, no crackles, rales or wheezes, good diaphragmatic excursion. ABD: soft, non-tender, non-distended, no rebound or guarding, +BS EXTREMITY: RUE with significant edema in entire RUE and with erythema and warmth over olecranon process with limited active ROM of the elbow. RP and DP palpable 2+ bilat, trace bilateral LE swelling but no pitting edema is present, extremities are warm and well-perfused NEURO: CN 2-12 grossly intact, demented MUSC: moves all extremities equally, no gross focal deficits. Appears very weak and generally deconditioned. SKIN: warm and dry and R arm as above. Laboratory Results: 12/23/16 05:30 Red Blood Count 2.72, Mean Corpuscular Volume 103.7, Mean Corpuscular Hemoglobin 29.8, Mean Corpuscular Hemoglobin Concent 28.7, Mean Platelet Volume 9.4, Neutrophils (%) (Auto) 83.6, Lymphocytes (%) (Auto) 6.8, Monocytes (%) ( Auto) 7.7, Eosinophils (%) (Auto) 1.4, Basophils (%) (Auto) 0.1, Neutrophils # ( Auto) 8.09, Lymphocytes # (Auto) 0.66, Monocytes # (Auto) 0.75, Eosinophils # ( Auto) 0.14, Basophils # (Auto) 0.01 12/23/16 05:30 Test 12/14/16 14:19 12/14/16 14:25 12/14/16 14:26 12/14/16 14:49 Hypogranular Neutrophils 1+ Stomatocytes 1+ Total Bilirubin 0.3 mg/dl (0.2-1) Direct Bilirubin 0.1 mg/dl (0-0.2) Aspartate Amino Transf (AST/SGOT) 46 U/L (15-37) Alanine Aminotransferase (ALT/SGPT) 47 U/L (12-78) Alkaline Phosphatase 64 U/L (45-117) Total Protein 6.8 gm/dl (6.4-8.2) Lipase 212 U/L (73-393) Bedside Lactic Acid Venous 0.91 mmol/L (0.90-1.70) Bedside Troponin I 0.080 ng/ml (0-0.045) Urine Color YELLOW Urine Appearance CLEAR (CLEAR) Urine pH 7.0 (4.5-7.5) Urine Specific [place] 1.011 (1.000-1.030) Urine Protein NEG (NEG) Urine Glucose (UA) NEG (NEG) Urine Ketones NEG (NEG) Urine Occult Blood NEG (NEG) Urine Nitrite NEG (NEG) Urine Bilirubin NEG (NEG) Urine Urobilinogen NEG (NEG) Urine Leukocyte Esterase NEG (NEG) Test 12/15/16 02:21 12/15/16 02:22 12/15/16 11:56 12/16/16 05:39 Total Creatine Kinase 28 U/L (26-192) Creatine Kinase MB 1.0 ng/ml (0.5-3.6) Creatine Kinase MB Ratio 3.6 (0-3.0) Troponin I 0.075 ng/ml (0-0.045) Thyroid Stimulating Hormone (TSH) 11.000 uIu/ml (0.300-4.500) Prothrombin Time 11.5 SECONDS (9.0-12.0) Prothromb Time International Ratio 1.1 (0.9-1.1) Random Vancomycin Level 15.7 mcg/ml Polychromasia 1+ Basophilic Stippling 1+ Anisocytosis PRESENT Test 12/17/16 17:54 12/19/16 05:32 12/23/16 05:30 12/24/16 16:39 Erythrocyte Sedimentation Rate 58 mm/hr (0-21) C-Reactive Protein 4.92 mg/dl (0-0.29) Vancomycin Level Trough 18.7 mcg/ml (SEE COMMENT) Parathyroid Hormone (Intact) < 5.5 pg/mL (11.1-79.5) White Blood Count 9.69 K/uL (4.8-10.8) Red Blood Count 2.72 M/uL (4.2-5.4) Hemoglobin 8.1 g/dL (12.0-16.0) Hematocrit 28.2 % (37-47) Mean Corpuscular Volume 103.7 fL (80-100) Mean Corpuscular Hemoglobin 29.8 pg (25-34) Mean Corpuscular Hemoglobin Concent 28.7 g/dl (32-36) Platelet Count 114 K/uL (130-400) Mean Platelet Volume 9.4 fL (7.4-10.4) Neutrophils (%) (Auto) 83.6 % Lymphocytes (%) (Auto) 6.8 % Monocytes (%) (Auto) 7.7 % Eosinophils (%) (Auto) 1.4 % Basophils (%) (Auto) 0.1 % Neutrophils # (Auto) 8.09 K/uL (1.4-6.5) Lymphocytes # (Auto) 0.66 K/uL (1.2-3.4) Monocytes # (Auto) 0.75 K/uL (0.11-0.59) Eosinophils # (Auto) 0.14 K/uL (0-0.5) Basophils # (Auto) 0.01 K/uL (0-0.2) RDW Standard Deviation 71.3 fL (36.4-46.3) RDW Coefficient of Variation 18.6 % (11.5-14.5) Immature Granulocyte % (Auto) 0.4 % Immature Granulocyte # (Auto) 0.04 K/uL (0.00-0.02) Hypochromasia PRESENT Tear Drop Cells OCCASIONAL Ovalocytes 1+ Anion Gap 8.0 mmol/L (3-11) Est Creatinine Clear Calc Drug Dose 32.5 ml/min Estimated GFR () 46.3 Estimated GFR (Non- 39.9 BUN/Creatinine Ratio 17.1 (10-20) Calcium Level 10.1 mg/dl (8.5-10.1) Ionized Calcium 1.37 mmol/l (1.12-1.32) Magnesium Level 1.7 mg/dl (1.8-2.4) Albumin 2.4 gm/dl (3.4-5.0) 25-Hydroxy Vitamin D Total 37.0 ng/ml (30-100) Bedside Glucose 123 mg/dl (70-90) Date/Time Source Procedure Growth Status 12/14/16 14:34 Blood Blood Culture - Final NO GROWTH Complete 12/15/16 09:35 Nasal MRSA DNA Surveillance Screen - Final Specimen Negative for MRSA by DNA Probe Complete 12/14/16 14:49 Urine,Catheterized Urine Culture - Final NO GROWTH - LESS THAN 1,000 COLONIES/ML Complete Last 24 Hours Test 12/23/16 20:10 12/24/16 07:38 12/24/16 11:32 Bedside Glucose 154 mg/dl 141 mg/dl 130 mg/dl Assessment & Plan Patient is a 76yo F [facility] resident with a PMH of Stage IV non-small cell lung cancer who presented with a RUE cellulitis and confusion. The cellulitis was treated with Vancomycin with improvement and she was switched to doxycycline PO for several days. Over the past two days erythema, inflammation and decreased ROM of her R elbow have been worsening. The patient continues to exhibit dementia symptoms and periods of confusion. She sustained a fall from her chair overnight as she was agitated and also had some urinary retention for which a Syed was placed this morning (12/24). Palliative Care to see patient today. 1. Hypercalcemia of malignancy-resolved after Zometa. 2. Urinary retention-agitation and fall overnight last night. Pt voided and PVR was >500cc. Syed was placed. 3. RUE cellulitis with underlying bony mets per CT scan today and edema- appears to be worsening over the last two days despite initial therapy with Vancomycin and 6 days of PO doxycycline. Specifically, erythema, swelling, warmth around the olecranon process and ROM have gotten worse. Pt denies pain but cannot move her R arm much at all without severe pain. Consult sent to ID and Orthopedics for further evaluation and doxy was switched back to Vancomycin IV in the meantime. 4. SCLC-Stage IV with bony mets to RUE as above. Management per Oncology who has decided against further treatment in this case. This plan was discussed with patient and family last night. 5. Elevated troponin- History of segmental wall motion abnormalities on previous echo. Denies chest pain or other symptoms. EKG was nonischemic and repeat echo did not reveal any new wall motion abnormalities. Presumed CAD- cont medical management with ASA, Coreg and Crestor. Continues to deny chest pain or shortness of breath. 6. Chronic diastolic CHF 2/2 hypertensive heart disease. Compensated. Lasix switched to PO today per home regimen. 7. HTN-controlled, borderline hypotensive, cont Coreg. Decreased hydralazine dose to 25 PO TID from 50 TID 8. COPD-stable, no wheezing and oxygenating well on 2L nasal canula. 8. Pulmonary HTN-cont O2 and sildenafil 9. CKD IV-creat at baseline, cont to monitor, avoid nephrotoxic substances and renally dose meds as required. 10. [id number]. holding glipizide. has not needed insulin for many days. Cont diabetic diet. Stop fingersticks in accordance with goal of maximizing comfort. 11. Hypothyroidism-initial TSH was 11 and Synthroid was increased to 200mcg PO daily this admission. Repeat TSH in 6-8 weeks as outpatient. 12. Anemia of chronic disease-stable and at baseline. 13. Dementia- stable at this time. Avoid meds that may contribute to intermittent delirium. Of note, patient came in on Ativan .5 BID so this was continued. DVT proph-heparin DNR Dipso-to [facility] when medically stable. No earlier than Tuesday. DO Jillian Soliz Hospitalist Consultants: Ortega-Oncology Current Inpatient Medications: Current Inpatient Medications Medications (Trade) Dose Ordered Sig/Gilbert Route Start Time Stop Time Status Last Admin Dose Admin Insulin Aspart (novoLOG ASPART) SLIDING SCALE If C... ACHS SC 12/14/16 21:00 01/13/17 20:59 12/23/16 12:31 1 UNITS Glucose (Glucose 40% Gel) 15-30 GRAMS 15 GRAMS... UD PRN PO 12/14/16 17:00 01/13/17 16:59 Glucose (Glucose Chew Tab) 4-8 Tablets 4 Tabl... UD PRN PO 12/14/16 17:00 01/13/17 16:59 Dextrose (Dextrose 50% 50ML Syringe) 25-50ML OF 50% DW IV FOR... UD PRN IV 12/14/16 17:00 01/13/17 16:59 Glucagon (Glucagon Inj) 1 mg UD PRN SQ 12/14/16 17:00 01/13/17 16:59 Heparin Sodium (Porcine) (Heparin Sq 5000 Unit/0.5ml) 5,000 unit Q12 SQ 12/14/16 21:00 01/13/17 20:59 12/24/16 09:33 5,000 UNIT Heparin Sodium (Porcine) (Heparin 100 Unit/ml 5ml Flush) 5 ml PRN PRN IV 12/14/16 21:00 01/13/17 20:59 12/23/16 14:24 5 ML Acetaminophen (Tylenol Tab) 650 mg Q6H PRN PO 12/14/16 22:30 01/13/17 22:29 12/23/16 18:47 650 MG Aspirin (Ecotrin Tab) 81 mg QAM PO 12/15/16 09:00 01/14/17 08:59 12/24/16 08:00 81 MG Carvedilol (Coreg Tab) 25 mg BID PO 12/15/16 09:00 01/14/17 08:59 12/24/16 08:00 25 MG Cyanocobalamin (Vitamin B-12 Tab) 1,000 mcg QAM PO 12/15/16 09:00 01/14/17 08:59 12/24/16 08:00 1,000 MCG Docusate Sodium (coLACE CAP) 100 mg DAILY PRN PO 12/14/16 22:30 01/13/17 22:29 Salmeterol Xinafoate/ Fluticasone (Advair Diskus 250/50 Inh) 1 puff BID PRN INH 12/14/16 22:30 01/13/17 22:29 Fluticasone Propionate (Flonase Nasal [place]) 2 sprays DAILY PRN LATRICE 12/14/16 22:30 01/13/17 22:29 Hydralazine HCl (Apresoline Tab) 50 mg TID PO 12/15/16 09:00 01/14/17 08:59 12/24/16 14:15 50 MG Lorazepam (Ativan Tab) 0.5 mg BID PO 12/15/16 09:00 01/14/17 08:59 12/24/16 08:00 0.5 MG Polyethylene (Miralax Powder Packet) 17 gm DAILY PRN PO 12/14/16 22:30 01/13/17 22:29 Rosuvastatin Calcium (Crestor Tab) 40 mg QAM PO 12/15/16 09:00 01/14/17 08:59 12/24/16 08:00 40 MG Sildenafil Citrate (Revatio Tab) 20 mg TID PO 12/15/16 09:00 01/14/17 08:59 12/24/16 14:41 20 MG Pantoprazole Sodium (Protonix Tab) 40 mg QAM PO 12/15/16 09:00 01/14/17 08:59 12/24/16 08:01 40 MG Ondansetron HCl (Zofran Inj) 4 mg Q4H PRN IV 12/15/16 04:30 01/14/17 04:29 12/22/16 21:41 4 MG Levothyroxine Sodium (Synthroid Tab) 200 mcg DAILYBB PO 12/17/16 06:30 01/16/17 06:29 12/24/16 05:15 200 MCG Doxycycline Hyclate (Vibramycin Cap) 100 mg BID@0600,1800 PO 12/17/16 18:00 12/27/16 17:59 12/24/16 05:16 100 MG Diclofenac Sodium (Voltaren 1% Top Gel) 1 appln BID PRN EXT 12/18/16 10:15 01/17/17 10:14 12/23/16 17:43 1 APPLN Furosemide 20 mg/ Syringe 2 ml @ 4 mls/min BID@0900,1500 IV 12/21/16 09:00 01/20/17 08:59 12/24/16 14:42 4 MLS/MIN Magnesium Oxide (Mag-Ox Tab) 400 mg BID PO 12/23/16 21:00 01/22/17 20:59 12/24/16 08:02 400 MG Tramadol HCl (Ultram Tab) not relieved by tylenol @ Q6H PRN PO 12/23/16 21:30 01/22/17 21:29
[2016-12-24 23:49] VITALS: BP 128/57; PULSE 83; TEMP 36.9; O2SAT 91
[2016-12-25] VITALS (8 sets, daily range): BP systolic 84–121; BP diastolic 46–69; PULSE 66–75; TEMP 36.6–36.8; O2SAT 92–97
[2016-12-25 02:17] LABS: PARATHYR RELATED PROT *34478X 45 pg/mL (14-27)
[2016-12-25] MEDS: TRAMADOL HCL 50 MG TAB PO PRN (04:08)
[2016-12-25] MEDS: LEVOTHYROXINE 200 MCG TAB PO SCH (04:09)
[2016-12-25 06:25] LABS: BASO % 0.2 %; BASO ABS # 0.02 K/uL (0-0.2); COMPLETE YES; HEMATOCRIT 28.2 % (37-47); HYPOCHROMIA PRESENT; IG% 0.4 %; LYMPH ABS # 0.67 K/uL (1.2-3.4); MEAN CELL VOLUME 103.3 fL (80-100); MEAN CORPUSCULAR HEMOGLOBIN 28.6 pg (25-34); MEAN CORPUSCULAR HGB CONC 27.7 g/dl (32-36); MEAN PLATELET VOLUME 9.1 fL (7.4-10.4); MONO % 8.8 %; NEUT % 82.6 %; PLATELET COUNT 107 K/uL (130-400); POIKILOCYTOSIS PRESENT; RED BLOOD COUNT 2.73 M/uL (4.2-5.4); WHITE BLOOD COUNT 9.61 K/uL (4.8-10.8)
[2016-12-25 06:27] LABS: BUN/CREATININE RATIO 15.8 (10-20); CALCIUM 8.8 mg/dl (8.5-10.1); CREATININE 1.18 mg/dl (0.60-1.20); POTASSIUM 3.3 mmol/L (3.5-5.1)
[2016-12-25] MEDS: HEPARIN SOD 5000 UNIT/0.5 ML CARP SQ SCH ×2 (09:01→20:41)
[2016-12-25] MEDS: PANTOprazole SOD 40 MG TAB PO SCH (09:02)
[2016-12-25] MEDS: ROSUVASTATIN CALCIUM 20 MG TAB PO SCH (09:02)
[2016-12-25] MEDS: ASPIRIN 81 MG ECTAB PO SCH (09:02)
[2016-12-25] MEDS: SILDENAFIL CITRATE 20 MG TAB PO SCH ×3 (09:03→20:38)
[2016-12-25] MEDS: CYANOCOBALAMIN 500 MCG TAB (VIT B-12) PO SCH (09:03)
[2016-12-25] MEDS: MAGNESIUM OXIDE 400 MG TAB PO SCH ×2 (09:04→20:38)
[2016-12-25] MEDS: FUROSEMIDE 20 MG TAB PO SCH ×2 (09:04→16:55)
[2016-12-25] MEDS: CARVEDILOL 25 MG TAB PO SCH ×2 (09:05→20:38)
[2016-12-25] MEDS: LORAZEPAM 0.5 MG TAB PO SCH ×2 (09:08→20:39)
[2016-12-25] MEDS: POTASSIUM CHLORIDE 20 MEQ TABCR PO SCH ×2 (10:24→15:42)
--- NOTE | 2016-12-25 12:19 | Pharmacy Progress Note ---
Pharmacy Abx Initial Consult Date of Service Dec 25, 2016. Pharmacy Dosing Scope Date of Consult: 12/24/16 Consultation requested by: Dr. Torres Pharmacy is consulted to initiate Vancomycin IV dosing therapy, order appropriate labs and adjust drug dose/frequency. Subjective The patient is a 76 year old female admitted on Dec 14, 2016 at 16:46. Objective Height (Feet): 5 Height (Inches): 0.00 Weight (Kilograms): 71.100 Vital Signs (Past 12Hrs) Vital Signs Past 12 Hours Date Time Temp Pulse Resp B/P (MAP) Pulse Ox O2 Delivery O2 Flow Rate FiO2 12/25/16 11:35 36.7 66 16 84/46 (59) 95 2.0 12/25/16 09:08 36.8 72 18 118/57 (77) 97 2.0 12/25/16 08:00 Nasal Cannula 2.0 12/25/16 04:49 36.8 75 19 91/53 (66) 96 Nasal Cannula 2.0 12/25/16 04:05 Nasal Cannula 2.0 Lab Results (24Hrs) Laboratory Tests (24 Hours) Test 12/25/16 05:36 White Blood Count 9.61 K/uL (4.8-10.8) Red Blood Count 2.73 M/uL (4.2-5.4) L Hemoglobin 7.8 g/dL (12.0-16.0) L Hematocrit 28.2 % (37-47) L Mean Corpuscular Volume 103.3 fL (80-100) H Mean Corpuscular Hemoglobin 28.6 pg (25-34) Mean Corpuscular Hemoglobin Concent 27.7 g/dl (32-36) L Platelet Count 107 K/uL (130-400) L Mean Platelet Volume 9.1 fL (7.4-10.4) Neutrophils (%) (Auto) 82.6 % Lymphocytes (%) (Auto) 7.0 % Monocytes (%) (Auto) 8.8 % Eosinophils (%) (Auto) 1.0 % Basophils (%) (Auto) 0.2 % Neutrophils # (Auto) 7.93 K/uL (1.4-6.5) H Lymphocytes # (Auto) 0.67 K/uL (1.2-3.4) L Monocytes # (Auto) 0.85 K/uL (0.11-0.59) H Eosinophils # (Auto) 0.10 K/uL (0-0.5) Basophils # (Auto) 0.02 K/uL (0-0.2) Micro Results Date/Time Source Procedure Growth Status 12/14/16 14:34 Blood Blood Culture - Final NO GROWTH Complete 12/14/16 14:19 Blood Blood Culture - Final NO GROWTH Complete 12/15/16 09:35 Nasal MRSA DNA Surveillance Screen - Final Specimen Negative for MRSA by DNA Probe Complete 12/14/16 14:49 Urine,Catheterized Urine Culture - Final NO GROWTH - LESS THAN 1,000 COLONIES/ML Complete Risk Factors for Resistance * Resident in a half-way or extended-care facility * Current hospitalization > 5 days * Immunocompromised (chemotherapy) * Antimicrobial use within the last 90 days (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 Assessment & Plan Assessment 76 year old female with Stage IV non-small cell lung cancer, RUE cellulitis which was treated with Doxycycline PO but has worsened over the past 2 days. Plan Vancomycin for treatment of Cellulitis. Vancomycin IV * Loading dose: 1500 mg (21 mg/kg) x 1 dose given yesterday at 2108. * Maintenance dose: Vancomycin 1000 mg IV (14 mg/kg) every 24 hours ordered to start tonight at 1800. * Goal trough level for Cellulitis: 15 to 20 mcg/mL in this patient due to multiple risk factors for resistance. * Trough level ordered for 12/27/16 before dose at 1800. * Estimated Ke = 0.03, t1/2 ~23 hrs, Vd = 0.7 L/kg Pharmacy will continue to follow and will adjust dose/frequency as necessary. Thank you.
[2016-12-25] MEDS: DICLOFENAC SOD 1% GEL 100 GM TUBE EXT PRN ×2 (13:55→19:37)
--- NOTE | 2016-12-25 16:21 | Progress Note ---
Medicine Progress Note Date & Time of Visit: Dec 25, 2016 at 09:28. Subjective Patient is a 76yo F [facility] resident with a PMH of Stage IV non-small cell lung cancer who presented with a RUE cellulitis and confusion. The cellulitis was treated with Vancomycin with improvement and she was switched to doxycycline PO for several days. Over the past two days erythema, inflammation and decreased ROM of her R elbow have been worsening. The patient continues to exhibit dementia symptoms and periods of confusion. She sustained a fall from her chair overnight as she was agitated and also had some urinary retention for which a Syed was placed (12/24). This was removed today and the patient declined any UTI symptoms. Palliative Care saw patient and has been working with her son who is essentially mPOA. Her POLST will be refilled out with the appropriate code status of DNR on Tuesday. RUE warmth and redness have improved overnight with IV Vancomycin back in place. Will cont with this while awaiting Ortho recs. -tolerating PO -appears comfortable -denies pain except with movement of her R arm. -appears more lucid this morning. Objective Last 8 Hrs Date Time Temp Pulse Resp B/P (MAP) Pulse Ox O2 Delivery O2 Flow Rate FiO2 12/25/16 09:08 36.8 72 18 118/57 (77) 97 2.0 12/25/16 04:49 36.8 75 19 91/53 (66) 96 Nasal Cannula 2.0 12/25/16 04:05 Nasal Cannula 2.0 Physical Exam: GEN: obese, elderly, in no acute distress, alert and appropriate, sleeping when I arrived, in Low Boy bed. HEENT: NC/AT, normal sclerae, MMM CARDIO: reg rate, S1/2 heard without m/g/r, Port in anterior chest wall-accessed , no surrounding erythema LUNGS: CTA bilaterally with diminished breath sounds throughout, no crackles, rales or wheezes, good diaphragmatic excursion. ABD: soft, non-tender, non-distended, no rebound or guarding, +BS EXTREMITY: RUE with significant edema in entire RUE and with erythema and warmth over olecranon process with limited active ROM of the elbow. RP and DP palpable 2+ bilat, trace bilateral LE swelling but no pitting edema is present, extremities are warm and well-perfused NEURO: CN 2-12 grossly intact, demented MUSC: moves all extremities equally, no gross focal deficits. Appears very weak and generally deconditioned. SKIN: warm and dry and R arm as above. Laboratory Results: Last 24 Hours Test 12/24/16 11:32 12/24/16 16:39 12/24/16 20:35 12/25/16 05:36 Bedside Glucose 130 mg/dl 123 mg/dl 115 mg/dl White Blood Count 9.61 K/uL Red Blood Count 2.73 M/uL Hemoglobin 7.8 g/dL Hematocrit 28.2 % Mean Corpuscular Volume 103.3 fL Mean Corpuscular Hemoglobin 28.6 pg Mean Corpuscular Hemoglobin Concent 27.7 g/dl Platelet Count 107 K/uL Mean Platelet Volume 9.1 fL Neutrophils (%) (Auto) 82.6 % Lymphocytes (%) (Auto) 7.0 % Monocytes (%) (Auto) 8.8 % Eosinophils (%) (Auto) 1.0 % Basophils (%) (Auto) 0.2 % Neutrophils # (Auto) 7.93 K/uL Lymphocytes # (Auto) 0.67 K/uL Monocytes # (Auto) 0.85 K/uL Eosinophils # (Auto) 0.10 K/uL Basophils # (Auto) 0.02 K/uL RDW Standard Deviation 69.9 fL RDW Coefficient of Variation 18.4 % Immature Granulocyte % (Auto) 0.4 % Immature Granulocyte # (Auto) 0.04 K/uL Hypochromasia PRESENT Poikilocytosis PRESENT Sodium Level 137 mmol/L Potassium Level 3.3 mmol/L Chloride Level 99 mmol/L Carbon Dioxide Level 33 mmol/L Anion Gap 5.0 mmol/L Blood Urea Nitrogen 19 mg/dl Creatinine 1.18 mg/dl Est Creatinine Clear Calc Drug Dose 35.2 ml/min Estimated GFR () 51.5 Estimated GFR (Non- 44.5 BUN/Creatinine Ratio 15.8 Random Glucose 105 mg/dl Calcium Level 8.8 mg/dl Magnesium Level 2.0 mg/dl Test 12/25/16 07:28 Bedside Glucose 107 mg/dl Assessment & Plan Patient is a 76yo F [facility] resident with a PMH of Stage IV non-small cell lung cancer who presented with a RUE cellulitis and confusion. The cellulitis was treated with Vancomycin with improvement and she was switched to doxycycline PO for several days. Over the past two days erythema, inflammation and decreased ROM of her R elbow have been worsening. The patient continues to exhibit dementia symptoms and periods of confusion. She sustained a fall from her chair overnight as she was agitated and also had some urinary retention for which a Syed was placed (12/24). This was removed today and the patient declined any UTI symptoms. Palliative Care saw patient and has been working with her son who is essentially mPOA. Her POLST will be refilled out with the appropriate code status of DNR on Tuesday. RUE warmth and redness have improved overnight with IV Vancomycin back in place. Will cont with this while awaiting Ortho recs. 1. Hypercalcemia of malignancy-resolved after Zometa. 2. Urinary retention-Syed was placed yesterday and removed today. Cont to monitor output. 3. RUE cellulitis with underlying bony mets per CT scan and -edema, warmth and redness have improved somewhat on the IV vanco. Cont this for now and await Ortho assessment of her elbow joint. 4. SCLC-Stage IV with bony mets to RUE as above. Management per Oncology who has decided against further treatment in this case. This plan was discussed with patient and family. 5. Elevated troponin- History of segmental wall motion abnormalities on previous echo. Denies chest pain or other symptoms. EKG was nonischemic and repeat echo did not reveal any new wall motion abnormalities. Presumed CAD- cont medical management with ASA, Coreg and Crestor. Continues to deny chest pain or shortness of breath. 6. Chronic diastolic CHF 2/2 hypertensive heart disease. Compensated. Lasix switched to PO per home regimen. 7. HTN-controlled, borderline hypotensive, cont Coreg. Decreased hydralazine dose to 25 PO TID from 50 TID 8. COPD-stable, no wheezing and oxygenating well on 2L nasal canula (baseline) 8. Pulmonary HTN-cont O2 and sildenafil 9. CKD IV-creat at baseline, cont to monitor, avoid nephrotoxic substances and renally dose meds as required. 10. RJEY-[id number]. holding glipizide. has not needed insulin for many days. Cont diabetic diet. Stop fingersticks in accordance with goal of maximizing comfort. 11. Hypothyroidism-initial TSH was 11 and Synthroid was increased to 200mcg PO daily this admission. Repeat TSH in 6-8 weeks as outpatient. 12. Anemia of chronic disease-stable and at baseline. 13. Dementia- stable at this time. Avoid meds that may contribute to intermittent delirium. Of note, patient came in on Ativan .5 BID so this was continued. DVT proph-heparin DNR Dipso-to [facility] when medically stable. No earlier than Tuesday. Ofelia Torres DO [facility] Hospitalist Consultants: [facility] Current Inpatient Medications: Current Inpatient Medications Medications (Trade) Dose Ordered Sig/Gilbert Route Start Time Stop Time Status Last Admin Dose Admin Heparin Sodium (Porcine) (Heparin Sq 5000 Unit/0.5ml) 5,000 unit Q12 SQ 12/14/16 21:00 01/13/17 20:59 12/25/16 09:01 5,000 UNIT Heparin Sodium (Porcine) (Heparin 100 Unit/ml 5ml Flush) 5 ml PRN PRN IV 12/14/16 21:00 01/13/17 20:59 12/25/16 05:33 5 ML Acetaminophen (Tylenol Tab) 650 mg Q6H PRN PO 12/14/16 22:30 01/13/17 22:29 12/23/16 18:47 650 MG Aspirin (Ecotrin Tab) 81 mg QAM PO 12/15/16 09:00 01/14/17 08:59 12/25/16 09:02 81 MG Carvedilol (Coreg Tab) 25 mg BID PO 12/15/16 09:00 01/14/17 08:59 12/25/16 09:05 25 MG Cyanocobalamin (Vitamin B-12 Tab) 1,000 mcg QAM PO 12/15/16 09:00 01/14/17 08:59 12/25/16 09:03 1,000 MCG Docusate Sodium (coLACE CAP) 100 mg DAILY PRN PO 12/14/16 22:30 01/13/17 22:29 Salmeterol Xinafoate/ Fluticasone (Advair Diskus 250/50 Inh) 1 puff BID PRN INH 12/14/16 22:30 01/13/17 22:29 Fluticasone Propionate (Flonase Nasal [place]) 2 sprays DAILY PRN LATRICE 12/14/16 22:30 01/13/17 22:29 Lorazepam (Ativan Tab) 0.5 mg BID PO 12/15/16 09:00 01/14/17 08:59 12/25/16 09:08 0.5 MG Polyethylene (Miralax Powder Packet) 17 gm DAILY PRN PO 12/14/16 22:30 01/13/17 22:29 Rosuvastatin Calcium (Crestor Tab) 40 mg QAM PO 12/15/16 09:00 01/14/17 08:59 12/25/16 09:02 40 MG Sildenafil Citrate (Revatio Tab) 20 mg TID PO 12/15/16 09:00 01/14/17 08:59 12/25/16 09:03 20 MG Pantoprazole Sodium (Protonix Tab) 40 mg QAM PO 12/15/16 09:00 01/14/17 08:59 12/25/16 09:02 40 MG Ondansetron HCl (Zofran Inj) 4 mg Q4H PRN IV 12/15/16 04:30 01/14/17 04:29 12/22/16 21:41 4 MG Levothyroxine Sodium (Synthroid Tab) 200 mcg DAILYBB PO 12/17/16 06:30 01/16/17 06:29 12/25/16 04:09 200 MCG Diclofenac Sodium (Voltaren 1% Top Gel) 1 appln BID PRN EXT 12/18/16 10:15 01/17/17 10:14 12/23/16 17:43 1 APPLN Magnesium Oxide (Mag-Ox Tab) 400 mg BID PO 12/23/16 21:00 01/22/17 20:59 12/25/16 09:04 400 MG Tramadol HCl (Ultram Tab) not relieved by tylenol @ Q6H PRN PO 12/23/16 21:30 01/22/17 21:29 12/25/16 04:08 50 MG Vancomycin HCl (Consult) 1 ea UD PRN N/A 12/24/16 18:42 01/23/17 18:41 Furosemide (Lasix Tab) 20 mg BID17 PO 12/25/16 09:00 01/24/17 08:59 12/25/16 09:04 20 MG Hydralazine HCl (Apresoline Tab) 25 mg TID PO 12/25/16 09:00 01/14/17 08:59 12/25/16 09:03 25 MG Vancomycin HCl 1000 mg/Sodium Chloride 270 ml @ 125 mls/hr Q28H IV 12/25/16 18:00 01/04/17 17:59 Potassium Chloride (Klor-Con Tab) 40 meq Q6H PO 12/25/16 09:00 12/25/16 15:01
[2016-12-25] MEDS ORDERED: VANCOMYCIN INJ 1,000 MG in SODIUM CHLORIDE 0.9% 250ML 250 ML IV SCH (18:00)
[2016-12-25] MEDS: VANCOMYCIN INJ 1,000 MG in SODIUM CHLORIDE 0.9% 250ML 250 ML IV SCH (18:01)
[2016-12-26] VITALS (7 sets, daily range): BP systolic 110–131; BP diastolic 45–74; PULSE 65–79; TEMP 36.6–36.9; O2SAT 91–100
[2016-12-26] MEDS: LEVOTHYROXINE 200 MCG TAB PO SCH (04:51)
[2016-12-26] MEDS: TRAMADOL HCL 50 MG TAB PO PRN ×2 (04:51→20:52)
[2016-12-26 06:50] LABS: BUN/CREATININE RATIO 19.5 (10-20); CALCIUM 8.6 mg/dl (8.5-10.1); CREATININE 1.13 mg/dl (0.60-1.20); MAGNESIUM 2.2 mg/dl (1.8-2.4); POTASSIUM 4.1 mmol/L (3.5-5.1)
[2016-12-26] MEDS: ASPIRIN 81 MG ECTAB PO SCH (09:09)
[2016-12-26] MEDS: PANTOprazole SOD 40 MG TAB PO SCH (09:09)
[2016-12-26] MEDS: DICLOFENAC SOD 1% GEL 100 GM TUBE EXT PRN ×2 (09:09→20:52)
[2016-12-26] MEDS: CYANOCOBALAMIN 500 MCG TAB (VIT B-12) PO SCH (09:09)
[2016-12-26] MEDS: ROSUVASTATIN CALCIUM 20 MG TAB PO SCH (09:09)
[2016-12-26] MEDS: MAGNESIUM OXIDE 400 MG TAB PO SCH ×2 (09:10→20:50)
[2016-12-26] MEDS: FUROSEMIDE 20 MG TAB PO SCH ×2 (09:10→17:26)
[2016-12-26] MEDS: SILDENAFIL CITRATE 20 MG TAB PO SCH ×3 (09:11→20:51)
[2016-12-26] MEDS: CARVEDILOL 25 MG TAB PO SCH ×2 (09:11→20:51)
[2016-12-26] MEDS: HEPARIN SOD 5000 UNIT/0.5 ML CARP SQ SCH ×2 (09:13→21:00)
[2016-12-26] MEDS: LORAZEPAM 0.5 MG TAB PO SCH ×2 (09:13→20:50)
--- NOTE | 2016-12-26 10:11 | Orthopedic Consultation ---
Orthopedic Consultation Date of Consultation: Dec 26, 2016. Attending Physician: Ofelia Torres DO Reason for Consultation: Right elbow pain and swelling, rule out septic arthritis History of Present Illness 76-year-old female with known stage IV lung cancer with metastases to the distal humerus. She's had a long course of her extremity cellulitis and edema. She has been having decreased range of motion and pain in the elbow recently. No significant change with regards to the amount of erythema recently. It done well initially with vancomycin should be changed to doxycycline and the erythema worsened she's back on vancomycin now. Denies radicular pain. Denies numbness tingling extremity. Past Medical/Surgical History Medical Problems: (1) Altered mental status Status: Acute (2) Chemotherapy-induced nausea Status: Acute (3) Elevated troponin Status: Acute (4) Hypoxia Status: Acute (5) Hypoxia Status: Acute (6) Hypoxia Status: Acute (7) Influenza B Status: Acute (8) Neutropenia Status: Acute (9) Pleural effusion Status: Acute (10) Pleural effusion Status: Acute (11) Pneumonia Status: Acute (12) Right arm cellulitis Status: Acute (13) SOB (shortness of breath) Status: Acute (14) SOB (shortness of breath) Status: Acute (15) Thrombocytopenia Status: Acute (16) Weakness Status: Acute Social History Problems: (1) Carotid stenosis Status: Chronic Family History Diabetes mellitus SISTER Heart disease MOTHER Social History Smoking Status: Former Smoker Alcohol Use: none Drug Use: none Marital Status: Housing Status: lives alone Allergies Coded Allergies: No Known Allergies (Verified , 12/14/16) Home Medications Scheduled Aspirin Enteric Coated (Ecotrin Or Generic), 81 MG PO QAM Carvedilol (Coreg), 25 MG PO BID Cephalexin Monohydrate (Keflex), 500 MG PO QID Cholecalciferol (Vitamin D3), 1,000 UNITS PO QAM Cyanocobalamin (Vitamin B-12), 1,000 MCG PO QAM Furosemide (Lasix), 20 MG PO BID Glipizide (Glipizide), 5 MG PO QAM Hydralazine Hcl (Apresoline), 50 MG PO TID Iron-Vitamin C (Vitron-C), 1 TAB PO DAILY Levothyroxine Sodium (Levothyroxine Sodium), 150 MCG PO DAILY Lorazepam (Ativan), 0.5 MG PO BID Omeprazole (Prilosec), 40 MG PO QAM Ondansetron Hcl (Zofran), 8 MG PO BID Potassium Ext Rel (Klor-Con), 20 MEQ PO BID Promethazine Hcl (Phenergan), 25 MG PO BID Rosuvastatin Calcium (Crestor), 40 MG PO QAM Saccharomyces Boulardii (Probiotic), 250 MG PO BID Sildenafil Citrate (Pulmonary (Sildenafil), 20 MG PO TID Scheduled PRN Acetaminophen (Tylenol), 650 MG PO Q6 PRN for Pain or Fever Acetaminophen (Tylenol), 1 SUPP SD Q6 PRN for Pain or Fever Bisacodyl (Dulcolax), 1 SUPP SD UD PRN for Constipation Diclofenac Sodium (Topical) (Voltaren 1% Top Gel), 1 GM TD Q6 PRN for Pain Docusate Sodium (Docusate Sodium), 100 MG PO DAILY PRN for Constipation Fluticasone Prop/Salmeterol (Advair Diskus 250/50 60 Dose), 1 PUFF INH BID PRN for Fluticasone Propionate (Nasal) (Flonase Allergy Relief), 2 SPRAY LATRICE DAILY PRN for Loratadine (Claritin), 10 MG PO DAILY PRN for Magnesium Hydroxide (Milk Of Magnesia), 30 ML PO UD PRN for Constipation Polyethylene (Miralax), 17 GM PO DAILY PRN for Constipation Sodium Phosphates (Fleet Enema Six Pack), 1 APPLN SD UD PRN for Constipation Tramadol (Ultram), 25 MG PO Q6 PRN for Pain Current Inpatient Medications Current Inpatient Medications Medications (Trade) Dose Ordered Sig/Gilbert Route Start Time Stop Time Status Last Admin Dose Admin Heparin Sodium (Porcine) (Heparin Sq 5000 Unit/0.5ml) 5,000 unit Q12 SQ 12/14/16 21:00 01/13/17 20:59 12/26/16 09:13 5,000 UNIT Heparin Sodium (Porcine) (Heparin 100 Unit/ml 5ml Flush) 5 ml PRN PRN IV 12/14/16 21:00 01/13/17 20:59 12/26/16 05:47 5 ML Acetaminophen (Tylenol Tab) 650 mg Q6H PRN PO 12/14/16 22:30 01/13/17 22:29 12/23/16 18:47 650 MG Aspirin (Ecotrin Tab) 81 mg QAM PO 12/15/16 09:00 01/14/17 08:59 12/26/16 09:09 81 MG Carvedilol (Coreg Tab) 25 mg BID PO 12/15/16 09:00 01/14/17 08:59 12/26/16 09:11 25 MG Cyanocobalamin (Vitamin B-12 Tab) 1,000 mcg QAM PO 12/15/16 09:00 01/14/17 08:59 12/26/16 09:09 1,000 MCG Docusate Sodium (coLACE CAP) 100 mg DAILY PRN PO 12/14/16 22:30 01/13/17 22:29 Salmeterol Xinafoate/ Fluticasone (Advair Diskus 250/50 Inh) 1 puff BID PRN INH 12/14/16 22:30 01/13/17 22:29 Fluticasone Propionate (Flonase Nasal [place]) 2 sprays DAILY PRN LATRICE 12/14/16 22:30 01/13/17 22:29 Lorazepam (Ativan Tab) 0.5 mg BID PO 12/15/16 09:00 01/14/17 08:59 12/26/16 09:13 0.5 MG Polyethylene (Miralax Powder Packet) 17 gm DAILY PRN PO 12/14/16 22:30 01/13/17 22:29 Rosuvastatin Calcium (Crestor Tab) 40 mg QAM PO 12/15/16 09:00 01/14/17 08:59 12/26/16 09:09 40 MG Sildenafil Citrate (Revatio Tab) 20 mg TID PO 12/15/16 09:00 01/14/17 08:59 12/26/16 09:11 20 MG Pantoprazole Sodium (Protonix Tab) 40 mg QAM PO 12/15/16 09:00 01/14/17 08:59 12/26/16 09:09 40 MG Ondansetron HCl (Zofran Inj) 4 mg Q4H PRN IV 12/15/16 04:30 01/14/17 04:29 12/22/16 21:41 4 MG Levothyroxine Sodium (Synthroid Tab) 200 mcg DAILYBB PO 12/17/16 06:30 01/16/17 06:29 12/26/16 04:51 200 MCG Diclofenac Sodium (Voltaren 1% Top Gel) 1 appln BID PRN EXT 12/18/16 10:15 01/17/17 10:14 12/26/16 09:09 1 APPLN Magnesium Oxide (Mag-Ox Tab) 400 mg BID PO 12/23/16 21:00 01/22/17 20:59 12/26/16 09:10 400 MG Tramadol HCl (Ultram Tab) not relieved by tylenol @ Q6H PRN PO 12/23/16 21:30 01/22/17 21:29 12/26/16 04:51 50 MG Vancomycin HCl (Consult) 1 ea UD PRN N/A 12/24/16 18:42 01/23/17 18:41 Furosemide (Lasix Tab) 20 mg BID17 PO 12/25/16 09:00 01/24/17 08:59 12/26/16 09:10 20 MG Hydralazine HCl (Apresoline Tab) 25 mg TID PO 12/25/16 09:00 01/14/17 08:59 12/26/16 09:10 25 MG Vancomycin HCl 1000 mg/Sodium Chloride 270 ml @ 125 mls/hr Q24H IV 12/25/16 18:00 01/03/17 17:59 12/25/16 18:01 125 MLS/HR Physical Exam Date Time Temp Pulse Resp B/P (MAP) Pulse Ox O2 Delivery O2 Flow Rate FiO2 12/26/16 08:01 Nasal Cannula 2.0 12/26/16 07:57 36.8 65 18 111/57 (75) 99 12/26/16 04:08 36.7 72 18 110/59 (76) 96 Nasal Cannula 2.0 12/26/16 00:00 Nasal Cannula 2.0 12/25/16 22:41 36.8 72 20 96/58 (71) 95 Nasal Cannula 2.0 12/25/16 20:33 71 121/69 (86) 97 Room Air 12/25/16 18:57 36.8 73 18 100/50 (67) 96 Nasal Cannula 2.0 12/25/16 16:00 92 Nasal Cannula 2.0 12/25/16 15:01 36.6 73 18 108/64 (79) 92 2.0 12/25/16 11:35 36.7 66 16 84/46 (59) 95 2.0 Examination right upper extremity she has 3+ pitting edema. There is erythema over the lateral aspect of the elbow. No fluctuance is appreciated. No wounds. Range of motion is about 20 to 90 she has some tenderness to palpation of the distal aspect of the humerus as well as the lateral aspect of the elbow. No significant tenderness medially. Minimal tenderness posteriorly. General Appearance: WD/WN Head: normocephalic Eyes: normal inspection ENT: normal ENT inspection Neck: supple Cardiovascular: regular rate, rhythm Laboratory Results Last 24 Hours Test 12/26/16 05:49 Sodium Level 137 mmol/L Potassium Level 4.1 mmol/L Chloride Level 100 mmol/L Carbon Dioxide Level 34 mmol/L Anion Gap 3.0 mmol/L Blood Urea Nitrogen 22 mg/dl Creatinine 1.13 mg/dl Est Creatinine Clear Calc Drug Dose 36.8 ml/min Estimated GFR () 54.3 Estimated GFR (Non- 46.8 BUN/Creatinine Ratio 19.5 Random Glucose 122 mg/dl Calcium Level 8.6 mg/dl Magnesium Level 2.2 mg/dl Assessment & Plan Assessment: Right elbow pain and swelling, erythema lateral aspect the elbow Plan: CT scan from about 4 days ago stem demonstrates a lytic lesion at the distal aspect of the humerus consistent with her prior history of stage IV lung cancer. There is likely mass effect in this region that is compressing some the lymphatics contribute to her edema. She is painful on range of motion. I' m uncertain whether this is secondary to her lytic lesion or if there is more of an intra-articular process. She has erythema over the region where I would want to perform an aspiration. I'm hesitant to perform aspirations region secondary to possibly seeding the joint through the cellulitic region. Good tracking a MRI of the elbow is better appreciation if there is a fluid collection that needs to be drained development of the elbow joint itself.
--- NOTE | 2016-12-26 14:13 | Progress Note ---
Medicine Progress Note Date & Time of Visit: Dec 26, 2016 at 13:50. Subjective Patient is a 76yo F [facility] resident with a PMH of Stage IV non-small cell lung cancer who presented with a RUE cellulitis and confusion. The cellulitis was treated with Vancomycin with improvement and she was switched to doxycycline PO for several days. Over the past two days erythema, inflammation and decreased ROM of her R elbow have been worsening. The patient continues to exhibit dementia symptoms and periods of confusion. She sustained a fall from her chair overnight as she was agitated and also had some urinary retention for which a Syed was placed (12/24). This was removed 12/25 with no subsequent issues. Palliative Care saw patient and has been working with her son who is essentially mPOA. Her POLST will be refilled out with the appropriate code status of DNR on Tuesday. RUE warmth and redness have not continued to improve with IV Vancomycin. Ortho and ID were consulted for assistance -tolerating PO -denies chest pain, SOB, fevers, chills, abd pain -RUE pain present with movement. Objective Last 8 Hrs Date Time Temp Pulse Resp B/P (MAP) Pulse Ox O2 Delivery O2 Flow Rate FiO2 12/26/16 11:11 36.7 67 18 111/67 (82) 100 12/26/16 08:01 Nasal Cannula 2.0 12/26/16 07:57 36.8 65 18 111/57 (75) 99 Physical Exam: GEN: obese, elderly, in no acute distress, alert and appropriate, sleeping when I arrived, in Low Boy bed. HEENT: NC/AT, normal sclerae, MMM CARDIO: reg rate, S1/2 heard without m/g/r, Port in anterior chest wall-accessed , no surrounding erythema LUNGS: CTA bilaterally with diminished breath sounds throughout, no crackles, rales or wheezes, good diaphragmatic excursion. ABD: soft, non-tender, non-distended, no rebound or guarding, +BS EXTREMITY: RUE with significant edema in entire RUE and with erythema and warmth over olecranon process with limited active ROM of the elbow. RP and DP palpable 2+ bilat, trace bilateral LE swelling but no pitting edema is present, extremities are warm and well-perfused NEURO: CN 2-12 grossly intact, demented MUSC: moves all extremities equally, no gross focal deficits. Appears very weak and generally deconditioned. SKIN: warm and dry and R arm as above. Laboratory Results: 12/25/16 05:36 Red Blood Count 2.73, Mean Corpuscular Volume 103.3, Mean Corpuscular Hemoglobin 28.6, Mean Corpuscular Hemoglobin Concent 27.7, Mean Platelet Volume 9.1, Neutrophils (%) (Auto) 82.6, Lymphocytes (%) (Auto) 7.0, Monocytes (%) ( Auto) 8.8, Eosinophils (%) (Auto) 1.0, Basophils (%) (Auto) 0.2, Neutrophils # ( Auto) 7.93, Lymphocytes # (Auto) 0.67, Monocytes # (Auto) 0.85, Eosinophils # ( Auto) 0.10, Basophils # (Auto) 0.02 12/26/16 05:49 Test 12/14/16 14:19 12/14/16 14:25 12/14/16 14:26 12/14/16 14:49 Hypogranular Neutrophils 1+ Stomatocytes 1+ Total Bilirubin 0.3 mg/dl (0.2-1) Direct Bilirubin 0.1 mg/dl (0-0.2) Aspartate Amino Transf (AST/SGOT) 46 U/L (15-37) Alanine Aminotransferase (ALT/SGPT) 47 U/L (12-78) Alkaline Phosphatase 64 U/L (45-117) Total Protein 6.8 gm/dl (6.4-8.2) Lipase 212 U/L (73-393) Bedside Lactic Acid Venous 0.91 mmol/L (0.90-1.70) Bedside Troponin I 0.080 ng/ml (0-0.045) Urine Color YELLOW Urine Appearance CLEAR (CLEAR) Urine pH 7.0 (4.5-7.5) Urine Specific Inlet 1.011 (1.000-1.030) Urine Protein NEG (NEG) Urine Glucose (UA) NEG (NEG) Urine Ketones NEG (NEG) Urine Occult Blood NEG (NEG) Urine Nitrite NEG (NEG) Urine Bilirubin NEG (NEG) Urine Urobilinogen NEG (NEG) Urine Leukocyte Esterase NEG (NEG) Test 12/15/16 02:21 12/15/16 02:22 12/15/16 11:56 12/16/16 05:39 Total Creatine Kinase 28 U/L (26-192) Creatine Kinase MB 1.0 ng/ml (0.5-3.6) Creatine Kinase MB Ratio 3.6 (0-3.0) Troponin I 0.075 ng/ml (0-0.045) Thyroid Stimulating Hormone (TSH) 11.000 uIu/ml (0.300-4.500) Prothrombin Time 11.5 SECONDS (9.0-12.0) Prothromb Time International Ratio 1.1 (0.9-1.1) Random Vancomycin Level 15.7 mcg/ml Polychromasia 1+ Basophilic Stippling 1+ Anisocytosis PRESENT Test 12/17/16 17:54 12/19/16 05:32 12/23/16 05:30 12/25/16 05:36 Erythrocyte Sedimentation Rate 58 mm/hr (0-21) C-Reactive Protein 4.92 mg/dl (0-0.29) Vancomycin Level Trough 18.7 mcg/ml (SEE COMMENT) Vitamin D 1,25-Dihydroxy Total 39 pg/mL (18-72) 1,25 Dihydroxy Vitamin D2 <8 pg/mL 1,25 Dihydroxy Vitamin D3 39 pg/mL Parathyroid Hormone (Intact) < 5.5 pg/mL (11.1-79.5) Parathyroid Hormone Related Protein 45 pg/mL (14-27) Tear Drop Cells OCCASIONAL Ovalocytes 1+ Ionized Calcium 1.37 mmol/l (1.12-1.32) Albumin 2.4 gm/dl (3.4-5.0) 25-Hydroxy Vitamin D Total 37.0 ng/ml (30-100) White Blood Count 9.61 K/uL (4.8-10.8) Red Blood Count 2.73 M/uL (4.2-5.4) Hemoglobin 7.8 g/dL (12.0-16.0) Hematocrit 28.2 % (37-47) Mean Corpuscular Volume 103.3 fL (80-100) Mean Corpuscular Hemoglobin 28.6 pg (25-34) Mean Corpuscular Hemoglobin Concent 27.7 g/dl (32-36) Platelet Count 107 K/uL (130-400) Mean Platelet Volume 9.1 fL (7.4-10.4) Neutrophils (%) (Auto) 82.6 % Lymphocytes (%) (Auto) 7.0 % Monocytes (%) (Auto) 8.8 % Eosinophils (%) (Auto) 1.0 % Basophils (%) (Auto) 0.2 % Neutrophils # (Auto) 7.93 K/uL (1.4-6.5) Lymphocytes # (Auto) 0.67 K/uL (1.2-3.4) Monocytes # (Auto) 0.85 K/uL (0.11-0.59) Eosinophils # (Auto) 0.10 K/uL (0-0.5) Basophils # (Auto) 0.02 K/uL (0-0.2) RDW Standard Deviation 69.9 fL (36.4-46.3) RDW Coefficient of Variation 18.4 % (11.5-14.5) Immature Granulocyte % (Auto) 0.4 % Immature Granulocyte # (Auto) 0.04 K/uL (0.00-0.02) Hypochromasia PRESENT Poikilocytosis PRESENT Test 12/25/16 07:28 12/26/16 05:49 Bedside Glucose 107 mg/dl (70-90) Anion Gap 3.0 mmol/L (3-11) Est Creatinine Clear Calc Drug Dose 36.8 ml/min Estimated GFR () 54.3 Estimated GFR (Non- 46.8 BUN/Creatinine Ratio 19.5 (10-20) Calcium Level 8.6 mg/dl (8.5-10.1) Magnesium Level 2.2 mg/dl (1.8-2.4) Date/Time Source Procedure Growth Status 12/14/16 14:34 Blood Blood Culture - Final NO GROWTH Complete 12/15/16 09:35 Nasal MRSA DNA Surveillance Screen - Final Specimen Negative for MRSA by DNA Probe Complete 12/14/16 14:49 Urine,Catheterized Urine Culture - Final NO GROWTH - LESS THAN 1,000 COLONIES/ML Complete Last 24 Hours Test 12/26/16 05:49 Sodium Level 137 mmol/L Potassium Level 4.1 mmol/L Chloride Level 100 mmol/L Carbon Dioxide Level 34 mmol/L Anion Gap 3.0 mmol/L Blood Urea Nitrogen 22 mg/dl Creatinine 1.13 mg/dl Est Creatinine Clear Calc Drug Dose 36.8 ml/min Estimated GFR () 54.3 Estimated GFR (Non- 46.8 BUN/Creatinine Ratio 19.5 Random Glucose 122 mg/dl Calcium Level 8.6 mg/dl Magnesium Level 2.2 mg/dl Assessment & Plan Patient is a 76yo F [facility] resident with a PMH of Stage IV non-small cell lung cancer who presented with a RUE cellulitis and confusion. The cellulitis was treated with Vancomycin with improvement and she was switched to doxycycline PO for several days. Over the past two days erythema, inflammation and decreased ROM of her R elbow have been worsening. The patient continues to exhibit dementia symptoms and periods of confusion. She sustained a fall from her chair overnight as she was agitated and also had some urinary retention for which a Syed was placed (12/24). This was removed 12/25 with no subsequent issues. Palliative Care saw patient and has been working with her son who is essentially mPOA. Her POLST will be refilled out with the appropriate code status of DNR on Tuesday. RUE warmth and redness have not continued to improve with IV Vancomycin. Ortho and ID were consulted for assistance 1. RUE cellulitis with underlying bony mets per CT scan and -edema, warmth and redness have not continued to improve on the IV vanco. Cont this for now and await Ortho assessment of her elbow joint. ROM is restricted here 2. Hypercalcemia of malignancy-resolved after Zometa. 3. SCLC-Stage IV with bony mets to RUE as above. Management per Oncology who has decided against further treatment in this case. This plan was discussed with patient and family. 4. Elevated troponin- History of segmental wall motion abnormalities on previous echo. Denies chest pain or other symptoms. EKG was nonischemic and repeat echo did not reveal any new wall motion abnormalities. Presumed CAD- cont medical management with ASA, Coreg and Crestor. Continues to deny chest pain or shortness of breath. 5. Chronic diastolic CHF 2/2 hypertensive heart disease. Compensated. Lasix switched to PO per home regimen. 6. HTN-controlled, borderline hypotensive, cont Coreg. Decreased hydralazine dose to 25 PO TID from 50 TID. 7. COPD-stable, no wheezing and oxygenating well on 2L nasal canula (baseline) 8. Pulmonary HTN-cont O2 and sildenafil 9. CKD IV-creat at baseline, cont to monitor, avoid nephrotoxic substances and renally dose meds as required. 10. FTRR-inwk-slaibdfdix. holding glipizide. has not needed insulin for many days. Cont diabetic diet. Stop fingersticks in accordance with goal of maximizing comfort. 11. Hypothyroidism-initial TSH was 11 and Synthroid was increased to 200mcg PO daily this admission. Repeat TSH in 6-8 weeks as outpatient. 12. Anemia of chronic disease-stable and at baseline. 13. Dementia- stable at this time. Avoid meds that may contribute to intermittent delirium. Of note, patient came in on Ativan .5 BID so this was continued. DVT proph-heparin DNR Dipso-to [facility] when medically stable. No earlier than Tuesday. [facility] Consultants: [facility]-Oncology Ortho ID Current Inpatient Medications: Current Inpatient Medications Medications (Trade) Dose Ordered Sig/Gilbert Route Start Time Stop Time Status Last Admin Dose Admin Heparin Sodium (Porcine) (Heparin Sq 5000 Unit/0.5ml) 5,000 unit Q12 SQ 12/14/16 21:00 01/13/17 20:59 12/26/16 09:13 5,000 UNIT Heparin Sodium (Porcine) (Heparin 100 Unit/ml 5ml Flush) 5 ml PRN PRN IV 12/14/16 21:00 01/13/17 20:59 12/26/16 05:47 5 ML Acetaminophen (Tylenol Tab) 650 mg Q6H PRN PO 12/14/16 22:30 01/13/17 22:29 12/23/16 18:47 650 MG Aspirin (Ecotrin Tab) 81 mg QAM PO 12/15/16 09:00 01/14/17 08:59 12/26/16 09:09 81 MG Carvedilol (Coreg Tab) 25 mg BID PO 12/15/16 09:00 01/14/17 08:59 12/26/16 09:11 25 MG Cyanocobalamin (Vitamin B-12 Tab) 1,000 mcg QAM PO 12/15/16 09:00 01/14/17 08:59 12/26/16 09:09 1,000 MCG Docusate Sodium (coLACE CAP) 100 mg DAILY PRN PO 12/14/16 22:30 01/13/17 22:29 Salmeterol Xinafoate/ Fluticasone (Advair Diskus 250/50 Inh) 1 puff BID PRN INH 12/14/16 22:30 01/13/17 22:29 Fluticasone Propionate (Flonase Nasal Fields) 2 sprays DAILY PRN LATRICE 12/14/16 22:30 01/13/17 22:29 Lorazepam (Ativan Tab) 0.5 mg BID PO 12/15/16 09:00 01/14/17 08:59 12/26/16 09:13 0.5 MG Polyethylene (Miralax Powder Packet) 17 gm DAILY PRN PO 12/14/16 22:30 01/13/17 22:29 Rosuvastatin Calcium (Crestor Tab) 40 mg QAM PO 12/15/16 09:00 01/14/17 08:59 12/26/16 09:09 40 MG Sildenafil Citrate (Revatio Tab) 20 mg TID PO 12/15/16 09:00 01/14/17 08:59 12/26/16 09:11 20 MG Pantoprazole Sodium (Protonix Tab) 40 mg QAM PO 12/15/16 09:00 01/14/17 08:59 12/26/16 09:09 40 MG Ondansetron HCl (Zofran Inj) 4 mg Q4H PRN IV 12/15/16 04:30 01/14/17 04:29 12/22/16 21:41 4 MG Levothyroxine Sodium (Synthroid Tab) 200 mcg DAILYBB PO 12/17/16 06:30 01/16/17 06:29 12/26/16 04:51 200 MCG Diclofenac Sodium (Voltaren 1% Top Gel) 1 appln BID PRN EXT 12/18/16 10:15 01/17/17 10:14 12/26/16 09:09 1 APPLN Magnesium Oxide (Mag-Ox Tab) 400 mg BID PO 12/23/16 21:00 01/22/17 20:59 12/26/16 09:10 400 MG Tramadol HCl (Ultram Tab) not relieved by tylenol @ Q6H PRN PO 12/23/16 21:30 01/22/17 21:29 12/26/16 04:51 50 MG Vancomycin HCl (Consult) 1 ea UD PRN N/A 12/24/16 18:42 01/23/17 18:41 Furosemide (Lasix Tab) 20 mg BID17 PO 12/25/16 09:00 01/24/17 08:59 12/26/16 09:10 20 MG Hydralazine HCl (Apresoline Tab) 25 mg TID PO 12/25/16 09:00 01/14/17 08:59 12/26/16 09:10 25 MG Vancomycin HCl 1000 mg/Sodium Chloride 270 ml @ 125 mls/hr Q24H IV 12/25/16 18:00 01/03/17 17:59 12/25/16 18:01 125 MLS/HR
[2016-12-26] MEDS: VANCOMYCIN INJ 1,000 MG in SODIUM CHLORIDE 0.9% 250ML 250 ML IV SCH (18:34)
[2016-12-27] VITALS (7 sets, daily range): BP systolic 92–115; BP diastolic 51–72; PULSE 73–95; TEMP 36.3–36.7; O2SAT 92–97
[2016-12-27] MEDS: LEVOTHYROXINE 200 MCG TAB PO SCH (05:56)
[2016-12-27 06:15] LABS: BUN/CREATININE RATIO 20.8 (10-20); CALCIUM 8.7 mg/dl (8.5-10.1); CREATININE 1.17 mg/dl (0.60-1.20); MAGNESIUM 2.3 mg/dl (1.8-2.4); POTASSIUM 4.2 mmol/L (3.5-5.1)
[2016-12-27 06:20] LABS: HEMATOCRIT 28.8 % (37-47); MEAN CELL VOLUME 105.9 fL (80-100); MEAN CORPUSCULAR HGB CONC 27.4 g/dl (32-36); MEAN PLATELET VOLUME 9.4 fL (7.4-10.4); PLATELET COUNT 96 K/uL (130-400); RED BLOOD COUNT 2.72 M/uL (4.2-5.4); WHITE BLOOD COUNT 10.72 K/uL (4.8-10.8)
[2016-12-27 06:21] LABS: PLT ESTIMATE DECREASED
[2016-12-27] MEDS: ROSUVASTATIN CALCIUM 20 MG TAB PO SCH (07:53)
[2016-12-27] MEDS: CYANOCOBALAMIN 500 MCG TAB (VIT B-12) PO SCH (07:53)
[2016-12-27] MEDS: FUROSEMIDE 20 MG TAB PO SCH ×2 (07:53→15:52)
[2016-12-27] MEDS: PANTOprazole SOD 40 MG TAB PO SCH (07:53)
[2016-12-27] MEDS: MAGNESIUM OXIDE 400 MG TAB PO SCH ×2 (07:53→20:19)
[2016-12-27] MEDS: ASPIRIN 81 MG ECTAB PO SCH (07:54)
[2016-12-27] MEDS: CARVEDILOL 25 MG TAB PO SCH (07:54)
[2016-12-27] MEDS: SILDENAFIL CITRATE 20 MG TAB PO SCH ×3 (07:54→20:19)
[2016-12-27] MEDS: HEPARIN SOD 5000 UNIT/0.5 ML CARP SQ SCH ×2 (07:56→20:20)
[2016-12-27] MEDS: LORAZEPAM 0.5 MG TAB PO SCH ×2 (08:39→20:18)
--- NOTE | 2016-12-27 11:00 | Orthopedic Progress Note ---
Orthopedic Progress Note Date of Service Dec 27, 2016. Subjective Additional Notes: Pt sitting in chair at bedside resting. Easily awoken. Family present. No new complaints. Objective RUE with swelling throughout. Moderate erythema and swelling at the right elbow. Very tender on palpation. Minimal ROM due to pain. Date Time Temp Pulse Resp B/P (MAP) Pulse Ox O2 Delivery O2 Flow Rate FiO2 12/27/16 08:00 97 Nasal Cannula 2.0 12/27/16 07:40 36.7 74 20 115/69 (84) 97 12/27/16 04:48 36.6 78 16 109/72 (84) 92 Nasal Cannula 2.0 12/27/16 00:00 Nasal Cannula 2.0 12/26/16 23:29 36.9 72 16 131/74 (93) 94 Nasal Cannula 2.0 12/26/16 19:13 36.9 79 18 112/45 (67) 99 Nasal Cannula 2.0 12/26/16 16:00 91 Nasal Cannula 2.0 12/26/16 15:14 36.6 74 18 113/67 (82) 91 12/26/16 11:11 36.7 67 18 111/67 (82) 100 Laboratory Results 24 Hours: Test 12/27/16 05:28 Hematocrit 28.8 % Hemoglobin 7.9 g/dL Assessment & Plan Assessment: Cellulitis Right Elbow with noted likely mets of the distal humerus with lytic lesion noted. No attempts to aspirate elbow joint until cellulitis clears as per Dr Ko. Will follow.
--- NOTE | 2016-12-27 13:53 | Palliative Care Progress Note ---
Palliative Care Progress Note Date of Service Dec 27, 2016. Subjective Pt evaluation today including: conversation w/ patient, conversation w/ family (son, Brian Faustin), physical exam, chart review, conversation w/ customer relations consultant Pain: none while not moving right arm PO Intake: tolerating diet Voiding: incontinence (per nursing documentation) -76 year old female patient with metastatic small cell lung cancer. Mets to right arm, right arm also with cellulitis. Receiving abx. Heme/onc, ID, and ortho are following as well as palliative. Seen by palliative on Tuesday, patient is confused. Palliative spoke with patient's son Brian, who stated that after this hospitalization patient likely would go back to [facility] for skilled rehab then transition to comfort care/hospice. -Patient's arm is more edematous today, but redness is improved. Mental status remains the same-- confused. -Met with patient's son to redo POLST form. See plan below. Review of Systems Constitutional: + weakness, No fever, No chills ENT: No trouble swallowing Respiratory: No cough, No shortness of breath Cardiac: + edema, No chest pain Abdomen: No pain, No nausea, No vomiting Female : + incontinence Psychiatric: No anxiety Objective Vital Signs Date Time Temp Pulse Resp B/P (MAP) Pulse Ox O2 Delivery O2 Flow Rate FiO2 12/27/16 11:44 36.3 75 16 92/52 (65) 92 2.0 12/27/16 08:00 97 Nasal Cannula 2.0 12/27/16 07:40 36.7 74 20 115/69 (84) 97 12/27/16 04:48 36.6 78 16 109/72 (84) 92 Nasal Cannula 2.0 12/27/16 00:00 Nasal Cannula 2.0 12/26/16 23:29 36.9 72 16 131/74 (93) 94 Nasal Cannula 2.0 12/26/16 19:13 36.9 79 18 112/45 (67) 99 Nasal Cannula 2.0 12/26/16 16:00 91 Nasal Cannula 2.0 12/26/16 15:14 36.6 74 18 113/67 (82) 91 Physical Exam General Appearance: no apparent distress, + obese ENT: hearing grossly normal Neck: supple, no JVD Respiratory/Chest: no respiratory distress, no accessory muscle use, + decreased breath sounds Cardiovascular: regular rate, rhythm, + pertinent finding (right arm with >+4, severe, edema. BLE with +1 pitting edema) Abdomen: normal bowel sounds, non tender, soft Extremities: + pertinent finding (right arm grossly edematous with erythema around elbow and posterior/tricep area) Neurologic/Psychiatric: alert, normal mood/affect, + disoriented (oriented to person and place) Laboratory Results Last 24 Hours Test 12/27/16 05:28 White Blood Count 10.72 K/uL Red Blood Count 2.72 M/uL Hemoglobin 7.9 g/dL Hematocrit 28.8 % Mean Corpuscular Volume 105.9 fL Mean Corpuscular Hemoglobin 29.0 pg Mean Corpuscular Hemoglobin Concent 27.4 g/dl RDW Standard Deviation 71.2 fL RDW Coefficient of Variation 18.4 % Platelet Count 96 K/uL Mean Platelet Volume 9.4 fL Platelet Estimate DECREASED Sodium Level 138 mmol/L Potassium Level 4.2 mmol/L Chloride Level 100 mmol/L Carbon Dioxide Level 36 mmol/L Anion Gap 2.0 mmol/L Blood Urea Nitrogen 24 mg/dl Creatinine 1.17 mg/dl Est Creatinine Clear Calc Drug Dose 35.5 ml/min Estimated GFR () 52.1 Estimated GFR (Non- 44.9 BUN/Creatinine Ratio 20.8 Random Glucose 123 mg/dl Calcium Level 8.7 mg/dl Magnesium Level 2.3 mg/dl Assessment and Plan Problem list: Altered mental status with history of dementia Urinary retention- Syed being placed today Hypercalcemia related to malignancy- improved Right arm cellulitis and edema- PO Vibramycin Elevated troponin- EKG with nothing acute Hx COPD, CHF, CKD, anemia of chronic disease Goals of care (Z51.5) Palliative care recs: discussed with patient, son Brian, and Dr. Torres. -76 year old with metastatic lung cancer. Mets and cellulitis to right arm. Edema is worse today, but erythema is slightly improved. Difficult to say whether this will clear up/improve as it continues to worsen and could really be lymphedema related to the cancer. -Ortho saw patient- no plans for aspiration of joint due to the cellulitis and possibility of seeding the joint. -Awaiting ID consult. IV vancomycin continues at this time. -SonBrian, is okay with continuing current medical treatment with the goal of getting right arm better so patient can be more comfortable and participate in therapy/rehab once back at the [facility]; but also states that if there is no improvement seen in the right arm, he and the family will be understanding and may decide to discontinue IV abx. -Goal is really for patient's comfort. Once patient leaves the hospital, as stated, the goal is for skilled rehab then a transition to comfort measures only and hospice. If decompensation occurs, the do not want patient to be sent back to the hospital. Brian states that his siblings are all in agreement with this as well. -POLST form redone and signed by patient's son Brian with patient's permission. This will take effect once patient is out of hospital: DNR, comfort measures only, abx with comfort as the goal, no artificial hydration/nutrition. Brian Faustin is surrogate decision maker. Thank you again for this consult. I will follow as needed. Palliative Performance Scale: 40 % Continued [facility] stay due to: multiple IV medications needed, other (acute care continues) Discharge planning: [facility] facility
--- NOTE | 2016-12-27 15:23 | Progress Note ---
Medicine Progress Note Date & Time of Visit: Dec 27, 2016 at 11:00. Subjective Patient is a 76yo F [facility] resident with a PMH of Stage IV non-small cell lung cancer who presented with a RUE cellulitis and confusion. The cellulitis was treated with Vancomycin with improvement and she was switched to doxycycline PO for several days. However, erythema, inflammation and decreased ROM of her R elbow worsened. The patient continues to exhibit dementia symptoms and periods of confusion. She sustained a fall from her chair overnight on 12/24 as she was agitated and also had some urinary retention for which a Syed was placed (12/24). This was removed 12/25 with no subsequent issues. Palliative Care saw patient and has been working with her son who is essentially mPOA. Her POLST was updated to reflect her new code status of DNR. Per PC, her son is considering stopping treatment in the next couple of days if things do not turn around. Orthopedics was consulted over the weekend for consideration of a septic joint. An MRI was ordered, however, the family declined this saying it would be too much for her. Awaiting further Ortho recs at this time. -tolerating PO -pain in R arm worse -swelling and decreased ROM is same or worse -afebrile -pt denies other issues at this time. Objective Last 8 Hrs Date Time Temp Pulse Resp B/P (MAP) Pulse Ox O2 Delivery O2 Flow Rate FiO2 12/27/16 08:00 97 Nasal Cannula 2.0 12/27/16 07:40 36.7 74 20 115/69 (84) 97 12/27/16 04:48 36.6 78 16 109/72 (84) 92 Nasal Cannula 2.0 Physical Exam: GEN: obese, elderly, in no acute distress, alert and answering questions appropriately HEENT: NC/AT, normal sclerae, MMM CARDIO: reg rate, S1/2 heard without m/g/r, Port in anterior chest wall-accessed , no surrounding erythema LUNGS: CTA bilaterally with diminished breath sounds throughout, no crackles, rales or wheezes, good diaphragmatic excursion. ABD: soft, non-tender, non-distended, no rebound or guarding, +BS EXTREMITY: RUE with significant edema in entire RUE and with erythema and warmth over olecranon process with limited active ROM of the elbow. RP and DP palpable 2+ bilat, trace bilateral LE swelling but no pitting edema is present, extremities are warm and well-perfused NEURO: CN 2-12 grossly intact MUSC: moves all extremities equally, no gross focal deficits. Appears very weak and generally deconditioned. SKIN: warm and dry and R arm as above. Laboratory Results: 12/27/16 05:28 12/27/16 05:28 Test 12/14/16 14:19 12/14/16 14:25 12/14/16 14:26 12/14/16 14:49 Hypogranular Neutrophils 1+ Stomatocytes 1+ Total Bilirubin 0.3 mg/dl (0.2-1) Direct Bilirubin 0.1 mg/dl (0-0.2) Aspartate Amino Transf (AST/SGOT) 46 U/L (15-37) Alanine Aminotransferase (ALT/SGPT) 47 U/L (12-78) Alkaline Phosphatase 64 U/L (45-117) Total Protein 6.8 gm/dl (6.4-8.2) Lipase 212 U/L (73-393) Bedside Lactic Acid Venous 0.91 mmol/L (0.90-1.70) Bedside Troponin I 0.080 ng/ml (0-0.045) Urine Color YELLOW Urine Appearance CLEAR (CLEAR) Urine pH 7.0 (4.5-7.5) Urine Specific [place] 1.011 (1.000-1.030) Urine Protein NEG (NEG) Urine Glucose (UA) NEG (NEG) Urine Ketones NEG (NEG) Urine Occult Blood NEG (NEG) Urine Nitrite NEG (NEG) Urine Bilirubin NEG (NEG) Urine Urobilinogen NEG (NEG) Urine Leukocyte Esterase NEG (NEG) Test 12/15/16 02:21 12/15/16 02:22 12/15/16 11:56 12/16/16 05:39 Total Creatine Kinase 28 U/L (26-192) Creatine Kinase MB 1.0 ng/ml (0.5-3.6) Creatine Kinase MB Ratio 3.6 (0-3.0) Troponin I 0.075 ng/ml (0-0.045) Thyroid Stimulating Hormone (TSH) 11.000 uIu/ml (0.300-4.500) Prothrombin Time 11.5 SECONDS (9.0-12.0) Prothromb Time International Ratio 1.1 (0.9-1.1) Random Vancomycin Level 15.7 mcg/ml Polychromasia 1+ Basophilic Stippling 1+ Anisocytosis PRESENT Test 12/17/16 17:54 12/19/16 05:32 12/23/16 05:30 12/25/16 05:36 Erythrocyte Sedimentation Rate 58 mm/hr (0-21) C-Reactive Protein 4.92 mg/dl (0-0.29) Vancomycin Level Trough 18.7 mcg/ml (SEE COMMENT) Vitamin D 1,25-Dihydroxy Total 39 pg/mL (18-72) 1,25 Dihydroxy Vitamin D2 <8 pg/mL 1,25 Dihydroxy Vitamin D3 39 pg/mL Parathyroid Hormone (Intact) < 5.5 pg/mL (11.1-79.5) Parathyroid Hormone Related Protein 45 pg/mL (14-27) Tear Drop Cells OCCASIONAL Ovalocytes 1+ Ionized Calcium 1.37 mmol/l (1.12-1.32) Albumin 2.4 gm/dl (3.4-5.0) 25-Hydroxy Vitamin D Total 37.0 ng/ml (30-100) Immature Granulocyte % (Auto) 0.4 % White Blood Count 9.61 K/uL (4.8-10.8) Red Blood Count 2.73 M/uL (4.2-5.4) Hemoglobin 7.8 g/dL (12.0-16.0) Hematocrit 28.2 % (37-47) Mean Corpuscular Volume 103.3 fL (80-100) Mean Corpuscular Hemoglobin 28.6 pg (25-34) Mean Corpuscular Hemoglobin Concent 27.7 g/dl (32-36) Platelet Count 107 K/uL (130-400) Mean Platelet Volume 9.1 fL (7.4-10.4) Neutrophils (%) (Auto) 82.6 % Lymphocytes (%) (Auto) 7.0 % Monocytes (%) (Auto) 8.8 % Eosinophils (%) (Auto) 1.0 % Basophils (%) (Auto) 0.2 % Neutrophils # (Auto) 7.93 K/uL (1.4-6.5) Lymphocytes # (Auto) 0.67 K/uL (1.2-3.4) Monocytes # (Auto) 0.85 K/uL (0.11-0.59) Eosinophils # (Auto) 0.10 K/uL (0-0.5) Basophils # (Auto) 0.02 K/uL (0-0.2) Immature Granulocyte # (Auto) 0.04 K/uL (0.00-0.02) Hypochromasia PRESENT Poikilocytosis PRESENT Test 12/25/16 07:28 12/27/16 05:28 Bedside Glucose 107 mg/dl (70-90) Red Blood Count 2.72 M/uL (4.2-5.4) Mean Corpuscular Volume 105.9 fL (80-100) Mean Corpuscular Hemoglobin 29.0 pg (25-34) Mean Corpuscular Hemoglobin Concent 27.4 g/dl (32-36) RDW Standard Deviation 71.2 fL (36.4-46.3) RDW Coefficient of Variation 18.4 % (11.5-14.5) Mean Platelet Volume 9.4 fL (7.4-10.4) Platelet Estimate DECREASED Anion Gap 2.0 mmol/L (3-11) Est Creatinine Clear Calc Drug Dose 35.5 ml/min Estimated GFR () 52.1 Estimated GFR (Non- 44.9 BUN/Creatinine Ratio 20.8 (10-20) Calcium Level 8.7 mg/dl (8.5-10.1) Magnesium Level 2.3 mg/dl (1.8-2.4) Date/Time Source Procedure Growth Status 12/14/16 14:34 Blood Blood Culture - Final NO GROWTH Complete 12/15/16 09:35 Nasal MRSA DNA Surveillance Screen - Final Specimen Negative for MRSA by DNA Probe Complete 12/14/16 14:49 Urine,Catheterized Urine Culture - Final NO GROWTH - LESS THAN 1,000 COLONIES/ML Complete Last 24 Hours Test 12/27/16 05:28 White Blood Count 10.72 K/uL Red Blood Count 2.72 M/uL Hemoglobin 7.9 g/dL Hematocrit 28.8 % Mean Corpuscular Volume 105.9 fL Mean Corpuscular Hemoglobin 29.0 pg Mean Corpuscular Hemoglobin Concent 27.4 g/dl RDW Standard Deviation 71.2 fL RDW Coefficient of Variation 18.4 % Platelet Count 96 K/uL Mean Platelet Volume 9.4 fL Platelet Estimate DECREASED Sodium Level 138 mmol/L Potassium Level 4.2 mmol/L Chloride Level 100 mmol/L Carbon Dioxide Level 36 mmol/L Anion Gap 2.0 mmol/L Blood Urea Nitrogen 24 mg/dl Creatinine 1.17 mg/dl Est Creatinine Clear Calc Drug Dose 35.5 ml/min Estimated GFR () 52.1 Estimated GFR (Non- 44.9 BUN/Creatinine Ratio 20.8 Random Glucose 123 mg/dl Calcium Level 8.7 mg/dl Magnesium Level 2.3 mg/dl Assessment & Plan Patient is a 76yo F [facility] resident with a PMH of Stage IV non-small cell lung cancer who presented with a RUE cellulitis and confusion. The cellulitis was treated with Vancomycin with improvement and she was switched to doxycycline PO for several days. However, erythema, inflammation and decreased ROM of her R elbow worsened. The patient continues to exhibit dementia symptoms and periods of confusion. She sustained a fall from her chair overnight on 12/24 as she was agitated and also had some urinary retention for which a Syed was placed (12/24). This was removed 12/25 with no subsequent issues. Palliative Care saw patient and has been working with her son who is essentially mPOA. Her POLST was updated to reflect her new code status of DNR. Per PC, her son is considering stopping treatment in the next couple of days if things do not turn around. Orthopedics was consulted over the weekend for consideration of a septic joint. An MRI was ordered, however, the family declined this saying it would be too much for her. Awaiting further Ortho recs at this time. 1. RUE cellulitis with underlying bony mets per CT scan and -edema, warmth and redness have not continued to improve on the IV vanco. Cont this for now and await Ortho assessment of her elbow joint. Per Dr. Ortega, no therapy is available to improve this and the swelling is coming from lymphatic obstruction in the axillary area. 2. Hypercalcemia of malignancy-resolved after Zometa. 3. SCLC-Stage IV with bony mets to RUE as above. Management per Oncology who has decided against further treatment in this case. This plan was discussed with patient and family who understand and are considering Hospice care at this time. 4. Elevated troponin- History of segmental wall motion abnormalities on previous echo. Denies chest pain or other symptoms. EKG was nonischemic and repeat echo did not reveal any new wall motion abnormalities. Presumed CAD- cont medical management with ASA, Coreg and Crestor. Continues to deny chest pain or shortness of breath. 5. Chronic diastolic CHF 2/2 hypertensive heart disease. Compensated. Lasix switched to PO per home regimen. 6. HTN-more hypotensive today. Initially cut hydralazine by 50% but still hypotensive. Stop hydralazine and decrease Coreg to minimal amount. Cont Revatio for PH 7. COPD-stable, no wheezing and oxygenating well on 2L nasal canula (baseline) 8. Pulmonary HTN-cont O2 and sildenafil 9. CKD IV-creat at baseline, cont to monitor, avoid nephrotoxic substances and renally dose meds as required. 10. [id number]. holding glipizide. has not needed insulin for many days. Cont diabetic diet. Stop fingersticks in accordance with goal of maximizing comfort. 11. Hypothyroidism-initial TSH was 11 and Synthroid was increased to 200mcg PO daily this admission. Repeat TSH in 6-8 weeks as outpatient. 12. Anemia of chronic disease-stable and at baseline. 13. Dementia- stable at this time. Avoid meds that may contribute to intermittent delirium. Of note, patient came in on Ativan .5 BID so this was continued. DVT proph-heparin DNR Dipso-uncertain at this time. DO Greg [facility] Consultants: Ortega-Oncology Ortho ID Current Inpatient Medications: Current Inpatient Medications Medications (Trade) Dose Ordered Sig/Gilbert Route Start Time Stop Time Status Last Admin Dose Admin Heparin Sodium (Porcine) (Heparin Sq 5000 Unit/0.5ml) 5,000 unit Q12 SQ 12/14/16 21:00 01/13/17 20:59 12/27/16 07:56 5,000 UNIT Heparin Sodium (Porcine) (Heparin 100 Unit/ml 5ml Flush) 5 ml PRN PRN IV 12/14/16 21:00 01/13/17 20:59 12/27/16 05:26 5 ML Acetaminophen (Tylenol Tab) 650 mg Q6H PRN PO 12/14/16 22:30 01/13/17 22:29 12/23/16 18:47 650 MG Aspirin (Ecotrin Tab) 81 mg QAM PO 12/15/16 09:00 01/14/17 08:59 12/27/16 07:54 81 MG Carvedilol (Coreg Tab) 25 mg BID PO 12/15/16 09:00 01/14/17 08:59 12/27/16 07:54 25 MG Cyanocobalamin (Vitamin B-12 Tab) 1,000 mcg QAM PO 12/15/16 09:00 01/14/17 08:59 12/27/16 07:53 1,000 MCG Docusate Sodium (coLACE CAP) 100 mg DAILY PRN PO 12/14/16 22:30 01/13/17 22:29 Salmeterol Xinafoate/ Fluticasone (Advair Diskus 250/50 Inh) 1 puff BID PRN INH 12/14/16 22:30 01/13/17 22:29 Fluticasone Propionate (Flonase Nasal [place]) 2 sprays DAILY PRN LATRICE 12/14/16 22:30 01/13/17 22:29 Lorazepam (Ativan Tab) 0.5 mg BID PO 12/15/16 09:00 01/14/17 08:59 12/26/16 20:50 0.5 MG Polyethylene (Miralax Powder Packet) 17 gm DAILY PRN PO 12/14/16 22:30 01/13/17 22:29 Rosuvastatin Calcium (Crestor Tab) 40 mg QAM PO 12/15/16 09:00 01/14/17 08:59 12/27/16 07:53 40 MG Sildenafil Citrate (Revatio Tab) 20 mg TID PO 12/15/16 09:00 01/14/17 08:59 12/27/16 07:54 20 MG Pantoprazole Sodium (Protonix Tab) 40 mg QAM PO 12/15/16 09:00 01/14/17 08:59 12/27/16 07:53 40 MG Ondansetron HCl (Zofran Inj) 4 mg Q4H PRN IV 12/15/16 04:30 01/14/17 04:29 12/22/16 21:41 4 MG Levothyroxine Sodium (Synthroid Tab) 200 mcg DAILYBB PO 12/17/16 06:30 01/16/17 06:29 12/27/16 05:56 200 MCG Diclofenac Sodium (Voltaren 1% Top Gel) 1 appln BID PRN EXT 12/18/16 10:15 01/17/17 10:14 12/26/16 20:52 1 APPLN Magnesium Oxide (Mag-Ox Tab) 400 mg BID PO 12/23/16 21:00 01/22/17 20:59 12/27/16 07:53 400 MG Tramadol HCl (Ultram Tab) not relieved by tylenol @ Q6H PRN PO 12/23/16 21:30 01/22/17 21:29 12/26/16 20:52 25 MG Vancomycin HCl (Consult) 1 ea UD PRN N/A 12/24/16 18:42 01/23/17 18:41 Furosemide (Lasix Tab) 20 mg BID17 PO 12/25/16 09:00 01/24/17 08:59 12/27/16 07:53 20 MG Hydralazine HCl (Apresoline Tab) 25 mg TID PO 12/25/16 09:00 01/14/17 08:59 12/27/16 07:53 25 MG Vancomycin HCl 1000 mg/Sodium Chloride 270 ml @ 125 mls/hr Q24H IV 12/25/16 18:00 01/03/17 17:59 12/26/16 18:34 125 MLS/HR
[2016-12-27] MEDS: ACETAMINOPHEN 500 MG TAB PO SCH ×2 (15:52→20:20)
--- NOTE | 2016-12-27 16:24 | Progress Note ---
Orthopedic SOAP Note Subjective Date of Service: Dec 27, 2016. Additional Notes: no major pain at rest Problem List Medical Problems: (1) Altered mental status Status: Acute (2) Chemotherapy-induced nausea Status: Acute (3) Elevated troponin Status: Acute (4) Hypoxia Status: Acute (5) Hypoxia Status: Acute (6) Hypoxia Status: Acute (7) Influenza B Status: Acute (8) Neutropenia Status: Acute (9) Pleural effusion Status: Acute (10) Pleural effusion Status: Acute (11) Pneumonia Status: Acute (12) Right arm cellulitis Status: Acute (13) SOB (shortness of breath) Status: Acute (14) SOB (shortness of breath) Status: Acute (15) Thrombocytopenia Status: Acute (16) Weakness Status: Acute Social History Problems: (1) Carotid stenosis Status: Chronic Objective massive edema right arm with lateral and posterior erythema ,rom 60 - 90 degrees. Date Time Temp Pulse Resp B/P (MAP) Pulse Ox O2 Delivery O2 Flow Rate FiO2 12/27/16 16:00 Nasal Cannula 2.0 12/27/16 15:29 36.7 73 18 92/53 (66) 96 Nasal Cannula 2.0 12/27/16 14:07 74 18 92/51 (65) 97 Nasal Cannula 2.0 12/27/16 11:44 36.3 75 16 92/52 (65) 92 2.0 12/27/16 08:00 97 Nasal Cannula 2.0 12/27/16 07:40 36.7 74 20 115/69 (84) 97 12/27/16 04:48 36.6 78 16 109/72 (84) 92 Nasal Cannula 2.0 12/27/16 00:00 Nasal Cannula 2.0 12/26/16 23:29 36.9 72 16 131/74 (93) 94 Nasal Cannula 2.0 12/26/16 19:13 36.9 79 18 112/45 (67) 99 Nasal Cannula 2.0 Laboratory Results 24 Hours: Test 12/27/16 05:28 Hematocrit 28.8 % Hemoglobin 7.9 g/dL Assessment Cellulitis Right Elbow with noted likely mets of the distal humerus with lytic lesion noted. No attempts to aspirate elbow joint until cellulitis clears as per Dr Ko. Will follow. Plan condider repeat CT or MRI WOUD BE BETTER IF CONDITION WORSENS . no obvious joint effusion or abscess per prior CT 12/22.continue conservative care ,any aspiration would be very difficult due to lack of any landmarks and would have to be assisted by imaging.
[2016-12-27] MEDS ORDERED: VANCOMYCIN TROUGH SCH (17:30)
[2016-12-27] MEDS: VANCOMYCIN INJ 1,000 MG in SODIUM CHLORIDE 0.9% 250ML 250 ML IV SCH (17:55)
[2016-12-27] MEDS: CARVEDILOL 3.125 MG TAB PO SCH (20:19)
[2016-12-27] MEDS: TRAMADOL HCL 50 MG TAB PO PRN (23:36)
[2016-12-28 00:31] VITALS: BP 101/59; PULSE 79; TEMP 36.7; O2SAT 91
[2016-12-28] MEDS: ACETAMINOPHEN 500 MG TAB PO SCH ×3 (06:00→13:56)
[2016-12-28] MEDS: LEVOTHYROXINE 200 MCG TAB PO SCH ×2 (06:02→06:05)
[2016-12-28 07:42] VITALS: BP 122/67; PULSE 103; TEMP 36.5; O2SAT 90
[2016-12-28 08:15] VITALS: O2SAT 95
[2016-12-28] MEDS: FUROSEMIDE 20 MG TAB PO SCH ×2 (08:37→17:00)
[2016-12-28] MEDS: MAGNESIUM OXIDE 400 MG TAB PO SCH (08:37)
[2016-12-28] MEDS: ROSUVASTATIN CALCIUM 20 MG TAB PO SCH (08:37)
[2016-12-28] MEDS: ASPIRIN 81 MG ECTAB PO SCH (08:37)
[2016-12-28] MEDS: PANTOprazole SOD 40 MG TAB PO SCH (08:37)
[2016-12-28] MEDS: CYANOCOBALAMIN 500 MCG TAB (VIT B-12) PO SCH (08:38)
[2016-12-28] MEDS: CARVEDILOL 3.125 MG TAB PO SCH (08:38)
[2016-12-28] MEDS: SILDENAFIL CITRATE 20 MG TAB PO SCH ×2 (08:38→13:56)
[2016-12-28] MEDS: DICLOFENAC SOD 1% GEL 100 GM TUBE EXT PRN (08:39)
[2016-12-28] MEDS: HEPARIN SOD 5000 UNIT/0.5 ML CARP SQ SCH (08:42)
[2016-12-28] MEDS: TRAMADOL HCL 50 MG TAB PO PRN (08:48)
[2016-12-28] MEDS: LORAZEPAM 0.5 MG TAB PO SCH (08:48)
--- NOTE | 2016-12-28 09:40 | DIAGNOSTIC IMAGING REPORT ---
CHEST ONE VIEW PORTABLE CLINICAL HISTORY: SOB COMPARISON STUDY: 12/21/2016 FINDINGS: The heart is enlarged. There is a stable right apical mass. There is right hilar enlargement consistent with the patient's known right hilar mass.. There is elevation of the interstitium likely secondary to congestive failure/fluid overload. As a right internal jugular A-Port catheter with its tip projected in the superior vena cava. There is no lobar consolidation.[ IMPRESSION: 1. Persistent cardiomegaly 2. Stable right hilar mass/adenopathy 3. Elevation of the interstitium suggesting underlying congestive failure/fluid overload 4. Stable right apical mass Electronically signed by: Jose Lawson M.D. 12/28/2016 9:38 AM Dictated Date/Time: 12/28/2016 9:36 AM
--- NOTE | 2016-12-28 10:33 | Pharmacy Progress Note ---
Pharmacy Abx Dose Progress Nt Date of Service Dec 28, 2016. Pharmacy Dosing Scope The patient is currently receiving the following antimicrobial agents per Pharmacy consult: Vancomycin 1000 mg IV/PO every 24 hours Objective Height (Feet): 5 Height (Inches): 0.00 Weight (Kilograms): 73.000 Vital Signs (Past 12Hrs) Vital Signs Past 12 Hours Date Time Temp Pulse Resp B/P (MAP) Pulse Ox O2 Delivery O2 Flow Rate FiO2 12/28/16 08:15 95 Nasal Cannula 3.0 12/28/16 07:42 36.5 103 18 122/67 (85) 90 Nasal Cannula 4.0 12/28/16 00:31 36.7 79 18 101/59 (73) 91 Nasal Cannula 3.0 12/28/16 00:00 Nasal Cannula 3.0 Micro Results Date/Time Source Procedure Growth Status 12/14/16 14:34 Blood Blood Culture - Final NO GROWTH Complete 12/14/16 14:19 Blood Blood Culture - Final NO GROWTH Complete 12/15/16 09:35 Nasal MRSA DNA Surveillance Screen - Final Specimen Negative for MRSA by DNA Probe Complete 12/14/16 14:49 Urine,Catheterized Urine Culture - Final NO GROWTH - LESS THAN 1,000 COLONIES/ML Complete Risk Factors for Resistance * Resident in a [place] health care facility or extended-care facility * Current hospitalization > 5 days * Immunocompromised (chronic steroid therapy, chemotherapy, immunomodulators) * Antimicrobial use within the last 90 days (was on Keflex [employer] here and Doxycycline PO on this admission). Assessment & Plan Assessment 76 year old female with right elbow cellulitis with underlying bony mets. * h/o stage IV non-small cell lung cancer, CKD IV * Initially treated with Vancomycin IV. Changed to Doxycycline PO with worsening of symptoms. * Patient restarted on vanc on 12/24 - today is day # 5 Plan Vancomycin IV * Trough level of 19 mcg/mL is therapeutic * Continue dose of 1000 mg IV every 24 hours * Goal trough level : 15 to 20 mcg/mL * Further trough levels will be ordered with change in clinical status/ continued treatment Pharmacy will continue to follow and will adjust dose/frequency as necessary. Thank you.
--- NOTE | 2016-12-28 11:09 | Progress Note ---
Medicine Progress Note Date & Time of Visit: Dec 28, 2016 at 11:08 . Subjective Somnolent, minimally responsive. Appears to be comfortable. . Objective Last 8 Hrs Date Time Temp Pulse Resp B/P (MAP) Pulse Ox O2 Delivery O2 Flow Rate FiO2 12/28/16 08:15 95 Nasal Cannula 3.0 12/28/16 07:42 36.5 103 18 122/67 (85) 90 Nasal Cannula 4.0 Physical Exam: General- no apparent distress Neck- slight JVD Lungs- few rhonchi Heart- RRR, no gallop appreciated Abdomen- + BS, soft, nontender Extremities- RUE swelling; 1+ pretibial edema; no calf tenderness Neuro- lethargic . 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 Treated with palliative chemotherapy March --> October 2016. Presented with confusion and right upper extremity swelling as discussed below. Developed hypercalcemia. Medical Oncology consulted. PTH-related protein was elevated, due to underlying malignancy. Bone scan demonstrated increased uptake in RUE worrisome for metastatic disease. CT chest demonstrated enlarging right apical mass with lytic erosion into right 2nd rib and adjacent soft tissues; extensive mediastinal, right hilar, right subpectoral, right axillary metastatic adenopathy; multifocal pleural and parenchymal mets. CT right upper extremity demonstrated "lytic cortical erosion with spiculated aggressive-appearing periostitis". Medical Oncology recommended conservative / palliative management. RIGHT UPPER EXTREMITY SWELLING Presented with RUE swelling, erythema, pain. Initial concern was that patient might have cellulitis. She was treated with antibiotics without significant improvement. CT findings as summarized above indicated disease in right lung apex, right axilla, right humerus. Most likely that RUE pain & swelling due to malignancy rather than infection. HYPERCALCEMIA Serum calcium as high as 12.4. Differential diagnosis included bone metastases and PTHrP. Stopped cholecalciferol. PTH < 5.5. PTHrP elevated due to underlying malignancy. Discussed with Medical Oncology. Bone scan - increased uptake in right humerus, nonspecific. CT of chest and right upper extremity as summarized above indicated progressive disease with metastases to bone. Received IV NSS, furosemide, zoledronic acid with improvement. SUSPECTED CAD / ELEVATED TROPONIN History of segmental wall motion abnormalities on previous echo. No anginal symptoms. Serum troponin as high as 0.086. Total CPK and CPK-MB normal. EKG on admission showed NSR, RBBB, repolarization abnormalities. Echo did not show any wall motion abnormalities. Elevated troponin probably nonspecific elevation secondary to infection and not due to acute coronary syndrome. Continue aspirin, carvedilol, statin. CHF Acute / chronic diastolic CHF, possibly secondary to hypertensive heart disease. Chest x-ray this morning showed cardiomegaly, mild interstitial prominence. Continue diuretics as needed. HYPERTENSION Continue carvedilol, hydralazine. COPD Pulmonary status stable. Titrate O2 to keep O2 sats around 90%. Continue bronchodilators. PULMONARY HYPERTENSION Continue O2, sildenafil. GERD Continue PPI. CKD IV Serum creatinine 1.31 on admission. Creatinine yesterday = 1.17. Follow. DM TYPE 2 Well-controlled. Hgb A1C = 6.0 11/15/16. Usually managed with glipizide- hold during hospital stay. FBS yesterday 123. HYPOTHYROIDISM TSH = 11. Increased levothyroxine from 150 mcg to 200 mcg daily. Follow. DYSLIPIDEMIA Continue statin. ANEMIA Hgb 7.9-8.6. Chronic, multifactorial. Underlying malignancy. Hemoglobin yesterday = 7.9. No indication for transfusion at this time per guidelines. Follow. DEMENTIA / DELIRIUM Noted to have hallucinations prior to admission. Head CT did not show any evidence of acute stroke, bleed, mass. Probable encephalopathy / delirium, multifactorial. Avoid meds with anticholinergic side effects. Continue chronic lorazepam for anxiety, but will not escalate. Supervision as necessary for patient's safety. VTE PROPHYLAXIS SQ heparin. RESUSCITATION STATUS Resuscitation status at time of admission CPR without intubation / mechanical ventilation per POLST and discussion with family. Has stage IV lung Ca with worsening hypercalcemia. Chances of a satisfactory outcome with PCR extremely low. Unable to discuss with patient due to her dementia. Spoke with son Brian. He consulted with his siblings. Code status changed to "Level 5" (DNR). Palliative Care consulted. POLST form updated. DISPOSITION Expected return to [facility]. Family Medicine follow-up with Dr. Verduog. Medical Oncology follow-up with Dr. Veto Ortega. ADDENDUM: Spoke with Palliative Care this morning. Met with sons Brian and Anya around 13:00. Patient remains lethargic, probably secondary to analgesics. Current status, concerns, prognosis discussed. They indicated that the focus of care should be comfort. No apparent benefit from ongoing IV antibiotic therapy, so vancomycin will be discontinued. Continue analgesics and other palliative measures. . Continued [facility] stay due to: other (acute care continues) Consultants: Medical Oncology Orthopedics ID . Current Inpatient Medications: Current Inpatient Medications Medications (Trade) Dose Ordered Sig/Gilbert Route Start Time Stop Time Status Last Admin Dose Admin Heparin Sodium (Porcine) (Heparin Sq 5000 Unit/0.5ml) 5,000 unit Q12 SQ 12/14/16 21:00 01/13/17 20:59 12/28/16 08:42 5,000 UNIT Heparin Sodium (Porcine) (Heparin 100 Unit/ml 5ml Flush) 5 ml PRN PRN IV 12/14/16 21:00 01/13/17 20:59 12/27/16 20:22 5 ML Aspirin (Ecotrin Tab) 81 mg QAM PO 12/15/16 09:00 01/14/17 08:59 12/28/16 08:37 81 MG Cyanocobalamin (Vitamin B-12 Tab) 1,000 mcg QAM PO 12/15/16 09:00 01/14/17 08:59 12/28/16 08:38 1,000 MCG Docusate Sodium (coLACE CAP) 100 mg DAILY PRN PO 12/14/16 22:30 01/13/17 22:29 Salmeterol Xinafoate/ Fluticasone (Advair Diskus 250/50 Inh) 1 puff BID PRN INH 12/14/16 22:30 01/13/17 22:29 Fluticasone Propionate (Flonase Nasal [place]) 2 sprays DAILY PRN LATRICE 12/14/16 22:30 01/13/17 22:29 Lorazepam (Ativan Tab) 0.5 mg BID PO 12/15/16 09:00 01/14/17 08:59 12/28/16 08:48 0.5 MG Polyethylene (Miralax Powder Packet) 17 gm DAILY PRN PO 12/14/16 22:30 01/13/17 22:29 12/28/16 08:53 17 GM Rosuvastatin Calcium (Crestor Tab) 40 mg QAM PO 12/15/16 09:00 01/14/17 08:59 12/28/16 08:37 40 MG Sildenafil Citrate (Revatio Tab) 20 mg TID PO 12/15/16 09:00 01/14/17 08:59 12/28/16 08:38 20 MG Pantoprazole Sodium (Protonix Tab) 40 mg QAM PO 12/15/16 09:00 01/14/17 08:59 12/28/16 08:37 40 MG Ondansetron HCl (Zofran Inj) 4 mg Q4H PRN IV 12/15/16 04:30 01/14/17 04:29 12/22/16 21:41 4 MG Levothyroxine Sodium (Synthroid Tab) 200 mcg DAILYBB PO 12/17/16 06:30 01/16/17 06:29 12/27/16 05:56 200 MCG Diclofenac Sodium (Voltaren 1% Top Gel) 1 appln BID PRN EXT 12/18/16 10:15 01/17/17 10:14 12/28/16 08:39 1 APPLN Magnesium Oxide (Mag-Ox Tab) 400 mg BID PO 12/23/16 21:00 01/22/17 20:59 12/28/16 08:37 400 MG Tramadol HCl (Ultram Tab) not relieved by tylenol @ Q6H PRN PO 12/23/16 21:30 01/22/17 21:29 12/28/16 08:48 25 MG Vancomycin HCl (Consult) 1 ea UD PRN N/A 12/24/16 18:42 01/23/17 18:41 Furosemide (Lasix Tab) 20 mg BID17 PO 12/25/16 09:00 01/24/17 08:59 12/28/16 08:37 20 MG Vancomycin HCl 1000 mg/Sodium Chloride 270 ml @ 125 mls/hr Q24H IV 12/25/16 18:00 01/03/17 17:59 12/27/16 17:55 125 MLS/HR Carvedilol (Coreg Tab) 3.125 mg BID PO 12/27/16 21:00 01/26/17 20:59 12/28/16 08:38 3.125 MG Acetaminophen (Tylenol Tab) 1,000 mg Q8 PO 12/27/16 15:30 01/26/17 15:29 12/27/16 20:20 1,000 MG
[2016-12-28 11:27] VITALS: BP 106/60; PULSE 88; TEMP 37.1; O2SAT 94
[2016-12-28 11:51] VITALS: O2SAT 94
[2016-12-28] MEDS ORDERED: TRAMADOL HCL 50 MG TAB PO PRN (14:15)
--- NOTE | 2016-12-28 14:35 | Palliative Care Progress Note ---
Palliative Care Progress Note Date of Service Dec 28, 2016. Subjective I spoke with Dr. Domingo who met with the patient's two sons, Brian and Timothy. The decision was made to move to comfort measures only and discontinue all medications/treatments unrelated to comfort. At that time, patient was still somewhat awake but with significant decline from yesterday with increased weakness and drowsiness. At this time that I am seeing patient along with Dr. Domingo, patient has had major changes. She is now essentially unresponsive with agonal breathing. Primary RN aware and is keeping patient comfortable in bed. At this time it seems that patient is actively dying. Dr. Domingo will call patient's son to inform him of change.
[2016-12-28 16:09] VITALS: O2SAT 94
--- NOTE | 2016-12-28 18:48 | Progress Note ---
Progress Note Date of Service Dec 28, 2016. Progress Note PRONOUNCEMENT Patient ceased to breathe at 17:35. Family at bedside. Pupils midposition / fixed. No heart sounds or respirations. Cause of : metastatic carcinoma of lung director process engineering: Herber Waller. certificate will be completed electronically. .
--- NOTE | 2016-12-28 20:02 | Discharge Summary ---
Discharge Summary Date of Service Dec 28, 2016. Discharge Summary Admission Date: Dec 14, 2016 at 16:46 Discharge Date: Dec 28, 2016 Discharge Disposition: Principal Diagnosis: stage IV carcinoma of lung with extensive metastatic disease to chest, right axilla, ribs, right humerus OTHER ACUTE DIAGNOSES: right upper extremity swelling, probably due to metastatic lung cancer hypercalcemia, secondary to bone metastases and elevated PTH-related protein delirium / encephalopathy CHF, acute on chronic left ventricular diastolic heart failure . Secondary Diagnoses/Problems: Chronic and Resolved Medical Problems: Anemia CHF (congestive heart failure), diastolic Chronic kidney disease stage IV Chronic respiratory failure Coronary artery disease (suspected based on previous echocardiograms) COPD (chronic obstructive pulmonary disease) DM2 (diabetes mellitus, type 2) Hypertension Hypothyroidism Pulmonary hypertension Small cell carcinoma of right lung, stage IV Surgical Problems: H/O endarterectomy History of total abdominal hysterectomy S/p pleurectomy and pleurodesis S/P thoracentesis . Procedures: CT head IV meds echocardiogram venous duplex right upper extremity nuclear medicine bone scan CT chest CT right upper extremity . Consultations: Medical Oncology Orthopedics ID . Admission Information HPI (per Admitting provider): Patient is a 76yo F [facility] resident with a PMH of Stage IV non-small cell lung cancer (currently receiving chemo), DM II, CKD, severe COPD, CHF (with preserved EF), HTN and HLD who was sent to ER from heme onc clinic for evaluation of altered mental status and a swollen R arm. Patient was dropped off at clinic appointment by long-term transportation and was reportedly confused during appointment. Per clinic nursing note, was oriented to self and and year but not to location. Was mumbling about seeing bugs crawling, someone writing on the scott and seeing people with their eyes blacked out. Dr. Ortega sent patient to ER for further evaluation of hallucinations and visibly swollen R arm. Per discussion with long-term, patient was at baseline for mentation this morning. She is always oriented to self but not reliably to place or time. No formal diagnosis of dementia but care providers have noticed a steady decline in mentation. No recent medication changes with psychotropic effects. Patient complained of a painful R arm earlier this week and was started on PO Keflex on 12/09 for treatment of cellulitis. Venous doppler of R Arm was performed on 12/14 and was negative for DVT. Interview and discussed limited due to patient's mental status. Is alert and oriented to person but not to place or time. No apparent hallucinations. Does not know how she got to ER. Denies feeling confused. States that arm is less painful now. Unsure when pain started. Has no other current complaints on ROS. Denies fever, chills, headache, recent falls, visual changes, CP, SOB, abd pain , nausea, vomiting, MSK pain. Patient was admitted last month for treatment of UTI and general malaise from ongoing chemo treatment. . Physical Exam (per Admitting): General Appearance: WD/WN, no apparent distress Head: normocephalic, atraumatic Eyes: normal inspection, PERRL, EOMI, sclerae normal (conjunctiva normal ) ENT: normal ENT inspection, hearing grossly normal, pharynx normal (moist mucous membranes ) Neck: supple, no JVD, trachea midline Respiratory/Chest: chest non-tender, lungs clear, normal breath sounds, no respiratory distress, no accessory muscle use Cardiovascular: regular rate, rhythm, no murmur Abdomen/GI: normal bowel sounds, non tender, soft, no organomegaly Extremities/Musculoskelatal: normal inspection, no calf tenderness, non- tender, + swelling (1+ pitting edema bilaterally to knee. No skin breakdown. ) Neurologic/Psych: no motor/sensory deficits, alert (oriented to self. ), normal mood/affect, + pertinent finding (Confused, but seems to be at baseline ) Skin: + pertinent finding (Presence of erythematous and edematous R forearm and elbow with associated warmth. TTP. Reduced ROM 2/2 pain and swelling.) Hospital Course STAGE IV SMALL CELL CARCINOMA OF LUNG Diagnosed with small cell carcinoma of lung diagnoses in February of 2016; had metastatic pleural effusion at that time. Treated with palliative chemotherapy March --> October 2016. Presented with confusion and right upper extremity swelling as discussed below. Developed hypercalcemia. Medical Oncology consulted. PTH-related protein was elevated, due to underlying malignancy. Bone scan demonstrated increased uptake in RUE worrisome for metastatic disease. CT chest demonstrated enlarging right apical mass with lytic erosion into right 2nd rib and adjacent soft tissues; extensive mediastinal, right hilar, right subpectoral, right axillary metastatic adenopathy; multifocal pleural and parenchymal mets. CT right upper extremity demonstrated "lytic cortical erosion with spiculated aggressive-appearing periostitis". Conservative / palliative management recommended by Medical Oncology. Received analgesics as necessary. RIGHT UPPER EXTREMITY SWELLING Presented with RUE swelling, erythema, pain. Initial concern was that patient might have cellulitis. She was treated with antibiotics without significant improvement. CT findings as summarized above indicated extensive metastatic disease in right lung apex, right axilla, right humerus. Most likely that RUE pain & swelling due to malignancy rather than infection. HYPERCALCEMIA Serum calcium as high as 12.4. Differential diagnosis included bone metastases and PTHrP. Stopped cholecalciferol. PTH < 5.5. PTHrP elevated due to underlying malignancy. Discussed with Medical Oncology. Bone scan - increased uptake in right humerus, nonspecific. CT of chest and right upper extremity as summarized above indicated progressive disease with metastases to bone. Received IV NSS, furosemide, zoledronic acid with improvement. SUSPECTED CAD / ELEVATED TROPONIN History of segmental wall motion abnormalities on previous echo. No anginal symptoms. Serum troponin as high as 0.086. Total CPK and CPK-MB normal. EKG on admission showed NSR, RBBB, repolarization abnormalities. Echo did not show any wall motion abnormalities. Elevated troponin probably nonspecific elevation secondary to infection and not due to acute coronary syndrome. Received aspirin, carvedilol, statin. CHF Acute / chronic diastolic CHF, possibly secondary to hypertensive heart disease. Chest x-ray this morning showed cardiomegaly, mild interstitial prominence. Received diuretics as needed. HYPERTENSION Received carvedilol, hydralazine. COPD / CHRONIC HYPOXIC RESPIRATORY FAILURE Received O2, bronchodilators. PULMONARY HYPERTENSION Received O2, sildenafil. GERD Received PPI. CKD IV Serum creatinine 1.31 on admission. Creatinine 12/27 was 1.17. DM TYPE 2 Well-controlled. Hgb A1C = 6.0 11/15/16. Usually managed with glipizide- held during hospital stay. HYPOTHYROIDISM TSH = 11. Increased levothyroxine from 150 mcg to 200 mcg daily. DYSLIPIDEMIA Continue statin. ANEMIA Hgb 7.9-8.6. Chronic, multifactorial. Underlying malignancy. No indication for transfusion per guidelines. DEMENTIA / DELIRIUM Apparently never diagnosed with dementia, but family and NH staff reported progressive memory difficulties. Noted to have hallucinations prior to admission. Head CT did not show any evidence of acute stroke, bleed, mass. Probable encephalopathy / delirium, multifactorial. VTE PROPHYLAXIS Received SQ heparin. DISPOSITION Patient's condition worsened. Care transitioned to comfort measures. She ceased to breathe at 17:35 12/28/16 with family at bedside. . Discharge Instructions N/A .
--- NOTE | 2016-12-31 12:46 | EDITING REQUIRED CODING QUERY ---
CODING QUERY To promote full compliance with coding requirements relating to patient care, provider participation is requested in all cases of blast furnace keeper helper uncertainty. Please assist us with the question(s) below: Coding Question(s): Please clarify below, in your clinical opinion, regarding documentation that the right upper extremity swelling being most likely due to malignancy rather than infection. (x ) RUE Swelling most likely due to Malignancy - Specify the Malignancy ( x ) Metastatic right axilla lymph node malignancy ( ) Metastatic right hilar lymph node malignancy ( x ) Metastatic right humerus malignancy ( ) Metastatic rib malignancy (x ) Other Malignancy, Specify - enlarging right upper lobe mass ( ) RUE Swelling most likely due to lymphedema caused by malignancy ( ) RUE Swelling most likely due to other malignancy related condition, Specify Physician's Response(s): Thank you Sabina Rodas Principal Diagnosis: "_that condition established after study, to be chiefly responsible for occasioning the admission of the patient to the hospital for care." Co-Existing Principal Diagnosis: "_when two or more diagnoses equally meet the criteria for principal diagnosis as determined by the circumstances of admission, diagnostic work up, and/or therapy provided, and the Alphabetic Index, Tabular List, or another coding guideline does not provide sequencing direction, any one of the diagnoses may be sequenced first." "When the physician has documented what appears to be a current diagnosis in the body of the record, but has not included the diagnosis in the final diagnostic statement, the physician should be asked whether the diagnosis should be added." (Source [facility]oding [facility] 2 QTR90. p3-4)
== END 2016-12-28 20:01 | disposition expired | DRG 840 ==
LOC: EDBD 12:56 → C.EDC 12:57 → C.MED 16:46 → ENRESERV 17:31
PROVIDERS: ADMIT Family Medicine; ATTEND Hospitalist
DX: C77.3 Secondary and unspecified malignant neoplasm of axilla and upper limb lymph nodes (principal); G93.40 Encephalopathy, unspecified; I50.31 Acute diastolic (congestive) heart failure; C79.51 Secondary malignant neoplasm of bone; C34.91 Malignant neoplasm of unspecified part of right bronchus or lung; Z51.5 Encounter for palliative care; I13.0 Hypertensive heart and chronic kidney disease with heart failure and stage 1 through stage 4 chronic kidney disease, or unspecified chronic kidney disease; N18.4 Chronic kidney disease, stage 4 (severe); I50.32 Chronic diastolic (congestive) heart failure; J96.11 Chronic respiratory failure with hypoxia; C77.1 Secondary and unspecified malignant neoplasm of intrathoracic lymph nodes; E83.52 Hypercalcemia; R78.89 Finding of other specified substances, not normally found in blood; E78.5 Hyperlipidemia, unspecified; E03.9 Hypothyroidism, unspecified; E11.22 Type 2 diabetes mellitus with diabetic chronic kidney disease; K21.9 Gastro-esophageal reflux disease without esophagitis; D64.81 Anemia due to antineoplastic chemotherapy; I27.20 Pulmonary hypertension, unspecified; D63.1 Anemia in chronic kidney disease; J44.9 Chronic obstructive pulmonary disease, unspecified; I25.10 Atherosclerotic heart disease of native coronary artery without angina pectoris; F03.90 Unspecified dementia, unspecified severity, without behavioral disturbance, psychotic disturbance, mood disturbance, and anxiety; F41.9 Anxiety disorder, unspecified; Z51.81 Encounter for therapeutic drug level monitoring; Z79.899 Other long term (current) drug therapy; Z79.84 Long term (current) use of oral hypoglycemic drugs; Z79.82 Long term (current) use of aspirin; Z99.81 Dependence on supplemental oxygen; Z66 Do not resuscitate; Z87.891 Personal history of nicotine dependence; Z83.3 Family history of diabetes mellitus